=== PATIENT | male | born 1950 | race Caucasian/White ===

== ENCOUNTER → 2017-04-12 13:23 | Outpatient (CLI) | payer OTHER, SELFPAY ==
--- NOTE | 2017-04-12 13:34 | US_ITS ---
STUDY: RENAL ULTRASOUND - COMPLETE REASON FOR EXAM: Male, 66 years old. Stage III chronic renal disease. TECHNIQUE: Ultrasound evaluation of the kidneys was performed with real-time and static kelsey-scale imaging. COMPARISON: None. FINDINGS: RIGHT KIDNEY: Normal location of the right kidney, which is normal in size. The right kidney measures 9.8 cm x 4.6 cm x 4.9 cm. There is a normal cortex of the right kidney. The renal cortex measures 1.4 cm. There is a 0.7 cm x 0.8 cm x 0.6 cm cyst. There are no right renal calculi. There is no right hydronephrosis. DISTAL RIGHT URETER: There is non-visualization of the distal right ureter. There is no demonstrated right ureterovesical junction calculus. There is no demonstrated right ureteral jet. LEFT KIDNEY: Normal location of the left kidney, which is normal in size. The left kidney measures 9.0 cm x 3.3 cm x 4.2 cm. There is a normal cortex of the left kidney. The renal cortex measures 1.0 cm. There is a 0.9 cm x 1.1 cm x 0.8 cm cyst. There are no left renal calculi. There is no left hydronephrosis. DISTAL LEFT URETER: There is non-visualization of the distal left ureter. There is no demonstrated left ureterovesical junction calculus. There is no demonstrated left ureteral jet. BLADDER: The bladder is empty at the time of the examination. US/Kidney and Bladder IMPRESSION: Small bilateral renal cysts. Electronically Signed: Ant Lopez MD at 15:56 EST Tel [phone], Service support ,
== END ==
PROVIDERS: Family Provider Family Medicine; PCP Family Medicine
DX: N18.3 Chronic kidney disease, stage 3 (moderate) (principal)
CPT/HCPCS: 76770

== ENCOUNTER → 2017-05-27 10:21 | Outpatient (CLI) | payer OTHER, SELFPAY ==
[2017-05-27 11:13] LABS: Absolute Lymphocyte Count 1.68 X10^3/ul (0.83-4.51); Absolute Neutrophil Count 2.9 X10^3/uL (2.0-7.7); Basophil# 0.01 X10^3/uL; Basophil% 0.2 % (0-1); Eosinophil# 0.06 X10^3/uL; Eosinophils% 1.1 % (0-5); Hematocrit 43.8 % (40-54); Hemoglobin 14.7 g/dl (13.0-16.5); Lymphocyte # 1.68 X10^3/ul (4.0); Lymphocyte % 31.8 % (19-41); Mean Corp Hgb Conc 33.6 g/gl (32-36); Mean Corpuscular Hgb 30.9 pg (27.0-32.0); Mean Platelet Vol. 10.7 fl (6.2-12.0); Monocyte# 0.62 X10^3/uL; Monocyte% 11.7 % (0-10); Neutrophil # 2.89 X10^3/uL (2.7-7.7); Neutrophil % 54.6 % (47-70); Platelet Count 166 K/mm3 (150-450); RBC Distribution Width CV 13.9 % (11.6-14.6); RBC Distribution Width SD 45.6 fl (35.1-43.9); Red Blood Count 4.76 M/mm3 (4.6-6.2); White Blood Count 5.3 K/mm3 (4.4-11.0)
[2017-05-27 11:36] LABS: Albumin, Serum 3.7 g/dL (3.2-5.0); BUN 29 mg/dL (7-18); BUN/Creat Ratio 11.8 RATIO (10-20); Calcium,Total 8.4 mg/dL (8.5-10.1); Chloride 102 mmol/L (98-107); Creatinine, Serum 2.45 mg/dL (0.70-1.30); EST Glomerular Filtration Rate 28 mL/min (>60); Est Glom Filt Rate - Afr Amer 34 mL/min (>60); Glucose 295 mg/dL (74-106); POSITIVE COUNT NO; POSITIVE DIFFERENTIAL NO; POSITIVE MORPHOLOGY NO; Phosphorus 4.1 mg/dL (2.5-4.9); Potassium 3.8 mmol/L (3.5-5.1); Sodium Level 137 mmol/L (136-145)
[2017-05-27 11:43] LABS: Hemoglobin A1c 9.7 % (4.2-6.3); PTHIN 59.9 pg/mL (18.4-80.1); Vitamin D,25 Hydroxy 12.7 ng/mL (29.95-100.01)
[2017-05-27 13:19] LABS: Protein, Urine (Random) 40.9 mg/dL (<11.9); Protein:Creat Ratio 179 mg/g CRE (0-200)
== END ==
PROVIDERS: Family Provider Family Medicine; PCP Family Medicine
DX: E11.22 Type 2 diabetes mellitus with diabetic chronic kidney disease (principal); N18.3 Chronic kidney disease, stage 3 (moderate); E55.9 Vitamin D deficiency, unspecified
CPT/HCPCS: 36415; 80069; 82306; 82570; 83036; 83970; 84156; 85025

== ENCOUNTER → 2017-07-11 13:24 | Outpatient (CLI) | payer OTHER, SELFPAY ==
[2017-07-11 15:32] LABS: Absolute Lymphocyte Count 1.63 X10^3/ul (0.83-4.51); Absolute Neutrophil Count 4.9 X10^3/uL (2.0-7.7); Basophil# 0.03 X10^3/uL; Basophil% 0.4 % (0-1); Eosinophil# 0.05 X10^3/uL; Eosinophils% 0.7 % (0-5); Hemoglobin 14.6 g/dl (13.0-16.5); Lymphocyte # 1.63 X10^3/ul (4.0); Lymphocyte % 23.1 % (19-41); Mean Corp Hgb Conc 34.8 g/gl (32-36); Mean Corpuscular Hgb 31.5 pg (27.0-32.0); Mean Corpuscular Volume 90.5 fL (80-94); Mean Platelet Vol. 10.9 fl (6.2-12.0); Monocyte# 0.43 X10^3/uL; Monocyte% 6.1 % (0-10); Neutrophil # 4.91 X10^3/uL (2.7-7.7); Neutrophil % 69.6 % (47-70); Platelet Count 157 K/mm3 (150-450); RBC Distribution Width CV 13.6 % (11.6-14.6); RBC Distribution Width SD 44.9 fl (35.1-43.9); Red Blood Count 4.64 M/mm3 (4.6-6.2); White Blood Count 7.1 K/mm3 (4.4-11.0)
[2017-07-11 15:34] LABS: POSITIVE COUNT NO; POSITIVE DIFFERENTIAL NO; POSITIVE MORPHOLOGY NO
[2017-07-11 15:51] LABS: Albumin, Serum 3.8 g/dL (3.2-5.0); BUN 16 mg/dL (7-18); BUN/Creat Ratio 14.3 RATIO (10-20); Calcium,Total 8.9 mg/dL (8.5-10.1); Chloride 105 mmol/L (98-107); Creatinine, Serum 1.12 mg/dL (0.70-1.30); EST Glomerular Filtration Rate 70 mL/min (>60); Est Glom Filt Rate - Afr Amer 85 mL/min (>60); Glucose 173 mg/dL (74-106); Phosphorus 2.5 mg/dL (2.5-4.9); Potassium 3.4 mmol/L (3.5-5.1); Sodium Level 140 mmol/L (136-145)
== END ==
PROVIDERS: Family Provider Family Medicine; PCP Family Medicine
DX: N18.4 Chronic kidney disease, stage 4 (severe) (principal)
CPT/HCPCS: 36415; 80069; 85025

== ENCOUNTER → 2017-12-04 14:11 | Outpatient (CLI) | payer MEDICARE, OTHER, SELFPAY ==
[2017-12-04 15:57] LABS: Absolute Lymphocyte Count 1.56 X10^3/ul (0.83-4.51); Absolute Neutrophil Count 3.7 X10^3/uL (2.0-7.7); Basophil# 0.02 X10^3/uL; Basophil% 0.3 % (0-1); Eosinophil# 0.11 X10^3/uL; Eosinophils% 1.9 % (0-5); Hematocrit 46.4 % (40-54); Hemoglobin 15.3 g/dl (13.0-16.5); Lymphocyte # 1.56 X10^3/ul (4.0); Lymphocyte % 26.7 % (19-41); Mean Corpuscular Hgb 29.9 pg (27.0-32.0); Mean Corpuscular Volume 90.8 fL (80-94); Mean Platelet Vol. 11.3 fl (6.2-12.0); Monocyte# 0.42 X10^3/uL; Monocyte% 7.2 % (0-10); Neutrophil # 3.72 X10^3/uL (2.7-7.7); Neutrophil % 63.7 % (47-70); Platelet Count 151 K/mm3 (150-450); RBC Distribution Width CV 13.6 % (11.6-14.6); RBC Distribution Width SD 45.2 fl (35.1-43.9); Red Blood Count 5.11 M/mm3 (4.6-6.2); White Blood Count 5.8 K/mm3 (4.4-11.0)
[2017-12-04 16:01] LABS: POSITIVE COUNT NO; POSITIVE DIFFERENTIAL NO; POSITIVE MORPHOLOGY NO
[2017-12-04 16:46] LABS: Hemoglobin A1c 6.4 % (4.2-6.3)
[2017-12-04 16:54] LABS: Vitamin D,25 Hydroxy 41.3 ng/mL (29.95-100.01)
[2017-12-04 16:55] LABS: PTHIN 38.6 pg/mL (18.4-80.1)
[2017-12-04 16:56] LABS: ALB/GLOB Ratio 1.1 RATIO (0.9-2.4); AST(SGOT) 22 U/L (15-37); Alanine Aminotransfer ALT/SGPT 19 U/L (16-61); Albumin, Serum 3.5 g/dL (3.2-5.0); Alkaline Phosphatase 96 U/L (45-117); Anion Gap 4 (5-15); BUN 12 mg/dL (7-18); BUN/Creat Ratio 10.7 RATIO (10-20); Calcium,Total 8.6 mg/dL (8.5-10.1); Chloride 104 mmol/L (98-107); Cholesterol 142 mg/dL (200); Creatinine, Serum 1.12 mg/dL (0.70-1.30); EST Glomerular Filtration Rate 70 mL/min (>60); Est Glom Filt Rate - Afr Amer 85 mL/min (>60); Globulin 3.3 g/dL (2.2-4.2); Glucose 64 mg/dL (74-106); High Density Lipoprotein 36 mg/dL; Phosphorus 3.3 mg/dL (2.5-4.9); Potassium 3.5 mmol/L (3.5-5.1); Protein, Total 6.8 g/dL (6.4-8.2); Sodium Level 137 mmol/L (136-145); Thyroid Stim Hormone (TSH) 1.46 uIU/mL (0.358-3.74); Triglycerides 193 mg/dL; Very Low Density Lipoprotein 39 mg/dL (5-40)
== END ==
PROVIDERS: Family Provider Family Medicine; PCP Family Medicine; Referring Provider Family Medicine; Visit Provider Family Medicine
DX: I12.9 Hypertensive chronic kidney disease with stage 1 through stage 4 chronic kidney disease, or unspecified chronic kidney disease (principal); E11.22 Type 2 diabetes mellitus with diabetic chronic kidney disease; N18.4 Chronic kidney disease, stage 4 (severe); E78.5 Hyperlipidemia, unspecified; E55.9 Vitamin D deficiency, unspecified
CPT/HCPCS: 36415; 80053; 80061; 82306; 83036; 83970; 84100; 84443; 85025

== ENCOUNTER → 2017-12-05 10:54 | Outpatient (CLI) | payer MEDICARE, OTHER, SELFPAY ==
[2017-12-05 12:24] LABS: Cholesterol 136 mg/dL (200); High Density Lipoprotein 32 mg/dL; Triglycerides 260 mg/dL; Very Low Density Lipoprotein 52 mg/dL (5-40)
== END ==
PROVIDERS: Family Provider Family Medicine; PCP Family Medicine; Referring Provider Family Medicine; Visit Provider Family Medicine
DX: E78.5 Hyperlipidemia, unspecified (principal); I12.9 Hypertensive chronic kidney disease with stage 1 through stage 4 chronic kidney disease, or unspecified chronic kidney disease; E11.22 Type 2 diabetes mellitus with diabetic chronic kidney disease; N18.3 Chronic kidney disease, stage 3 (moderate)
CPT/HCPCS: 36415; 80061

== ENCOUNTER 2017-12-19 08:48 | Outpatient (RCR) | payer MEDICARE, OTHER, SELFPAY | END 2017-12-25 23:59 | LOC: DC 08:48 | PROVIDERS: Family Provider Family Medicine; PCP Family Medicine | DX: E11.65 Type 2 diabetes mellitus with hyperglycemia (principal); Z68.27 Body mass index [BMI] 27.0-27.9, adult; Z71.3 Dietary counseling and surveillance | CPT/HCPCS: G0108 ==

== ENCOUNTER 2017-12-23 05:37 | Inpatient (IN) | payer MEDICARE, OTHER, SELFPAY ==
[2017-12-23] VITALS (41 sets, daily range): BP systolic 81–130; BP diastolic 43–118; PULSE 45–82; RESP 11–21; TEMP 36.8; O2SAT 92–100; BMI 28.3; BMI 28.2
--- NOTE | 2017-12-23 05:38 | EKG12_ITS ---
Test Reason : CP Blood Pressure : / mmHG Vent. Rate : 047 BPM Atrial Rate : 047 BPM P-R Int : 196 ms QRS Dur : 084 ms QT Int : 482 ms P-R-T Axes : 050 032 108 degrees QTc Int : 426 ms Sinus bradycardia Low voltage QRS ST elevation consider inferior injury or acute infarct ACUTE MT / STEMI Consider right ventricular involvement in acute inferior infarct Abnormal ECG Confirmed by FILEMON BOLIVAR, MERVAT ([id number]), newspaper photo editor DUTCH JOHNSON ([id number]) on 12/24/2017 10:30:58 AM Referred By: Tyler Sena Confirmed By:MERVAT COLBERT MD
--- NOTE | 2017-12-23 05:40 | ED.RN ---
NO OLD EKGS IN MUSE.
[2017-12-23] MEDS: 0.9% Normal Saline 1,000 ML 999 ML IV (05:50)
--- NOTE | 2017-12-23 05:50 | RAD_ITS ---
STUDY: X-RAY CHEST REASON FOR EXAM: Male, 67 years old. STEMI alert, chest pain TECHNIQUE: Single AP portable view of the chest. COMPARISON: None. FINDINGS: The lungs are clear and expanded. There is no demonstrated pleural abnormality. Normal size heart. Normal mediastinum and malcolm. Normal visualized pulmonary arteries. Normal visualized aortic arch and descending thoracic aorta. Normal visualized thoracic spine. Normal visualized ribs, clavicles, and shoulders. There is no demonstrated abnormality of the visualized soft tissue structures of the upper abdomen. RAD/Chest 1 View (Portable) IMPRESSION: Normal x-ray examination of the chest. Electronically Signed: Ramandeep Saunders MD at 6:10 EDT , Service support ,
[2017-12-23] MEDS: Aspirin 81 MG TAB.CHEW 324 MG PO (05:53)
[2017-12-23] MEDS: Heparin Injection (Vial) 5,000 UNIT/ML VIAL 6000 UNIT IV (06:03)
--- NOTE | 2017-12-23 06:06 | ED.VISSUMM ---
- ER Visit Summary Date of Service: 12/23/17 Chief Complaint: Acute chest pain History of Present Illness: The patient is a 67 M history of coronary disease with 6 prior cardiac stents. The most recent placed in 2014. Patient also has a history of high blood pressure, high cholesterol, reflux and insulin-dependent diabetes. Patient states that around 2:30 this morning he awoke with chest pressure in the midsternal region. With pain radiating to his left arm. States this has been constant. The nitroglycerin he had at home the prescription is old so he did not take any. He did take his normal Plavix on Saturday. And he takes daily baby aspirin. He denies shortness of breath. He denies vomiting or diarrhea. No melena. No prior DVT or PE. No recent travel, surgery or hospitalization. Physical Examination: Initial blood pressure 130/118. Heart rates 45. Pulse ox 98% on room air no hypoxia. H EENT exam unremarkable. Neck nontender. Lungs clear to auscultation bilaterally. Heart bradycardic rate about 50 no murmur. Chest wall nontender. But he is diaphoretic. Abdomen soft and nontender. Normal bowel sounds. No peritoneal signs. Patient is moving all 4 extremities. They are neurovascularly intact. 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 Normal dorsi and plantar flexion. Equal and symmetrical radial pulses. Neurologically he is awake and alert with no focal motor deficits. Test Results: Patient's initial EKG shows an acute inferior OR with ST elevation in leads 2, 3 and aVF. He has bradycardic with a rate of 49. He has ST depression in leads V1 through V6 and also 1 and aVL. CBC shows a white count of 13.7. Hemoglobin of 14. Electrolytes show potassium of 3.0. Creatinine of 1.2. Normal gap. PT and PTT are all normal. Troponin is normal less than 0.015. Chest x-ray shows a normal cardiac silhouette mediastinum. No acute abnormality. Read by the radiologist and myself. Emergency Department Course and Treatment: A STEMI team was called shortly after the patient's arrival and immediately after his EKG was done. I have already spoken to Dr. Odell Sena the supervisor erection shop who is on his way in as is the cardiac catheterization team. Patient will be given 324 of aspirin. Started on a heparin bolus and drip. He is currently receiving a liter of normal saline. A second IV has been placed. Patient is already consented for the cardiac catheterization and intervention as needed. Patient did become hypotensive and was started on a liter of normal saline. His heart rate is improving and is currently 65. Treatment Plan: Once the cardiac catheterization team and supervisor erection shop arrive the patient will be taken immediately to the Program Management Specialist. Disposition: admit Impression: Acute inferior OR Acute bradycardia and hypotension History of prior CAD with 6 cardiac stents. History of insulin-dependent diabetes, hypertension and high cholesterol. This note was generated with [employer] dictation software. It may contain incorrect words, spelling, and punctuation that were not noted in review of the chart prior to signing ED Disposition - Plan for ED Patient: Chief Complaint: Chest Pain
--- NOTE | 2017-12-23 06:07 | PCM.HP.STD ---
Problem List (1) STEMI (ST elevation myocardial infarction) Status: Acute Qualifiers: Involved coronary artery: unspecified coronary artery Qualified Code(s): I21.3 - ST elevation (STEMI) myocardial infarction of unspecified site (2) HTN (hypertension) Status: Chronic Qualifiers: Hypertension type: essential hypertension Qualified Code(s): I10 - Essential (primary) hypertension (3) HLD (hyperlipidemia) Status: Chronic Qualifiers: Hyperlipidemia type: pure hypercholesterolemia Qualified Code(s): E78.00 - Pure hypercholesterolemia, unspecified; E78.0 - Pure hypercholesterolemia (4) CAD (coronary artery disease) Status: Chronic Qualifiers: Coronary Disease-Associated Artery/Lesion type: unspecified vessel or lesion type [place] vs. transplanted heart: unspecified whether [place] or transplanted heart Associated angina: angina presence unspecified Qualified Code(s): I25.10 - Atherosclerotic heart disease of [place] coronary artery without angina pectoris (5) Diabetes mellitus, type II Status: Chronic Qualifiers: Diabetes mellitus skilled nursing insulin use: without skilled nursing use Diabetes mellitus complication status: with unspecified complications Qualified Code(s): E11.8 - Type 2 diabetes mellitus with unspecified complications (6) GERD (gastroesophageal reflux disease) Status: Chronic Qualifiers: Esophagitis presence: esophagitis presence not specified Qualified Code(s): K21.9 - Gastro-esophageal reflux disease without esophagitis History of Present Illness Date of Admission: 12/23/17 Chief Complaint: Chest pain The patient is a 67 y/o M w/ PMHx: CAD s/p PCI x 6, HTN, HLD, GERD, Diabetes mellitus type II who presents to the [facility] ED on 12/23/17 with history of onset midsternal chest pressure, described as tightness with radiation to his BL UE with no associated dyspnea, nausea, emesis or diaphoresis while laying in bed, rated initially 10/10 and improving while in the ED to 8/10; however, continued discomfort to his BL UE, noting initially more uncomfortable in his LUE and then transitioning to his RUE. In the ED STEMI called upon EKG being obtained w/ noted ST elevations II, III and aVF. Cardiology consulted per ED and patient administered 81 mg po x 4 with noted compliance with his plavix regimen therefore heparin bolus and additional antiplt load deferred per Cardiology. Additional work-up in the ED included T 98.3, HR 45-->60, BP 130/118-->93/64, RR 17, 98% on RA, CBC w/ WBC 13.7, Hgb 14.5, Plts 220 with L shift, pending coags, pending BMP, pending trop upon evaluation, CXR without acute findings. Past Medical History Past Medical History (Chronic Problems): Chronic Problems HTN (hypertension) (Chronic) HLD (hyperlipidemia) (Chronic) CAD (coronary artery disease) (Chronic) Diabetes mellitus, type II (Chronic) GERD (gastroesophageal reflux disease) (Chronic) Allergies lisinopril Allergy (Verified 12/23/17 05:41) COUGH Home Medications: Ambulatory Orders Medication Instructions Recorded Aspirin E.C. [Ecotrin] 81 mg PO DAILY@0800 12/23/17 Atorvastatin Calcium [Lipitor] 80 mg PO QHS 12/23/17 Carvedilol [Coreg] 12.5 mg PO BID 12/23/17 Chlorthalidone 25 mg PO DAILY 12/23/17 Clopidogrel Bisulfate [Plavix] 75 mg PO DAILY 12/23/17 Lactobacillus Acidophilus 1 capsule PO DAILY 12/23/17 [Acidophilus] Lansoprazole 15 mg PO DAILY 12/23/17 Psyllium [Metamucil] 1 packet PO DAILY 12/23/17 Surgical History: - - PCI x 6, appendectomy, eye surgery in youth. Psychiatric History: Depression Lives: Alone Smoking Status: Never smoker Tobacco Use: Non-smoker Alcohol: None Drugs: None - *Family History Maternal History Items: - - Patient denies any marked maternal or paternal family history of heart disease, diabetes, cancer. Paternal History Items: - - Patient denies any marked maternal or paternal family history of heart disease, diabetes, cancer. Review of Systems Constitutional: Denies: Chills, Fever, Weight Change HEENT: Denies: Head Aches, Sinus Congestion, Sinus Drainage Cardiovascular: Reports: Chest Pain, Chest Pressure, Chest Tightness. Denies: Light Headedness, Orthopnea, Palpitations Respiratory: Denies: Cough, Shortness of breath at rest, Sputum production Gastrointestinal: Denies: Abdominal Pain, Nausea, Vomiting Genitourinary: Denies: Dysuria Musculoskeletal: Reports: Arm Pain. Denies: Joint Pain, Joint Tenderness Skin: Denies: Rash, Wounds Neurological: Denies: Numbness, Tingling, Focal weakness Psychiatric: Reports: Depression. Denies: Anxiety, Homicidal Ideations, Suicidal Ideations Hematologic/ Lymphatic: Reports: Easy Bruising, Easy Bleeding VTE Information - Inpt Only VTE Present on Admission: No VTE Mechan Device Prophylaxis: SCD's VTE Pharm Prophylaxis ordered?: Yes Patient Problems: Active and Suspected Problems STEMI (ST elevation myocardial infarction) (Acute) Subjective: Seated upright in the ED bed, fatigued appearance, uncomfortable appearing, notes ongoing pain to the BL UE currently, chest midsternal pressure lessening. Objective: Physical Examination: General: awake, alert, oriented x 3 and cooperative, seated upright in the ED bed, notes uncomfortable. Skin: normal color, turgor, no icterus, cyanosis. HEENT: AT/NC, EOMI, PERRLA, MMM, no carotid bruits or JVD noted. Lungs: CTA bilaterally, moderate effort, mild decrease BL bases, no rales, ronchi or wheezing. Heart: Regular rate and rhythm; no gallop, rub audible. Abdomen: soft, overweight, TTP, ND, normal BS, no HSM. Extremities: no cyanosis, clubbing, or edema. Neurological: patient awake, alert, oriented x 3; cognitive function intact; pupils equally reactive to light and accomodation; cranial nerves II-XII grossly normal, moving all 4 extremities, no focal deficits, strength moderately globally decreased secondary to acute presentation. Psychiatric: affect appears anxious, no acute evidence of depressive feelings. - Physical Exam Vital Signs Temp Pulse Resp BP Pulse Ox 98.3 F 45 L 17 130/118 H 98 12/23/17 05:38 12/23/17 05:38 12/23/17 05:38 12/23/17 05:38 12/23/17 05:38 Oxygen Delivery Method Room Air Weight: 186 lb 4.65 oz Body Mass Index (BMI) 28.3 Laboratory Tests Past 24 Hrs 12/23/17 12/23/17 12/23/17 05:58 05:58 05:58 WBC Pending RBC Pending Hgb Pending Hct Pending MCV Pending MCH Pending MCHC Pending RDW Pending RDW Differential Pending Plt Count Pending Neut % (Auto) Pending Absolute Neuts (auto) Pending Total Counted Pending PT Pending INR Pending APTT Pending Sodium Pending Potassium Pending Chloride Pending Carbon Dioxide Pending Anion Gap Pending BUN Pending Creatinine Pending Est GFR (MDRD) Af Amer Pending Est GFR (MDRD) Non-Af Pending BUN/Creatinine Ratio Pending Glucose Pending Calcium Pending Troponin I Pending Assessment/Plan All Active Problems STEMI (ST elevation myocardial infarction) (Acute) The patient is a 67 y/o M w/ PMHx: CAD s/p PCI x 6, HTN, HLD, GERD, Diabetes mellitus type II who presents to the [facility] ED on 12/23/17 with history of onset midsternal chest pressure, described as tightness with radiation to his BL UE with no associated dyspnea, nausea, emesis or diaphoresis while laying in bed, rated initially 10/10 and improving while in the ED to 8/10; however, continued discomfort to his BL UE, noting initially more uncomfortable in his LUE and then transitioning to his RUE. (1) Chest Pain w/ Acute STEMI: EKG in ED w/ Inferior STEMI w/ ST elevation II, III, aVF, CXR w/ no acute process. Trop pending upon evaluation. Transitioning now to the cardiac catheterization lab per Cardiology direction. Following intervention, if appropriate, will transition to the ICU, maintain on a monitored bed, continue serial cardiac enzymes and EKGs. Obtain magnesium level upon admission. Continue medical management w/ asa, plavix unless transitioned to Brillinta per Cardiology discretion, BB, statin w/ AM FLP. ECHO ordered. ASA, NG, morphine. (2) CAD: s/p NH w/ PCI x 6, continue home regimen asa, plavix unless transitioned to Brillinta per Cardiology, statin, BB. (3) Diabetes mellitus type II: Not on regimen, obtain HgBA1c, nutrition consultation for education and teaching, once off cardiac catheterization bedrest initiate ADA diet, accu checks w/ ISS. (4) Hypertension: Continue home regimen including Coreg, chlorthalidone although will defer to cardiology for regimen alterations, PRN hydralazine. (5) Hyperlipidemia: Continue home statin regimen. AM FLP. (6) GERD: PPI. (7) DVT Prophylaxis: SCDs, start lovenox 12/24/17. Code Visit Inpatient E&M: 12739 Init Hosp L3
[2017-12-23] MEDS: HEPARIN/D5w 25,000 UNITS 25,000 UNITS/250 ML IV.SOLN. 12 UNITS IV (06:08)
[2017-12-23 06:09] LABS: Absolute Lymphocyte Count 2.46 X10^3/ul (0.83-4.51); Absolute Neutrophil Count 10.1 X10^3/uL (2.0-7.7); Basophil# 0.03 X10^3/uL; Basophil% 0.2 % (0-1); Eosinophil# 0.17 X10^3/uL; Eosinophils% 1.2 % (0-5); Hematocrit 42.6 % (40-54); Hemoglobin 14.5 g/dl (13.0-16.5); Lymphocyte # 2.46 X10^3/ul (4.0); Mean Corpuscular Hgb 30.4 pg (27.0-32.0); Mean Corpuscular Volume 89.3 fL (80-94); Mean Platelet Vol. 10.5 fl (6.2-12.0); Monocyte# 0.91 X10^3/uL; Monocyte% 6.7 % (0-10); Neutrophil # 10.05 X10^3/uL (2.7-7.7); Neutrophil % 73.6 % (47-70); Platelet Count 220 K/mm3 (150-450); RBC Distribution Width CV 13.5 % (11.6-14.6); RBC Distribution Width SD 44.2 fl (35.1-43.9); Red Blood Count 4.77 M/mm3 (4.6-6.2); White Blood Count 13.7 K/mm3 (4.4-11.0)
[2017-12-23 06:10] LABS: POSITIVE COUNT NO; POSITIVE DIFFERENTIAL NO; POSITIVE MORPHOLOGY NO
--- NOTE | 2017-12-23 06:11 | ED.RN ---
PER PT REQUEST, DAUGHTER CONTACTED
[2017-12-23 06:12] LABS: Partial Thromboplast Time 31.9 Seconds (24.1-36.2)
--- NOTE | 2017-12-23 06:12 | ED.DCSUM_ITS ---
- ER Visit Summary Date of Service: 12/23/17 Chief Complaint: Acute chest pain History of Present Illness: The patient is a 67 M history of coronary disease with 6 prior cardiac stents. The most recent placed in 2014. Patient also has a history of high blood pressure, high cholesterol, reflux and insulin-dependent diabetes. Patient states that around 2:30 this morning he awoke with chest pressure in the midsternal region. With pain radiating to his left arm. States this has been constant. The nitroglycerin he had at home the prescription is old so he did not take any. He did take his normal Plavix on Saturday. And he takes daily baby aspirin. He denies shortness of breath. He denies vomiting or diarrhea. No melena. No prior DVT or PE. No recent travel, surgery or hospitalization. Physical Examination: Initial blood pressure 130/118. Heart rates 45. Pulse ox 98% on room air no hypoxia. H EENT exam unremarkable. Neck nontender. Lungs clear to auscultation bilaterally. Heart bradycardic rate about 50 no murmur. Chest wall nontender. But he is diaphoretic. Abdomen soft and nontender. Normal bowel sounds. No peritoneal signs. Patient is moving all 4 extremities. They are neurovascularly intact. 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 Normal dorsi and plantar flexion. Equal and symmetrical radial pulses. Neurologically he is awake and alert with no focal motor deficits. Test Results: Patient's initial EKG shows an acute inferior MT with ST elevation in leads 2, 3 and aVF. He has bradycardic with a rate of 49. He has ST depression in leads V1 through V6 and also 1 and aVL. CBC shows a white count of 13.7. Hemoglobin of 14. Electrolytes show potassium of 3.0. Creatinine of 1.2. Normal gap. PT and PTT are all normal. Troponin is normal less than 0.015. Chest x-ray shows a normal cardiac silhouette mediastinum. No acute abnormality. Read by the radiologist and myself. Emergency Department Course and Treatment: A STEMI team was called shortly after the patient's arrival and immediately after his EKG was done. I have already spoken to Dr. Odell Sena the net development manager who is on his way in as is the cardiac catheterization team. Patient will be given 324 of aspirin. Started on a heparin bolus and drip. He is currently receiving a liter of normal saline. A second IV has been placed. Patient is already consented for the cardiac catheterization and intervention as needed. Patient did become hypotensive and was started on a liter of normal saline. His heart rate is improving and is currently 65. Treatment Plan: Once the cardiac catheterization team and net development manager arrive the patient will be taken immediately to the Plug Sorter. Disposition: admit Impression: Acute inferior MT Acute bradycardia and hypotension History of prior CAD with 6 cardiac stents. History of insulin-dependent diabetes, hypertension and high cholesterol. This note was generated with [employer] dictation software. It may contain incorrect words, spelling, and punctuation that were not noted in review of the chart prior to signing ED Disposition - Plan for ED Patient: Chief Complaint: Chest Pain
--- NOTE | 2017-12-23 06:14 | HP.PCM_ITS ---
Problem List (1) STEMI (ST elevation myocardial infarction) Status: Acute Qualifiers: Involved coronary artery: unspecified coronary artery Qualified Code(s): I21.3 - ST elevation (STEMI) myocardial infarction of unspecified site (2) HTN (hypertension) Status: Chronic Qualifiers: Hypertension type: essential hypertension Qualified Code(s): I10 - Essential (primary) hypertension (3) HLD (hyperlipidemia) Status: Chronic Qualifiers: Hyperlipidemia type: pure hypercholesterolemia Qualified Code(s): E78.00 - Pure hypercholesterolemia, unspecified; E78.0 - Pure hypercholesterolemia (4) CAD (coronary artery disease) Status: Chronic Qualifiers: Coronary Disease-Associated Artery/Lesion type: unspecified vessel or lesion type [place] vs. transplanted heart: unspecified whether [place] or transplanted heart Associated angina: angina presence unspecified Qualified Code(s): I25.10 - Atherosclerotic heart disease of [place] coronary artery without angina pectoris (5) Diabetes mellitus, type II Status: Chronic Qualifiers: Diabetes mellitus fci insulin use: without fci use Diabetes mellitus complication status: with unspecified complications Qualified Code(s): E11.8 - Type 2 diabetes mellitus with unspecified complications (6) GERD (gastroesophageal reflux disease) Status: Chronic Qualifiers: Esophagitis presence: esophagitis presence not specified Qualified Code(s): K21.9 - Gastro-esophageal reflux disease without esophagitis History of Present Illness Date of Admission: 12/23/17 Chief Complaint: Chest pain The patient is a 67 y/o M w/ PMHx: CAD s/p PCI x 6, HTN, HLD, GERD, Diabetes mellitus type II who presents to the [facility] ED on 12/23/17 with history of onset midsternal chest pressure, described as tightness with radiation to his BL UE with no associated dyspnea, nausea, emesis or diaphoresis while laying in bed, rated initially 10/10 and improving while in the ED to 8/10; however, continued discomfort to his BL UE, noting initially more uncomfortable in his LUE and then transitioning to his RUE. In the ED STEMI called upon EKG being obtained w/ noted ST elevations II, III and aVF. Cardiology consulted per ED and patient administered 81 mg po x 4 with noted compliance with his plavix regimen therefore heparin bolus and additional antiplt load deferred per Cardiology. Additional work-up in the ED included T 98.3, HR 45-->60, BP 130/118-->93/64, RR 17, 98% on RA, CBC w/ WBC 13.7, Hgb 14.5, Plts 220 with L shift, pending coags, pending BMP, pending trop upon evaluation, CXR without acute findings. Past Medical History Past Medical History (Chronic Problems): Chronic Problems HTN (hypertension) (Chronic) HLD (hyperlipidemia) (Chronic) CAD (coronary artery disease) (Chronic) Diabetes mellitus, type II (Chronic) GERD (gastroesophageal reflux disease) (Chronic) Allergies lisinopril Allergy (Verified 12/23/17 05:41) COUGH Home Medications: Ambulatory Orders Medication Instructions Recorded Aspirin E.C. [Ecotrin] 81 mg PO DAILY@0800 12/23/17 Atorvastatin Calcium [Lipitor] 80 mg PO QHS 12/23/17 Carvedilol [Coreg] 12.5 mg PO BID 12/23/17 Chlorthalidone 25 mg PO DAILY 12/23/17 Clopidogrel Bisulfate [Plavix] 75 mg PO DAILY 12/23/17 Lactobacillus Acidophilus 1 capsule PO DAILY 12/23/17 [Acidophilus] Lansoprazole 15 mg PO DAILY 12/23/17 Psyllium [Metamucil] 1 packet PO DAILY 12/23/17 Surgical History: - - PCI x 6, appendectomy, eye surgery in youth. Psychiatric History: Depression Lives: Alone Smoking Status: Never smoker Tobacco Use: Non-smoker Alcohol: None Drugs: None - *Family History Maternal History Items: - - Patient denies any marked maternal or paternal family history of heart disease, diabetes, cancer. Paternal History Items: - - Patient denies any marked maternal or paternal family history of heart disease, diabetes, cancer. Review of Systems Constitutional: Denies: Chills, Fever, Weight Change HEENT: Denies: Head Aches, Sinus Congestion, Sinus Drainage Cardiovascular: Reports: Chest Pain, Chest Pressure, Chest Tightness. Denies: Light Headedness, Orthopnea, Palpitations Respiratory: Denies: Cough, Shortness of breath at rest, Sputum production Gastrointestinal: Denies: Abdominal Pain, Nausea, Vomiting Genitourinary: Denies: Dysuria Musculoskeletal: Reports: Arm Pain. Denies: Joint Pain, Joint Tenderness Skin: Denies: Rash, Wounds Neurological: Denies: Numbness, Tingling, Focal weakness Psychiatric: Reports: Depression. Denies: Anxiety, Homicidal Ideations, Suicidal Ideations Hematologic/ Lymphatic: Reports: Easy Bruising, Easy Bleeding VTE Information - Inpt Only VTE Present on Admission: No VTE Mechan Device Prophylaxis: SCD's VTE Pharm Prophylaxis ordered?: Yes Patient Problems: Active and Suspected Problems STEMI (ST elevation myocardial infarction) (Acute) Subjective: Seated upright in the ED bed, fatigued appearance, uncomfortable appearing, notes ongoing pain to the BL UE currently, chest midsternal pressure lessening. Objective: Physical Examination: General: awake, alert, oriented x 3 and cooperative, seated upright in the ED bed, notes uncomfortable. Skin: normal color, turgor, no icterus, cyanosis. HEENT: AT/NC, EOMI, PERRLA, MMM, no carotid bruits or JVD noted. Lungs: CTA bilaterally, moderate effort, mild decrease BL bases, no rales, ronchi or wheezing. Heart: Regular rate and rhythm; no gallop, rub audible. Abdomen: soft, overweight, TTP, ND, normal BS, no HSM. Extremities: no cyanosis, clubbing, or edema. Neurological: patient awake, alert, oriented x 3; cognitive function intact; pupils equally reactive to light and accomodation; cranial nerves II-XII grossly normal, moving all 4 extremities, no focal deficits, strength moderately globally decreased secondary to acute presentation. Psychiatric: affect appears anxious, no acute evidence of depressive feelings. - Physical Exam Vital Signs Temp Pulse Resp BP Pulse Ox 98.3 F 45 L 17 130/118 H 98 12/23/17 05:38 12/23/17 05:38 12/23/17 05:38 12/23/17 05:38 12/23/17 05:38 Oxygen Delivery Method Room Air Weight: 186 lb 4.65 oz Body Mass Index (BMI) 28.3 Laboratory Tests Past 24 Hrs 12/23/17 12/23/17 12/23/17 05:58 05:58 05:58 WBC Pending RBC Pending Hgb Pending Hct Pending MCV Pending MCH Pending MCHC Pending RDW Pending RDW Differential Pending Plt Count Pending Neut % (Auto) Pending Absolute Neuts (auto) Pending Total Counted Pending PT Pending INR Pending APTT Pending Sodium Pending Potassium Pending Chloride Pending Carbon Dioxide Pending Anion Gap Pending BUN Pending Creatinine Pending Est GFR (MDRD) Af Amer Pending Est GFR (MDRD) Non-Af Pending BUN/Creatinine Ratio Pending Glucose Pending Calcium Pending Troponin I Pending Assessment/Plan All Active Problems STEMI (ST elevation myocardial infarction) (Acute) The patient is a 67 y/o M w/ PMHx: CAD s/p PCI x 6, HTN, HLD, GERD, Diabetes mellitus type II who presents to the [facility] ED on 12/23/17 with history of onset midsternal chest pressure, described as tightness with radiation to his BL UE with no associated dyspnea, nausea, emesis or diaphoresis while laying in bed, rated initially 10/10 and improving while in the ED to 8/10; however, continued discomfort to his BL UE, noting initially more uncomfortable in his LUE and then transitioning to his RUE. (1) Chest Pain w/ Acute STEMI: EKG in ED w/ Inferior STEMI w/ ST elevation II, III, aVF, CXR w/ no acute process. Trop pending upon evaluation. Transitioning now to the cardiac catheterization lab per Cardiology direction. Following intervention, if appropriate, will transition to the ICU, maintain on a monitored bed, continue serial cardiac enzymes and EKGs. Obtain magnesium level upon admission. Continue medical management w/ asa, plavix unless transitioned to Brillinta per Cardiology discretion, BB, statin w/ AM FLP. ECHO ordered. ASA, NG, morphine. (2) CAD: s/p VT w/ PCI x 6, continue home regimen asa, plavix unless transitioned to Brillinta per Cardiology, statin, BB. (3) Diabetes mellitus type II: Not on regimen, obtain HgBA1c, nutrition consultation for education and teaching, once off cardiac catheterization bedrest initiate ADA diet, accu checks w/ ISS. (4) Hypertension: Continue home regimen including Coreg, chlorthalidone although will defer to cardiology for regimen alterations, PRN hydralazine. (5) Hyperlipidemia: Continue home statin regimen. AM FLP. (6) GERD: PPI. (7) DVT Prophylaxis: SCDs, start lovenox 12/24/17. Code Visit Inpatient E&M: 16042 Init Hosp L3
[2017-12-23 06:21] LABS: Anion Gap 9 (5-15); BUN 13 mg/dL (7-18); BUN/Creat Ratio 10.8 RATIO (10-20); Calcium,Total 8.9 mg/dL (8.5-10.1); Chloride 104 mmol/L (98-107); EST Glomerular Filtration Rate 65 mL/min (>60); Est Glom Filt Rate - Afr Amer 78 mL/min (>60); Estimated Creatinine Clearance 59.38 ml/min; Glucose 95 mg/dL (74-106); Sodium Level 142 mmol/L (136-145)
--- NOTE | 2017-12-23 06:22 | EKG12_ITS ---
Test Reason : CP Blood Pressure : / mmHG Vent. Rate : 049 BPM Atrial Rate : 049 BPM P-R Int : 204 ms QRS Dur : 086 ms QT Int : 442 ms P-R-T Axes : 083 030 110 degrees QTc Int : [address] elevation consider inferior injury or acute infarct ACUTE MO / STEMI Consider right ventricular involvement in acute inferior infarct Abnormal ECG Confirmed by FILEMON BOLIVAR, MERVAT ([id number]), senior technical editor DUTCH JOHNSON ([id number]) on 12/24/2017 10:31:21 AM Referred By: Tyler Sena Confirmed By:MERVAT COLBERT MD
[2017-12-23] MEDS: 0.9% Normal Saline 1,000 ML 150 ML IV (07:00)
--- NOTE | 2017-12-23 07:42 | ECHOD_ITS ---
Reason For Study: CHEST PAIN Procedure This was a 2D Doppler, Color Flow transthoracic echocardiogram. Exam performed portable in patient room. Left Ventricle Normal size and thickness. The estimated ejection fraction is 65 %. Normal diastology for age. No regional wall motion abnormalities noted. Right Ventricle Normal size and thickness. Normal systolic function. Atria Normal left atrium. Normal right atrium. Normal atrial septum. Mitral Valve The mitral valve is structurally normal. No prolapse or stenosis seen. Tricuspid Valve Normal tricuspid valve. Trivial tricuspid valve insufficiency. Right ventricular systolic pressure estimated to be 31 mmHg. Aortic Valve Trisinus/trileaflet aortic valve. Mild focal aortic valve thickening. Pulmonic Valve Normal pulmonic valve. Great Vessels Normal aortic root. Normal arch. Normal inferior vena cava. Inferior vena cava collapse with respiration. Pericardium/Pleural No pericardial effusion. MMode/2D Measurements & Calculations LVIDd: 5.0 cm IVSd: 1.1 cm Ao root diam: 3.3 cm LVIDs: 3.6 cm LVPWd: 1.0 cm RVDd: 3.8 cm FS: 29.3 % LAV(MOD-bp): 56.9 ml EDV(MOD-sp4): 118.3 ml EDV(MOD-sp2): 150.9 ml LAV(MOD-bp) Indexed: 28.7 ml/m2 ESV(MOD-sp4): 56.8 ml EF(MOD-sp2): 53.8 % LAV(MOD-sp2): 62.2 ml EF(MOD-sp4): 52.0 % LAV(MOD-sp4): 51.0 ml SV(MOD-sp4): 61.5 ml SV(MOD-sp2): 81.2 ml LA A4 area: 18.0 cm2 LA dimension(2D): 4.0 cm RA A4 area: 15.1 cm2 Time Measurements MV dec time: 0.21 sec Doppler Measurements & Calculations MV E max cornelio: 69.9 cm/sec Lat Peak E' Cornelio: 14.3 cm/sec Med Peak E' Cornelio: 6.8 cm/sec MV A max cornelio: 58.6 cm/sec E/E' lat: 4.9 E/E' med: 10.3 MV E/A: 1.2 Ao V2 max: 110.1 cm/sec LV V1 max: 86.6 cm/sec PA V2 max: 81.8 cm/sec Ao max P.8 mmHg LV V1 max P.0 mmHg TR max cornelio: 255.3 cm/sec TR max P.1 mmHg Interpretation Summary The estimated ejection fraction is 65 %. Normal diastology for age. Trivial tricuspid valve insufficiency. Right ventricular systolic pressure estimated to be 31 mmHg. There is no comparison study available. Ordering Physician: Jazmyn Velez Referring Physician: DOUG GALVAN Performed By: Jessica Flores, JULITA, RVT
--- NOTE | 2017-12-23 07:45 | EKG12_ITS ---
Test Reason : S/P PCI
--- NOTE | 2017-12-23 07:55 | CL.D_ITS ---
Patient Name: DOMINGA TREJO Study Date: 12/23/2017 Performing: Tyler Sena MD Ht: 68 inches 172.72 cm : 1950 Wt: 188.2 lbs 85.27 kg Age: 67 Gender: male BSA: 1.99 PROCEDURE(S) PERFORMED [id number]/COR/LV [id number], LAURA AND/OR PTCA, ARTERY OR GRAFT, SINGLE VESSEL CLINICAL PROFILE AND INDICATIONS Patient presents with STEMI for emergent cardiac cath. Indications: ACS <= 24 hrs, New Onset Angina <= 2 months, Stable Known CAD, Cardiac Arrythmia Heart Failure: None Stress/Imaging Stress/Image Study Performed: No Angina Classification Anginal Classification w/in 2 Weeks: No symptoms CAD Presentations: STEMI. Symptom onset Date/Time: 12/23/2017 at 0030 Comorbidities/Risk Factors: Hypertension Dyslipidemia Prior PCI CONCLUSIONS Single vessel CAD of the mid RCA ISR AND OSTIAL PDA RECOMMENDATIONS Referred for immediate PCI Intervention Conclusions: Attempted with several wire to cross 85% ostial PDA without success. Proce dure aborted due to pts back pain. Pt was CP free and ST segments had resolved. Will return in 4 we eks for elective PCI of ostial PDA with long 55 cm sheath. DESCRIPTION OF PROCEDURE The patient arrived to the procedure lab. The risks and benefits of the procedure as well as a full d escription of our services here and current unavailability of surgical backup were fully explained to the patient and/or their significant other prior to the catheterization. The Timeout was completed, verifying the correct patient and procedure. The patient's procedural site was prepped and draped in the usual fashion. Local anesthetic was given subcutaneously to right groin region with Lidocaine 2%. Using a modified [place] technique, arterial access was obtained via the right femoral artery, a 6 Fr sheath was inserted. Left Coronary Artery selective angiography was performed in multiple views u sing a 4 Fr. JL5 catheter. Left Ventriculography was performed in HUERTA projection using a 4 Fr. Pigtai l catheter.The arterial sheath was sutured in place and capped CORONARY ANGIOGRAPHY DOMINANCE: Co- Dominant LEFT HEART ASSESSMENT Left Ventricular Ejection Fraction: by LV Gram 50 % Inferior Basal Hypokinesis - Mild Depressed Left Ventricular systolic function LEFT MAIN: No significant disease noted LEFT ANTERIOR DECENDING ARTERY: PROX LAD: Previously placed stent has an instent 10 % restenosis DIAGONAL 1: Proximal - Mild luminal irregularities less than 30% CIRCUMFLEX ARTERY: DISTAL CIRC: is occluded OM 1: Proximal - Previously placed stent has an instent 30 % restenosis RIGHT CORONARY ARTERY: MID RCA: Previously placed stent has an instent 90 % restenosis RT PDA: Ostial - 85 % Stenosis COMPLICATIONS No Complications PROCEDURE MEDICATIONS Oxygen: 2 L/min via nasal cannula Atropine 1mg/10ml 0.5 amp @ 12/23/2017 06:50:00 Heparin 25,000u / 250ml D5W @ 1200 units on arrival 12/23/2017 06:30:35 Heparin 25,000u / 250ml D5W @ 1200 u/hr discontinued 12/23/2017 07:31:18 IV Bolus: .9 NaCl 1500 ml total 12/23/2017 07:27:24 SUMMARY OF HEMODYNAMIC DATA Time AIR REST ECG 06:25:43 ECG 06:33:14 ECG 06:33:32 LV 101/-6, 22 07:21:45 LV 103/-4, 26 07:21:52 LVp 104/-5, 20 07:21:57 AOp 106/54 (76) 07:22:02 Signed By Tyler Sena MD On 12/23/2017 07:54:07 Tyler Sena MD
[2017-12-23 08:21] LABS: Magnesium 2.1 mg/dL (1.6-2.6)
[2017-12-23 08:50] LABS: Hemoglobin A1c 6.1 % (4.2-6.3)
--- NOTE | 2017-12-23 09:11 | PCM.PN.BLA ---
Progress Note 67-year-old male with past medical history of CAD status post 6 stents, hypertension, hyperlipidemia, not following with a signaler for the past 2 years who comes in with complaints of chest pain. Patient had a STEMI in the ED, transferred to the [facility]. He is status post cardiac cath, he had a stent placed in his mid RCA.He is being managed post-cath in the ICU, denies any more chest pain or dizziness. He had an episode of hypotension in the [facility] and was started on low-dose levophed. Continue to follow up on management post cath. Follow-up on cardiology recommendations per ICU protocol.
[2017-12-23] MEDS: Aspirin E.C. 81 MG Tablet PO (09:48)
[2017-12-23] MEDS: Pantoprazole Sodium 20 MG Tablet PO (09:49)
[2017-12-23] MEDS: Chlorthalidone 50 MG Tablet 25 MG PO (09:49)
[2017-12-23] MEDS: Clopidogrel Bisulfate 75 MG Tablet PO ×2 (09:49→22:01)
--- NOTE | 2017-12-23 10:11 | CASEMGMT ---
RN EMPERATRIZ Assesmmnaldo Pt presented to ER with STEMI. On Plavix. PCP: Dr. Love Insurance:[facility] Prescription Benefit:? yes LNOK: Daughter Living Arrangements: mobile home, ramp to front of home, steps into back. Furnace is not working. Pt states he has not had anyone come to fix furnace due to anticipated costs. Using two space heaters- pt states I know how to use them safely. Transportation: Drives DME/HHC: No DME use per pt. Social Work Referral. DANNY [place] updated. ? Plan: DC PLAN home on discharge.
--- NOTE | 2017-12-23 10:58 | CRPHASE1 ---
Patient Data/Charges Phase II Referral:: [facility] Start Phase II:: FOLLOWING OFFICE VISIT WITH [facility]OURNEY[facility]TERN[facility]ER Risk Factors/Lifestyle Smoking Status: Never smoker Hx Hypertension: Yes Hx Diabetes Mellitus Type 2: Yes Hx Metabolic Disorders: Yes Hx Dyslipidemia: Yes Hx Obesity: No - BMI 28.2 Height: 5 ft 8 in Stress: Home/Family Risk Factor for Sedentary Lifestyle: Moderate Risk Past Cardiac Illness: Coronary Artery Disease, Previous PCI w/Stent Laboratory Values: Cardiac Rehab Phase I Labs Hemoglobin A1c 6.1 % (4.2-6.3) 12/23/17 05:58 Phase I Education Given On:: [place], Nutrition, Antiplatelet medication, Diabetes - Type II Issues Affecting Care:: None Knowledge of Condition:: Yes Learning Preferences: Verbal, Written Hospital Course Presenting Symptoms:: STEMI Medical/Surgical History MT:: Yes - STEMI CAD:: Yes COPD:: No Diabetes:: Yes Diabetes Type II:: Yes Hypertension:: Yes Dyslipidemia:: Yes GERD:: Yes PTCA:: Yes - X6 Discharge/Home/Social Eval Discharge Disposition: Home
[2017-12-23 11:00] LABS: ACT Activated Clotting Time 208 sec (74-137)
[2017-12-23 11:00] LABS: ACT Activated Clotting Time 224 sec (74-137)
--- NOTE | 2017-12-23 11:00 | CRPH1.INSTRU ---
General Education CAD and cardiac anatomy and function:: Patient communicates acknowledgment Explanation of diagnoses and procedures:: Patient communicates acknowledgment Sign/Symptoms of NE:: Patient communicates acknowledgment Antiplatelet therapy: Patient communicates acknowledgment Proper use of NTG-SL: Not instructed Emergency procedures and activation of EMS: Patient communicates acknowledgment Compliance of all prescribed medications: Patient communicates acknowledgment Smoking Patient Nicotine/Smoking Risk Factors Are:: Never smoked Dyslipidemia Patient Dyslipidemia Risk Factors Are:: Total Cholesterol, Triglycerides, HDL, LDL Recommendations Include:: Lipid profile provided, Reviewed NCEP/ATP guidelines, Therapeutic Lifestyle Change dietary guidelines Dyslipidemia Response Code:: Patient communicates acknowledgment Overweight/Obesity Patient Overweight/Obesity Risk Factors Are:: BMI Normal [24-29 & > 65 years old] Recommendations Include:: Weight loss of 5-10%, Reduced calorie diet, Exercise 5-7 times/week Overweight/Obesity:: Patient communicates acknowledgment Hypertension Recommendations Include:: BP <130/80 if diabetic, DASH dietary guidelines, Decrease/maintain normal body weight, Moderation of ETOH Hypertension:: Patient communicates acknowledgment Heart Disease Patient Heart Disease Risk Factors Are:: Previous cardiac event Heart Disease Response Code:: Patient communicates acknowledgment Diabetes Patient Diabetes Risk Factors Are:: Elevated blood sugars Recommendations Include:: Maintain fasting blood sugars 70-110 md/dL, Maintain HgbA1c of 6% or less, Monitor blood sugar as prescribed, Diabetic dietary guidelines, Decrease/maintain body weight Diabetes:: Patient communicates acknowledgment Metabolic Syndrome Patient Metabolic Syndrome Risk Factors Are [3 of 5]:: Waist circumference > 35 [female] or 40 [male], High triglyceride >150, Hypertension, Low HDL <40 [male] or < 50 [female] Recommendations Include:: Reinforce compliance to risk factor modifications, Patient is diabetic, Encouraged follow-up with Primary Care Physician Metabolic Syndrome Response Code:: Patient communicates acknowledgment Sedentary Patient Sedentary Risk Factors Are:: Lack of regular exercise Recommendations Include:: Aerobic exercise 5-7 times/week for 20-30 minutes continuously, Benefits of regular exercise, Discussed home walking program, Monitored Outpatient Cardiac Rehab Sedentary Response Code:: Patient communicates acknowledgment Stress Recommendations Include:: Identification of stressors, and assessment of coping skills, Stress management techniques Stress Response Code:: Patient communicates acknowledgment
[2017-12-23 11:05] LABS: ACT Activated Clotting Time 147 sec (74-137)
[2017-12-23 11:25] LABS: Bedside Glucose 117 mg/dL (70-110)
--- NOTE | 2017-12-23 11:26 | CASEMGMT ---
RN and CM told SW that patient's furnace is broken. SW spoke with [employer] and they do not assist with furnace repairs. SW called [employer] and the have 2 grants where they can possibly assist with fixing furnaces. SW gave patient a [employer] brochure and circled the number he needs to call to see if he may be eligible for help. He said he could stay at his daughter's home, but really does not want to. 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
[2017-12-23 17:10] LABS: Bedside Glucose 120 mg/dL (70-110)
[2017-12-23] MEDS: Carvedilol 3.125 MG TABLET PO (22:01)
[2017-12-23] MEDS: Atorvastatin Calcium 80 MG Tablet PO (22:01)
[2017-12-23] MEDS: Insulin Lispro 100 UNIT/ML INSULN.PEN SC (22:06)
[2017-12-23 22:20] LABS: Bedside Glucose 164 mg/dL (70-110)
[2017-12-24] VITALS (25 sets, daily range): BP systolic 98–132; BP diastolic 54–86; PULSE 48–94; RESP 14–19; TEMP 36.6–37.3; O2SAT 92–97
[2017-12-24] MEDS: Enoxaparin 40 MG/0.4 ML Syringe SC (05:34)
[2017-12-24 05:57] LABS: Hemoglobin 12.7 g/dl (13.0-16.5); Mean Corp Hgb Conc 33.4 g/gl (32-36); Mean Corpuscular Hgb 30.5 pg (27.0-32.0); Mean Corpuscular Volume 91.1 fL (80-94); Mean Platelet Vol. 10.6 fl (6.2-12.0); Platelet Count 141 K/mm3 (150-450); RBC Distribution Width CV 13.8 % (11.6-14.6); RBC Distribution Width SD 45.4 fl (35.1-43.9); Red Blood Count 4.17 M/mm3 (4.6-6.2); White Blood Count 7.2 K/mm3 (4.4-11.0)
[2017-12-24 05:58] LABS: Scan Indicated on CBC? Y/N NO
[2017-12-24 06:12] LABS: Anion Gap 10 (5-15); BUN 13 mg/dL (7-18); BUN/Creat Ratio 12.7 RATIO (10-20); Calcium,Total 8.2 mg/dL (8.5-10.1); Chloride 107 mmol/L (98-107); Cholesterol 99 mg/dL (200); Creatinine, Serum 1.02 mg/dL (0.70-1.30); EST Glomerular Filtration Rate 78 mL/min (>60); Est Glom Filt Rate - Afr Amer 94 mL/min (>60); Estimated Creatinine Clearance 69.85 ml/min; Glucose 108 mg/dL (74-106); High Density Lipoprotein 24 mg/dL; Potassium 3.3 mmol/L (3.5-5.1); Sodium Level 143 mmol/L (136-145); Triglycerides 125 mg/dL; Very Low Density Lipoprotein 25 mg/dL (5-40)
--- NOTE | 2017-12-24 07:45 | EKG12_ITS ---
Test Reason : S/P PCI Blood Pressure : / mmHG Vent. Rate : 056 BPM Atrial Rate : 056 BPM P-R Int : 162 ms QRS Dur : 086 ms QT Int : 484 ms P-R-T Axes : 041 005 -16 degrees QTc Int : 467 ms Sinus bradycardia with occasional Premature ventricular complexes Low voltage QRS Borderline ECG No previous ECGs available Confirmed by MORE BOLIVAR, CHARLIE ([id number]), editorial project manager DUTCH JOHNSON ([id number]) on 01/03/2018 8:35:24 AM Referred By: Tyler Sena Confirmed By:CHARLIE AGUERO MD
[2017-12-24] MEDS: Aspirin E.C. 81 MG Tablet PO (08:33)
[2017-12-24 08:45] LABS: Bedside Glucose 98 mg/dL (70-110)
--- NOTE | 2017-12-24 10:05 | PCM.PN.CARD ---
Subjectve: Patient doing very well this morning. Telemetry negative. Echocardiogram pending. No further chest pain. Right groin is clean/dry/intact, without evidence of thrills or bruits. Peak troponin thus far is 4.7. Hemoglobin and creatinine within nominal limits. Objective: Vital Signs Temp Pulse Resp BP Pulse Ox 98.4 F 65 18 120/75 95 12/24/17 02:00 12/24/17 08:00 12/24/17 08:00 12/24/17 08:00 12/24/17 08:00 Oxygen Flow Rate (L/min) 2 Oxygen Delivery Method Room Air Weight: 186 lb 11.704 oz Body Mass Index (BMI) 28.2 Intake and Output for Last 24 Hours 12/22/17 12/23/17 12/24/17 23:59 23:59 23:59 Intake Total 1423 / 1423 Output Total 1150 / 1150 500 / 500 Balance 273 / 273 -500 / -500 General: Awake, Alert, Oriented x 3 HEENT: PERRL, EOMI, Sclera Non Icteric Neck: Supple, Good ROM, No Lymph Node Enlargement Lungs: Clear to auscultation Cardiovascular: Regular Rhythm, Normal S1, Normal S2, No Murmurs, No Rubs, No Gallops Vascular: No Carotid Bruits, Normal Femoral Pulses, Normal Radial Pulses, Normal Dorsalis Pedal Pulse, Normal Posterior Tibial Pulses Abdomen: Bowel Sounds Present, Soft, Non Tender, No HSM, No Organomegaly Extremities: No Cyanosis, No Clubbing, No edema Neurological: No Focal Motor or Sensory Deficit 12/23/17 09:47: Troponin I 1.060 H* 12/23/17 12:50: Troponin I 2.950 H* 12/23/17 15:45: Troponin I 4.760 H* 12/24/17 05:35: WBC 7.2, RBC 4.17 L, Hgb 12.7 L, Hct 38.0 L, MCV 91.1, MCH 30.5, MCHC 33.4, RDW 13.8, RDW Differential 45.4 H, Plt Count 141 L, MPV 10.6 12/24/17 05:35: Sodium 143, Potassium 3.3 L, Chloride 107, Carbon Dioxide 26.0, Anion Gap 10, BUN 13, Creatinine 1.02, Est GFR (MDRD) Af Amer 94, Est GFR (MDRD) Non-Af 78, BUN/Creatinine Ratio 12.7, Glucose 108 H, Calcium 8.2 L, Triglycerides 125, Cholesterol 99, LDL Cholesterol 50, VLDL Cholesterol 25, HDL Cholesterol 24 L Rhythm: EKG: Normal sinus rhythm with resolving inferior ST segment changes. ECHO: Pending Stress Test: Cardiac Cath: PCI: CT Surgery: Holter monitor: EPS: PPM: CXR: Chest CT Scan: Medical Necessity - Tobacco Use Smoking Status: Never smoker Tobacco Use: Non-smoker Assessment/Plan 1. Coronary artery disease: The patient presented with acute inferior wall myocardial infarction for significant in-stent restenosis/thrombosis of his mid RCA. Patient underwent successful angioplasty and drug-eluting stenting to the mid RCA with an excellent result. We attempted to gain access to the ostial portion of the PDA but were unable to pass a wire due to the angle and tortuosity of the RCA. As the patient's symptoms had resolved as well as his ST segment changes, we elected to leave this for a later day electively in about 4 weeks time. In the meantime the patient will continue baby aspirin, Plavix, beta-blockers, and losartan. He will return in 4 weeks time for elective PCI of the PDA. His left circumflex and LAD stents had minimal nonobstructive disease and did not require any further intervention. Echo edwinamontez Kumar is pending today however his LV function at the end of the procedure was relatively intact. His peak troponin thus far is 4.7. 2. Hyperlipidemia: Continue aggressive LDL reduction. Continue Lipitor therapy. 3. Patient will continue in ICU and may proceed to stepdown if indicated or necessary, and may be discharged home tomorrow 12/25/17. Code Visit Inpatient E&M: 42017 Subs Hosp L2
[2017-12-24] MEDS: Carvedilol 3.125 MG TABLET PO ×2 (10:06→22:33)
[2017-12-24] MEDS: Psyllium 1 PACKET PO (10:07)
[2017-12-24] MEDS: Losartan Potassium 25 MG Tablet PO (10:07)
[2017-12-24] MEDS: Clopidogrel Bisulfate 75 MG Tablet PO ×2 (10:07→22:33)
[2017-12-24] MEDS: Chlorthalidone 50 MG Tablet 25 MG PO (10:07)
[2017-12-24] MEDS: Pantoprazole Sodium 20 MG Tablet PO (10:07)
[2017-12-24] MEDS: 0.9% NaCl Peripheral Flush Adult/Peds IV (10:13)
[2017-12-24] MEDS: Insulin Lispro 100 UNIT/ML INSULN.PEN SC (11:08)
[2017-12-24 11:21] LABS: Bedside Glucose 151 mg/dL (70-110)
--- NOTE | 2017-12-24 11:31 | PN_ITS ---
Patient Problems: Active and Suspected Problems STEMI (ST elevation myocardial infarction) (Acute) Subjective: Patient was seen and examined. Denies any more chest pain. No acute events on telemetry. Vitals/I&O's: Vital Signs Temp Pulse Resp BP Pulse Ox 98.4 F 64 16 122/74 H 97 12/24/17 02:00 12/24/17 11:00 12/24/17 11:00 12/24/17 11:00 12/24/17 11:00 Oxygen Flow Rate (L/min) 2 Oxygen Delivery Method Room Air Weight: 84.7 kg Body Mass Index (BMI) 28.2 Intake and Output for Last 24 Hours 12/22/17 12/23/17 12/24/17 23:59 23:59 23:59 Intake Total 1423 / 1423 Output Total 1150 / 1150 500 / 500 Balance 273 / 273 -500 / -500 General: Alert, Oriented x3, Cooperative, No apparent distress HEENT: Atraumatic, PERRLA, EOMI, Normocephalic Oral: Moist Mucosa Neck: Supple, No JVD, Negative Carotid Bruits Lungs: Clear to auscultation, Normal air movement Cardiovascular: Regular rate, Regular Rhythm, Normal S1, Normal S2, No murmurs Abdomen: Bowel Sounds Present, Soft, Non Tender, Non-Distended, No Hepato- splenomegaly Extremities: No edema Skin: No rashes, No breakdown Musculoskeletal: No Tenderness to Palpation of Joints or Extremities Lymphatic: No Cervical, Supraclavicular, or Inguinal Adenopathy Neurological: Cranial nerves II-XII grossly intact, Neuro grossly intact Psych/Mental Status: Normal Affect, Appropriate Laboratory Results 12/23/17 12:50: Troponin I 2.950 H* 12/23/17 15:45: Troponin I 4.760 H* 12/23/17 17:02: POC Glucose 120 H 12/23/17 22:00: POC Glucose 164 H 12/24/17 05:35: WBC 7.2, RBC 4.17 L, Hgb 12.7 L, Hct 38.0 L, MCV 91.1, MCH 30.5, MCHC 33.4, RDW 13.8, RDW Differential 45.4 H, Plt Count 141 L, MPV 10.6 12/24/17 05:35: Sodium 143, Potassium 3.3 L, Chloride 107, Carbon Dioxide 26.0, Anion Gap 10, BUN 13, Creatinine 1.02, Estim Creat Clear Calc 69.85, Est GFR (MDRD) Af Amer 94, Est GFR (MDRD) Non-Af 78, BUN/Creatinine Ratio 12.7, Glucose 108 H, Calcium 8.2 L, Triglycerides 125, Cholesterol 99, LDL Cholesterol 50, VLDL Cholesterol 25, HDL Cholesterol 24 L 12/24/17 08:31: POC Glucose 98 12/24/17 11:07: POC Glucose 151 H Current Medications Acetaminophen (Tylenol) 650 mg PO Q6H PRN PRN PRN Reason: Mild Pain (0-2/10) Hydrocodone Bitart/Acetaminophen ([place] 5mg-325mg) 1 - 2 tablet PO Q6H PRN PRN PRN Reason: Moderate-severe pain Al Hydroxide/Mg Hydroxide (Mylanta Ii) 30 ml PO Q6H PRN PRN PRN Reason: Gastric burning Aspirin (Ecotrin) 81 mg PO DAILY@0800 [facility] Last Admin: 12/24/17 08:33 Dose: 81 mg Atorvastatin Calcium (Lipitor) 80 mg PO QHS [facility] Last Admin: 12/23/17 22:01 Dose: 80 mg Atropine Sulfate () 0.5 mg IV UD PRN PRN Reason: HR <50 bpm Carvedilol (Coreg) 3.125 mg PO BID [facility] Last Admin: 12/24/17 10:06 Dose: 3.125 mg Chlorthalidone (Hygroton) 25 mg PO DAILY [facility] Last Admin: 12/24/17 10:07 Dose: 25 mg Clopidogrel Bisulfate (Plavix) 75 mg PO BID [facility] Last Admin: 12/24/17 10:07 Dose: 75 mg Diazepam (Valium) 5 mg PO Q6H PRN PRN PRN Reason: BACK SPASMS/ANXIETY Enoxaparin Sodium (Lovenox) 40 mg SC DAILY@0600 [facility] Last Admin: 12/24/17 05:34 Dose: 40 mg Heparin Sodium (Beef Lung) (Heparin 500 Unit/5 Ml (100/Ml)) 500 unit IV UD PRN PRN Reason: HEPARIN FLUSH Hydralazine HCl (Apresoline Iv) 10 mg IV Q4H PRN PRN PRN Reason: SBP > 160 Norepinephrine Bitartrate 8 mg (/ Dextrose) 258 mls @ 4.84 mls/hr IV .[id number] [facility] Last Admin: 12/23/17 10:27 Dose: Not Given Insulin Human Lispro (Humalog Kwikpen (Bkc)) 0 unit SC ACHS [facility]; Protocol Last Admin: 12/24/17 11:08 Dose: 1 units Labetalol HCl (Trandate) 5 mg IV X1 PRN PRN Reason: SBP >160 WHEN PULLING SHEATH Lactobacillus Acidophilus (Acidophilus) 1 tablet PO DAILY [facility] Last Admin: 12/24/17 10:07 Dose: 1 tablet Losartan Potassium (Cozaar) 25 mg PO DAILY [facility] Last Admin: 12/24/17 10:07 Dose: 25 mg Magnesium Hydroxide (Milk Of Magnesia) 30 ml PO DAILY PRN PRN PRN Reason: Constipation Metoclopramide HCl (Reglan) 5 mg IV Q6 PRN PRN Reason: NAUSEA/VOMITING Morphine Sulfate () 1 - 2 mg IV Q4H PRN PRN PRN Reason: PAIN Morphine Sulfate () 2 mg IV Q4H PRN PRN PRN Reason: Mild back pain (0-2/10) Nitroglycerin (Nitrostat) 0.4 mg SUBLINGUAL Q5M PRN PRN Reason: Angina pain Ondansetron HCl (Zofran) 4 mg IV Q8H PRN PRN PRN Reason: NAUSEA Pantoprazole Sodium (Protonix) 20 mg PO DAILY [facility] Last Admin: 12/24/17 10:07 Dose: 20 mg Promethazine HCl (Phenergan) 12.5 mg IV Q6H PRN PRN PRN Reason: NAUSEA/VOMITING Psyllium Hydrophilic Mucilloid (Metamucil) 1 packet PO DAILY [facility] Last Admin: 12/24/17 10:07 Dose: 1 packet Sodium Chloride () 500 ml IV BOLUS PRN PRN Reason: VASO-VAGAL PROTOCOL Sodium Chloride () 5 - 30 ml IV UD PRN PRN Reason: SALINE FLUSH Last Admin: 12/24/17 10:13 Dose: 20 ml Medical Necessity - Tobacco Use Smoking Status: Never smoker Tobacco Use: Non-smoker Assessment/Plan All Active Problems STEMI (ST elevation myocardial infarction) (Acute) 67-year-old male with past medical history of CAD status post 6 stents, hypertension, type II DM, GERD, 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 Unstable angina/acute inferior wall HI, ENA score, status post cardiac cath, 2 stents to RCA Cardiac cath findings showed significant in-stent restenosis or thrombosis to his mid RCA, status post stents, unable to cannulate to the PDA on aspirin, Plavix, beta-daniela, losartan, cardiology on board, follow-up with recommendation, Per cardiology note, requires PCI of the PAD in 4 weeks 2. Hypertension, controlled, now relative hypotension, on Coreg, chlorthalidone, losartan, will continue to monitor, may decrease chlorthalidone dose to 12.5 mg p.o. daily if blood pressure continues to be low 3. Hyperlipidemia, on atorvastatin 80mg daily 4. Hypokalemia, replaced, BMP in a.m. 5. GERD, on PPI 6. DVT prophylaxis with Lovenox subcu Code Visit Inpatient E&M: 98484 Subs Hosp L2
[2017-12-24 16:46] LABS: Bedside Glucose 129 mg/dL (70-110)
[2017-12-24] MEDS: Insulin Human 75/25 Kwickpen 15 UNIT SC (22:09)
[2017-12-24 22:11] LABS: Bedside Glucose 156 mg/dL (70-110)
[2017-12-24] MEDS: Atorvastatin Calcium 80 MG Tablet PO (22:33)
[2017-12-25 03:22] VITALS: PULSE 58
[2017-12-25 03:47] VITALS: BP 108/60; PULSE 62; RESP 18; TEMP 36.7; O2SAT 95
[2017-12-25] MEDS: Enoxaparin 40 MG/0.4 ML Syringe SC (05:20)
[2017-12-25 06:55] LABS: Bedside Glucose 113 mg/dL (70-110)
[2017-12-25 07:02] LABS: Anion Gap 8 (5-15); BUN 12 mg/dL (7-18); BUN/Creat Ratio 12.2 RATIO (10-20); Calcium,Total 8.6 mg/dL (8.5-10.1); Chloride 108 mmol/L (98-107); Creatinine, Serum 0.99 mg/dL (0.70-1.30); EST Glomerular Filtration Rate 81 mL/min (>60); Est Glom Filt Rate - Afr Amer 98 mL/min (>60); Estimated Creatinine Clearance 71.97 ml/min; Glucose 101 mg/dL (74-106); Potassium 3.6 mmol/L (3.5-5.1); Sodium Level 142 mmol/L (136-145)
[2017-12-25 07:30] VITALS: PULSE 57
[2017-12-25] MEDS: Aspirin E.C. 81 MG Tablet PO (09:19)
[2017-12-25] MEDS: Carvedilol 3.125 MG TABLET PO (09:20)
[2017-12-25] MEDS: Losartan Potassium 25 MG Tablet PO (09:20)
[2017-12-25] MEDS: Pantoprazole Sodium 20 MG Tablet PO (09:21)
[2017-12-25] MEDS: Clopidogrel Bisulfate 75 MG Tablet PO (09:21)
[2017-12-25] MEDS: Chlorthalidone 50 MG Tablet 12.5 MG PO (09:21)
[2017-12-25 09:45] VITALS: BP 127/68; PULSE 72; RESP 16; TEMP 36.6; O2SAT 97
--- NOTE | 2017-12-25 10:00 | EKG12_ITS ---
Test Reason : AM Blood Pressure : / mmHG Vent. Rate : 066 BPM Atrial Rate : 066 BPM P-R Int : 162 ms QRS Dur : 080 ms QT Int : 468 ms P-R-T Axes : 056 012 -50 degrees QTc Int : 490 ms Sinus rhythm with frequent Premature ventricular complexes Low voltage QRS T wave abnormality, consider inferior ischemia Abnormal ECG When compared with ECG of 23-DEC-2017 05:51, Significant changes have occurred Confirmed by MORE BOLIVAR, CHARLIE ([id number]), associate entertainment editor DUTCH JOHNSON ([id number]) on 01/01/2018 2:35:14 PM Referred By: Tyler Sena Confirmed By:CHARLIE AGUERO MD
[2017-12-25 10:59] VITALS: PULSE 78
[2017-12-25] MEDS: Insulin Human 75/25 Kwickpen 15 UNIT SC (11:25)
--- NOTE | 2017-12-25 11:29 | DCINST_ITS ---
- Discharge Diagnoses Current Active Problems: Current Active and Chronic Problems STEMI (ST elevation myocardial infarction) (Acute) HTN (hypertension) (Chronic) HLD (hyperlipidemia) (Chronic) CAD (coronary artery disease) (Chronic) Diabetes mellitus, type II (Chronic) GERD (gastroesophageal reflux disease) (Chronic) Reason(s) for Visit for Discharge Instructions: Chest pain You will use the following diet at home:: Cardiac Your food should be the consistency of: Regular Your liquids should be the consistency of: Regular/Thin Discharge Activity: Return to Normal Activity Additional Instructions: Continue on all your medications. Follow-up closely with cardiology and cardiac rehab. Allergies/Adverse Reactions: Allergies lisinopril Allergy (Verified 12/23/17 05:41) COUGH Medications to take at Discharge Aspirin E.C. [Ecotrin] 81 mg PO DAILY@0800 12/23/17 Atorvastatin Calcium [Lipitor] 80 mg PO QHS 12/23/17 Clopidogrel Bisulfate [Plavix] 75 mg PO DAILY 12/23/17 Lactobacillus Acidophilus [Acidophilus] 1 capsule PO DAILY 12/23/17 Lansoprazole 15 mg PO DAILY 12/23/17 Psyllium [Metamucil] 1 packet PO DAILY 12/23/17 Insulin NPH Hum/Reg Insulin Hm [Novolin 70-30 100 Unit/ml Vial] 15 unit SQ ACHS 12/24/17 Acetaminophen [Tylenol Tablet] 650 mg PO Q6H PRN PRN tablet 12/25/17 Carvedilol [Coreg (Beta Kaz)] 3.125 mg PO BID #60 tablet 12/25/17 Chlorthalidone [Hygroton] 12.5 mg PO DAILY #30 tablet 12/25/17 Clopidogrel Bisulfate [Plavix] 75 mg PO BID #30 tablet 12/25/17 Nitroglycerin [Nitrostat] 0.4 mg SUBLINGUAL Q5M PRN #10 tablet 12/25/17 The following prescriptions were given: Chlorthalidone [Hygroton] 12.5 mg PO DAILY #30 tablet Nitroglycerin [Nitrostat] 0.4 mg SUBLINGUAL Q5M PRN #10 tablet PRN Reason: Angina pain Carvedilol [Coreg (Beta Kaz)] 3.125 mg PO BID #60 tablet Clopidogrel Bisulfate [Plavix] 75 mg PO BID #30 tablet Primary Care Physician: Miguel Love MD [Primary Care Provider] - Please follow up with your Primary Care Physician in: within 2 weeks Test Results: Test results from this visit will be discussed in further detail at your follow- up appointment, if applicable. Please Follow Up With: Tyler Sena MD When: in 2 weeks Proposed Discharge Date: 12/25/17
[2017-12-25 11:36] LABS: Bedside Glucose 218 mg/dL (70-110)
--- NOTE | 2017-12-25 11:36 | PCM.DC.SUM ---
Discharge Date and Diagnosis - Problem List Patient Problems: Active and Suspected Problems STEMI (ST elevation myocardial infarction) (Acute) Date of Admission: 12/23/17 Date of Discharge: 12/25/17 - Primary Discharge Diagnosis Active and Suspected Problems Unstable angina Acute inferior wall ND - Secondary Discharge Diagnosis Chronic Problems HTN (hypertension) (Chronic) HLD (hyperlipidemia) (Chronic) CAD (coronary artery disease) (Chronic) Diabetes mellitus, type II (Chronic) GERD (gastroesophageal reflux disease) (Chronic) Hospital Course and Treatment Imaging Results: Clinical Impression(s) from Imaging Studies Chest X-Ray 12/23/17 05:50 IMPRESSION: Normal x-ray examination of the chest. 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 Patient was sent to cardiac cath from the ED. Cath findings showed significant in-stent restenosis or thrombosis to his mid RCA, status post stents, unable to cannulate to the PDA. There is a plan to do PCI of the PDA in 4 weeks. He was managed on aspirin, Plavix, beta-kaz, losartan. His BP was relatively low, his chlorthalidone dose was decreased to 12.5 mg p.o. daily. He had hypokalemia, which was replaced. Patient Problems: Active and Suspected Problems STEMI (ST elevation myocardial infarction) (Acute) Subjective: On the day of discharge, patient was seen walking around the nurses unit. He was asymptomatic. Denies chest pain no dizziness or palpitation. Objective: Physical exam: General: Alert, Oriented x3, Cooperative, No apparent distress HEENT: Atraumatic, PERRLA, EOMI, Normocephalic Oral: Moist Mucosa Neck: Supple, No JVD, Negative Carotid Bruits Lungs: Clear to auscultation, Normal air movement Cardiovascular: Regular rate, Regular Rhythm, Normal S1, Normal S2, No murmurs Abdomen: Bowel Sounds Present, Soft, Non Tender, Non-Distended, No Hepato-splenomegaly Extremities: No edema Skin: No rashes, No breakdown Musculoskeletal: No Tenderness to Palpation of Joints or Extremities Lymphatic: No Cervical, Supraclavicular, or Inguinal Adenopathy Neurological: Cranial nerves II-XII grossly intact, Neuro grossly intact Psych/Mental Status: Normal Affect, Appropriate - Physical Exam Vital Signs Temp Pulse Resp BP Pulse Ox 97.9 F 72 16 127/68 H 97 12/25/17 09:45 12/25/17 09:45 12/25/17 09:45 12/25/17 09:45 12/25/17 09:45 Oxygen Flow Rate (L/min) 2 Oxygen Delivery Method Room Air Weight: 80.9 kg Body Mass Index (BMI) 28.2 Intake and Output for Last 24 Hours 12/23/17 12/24/17 12/25/17 23:59 23:59 23:59 Intake Total 1423 / 1423 900 / 900 720 / 720 Output Total 1150 / 1150 900 / 900 Balance 273 / 273 0 / 0 720 / 720 Laboratory Tests Past 24 Hrs 12/25/17 06:10 Sodium 142 Potassium 3.6 Chloride 108 H Carbon Dioxide 26.0 Anion Gap 8 BUN 12 Creatinine 0.99 Estim Creat Clear Calc 71.97 Est GFR (MDRD) Af Amer 98 Est GFR (MDRD) Non-Af 81 BUN/Creatinine Ratio 12.2 Glucose 101 Calcium 8.6 POC Glucose 12/25/17 12/25/17 12/24/17 11:22 06:52 20:39 POC Glucose 218 H 113 H 156 H 12/24/17 16:24 POC Glucose 129 H Discharge Diet: Low fat/ Low Cholesterol, 2000 mg Sodium Diet Discharge Activity: Return to Normal Activity Home Medications: Medications to take at Discharge Aspirin E.C. [Ecotrin] 81 mg PO DAILY@0800 12/23/17 Atorvastatin Calcium [Lipitor] 80 mg PO QHS 12/23/17 Clopidogrel Bisulfate [Plavix] 75 mg PO DAILY 12/23/17 Lactobacillus Acidophilus [Acidophilus] 1 capsule PO DAILY 12/23/17 Lansoprazole 15 mg PO DAILY 12/23/17 Psyllium [Metamucil] 1 packet PO DAILY 12/23/17 Insulin NPH Hum/Reg Insulin Hm [Novolin 70-30 100 Unit/ml Vial] 15 unit SQ ACHS 12/24/17 Acetaminophen [Tylenol Tablet] 650 mg PO Q6H PRN PRN tablet 12/25/17 Carvedilol [Coreg (Beta Kaz)] 3.125 mg PO BID #60 tablet 12/25/17 Chlorthalidone [Hygroton] 12.5 mg PO DAILY #30 tablet 12/25/17 Clopidogrel Bisulfate [Plavix] 75 mg PO BID #30 tablet 12/25/17 Nitroglycerin [Nitrostat] 0.4 mg SUBLINGUAL Q5M PRN #10 tablet 12/25/17 Following Prescrptions Were Given to Patient: Chlorthalidone [Hygroton] 12.5 mg PO DAILY #30 tablet Nitroglycerin [Nitrostat] 0.4 mg SUBLINGUAL Q5M PRN #10 tablet PRN Reason: Angina pain Carvedilol [Coreg (Beta Kaz)] 3.125 mg PO BID #60 tablet Clopidogrel Bisulfate [Plavix] 75 mg PO BID #30 tablet Primary Care Physician: Miguel Love MD [Primary Care Provider] - Please follow up with your Primary Care Physician in: within 2 weeks Please Follow Up With: Tyler Sena MD When: in 2 weeks Disposition: Home Minutes spent on discharge:: 40 Patient Condition:: Stable Medical Necessity - Tobacco Use Smoking Status: Never smoker Tobacco Use: Non-smoker Meaningful Use Info Meaningful Use Diagnoses (Choose all that apply): AMI - AMI Aspirin given w/in 24hrs of arrival?: Yes ASA at discharge?: Yes Statins at discharge?: Yes Luan/ARB at discharge?: Yes Beta Kaz at discharge?: Yes Done w/ Acute ND measure.: Yes
--- NOTE | 2017-12-25 13:35 | PCM.PN.CARD ---
Subjectve: Patient doing very well this morning, no 24-hour events. Telemetry negative. Right groin is clean/dry/intact. Hemoglobin and creatinine within normal limits. Objective: Vital Signs Temp Pulse Resp BP Pulse Ox 97.9 F 78 16 127/68 H 97 12/25/17 09:45 12/25/17 10:59 12/25/17 09:45 12/25/17 09:45 12/25/17 09:45 Oxygen Flow Rate (L/min) 2 Oxygen Delivery Method Room Air Weight: 178 lb 5.663 oz Body Mass Index (BMI) 28.2 Intake and Output for Last 24 Hours 12/23/17 12/24/17 12/25/17 23:59 23:59 23:59 Intake Total 1423 / 1423 900 / 900 720 / 720 Output Total 1150 / 1150 900 / 900 Balance 273 / 273 0 / 0 720 / 720 General: Awake, Alert, Oriented x 3 HEENT: PERRL, EOMI, Sclera Non Icteric Neck: Supple, Good ROM, No Lymph Node Enlargement Lungs: Clear to auscultation Cardiovascular: Regular Rhythm, Normal S1, Normal S2, No Murmurs, No Rubs, No Gallops Vascular: No Carotid Bruits, Normal Femoral Pulses, Normal Radial Pulses, Normal Dorsalis Pedal Pulse, Normal Posterior Tibial Pulses Abdomen: Bowel Sounds Present, Soft, Non Tender, No HSM, No Organomegaly Extremities: No Cyanosis, No Clubbing, No edema Neurological: No Focal Motor or Sensory Deficit 12/25/17 06:10: Sodium 142, Potassium 3.6, Chloride 108 H, Carbon Dioxide 26.0, Anion Gap 8, BUN 12, Creatinine 0.99, Est GFR (MDRD) Af Amer 98, Est GFR (MDRD) Non-Af 81, BUN/Creatinine Ratio 12.2, Glucose 101, Calcium 8.6 Rhythm: EKG: ECHO: Stress Test: Cardiac Cath: PCI: CT Surgery: Holter monitor: EPS: PPM: CXR: Chest CT Scan: Medical Necessity - Tobacco Use Smoking Status: Never smoker Tobacco Use: Non-smoker Assessment/Plan 1. Coronary artery disease: The patient presented with acute inferior wall myocardial infarction for significant in-stent restenosis/thrombosis of his mid RCA. Patient underwent successful angioplasty and drug-eluting stenting to the mid RCA with an excellent result. We attempted to gain access to the ostial portion of the PDA but were unable to pass a wire due to the angle and tortuosity of the RCA. As the patient's symptoms had resolved as well as his ST segment changes, we elected to leave this for a later day electively in about 4 weeks time. In the meantime the patient will continue baby aspirin, Plavix, beta-blockers, and losartan. He will return in 4 weeks time for elective PCI of the PDA. His left circumflex and LAD stents had minimal nonobstructive disease and did not require any further intervention. Echo showed intact LV function, no pericardial effusion.. His peak troponin thus far is 4.7. 2. Hyperlipidemia: Continue aggressive LDL reduction. Continue Lipitor therapy. 3. Patient will continue in ICU and may proceed to stepdown if indicated or necessary, and may be discharged home today. Code Visit Inpatient E&M: 76254 Subs Hosp L2
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
== END 2017-12-25 14:40 | disposition home or self-care (01) | DRG 247 ==
LOC: ED 05:56 → ICU 06:15 → PCU 12-24 14:18
PROVIDERS: Admitting Provider Family Medicine; Emergency Provider Emergency Medicine; Family Provider Family Medicine; PCP Family Medicine; Referring Provider Internal Medicine Cardiovascular Disease; Visit Provider Internal Medicine
DX: I21.19 ST elevation (STEMI) myocardial infarction involving other coronary artery of inferior wall (principal); T82.855A Stenosis of coronary artery stent, initial encounter; I25.110 Atherosclerotic heart disease of native coronary artery with unstable angina pectoris; E78.5 Hyperlipidemia, unspecified; K21.9 Gastro-esophageal reflux disease without esophagitis; I10 Essential (primary) hypertension; E11.9 Type 2 diabetes mellitus without complications; Z79.4 Long term (current) use of insulin; Z95.5 Presence of coronary angioplasty implant and graft; E87.6 Hypokalemia; I25.2 Old myocardial infarction
CPT/HCPCS: 36415; 71045; 80048; 80061; 82962; 83036; 83735; 84484; 85025; 85027; 85347; 85610; 85730; 92941; 93005; 93306; 93458; 97802; 99285; J7030; J7040; J7050; A4216; C1725; C1769; C1874; C1887; C1894; C9606; Q9967

== ENCOUNTER 2018-01-06 09:59 | Outpatient (RCR) | payer MEDICARE, OTHER, SELFPAY | END 2018-01-24 23:59 | LOC: DC 09:59 | PROVIDERS: Family Provider Family Medicine; PCP Family Medicine | DX: E11.65 Type 2 diabetes mellitus with hyperglycemia (principal); Z71.3 Dietary counseling and surveillance | CPT/HCPCS: 97802 ==

== ENCOUNTER → 2018-01-09 10:25 | Outpatient (CLI) | payer MEDICARE, OTHER, SELFPAY ==
--- NOTE | 2018-01-09 11:47 | PCM.CR.ITP ---
General Information - General Information Admitting Diagnosis: STEMI w/ coronary artery stent placement - Education/Goals Barriers to Learning: Vision Impairment Individual Counseling: Initial Assessment: Abnormal Cholesterol Levels, Overweight/Obesity, Hypertension Cardiac Rehabilitation Goals: 1. Maintain the individual as the primary focus of care. 2. To improve the patient's quality of life. 3. Identification of cardiac risk factors and provide cardiac risk factor management. 4. Enhance the psychosocial status of the patient. 5. Reconditioning enough to allow the patient to resume customary activities. 6. Control symptoms of cardiac disease Scale for measuring improvement of personal goals: Enter appropriate number in Comments. 2 = Unchanged. 3 = Slightly Better. 4 = Moderate Improvement. 5 = Met my Goal Personal Goals: Initial Assessment: Improve energy level, Improve knowledge of cardiac disease, Improve muscle strength and endurance, Improve diet and eating habits (eat healthier), Control risk factors (learn risk factor modification) Exercise - Initial Assessment - Visit Date of Eval: 01/09/18 - Starting CR on Feb 10, 2018 due to additional stent scheduled on 01/22/18 Session #:: 0 - Stages of Change Stages of Change:: Action - Exercise Prescription Mode:: Treadmill, Rower, Airdyne, NuStep Angina with exercise?: No - Hypertension Do any of the following apply?: Yes - Intervention Home Exercise/Activity Goal:: Sitting Time <3 hrs/day - Education Goals:: Warm-up, RPE YOLETTE Scale, S/S, Safe Exercise, Self-Monitoring - Exercise Program Goals Exercise Program Goals: Aerobic Activity >30 min Nutrition - Initial Assessment - Program Goals Nutrition Program Goals: LDL <70. Total Cholesterol <200. HDL >45. Triglycerides <150. HgbA1C <7%. BMI <25 - Visit Date of Assessment:: 01/09/18 - Stages of Change Stages of Change:: Action - Diabetes Diabetes:: Yes Insulin: Yes Do you monitor your blood sugar at home?: Yes - Weight Management Height: 5 ft 8 in Weight:: 178 lb 12.8 oz Body Fat %:: 28.2 - Intervention Referral to dietitian:: Yes - [place] could benefit from Diabetic Education & Training Referral to Diabetic Clinic:: Yes Will attend diet classes:: Yes - Education Gave educational materials for:: Signs & symptoms of hypoglycemia, Signs & symptoms of hyperglycemia, Relate diabetes to coronary artery disease, Healthy eating Tobacco - Initial Assessment - Program Goals Tobacco Program Goals: Complete smoking cessation. Attend education classes. Improve Knowledge Test score - Stage of Change Stages of Change:: Action - Learning Barriers Learning Barriers: Vision, Ready to Learn - Family Support Do you have family support?: Yes - Tobacco Use Tobacco Use: Non-smoker - Intervention Smoking Cessation Referral:: No Education Schedule Given:: Yes - Education Gave educational material for:: Coronary artery disease, Risk factors, Sexuality, Medical compliance, Cardiac A&P, Angina signs & symptoms Psychosocial - Initial Assess - Target Goals Target Goals: Assess presence or absence of depression. Using a valid screening tool, maximizes coping skills. Positive support system - Stages of Change Stages of Change:: Action - Psychosocial Test Tool Used:: HANDS Depression Questionnaire - Intervention PS - Interventions: Yes Attend Stress Management Classes, No Referral to Mental Health, No Referral to [facility] Case Management, No Referral to Physician, No Uses Stress Management Skills - Education Gave educational materials for:: Coping techniques, Signs & symptoms of depression, Stress management, Relaxation techniques - Patient/Program Goal Preventative Medication(s):: Aspirin, Clopidogrel, Beta daniela, Statin/lipid - Assistive Devices Assistive Devices:: None Fall Risk Assessed:: Yes Patient Health Questionnaire Initial Assessment 1. Little interest or pleasure in doing things: Not at all 2. Feeling down, depressed, or hopeless: Not at all 3. Trouble falling or staying asleep, or sleeping too much: Nearly every day 4. Feeling tired or having little energy: Nearly every day 5. Poor appetite or overeating: Not at all 6. Feeling bad about yourself -- or that you are a failure or have let yourself or your family down: Not at all 7. Trouble concentrating on things, such as reading the newspaper or watching television: Not at all 8. Moving or speaking so slowly that other people could have noticed. Or the opposite - being so fidgety or restless that you have been moving around a lot more than usual: Not at all 9. Thoughts that you would be better off , or of hurting yourself in some way: Not at all How difficult have these problems made it for you to do your work, take care of things at home, or get along with other people?: Not difficult at all Total Score: 6 JEANETTE-Q SV Test - Statements CAD is a disease of the arteries in the heart: False Examples of risk factors for heart disease: True Angina is chest pain or discomfort: I Don't Know The benefits of resistance training include: True Eating more meat and dairy products: False Anti-platelet medications such as aspirin are important: True The only effective way to manage stress: False An exercise warm-up slowly increases heart rate: True Prepared, processed foods usually have high sodium: True Depression is common after a heart attack: I Don't Know The statin medications lower cholesterol: True To control blood pressure, lower the amount of sodium: True If someone gets chest discomfort during walking: False Transfats are partially hydrogenated vegetable oils: I Don't Know Sleep apnea that is not treated increases the risk: False To control cholesterol, one should become a vegetarian: False Someone knows if he/she is exercising at the right level: I Don't Know Diabetes cannot be prevented with exercise & health eating: False Stress is a large risk for heart attack: True A diet that can help lower blood pressure is rich in: True - Total Score Total Correct Responses: 16 Self-Efficacy Initial Assessment We would like to know how confident you are in doing certain activities. Please select your confidence level for:: Select your confidence level for the following using the scale 1-10 where 1 is not at all confident and 10 is totally confident. Your score is the average of all 6 responses. Fatigue: How confident are you that you can keep the fatigue caused by your disease from interfering with the things you want to do? Select Number: 8 Physical Discomfort or Pain: How confident are you that you can keep the physical discomfort or pain of your disease from interfering with the things you want to do? Select Number: 8 Emotional Distress: How confident are you that you can keep the emotional distress caused by your disease from interfering with the things you want to do? Select Number: 8 Other Symptoms or Health Problems: How confident are you that you can keep other symptoms or health problems from interfering with the things you want to do? Select Number: 5 Different Tasks and Activities: How confident are you that you can do the different tasks and activities needed to manage your health condition so as to reduce your need to see a doctor? Select Number: 8 Medication: How confident are you that you can do things other than just taking medication to reduce how much your illness affects your everyday life? Select Number: 10 Total Score:: 7 Nutrition Survey - Nutrition Survey Instructions Scoring Instructions: Scoring is as follows: Yes = 1 points. No = 0 point. Patient score that is >/=12 is considered to be at potential nutritional risk and could benefit from a referral to a registered dietitian. - Nutrition Survey Initial Have you lost >10 lbs over the past 2 months without trying?: No Are you following a special diet at home for diabetes, low fat, or low salt?: Yes Are you interested in meeting with a dietitian for help understanding your diet?: Yes Do you eat less than 3 meals a day?: No Do you eat fatty meats (garzon, sausage, ribs, etc), fried foods, desserts, large amounts of salad dressings, margarine, butter, or cheese most days?: Yes Do you have food allergies? [Enter types in comment field]: No Do you eat in restaurants more than 3 times a week?: No Do you season food with salt, seasoning salt, or garlic salt?: Yes Do you used canned, boxed, frozen meals, or soups, seasoning packets?: Yes Total Score:: 5
--- NOTE | 2018-01-09 11:57 | PCM.CR.HP2 ---
CR - History & Physical - General Arrival date:: 01/09/18 Arrival time:: 11:57 Date of Referral:: 01/09/18 Date of CR Evaluation:: 01/09/18 Referring Physician: Dr. Forest Sena Primary Diagnosis: STEMI with stent - History of Present Cardiac Event Onset Date: Enter Onset Date of cardiac illnesses in Comment field below Current stable Angina Pectoris:: No Acute Myocardial Infarction within 12 months:: Yes Coronary Artery Bypass Graft:: No Heart valve replacement or repair:: No PTCA or coronary stenting:: Yes Heart or Heart-Lung Transplant:: No Heart Failure EF <35%:: No Type of Symptoms:: chest pressure, bilateral arm pain/aching. Interventions with present event:: needs a stent on 01/22, had 2 stents with this event. Were there any complications?: no - Medications Home Medications: Ambulatory Orders Medication Instructions Recorded Aspirin E.C. [Ecotrin] 81 mg PO DAILY@0800 12/23/17 Atorvastatin Calcium [Lipitor] 80 mg PO QHS 12/23/17 Lactobacillus Acidophilus 1 cap PO DAILY 12/23/17 [Acidophilus] Lansoprazole 15 mg PO DAILY 12/23/17 Psyllium [Metamucil] 1 packet PO DAILY 12/23/17 Insulin NPH Hum/Reg Insulin Hm 15 unit SQ ACHS 12/24/17 [Novolin 70-30 100 Unit/ml Vial] Acetaminophen [Tylenol Tablet] 650 mg PO Q6H PRN PRN tab 12/25/17 Carvedilol [Coreg (Beta Kaz)] 3.125 mg PO BID #60 tab 12/25/17 Chlorthalidone [Hygroton] 12.5 mg PO DAILY #30 tab 12/25/17 Clopidogrel Bisulfate [Plavix] 75 mg PO BID #30 tab 12/25/17 Nitroglycerin [Nitrostat] 0.4 mg SUBLINGUAL Q5M PRN #10 tab 12/25/17 clopidogrel 75 mg tablet 75 mg PO DAILY 01/08/18 - Allergies Allergies/Adverse Reactions: Allergies lisinopril Adverse Reaction (Intermediate, Verified 01/08/18 14:53) COUGH - Sleep Disorder Evaluation Hx of Sleep Apnea: No Do you snore loudly (louder than talking or can be heard through closed doors)?: Yes Do you often feel tired/ fatigued/ sleepy during daytime?: Yes Has anyone observed you stop breathing during sleep?: No History of Hypertension (for STOP score): Yes STOP Results: Positive Advanced Directives - Advanced Directives Power of Underwater Welder: No Living Will: No Advance Directives Information Provided: Yes Advance Directives on File: No DNR Order?:: No Past Medical History - Past Medical Illness Medical History: Past Medical History (Last Reviewed 01/08/18 @ 15:04 by Felipa Tee) Atherosclerotic heart disease of [place] coronary artery without angina pectoris (Chronic) Onset Date: 12/23/17 I25.10 LAURA (2.5X20 Promus Synergy) to RCA; pt to have staged procedure for PCI of ostial PDA 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 Social History - Smoking History Smoking Status: Former smoker Hx Smoking Cessation Date: quit 20 years ago - Alcohol Use Alcohol Usage: No - Substance Abuse Hx Substance Use: No - Occupation Occupation (List type of work in comments):: Retired - Hobbies, Recreation, Social Activities Hobbies: Other - bowling Recreational Activities: I am able to engage in all my recreational activities Social Environment - Status Marital Status: - Current Living Arrangements Living Environment:: Alone - Children How many children do you have?: 2 Do any of your children live nearby?: No - Safety Do you feel safe in your surroundings?: Yes - Assistance Do you need any assistance at home?: no Review of Systems - Review of Systems Hints: Right click = Denies (Slash). Left click = Reports ([place]) Review of Present Symptoms: Reports: Shortness of Breath with Exertion, Dizziness/Lightheadedness - due to blood sugars, Fatigue, Appetite - Normal, Appetite - Special Diet - cardiac diabetic, Sleep - Normal - sleeps poorly, no heat, pinched nerve. Denies: Shortness of Breath at Rest, PVD, Operative Discomfort, Angina, Wound Healing, Heart Arrhythmia/Irregularities, Sexual Changes - Pain Is Patient Pain Free?: No Pain Location: back - pinched nerve in back Pain Level: 10 Previous experience dealing with pain?: Tylenol Risk Factor Assessment - Pulse Pulse Rate: 62 Pulse Rhythm: Regular - Hypertension Blood Pressure Sitting - Right Arm: 130/80 Blood Pressure Sitting - Left Arm: 130/80 - Diabetes Diabetic History: Type II Nutrition Referral for Diabetes: Yes - Obesity Height: 5 ft 8 in Weight:: 178 lb 12.8 oz Weight in Pounds: 178.8 lbs Body Mass Index (BMI): 27.1 Desired Body Weight: 158 Realistic Weight Goal (Loss of 1-2 lbs/week): 168 Nutritional Referral for Obesity: Yes - Is is dietary counselling with Evon at [facility] - Physical Inactivity Physical Inactivity: None - Risk Stratification Risk Guidelines: Lowest Risk: Risk Factor for Smoking, Risk Factor for Hypertension, Risk Factor for Depression, Moderate Risk: Risk Factor for Dyslipidemia, Risk Factor for Diabetes, Risk Factor for Obesity, Risk Factor for Sedentary Lifestyle - For Smoking Smoking Risk Guidelines: Smoking Low Risk: None or quit greater than 6 months ago. Smoking Moderate Risk: Smoker or quit 6 months or less ago. Smoking High Risk: Smoker - For Dyslipidemia Dyslipidemia Risk Guidelines: Low Risk: Moderate Risk: High Risk: 15-25% fat 25.1-29% fat >/= 30% fat. <7% sat fat 7-9% sat fat >9% sat fat. <150 mg chol 150-299 mg chol >/= 300 mg chol. LDL <100 LDL 100-129 LDL >/= 130. Chol/HDL ratio <5.0 Chol/HDL ratio 5.0-6.0 Chol/HDL ratio >6.0. Triglycerides <100 Triglycerides 100-149 Triglycerides >/= 150 - For Diabetes Mellitus Diabetes Risk Guidelines: Diabetes Low Risk: HgA1c <6.5% and/or FBG <120. Diabetes Moderate Risk: HgA1c 6.6-7.9% and/or FBG 120-180. Diabetes High Risk: HgA1c >/= 8% and/or FBG >180 - For Obesity/Overweight Obesity/Overweight Risk Guidelines: Obesity Low Risk: BMI <25.0. Obesity Moderate Risk: BMI 25-29.9. Obesity High Risk: BMI >/= 30.0 - For Hypertension Hypertension Risk Guidelines: Hypertension Low Risk: Systolic <120 and Diastolic <80. Hypertension Moderate Risk: Systolic 120-139 and Diastolic 80-89. Hypertension High Risk: Systolic >/= 140 and Diastolic >/= 90 - For Sedentary Lifestyle Sedentary Lifestyle Risk Guidelines: Sedentary Lifestyle Low Risk: >/= 1,500 kcal/week. Sedentary Lifestyle Moderate Risk: 700-1,499 kcal/week. Sedentary Lifestyle High Risk: < 700 kcal/week - For Depression Depression Risk Guidelines: Depression Low Risk: Not clinically depressed. Depression Moderate Risk: Mildly depressed. Depression High Risk: Clinically depressed Motivation - Motivation to Participate On a scale of 1 to 10, how prepared are you to commit to attending program?: 10
--- NOTE | 2018-01-09 12:02 | CR.HP_ITS ---
CR - History & Physical - General Arrival date:: 01/09/18 Arrival time:: 11:57 Date of Referral:: 01/09/18 Date of CR Evaluation:: 01/09/18 Referring Physician: Dr. Forest Sena Primary Diagnosis: STEMI with stent - History of Present Cardiac Event Onset Date: Enter Onset Date of cardiac illnesses in Comment field below Current stable Angina Pectoris:: No Acute Myocardial Infarction within 12 months:: Yes Coronary Artery Bypass Graft:: No Heart valve replacement or repair:: No PTCA or coronary stenting:: Yes Heart or Heart-Lung Transplant:: No Heart Failure EF <35%:: No Type of Symptoms:: chest pressure, bilateral arm pain/aching. Interventions with present event:: needs a stent on 01/22, had 2 stents with this event. Were there any complications?: no - Medications Home Medications: Ambulatory Orders Medication Instructions Recorded Aspirin E.C. [Ecotrin] 81 mg PO DAILY@0800 12/23/17 Atorvastatin Calcium [Lipitor] 80 mg PO QHS 12/23/17 Lactobacillus Acidophilus 1 cap PO DAILY 12/23/17 [Acidophilus] Lansoprazole 15 mg PO DAILY 12/23/17 Psyllium [Metamucil] 1 packet PO DAILY 12/23/17 Insulin NPH Hum/Reg Insulin Hm 15 unit SQ ACHS 12/24/17 [Novolin 70-30 100 Unit/ml Vial] Acetaminophen [Tylenol Tablet] 650 mg PO Q6H PRN PRN tab 12/25/17 Carvedilol [Coreg (Beta Kaz)] 3.125 mg PO BID #60 tab 12/25/17 Chlorthalidone [Hygroton] 12.5 mg PO DAILY #30 tab 12/25/17 Clopidogrel Bisulfate [Plavix] 75 mg PO BID #30 tab 12/25/17 Nitroglycerin [Nitrostat] 0.4 mg SUBLINGUAL Q5M PRN #10 tab 12/25/17 clopidogrel 75 mg tablet 75 mg PO DAILY 01/08/18 - Allergies Allergies/Adverse Reactions: Allergies lisinopril Adverse Reaction (Intermediate, Verified 01/08/18 14:53) COUGH - Sleep Disorder Evaluation Hx of Sleep Apnea: No Do you snore loudly (louder than talking or can be heard through closed doors)?: Yes Do you often feel tired/ fatigued/ sleepy during daytime?: Yes Has anyone observed you stop breathing during sleep?: No History of Hypertension (for STOP score): Yes STOP Results: Positive Advanced Directives - Advanced Directives Power of Customs Entry Writer: No Living Will: No Advance Directives Information Provided: Yes Advance Directives on File: No DNR Order?:: No Past Medical History - Past Medical Illness Medical History: Past Medical History (Last Reviewed 01/08/18 @ 15:04 by Felipa Tee) Atherosclerotic heart disease of [place] coronary artery without angina pectoris (Chronic) Onset Date: 12/23/17 I25.10 LAURA (2.5X20 Promus Synergy) to RCA; pt to have staged procedure for PCI of ostial PDA History of acute inferior wall MO (Chronic) Onset Date: 12/23/17 I25.2 HTN (hypertension) (Chronic) I10 HLD (hyperlipidemia) (Chronic) E78.5 Diabetes mellitus, type II (Chronic) E11.9 GERD (gastroesophageal reflux disease) (Chronic) K21.9 - Past Surgical History Surgical History: Past Surgical History (Last Reviewed 01/08/18 @ 15:04 by Felipa Tee) Stented coronary artery (Chronic) Z95.5 LAURA (2.5X20 Promus Synergy) to RCA; pt to have staged procedure for PCI of ostial PDA Surgical History: - - PCI x 6, appendectomy, eye surgery in youth. Social History - Smoking History Smoking Status: Former smoker Hx Smoking Cessation Date: quit 20 years ago - Alcohol Use Alcohol Usage: No - Substance Abuse Hx Substance Use: No - Occupation Occupation (List type of work in comments):: Retired - Hobbies, Recreation, Social Activities Hobbies: Other - bowling Recreational Activities: I am able to engage in all my recreational activities Social Environment - Status Marital Status: - Current Living Arrangements Living Environment:: Alone - Children How many children do you have?: 2 Do any of your children live nearby?: No - Safety Do you feel safe in your surroundings?: Yes - Assistance Do you need any assistance at home?: no Review of Systems - Review of Systems Hints: Right click = Denies (Slash). Left click = Reports ([place]) Review of Present Symptoms: Reports: Shortness of Breath with Exertion, Dizziness/Lightheadedness - due to blood sugars, Fatigue, Appetite - Normal, Appetite - Special Diet - cardiac diabetic, Sleep - Normal - sleeps poorly, no heat, pinched nerve. Denies: Shortness of Breath at Rest, PVD, Operative Discomfort, Angina, Wound Healing, Heart Arrhythmia/Irregularities, Sexual Changes - Pain Is Patient Pain Free?: No Pain Location: back - pinched nerve in back Pain Level: 10 Previous experience dealing with pain?: Tylenol Risk Factor Assessment - Pulse Pulse Rate: 62 Pulse Rhythm: Regular - Hypertension Blood Pressure Sitting - Right Arm: 130/80 Blood Pressure Sitting - Left Arm: 130/80 - Diabetes Diabetic History: Type II Nutrition Referral for Diabetes: Yes - Obesity Height: 5 ft 8 in Weight:: 178 lb 12.8 oz Weight in Pounds: 178.8 lbs Body Mass Index (BMI): 27.1 Desired Body Weight: 158 Realistic Weight Goal (Loss of 1-2 lbs/week): 168 Nutritional Referral for Obesity: Yes - Is is dietary counselling with Evon at [facility] - Physical Inactivity Physical Inactivity: None - Risk Stratification Risk Guidelines: Lowest Risk: Risk Factor for Smoking, Risk Factor for Hypertension, Risk Factor for Depression, Moderate Risk: Risk Factor for Dyslipidemia, Risk Factor for Diabetes, Risk Factor for Obesity, Risk Factor for Sedentary Lifestyle - For Smoking Smoking Risk Guidelines: Smoking Low Risk: None or quit greater than 6 months ago. Smoking Moderate Risk: Smoker or quit 6 months or less ago. Smoking High Risk: Smoker - For Dyslipidemia Dyslipidemia Risk Guidelines: Low Risk: Moderate Risk: High Risk: 15-25% fat 25.1-29% fat >/= 30% fat. <7% sat fat 7-9% sat fat >9% sat fat. <150 mg chol 150-299 mg chol >/= 300 mg chol. LDL <100 LDL 100-129 LDL >/= 130. Chol/HDL ratio <5.0 Chol/HDL ratio 5.0-6.0 Chol/HDL ratio >6.0. Triglycerides <100 Triglycerides 100- 149 Triglycerides >/= 150 - For Diabetes Mellitus Diabetes Risk Guidelines: Diabetes Low Risk: HgA1c <6.5% and/or FBG <120. Diabetes Moderate Risk: HgA1c 6.6-7.9% and/or FBG 120-180. Diabetes High Risk: HgA1c >/= 8% and/or FBG >180 - For Obesity/Overweight Obesity/Overweight Risk Guidelines: Obesity Low Risk: BMI <25.0. Obesity Moderate Risk: BMI 25-29.9. Obesity High Risk: BMI >/= 30.0 - For Hypertension Hypertension Risk Guidelines: Hypertension Low Risk: Systolic <120 and Diastolic <80. Hypertension Moderate Risk: Systolic 120-139 and Diastolic 80-89. Hypertension High Risk: Systolic >/= 140 and Diastolic >/= 90 - For Sedentary Lifestyle Sedentary Lifestyle Risk Guidelines: Sedentary Lifestyle Low Risk: >/= 1,500 kcal/week. Sedentary Lifestyle Moderate Risk: 700-1,499 kcal/week. Sedentary Lifestyle High Risk: < 700 kcal/week - For Depression Depression Risk Guidelines: Depression Low Risk: Not clinically depressed. Depression Moderate Risk: Mildly depressed. Depression High Risk: Clinically depressed Motivation - Motivation to Participate On a scale of 1 to 10, how prepared are you to commit to attending program?: 10
[2018-01-09 12:47] VITALS: BP 130/80; PULSE 62; BMI 27.1
== END ==
PROVIDERS: Family Provider Family Medicine; PCP Family Medicine; Referring Provider Internal Medicine Cardiovascular Disease; Visit Provider Internal Medicine Cardiovascular Disease
DX: I25.10 Atherosclerotic heart disease of native coronary artery without angina pectoris (principal); E11.9 Type 2 diabetes mellitus without complications; I10 Essential (primary) hypertension; E78.5 Hyperlipidemia, unspecified; K21.9 Gastro-esophageal reflux disease without esophagitis; I25.2 Old myocardial infarction; Z95.5 Presence of coronary angioplasty implant and graft

== ENCOUNTER 2018-01-22 10:06 | Observation (INO) | payer MEDICARE, OTHER, SELFPAY ==
[2018-01-09 15:01] VITALS: BMI 27.6
[2018-01-21 08:18] VITALS: BMI 27.6
[2018-01-22] VITALS (25 sets, daily range): BP systolic 101–124; BP diastolic 59–89; PULSE 51–96; RESP 15–18; TEMP 36.4–37.1; O2SAT 95–100; BMI 26.4
--- NOTE | 2018-01-22 10:25 | CL.I_ITS ---
Patient Name: DOMINGA TREJO Study Date: 01/22/2018 Performing: Tyler Sena MD Ht: 68 inches 173 cm : 1950 Wt: 183.2 lbs 83 kg Age: 67 Gender: male BSA: 1.97 PROCEDURE(S) PERFORMED [id number] W OR WO PTCA, SINGLE CORONARY ARTERY [id number], EACH ADD'L CORONARY ART, SAME MAJOR CLINICAL PROFILE AND CO-MORBIDITIES Indications: New Onset Angina <= 2 months Heart Failure: None Stress/Imaging Stress/Image Study Performed: No Angina Classification Anginal Classification w/in 2 Weeks: CCS III CAD Presentations: Unstable angina. Comorbidities/Risk Factors: Hypertension Dyslipidemia Prior PCI Diabetes Mellitus: Diabetes Therapy: Insulin CONCLUSIONS Successful PTCA/LAURA of distal RCA/proximal PDA with a 2.25 x 12 Promus Synergy at 14 bakari; 85%-->0%, n o dissection. Successful PCI with PTCA to the ostial PL Branch with a 2.0 x 12 Balloon; 75%-->20%, no dissection. Very difficult intervention requiring long 45 cm sheath, double wire technique, multiple balloons and various stents to negotiate previous mid RCA stents and tortuosity. RECOMMENDATIONS Highly recommend quitting all tobacco products Follow up with primary technology sales representative Risk factor modification ASA Indefinitley Plavix for at least 12 months Routine post interventional care Refer for Outpatient Cardiac Rehab Manual sheath removal per protocol Follow up with Dr. Sena DESCRIPTION OF PROCEDURE The patient arrived to the procedure lab. The risks and benefits of the procedure as well as a full d escription of our services here and current unavailability of surgical backup were fully explained to the patient and/or their significant other prior to the catheterization. The Timeout was completed, verifying the correct patient and procedure. The patient's procedural site was prepped and draped in the usual fashion. Local anesthetic was given subcutaneously to right groin region with Lidocaine 2%. Using a modified Seldinger technique, arterial access was obtained via the right femoral artery, a 6 Fr sheath was inserted.. HS2 Guide catheter was inserted and engaged into the RCA. Runthrough Guide wire was advanced to t he Right PDA. Runthrough (2) Guide wire was inserted as a mary wire in the PL branch Emerge 2.0 x 12 Balloon catheter was inserted. Balloon catheter was advanced across lesion in the posterior descendi ng, ostial. Angiogram performed pre balloon dilatation. PTCA balloon inflated at 8 atms for 15 secs. Angiogram performed post balloon dilatation. PTCA balloon inflated at 10 atms for 12 secs. Balloon ca theter was reinserted on mary wire in PL Branch PTCA balloon inflated at 6 atms for 12 secs. Angiogr am performed post balloon dilatation. Synergy 2.5 x 12 Drug Eluting stent was inserted. Drug Eluting stent was advanced across the lesion in the posterior descending, ostial. Drug Eluting stent was roxana veronica intact, failed to cross lesion Elunir 2.5 x 12 Drug Eluting stent was inserted. Drug Eluting sten t was advanced across the lesion in the posterior descending, ostial. Drug Eluting stent was removed intact, failed to cross lesion Runthrough (2) Guide wire was reinserted as a mary wire i n the PL Runthrough (2) Guide wire was repositioned to the Right PDA Synergy 2.25 x 12 Drug Eluting s tent was inserted. Drug Eluting stent was advanced across the lesion in the posterior descending, ost ial. Angiogram performed pre stent deployment. Angiogram performed post stent deployment. The arteri al sheath was sutured in place and capped INTERVENTION INFORMATION LESION SITE: RT PDA (Ostial) Lesion Complexity: High/C, lesion at bifurcation: Yes, thrombus present: No, lesion length: 12 mm, cu lprit lesion: Yes Pre Stenosis: 85 % Pre intervention ENA flow: 3 PROCEDURE: Drug Eluting Stent with pre dilatation. Post Stenosis: 0 % Post intervention ENA flow: 3 Lesion Devices: MyWerxtronic 6 Fr HSII 100cm Guide Catheter Terumo .014 Runthrough Extra Floppy 180cm straight Terumo .014 Runthrough Extra Floppy 180cm straight Pierce Sci EMERGE MR 2.00x12 BALLOON Pierce Sci Synergy MR LAURA 2.50x12 Cardinal Elunir LAURA RX 2.5x12 Pierce Sci Synergy MR LAURA 2.25x12 LESION SITE: RPL (1st) Lesion Complexity: Non-High/Non-C, lesion at bifurcation: Yes, thrombus present: No, lesion length: 8 mm, culprit lesion: No Pre Stenosis: 75 % Pre intervention ENA flow: 3 PROCEDURE: Balloon Angioplasty Balloon Angioplasty Post Stenosis: 20 % Post intervention ENA flow: 3 Lesion Devices: Medtronic 6 Fr HSII 100cm Guide Catheter Terumo .014 Runthrough Extra Floppy 180cm straight Pierce Sci EMERGE MR 2.00x12 BALLOON COMPLICATIONS No Complications PROCEDURE MEDICATIONS Oxygen: 2 L/min via nasal cannula Heparin 6000 unit(s) IV 01/22/2018 09:13:01 Nitro 200 mcg IC 01/22/2018 09:54:02 IV Bolus: .9 NaCl ml total 01/22/2018 09:14:00 SUMMARY OF HEMODYNAMIC DATA Time AIR REST ECG 08:05:18 AO 101/43 (64) SA 09:11:56 Signed By Tyler Sena MD On 01/22/2018 10:24:10 Tyler Sena MD
--- NOTE | 2018-01-22 10:26 | EKG12_ITS ---
Test Reason : POST PCI Blood Pressure : / mmHG Vent. Rate : 049 BPM Atrial Rate : 049 BPM P-R Int : 172 ms QRS Dur : 080 ms QT Int : 466 ms P-R-T Axes : 065 042 -17 degrees QTc Int : 420 ms Sinus bradycardia Low voltage QRS Borderline ECG Confirmed by FILEMON BOLIVAR, MERVAT ([id number]), material expeditor DUTCH JOHNSON ([id number] on 01/28/2018 3:52:26 PM Referred By: Tyler Sena Confirmed By:MERVAT COLBERT MD
--- NOTE | 2018-01-22 10:39 | CRPH1.INSTRU ---
General Education CAD and cardiac anatomy and function:: Patient communicates acknowledgment - pt seen previously. starts rehab 02/10/18.
--- NOTE | 2018-01-22 10:42 | CRPHASE1_ITS ---
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 Starts rehab 02/10/2018
[2018-01-22] MEDS: 0.9% Normal Saline 1,000 ML 150 ML IV (10:55)
[2018-01-22 11:40] LABS: ACT Activated Clotting Time 202 sec (74-137)
[2018-01-22 12:45] LABS: ACT Activated Clotting Time 136 sec (74-137)
[2018-01-22 15:05] LABS: Bedside Glucose 83 mg/dL (70-110)
--- NOTE | 2018-01-22 15:56 | PCM.DC.CCA ---
Discharge Diet: Low fat/ Low Cholesterol Discharge Activity: Return to Normal Activity May shower in (days): 1 May resume sexual activity in: 1-2 weeks Lifting Restrictions: Do not lift anything greater than 10 pounds for 3 days Call your doctor if your incision/area has: Continuous Slow Oozing, Sudden Increased Bleeding, Increased Pain/ Swelling, Increased Redness, Foul Smelling Discharge, Swelling at the incision site Call your doctor if you observe: Fever of 101 or Higher, Shortness of breath, Chest pain Change Dressing in (Days):: 1 Cleanse incision/area with: Soap & Water Additional Instructions: You are scheduled for an office appointment with Dr. Sena on 02/06/2018 at 2 PM. At this time, we will assess her overall progress and evaluate readiness for cardiac rehab. Cardiac rehab may contact you prior to this office appointment. You will continue with aspirin and Plavix therapy. You will remain on your Plavix for a minimum of 1 year. If anyone asks you to stop this medication or discontinue it, please contact the [facility] office first at [phone]. Allergies/Adverse Reactions: Allergies lisinopril Adverse Reaction (Intermediate, Verified 01/09/18 15:03) COUGH Medications to take at Discharge Aspirin E.C. [Ecotrin] 81 mg PO DAILY@0800 12/23/17 Atorvastatin Calcium [Lipitor] 80 mg PO QHS 12/23/17 Lactobacillus Acidophilus [Acidophilus] 1 cap PO DAILY 12/23/17 Lansoprazole 15 mg PO DAILY 12/23/17 Psyllium [Metamucil] 1 packet PO DAILY 12/23/17 Insulin NPH Hum/Reg Insulin Hm [Novolin 70-30 100 Unit/ml Vial] 20 unit SQ BIDCM 12/24/17 Acetaminophen [Tylenol Tablet] 650 mg PO Q6H PRN PRN tab 12/25/17 Carvedilol [Coreg (Beta Kaz)] 3.125 mg PO BID #60 tab 12/25/17 Chlorthalidone [Hygroton] 12.5 mg PO DAILY #30 tab 12/25/17 Nitroglycerin [Nitrostat] 0.4 mg SUBLINGUAL Q5M PRN #10 tab 12/25/17 clopidogrel 75 mg tablet 75 mg PO DAILY 01/08/18 Primary Care Physician: Miguel Love MD [Primary Care Provider] - Test Results: Test results from this visit will be discussed in further detail at your follow-up appointment, if applicable. Please Follow Up With: Dr. Sena When: 02/06/2018 @ 2:00 PM Proposed Discharge Date: 01/23/18 Cardiac Rehabilitation Info Cardiac Rehabilitation Program Information: Cardiac Rehabilitation is important for patients like you who are recovering from a heart problem. Cardiac rehabilitation programs are recognized as integral to the continued care of the patient with coronary heart disease. The cardiac rehabilitation program is designed to optimize a patient's physical, psychological, and social functioning. Health home health care social worker work in cardiac rehabilitation programs and assist you with getting the treatments you need to get stronger and healthier - like exercise, healthy eating habits, and medications. Cardiac rehabilitation has been show to help people with heart problems live longer and have better life enjoyment than people who do not go to cardiac rehabilitation. Please contact the Cardiac Rehabilitation Program at [facility] at in two weeks if you have not heard from them.
--- NOTE | 2018-01-22 16:01 | DCINST_ITS ---
Discharge Diet: Low fat/ Low Cholesterol Discharge Activity: Return to Normal Activity May shower in (days): 1 May resume sexual activity in: 1-2 weeks Lifting Restrictions: Do not lift anything greater than 10 pounds for 3 days Call your doctor if your incision/area has: Continuous Slow Oozing, Sudden Increased Bleeding, Increased Pain/ Swelling, Increased Redness, Foul Smelling Discharge, Swelling at the incision site Call your doctor if you observe: Fever of 101 or Higher, Shortness of breath, Chest pain Change Dressing in (Days):: 1 Cleanse incision/area with: Soap & Water Additional Instructions: You are scheduled for an office appointment with Dr. Sena on 02/06/2018 at 2 PM. At this time, we will assess her overall progress and evaluate readiness for cardiac rehab. Cardiac rehab may contact you prior to this office appointment. You will continue with aspirin and Plavix therapy. You will remain on your Plavix for a minimum of 1 year. If anyone asks you to stop this medication or discontinue it, please contact the [facility] office first at [phone]. Allergies/Adverse Reactions: Allergies lisinopril Adverse Reaction (Intermediate, Verified 01/09/18 15:03) COUGH Medications to take at Discharge Aspirin E.C. [Ecotrin] 81 mg PO DAILY@0800 12/23/17 Atorvastatin Calcium [Lipitor] 80 mg PO QHS 12/23/17 Lactobacillus Acidophilus [Acidophilus] 1 cap PO DAILY 12/23/17 Lansoprazole 15 mg PO DAILY 12/23/17 Psyllium [Metamucil] 1 packet PO DAILY 12/23/17 Insulin NPH Hum/Reg Insulin Hm [Novolin 70-30 100 Unit/ml Vial] 20 unit SQ BIDCM 12/24/17 Acetaminophen [Tylenol Tablet] 650 mg PO Q6H PRN PRN tab 12/25/17 Carvedilol [Coreg (Beta Kaz)] 3.125 mg PO BID #60 tab 12/25/17 Chlorthalidone [Hygroton] 12.5 mg PO DAILY #30 tab 12/25/17 Nitroglycerin [Nitrostat] 0.4 mg SUBLINGUAL Q5M PRN #10 tab 12/25/17 clopidogrel 75 mg tablet 75 mg PO DAILY 01/08/18 Primary Care Physician: Miguel Love MD [Primary Care Provider] - Test Results: Test results from this visit will be discussed in further detail at your follow- up appointment, if applicable. Please Follow Up With: Dr. Sena When: 02/06/2018 @ 2:00 PM Proposed Discharge Date: 01/23/18 Cardiac Rehabilitation Info Cardiac Rehabilitation Program Information: Cardiac Rehabilitation is important for patients like you who are recovering from a heart problem. Cardiac rehabilitation programs are recognized as integral to the continued care of the patient with coronary heart disease. The cardiac rehabilitation program is designed to optimize a patient's physical, psychological, and social functioning. Health clinical care leader work in cardiac rehabilitation programs and assist you with getting the treatments you need to get stronger and healthier - like exercise, healthy eating habits, and medications. Cardiac rehabilitation has been show to help people with heart problems live longer and have better life enjoyment than people who do not go to cardiac rehabilitation. Please contact the Cardiac Rehabilitation Program at [facility] at in two weeks if you have not heard from them.
--- NOTE | 2018-01-22 20:15 | NURSING ---
pt walked in hallways with RN and student nurse. tolerated well. talkative, pleasant.
[2018-01-22] MEDS: Atorvastatin Calcium 80 MG Tablet PO (21:31)
[2018-01-22] MEDS: Carvedilol 3.125 MG TABLET PO (21:31)
[2018-01-22 21:41] LABS: Bedside Glucose 139 mg/dL (70-110)
[2018-01-23] VITALS (17 sets, daily range): BP systolic 84–126; BP diastolic 5–80; PULSE 50–74; RESP 12–18; TEMP 36.6–36.8; O2SAT 92–98
[2018-01-23 03:11] LABS: Bedside Glucose 132 mg/dL (70-110)
[2018-01-23 06:03] LABS: Anion Gap 8 (5-15); BUN 14 mg/dL (7-18); BUN/Creat Ratio 14.6 RATIO (10-20); Calcium,Total 8.2 mg/dL (8.5-10.1); Chloride 108 mmol/L (98-107); Cholesterol 122 mg/dL (200); Creatinine, Serum 0.96 mg/dL (0.70-1.30); EST Glomerular Filtration Rate 84 mL/min (>60); Est Glom Filt Rate - Afr Amer 101 mL/min (>60); Estimated Creatinine Clearance 74.22 ml/min; Glucose 132 mg/dL (74-106); High Density Lipoprotein 30 mg/dL; Potassium 3.5 mmol/L (3.5-5.1); Sodium Level 142 mmol/L (136-145); Triglycerides 180 mg/dL; Very Low Density Lipoprotein 36 mg/dL (5-40)
[2018-01-23 06:04] LABS: Hemoglobin 13.4 g/dl (13.0-16.5); Mean Corp Hgb Conc 33.5 g/gl (32-36); Mean Corpuscular Hgb 29.9 pg (27.0-32.0); Mean Corpuscular Volume 89.3 fL (80-94); Mean Platelet Vol. 10.1 fl (6.2-12.0); Platelet Count 103 K/mm3 (150-450); RBC Distribution Width CV 13.7 % (11.6-14.6); RBC Distribution Width SD 44.9 fl (35.1-43.9); Red Blood Count 4.48 M/mm3 (4.6-6.2)
[2018-01-23 06:06] LABS: Scan Indicated on CBC? Y/N NO
[2018-01-23] MEDS: Chlorthalidone 50 MG Tablet 12.5 MG PO (08:32)
[2018-01-23] MEDS: Clopidogrel Bisulfate 75 MG Tablet PO (08:33)
[2018-01-23] MEDS: Carvedilol 3.125 MG TABLET PO (08:33)
[2018-01-23] MEDS: Pantoprazole Sodium 20 MG Tablet PO (08:33)
[2018-01-23] MEDS: Aspirin E.C. 81 MG Tablet PO (08:33)
[2018-01-23] MEDS: Psyllium 1 PACKET PO (08:33)
[2018-01-23] MEDS: Insulin Human 75/25 Kwickpen 20 UNIT SC (08:43)
[2018-01-23 08:50] LABS: Bedside Glucose 117 mg/dL (70-110)
--- NOTE | 2018-01-23 10:00 | EKG12_ITS ---
Test Reason : AM EKG Blood Pressure : / mmHG Vent. Rate : 059 BPM Atrial Rate : 059 BPM P-R Int : 178 ms QRS Dur : 080 ms QT Int : 426 ms P-R-T Axes : 060 022 007 degrees QTc Int : 421 ms Sinus bradycardia Low voltage QRS (limb leads) Nonspecific T wave abnormality Abnormal ECG Confirmed by FILEMON BOLIVAR, MERVAT ([id number]), production editor DUTCH JOHNSON ([id number]) on 01/28/2018 3:50:54 PM Referred By: Tyler Sena Confirmed By:MERVAT COLBERT MD
--- NOTE | 2018-01-23 11:08 | PCM.PN.CARD ---
Subjectve: Patient doing very well, no 24-hour events. Telemetry negative. Right groin is clean/dry/intact, no thrills or bruits noted. EKG shows normal sinus rhythm/sinus bradycardia, no acute changes. Hemoglobin and creatinine are within nominal limits. Objective: Vital Signs Temp Pulse Resp BP Pulse Ox 98.3 F 65 16 112/69 98 01/23/18 02:00 01/23/18 10:00 01/23/18 10:00 01/23/18 10:00 01/23/18 10:00 Oxygen Flow Rate (L/min) 2 Oxygen Delivery Method Room Air Weight: 174 lb 9.698 oz Body Mass Index (BMI) 26.4 Intake and Output for Last 24 Hours 01/21/18 01/22/18 01/23/18 23:59 23:59 23:59 Intake Total 1530 / 1530 1300 / 1300 Output Total 800 / 800 1125 / 1125 Balance 730 / 730 175 / 175 General: Awake, Alert, Oriented x 3 HEENT: PERRL, EOMI, Sclera Non Icteric Neck: Supple, Good ROM, No Lymph Node Enlargement Lungs: Clear to auscultation Cardiovascular: Regular Rhythm, Normal S1, Normal S2, No Murmurs, No Rubs, No Gallops Vascular: No Carotid Bruits, Normal Femoral Pulses, Normal Radial Pulses, Normal Dorsalis Pedal Pulse, Normal Posterior Tibial Pulses Abdomen: Bowel Sounds Present, Soft, Non Tender, No HSM, No Organomegaly Extremities: No Cyanosis, No Clubbing, No edema Neurological: No Focal Motor or Sensory Deficit 01/23/18 05:30: Sodium 142, Potassium 3.5, Chloride 108 H, Carbon Dioxide 26.0, Anion Gap 8, BUN 14, Creatinine 0.96, Est GFR (MDRD) Af Amer 101, Est GFR (MDRD) Non-Af 84, BUN/Creatinine Ratio 14.6, Glucose 132 H, Calcium 8.2 L, Triglycerides 180, Cholesterol 122, LDL Cholesterol 56, VLDL Cholesterol 36, HDL Cholesterol 30 L 01/23/18 05:30: WBC 6.0, RBC 4.48 L, Hgb 13.4, Hct 40.0, MCV 89.3, MCH 29.9, MCHC 33.5, RDW 13.7, RDW Differential 44.9 H, Plt Count 103 L, MPV 10.1 Rhythm: EKG: ECHO: Stress Test: Cardiac Cath: PCI: CT Surgery: Holter monitor: EPS: PPM: CXR: Chest CT Scan: Medical Necessity - Tobacco Use Smoking Status: Former smoker Assessment/Plan 1. Coronary artery disease: Patient underwent successful complex angioplasty and drug-eluting stent to the distal RCA/proximal PDA with an excellent result. No 24-hour events. He is doing very well. No additional intervention required in his LAD or left circumflex. Recommend he proceed with cardiac rehab. He will continue his current medications. If his heart rate becomes too slow we can decrease his beta-daniela. 2. Hyperlipidemia: Continue statin based medication. We will repeat his lipid profile at the conclusion of cardiac rehab. 3. Patient may be discharged home and follow-up with Dr. Sena going forward. Code Visit Inpatient E&M: 35952 Subs Hosp L2
--- OUTSIDE RECORDS SUMMARY | 2018-03-19 11:52 | XMS RPT_ITS ---
:1950 Author Organization OHIP Support Name Relationship Address Phone R Unavailable Unavailable Unavailable ANA TREJOYNE (MOODY) Unavailable Unavailable + [place] [address] R Unavailable Unavailable Unavailable ANA TREJO (MOODY) Unavailable . + [place] [address] R Unavailable Unavailable Unavailable ANA TREJOYNE (MOODY) Unavailable . + [place] [address] R Unavailable Unavailable Unavailable ANA TREJO (MOODY) Unavailable Unavailable + [place] [address] R Unavailable Unavailable Unavailable ANA TREJOYNE () Unavailable Unavailable + [place] [address] R Unavailable Unavailable Unavailable ANA TREJO (MOODY) Unavailable Unavailable + [place] [address] R Unavailable Unavailable Unavailable ANA TREJO (MOODY) Unavailable . + [place] [address] R Unavailable Unavailable Unavailable ANA TREJO Unavailable Unavailable + R Unavailable Unavailable Unavailable ANA TREJOYNE (MOODY) Unavailable . + [place] [address] R Unavailable Unavailable Unavailable ANA TREJO (MOODY) Unavailable . + [place] [address] R Unavailable Unavailable Unavailable ANA TREJO Unavailable Unavailable + R Unavailable Unavailable Unavailable ANA TREJO Unavailable Unavailable + R Unavailable Unavailable Unavailable ANA TREJO Unavailable Unavailable + R Unavailable Unavailable Unavailable ANA TREJO Unavailable Unavailable + R Unavailable Unavailable Unavailable ANA TREJO Unavailable Unavailable + R Unavailable Unavailable Unavailable ANA TREJO Unavailable Unavailable + R Unavailable Unavailable Unavailable ANA TREJO Unavailable Unavailable + R Unavailable Unavailable Unavailable ANA TREJO (MJ) Unavailable . + [place] [address] R Unavailable Unavailable Unavailable ANA TREJO (MJ) Unavailable . + [place] [address] R Unavailable Unavailable Unavailable ANA TREJO Unavailable Unavailable + R Unavailable Unavailable Unavailable ANA TREJO Unavailable Unavailable + R Unavailable Unavailable Unavailable ANA TREJO Unavailable Unavailable + R Unavailable Unavailable Unavailable ANA TREJO Unavailable Unavailable + R Unavailable Unavailable Unavailable ANA TREJO Unavailable Unavailable + Care Team Providers Name Role Phone Tyler Sena Attending Unavailable Gunning, Miguel Referring Unavailable Tyler Sena Attending Unavailable Tyler Sena Referring Unavailable JOSE MARADIAGA Attending Unavailable Gunning, Miguel Primary Care Unavailable Deoras, Jennifer Consulting Unavailable JOSE MARADIAGA Attending Unavailable JOSE MARADIAGA Referring Unavailable Gunning, Miguel Primary Care Unavailable JOSE MARADIAGA Attending Unavailable JOSE MARADIAGA Referring Unavailable Gunning, Miguel Primary Care Unavailable Gunning, Miguel Attending Unavailable Gunning, Miguel Referring Unavailable Gunning, Miguel Primary Care Unavailable JOSE MARADIAGA Consulting Unavailable Gunning, Miguel Attending Unavailable Gunning, Miguel Referring Unavailable Gunning, Miguel Primary Care Unavailable Gunning, Miguel Primary Care Unavailable JOSE MARADIAGA Attending Unavailable JOSE MARADIAGA Referring Unavailable JOSE MARADIAGA Consulting Unavailable Gunning, Miguel Primary Care Unavailable Sena, Tyler Referring Unavailable White, Jazmyn Admitting Unavailable Paintsil, [place] Attending Unavailable Tyler Sena Consulting Unavailable White, Jazmyn Admitting Unavailable White, Jazmyn Attending Unavailable Sena, Tyler Referring Unavailable Gunning, Miguel Primary Care Unavailable White, Jazmyn Consulting Unavailable White, Jazmyn Admitting Unavailable SenaJimmyel Attending Unavailable Sena, Tyler Referring Unavailable Gunning, Miguel Primary Care Unavailable Tyler Sena Consulting Unavailable Paintsil, [place] Consulting Unavailable White, Jazmyn Admitting Unavailable Paintsil, [place] Attending Unavailable Sena, Tyler Referring Unavailable Gunning, Miguel Primary Care Unavailable Sena, Tyler Consulting Unavailable Paintsil, [place] Consulting Unavailable White, Jazmyn Admitting Unavailable Sena, Tyler Attending Unavailable Sena, Tyler Referring Unavailable Gunning, Miguel Primary Care Unavailable Sena, Tyler Consulting Unavailable Paintsil, [place] Consulting Unavailable White, Jazmyn Admitting Unavailable Paintsil, [place] Attending Unavailable Sena, Tyler Referring Unavailable Gunning, Miguel Primary Care Unavailable Sena, Tyler Consulting Unavailable Paintsil, [place] Consulting Unavailable JOSE MARADIAGA Attending Unavailable JOSE MARADIAGA Referring Unavailable Gunning, Miguel Primary Care Unavailable JOSE MARADIAGA Consulting Unavailable Sena, Tyler Attending Unavailable Sena, Tyler Referring Unavailable Gunning, Miguel Primary Care Unavailable Sena, Tyler Admitting Unavailable Sena, Tyler Attending Unavailable Gunning, Miguel Referring Unavailable Sena, Tyler Attending Unavailable Sena, Tyler Referring Unavailable Gunning, Miguel Primary Care Unavailable Sena, Tyler Attending Unavailable Paintsil, [place] Referring Unavailable Sena, Tyler Attending Unavailable Sena, Tyler Referring Unavailable Gunning, Miguel Primary Care Unavailable Hay, [place] Attending Unavailable Sena, Tyler Referring Unavailable Hay, [place] Attending Unavailable Paintsil, [place] Referring Unavailable Sena, Tyler Admitting Unavailable Sena, Tyler Attending Unavailable Sena, Tyler Referring Unavailable Gunning, Miguel Primary Care Unavailable Sena, Tyler Consulting Unavailable JOSE MARADIAGA Attending Unavailable JOSE MARADIAGA Referring Unavailable Gunning, Miguel Primary Care Unavailable PROBLEMS PROBLEMS DATE TYPE CONDITION / CODE ATTENDING STATUS SOURCE 02/06/2018 Unknown E11.65 - Type 2 JOSE MARADIAGA Active [place] diabetes mellitus with Community hyperglycemia / Hospital E11.65(ICD-10) Repository 01/09/2018 Unknown I25.10 - Tyler Sena Active [place] Atherosclerotic heart Community disease [facility] coronary artery Repository without angina pectoris / I25.10(ICD-10) 01/09/2018 Unknown E78.00 - Pure Nathen, Tyler Active [place] hypercholesterolemia, Community unspecified / Hospital E78.00(ICD-10) Repository 01/13/2018 Unknown I10 - Essential Hay, [place] Active [facility] (primary) hypertension Community / I10(ICD-10) Hospital Repository 01/13/2018 Unknown R94.31 - Abnormal Hay, Tree Active [facility] electrocardiogram Community [ECG] [EKG] / Hospital R94.31(ICD-10) Repository 01/13/2018 Unknown I25.110 - Hay, Tree Active [facility] Atherosclerotic heart Community disease [facility] [place] [facility] coronary artery with Repository unstable angina pectoris / I25.110(ICD-10) 01/13/2018 Unknown Z95.5 - Presence of Hay, Tree Active [facility] coronary angioplasty Community implant and graft / Hospital Z95.5(ICD-10) Repository 12/05/2017 Unknown N18.3 - Chronic kidney Gunning, Active [place] disease, stage 3 [facility] (moderate) / Hospital N18.3(ICD-10) Repository 12/05/2017 Unknown E11.9 - Type 2 Gunning, Active [place] diabetes mellitus [facility] without complications Hospital / E11.9(ICD-10) Repository 12/05/2017 Unknown E78.5 - Gunning, Active [facility] Hyperlipidemia, [facility] unspecified / Hospital E78.5(ICD-10) Repository 12/04/2017 Unknown N18.4 - Chronic kidney Gunning, Active [place] disease, stage 4 [facility] (severe) / Hospital N18.4(ICD-10) Repository PROCEDURES PROCEDURES No Procedure Records FoundRESULTS RESULTS CARDIOLOGY VISIT Observed: 02/06/2018 Status: F Source: [place] RE[place] 2:42 PM [facility] REPOSITORY [facility] [address] [place] [address] OFFICE VISIT Date of Service: 02/06/18 MR#: [id number] Acct: [id number] Name: DOMINGA TREJO Rep #: [id number] : 1950 Provider: Tyler Sena MD Age/Sex: 67/M Location[place] [facility] Status: Signed HPI HPI Chief Complaint: routine f/u Details: DOMINGA TREJO, is a 67 M with a history of hypertension, hypercholesterolemia, diabetes, coronary artery disease status post angioplasty and stenting to his RCA in the distant past, who presents to the office today for follow- up for acute inferior wall ST elevation myocardial infarction on 12/23/17. Patient underwent emergent left heart catheterization which found nonobstructive disease of his LAD and left circumflex, a codominant system, and critical in-stent restenosis of his mid right coronary artery receiving a 2.5 x-20 Promus Synergy. In addition he had significant ostial PDA stenosis but we were unable to cannulate his PDA and aborted the procedure due to the patient's severe back pain. Patient then returned on 01/22/18 for elective angioplasty and drug-eluting stenting of the distal RCA segue into the ostial PDA. Patient received a 2.25X 12 Promus Synergy stent with an excellent result. His remaining RCA stent was healing nicely. Echocardiogram dated dated 12/23/17 showed intact LV function with an EF of 65%, and normal RVSP. Patient is now here in follow-up. On further history the patient is a nondiabetic, previous smoker who quit around 20 years ago, after about a 84-auux-nzdo smoking history. Since her last visit, the patient is doing quite well. He is about to start cardiac rehab. He is taking and tolerating his medicines well. He denies any exertion chest pain, angina, shortness of breath or dyspnea on exertion. In our office today's blood pressure is 108/60, and pulse is 56 and regular. His physical exam is as below. His right groin is clean/dry/intact without evidence of thrills, bruits or hematoma. Lipids as of 12/24/17 showed HDL 24 and an LDL of 50. 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 [Ecotrin] 81 mg PO DAILY@0800 12/23/17 [History Confirmed 02/06/18] Atorvastatin Calcium [Lipitor] 80 mg PO QHS 12/23/17 [History Confirmed 02/06/18] Lactobacillus Acidophilus [Acidophilus] 1 cap PO DAILY 12/23/17 [History Confirmed 02/06/18] Lansoprazole 15 mg PO DAILY 12/23/17 [History Confirmed 02/06/18] Psyllium [Metamucil] 1 packet PO DAILY 12/23/17 [History Confirmed 02/06/18] Insulin NPH Hum/Reg Insulin Hm [Novolin 70-30 100 Unit/ml Vial] 20 unit SQ BIDCM 12/24/17 [History Confirmed 02/06/18] Acetaminophen [Tylenol Tablet] 650 mg PO Q6H PRN PRN tab 12/25/17 [Rx Confirmed 02/06/18] Chlorthalidone [Hygroton] 12.5 mg PO DAILY #30 tab 12/25/17 [Rx Confirmed 02/06/18] Nitroglycerin [Nitrostat] 0.4 mg SUBLINGUAL Q5M PRN #10 tab 12/25/17 [Rx Confirmed 02/06/18] clopidogrel 75 mg tablet 75 mg PO DAILY 01/08/18 [History Confirmed 02/06/18] carvedilol 3.125 mg tablet 3.125 mg PO BID #180 tab 02/06/18 [Rx Confirmed 02/06/18] PFSH Medical History Atherosclerotic heart disease of [place] coronary artery without angina pectoris (Chronic 12/23/17) History of acute inferior wall RI (Chronic 12/23/17) HTN (hypertension) (Chronic) HLD (hyperlipidemia) (Chronic) Diabetes mellitus, type II (Chronic) GERD (gastroesophageal reflux disease) (Chronic) Surgical History Stented coronary artery (Chronic 01/22/18) Family History Father Negative for ASCVD Mother Negative for ASCVD Social History Smoking Status: Never smoker ROS Const Const: Positive for other (Had second PCI: feels well, starts Cardiac Rehab Feb 10.); negative for fatigue, weakness, body ache, fever(s), headache(s), chills, frequent falls, night sweats, daytime sleepiness, difficulty sleeping, excessive sweating, weight gain, weight loss, increased appetite, poor appetite or anorexia Eyes Eyes: Negative for blind spots, loss of peripheral vision, transient loss of vision, blurry vision, change in vision, double vision, floaters, tunnel vision or other ENT ENT: Negative for headache(s), dizziness, hearing loss, tinnitus, Nosebleed/epistaxis, balance problems, post nasal drip, lip swelling, tongue swelling, bleeding gums, hoarseness, neck pain, dry mouth or other Cardio Chest Pain: No (Only twinges 2 days after second PCI and none since) Palpitations: No Edema: None Muscle aches with walking: None Resp Respiratory: Negative for SOB with activity, SOB at rest, SOB orthopnea\SOB lying down, Cough, Coughing up blood/hemoptysis, chest congestion, pain on inspiration, snoring, stridor, wheezing, crackles, paroxysmal nocturnal dyspnea or other GI GI: Negative nausea, vomiting, heartburn, constipation, belching, bloating, cramping, vomiting blood/hematemesis, bright, red blood in stools, black,tarry stools, loose stools, Difficulty Swallowing or other : Negative for hematuria, frequent nighttime urination/ nocturia, erectile dysfunction or abnormal vaginal bleeding Musc Musc: Negative for balance problems, muscle aches/ myalgia, muscle weakness or joint pain Skin Skin: Negative redness, non-healing lesions, rash, unusual bruising, skin ulcer, wounds, jaundice or other Neuro Neuro: Negative for weakness, headache(s), frequent falls, blurry vision, double vision, dizziness, lightheadedness, near syncope, syncope, orthostatic symptoms, confusion, memory loss, restless legs, vertigo, seizures, lack of coordination or other [place] Hematologic/Lymphatic: Negative for easy bleeding, easy bruising, enlarged lymph nodes or other Endo Endo: Negative for fatigue, excessive sweating, cold intolerance, heat intolerance, flushing, increased thirst/drinking, increased hunger, hair loss, hair growth or other Psych Psych: Negative for anxiety, depression, thoughts of harming anyone, thoughts of harming yourself, visual hallucinations, panic attacks or audible hallucinations Allergy Allergy/Immunology: Negative for lip swelling, Negative for tongue swelling, Negative for rash, Negative for throat swelling, Negative for hives Cardiology Exam Const Appearance: cooperative, healthy appearing and no acute distress Nutritional Appearance: well nourished Orientation: alert, oriented x3 and oriented to person Head Head: normal to inspection, atraumatic and normocephalic Nose: external nose normal Face and Sinus: face symmetric Mouth: oral mucosae normal Eyes General: appearance normal, both eyes and all related structures Eyelids: eyelids normal Conjunctivae: conjunctivae normal Pupils: PERRL and normal by confrontation EOM: EOM intact bilaterally Neck Neck: normal visual inspection and full ROM Carotids: normal carotid upstroke Chest Chest inspection: normal inspection of the chest Auscultation: Bilateral: Clear to Auscultation Cardio Palpation: normal PMI Rate: regular rate Rhythm: regular rhythm Heart sounds: S1 normal and S2 normal GI GI: normal to inspection, no hepatosplenomegaly and bowel sounds present Neuro General: alert, oriented x3, awake, CN's II-XI intact bilaterally and moves all extremities Skin Skin: no rashes or lesions noted Extremities Pulses: Normal: Right Femoral Pulse, Left Femoral Pulse, Right Dorsalis Pedis Pulse, Left Dorsalis Pedis Pulse, Right Posterior Tibial Pulse, Left Posterior Tibial Pulse, Right Radial Pulse, Left Radial Pulse Lower Extremity Edema: None: Bilateral Psych Psychological: normal affect Assessment AND Plan 1. Atherosclerotic heart disease of [place] coronary artery without angina pectoris I25.10 LAURA (2.5X20 Promus Synergy) to RCA; pt to have staged procedure for PCI of ostial PDA Plan 1. Coronary artery disease: No exertional anginal symptoms at this time. No indication for any additional testing. His blood pressure and heart rate are well controlled. Continue baby aspirin, Coreg, Plavix. He is going to enroll in cardiac rehab in a few days. I encouraged him to do cardiac rehab to its completion. I also encouraged him not to proceed with exercising at his outside facility and to at least 1 month into cardiac rehab and assuming he requires no changes. 2. Pure hypercholesterolemia E78.00 Plan 2. Hyperlipidemia: His LDL and HDL cholesterol should be at goal. His LDL recently in December 2017 was 56. Continue Lipitor. 3. Return office in 6 months This note was generated using a voice recognition system and there may be incorrect words, spelling or punctuation that were not noted when reviewing the office note prior to saving. Plan Detail Other Medications Refilled: Follow Up +6m (Nathen) Coding Level of Care Code Off vis,est,level 3 Diagnoses Atherosclerotic heart disease of [place] coronary artery without angina pectoris I25.10 Pure hypercholesterolemia E78.00 Hyperlipidemia type: pure hypercholesterolemia Coding Level of Care Code Off vis,est,level 3 Diagnoses Atherosclerotic heart disease of [place] coronary artery without angina pectoris I25.10 Pure hypercholesterolemia E78.00 Hyperlipidemia type: pure hypercholesterolemia 02/06/18 1442 <Electronically signed by Tyler Sena MD> Date Tyler Maya Signature: Date (if applicable) CC: Miguel Galvan MD 12 LEAD ELECTROCARDIOGRAM Observed: 01/28/2018 Status: F Source: [place] 3:52 PM [facility] REPOSITORY [facility] Cardiovascular Services [address] [place] [address] 12 Lead EKG 01/22/18 1031 MR#: [id number] Acct: [id number] Name: DOMINGA TREJO Rep #: [id number] : 1950 67 From: Sony Colbert MD Attending Dr: Tyler Sena MD Status: DIS DONNIE Ordering Dr: Tyler Sena MD Date: 01/22/18 Location: ICU Sex: M C Admitted: 01/22/18 Test Reason : POST PCI Blood Pressure : / mmHG Vent. Rate : 049 BPM Atrial Rate : 049 BPM P-R Int : 172 ms QRS Dur : 080 ms QT Int : 466 ms P-R-T Axes : 065 042 -17 degrees QTc Int : 420 ms Sinus bradycardia Low voltage QRS Borderline ECG Confirmed by FILEMON BOLIVAR, SONY ([id number]), telegraph editor DUTCH JOHNSON ([id number]) on 01/28/2018 3:52:26 PM Referred By: Tyler Sena Confirmed By:SONY COLBERT MD 01/28/18 1552 Date Sony Colbert MD CC: Miguel Galvan MD; Tyler Sena MD Signed 12 LEAD ELECTROCARDIOGRAM Observed: 01/28/2018 Status: F Source: [place] 3:51 PM [facility] REPOSITORY [facility] Cardiovascular Services [address] [place] [address] 12 Lead EKG 01/23/18 0452 MR#: [id number] Acct: [id number] Name: DOMINGA TREJO Rep #: [id number] : 1950 67 From: Sony Colbert MD Attending Dr: Tyler Sena MD Status: DIS DONNIE Ordering Dr: Tyler Sena MD Date: 01/23/18 Location: ICU Sex: M C Admitted: 01/22/18 Test Reason : AM EKG Blood Pressure : / mmHG Vent. Rate : 059 BPM Atrial Rate : 059 BPM P-R Int : 178 ms QRS Dur : 080 ms QT Int : 426 ms P-R-T Axes : 060 022 007 degrees QTc Int : 421 ms Sinus bradycardia Low voltage QRS (limb leads) Nonspecific T wave abnormality Abnormal ECG Confirmed by FILEMON BOLIVAR, SONY ([id number]), telegraph editor DUTCH JOHNSON ([id number]) on 01/28/2018 3:50:54 PM Referred By: Tyler Sena Confirmed By:SONY COLBERT MD 01/28/18 8320 Date Sony Colbert MD CC: Miguel Galvan MD; Tyler Sena MD Signed BEDSIDE GLUCOSE Collected: 01/23/2018 Status: F Source: [place] 8:42 AM [facility] REPOSITORY TYPE CODE TESTS RESULT OUT OF REFERENCE UNITS RANGE LAB L501.080 70-110 mg/dL High BEDSIDE GLU 117 Result Comment: MANAGEMENT OF PATIENT CARE PER NURSING PROTOCOL Performed By: #### L501.080 #### [facility] Point of Care [address] [place] [address] DISCHARGE INSTRUCTION Observed: 01/23/2018 Status: F Source: [place] 7:47 AM [facility] REPOSITORY [facility] Medical Records Department [address] [place] [address] Instructions for Home/Discharge Instructions 01/22/18 1556 MR#: [id number] Acct: [id number] Name: DOMINGA TREJO Joshua Rep #: [id number] : 1950 67 From: Wu Calero SURGICAL DRESSING MAKER-C PCP: Miguel Galvan MD Status: REG SDC Discharge Diet: Low fat/ Low Cholesterol Discharge Activity: Return to Normal Activity May shower in (days): 1 May resume sexual activity in: 1-2 weeks Lifting Restrictions: Do not lift anything greater than 10 pounds for 3 days Call your doctor if your incision/area has: Continuous Slow Oozing, Sudden Increased Bleeding, Increased Pain/ Swelling, Increased Redness, Foul Smelling Discharge, Swelling at the incision site Call your doctor if you observe: Fever of 101 or Higher, Shortness of breath, Chest pain Change Dressing in (Days):: 1 Cleanse incision/area with: Soap AND Water Additional Instructions: You are scheduled for an office appointment with Dr. Sena on 02/06/2018 at 2 PM. At this time, we will assess her overall progress and evaluate readiness for cardiac rehab. Cardiac rehab may contact you prior to this office appointment. You will continue with aspirin and Plavix therapy. You will remain on your Plavix for a minimum of 1 year. If anyone asks you to stop this medication or discontinue it, please contact the [facility] office first at [phone]. Allergies/Adverse Reactions: Allergies lisinopril Adverse Reaction (Intermediate, Verified 01/09/18 15:03) COUGH Medications to take at Discharge Aspirin E.C. [Ecotrin] 81 mg PO DAILY@0800 12/23/17 Atorvastatin Calcium [Lipitor] 80 mg PO QHS 12/23/17 Lactobacillus Acidophilus [Acidophilus] 1 cap PO DAILY 12/23/17 Lansoprazole 15 mg PO DAILY 12/23/17 Psyllium [Metamucil] 1 packet PO DAILY 12/23/17 Insulin NPH Hum/Reg Insulin Hm [Novolin 70-30 100 Unit/ml Vial] 20 unit SQ BIDCM 12/24/17 Acetaminophen [Tylenol Tablet] 650 mg PO Q6H PRN PRN tab 12/25/17 Carvedilol [Coreg (Beta Kaz)] 3.125 mg PO BID #60 tab 12/25/17 Chlorthalidone [Hygroton] 12.5 mg PO DAILY #30 tab 12/25/17 Nitroglycerin [Nitrostat] 0.4 mg SUBLINGUAL Q5M PRN #10 tab 12/25/17 clopidogrel 75 mg tablet 75 mg PO DAILY 01/08/18 Primary Care Physician: Miguel Galvan MD [Primary Care Provider] - Test Results: Test results from this visit will be discussed in further detail at your follow-up appointment, if applicable. Please Follow Up With: Dr. Sena When: 02/06/2018 @ 2:00 PM Proposed Discharge Date: 01/23/18 Cardiac Rehabilitation Info Cardiac Rehabilitation Program Information: Cardiac Rehabilitation is important for patients like you who are recovering from a heart problem. Cardiac rehabilitation programs are recognized as integral to the continued care of the patient with coronary heart disease. The cardiac rehabilitation program is designed to optimize a patient's physical, psychological, and social functioning. Health acute care nurse work in cardiac rehabilitation programs and assist you with getting the treatments you need to get stronger and healthier - like exercise, healthy eating habits, and medications. Cardiac rehabilitation has been show to help people with heart problems live longer and have better life enjoyment than people who do not go to cardiac rehabilitation. Please contact the Cardiac Rehabilitation Program at [facility] at in two weeks if you have not heard from them. 01/23/18 0747 <Electronically signed by Wu Calero NP-C> Date Wu ADAMS CC: Miguel Galvan MD BASIC METABOLIC Collected: 01/23/2018 Status: F Source: [place] PROFILE ([facility]) 5:30 AM [facility] REPOSITORY TYPE CODE TESTS RESULT OUT OF RANGE REFERENCE UNITS LAB L501.0100 74-106 mg/dL High GLU 132 Result Comment: Fasting Glucose result greater than or equal to 126 mg/dL suggests DIABETES MELLITUS per A.D.A. criteria. Please note revised GLUCOSE reference range effective 2017. LAB L501.1000 7-18 mg/dL Normal BUN 14 LAB L501.1100 0.70-1.30 mg/dL Normal CREAT,SERUM 0.96 Result Comment: The validity of the calculated GFR AND GFRAA in patients over 70 years has not been determined. Clinical correlation is essential. LAB L501.1110 >60 mL/min Normal EST GFR 84 Result Comment: Non- GFR Calc LAB L501.1115 >60 mL/min Normal EST GFR - AA 101 Result Comment: GFR Calc LAB L501.1255 ml/min Normal Estimated CRCL 74.22 LAB L501.1300 10-20 RATIO Normal BUN/CRE 14.6 LAB L501.2200 8.5-10 mg/dL Low .1 CA 8.2 LAB L501.5300 136-14 mmol/L Normal 5 NA 142 LAB L501.5600 3.5-5. mmol/L Normal 1 K 3.5 LAB L501.5900 98-107 mmol/L High CL 108 LAB L501.6100 21.0-3 mmol/L Normal 2.0 CO2 26.0 LAB L501.6200 5-15 Normal GAP 8 Performed By: #### L500.2500, L500.4100 #### [facility] [address] [place], [place], [id number] LIPID PROFILE Collected: 01/23/2018 Status: F Source: [place] 5:30 AM [facility] REPOSITORY TYPE CODE TESTS RESULT OUT OF RANGE REFERENCE UNITS LAB L501.4900 200 mg/dL Normal CHOL 122 Result Comment: <200 mg/dL Desirable 200-240 mg/dL Borderline >240 mg/dL High Risk LAB L501.5000 mg/dL Normal TRIG 180 Result Comment: The drugs N-Acetylcysteine and Metamizole may falsely depress this assay. Serum Triglycerides Reference Interval Normal <150 mg/dL Borderline high 150 - 199 mg/dL High 200 - 499 mg/dL Very High > or = 500 mg/dL LAB L501.6400 mg/dL Low HDL 30 Result Comment: The drugs N-Acetylcysteine and Metamizole may falsely depress this assay. Reference Range HDL <40 mg/dL Low HDL Cholesterol HDL >or= 60 mg/dL High HDL Cholesterol LAB L501.6500 0-130 mg/dL Normal LDL 56 LAB L501.6600 5-40 mg/dL Normal VLDL 36 Performed By: #### L500.2500, L500.4100 #### [facility] [address], [place], [id number] CBC-COMPLETE BLOOD CNT Collected: 01/23/2018 Status: F Source: [place] NO DIFF 5:30 AM [facility] REPOSITORY TYPE CODE TESTS RESULT OUT OF RANGE REFERENCE UNITS LAB L100.1000 4.4-11.0 K/mm3 Normal WBC 6.0 LAB L100.1200 4.6-6.2 M/mm3 Low RBC 4.48 LAB L100.1300 13.0-16.5 g/dl Normal HGB 13.4 LAB L100.1400 40-54 % Normal HCT 40.0 LAB L100.1500 80-94 fL Normal MCV 89.3 LAB L100.1600 27.0-32.0 pg Normal MCH 29.9 LAB L100.1700 32-36 g/gl Normal MCHC 33.5 LAB L100.1810 11.6-14.6 % Normal RDW CV 13.7 LAB L100.1820 35.1-43.9 fl High RDW SD 44.9 LAB L100.1900 150-450 K/mm3 Low PLT 103 LAB L100.2000 6.2-12.0 fl Normal MPV 10.1 Performed By: #### L100.0500 #### [facility] [address] [facility]. [place], [place], [id number] BEDSIDE GLUCOSE Collected: 01/23/2018 Status: F Source: [place] 3:08 AM [facility] REPOSITORY TYPE CODE TESTS RESULT OUT OF REFERENCE UNITS RANGE LAB L501.080 70-110 mg/dL High BEDSIDE GLU 132 Result Comment: MANAGEMENT OF PATIENT CARE PER NURSING PROTOCOL Performed By: #### L501.080 #### [facility] [address] [facility] [place], [place] [id number] BEDSIDE GLUCOSE Collected: 01/22/2018 Status: F Source: [place] 9:29 PM [facility] REPOSITORY TYPE CODE TESTS RESULT OUT OF REFERENCE UNITS RANGE LAB L501.080 70-110 mg/dL High BEDSIDE GLU 139 Result Comment: MANAGEMENT OF PATIENT CARE PER NURSING PROTOCOL Performed By: #### L501.080 #### [facility] Point of Care [address] [place], [place] [id number] BEDSIDE GLUCOSE Collected: 01/22/2018 Status: F Source: [place] 3:00 PM [facility] REPOSITORY TYPE CODE TESTS RESULT OUT OF RANGE REFERENCE UNITS LAB L501.080 70-110 mg/dL Normal BEDSIDE GLU 83 Result Comment: MANAGEMENT OF PATIENT CARE PER NURSING PROTOCOL Performed By: #### L501.080 #### [facility] Point of Care [address] [place] [address] ACT ACTIVATED CLOTTING Collected: 01/22/2018 Status: F Source: [place] TIME 12:33 PM [facility] REPOSITORY TYPE CODE TESTS RESULT OUT OF RANGE REFERENCE UNITS LAB L9100.0100 74-137 sec Normal ACTk CLOT 136 TIME Performed By: #### L9100.0100 #### [facility] Point of Care [address] [place] [address] ACT ACTIVATED CLOTTING Collected: 01/22/2018 Status: F Source: [place] TIME 9:57 AM [facility] REPOSITORY TYPE CODE TESTS RESULT OUT OF RANGE REFERENCE UNITS LAB L9100.0100 74-137 sec High ACTk CLOT 202 TIME Performed By: #### L9100.0100 #### [facility] Point of Care [address] [place] [address] CR - HISTORY AND Observed: 01/10/2018 Status: F Source: [place] PHYSICAL 9:27 AM [facility] REPOSITORY [facility] [address] [place] [address] CR - History AND Physical MR#: [id number] Acct: [id number] Name: DOMINGA TREJO Rep #: [id number] : 1950 67 From: Mazin Fofana RN PCP: Miguel Galvan MD DOS: 01/09/18 CR - History AND Physical - General Arrival date:: 01/09/18 Arrival time:: 11:57 Date of Referral:: 01/09/18 Date of CR Evaluation:: 01/09/18 Referring Physician: Dr. Forest Sena Primary Diagnosis: STEMI with stent - History of Present Cardiac Event Onset Date: Enter Onset Date of cardiac illnesses in Comment field below Current stable Angina Pectoris:: No Acute Myocardial Infarction within 12 months:: Yes Coronary Artery Bypass Graft:: No Heart valve replacement or repair:: No PTCA or coronary stenting:: Yes Heart or Heart-Lung Transplant:: No Heart Failure EF <35%:: No Type of Symptoms:: chest pressure, bilateral arm pain/aching. Interventions with present event:: needs a stent on 01/22, had 2 stents with this event. Were there any complications?: no - Medications Home Medications: Ambulatory Orders Medication Instructions Recorded Aspirin E.C. [Ecotrin] 81 mg PO DAILY@0800 12/23/17 Atorvastatin Calcium [Lipitor] 80 mg PO QHS 12/23/17 Lactobacillus Acidophilus 1 cap PO DAILY 12/23/17 - Allergies Allergies/Adverse Reactions: Allergies lisinopril Adverse Reaction (Intermediate, Verified 01/08/18 14:53) COUGH - Sleep Disorder Evaluation Hx of Sleep Apnea: No Do you snore loudly (louder than talking or can be heard through closed doors)?: Yes Do you often feel tired/ fatigued/ sleepy during daytime?: Yes Has anyone observed you stop breathing during sleep?: No History of Hypertension (for STOP score): Yes STOP Results: Positive Advanced Directives - Advanced Directives Power of Surveillance Inspector: No Living Will: No Advance Directives Information Provided: Yes Advance Directives on File: No DNR Order?:: No Past Medical History - Past Medical Illness Medical History: Past Medical History (Last Reviewed 01/08/18 @ 15:04 by Felipa Tee) Atherosclerotic heart disease of [place] coronary artery without angina pectoris (Chronic) Onset Date: 12/23/17 I25.10 LAURA (2.5X20 Promus Synergy) to RCA; pt to have staged procedure for PCI of ostial PDA History of acute inferior wall RI (Chronic) Onset Date: 12/23/17 I25.2 HTN (hypertension) (Chronic) I10 HLD (hyperlipidemia) (Chronic) E78.5 Diabetes mellitus, type II (Chronic) E11.9 GERD (gastroesophageal reflux disease) (Chronic) K21.9 - Past Surgical History Surgical History: Past Surgical History (Last Reviewed 01/08/18 @ 15:04 by Felipa Tee) Stented coronary artery (Chronic) Z95.5 LAURA (2.5X20 Promus Synergy) to RCA; pt to have staged procedure for PCI of ostial PDA Surgical History: - - PCI x 6, appendectomy, eye surgery in youth. Social History - Smoking History Smoking Status: Former smoker Hx Smoking Cessation Date: quit 20 years ago - Alcohol Use Alcohol Usage: No - Substance Abuse Hx Substance Use: No - Occupation Occupation (List type of work in comments):: Retired - Hobbies, Recreation, Social Activities Hobbies: Other - bowling Recreational Activities: I am able to engage in all my recreational activities Social Environment - Status Marital Status: - Current Living Arrangements Living Environment:: Alone - Children How many children do you have?: 2 Do any of your children live nearby?: No - Safety Do you feel safe in your surroundings?: Yes - Assistance Do you need any assistance at home?: no Review of Systems - Review of Systems Hints: Right click = Denies (Slash). Left click = Reports ([place]) Review of Present Symptoms: Reports: Shortness of Breath with Exertion, Dizziness/Lightheadedness - due to blood sugars, Fatigue, Appetite - Normal, Appetite - Special Diet - cardiac diabetic, Sleep - Normal - sleeps poorly, no heat, pinched nerve. Denies: Shortness of Breath at Rest, PVD, Operative Discomfort, Angina, Wound Healing, Heart Arrhythmia/Irregularities, Sexual Changes - Pain Is Patient Pain Free?: No Pain Location: back - pinched nerve in back Pain Level: 12/04 Previous experience dealing with pain?: Tylenol Risk Factor Assessment - Pulse Pulse Rate: 62 Pulse Rhythm: Regular - Hypertension Blood Pressure Sitting - Right Arm: 130/80 Blood Pressure Sitting - Left Arm: 130/80 - Diabetes Diabetic History: Type II Nutrition Referral for Diabetes: Yes - Obesity Height: 5 ft 8 in Weight:: 178 lb 12.8 oz Weight in Pounds: 178.8 lbs Body Mass Index (BMI): 27.1 Desired Body Weight: 158 Realistic Weight Goal (Loss of 1-2 lbs/week): 168 Nutritional Referral for Obesity: Yes - Is is dietary counselling with Evon at [facility] - Physical Inactivity Physical Inactivity: None - Risk Stratification Risk Guidelines: Lowest Risk: Risk Factor for Smoking, Risk Factor for Hypertension, Risk Factor for Depression, Moderate Risk: Risk Factor for Dyslipidemia, Risk Factor for Diabetes, Risk Factor for Obesity, Risk Factor for Sedentary Lifestyle - For Smoking Smoking Risk Guidelines: Smoking Low Risk: None or quit greater than 6 months ago. Smoking Moderate Risk: Smoker or quit 6 months or less ago. Smoking High Risk: Smoker - For Dyslipidemia Dyslipidemia Risk Guidelines: Low Risk: Moderate Risk: High Risk: 15-25% fat 25.1-29% fat >/= 30% fat. <7% sat fat 7-9% sat fat >9% sat fat. <150 mg chol 150-299 mg chol >/= 300 mg chol. LDL <100 LDL 100-129 LDL >/= 130. Chol/HDL ratio <5.0 Chol/HDL ratio 5.0-6.0 Chol/HDL ratio >6.0. Triglycerides <100 Triglycerides 100-149 Triglycerides >/= 150 - For Diabetes Mellitus Diabetes Risk Guidelines: Diabetes Low Risk: HgA1c <6.5% and/or FBG <120. Diabetes Moderate Risk: HgA1c 6.6-7.9% and/or FBG 120- 180. Diabetes High Risk: HgA1c >/= 8% and/or FBG >180 - For Obesity/Overweight Obesity/Overweight Risk Guidelines: Obesity Low Risk: BMI <25.0. Obesity Moderate Risk: BMI 25-29.9. Obesity High Risk: BMI >/= 30.0 - For Hypertension Hypertension Risk Guidelines: Hypertension Low Risk: Systolic <120 and Diastolic <80. Hypertension Moderate Risk: Systolic 120-139 and Diastolic 80-89. Hypertension High Risk: Systolic >/= 140 and Diastolic >/= 90 - For Sedentary Lifestyle Sedentary Lifestyle Risk Guidelines: Sedentary Lifestyle Low Risk: >/= 1,500 kcal/week. Sedentary Lifestyle Moderate Risk: 700-1,499 kcal/week. Sedentary Lifestyle High Risk: < 700 kcal/week - For Depression Depression Risk Guidelines: Depression Low Risk: Not clinically depressed. Depression Moderate Risk: Mildly depressed. Depression High Risk: Clinically depressed Motivation - Motivation to Participate On a scale of 1 to 10, how prepared are you to commit to attending program?: 01/09/18 1248 <Electronically signed by Mazin Fofana RN> Date Mazin Fofana RN Outcome assessment reviewed. Exercise plan approved as documented. Treatment plan and goals support patient needs/abilities. Continue with current plan. I certify the patient demonstrates improvement and remains willing and capable of participation. the patient continues to benefit from cardiac rehab services/training. The patient may continue at current intensity, endurance and modality and progress per protocol. 01/10/18 9163 <Electronically signed by Tyler Sena MD> Cosigner Signature: Date Tyler Sena MD CC: Signed CARDIOLOGY VISIT Observed: 01/09/2018 Status: F Source: [place] REPORT 3:13 PM [facility] REPOSITORY [facility] [address] [place] [address] OFFICE VISIT Date of Service: 01/09/18 MR#: [id number] Acct: [id number] Name: DOMINGA TREJO Rep #: [id number] : 1950 Provider: Tyler Sena MD Age/Sex: 67/M Location: [facility] Status: Signed HPI HPI Chief Complaint: s/p STEMI, Details: DOMINGA TREJO, is a 67 M with a history of hypertension, hypercholesterolemia, diabetes, coronary artery disease status post angioplasty and stenting to his RCA in the distant past, who presents to the office today for follow- up for acute inferior wall ST elevation myocardial infarction on 12/23/17. Patient underwent emergent left heart catheterization which found nonobstructive disease of his LAD and left circumflex, a codominant system, and critical in-stent restenosis of his mid right coronary artery receiving a 2.5 x-20 Promus Synergy. In addition he had significant ostial PDA stenosis but we were unable to cannulate his PDA and aborted the procedure due to the patient's severe back pain. Echocardiogram dated dated 12/23/17 showed intact LV function with an EF of 65%, and normal RVSP. Patient is now here in follow-up. On further history the patient is a nondiabetic, previous smoker who quit around 20 years ago, after about a 11-jxdw-neem smoking history. Since her last visit, the patient has been doing fairly well, had some very minimal chest tenderness after his angioplasty but this has resolved. He denies any shortness of breath or dyspnea on exertion. He is taking and tolerating his medicines well. In our office today's blood pressure is 120/70, and pulse is 68 and regular. His physical exam is as below. His right groin is clean/dry/intact without evidence of thrills, bruits or hematoma. Lipids as of 12/24/17 showed HDL 24 and an LDL of 50. Intake Vital Signs01/09/18 Height 5 ft 8 in 01/09/18 Weight: 182 lb 01/09/18 Body Mass Index (BMI) 27.6 01/09/18 Blood Pressure 120/70 01/09/18 Blood Pressure Location Lt brachial Intake Visit Reasons: 2-3 WK S/P [facility] STEMI Lithographic Artist Required: No Is patient in pain?: No Allergies lisinopril Adverse Reaction (Intermediate, Verified 01/09/18 15:03) COUGH Medications Aspirin E.C. [Ecotrin] 81 mg PO DAILY@0800 12/23/17 [History Confirmed 01/09/18] Atorvastatin Calcium [Lipitor] 80 mg PO QHS 12/23/17 [History Confirmed 01/09/18] Lactobacillus Acidophilus [Acidophilus] 1 cap PO DAILY 12/23/17 [History Confirmed 01/09/18] Lansoprazole 15 mg PO DAILY 12/23/17 [History Confirmed 01/09/18] Psyllium [Metamucil] 1 packet PO DAILY 12/23/17 [History Confirmed 01/09/18] Insulin NPH Hum/Reg Insulin Hm [Novolin 70-30 100 Unit/ml Vial] 15 unit SQ ACHS 12/24/17 [History Confirmed 01/09/18] Acetaminophen [Tylenol Tablet] 650 mg PO Q6H PRN PRN tab 12/25/17 [Rx Confirmed 01/09/18] Carvedilol [Coreg (Beta Kaz)] 3.125 mg PO BID #60 tab 12/25/17 [Rx Confirmed 01/09/18] Chlorthalidone [Hygroton] 12.5 mg PO DAILY #30 tab 12/25/17 [Rx Confirmed 01/09/18] Nitroglycerin [Nitrostat] 0.4 mg SUBLINGUAL Q5M PRN #10 tab 12/25/17 [Rx Confirmed 01/09/18] clopidogrel 75 mg tablet 75 mg PO DAILY 01/08/18 [History Confirmed 01/09/18] PFSH Medical History Atherosclerotic heart disease of [place] coronary artery without angina pectoris (Chronic 12/23/17) History of acute inferior wall RI (Chronic 12/23/17) HTN (hypertension) (Chronic) HLD (hyperlipidemia) (Chronic) Diabetes mellitus, type II (Chronic) GERD (gastroesophageal reflux disease) (Chronic) Surgical History Stented coronary artery (Chronic) Family History Father Negative for ASCVD Mother Negative for ASCVD Social History Smoking Status: Former smoker ROS Const Const: Positive for other (Had stent procedure LAURA to RCA on 12/23/17, is to have another 01/22); negative for fatigue, weakness, body ache, fever(s), headache(s), chills, frequent falls, night sweats, daytime sleepiness, difficulty sleeping, excessive sweating, weight gain, weight loss, increased appetite, poor appetite or anorexia Eyes Eyes: Negative for blind spots, loss of peripheral vision, transient loss of vision, blurry vision, change in vision, double vision, floaters, tunnel vision or other ENT ENT: Negative for dizziness, hearing loss, tinnitus, Nosebleed/epistaxis, balance problems, post nasal drip, lip swelling, tongue swelling, bleeding gums, hoarseness, neck pain, dry mouth, other or headache(s) Cardio Chest Pain: No Palpitations: No Edema: None Muscle aches with walking: None Resp Respiratory: Positive for SOB with activity; negative for SOB at rest, SOB orthopnea\SOB lying down, Cough, Coughing up blood/hemoptysis, chest congestion, pain on inspiration, snoring, stridor, wheezing, crackles, paroxysmal nocturnal dyspnea or other GI GI: Negative nausea, vomiting, heartburn, constipation, belching, bloating, cramping, vomiting blood/hematemesis, bright, red blood in stools, black,tarry stools, loose stools, Difficulty Swallowing or other : Negative for hematuria, frequent nighttime urination/ nocturia, erectile dysfunction or abnormal vaginal bleeding Musc Musc: Negative for balance problems, muscle aches/ myalgia, muscle weakness or joint pain Skin Skin: Negative redness, non-healing lesions, rash, unusual bruising, skin ulcer, wounds, jaundice or other Neuro Neuro: Negative for blurry vision, double vision, dizziness, lightheadedness, near syncope, syncope, orthostatic symptoms, confusion, memory loss, restless legs, vertigo, seizures, lack of coordination, other, weakness, headache(s) or frequent falls [place] Hematologic/Lymphatic: Negative for easy bleeding, easy bruising, enlarged lymph nodes or other Endo Endo: Negative for cold intolerance, heat intolerance, flushing, increased thirst/drinking, increased hunger, hair loss, hair growth, other, fatigue or excessive sweating Psych Psych: Negative for anxiety, depression, thoughts of harming anyone, thoughts of harming yourself, visual hallucinations, panic attacks or audible hallucinations Allergy Allergy/Immunology: Negative for lip swelling, Negative for tongue swelling, Negative for rash, Negative for throat swelling, Negative for hives Cardiology Exam Const Appearance: cooperative, healthy appearing and no acute distress Nutritional Appearance: well nourished Orientation: alert, oriented x3 and oriented to person Head Head: normal to inspection, atraumatic and normocephalic Nose: external nose normal Face and Sinus: face symmetric Mouth: oral mucosae normal Eyes General: appearance normal, both eyes and all related structures Eyelids: eyelids normal Conjunctivae: conjunctivae normal Pupils: PERRL and normal by confrontation EOM: EOM intact bilaterally Neck Neck: normal visual inspection and full ROM Carotids: normal carotid upstroke Chest Chest inspection: normal inspection of the chest Auscultation: Bilateral: Clear to Auscultation Cardio Palpation: normal PMI Rate: regular rate Rhythm: regular rhythm Heart sounds: S1 normal and S2 normal GI GI: normal to inspection, no hepatosplenomegaly and bowel sounds present Neuro General: alert, oriented x3, awake, CN's II-XI intact bilaterally and moves all extremities Skin Skin: no rashes or lesions noted Extremities Pulses: Normal: Right Femoral Pulse, Left Femoral Pulse, Right Dorsalis Pedis Pulse, Left Dorsalis Pedis Pulse, Right Posterior Tibial Pulse, Left Posterior Tibial Pulse, Right Radial Pulse, Left Radial Pulse Lower Extremity Edema: None: Bilateral Psych Psychological: normal affect Assessment AND Plan 1. Atherosclerotic heart disease of [place] coronary artery without angina pectoris I25.10 LAURA (2.5X20 [email or web address]) to RCA; pt to have staged procedure for PCI of ostial PDA Plan 1. Coronary artery disease: Patient denies any exertional chest pain symptoms, but did have some chest tenderness for the last couple of weeks after his angioplasty. The patient has a critical lesion in his distal RCA/ostial PDA, and is going to return on 01/22/18 for elective angioplasty and stenting of that segment. He requires no additional angioplasty or stenting of his LAD or left circumflex as of the catheterization in late November 2017. The patient will continue his baby aspirin, Coreg, Plavix. Once his angioplasty of his PDA has been completed he will be scheduled for cardiac rehab in mid January 2018. 2. Pure hypercholesterolemia E78.00 Plan 2. Hyperlipidemia: His LDL and HDL cholesterol are fairly well-controlled. Continue aggressive LDL reduction with high-dose statins. Continue Lipitor. 3. Return office in 6 months. This note was generated using a voice recognition system and there may be incorrect words, spelling or punctuation that were not noted when reviewing the office note prior to saving. Plan Detail Other Medications Discontinued: Follow Up +6M (Nathen) Coding Level of Care Code Off vis,est,level 3 Diagnoses Atherosclerotic heart disease of [place] coronary artery without angina pectoris I25.10 Pure hypercholesterolemia E78.00 Hyperlipidemia type: pure hypercholesterolemia Coding Level of Care Code Off vis,est,level 3 Diagnoses Atherosclerotic heart disease of [place] coronary artery without angina pectoris I25.10 Pure hypercholesterolemia E78.00 Hyperlipidemia type: pure hypercholesterolemia 01/09/18 1513 <Electronically signed by Tyler Sena MD> Date Tyler Sena MD Cosigner Signature: Date (if applicable) CC: Miguel Galvan MD 12 LEAD ELECTROCARDIOGRAM Observed: 01/03/2018 Status: F Source: [place] 8:36 AM [facility] REPOSITORY [facility] [address] [place] [address] 12 Lead EKG 12/23/17 0805 MR#: [id number] Acct: [id number] Name: DOMINGA TREJO Rep #: [id number] : 1950 67 From: Tree Guido MD Attending Dr: Kiki Diallo MD Status: DIS IN Ordering Dr: Tyler Sena MD Date: 12/23/17 Location: [facility] Sex: M C Admitted: 12/23/17 Test Reason : S/P PCI Blood Pressure : / mmHG Vent. Rate : 074 BPM Atrial Rate : 074 BPM P-R Int : 178 ms QRS Dur : 086 ms QT Int : 426 ms P-R-T Axes : 069 044 072 degrees QTc Int : 472 ms Normal sinus rhythm Low voltage QRS Nonspecific ST and T wave abnormality Prolonged QT Abnormal ECG When compared with ECG of 23-DEC-2017 05:51, Significant changes have occurred Confirmed by TREE GUIDO MD ([id number]), telegraph editor DUTCH JOHNSON ([id number]) on 01/03/2018 8:35:37 AM Referred By: Tyler Sena Confirmed By:TREE GUIDO MD 01/03/18 0835 Date Tree Guido MD CC: Miguel Galvan MD; Kiki Diallo MD; Tyler Sena MD Signed 12 LEAD ELECTROCARDIOGRAM Observed: 01/03/2018 Status: F Source: [place] 8:35 AM [facility] REPOSITORY [facility] Cardi[facility] Services [address] [place] [place] [id number] 12 Lead EKG 12/24/17 0532 MR#: [id number] Acct: [id number] Name: DOMINGA TREJO Rep #: [id number] : 1950 67 From: Tree Guido MD Attending Dr: Kiki Diallo MD Status: DIS IN Ordering Dr: Tyler Sena MD Date: 12/24/17 Location: [facility] Sex: M C Admitted: 12/23/17 Test Reason : S/P PCI Blood Pressure : / mmHG Vent. Rate : 056 BPM Atrial Rate : 056 BPM P-R Int : 162 ms QRS Dur : 086 ms QT Int : 484 ms P-R-T Axes : 041 005 -16 degrees QTc Int : 467 ms Sinus bradycardia with occasional Premature ventricular complexes Low voltage QRS Borderline ECG No previous ECGs available Confirmed by TREE GUIDO MD ([id number]), telegraph editor DUTCH JOHNSON ([id number]) on 01/03/2018 8:35:24 AM Referred By: Tyler Sena Confirmed By:TREE GUIDO MD 01/03/18 0835 Date Tree Guido MD CC: Miguel Galvan MD; Kiki Diallo MD; Tyler Sena MD Signed 12 LEAD ELECTROCARDIOGRAM Observed: 01/01/2018 Status: F Source: [place] 2:35 PM [facility] REPOSITORY [facility] [address] [place] [address] 12 Lead EKG 12/25/17 0456 MR#: [id number] Acct: [id number] Name: DOMINGA TREJO Rep #: [id number] : 1950 67 From: Tree Guido MD Attending Dr: Kiki Diallo MD Status: DIS IN Ordering Dr: Tyler Sena MD Date: 12/25/17 Location: [facility] Sex: M C Admitted: 12/23/17 Test Reason : AM Blood Pressure : / mmHG Vent. Rate : 066 BPM Atrial Rate : 066 BPM P-R Int : 162 ms QRS Dur : 080 ms QT Int : 468 ms P-R-T Axes : 056 012 -50 degrees QTc Int : 490 ms Sinus rhythm with frequent Premature ventricular complexes Low voltage QRS T wave abnormality, consider inferior ischemia Abnormal ECG When compared with ECG of 23-DEC-2017 05:51, Significant changes have occurred Confirmed by HAY BOLIVAR, TREE ([id number]), telegraph editor DUTCH JOHNSON ([id number]) on 01/01/2018 2:35:14 PM Referred By: Tyler Sena Confirmed By:TREE GUIDO MD 01/01/18 1435 Date Tree Guido MD CC: Miguel Galvan MD; Kiki Diallo MD; Tyler Sena MD Signed DISCHARGE SUMMARY Observed: 12/25/2017 Status: F Source: [place] 2:13 PM [facility] REPOSITORY [facility] Medical Records Department [address] [place] [address] Discharge Summary 12/25/17 1136 MR#: [id number] Acct: [id number] Name: DOMINGA TREJO Rep #: [id number] : 1950 67 From: Kiki Diallo MD PCP: Miguel Galvan MD Status: ADM IN Y Location: [place] [address] Discharge Date and Diagnosis - Problem List Patient Problems: Active and Suspected Problems STEMI (ST elevation myocardial infarction) (Acute) Date of Admission: 12/23/17 Date of Discharge: 12/25/17 - Primary Discharge Diagnosis Active and Suspected Problems Unstable angina Acute inferior wall RI - Secondary Discharge Diagnosis Chronic Problems HTN (hypertension) (Chronic) HLD (hyperlipidemia) (Chronic) CAD (coronary artery disease) (Chronic) Diabetes mellitus, type II (Chronic) GERD (gastroesophageal reflux disease) (Chronic) Hospital Course and Treatment Imaging Results: Clinical Impression(s) from Imaging Studies Chest X-Ray 12/23/17 05:50 IMPRESSION: Normal x-ray examination of the chest. Electronically Signed: Ramandeep Saunders MD at 6:10 EDT , Service support , Cardiology Operations: None Procedures: 2-D Echocardiogram, Cardiac catheterization Summary of Care Provided: 67-year-old male with past medical history of CAD status post 6 stents, hypertension, type II DM, GERD, who does not follow-up with a hospital nurse, comes in with complaints of chest pain and found to have ST segment changes in the inferolateral hinton. Patient was sent to cardiac cath from the ED. Cath findings showed significant in-stent restenosis or thrombosis to his mid RCA, status post stents, unable to cannulate to the PDA. There is a plan to do PCI of the PDA in 4 weeks. He was managed on aspirin, Plavix, beta-kaz, losartan. His BP was relatively low, his chlorthalidone dose was decreased to 12.5 mg p.o. daily. He had hypokalemia, which was replaced. Patient Problems: Active and Suspected Problems STEMI (ST elevation myocardial infarction) (Acute) Subjective: On the day of discharge, patient was seen walking around the nurses unit. He was asymptomatic. Denies chest pain no dizziness or palpitation. Objective: Physical exam: General: Alert, Oriented x3, Cooperative, No apparent distress HEENT: Atraumatic, PERRLA, EOMI, Normocephalic Oral: Moist Mucosa Neck: Supple, No JVD, Negative Carotid Bruits Lungs: Clear to auscultation, Normal air movement Cardiovascular: Regular rate, Regular Rhythm, Normal S1, Normal S2, No murmurs Abdomen: Bowel Sounds Present, Soft, Non Tender, Non-Distended, No Hepato-splenomegaly Extremities: No edema Skin: No rashes, No breakdown Musculoskeletal: No Tenderness to Palpation of Joints or Extremities Lymphatic: No Cervical, Supraclavicular, or Inguinal Adenopathy Neurological: Cranial nerves II-XII grossly intact, Neuro grossly intact Psych/Mental Status: Normal Affect, Appropriate - Physical Exam Vital Signs Temp Pulse Resp BP Pulse Ox 97.9 F 72 16 127/68 H 97 12/25/17 09:45 12/25/17 09:45 12/25/17 09:45 12/25/17 09:45 12/25/17 09:45 Oxygen Flow Rate (L/min) 2 Oxygen Delivery Method Room Air Weight: 80.9 kg Body Mass Index (BMI) 28.2 Intake and Output for Last 24 Hours Intake Total 1423 / 1423 900 / 900 720 / 720 Output Total 1150 / 1150 900 / 900 Balance 273 / 273 0 / 0 720 / 720 Laboratory Tests Past 24 Hrs Sodium 142 Potassium 3.6 Chloride 108 H Carbon Dioxide 26.0 POC Glucose POC Glucose 218 H 113 H 156 H POC Glucose 129 H Discharge Diet: Low fat/ Low Cholesterol, 2000 mg Sodium Diet Discharge Activity: Return to Normal Activity Home Medications: Medications to take at Discharge Aspirin E.C. [Ecotrin] 81 mg PO DAILY@0800 12/23/17 Atorvastatin Calcium [Lipitor] 80 mg PO QHS 12/23/17 Clopidogrel Bisulfate [Plavix] 75 mg PO DAILY 12/23/17 Lactobacillus Acidophilus [Acidophilus] 1 capsule PO DAILY 12/23/17 Lansoprazole 15 mg PO DAILY 12/23/17 Psyllium [Metamucil] 1 packet PO DAILY 12/23/17 Insulin NPH Hum/Reg Insulin Hm [Novolin 70-30 100 Unit/ml Vial] 15 unit SQ ACHS 12/24/17 Acetaminophen [Tylenol Tablet] 650 mg PO Q6H PRN PRN tablet 12/25/17 Carvedilol [Coreg (Beta Kaz)] 3.125 mg PO BID #60 tablet 12/25/17 Chlorthalidone [Hygroton] 12.5 mg PO DAILY #30 tablet 12/25/17 Clopidogrel Bisulfate [Plavix] 75 mg PO BID #30 tablet 12/25/17 Nitroglycerin [Nitrostat] 0.4 mg SUBLINGUAL Q5M PRN #10 tablet 12/25/17 Following Prescrptions Were Given to Patient: Chlorthalidone [Hygroton] 12.5 mg PO DAILY #30 tablet Nitroglycerin [Nitrostat] 0.4 mg SUBLINGUAL Q5M PRN #10 tablet PRN Reason: Angina pain Carvedilol [Coreg (Beta Kaz)] 3.125 mg PO BID #60 tablet Clopidogrel Bisulfate [Plavix] 75 mg PO BID #30 tablet Primary Care Physician: Miguel Galvan MD [Primary Care Provider] - Please follow up with your Primary Care Physician in: within 2 weeks Please Follow Up With: Tyler Sena MD When: in 2 weeks Disposition: Home Minutes spent on discharge:: 40 Patient Condition:: Stable Medical Necessity - Tobacco Use Smoking Status: Never smoker Tobacco Use: Non-smoker Meaningful Use Info Meaningful Use Diagnoses (Choose all that apply): AMI - AMI Aspirin given w/in 24hrs of arrival?: Yes ASA at discharge?: Yes Statins at discharge?: Yes Luan/ARB at discharge?: Yes Beta Kaz at discharge?: Yes Done w/ Acute RI measure.: Yes 12/25/17 1413 <Electronically signed by Kiki Diallo MD> Date Kiki Diallo MD Cosigner Signature (if applicable): Date CC: Miguel Galvan MD; Kiki Diallo MD Signed DISCHARGE INSTRUCTION Observed: 12/25/2017 Status: F Source: [place] 11:29 [facility] REPOSITORY [facility] Medical Records Department [address] [place] [address] Instructions for Home/Discharge Instructions 12/25/17 1123 MR#: [id number] Acct: [id number] Name: DOMINGA TREJO Rep #: [id number] : 1950 67 From: Kiki Diallo MD PCP: Miguel Galvan MD Status: ADM IN - Discharge Diagnoses Current Active Problems: Current Active and Chronic Problems STEMI (ST elevation myocardial infarction) (Acute) HTN (hypertension) (Chronic) HLD (hyperlipidemia) (Chronic) CAD (coronary artery disease) (Chronic) Diabetes mellitus, type II (Chronic) GERD (gastroesophageal reflux disease) (Chronic) Reason(s) for Visit for Discharge Instructions: Chest pain You will use the following diet at home:: Cardiac Your food should be the consistency of: Regular Your liquids should be the consistency of: Regular/Thin Discharge Activity: Return to Normal Activity Additional Instructions: Continue on all your medications. Follow-up closely with cardiology and cardiac rehab. Allergies/Adverse Reactions: Allergies lisinopril Allergy (Verified 12/23/17 05:41) COUGH Medications to take at Discharge Aspirin E.C. [Ecotrin] 81 mg PO DAILY@0800 12/23/17 Atorvastatin Calcium [Lipitor] 80 mg PO QHS 12/23/17 Clopidogrel Bisulfate [Plavix] 75 mg PO DAILY 12/23/17 Lactobacillus Acidophilus [Acidophilus] 1 capsule PO DAILY 12/23/17 Lansoprazole 15 mg PO DAILY 12/23/17 Psyllium [Metamucil] 1 packet PO DAILY 12/23/17 Insulin NPH Hum/Reg Insulin Hm [Novolin 70-30 100 Unit/ml Vial] 15 unit SQ ACHS 12/24/17 Acetaminophen [Tylenol Tablet] 650 mg PO Q6H PRN PRN tablet 12/25/17 Carvedilol [Coreg (Beta Kaz)] 3.125 mg PO BID #60 tablet 12/25/17 Chlorthalidone [Hygroton] 12.5 mg PO DAILY #30 tablet 12/25/17 Clopidogrel Bisulfate [Plavix] 75 mg PO BID #30 tablet 12/25/17 Nitroglycerin [Nitrostat] 0.4 mg SUBLINGUAL Q5M PRN #10 tablet 12/25/17 The following prescriptions were given: Chlorthalidone [Hygroton] 12.5 mg PO DAILY #30 tablet Nitroglycerin [Nitrostat] 0.4 mg SUBLINGUAL Q5M PRN #10 tablet PRN Reason: Angina pain Carvedilol [Coreg (Beta Kaz)] 3.125 mg PO BID #60 tablet Clopidogrel Bisulfate [Plavix] 75 mg PO BID #30 tablet Primary Care Physician: Miguel Galvan MD [Primary Care Provider] - Please follow up with your Primary Care Physician in: within 2 weeks Test Results: Test results from this visit will be discussed in further detail at your follow-up appointment, if applicable. Please Follow Up With: Tyler Sena MD When: in 2 weeks Proposed Discharge Date: 12/25/17 12/25/17 1129 <Electronically signed by Kiki Diallo MD> Date Kiki Diallo MD CC: Miguel Galvan MD; Tyler Sena MD BEDSIDE GLUCOSE Collected: 12/25/2017 Status: F Source: [place] 11:22 AM [facility] REPOSITORY TYPE CODE TESTS RESULT OUT OF REFERENCE UNITS RANGE LAB L501.080 70-110 mg/dL High BEDSIDE GLU 218 Result Comment: MANAGEMENT OF PATIENT CARE PER NURSING PROTOCOL Performed By: #### L501.080 #### [facility] Point of Care [address] [place], [place] [address] BEDSIDE GLUCOSE Collected: 12/25/2017 Status: F Source: [place] 6:52 AM [facility] REPOSITORY TYPE CODE TESTS RESULT OUT OF REFERENCE UNITS RANGE LAB L501.080 70-110 mg/dL High BEDSIDE GLU 113 Result Comment: MANAGEMENT OF PATIENT CARE PER NURSING PROTOCOL Performed By: #### L501.080 #### [facility] Point [facility] Care [address] [place] [address] BASIC METABOLIC Collected: 12/25/2017 Status: F Source: [place] PROFILE (BMP) 6:10 AM [facility] REPOSITORY TYPE CODE TESTS RESULT OUT OF RANGE REFERENCE UNITS LAB L501.0100 74-106 mg/dL Normal GLU 101 Result Comment: Fasting Glucose result from 100 to 125 mg/dL suggests IMPAIRED HOMEOSTASIS per A.D.A. criteria. Please note revised GLUCOSE reference range effective 2017. LAB L501.1000 7-18 mg/dL Normal BUN 12 LAB L501.1100 0.70-1.30 mg/dL Normal CREAT,SERUM 0.99 Result Comment: The validity of the calculated GFR AND GFRAA in patients over 70 years has not been determined. Clinical correlation is essential. LAB L501.1110 >60 mL/min Normal EST GFR 81 Result Comment: Non- GFR Calc LAB L501.1115 >60 mL/min Normal EST GFR - AA 98 Result Comment: GFR Calc LAB L501.1255 ml/min Normal Estimated CRCL 71.97 LAB L501.1300 10-20 RATIO Normal BUN/CRE 12.2 LAB L501.2200 8.5-10 mg/dL Normal .1 CA 8.6 LAB L501.5300 136-14 mmol/L Normal 5 NA 142 LAB L501.5600 3.5-5. mmol/L Normal 1 K 3.6 LAB L501.5900 98-107 mmol/L High CL 108 LAB L501.6100 21.0-3 mmol/L Normal 2.0 CO2 26.0 LAB L501.6200 5-15 Normal GAP 8 Performed By: #### L500.2500 #### [facility] [address] [place], [address] BEDSIDE GLUCOSE Collected: 12/24/2017 Status: F Source: [place] 8:39 PM [facility] REPOSITORY TYPE CODE TESTS RESULT OUT OF REFERENCE UNITS RANGE LAB L501.080 70-110 mg/dL High BEDSIDE GLU 156 Result Comment: MANAGEMENT OF PATIENT CARE PER NURSING PROTOCOL Performed By: #### L501.080 #### [facility] Point of Care [address] [facility] [place] [address] ECHOCARDIOGRAM COMPLETE Observed: 12/24/2017 Status: F Source: [place] 4:38 PM [facility] REPOSITORY [facility] Cardiovascular Services [address] [place] [address] Echo Complete 12/24/17 0912 MR#: [id number] Acct: [id number] Name: DOMINGA TREJO Rep #: [id number] : 1950 67 From: Tyler Sena MD Attending Dr: Kiki Diallo MD Status: ADM IN Ordering Dr: Jazmyn Velez Date: 12/23/17 Location: [facility] Sex: M C Admitted: 12/23/17 Reason For Study: CHEST PAIN Procedure This was a 2D Doppler, Color Flow transthoracic echocardiogram. Exam performed portable in patient room. Left Ventricle Normal size and thickness. The estimated ejection fraction is 65 %. Normal diastology for age. No regional wall motion abnormalities noted. Right Ventricle Normal size and thickness. Normal systolic function. Atria Normal left atrium. Normal right atrium. Normal atrial septum. Mitral Valve The mitral valve is structurally normal. No prolapse or stenosis seen. Tricuspid Valve Normal tricuspid valve. Trivial tricuspid valve insufficiency. Right ventricular systolic pressure estimated to be 31 mmHg. Aortic Valve Trisinus/trileaflet aortic valve. Mild focal aortic valve thickening. Pulmonic Valve Normal pulmonic valve. Great Vessels Normal aortic root. Normal arch. Normal inferior vena cava. Inferior vena cava collapse with respiration. Pericardium/Pleural No pericardial effusion. MMode/2D Measurements AND Calculations LVIDd: 5.0 cm IVSd: 1.1 cm Ao root diam: 3.3 cm LVIDs: 3.6 cm LVPWd: 1.0 cm RVDd: 3.8 cm FS: 29.3 % LAV(MOD-bp): 56.9 ml EDV(MOD-sp4): 118.3 ml EDV(MOD-sp2): 150.9 ml LAV(MOD-bp) Indexed: 28.7 ml/m2 ESV(MOD-sp4): 56.8 ml EF(MOD-sp2): 53.8 % LAV(MOD-sp2): 62.2 ml EF(MOD-sp4): 52.0 % LAV(MOD-sp4): 51.0 ml SV(MOD-sp4): 61.5 ml SV(MOD-sp2): 81.2 ml LA A4 area: 18.0 cm2 LA dimension(2D): 4.0 cm RA A4 area: 15.1 cm2 Time Measurements MV dec time: 0.21 sec Doppler Measurements AND Calculations MV E max cornelio: 69.9 cm/sec Lat Peak E' Cornelio: 14.3 cm/sec Med Peak E' Cornelio: 6.8 cm/sec MV A max cornelio: 58.6 cm/sec E/E' lat: 4.9 E/E' med: 10.3 MV E/A: 1.2 Ao V2 max: 110.1 cm/sec LV V1 max: 86.6 cm/sec PA V2 max: 81.8 cm/sec Ao max P.8 mmHg LV V1 max P.0 mmHg TR max cornelio: 255.3 cm/sec TR max P.1 mmHg Interpretation Summary The estimated ejection fraction is 65 %. Normal diastology for age. Trivial tricuspid valve insufficiency. Right ventricular systolic pressure estimated to be 31 mmHg. There is no comparison study available. Ordering Physician: Jazmyn Velez Referring Physician: MIGUEL GALVAN Performed By: Jessica Flores, JULITA, RVT 12/24/171637 Date Tyler Sena MD CC: Miguel Galvan MD; Kiki Diallo MD; Jazmyn Velez; Tyler Sena MD Date Dictated: 12/24/17911 Date Transcribed: 12/24/171637 Sample Finisher: Signed BEDSIDE GLUCOSE Collected: 12/24/2017 Status: F Source: [place] 4:24 PM [facility] REPOSITORY TYPE CODE TESTS RESULT OUT OF REFERENCE UNITS RANGE LAB L501.080 70-110 mg/dL High BEDSIDE GLU 129 Result Comment: MANAGEMENT OF PATIENT CARE PER NURSING PROTOCOL Performed By: #### L501.080 #### [facility] Point of Care [address] [place], [place] [id number] BEDSIDE GLUCOSE Collected: 12/24/2017 Status: F Source: [place] 11:07 AM [facility] REPOSITORY TYPE CODE TESTS RESULT OUT OF REFERENCE UNITS RANGE LAB L501.080 70-110 mg/dL High BEDSIDE GLU 151 Result Comment: Insulin Given MANAGEMENT OF PATIENT CARE PER NURSING PROTOCOL Performed By: #### L501.080 #### [facility] Point of Care [address] [place] [address] 12 LEAD ELECTROCARDIOGRAM Observed: 12/24/2017 Status: F Source: [place] 10:31 AM [facility] REPOSITORY [facility] Cardiovascular Services [address] [place] [address] 12 Lead EKG 12/23/17 0548 MR#: [id number] Acct: [id number] Name: KELLISALLYDOMINGA Lewis Rep #: [id number] : 1950 67 From: Sony Colbert MD Attending Dr: Kiki Diallo MD Status: ADM IN Ordering Dr: Oli Gregory MD Date: 12/23/17 Location: ICU Sex: M C Admitted: 12/23/17 Test Reason : CP Blood Pressure : / mmHG Vent. Rate : 047 BPM Atrial Rate : 047 BPM P-R Int : 196 ms QRS Dur : 084 ms QT Int : 482 ms P-R-T Axes : 050 032 108 degrees QTc Int : 426 ms Sinus bradycardia Low voltage QRS ST elevation consider inferior injury or acute infarct ACUTE RI / STEMI Consider right ventricular involvement in acute inferior infarct Abnormal ECG Confirmed by FILEMON BOLIVAR, SONY ([id number]), telegraph editor DUTCH JOHNSON ([id number]) on 12/24/2017 10:30:58 AM Referred By: Tyler Sena Confirmed By:SONY COLBERT MD 12/24/17 1031 Date Sony Colbert MD CC: Miguel Galvan MD; Kiki Diallo MD; Tyler Sena MD; Oli Gregory MD Signed 12 LEAD ELECTROCARDIOGRAM Observed: 12/24/2017 Status: F Source: [place] 10:31 AM [facility] REPOSITORY [facility] Cardiovascular Services [address] [place] [address] 12 Lead EKG 12/23/17 0551 MR#: [id number] Acct: [id number] Name: DOMINGA TREJO Rep #: [id number] : 1950 67 From: Sony Colbert MD Attending Dr: Kiki Diallo MD Status: ADM IN Ordering Dr: Oli Gregory MD Date: 12/23/17 Location: ICU Sex: M C Admitted: 12/23/17 Test Reason : CP Blood Pressure : / mmHG Vent. Rate : 049 BPM Atrial Rate : 049 BPM P-R Int : 204 ms QRS Dur : 086 ms QT Int : 442 ms P-R-T Axes : 083 030 110 degrees QTc Int : [address] elevation consider inferior injury or acute infarct ACUTE RI / STEMI Consider right ventricular involvement in acute inferior infarct Abnormal ECG Confirmed by FILEMON BOILVAR, SONY ([id number]), telegraph editor DUTCH JOHNSON ([id number]) on 12/24/2017 10:31:21 AM Referred By: Tyler Sena Confirmed By:SONY COLBERT MD 12/24/17 1031 Date Sony Colbert MD CC: Miguel Galvan MD; Kiki Diallo MD; Tyler Sena MD; Oli Gregory MD Signed BEDSIDE GLUCOSE Collected: 12/24/2017 Status: F Source: [place] 8:31 AM [facility] REPOSITORY TYPE CODE TESTS RESULT OUT OF RANGE REFERENCE UNITS LAB L501.080 70-110 mg/dL Normal BEDSIDE GLU 98 Result Comment: MANAGEMENT OF PATIENT CARE PER NURSING PROTOCOL Performed By: #### L501.080 #### [facility] Point of Care [address] [place] [address] CBC-COMPLETE BLOOD CNT Collected: 12/24/2017 Status: F Source: [place] NO DIFF 5:35 AM [facility] REPOSITORY TYPE CODE TESTS RESULT OUT OF RANGE REFERENCE UNITS LAB L100.1000 4.4-11.0 K/mm3 Normal WBC 7.2 LAB L100.1200 4.6-6.2 M/mm3 Low RBC 4.17 LAB L100.1300 13.0-16.5 g/dl Low HGB 12.7 LAB L100.1400 40-54 % Low HCT 38.0 LAB L100.1500 80-94 fL Normal MCV 91.1 LAB L100.1600 27.0-32.0 pg Normal MCH 30.5 LAB L100.1700 32-36 g/gl Normal MCHC 33.4 LAB L100.1810 11.6-14.6 % Normal RDW CV 13.8 LAB L100.1820 35.1-43.9 fl High RDW SD 45.4 LAB L100.1900 150-450 K/mm3 Low PLT 141 LAB L100.2000 6.2-12.0 fl Normal MPV 10.6 Performed By: #### L100.0500 #### [facility] [address] [place], [address] BASIC METABOLIC Collected: 12/24/2017 Status: F Source: [place] PROFILE (BMP) 5:35 AM [facility] REPOSITORY TYPE CODE TESTS RESULT OUT OF RANGE REFERENCE UNITS LAB L501.0100 74-106 mg/dL High GLU 108 Result Comment: Fasting Glucose result from 100 to 125 mg/dL suggests IMPAIRED HOMEOSTASIS per A.D.A. criteria. Please note revised GLUCOSE reference range effective 2017. LAB L501.1000 7-18 mg/dL Normal BUN 13 LAB L501.1100 0.70-1.30 mg/dL Normal CREAT,SERUM 1.02 Result Comment: The validity of the calculated GFR AND GFRAA in patients over 70 years has not been determined. Clinical correlation is essential. LAB L501.1110 >60 mL/min Normal EST GFR 78 Result Comment: Non- GFR Calc LAB L501.1115 >60 mL/min Normal EST GFR - AA 94 Result Comment: GFR Calc LAB L501.1255 ml/min Normal Estimated CRCL 69.85 LAB L501.1300 10-20 RATIO Normal BUN/CRE 12.7 LAB L501.2200 8.5-10 mg/dL Low .1 CA 8.2 LAB L501.5300 136-14 mmol/L Normal 5 NA 143 LAB L501.5600 3.5-5. mmol/L Low 1 K 3.3 LAB L501.5900 98-107 mmol/L Normal CL 107 LAB L501.6100 21.0-3 mmol/L Normal 2.0 CO2 26.0 LAB L501.6200 5-15 Normal GAP 10 Performed By: #### L500.2500, L500.4100 #### [facility] [address] [place], [place], [id number] LIPID PROFILE Collected: 12/24/2017 Status: F Source: [place] 5:35 AM [facility] REPOSITORY TYPE CODE TESTS RESULT OUT OF RANGE REFERENCE UNITS LAB L501.4900 200 mg/dL Normal CHOL 99 Result Comment: <200 mg/dL Desirable 200-240 mg/dL Borderline >240 mg/dL High Risk LAB L501.5000 mg/dL Normal TRIG 125 Result Comment: The drugs N-Acetylcysteine and Metamizole may falsely depress this assay. Serum Triglycerides Reference Interval Normal <150 mg/dL Borderline high 150 - 199 mg/dL High 200 - 499 mg/dL Very High > or = 500 mg/dL LAB L501.6400 mg/dL Low HDL 24 Result Comment: The drugs N-Acetylcysteine and Metamizole may falsely depress this assay. Reference Range HDL <40 mg/dL Low HDL Cholesterol HDL >or= 60 mg/dL High HDL Cholesterol LAB L501.6500 0-130 mg/dL Normal LDL 50 LAB L501.6600 5-40 mg/dL Normal VLDL 25 Performed By: #### L500.2500, L500.4100 #### [facility] [address] [place], [place], [id number] BEDSIDE GLUCOSE Collected: 12/23/2017 Status: F Source: [place] 10:00 PM [facility] REPOSITORY TYPE CODE TESTS RESULT OUT OF REFERENCE UNITS RANGE LAB L501.080 70-110 mg/dL High BEDSIDE GLU 164 Result Comment: MANAGEMENT OF PATIENT CARE PER NURSING PROTOCOL Performed By: #### L501.080 #### [facility] Point of Care [address] [facility] [place], [place] [id number] BEDSIDE GLUCOSE Collected: 12/23/2017 Status: F Source: [place] 5:02 PM [facility] REPOSITORY TYPE CODE TESTS RESULT OUT OF REFERENCE UNITS RANGE LAB L501.080 70-110 mg/dL High BEDSIDE GLU 120 Result Comment: MANAGEMENT OF PATIENT CARE PER NURSING PROTOCOL Performed By: #### L501.080 #### [facility] Point of Care [address] [place], [place] [id number] TROPONIN-I Collected: 12/23/2017 Status: F Source: [place] 3:45 PM [facility] REPOSITORY Order Comment: 'TROP' Serial specimen #1, #2 or #3: 3 TYPE CODE TESTS RESULT OUT OF RANGE REFERENCE UNITS LAB L501.4010 <0.045 ng/mL High alert 4.760 TROPONIN-I Result Comment: Critical Result(s) Called at: 16:21:14 12/23/2017 by: MARIAELENA VARMA TROPONIN-I EXPECTED VALUES <0.045 Negative 0.045 - 0.590 Consistent with Cardiac Damage > OR = 0.600 Critical Value Not every elevated troponin is indicative of RI. These values should be used with clinical judgement in examining the patient's clinical picture for diagnosis. To establish a diagnosis of RI versus myocardial injury, there must be a demonstrated rise and/or fall in the troponin values, in addition to ischemic symptoms, EKG changes, new regional wall motion abnormality, and/or angiographical evidence. PLEASE NOTE: REFERENCE RANGES EDITED 17 Performed By: #### L501.4010 #### [facility] [address] [place], [place], [id number] BEDSIDE GLUCOSE Collected: 12/23/2017 Status: F Source: [place] 11:23 AM [facility] REPOSITORY TYPE CODE TESTS RESULT OUT OF REFERENCE UNITS RANGE LAB L501.080 70-110 mg/dL High BEDSIDE GLU 117 Result Comment: MANAGEMENT OF PATIENT CARE PER NURSING PROTOCOL Performed By: #### L501.080 #### [facility] Point of Care [address] [place], [place] [address] TROPONIN-I Collected: 12/23/2017 Status: F Source: [place] 9:47 AM [facility] REPOSITORY Order Comment: 'TROP' Serial specimen #1, #2 or #3: 1 TYPE CODE TESTS RESULT OUT OF RANGE REFERENCE UNITS LAB L501.4010 <0.045 ng/mL High alert 1.060 TROPONIN-I Result Comment: Critical Result(s) Called at: 10:29:06 12/23/2017 by: Patricia Varma TROPONIN-I EXPECTED VALUES <0.045 Negative 0.045 - 0.590 Consistent with Cardiac Damage > OR = 0.600 Critical Value Not every elevated troponin is indicative of RI. These values should be used with clinical judgement in examining the patient's clinical picture for diagnosis. To establish a diagnosis of RI versus myocardial injury, there must be a demonstrated rise and/or fall in the troponin values, in addition to ischemic symptoms, EKG changes, new regional wall motion abnormality, and/or angiographical evidence. PLEASE NOTE: REFERENCE RANGES EDITED 17 Performed By: #### L501.4010 #### [facility] [address] [place], [address] ACT ACTIVATED CLOTTING Collected: 12/23/2017 Status: F Source: [place] TIME 9:29 AM [facility] REPOSITORY TYPE CODE TESTS RESULT OUT OF RANGE REFERENCE UNITS LAB L9100.0100 74-137 sec High ACTk CLOT 147 TIME Performed By: #### L9100.0100 #### [facility] Point of Care [address] [place] [address] ACT ACTIVATED CLOTTING Collected: 12/23/2017 Status: F Source: [place] TIME 7:21 AM [facility] REPOSITORY TYPE CODE TESTS RESULT OUT OF RANGE REFERENCE UNITS LAB L9100.0100 74-137 sec High ACTk CLOT 208 TIME Performed By: #### L9100.0100 #### [facility] Point of Care [address] [place] [address] EMERGENCY DEPARTMENT Observed: 12/23/2017 Status: F Source: [place] SUMMARY 6:40 AM [facility] REPOSITORY [facility] Medical Records Department [address] [place] [address] Emergency Department Summary 12/23/17 0606 MR#: [id number] Acct: [id number] Name: DOMINGA TREJO Rep #: [id number] : 1950 67 From: Oli Gregory MD PCP: Miguel Galvan MD Status: ADM IN - ER Visit Summary Date of Service: 12/23/17 Chief Complaint: Acute chest pain History of Present Illness: The patient is a 67 M history of coronary disease with 6 prior cardiac stents. The most recent placed in 2014. Patient also has a history of high blood pressure, high cholesterol, reflux and insulin-dependent diabetes. Patient states that around 2:30 this morning he awoke with chest pressure in the midsternal region. With pain radiating to his left arm. States this has been constant. The nitroglycerin he had at home the prescription is old so he did not take any. He did take his normal Plavix on Saturday. And he takes daily baby aspirin. He denies shortness of breath. He denies vomiting or diarrhea. No melena. No prior DVT or PE. No recent travel, surgery or hospitalization. Physical Examination: Initial blood pressure 130/118. Heart rates 45. Pulse ox 98% on room air no hypoxia. H EENT exam unremarkable. Neck nontender. Lungs clear to auscultation bilaterally. Heart bradycardic rate about 50 no murmur. Chest wall nontender. But he is diaphoretic. Abdomen soft and nontender. Normal bowel sounds. No peritoneal signs. Patient is moving all 4 extremities. They are neurovascularly intact. 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 Normal dorsi and plantar flexion. Equal and symmetrical radial pulses. Neurologically he is awake and alert with no focal motor deficits. Test Results: Patient's initial EKG shows an acute inferior RI with ST elevation in leads 2, 3 and aVF. He has bradycardic with a rate of 49. He has ST depression in leads V1 through V6 and also 1 and aVL. CBC shows a white count of 13.7. Hemoglobin of 14. Electrolytes show potassium of 3.0. Creatinine of 1.2. Normal gap. PT and PTT are all normal. Troponin is normal less than 0.015. Chest x-ray shows a normal cardiac silhouette mediastinum. No acute abnormality. Read by the radiologist and myself. Emergency Department Course and Treatment: A STEMI team was called shortly after the patient's arrival and immediately after his EKG was done. I have already spoken to Dr. Odell Sena the microarray operations vice president who is on his way in as is the cardiac catheterization team. Patient will be given 324 of aspirin. Started on a heparin bolus and drip. He is currently receiving a liter of normal saline. A second IV has been placed. Patient is already consented for the cardiac catheterization and intervention as needed. Patient did become hypotensive and was started on a liter of normal saline. His heart rate is improving and is currently 65. Treatment Plan: Once the cardiac catheterization team and microarray operations vice president arrive the patient will be taken immediately to the [facility]. Disposition: admit Impression: Acute inferior RI Acute bradycardia and hypotension History of prior CAD with 6 cardiac stents. History of insulin-dependent diabetes, hypertension and high cholesterol. This note was generated with Coloraderdamation software. It may contain incorrect words, spelling, and punctuation that were not noted in review of the chart prior to signing ED Disposition - Plan for ED Patient: Chief Complaint: Chest Pain What to do if you have Problems For any increased pain, shortness of breath, bleeding, nausea or vomiting, chest pain, or any unexpected problems, contact your Primary Care Provider. Call [facility] ([phone]) or report to the closest Emergency Room. Call 911 if necessary. 12/23/17639 <Electronically signed by Oli Gregory MD> Date Oli Gregory MD Cosigner Signature (If Indicated): Date CC: Miguel Galvan MD ACT ACTIVATED CLOTTING Collected: 12/23/2017 Status: F Source: [place] TIME 6:36 AM [facility] REPOSITORY TYPE CODE TESTS RESULT OUT OF RANGE REFERENCE UNITS LAB L9100.0100 74-137 sec High ACTk CLOT 224 TIME Performed By: #### L9100.0100 #### [facility] Point of Care [address] [place] [address] HISTORY AND PHYSICAL Observed: 12/23/2017 Status: F Source: [place] EXAM 6:21 AM [facility] REPOSITORY [facility] Medical Records Department [address] [place] [address] History and Physical 12/23/17 06 MR#: [id number] Acct: [id number] Name: DOMINGA TREJO Rep #: [id number] : 1950 67 From: Jazmyn Velez PCP: Miguel Galvan MD Status: ADM IN Y Location: ICU [place] [address] Problem List (1) STEMI (ST elevation myocardial infarction) Status: Acute Qualifiers: Involved coronary artery: unspecified coronary artery Qualified Code(s): I21.3 - ST elevation (STEMI) myocardial infarction of unspecified site (2) HTN (hypertension) Status: Chronic Qualifiers: Hypertension type: essential hypertension Qualified Code(s): I10 - Essential (primary) hypertension (3) HLD (hyperlipidemia) Status: Chronic Qualifiers: Hyperlipidemia type: pure hypercholesterolemia Qualified Code(s): E78.00 - Pure hypercholesterolemia, unspecified; E78.0 - Pure hypercholesterolemia (4) CAD (coronary artery disease) Status: Chronic Qualifiers: Coronary Disease-Associated Artery/Lesion type: unspecified vessel or lesion type [place] vs. transplanted heart: unspecified whether [place] or transplanted heart Associated angina: angina presence unspecified Qualified Code(s): I25.10 - Atherosclerotic heart disease of [place] coronary artery without angina pectoris (5) Diabetes mellitus, type II Status: Chronic Qualifiers: Diabetes mellitus retirement insulin use: without retirement use Diabetes mellitus complication status: with unspecified complications Qualified Code(s): E11.8 - Type 2 diabetes mellitus with unspecified complications (6) GERD (gastroesophageal reflux disease) Status: Chronic Qualifiers: Esophagitis presence: esophagitis presence not specified Qualified Code(s): K21.9 - Gastro-esophageal reflux disease without esophagitis History of Present Illness Date of Admission: 12/23/17 Chief Complaint: Chest pain The patient is a 67 y/o M w/ PMHx: CAD s/p PCI x 6, HTN, HLD, GERD, Diabetes mellitus type II who presents to the [facility] ED on 12/23/17 with history of onset midsternal chest pressure, described as tightness with radiation to his BL UE with no associated dyspnea, nausea, emesis or diaphoresis while laying in bed, rated initially 10/10 and improving while in the ED to 8/10; however, continued discomfort to his BL UE, noting initially more uncomfortable in his LUE and then transitioning to his RUE. In the ED STEMI called upon EKG being obtained w/ noted ST elevations II, III and aVF. Cardiology consulted per ED and patient administered 81 mg po x 4 with noted compliance with his plavix regimen therefore heparin bolus and additional antiplt load deferred per Cardiology. Additional work-up in the ED included T 98.3, HR 45-->60, BP 130/118-->93/64, RR 17, 98% on RA, CBC w/ WBC 13.7, Hgb 14.5, Plts 220 with L shift, pending coags, pending BMP, pending trop upon evaluation, CXR without acute findings. Past Medical History Past Medical History (Chronic Problems): Chronic Problems HTN (hypertension) (Chronic) HLD (hyperlipidemia) (Chronic) CAD (coronary artery disease) (Chronic) Diabetes mellitus, type II (Chronic) GERD (gastroesophageal reflux disease) (Chronic) Allergies lisinopril Allergy (Verified 12/23/17 05:41) COUGH Home Medications: Ambulatory Orders Medication Instructions Recorded Aspirin E.C. [Ecotrin] 81 mg PO DAILY@0800 12/23/17 Surgical History: - - PCI x 6, appendectomy, eye surgery in youth. Psychiatric History: Depression Lives: Alone Smoking Status: Never smoker Tobacco Use: Non-smoker Alcohol: None Drugs: None - *Family History Maternal History Items: - - Patient denies any marked maternal or paternal family history of heart disease, diabetes, cancer. Paternal History Items: - - Patient denies any marked maternal or paternal family history of heart disease, diabetes, cancer. Review of Systems Constitutional: Denies: Chills, Fever, Weight Change HEENT: Denies: Head Aches, Sinus Congestion, Sinus Drainage Cardiovascular: Reports: Chest Pain, Chest Pressure, Chest Tightness. Denies: Light Headedness, Orthopnea, Palpitations Respiratory: Denies: Cough, Shortness of breath at rest, Sputum production Gastrointestinal: Denies: Abdominal Pain, Nausea, Vomiting Genitourinary: Denies: Dysuria Musculoskeletal: Reports: Arm Pain. Denies: Joint Pain, Joint Tenderness Skin: Denies: Rash, Wounds Neurological: Denies: Numbness, Tingling, Focal weakness Psychiatric: Reports: Depression. Denies: Anxiety, Homicidal Ideations, Suicidal Ideations Hematologic/ Lymphatic: Reports: Easy Bruising, Easy Bleeding VTE Information - Inpt Only VTE Present on Admission: No VTE Mechan Device Prophylaxis: SCD's VTE Pharm Prophylaxis ordered?: Yes Patient Problems: Active and Suspected Problems STEMI (ST elevation myocardial infarction) (Acute) Subjective: Seated upright in the ED bed, fatigued appearance, uncomfortable appearing, notes ongoing pain to the BL UE currently, chest midsternal pressure lessening. Objective: Physical Examination: General: awake, alert, oriented x 3 and cooperative, seated upright in the ED bed, notes uncomfortable. Skin: normal color, turgor, no icterus, cyanosis. HEENT: AT/NC, EOMI, PERRLA, MMM, no carotid bruits or JVD noted. Lungs: CTA bilaterally, moderate effort, mild decrease BL bases, no rales, ronchi or wheezing. Heart: Regular rate and rhythm; no gallop, rub audible. Abdomen: soft, overweight, TTP, ND, normal BS, no HSM. Extremities: no cyanosis, clubbing, or edema. Neurological: patient awake, alert, oriented x 3; cognitive function intact; pupils equally reactive to light and accomodation; cranial nerves II-XII grossly normal, moving all 4 extremities, no focal deficits, strength moderately globally decreased secondary to acute presentation. Psychiatric: affect appears anxious, no acute evidence of depressive feelings. - Physical Exam Vital Signs Temp Pulse Resp BP Pulse Ox 98.3 F 45 L 17 130/118 H 98 12/23/17 05:38 12/23/17 05:38 12/23/17 05:38 12/23/17 05:38 12/23/17 05:38 Oxygen Delivery Method Room Air Weight: 186 lb 4.65 oz Body Mass Index (BMI) 28.3 Laboratory Tests Past 24 Hrs WBC Pending RBC Pending Hgb Pending Hct Pending Assessment/Plan All Active Problems STEMI (ST elevation myocardial infarction) (Acute) The patient is a 67 y/o M w/ PMHx: CAD s/p PCI x 6, HTN, HLD, GERD, Diabetes mellitus type II who presents to the [facility] ED on 12/23/17 with history of onset midsternal chest pressure, described as tightness with radiation to his BL UE with no associated dyspnea, nausea, emesis or diaphoresis while laying in bed, rated initially 10/10 and improving while in the ED to 8/10; however, continued discomfort to his BL UE, noting initially more uncomfortable in his LUE and then transitioning to his RUE. (1) Chest Pain w/ Acute STEMI: EKG in ED w/ Inferior STEMI w/ ST elevation II, III, aVF, CXR w/ no acute process. Trop pending upon evaluation. Transitioning now to the cardiac catheterization lab per Cardiology direction. Following intervention, if appropriate, will transition to the ICU, maintain on a monitored bed, continue serial cardiac enzymes and EKGs. Obtain magnesium level upon admission. Continue medical management w/ asa, plavix unless transitioned to Brillinta per Cardiology discretion, BB, statin w/ AM FLP. ECHO ordered. ASA, NG, morphine. (2) CAD: s/p RI w/ PCI x 6, continue home regimen asa, plavix unless transitioned to Brillinta per Cardiology, statin, BB. (3) Diabetes mellitus type II: Not on regimen, obtain HgBA1c, nutrition consultation for education and teaching, once off cardiac catheterization bedrest initiate ADA diet, accu checks w/ ISS. (4) Hypertension: Continue home regimen including Coreg, chlorthalidone although will defer to cardiology for regimen alterations, PRN hydralazine. (5) Hyperlipidemia: Continue home statin regimen. AM FLP. (6) GERD: PPI. (7) DVT Prophylaxis: SCDs, start lovenox 12/24/17. Code Visit Inpatient E AND M: 21532 Init Hosp L3 12/23/17 0621 <Electronically signed by Jazmyn Velez > Date Jazmyn eVlez Cosigner Signature: Date (if applicable) CC: Miguel Galvan MD; Jazmyn Velez Signed CBC W/DIFF, AUTOMATED Collected: 12/23/2017 Status: F Source: [place] 5:58 AM [facility] REPOSITORY TYPE CODE TESTS RESULT OUT OF RANGE REFERENCE UNITS LAB L100.1000 4.4-11.0 K/mm3 High WBC 13.7 LAB L100.1200 4.6-6.2 M/mm3 Normal RBC 4.77 LAB L100.1300 13.0-16.5 g/dl Normal HGB 14.5 LAB L100.1400 40-54 % Normal HCT 42.6 LAB L100.1500 80-94 fL Normal MCV 89.3 LAB L100.1600 27.0-32.0 pg Normal MCH 30.4 LAB L100.1700 32-36 g/gl Normal MCHC 34.0 LAB L100.1810 11.6-14.6 % Normal RDW CV 13.5 LAB L100.1820 35.1-43.9 fl High RDW SD 44.2 LAB L100.1900 150-450 K/mm3 Normal PLT 220 LAB L100.2000 6.2-12.0 fl Normal MPV 10.5 LAB L100.2100 47-70 % High NEUT% 73.6 LAB L100.2200 19-41 % Low LY% 18.0 LAB L100.2300 0-10 % Normal MONO% 6.7 LAB L100.2400 0-5 % Normal EO% 1.2 LAB L100.2500 0-1 % Normal BASO% 0.2 LAB L100.2550 0.0-0.9 % Normal IM GRAN % 0.300 Result Comment: IG% - Immature Granulocytes (promyelocytes, myelocytes and metamyelocytes) > 1% indicates that a LEFT SHIFT is Present. LAB L100.2620 2.0-7.7 X10 3/uL High Absolute Neut 10.1 LAB L100.2720 0.83-4.51 X10 3/ul Normal Absolute Lymph 2.46 Performed By: #### L100.0100 #### [facility] [address] [place], [place], [address] PROTHROMBIN TIME W/INR Collected: 12/23/2017 Status: F Source: [place] 5:58 AM [facility] REPOSITORY TYPE CODE TESTS RESULT OUT OF RANGE REFERENCE UNITS LAB L300.4150 11.7-14.9 SECONDS Normal PROTIME 13.0 LAB L300.4200 Normal INR 1.0 Performed By: #### L300.3900, L300.4310 #### [facility] [address] [place], [address] PARTIAL THROMBOPLAST Collected: 12/23/2017 Status: F Source: [place] TIME 5:58 AM [facility] REPOSITORY TYPE CODE TESTS RESULT OUT OF RANGE REFERENCE UNITS LAB L300.4310 24.1-36.2 Seconds Normal PTT 31.9 Performed By: #### L300.3900, L300.4310 #### [facility] [address] [place], [address] BASIC METABOLIC Collected: 12/23/2017 Status: F Source: [place] PROFILE (BMP) 5:58 AM [facility] REPOSITORY TYPE CODE TESTS RESULT OUT OF RANGE REFERENCE UNITS LAB L501.0100 74-106 mg/dL Normal GLU 95 Result Comment: Please note revised GLUCOSE reference range effective 2017. LAB L501.1000 7-18 mg/dL Normal BUN 13 LAB L501.1100 0.70-1.30 mg/dL Normal CREAT,SERUM 1.20 Result Comment: The validity of the calculated GFR AND GFRAA in patients over 70 years has not been determined. Clinical correlation is essential. LAB L501.1110 >60 mL/min Normal EST GFR 65 Result Comment: Non- GFR Calc LAB L501.1115 >60 mL/min Normal EST GFR - AA 78 Result Comment: GFR Calc LAB L501.1255 ml/min Normal Estimated CRCL 59.38 LAB L501.1300 10-20 RATIO Normal BUN/CRE 10.8 LAB L501.2200 8.5-10 mg/dL Normal .1 CA 8.9 LAB L501.5300 136-14 mmol/L Normal 5 NA 142 LAB L501.5600 3.5-5. mmol/L Low 1 K 3.0 LAB L501.5900 98-107 mmol/L Normal CL 104 LAB L501.6100 21.0-3 mmol/L Normal 2.0 CO2 29.0 LAB L501.6200 5-15 Normal GAP 9 Performed By: #### L500.2500, L501.4010 #### [facility] [address] [place], [address] TROPONIN-I Collected: 12/23/2017 Status: F Source: [place] 5:58 AM [facility] REPOSITORY TYPE CODE TESTS RESULT OUT OF RANGE REFERENCE UNITS LAB L501.4010 <0.045 ng/mL Normal < 0.015 TROPONIN-I Result Comment: TROPONIN-I EXPECTED VALUES <0.045 Negative 0.045 - 0.590 Consistent with Cardiac Damage > OR = 0.600 Critical Value Not every elevated troponin is indicative of RI. These values should be used with clinical judgement in examining the patient's clinical picture for diagnosis. To establish a diagnosis of RI versus myocardial injury, there must be a demonstrated rise and/or fall in the troponin values, in addition to ischemic symptoms, EKG changes, new regional wall motion abnormality, and/or angiographical evidence. PLEASE NOTE: REFERENCE RANGES EDITED 17 Performed By: #### L500.2500, L501.4010 #### [facility] [address] [place], [address] MAGNESIUM Collected: 12/23/2017 Status: F Source: [place] 5:58 AM [facility] REPOSITORY TYPE CODE TESTS RESULT OUT OF RANGE REFERENCE UNITS LAB L501.5200 1.6-2.6 mg/dL Normal MG 2.1 Performed By: #### L501.5200 #### [facility] [address] [place], [address] HEMOGLOBIN A1C Collected: 12/23/2017 Status: F Source: [place] 5:58 AM [facility] REPOSITORY TYPE CODE TESTS RESULT OUT OF RANGE REFERENCE UNITS LAB L501.9985 4.2-6.3 % Normal HGB A1C 6.1 Performed By: #### L501.9985 #### [facility] [address] [place], [address] CHEST 1 VIEW Observed: 12/23/2017 Status: F Source: [place] (PORTABLE) 5:39 AM [facility] REPOSITORY [facility] Imaging Services [address] [place] [address] Chest 1 View (Portable) MR#: [id number] Acct: [id number] Name: DOMINGA TREJO Rep #: [id number] : 1950 M 67 From: Ramandeep Saunders MD PCP: Miguel Galvan MD Status: REG ER Study: Chest 1 View (Portable) Date of Exam: 12/23/17 Exam# [id number] Ordering Dr: Oli Gregory MD STUDY: X-RAY CHEST REASON FOR EXAM: Male, 67 years old. STEMI alert, chest pain TECHNIQUE: Single AP portable view of the chest. COMPARISON: None. FINDINGS: The lungs are clear and expanded. There is no demonstrated pleural abnormality. Normal size heart. Normal mediastinum and malcolm. Normal visualized pulmonary arteries. Normal visualized aortic arch and descending thoracic aorta. Normal visualized thoracic spine. Normal visualized ribs, clavicles, and shoulders. There is no demonstrated abnormality of the visualized soft tissue structures of the upper abdomen. RAD/Chest 1 View (Portable) IMPRESSION: Normal x-ray examination of the chest. Electronically Signed: Ramandeep Saunders MD at 6:10 EDT , Service support , CC: Miguel Galvan MD; Oli Gregory MD Sample Finisher: Signed LIPID PROFILE Collected: 12/05/2017 Status: F Source: [place] 11:01 AM [facility] REPOSITORY TYPE CODE TESTS RESULT OUT OF RANGE REFERENCE UNITS LAB L501.4900 200 mg/dL Normal CHOL 136 Result Comment: <200 mg/dL Desirable 200-240 mg/dL Borderline >240 mg/dL High Risk LAB L501.5000 mg/dL High TRIG 260 Result Comment: The drugs N-Acetylcysteine and Metamizole may falsely depress this assay. Serum Triglycerides Reference Interval Normal <150 mg/dL Borderline high 150 - 199 mg/dL High 200 - 499 mg/dL Very High > or = 500 mg/dL LAB L501.6400 mg/dL Low HDL 32 Result Comment: The drugs N-Acetylcysteine and Metamizole may falsely depress this assay. Reference Range HDL <40 mg/dL Low HDL Cholesterol HDL >or= 60 mg/dL High HDL Cholesterol LAB L501.6500 0-130 mg/dL Normal LDL 52 LAB L501.6600 5-40 mg/dL High VLDL 52 Performed By: #### L500.4100 #### [facility] [address] [place], [address] CBC W/DIFF, AUTOMATED Collected: 12/04/2017 Status: F Source: [place] 2:16 PM [facility] REPOSITORY Order Comment: DR.DEO CHANCE THE CMP PHOS VITD PTH DR. MANDY CHANCE [facility] CBCD CMP A1C TSH TYPE CODE TESTS RESULT OUT OF RANGE REFERENCE UNITS LAB L100.1000 4.4-11.0 K/mm3 Normal WBC 5.8 LAB L100.1200 4.6-6.2 M/mm3 Normal RBC 5.11 LAB L100.1300 13.0-16.5 g/dl Normal HGB 15.3 LAB L100.1400 40-54 % Normal HCT 46.4 LAB L100.1500 80-94 fL Normal MCV 90.8 LAB L100.1600 27.0-32.0 pg Normal MCH 29.9 LAB L100.1700 32-36 g/gl Normal MCHC 33.0 LAB L100.1810 11.6-14.6 % Normal RDW CV 13.6 LAB L100.1820 35.1-43.9 fl High RDW SD 45.2 LAB L100.1900 150-450 K/mm3 Normal PLT 151 LAB L100.2000 6.2-12.0 fl Normal MPV 11.3 LAB L100.2100 47-70 % Normal NEUT% 63.7 LAB L100.2200 19-41 % Normal LY% 26.7 LAB L100.2300 0-10 % Normal MONO% 7.2 LAB L100.2400 0-5 % Normal EO% 1.9 LAB L100.2500 0-1 % Normal BASO% 0.3 LAB L100.2550 0.0-0.9 % Normal IM GRAN % 0.200 Result Comment: IG% - Immature Granulocytes (promyelocytes, myelocytes and metamyelocytes) > 1% indicates that a LEFT SHIFT is Present. LAB L100.2620 2.0-7.7 X10 3/uL Normal Absolute Neut 3.7 LAB L100.2720 0.83-4.51 X10 3/ul Normal Absolute Lymph 1.56 Performed By: #### L100.0100 #### [facility] [address] [place], [address] HEMOGLOBIN A1C Collected: 12/04/2017 Status: F Source: [place] 2:16 PM [facility] REPOSITORY Order Comment: DR.DEO CHANCE [facility] PHOS VITD PTH DR. MANDY CHANCE [facility] CBCD CMP A1C TSH TYPE CODE TESTS RESULT OUT OF RANGE REFERENCE UNITS LAB L501.9985 4.2-6.3 % High HGB A1C 6.4 Performed By: #### L501.9985 #### [facility] [address] [place], [place], [id number] VITAMIN D,25 HYDROXY Collected: 12/04/2017 Status: F Source: [place] 2:16 PM [facility] REPOSITORY Order Comment: DR.DEO CHANCE [facility] PHOS VITD PTH DR. MANDY CHANCE [facility] CBCD [facility] A1C TSH TYPE CODE TESTS RESULT OUT OF RANGE REFERENCE UNITS LAB L506.1000 29.95-100.01 ng/mL Normal Vitamin D 41.3 25-OH Result Comment: Vitamin D 25(OH) Status Range Deficiency <20 ng/mL (50nmol/L) Insuffciency 20 - 30 ng/mL (50 - 75 nmol/L) Sufficiency 30 - 100 ng/mL (75 - 250 nmol/L) Toxicity >100 ng/mL (>250 nmol/L) Performed By: #### L506.1000 #### [facility] [address] [place], [address] PTHIN Collected: 12/04/2017 Status: F Source: [place] 2:16 PM [facility] REPOSITORY Order Comment: DR.DEO CHANCE [facility] PHOS VITD PTH DR. MANDY CHANCE [facility] CBCD CMP A1C TSH TYPE CODE TESTS RESULT OUT OF RANGE REFERENCE UNITS LAB L509.1000 18.4-80.1 pg/mL Normal PTHIN 38.6 Performed By: #### L509.1000 #### [facility] [address] [place], [address] COMPREHENSIVE METABOLIC Collected: 12/04/2017 Status: F Source: [place] PAEZ 2:16 PM [facility] REPOSITORY Order Comment: DR.DEO CHANCE THE CMP PHOS VITD PTH DR. MANDY CHANCE [facility] CBCD CMP A1C TSH TYPE CODE TESTS RESULT OUT OF RANGE REFERENCE UNITS LAB L501.0100 74-106 mg/dL Low GLU 64 Result Comment: Please note revised GLUCOSE reference range effective 2017. LAB L501.1000 7-18 mg/dL Normal BUN 12 LAB L501.1100 0.70-1.30 mg/dL Normal CREAT,SERUM 1.12 Result Comment: The validity of the calculated GFR AND GFRAA in patients over 70 years has not been determined. Clinical correlation is essential. LAB L501.1110 >60 mL/min Normal EST GFR 70 Result Comment: Non- GFR Calc LAB L501.1115 >60 mL/min Normal EST GFR - AA 85 Result Comment: GFR Calc LAB L501.1300 10-20 RATIO Normal BUN/CRE 10.7 LAB L501.1500 6.4-8.2 g/dL T Normal PROT 6.8 LAB L501.1800 3.2-5.0 g/dL Normal ALB 3.5 LAB L501.1950 2.2-4.2 g/dL Normal GLOB 3.3 LAB L501.2000 0.9-2.4 RATIO Normal A/G 1.1 LAB L501.2200 8.5-10.1 mg/dL CA Normal 8.6 LAB L501.4100 15-37 U/L Normal AST 22 LAB L501.4305 45-117 U/L Normal ALK P 96 LAB L501.4405 16-61 U/L Normal ALT 19 LAB L501.4600 0.20-1.00 mg/dL T Normal BILI 0.70 LAB L501.5300 136-145 mmol/L NA Normal 137 LAB L501.5600 3.5-5.1 mmol/L K Normal 3.5 LAB L501.5900 98-107 mmol/L CL Normal 104 LAB L501.6100 21.0-32.0 mmol/L Normal CO2 29.0 LAB L501.6200 5-15 Low GAP 4 Performed By: #### L500.4050, L500.4100, L501.2300, L501.9520 #### [facility] [address] [place], [address] LIPID PROFILE Collected: 12/04/2017 Status: F Source: [place] 2:16 PM [facility] REPOSITORY Order Comment: DR.DEO CHANCE THE CMP PHOS VITD PTH DR. MANDY CHANCE [facility] CBCD CMP A1C TSH TYPE CODE TESTS RESULT OUT OF RANGE REFERENCE UNITS LAB L501.4900 200 mg/dL Normal CHOL 142 Result Comment: <200 mg/dL Desirable 200-240 mg/dL Borderline >240 mg/dL High Risk LAB L501.5000 mg/dL Normal TRIG 193 Result Comment: The drugs N-Acetylcysteine and Metamizole may falsely depress this assay. Serum Triglycerides Reference Interval Normal <150 mg/dL Borderline high 150 - 199 mg/dL High 200 - 499 mg/dL Very High > or = 500 mg/dL LAB L501.6400 mg/dL Low HDL 36 Result Comment: The drugs N-Acetylcysteine and Metamizole may falsely depress this assay. Reference Range HDL <40 mg/dL Low HDL Cholesterol HDL >or= 60 mg/dL High HDL Cholesterol LAB L501.6500 0-130 mg/dL Normal LDL 67 LAB L501.6600 5-40 mg/dL Normal VLDL 39 Performed By: #### L500.4050, L500.4100, L501.2300, L501.9520 #### [facility] [address] [place], [address] PHOSPHORUS Collected: 12/04/2017 Status: F Source: [place] 2:16 PM [facility] REPOSITORY Order Comment: DR.DEO CHANCE THE CMP PHOS VITD PTH DR. MANDY CHANCE ERICK CBCD CMP A1C TSH TYPE CODE TESTS RESULT OUT OF RANGE REFERENCE UNITS LAB L501.2300 2.5-4.9 mg/dL Normal PHOS 3.3 Performed By: #### L500.4050, L500.4100, L501.2300, L501.9520 #### [facility] [address] [place], [address] THYROID STIM HORMONE Collected: 12/04/2017 Status: F Source: [place] (TSH) 2:16 PM [facility] REPOSITORY Order Comment: DR.DEO CHANCE THE CMP PHOS VITD PTH DR. MANDY CHANCE ERICK CBCD CMP A1C TSH TYPE CODE TESTS RESULT OUT OF RANGE REFERENCE UNITS LAB L501.9520 0.358-3.74 uIU/mL Normal TSH 1.46 Performed By: #### L500.4050, L500.4100, L501.2300, L501.9520 #### [facility] [address] [place], [address] CBC W/DIFF, AUTOMATED Collected: 07/11/2017 Status: F Source: [place] 1:31 PM [facility] REPOSITORY TYPE CODE TESTS RESULT OUT OF RANGE REFERENCE UNITS LAB L100.1000 4.4-11.0 K/mm3 Normal WBC 7.1 LAB L100.1200 4.6-6.2 M/mm3 Normal RBC 4.64 LAB L100.1300 13.0-16.5 g/dl Normal HGB 14.6 LAB L100.1400 40-54 % Normal HCT 42.0 LAB L100.1500 80-94 fL Normal MCV 90.5 LAB L100.1600 27.0-32.0 pg Normal MCH 31.5 LAB L100.1700 32-36 g/gl Normal MCHC 34.8 LAB L100.1810 11.6-14.6 % Normal RDW CV 13.6 LAB L100.1820 35.1-43.9 fl High RDW SD 44.9 LAB L100.1900 150-450 K/mm3 Normal PLT 157 LAB L100.2000 6.2-12.0 fl Normal MPV 10.9 LAB L100.2100 47-70 % Normal NEUT% 69.6 LAB L100.2200 19-41 % Normal LY% 23.1 LAB L100.2300 0-10 % Normal MONO% 6.1 LAB L100.2400 0-5 % Normal EO% 0.7 LAB L100.2500 0-1 % Normal BASO% 0.4 LAB L100.2550 0.0-0.9 % Normal IM GRAN % 0.100 Result Comment: IG% - Immature Granulocytes (promyelocytes, myelocytes and metamyelocytes) > 1% indicates that a LEFT SHIFT is Present. LAB L100.2620 2.0-7.7 X10 3/uL Normal Absolute Neut 4.9 LAB L100.2720 0.83-4.51 X10 3/ul Normal Absolute Lymph 1.63 Performed By: #### L100.0100 #### [facility] [address] [place], [place], [address] RENAL PROFILE Collected: 07/11/2017 Status: F Source: [place] 1:31 PM [facility] REPOSITORY TYPE CODE TESTS RESULT OUT OF RANGE REFERENCE UNITS LAB L501.0100 74-106 mg/dL High GLU 173 Result Comment: Fasting Glucose result greater than or equal to 126 mg/dL suggests DIABETES MELLITUS per A.D.A. criteria. Please note revised GLUCOSE reference range effective 2017. LAB L501.1000 7-18 mg/dL Normal BUN 16 LAB L501.1100 0.70-1.30 mg/dL Normal CREAT,SERUM 1.12 Result Comment: The validity of the calculated GFR AND GFRAA in patients over 70 years has not been determined. Clinical correlation is essential. LAB L501.1110 >60 mL/min Normal EST GFR 70 Result Comment: Non- GFR Calc LAB L501.1115 >60 mL/min Normal EST GFR - AA 85 Result Comment: GFR Calc LAB L501.1300 10-20 RATIO Normal BUN/CRE 14.3 LAB L501.1800 3.2-5.0 g/dL Normal ALB 3.8 LAB L501.2200 8.5-10.1 mg/dL CA Normal 8.9 LAB L501.2300 2.5-4.9 mg/dL Normal PHOS 2.5 LAB L501.5300 136-145 mmol/L NA Normal 140 LAB L501.5600 3.5-5.1 mmol/L Low K 3.4 LAB L501.5900 98-107 mmol/L CL Normal 105 LAB L501.6100 21.0-32.0 mmol/L Normal CO2 25.0 Performed By: #### L500.3600 #### [facility] [address] [place], [address] RENAL PROFILE Collected: 05/27/2017 Status: F Source: [place] 10:29 AM [facility] REPOSITORY TYPE CODE TESTS RESULT OUT OF RANGE REFERENCE UNITS LAB L501.0100 74-106 mg/dL High GLU 295 Result Comment: Glucose result greater than or equal to 200 mg/dL suggests DIABETES MELLITUS per A.D.A. criteria. Please note revised GLUCOSE reference range effective 2017. LAB L501.1000 7-18 mg/dL High BUN 29 LAB L501.1100 0.70-1.30 mg/dL High CREAT,SERUM 2.45 Result Comment: The validity of the calculated GFR AND GFRAA in patients over 70 years has not been determined. Clinical correlation is essential. LAB L501.1110 >60 mL/min Low EST GFR 28 Result Comment: Non- GFR Calc LAB L501.1115 >60 mL/min Low EST GFR - AA 34 Result Comment: GFR Calc LAB L501.1300 10-20 RATIO Normal BUN/CRE 11.8 LAB L501.1800 3.2-5.0 g/dL Normal ALB 3.7 LAB L501.2200 8.5-10.1 mg/dL Low CA 8.4 LAB L501.2300 2.5-4.9 mg/dL Normal PHOS 4.1 LAB L501.5300 136-145 mmol/L NA Normal 137 LAB L501.5600 3.5-5.1 mmol/L K Normal 3.8 LAB L501.5900 98-107 mmol/L CL Normal 102 LAB L501.6100 21.0-32.0 mmol/L Normal CO2 26.0 Performed By: #### L500.3600 #### [facility] [address] [place], [address] CBC W/DIFF, AUTOMATED Collected: 05/27/2017 Status: F Source: [place] 10:29 AM [facility] REPOSITORY TYPE CODE TESTS RESULT OUT OF RANGE REFERENCE UNITS LAB L100.1000 4.4-11.0 K/mm3 Normal WBC 5.3 LAB L100.1200 4.6-6.2 M/mm3 Normal RBC 4.76 LAB L100.1300 13.0-16.5 g/dl Normal HGB 14.7 LAB L100.1400 40-54 % Normal HCT 43.8 LAB L100.1500 80-94 fL Normal MCV 92.0 LAB L100.1600 27.0-32.0 pg Normal MCH 30.9 LAB L100.1700 32-36 g/gl Normal MCHC 33.6 LAB L100.1810 11.6-14.6 % Normal RDW CV 13.9 LAB L100.1820 35.1-43.9 fl High RDW SD 45.6 LAB L100.1900 150-450 K/mm3 Normal PLT 166 LAB L100.2000 6.2-12.0 fl Normal MPV 10.7 LAB L100.2100 47-70 % Normal NEUT% 54.6 LAB L100.2200 19-41 % Normal LY% 31.8 LAB L100.2300 0-10 % High MONO% 11.7 LAB L100.2400 0-5 % Normal EO% 1.1 LAB L100.2500 0-1 % Normal BASO% 0.2 LAB L100.2550 0.0-0.9 % Normal IM GRAN % 0.600 Result Comment: IG% - Immature Granulocytes (promyelocytes, myelocytes and metamyelocytes) > 1% indicates that a LEFT SHIFT is Present. LAB L100.2620 2.0-7.7 X10 3/uL Normal Absolute Neut 2.9 LAB L100.2720 0.83-4.51 X10 3/ul Normal Absolute Lymph 1.68 Performed By: #### L100.0100 #### [facility] [address] [place], [place], [address] PTHIN Collected: 05/27/2017 Status: F Source: [place] 10:29 AM [facility] REPOSITORY TYPE CODE TESTS RESULT OUT OF RANGE REFERENCE UNITS LAB L509.1000 18.4-80.1 pg/mL Normal PTHIN 59.9 Result Comment: Please Note: PTH INTACT METHOD AND REFERENCE RANGE CHANGE Effective 02/13/2017. Performed By: #### L509.1000 #### [facility] [address] [place], [address] VITAMIN D,25 HYDROXY Collected: 05/27/2017 Status: F Source: [place] 10:29 AM [facility] REPOSITORY TYPE CODE TESTS RESULT OUT OF REFERENCE UNITS RANGE LAB L506.1000 29.95-100.01 ng/mL Low Vitamin D 12.7 25-OH Result Comment: Vitamin D 25(OH) Status Range Deficiency <20 ng/mL (50nmol/L) Insuffciency 20 - 30 ng/mL (50 - 75 nmol/L) Sufficiency 30 - 100 ng/mL (75 - 250 nmol/L) Toxicity >100 ng/mL (>250 nmol/L) Performed By: #### L506.1000 #### [facility] [address] [facility] [place], [address] HEMOGLOBIN A1C Collected: 05/27/2017 Status: F Source: [place] 10:29 AM [facility] REPOSITORY TYPE CODE TESTS RESULT OUT OF RANGE REFERENCE UNITS LAB L501.9985 4.2-6.3 % High HGB A1C 9.7 Performed By: #### L501.9985 #### [facility] [address] [place], [address] PROTEIN+CREATININE Collected: Status: F Source: [place] RATIO,URINE 05/27/2017 10:29 AM [facility] REPOSITORY TYPE CODE TESTS RESULT OUT OF RANGE REFERENCE UNITS LAB L501.1200 NO RANGE EST. mg/dL Normal UR CREAT 229.00 LAB L501.1930 <11.9 mg/dL High 40.9 PROTEIN,UR.R AN. LAB L501.1940 0-200 mg/g CRE Normal PROT:CRE 179 RATIO Performed By: #### L501.0900 #### [facility] [address] [place], [address] KIDNEY AND BLADDER Observed: 04/12/2017 Status: F Source: [place] 1:34 PM [facility] REPOSITORY [facility] [address] [place] [address] Kidney and Bladder MR#: [id number] Acct: [id number] Name: DOMINGA TREJO Rep #: [id number] : 1950 M 66 From: Ant Lopez MD PCP: Miguel Galvan MD Status: REG CLI Study: Kidney and Bladder Date of Exam: 04/12/17 Exam# [id number] Ordering Dr: CARLY ALEJO STUDY: RENAL ULTRASOUND - COMPLETE REASON FOR EXAM: Male, 66 years old. Stage III chronic renal disease. TECHNIQUE: Ultrasound evaluation of the kidneys was performed with real-time and static kelsey-scale imaging. COMPARISON: None. FINDINGS: RIGHT KIDNEY: Normal location of the right kidney, which is normal in size. The right kidney measures 9.8 cm x 4.6 cm x 4.9 cm. There is a normal cortex of the right kidney. The renal cortex measures 1.4 cm. There is a 0.7 cm x 0.8 cm x 0.6 cm cyst. There are no right renal calculi. There is no right hydronephrosis. DISTAL RIGHT URETER: There is non-visualization of the distal right ureter. There is no demonstrated right ureterovesical junction calculus. There is no demonstrated right ureteral jet. LEFT KIDNEY: Normal location of the left kidney, which is normal in size. The left kidney measures 9.0 cm x 3.3 cm x 4.2 cm. There is a normal cortex of the left kidney. The renal cortex measures 1.0 cm. There is a 0.9 cm x 1.1 cm x 0.8 cm cyst. There are no left renal calculi. There is no left hydronephrosis. DISTAL LEFT URETER: There is non-visualization of the distal left ureter. There is no demonstrated left ureterovesical junction calculus. There is no demonstrated left ureteral jet. BLADDER: The bladder is empty at the time of the examination. US/Kidney and Bladder IMPRESSION: Small bilateral renal cysts. Electronically Signed: Ant Lopez MD at 15:56 EST Tel [phone], Service support , CC: Miguel Galvan MD; CARLY ALEJO Sample Finisher: Signed ALLERGIES ALLERGIES DATE TYPE / CODE NAME / CODE REACTION SEVERITY SOURCE 02/06/2018 Drug lisinopril/F cough [facility] Allergy/4160 [id number]( Hospital [address]00(SNOMED NORM) Repository CT) ENCOUNTERS ENCOUNTERS ADMIT/DISCHARGE ACCOUNT ADMITTING ENCOUNTER LOCATION SOURCE NUMBER CLASS 02/10/2018 [id number] Ambulatory [place] 8 [facility] ing:CR Repository 02/06/2018/ [id number] Ambulatory BMSBuilding:B [place] 8 9 [facility] Repository 02/06/2018 [id number] Ambulatory [place] 7 [facility] ing:DC Repository 01/22/2018 [id number] Ambulatory BMSBuilding:W [place] 1 [facility] Repository 01/22/2018/ [id number] [place], [place] [facility] [place]:IC[place]: Repository [id number]: 1 01/22/2018 [id number] [place], Ambulatory BMSBuilding:B [place] 1 [place] MS.[facility] Repository 01/09/2018/ [id number] Ambulatory BMSBuilding:B [place] 8 1 [facility] Repository 01/09/2018 [id number] Ambulatory [place] 9 [facility] ing:CR Repository 01/06/2018/ [id number] Ambulatory [place] 8 8 [facility] ing:DC Repository 12/25/2017 [id number] Ambulatory BMSBuilding:W [place] 2 [facility] Repository 12/23/2017/ [id number] White, Jazmyn Inpatient [place] 8 9 [facility] ing:PCURoom: Repository [id number]: 1 12/23/2017 [id number] White, Jazmyn Ambulatory BMSBuilding:B [place] 3 [facility] Repository 12/23/2017 [id number] White, Jazmyn Ambulatory BMSBuilding:B [place] 8 MS.[facility] Repository 12/23/2017 [id number] White, Jazmyn Ambulatory BMSBuilding:B [place] 6 [facility] Repository 12/23/2017 [id number] White, Jazmyn Ambulatory BMSBuilding:B [place] 9 MS.[facility] Repository 12/23/2017 [id number] White, Jazmyn Ambulatory BMSBuilding:B [place] 9 [place] [place] 12/23/2017/ [id number] Ambulatory BMSBuilding:W [place] 8 7 [facility] Repository 12/23/2017/ [id number] Ambulatory BMSBuilding:W [place] 8 1 [facility] Repository 12/19/2017/ [id number] Ambulatory [place] 8 3 [facility] ing:DC Repository 12/05/2017 [id number] Ambulatory [place] 8 [facility] ing:LAB Repository 12/04/2017 [id number] Ambulatory [place] 1 [facility] ing:LAB Repository 07/11/2017 [id number] Ambulatory [place] 5 [facility] ing:LAB Repository 05/27/2017 [id number] Ambulatory [place] 4 [facility] ing:LAB Repository 04/12/2017 [id number] Ambulatory [place] 7 [facility] ing:[facility] Repository PAYERS PAYERS ENCOUNTER GUARANTOR PAYER SUBSCRIBER SOURCE 02/10/2018 DOMINGA [id number] Insurance:MEDICARE SLATEDOB: Community SUKUMAR PART A [facility] [id number] Number[place] Repository [address]Hoh: [phone] [id number] [phone] () Date:2018-01-09 02/10/2018 Secondary DOMINGA [place] Insurance:MEDICAL SLATEDOB: [facility] [id number] Hospital Number: Repository [id number] Date:3872-29-27HI[address] [address]RX: 02/10/2018 Tertiary SREEDHAR [place] Insurance:SELF PAY [facility] Number: Effective Repository Date:2018-01-09 02/06/2018 DOMINGA Lewis Primary DOMINGA [id number] Insurance:MEDICARE SLATEDOB: Community SUKUMAR PART A [facility] [id number] Number: Repository [address]Kby: 330 [id number] [phone] (HP) Date:2018-01-09 02/06/2018 Secondary DOMINGA R [place] Insurance:MEDICAL SLATEDOB: [facility] 2561-04-95ISS Hospital Number: Repository [id number] Date:2328-61-50IH [address] [address]NE: 02/06/2018 Tertiary NOT GIVENUNK [place] Insurance:SELF PAY [facility] Hospital Number: Effective Repository Date:2018-01-14 02/06/2018 DOMINGA R Primary DOMINGA R [place] [id number] Insurance:MEDICARE SLATEDOB: Community SUKUMAR PART A [place] [id number] Number: Repository [id number]: 330 [id number] [phone] (HP) Date:2017-12-18 02/06/2018 Secondary DOMINGA R [place] Insurance:MEDICAL SLATEDOB: [facility] [id number] Hospital Number: Repository [id number] Date:1861-75-27WM [address] [address]OF: 02/06/2018 Tertiary NOT GIVENUNK [place] Insurance:SELF PAY [facility] Number: Effective Repository Date:2018-01-25 01/22/2018 DOMINGA R Primary DOMINGA R [place] [id number] Insurance:MEDICARE SLATEDOB: Community SUKUMAR PART A [facility] [id number] Number: Repository [address]Xca: 330 [id number] [phone] (HP) Date:2017-12-25 01/22/2018 Secondary DOMINGA R [place] Insurance:MEDICAL SLATEDOB: [facility] [id number] Hospital Number: Repository [id number] Date:4497-31-39EO [address] [address]LZ: 01/22/2018 Tertiary NOT GIVENUNK [place] Insurance:SELF PAY [facility] Hospital Number: Effective Repository Date:2018-01-22 01/22/2018 DOMINGA R Primary DOMINGA R [place] [id number] Insurance:MEDICARE SLATEDOB: Community SUKUMAR PART A [facility] [id number] Number: Repository [address]Het: 330 [id number] [phone] (HP) Date:2017-12-25 01/22/2018 Secondary DOMINGA R [place] Insurance:MEDICAL SLATEDOB: [facility] [id number] Hospital Number: Repository [id number] Date:0052-44-28RQ[address] [address]EM: 01/22/2018 Tertiary NOT GIVENUNK [place] Insurance:SELF PAY [facility] Hospital Number: Effective Repository Date:2017-12-25 01/22/2018 DOMINGA R Primary DOMINGA R [place] [id number] Insurance:MEDICARE SLATEDOB: Community SUKUMAR PART A [facility] [id number] Number: Repository [address]Uvi: 330 [id number] [phone] (HP) Date:2017-12-25 01/22/2018 Secondary DOMINGA R [place] Insurance:MEDICAL SLATEDOB: [facility] [id number] Hospital Number: Repository [id number] Date:9398-83-95SR [address] [address]TP: 01/22/2018 Tertiary NOT GIVENUNK [place] Insurance:SELF PAY [facility] Hospital Number: Effective Repository Date:2018-01-22 01/09/2018 DMOINGA R Primary DOMINGA R [place] [id number] Insurance:MEDICARE SLATEDOB: Community SUKUMAR PART A [facility] [id number], [place] Number: Repository [address]Xhf: 330 [id number] [phone] (HP) Date:2017-12-24 01/09/2018 Secondary DOMINGA R [place] Insurance:MEDICAL SLATEDOB: [facility] 1084-78-18HGU Hospital Number: Repository [id number] Date:9858-52-70ZU [address] [place] [address]MA: 01/09/2018 Tertiary NOT GIVENUNK [place] Insurance:SELF PAY [facility] Number: Effective Repository Date:2018-01-09 01/09/2018 DOMINGA R Primary DOMINGA [place] [id number] Insurance:MEDICARE SLATEDOB: Community SUKUMAR PART A [facility] [id number] Number: Repository [address]Xmf: 330 [id number] [phone] (HP) Date:2018-01-06 01/09/2018 Secondary DOMINGA R [place] Insurance:MEDICAL SLATEDOB: [facility] [id number] Hospital Number: Repository [id number] Date:4088-82-71CX [address] [address]YG: 01/09/2018 Tertiary NOT GIVENUNK [place] Insurance:SELF PAY [facility] Hospital Number: Effective Repository Date:2018-01-06 01/06/2018 DOMINGA R Primary DOMINGA [place] [id number] Insurance:MEDICARE SLATEDOB: Community SUKUMAR PART A [facility] [id number], [place] Number: Repository [address]Sth: 330 [id number] [phone] (HP) Date:2017-12-18 01/06/2018 Secondary DOMINGA R [place] Insurance:MEDICAL SLATEDOB: [facility] [id number] Hospital Number: Repository [id number] Date:3462-94-06TL [address] [place] [address]ZP: 01/06/2018 Tertiary NOT GIVENUNK [place] Insurance:SELF PAY [facility] Hospital Number: Effective Repository Date:2017-12-26 12/25/2017 DOMINGA R Primary DOMINGA R [place] [id number] Insurance:MEDICARE SLATEDOB: Community SUKUMAR PART A [facility] [id number], [place] Number: Repository [id number]: 330 [id number] [phone] (HP) Date:2017-12-23 12/25/2017 Secondary DOMINGA R [place] Insurance:MEDICAL SLATEDOB: [facility] 1112-47-82VKR Hospital Number: Repository [id number] Date:9275-78-74DP [address] [address]TK: 12/25/2017 Tertiary NOT GIVENUNK [place] Insurance:SELF PAY [facility] Hospital Number: Effective Repository Date:2017-12-25 12/23/2017 DOMINGA R Primary DOMINGA R [place] [id number] Insurance:MEDICARE SLATEDOB: Community SUKUMAR PART A [facility] [id number] Number: Repository [address]Sul: 330 [id number] [phone] () Date:2017-12-23 12/23/2017 Secondary DOMINGA R [place] Insurance:MEDICAL SLATEDOB: [facility] [id number] Hospital Number: Repository [id number] Date:4921-35-31TK [address] [address]IV: 12/23/2017 Tertiary NOT GIVENUNK [place] Insurance:SELF PAY [facility] Hospital Number: Effective Repository Date:2017-12-23 12/23/2017 DOMINGA R Primary DOMINGA Joshua [place] [id number] Insurance:MEDICARE SLATEDOB: Community SUKUMAR PART A [facility] [id number] Number: Repository [address]Vuk: 330 [id number] [phone] () Date:2017-12-23 12/23/2017 Secondary DOMINGA R [place] Insurance:MEDICAL SLATEDOB: [facility] [id number] Hospital Number: Repository [id number] Date:2909-80-70AX [address] [address]SG: 12/23/2017 Tertiary NOT GIVENUNK [place] Insurance:SELF PAY [facility] Hospital Number: Effective Repository Date:2017-12-23 12/23/2017 DOMINGA R Primary DOMINGA R [place] [id number] Insurance:MEDICARE SLATEDOB: Community SUKUMAR PART A [facility] [id number], [place] Number: Repository [id number]: 330 [id number] [phone] (HP) Date:2017-12-23 12/23/2017 Secondary DOMINGA R [place] Insurance:MEDICAL SLATEDOB: [facility] [id number] Hospital Number: Repository [id number] Date:9636-57-43BI [address] [place] [address]NU: 12/23/2017 Tertiary NOT GIVENUNK [place] Insurance:SELF PAY [facility] Hospital Number: Effective Repository Date:2017-12-23 12/23/2017 DOMINGA R Primary DOMINGA R [place] [id number] Insurance:MEDICARE SLATEDOB: Community SUKUMAR PART A [facility] [id number] Number: Repository [address]Uzp: 330 [id number] [phone] (HP) Date:2017-12-23 12/23/2017 Secondary DOMINGA R [place] Insurance:MEDICAL SLATEDOB: [facility] [id number] Hospital Number: Repository [id number] Date:3608-84-61SW [address] [address]SJ: 12/23/2017 Tertiary NOT GIVENUNK [place] Insurance:SELF PAY [facility] Hospital Number: Effective Repository Date:2017-12-23 12/23/2017 DOMINGA R Primary DOMINGA R [place] [id number] Insurance:MEDICARE SLATEDOB: Community SUKUMAR PART A [facility] [id number] Number: Repository [id number]: 330 [id number] [phone] (HP) Date:2017-12-23 12/23/2017 Secondary DOMINGA R [place] Insurance:MEDICAL SLATEDOB: [facility] 1768-98-27VLT Hospital Number: Repository [id number] Date:0211-80-61WX [address] [address]ZY: 12/23/2017 Tertiary NOT GIVENUNK [place] Insurance:SELF PAY [facility] Hospital Number: Effective Repository Date:2017-12-23 12/23/2017 DOMINGA R Primary DOMINGA [place] [id number] Insurance:MEDICARE SLATEDOB: Community SUKUMAR PART A [facility] [id number] Number: Repository [address]Ifp: 330 [id number] [phone] (HP) Date:2017-12-23 12/23/2017 Secondary DOMINGA R [place] Insurance:MEDICAL SLATEDOB: [facility] [id number] Hospital Number: Repository [id number] Date:2891-55-71UV [address] [place] [address]ML: 12/23/2017 Tertiary NOT GIVENUNK [place] Insurance:SELF PAY [facility] Hospital Number: Effective Repository Date:2017-12-23 12/23/2017 DOMINGA R Primary DOMINGA R [place] [id number] Insurance:MEDICARE SLATEDOB: Community SUKUMAR PART A [facility] [id number], [place] Number: Repository [id number]: 330 [id number] [phone] (HP) Date:2017-12-23 12/23/2017 Secondary DOMINGA R [place] Insurance:MEDICAL SLATEDOB: [facility] [id number] Hospital Number: Repository [id number] Date:4924-98-23HW [address] [place] [address]RI: 12/23/2017 Tertiary NOT GIVENUNK [place] Insurance:SELF PAY [facility] Hospital Number: Effective Repository Date:2017-12-23 12/23/2017 DOMINGA R Primary DOMINGA R [place] [id number] Insurance:MEDICARE SLATEDOB: Community SUKUMAR PART A [facility] [id number] Number: Repository [id number]: 330 [id number] [phone] (HP) Date:2017-12-23 12/23/2017 Secondary DOMINGA R [place] Insurance:MEDICAL SLATEDOB: [facility] [id number] Number: Repository [id number] Date:3358-07-90HN [address] [place] [address]YX: 12/23/2017 Tertiary NOT GIVENUNK Fernando Insurance:SELF PAY [facility] Number: Effective Repository Date:2017-12-23 12/19/2017 DOMINGA R Primary DOMINGA R [place] [id number] Insurance:MEDICARE SLATEDOB: Community SUKUMAR PART A [facility] [id number] Number: Repository [id number]: 330 [id number] [phone] (HP) Date:2017-12-18 12/19/2017 Secondary DOMINGA R [place] Insurance:MEDICAL SLATEDOB: [facility] [id number] Number: Repository [id number] Date:[id number] [address]IX: 12/19/2017 Tertiary NOT GIVENUNK [place] Insurance:SELF PAY [facility] Number: Effective Repository Date:2017-12-18 12/05/2017 DOMINGA R Primary DOMINGA R [place] [id number] Insurance:MEDICARE SLATEDOB: Community SUKUMAR PART A [facility] [id number] Number: Repository [id number]: 330 [id number] [phone] (HP) Date:2017-12-05 12/05/2017 Secondary DOMINGA R [place] Insurance:MEDICAL SLATEDOB: [facility] [id number] Number: Repository [id number] Date:3728-75-79WA [address] [address]YM: 12/05/2017 Tertiary NOT GIVENUNK [place] Insurance:SELF PAY [facility] Number: Effective Repository Date:2017-12-05 12/04/2017 DOMINGA R Primary DOMINGA R [place] [id number] Insurance:MEDICARE SLATEDOB: Community SUKUMAR PART A [facility] [id number] Number[place] Repository [id number]: 330 [id number] [phone] (HP) Date:2017-12-04 12/04/2017 Secondary DOMINGA R [place] Insurance:MEDICAL SLATEDOB: Community [place] [id number] Number: Repository [id number] Date:[id number] [address] [place] [address]AA: 12/04/2017 Tertiary NOT GIVENUNK [place] Insurance:SELF PAY [facility] Number: Effective Repository Date:2017-12-04 07/11/2017 DOMINGA R Primary DOMINGA [place] [id number] Insurance:CARESOURCE SLATEDOB: Community SUKUMAR JUST FOR [place] [id number] Number: Repository [id number]: 330 [id number] [phone] (HP) Date:8009-28-79NZ [address] [address]RM: 07/11/2017 Secondary NOT GIVENUNK Fernando Insurance:SELF PAY [facility] Number: Effective Repository Date:2017-07-11 05/27/2017 DOMINGA R Primary DOMINGA [place] [id number] Insurance:CARESOURCE SLATEDOB: Community SUKMUAR JUST [address]10-26[place], [place] Number: Repository [id number]: 330 [id number] [phone] (HP) Date:3543-23-92XB [address] [place] [address]DQ: 05/27/2017 Secondary NOT GIVENUNK [place] Insurance:SELF PAY [facility] Number: Effective Repository Date:2017-05-27 04/12/2017 DOMINGA R Primary DOMINGA [place] [id number] Insurance:CARESOURCE SLATEDOB: Community SUKUMAR JUST FOR [address]10-26[place], [place] Number: Repository [id number]: 330 [id number] [phone] (HP) Date:6915-50-82BH [address] [address]OF: 04/12/2017 Secondary NOT GIVENUNK [place] [facility]LF [facility] Effective Repository Date:2017-04-09
== END 2018-01-23 11:10 | disposition home or self-care (01) ==
LOC: ICU 01-23 08:17
PROVIDERS: Admitting Provider Internal Medicine Cardiovascular Disease; Family Provider Family Medicine; PCP Family Medicine; Referring Provider Internal Medicine Cardiovascular Disease; Visit Provider Internal Medicine Cardiovascular Disease
DX: I25.10 Atherosclerotic heart disease of native coronary artery without angina pectoris (principal); I10 Essential (primary) hypertension; E11.9 Type 2 diabetes mellitus without complications; I25.2 Old myocardial infarction; Z87.891 Personal history of nicotine dependence; E78.5 Hyperlipidemia, unspecified; Z79.899 Other long term (current) drug therapy; Z79.82 Long term (current) use of aspirin; Z79.4 Long term (current) use of insulin; K21.9 Gastro-esophageal reflux disease without esophagitis; Z95.5 Presence of coronary angioplasty implant and graft
CPT/HCPCS: 80048; 80061; 82962; 85027; 85347; 92921; 92928; 93005; 96360; 96361; 99218; J7030; J7040; C1725; C1769; C1874; C1887; C1894; C9600; G0378; G0379; Q9967

== ENCOUNTER 2018-02-06 12:00 | Outpatient (RCR) | payer MEDICARE, OTHER, SELFPAY ==
[2018-01-22 10:38] VITALS: BMI 26.4
== END 2018-02-24 23:59 ==
LOC: DC 12:00
PROVIDERS: Family Provider Family Medicine; PCP Family Medicine
DX: E11.65 Type 2 diabetes mellitus with hyperglycemia (principal); Z71.3 Dietary counseling and surveillance
CPT/HCPCS: 97803; G0108

== ENCOUNTER 2018-02-24 08:00 | Outpatient (RCR) | payer MEDICARE, OTHER, SELFPAY ==
[2018-01-09 12:47] VITALS: BMI 27.1
[2018-02-06 14:04] VITALS: BMI 27.0
== END 2018-02-24 23:59 ==
LOC: CR 08:00
PROVIDERS: Family Provider Family Medicine; PCP Family Medicine; Referring Provider Internal Medicine Cardiovascular Disease; Visit Provider Internal Medicine Cardiovascular Disease
DX: I25.2 Old myocardial infarction (principal); I25.10 Atherosclerotic heart disease of native coronary artery without angina pectoris; Z95.5 Presence of coronary angioplasty implant and graft
CPT/HCPCS: 93798

== ENCOUNTER 2018-03-20 10:49 | Outpatient (RCR) | payer MEDICARE, OTHER, SELFPAY ==
[2018-02-06 14:04] VITALS: BMI 27.0
== END 2018-03-20 23:59 ==
LOC: DC 10:49
PROVIDERS: Family Provider Family Medicine; PCP Family Medicine
DX: E11.65 Type 2 diabetes mellitus with hyperglycemia (principal); Z71.3 Dietary counseling and surveillance
CPT/HCPCS: G0108

== ENCOUNTER 2018-03-24 08:00 | Outpatient (RCR) | payer MEDICARE, OTHER, SELFPAY ==
[2018-02-06 14:04] VITALS: BMI 27.0
--- NOTE | 2018-03-12 08:01 | PCM.CR.ITP ---
General Information - General Information Admitting Diagnosis: STEMI w/coronary artery stent placement - Education/Goals Cardiac Rehabilitation Goals: 1. Maintain the individual as the primary focus of care. 2. To improve the patient's quality of life. 3. Identification of cardiac risk factors and provide cardiac risk factor management. 4. Enhance the psychosocial status of the patient. 5. Reconditioning enough to allow the patient to resume customary activities. 6. Control symptoms of cardiac disease Scale for measuring improvement of personal goals: Enter appropriate number in Comments. 2 = Unchanged. 3 = Slightly Better. 4 = Moderate Improvement. 5 = Met my Goal Exercise - 30-day Assessment - Visit Date of Eval: 03/12/18 Session #:: 15 - Stages of Change Stages of Change:: Action - Exercise Prescription Mode:: Treadmill, Airdyne, NuStep Frequency (x/week): 3 Duration:: 30-45 METs - Progression: 0.5-1 MET as tolerated: 4 Target Heart Rate:: 116-124 Max HR 99 - Hypertension Resting Blood Pressure:: 116/68 Peak Exercise Blood Pressure:: 170/82 - Intervention Home Exercise/Activity Goal:: Sitting Time <3 hrs/day - Education Goals:: Warm-up, RPE YOLETTE Scale, S/S, Safe Exercise, Self-Monitoring - Exercise Program Goals Exercise Program Goals: Aerobic Activity >30 min, B/P <130/80 Nutrition - Initial Assessment - Program Goals Nutrition Program Goals: LDL <70. Total Cholesterol <200. HDL >45. Triglycerides <150. HgbA1C <7%. BMI <25 - Diabetes Do you monitor your blood sugar at home?: Yes Nutrition - 30-Day Assessment - Program Goals Nutrition Program Goals: LDL <70. Total Cholesterol <200. HDL >45. Triglycerides <150. HgbA1C <7%. BMI <25 - Visit Date of Eval: 03/12/18 - Stages of Change Stages of Change:: Action - Diabetes Diabetes:: Yes Insulin: Yes - Weight Management Weight:: 81.42 kg - Intervention Referral to dietitian:: Yes Referral to Diabetic Clinic:: Yes Will attend diet classes:: Yes - Education Attended class for:: Signs & symptoms of hypoglycemia, Signs & symptoms of hyperglycemia, Relate diabetes to coronary artery disease, Healthy eating Tobacco - Initial Assessment - Program Goals Tobacco Program Goals: Complete smoking cessation. Attend education classes. Improve Knowledge Test score - Learning Barriers Learning Barriers: Vision, Ready to Learn Tobacco - 30-Day Assessment - Program Goals Tobacco Program Goals: Complete smoking cessation. Attend education classes. Improve Knowledge Test score - Stage of Change Stages of Change:: Action - Learning Barriers Learning Barriers: Participates in education - Family Support Do you have family support?: Yes - Tobacco Use Tobacco Use: Non-smoker Do you use smokeless tobacco?: No - Intervention Smoking Cessation Referral:: No Individual Education/Counseling:: No Education Schedule Given:: Yes - Education Attended class for:: Tobacco triggers, Coronary artery disease, Risk factors, Sexuality, Medical compliance, Cardiac A&P, Angina signs & symptoms Psychosocial - Initial Assess - Target Goals Target Goals: Assess presence or absence of depression. Using a valid screening tool, maximizes coping skills. Positive support system - Psychosocial Test Tool Used:: HANDS Depression Questionnaire - Assistive Devices Fall Risk Assessed:: Yes Psychosocial - 30-Day Assess - Target Goals Target Goals: Assess presence or absence of depression. Using a valid screening tool, maximizes coping skills. Positive support system - Stages of Change Stages of Change:: Action - Psychosocial Test Tool Used:: HANDS Depression Questionnaire - Intervention PS - Interventions: Yes Attend Stress Management Classes, Yes Uses Stress Management Skills, No Referral to Mental Health, No Referral to [facility] Case Management, No Referral to Physician - Education Attended classes for:: Coping techniques, Signs & symptoms of depression, Stress management, Relaxation techniques - Assistive Devices Assistive Devices:: None Fall Risk Assessed:: Yes Patient Health Questionnaire 30-Day Re-eval Assessment 1. Little interest or pleasure in doing things: Not at all 2. Feeling down, depressed, or hopeless: Not at all 3. Trouble falling or staying asleep, or sleeping too much: Nearly every day 4. Feeling tired or having little energy: Nearly every day 5. Poor appetite or overeating: Not at all 6. Feeling bad about yourself -- or that you are a failure or have let yourself or your family down: Not at all 7. Trouble concentrating on things, such as reading the newspaper or watching television: Not at all 8. Moving or speaking so slowly that other people could have noticed. Or the opposite - being so fidgety or restless that you have been moving around a lot more than usual: Not at all 9. Thoughts that you would be better off , or of hurting yourself in some way: Not at all How difficult have these problems made it for you to do your work, take care of things at home, or get along with other people?: Not difficult at all Total Score: 6 Self-Efficacy 30-Day Re-eval Assessment We would like to know how confident you are in doing certain activities. Please select your confidence level for:: Select your confidence level for the following using the scale 1-10 where 1 is not at all confident and 10 is totally confident. Your score is the average of all 6 responses. Fatigue: How confident are you that you can keep the fatigue caused by your disease from interfering with the things you want to do? Select Number: 8 Physical Discomfort or Pain: How confident are you that you can keep the physical discomfort or pain of your disease from interfering with the things you want to do? Select Number: 8 Emotional Distress: How confident are you that you can keep the emotional distress caused by your disease from interfering with the things you want to do? Select Number: 8 Other Symptoms or Health Problems: How confident are you that you can keep other symptoms or health problems from interfering with the things you want to do? Select Number: 8 Different Tasks and Activities: How confident are you that you can do the different tasks and activities needed to manage your health condition so as to reduce your need to see a doctor? Select Number: 8 Medication: How confident are you that you can do things other than just taking medication to reduce how much your illness affects your everyday life? Select Number: 10 Total Score:: 8
[2018-03-12 08:07] VITALS: BP 116/68; BP 170/82
== END 2018-03-27 23:59 ==
LOC: CR 08:00
PROVIDERS: Family Provider Family Medicine; PCP Family Medicine; Referring Provider Internal Medicine Cardiovascular Disease; Visit Provider Internal Medicine Cardiovascular Disease
DX: I25.2 Old myocardial infarction (principal); I25.10 Atherosclerotic heart disease of native coronary artery without angina pectoris; Z95.5 Presence of coronary angioplasty implant and graft
CPT/HCPCS: 93798

== ENCOUNTER 2018-04-23 08:00 | Outpatient (RCR) | payer MEDICARE, OTHER, SELFPAY ==
[2018-02-06 14:04] VITALS: BMI 27.0
[2018-03-28 00:51] VITALS: BP 116/68; BP 170/82
--- NOTE | 2018-04-09 09:18 | PCM.CR.ITP ---
General Information - General Information Admitting Diagnosis: STEMI, PCI W/ Coronary stenting - Education/Goals Cardiac Rehabilitation Goals: 1. Maintain the individual as the primary focus of care. 2. To improve the patient's quality of life. 3. Identification of cardiac risk factors and provide cardiac risk factor management. 4. Enhance the psychosocial status of the patient. 5. Reconditioning enough to allow the patient to resume customary activities. 6. Control symptoms of cardiac disease Scale for measuring improvement of personal goals: Enter appropriate number in Comments. 2 = Unchanged. 3 = Slightly Better. 4 = Moderate Improvement. 5 = Met my Goal Exercise - 60-Day Assessment - Visit Date of Eval: 04/09/18 Session #:: 26 - Stages of Change Stages of Change:: Action - Exercise Prescription Mode:: Treadmill, Airdyne, NuStep Frequency (x/week): 3 Duration:: 30-45 METs: 5 Target Heart Rate:: 116-124 Max HR 100 - Hypertension Resting Blood Pressure:: 102/68 Peak Exercise Blood Pressure:: 148/86 - Intervention Home Exercise/Activity Goal:: Sitting Time <3 hrs/day - Education Goals:: Warm-up, RPE YOLETTE Scale, S/S, Safe Exercise, Self-Monitoring - Exercise Program Goals Exercise Program Goals: Aerobic Activity >30 min, B/P <130/80 Nutrition - Initial Assessment - Program Goals Nutrition Program Goals: LDL <70. Total Cholesterol <200. HDL >45. Triglycerides <150. HgbA1C <7%. BMI <25 - Diabetes Do you monitor your blood sugar at home?: Yes Nutrition - 60-Day Assessment - Program Goals Nutrition Program Goals: LDL <70. Total Cholesterol <200. HDL >45. Triglycerides <150. HgbA1C <7%. BMI <25 - Visit Date of Eval: 04/09/18 - Stages of Change Stages of Change:: Action - Diabetes Diabetes:: Yes - Weight Management Weight:: 83.688 kg - Intervention Referral to dietitian:: No Referral to Diabetic Clinic:: No Will attend diet classes:: Yes - Education Attended class for:: Signs & symptoms of hypoglycemia, Signs & symptoms of hyperglycemia, Relate diabetes to coronary artery disease, Healthy eating Tobacco - Initial Assessment - Program Goals Tobacco Program Goals: Complete smoking cessation. Attend education classes. Improve Knowledge Test score - Learning Barriers Learning Barriers: Vision, Ready to Learn Tobacco - 60-Day Assessment - Program Goals Tobacco Program Goals: Complete smoking cessation. Attend education classes. Improve Knowledge Test score - Stage of Change Stages of Change:: Action - Learning Barriers Learning Barriers: Participates in education - Family Support Do you have family support?: Yes - Tobacco Use Tobacco Use: Non-smoker Do you use smokeless tobacco?: No - Intervention Smoking Cessation Referral:: No Individual Education/Counseling:: No Education Schedule Given:: Yes - Education Attended class for:: Tobacco triggers, Coronary artery disease, Risk factors, Sexuality, Medical compliance, Cardiac A&P, Angina signs & symptoms Psychosocial - Initial Assess - Target Goals Target Goals: Assess presence or absence of depression. Using a valid screening tool, maximizes coping skills. Positive support system - Psychosocial Test Tool Used:: HANDS Depression Questionnaire - Assistive Devices Fall Risk Assessed:: Yes Psychosocial - 60-Day Assess - Target Goals Target Goals: Assess presence or absence of depression. Using a valid screening tool, maximizes coping skills. Positive support system - Stages of Change Stages of Change:: Action - Psychosocial Test Tool Used:: HANDS Depression Questionnaire - Intervention PS - Interventions: Yes Attend Stress Management Classes, Yes Uses Stress Management Skills, No Referral to Mental Health, No Referral to [facility] Case Management, No Referral to Physician - Education Attended classes for:: Coping techniques, Signs & symptoms of depression, Stress management, Relaxation techniques - Assistive Devices Assistive Devices:: None Fall Risk Assessed:: Yes Patient Health Questionnaire 90-Day Re-eval Assessment 1. Little interest or pleasure in doing things: Not at all 2. Feeling down, depressed, or hopeless: Not at all 3. Trouble falling or staying asleep, or sleeping too much: Nearly every day 4. Feeling tired or having little energy: Nearly every day 5. Poor appetite or overeating: Not at all 6. Feeling bad about yourself -- or that you are a failure or have let yourself or your family down: Not at all 7. Trouble concentrating on things, such as reading the newspaper or watching television: Not at all 8. Moving or speaking so slowly that other people could have noticed. Or the opposite - being so fidgety or restless that you have been moving around a lot more than usual: Not at all 9. Thoughts that you would be better off , or of hurting yourself in some way: Not at all How difficult have these problems made it for you to do your work, take care of things at home, or get along with other people?: Not difficult at all Total Score: 6 Self-Efficacy 90-Day Re-eval Assessment We would like to know how confident you are in doing certain activities. Please select your confidence level for:: Select your confidence level for the following using the scale 1-10 where 1 is not at all confident and 10 is totally confident. Your score is the average of all 6 responses. Fatigue: How confident are you that you can keep the fatigue caused by your disease from interfering with the things you want to do? Select Number: 8 Physical Discomfort or Pain: How confident are you that you can keep the physical discomfort or pain of your disease from interfering with the things you want to do? Select Number: 8 Emotional Distress: How confident are you that you can keep the emotional distress caused by your disease from interfering with the things you want to do? Select Number: 8 Other Symptoms or Health Problems: How confident are you that you can keep other symptoms or health problems from interfering with the things you want to do? Select Number: 8 Different Tasks and Activities: How confident are you that you can do the different tasks and activities needed to manage your health condition so as to reduce your need to see a doctor? Select Number: 8 Medication: How confident are you that you can do things other than just taking medication to reduce how much your illness affects your everyday life? Select Number: 10 Total Score:: 8
[2018-04-09 09:25] VITALS: BP 102/68; BP 148/86
== END 2018-04-24 23:59 ==
LOC: CR 08:00
PROVIDERS: Family Provider Family Medicine; PCP Family Medicine; Referring Provider Internal Medicine Cardiovascular Disease; Visit Provider Internal Medicine Cardiovascular Disease
DX: I25.2 Old myocardial infarction (principal); I25.10 Atherosclerotic heart disease of native coronary artery without angina pectoris; Z95.5 Presence of coronary angioplasty implant and graft
CPT/HCPCS: 93798

== ENCOUNTER 2018-05-05 08:00 | Outpatient (RCR) | payer MEDICARE, OTHER, SELFPAY ==
[2018-02-06 14:04] VITALS: BMI 27.0
[2018-04-25 00:44] VITALS: BP 102/68; BP 148/86
--- NOTE | 2018-05-07 10:41 | CR.ITP_ITS ---
General Information - General Information Admitting Diagnosis: STEMI S/P PCI with stent - Education/Goals Barriers to Learning: None Cardiac Rehabilitation Goals: 1. Maintain the individual as the primary focus of care. 2. To improve the patient's quality of life. 3. Identification of cardiac risk factors and provide cardiac risk factor management. 4. Enhance the psychosocial status of the patient. 5. Reconditioning enough to allow the patient to resume customary activities. 6. Control symptoms of cardiac disease Scale for measuring improvement of personal goals: Enter appropriate number in Comments. 2 = Unchanged. 3 = Slightly Better. 4 = Moderate Improvement. 5 = Met my Goal Exercise - 90-Day Assessment - Visit Date of Eval: 05/07/18 Session #:: 35 - Stages of Change Stages of Change:: Action - Physician Prescribed Exercise Modalities: Treadmill, Rower, Airdyne, NuStep Frequency (days/week): 3 Duration (Minutes):: 30-45 Intensity: 60-80% age predicted maximum heart rate reserve METs - Progression: 0.5-1.0 MET, RPE 11-14 WEEK: 6 Target Heart Rate:: 116-124 Max HR 104 - Hypertension Resting Blood Pressure:: 138/80 Peak Exercise Blood Pressure:: 160/90 - Intervention Home Exercise/Activity Goal:: Sitting Time <3 hrs/day - Education Goals:: Warm-up, RPE YOLETTE Scale, S/S, Safe Exercise, Self-Monitoring - Exercise Program Goals Exercise Program Goals: Aerobic Activity >30 min, B/P <130/80 Nutrition - Initial Assessment - Program Goals Nutrition Program Goals: LDL <70. Total Cholesterol <200. HDL >45. Triglycerides <150. HgbA1C <7%. BMI <25 - Diabetes Do you monitor your blood sugar at home?: Yes Nutrition - 90-Day Assessment - Program Goals Nutrition Program Goals: LDL <70. Total Cholesterol <200. HDL >45. Triglycerides <150. HgbA1C <7%. BMI <25 - Visit Date of Eval: 05/07/18 - Stages of Change Stages of Change:: Action - Lipids Has the patient seen the dietitian?: No - Weight Management Weight:: 87.997 kg - Intervention Referral to dietitian:: No Referral to Diabetic Clinic:: No Will attend diet classes:: Yes - Education Attended class for:: Signs & symptoms of hypoglycemia, Signs & symptoms of hyperglycemia, Relate diabetes to coronary artery disease, Healthy eating Tobacco - Initial Assessment - Program Goals Tobacco Program Goals: Complete smoking cessation. Attend education classes. Improve Knowledge Test score - Learning Barriers Learning Barriers: Vision, Ready to Learn Tobacco - 90-Day Assessment - Program Goals Tobacco Program Goals: Complete smoking cessation. Attend education classes. Improve Knowledge Test score - Stage of Change Stages of Change:: Action - Learning Barriers Learning Barriers: Participates in education - Family Support Do you have family support?: Yes - Tobacco Use Tobacco Use: Non-smoker Do you use smokeless tobacco?: No - Intervention Smoking Cessation Referral:: No Individual Education/Counseling:: No Education Schedule Given:: Yes - Education Attended class for:: Tobacco triggers, Coronary artery disease, Risk factors, Sexuality, Medical compliance, Cardiac A&P, Angina signs & symptoms Psychosocial - Initial Assess - Target Goals Target Goals: Assess presence or absence of depression. Using a valid screening tool, maximizes coping skills. Positive support system - Psychosocial Test Tool Used:: HANDS Depression Questionnaire - Assistive Devices Fall Risk Assessed:: Yes Psychosocial - 90-Day Assess - Target Goals Target Goals: Assess presence or absence of depression. Using a valid screening tool, maximizes coping skills. Positive support system - Stages of Change Stages of Change:: Action - Psychosocial Test Tool Used:: HANDS Depression Questionnaire - Intervention PS - Interventions: Yes Attend Stress Management Classes, Yes Uses Stress Management Skills, No Referral to Mental Health, No Referral to [facility] Case Management, No Referral to Physician - Education Attended classes for:: Coping techniques, Signs & symptoms of depression, Stress management, Relaxation techniques - Assistive Devices Assistive Devices:: None Fall Risk Assessed:: Yes Patient Health Questionnaire 90-Day Re-eval Assessment 1. Little interest or pleasure in doing things: Not at all 2. Feeling down, depressed, or hopeless: Not at all 3. Trouble falling or staying asleep, or sleeping too much: Nearly every day 4. Feeling tired or having little energy: Nearly every day 5. Poor appetite or overeating: Not at all 6. Feeling bad about yourself -- or that you are a failure or have let yourself or your family down: Not at all 7. Trouble concentrating on things, such as reading the newspaper or watching television: Not at all 8. Moving or speaking so slowly that other people could have noticed. Or the opposite - being so fidgety or restless that you have been moving around a lot more than usual: Not at all 9. Thoughts that you would be better off , or of hurting yourself in some way: Not at all How difficult have these problems made it for you to do your work, take care of things at home, or get along with other people?: Not difficult at all Total Score: 6 Self-Efficacy 90-Day Re-eval Assessment We would like to know how confident you are in doing certain activities. Please select your confidence level for:: Select your confidence level for the following using the scale 1-10 where 1 is not at all confident and 10 is totally confident. Your score is the average of all 6 responses. Fatigue: How confident are you that you can keep the fatigue caused by your disease from interfering with the things you want to do? Select Number: 8 Physical Discomfort or Pain: How confident are you that you can keep the physical discomfort or pain of your disease from interfering with the things you want to do? Select Number: 8 Emotional Distress: How confident are you that you can keep the emotional distress caused by your disease from interfering with the things you want to do? Select Number: 8 Other Symptoms or Health Problems: How confident are you that you can keep other symptoms or health problems from interfering with the things you want to do? Select Number: 8 Different Tasks and Activities: How confident are you that you can do the different tasks and activities needed to manage your health condition so as to reduce your need to see a doctor? Select Number: 8 Medication: How confident are you that you can do things other than just taking medication to reduce how much your illness affects your everyday life? Select Number: 10 Total Score:: 8
[2018-05-07 10:42] VITALS: BP 138/80; BP 160/90
== END 2018-05-25 23:59 ==
LOC: CR 08:00
PROVIDERS: Family Provider Family Medicine; PCP Family Medicine; Referring Provider Internal Medicine Cardiovascular Disease; Visit Provider Internal Medicine Cardiovascular Disease
DX: I25.2 Old myocardial infarction (principal); I25.10 Atherosclerotic heart disease of native coronary artery without angina pectoris; Z95.5 Presence of coronary angioplasty implant and graft
CPT/HCPCS: 93798

== ENCOUNTER 2018-05-05 11:23 | Emergency (ER) | payer MEDICARE, OTHER, SELFPAY ==
[2018-02-06 14:04] VITALS: BMI 27.0
[2018-05-05 11:24] VITALS: BP 158/85; PULSE 71; RESP 16; TEMP 36.8; O2SAT 97; BMI 28.7
--- NOTE | 2018-05-05 11:48 | CT_ITS ---
STUDY: CTA OF THE BRAIN REASON FOR EXAM: Male, 67 years old. Frontal and temporal pressure. RADIATION DOSAGE (If Supplied By Facility): CTDIvol = ( 56.78 ) mGy, DLP = ( 2212.34 ) mGycm TECHNIQUE: CT angiography was performed with a multi-detector CT scanner. Data acquisition was obtained from the skull base through the vertex following intravenous administration of Isovue 370 100CC IV. MIP images were reconstructed from the axial data set. Post-processing of the angiographic images was performed, with multiplanar reformation and 3D reconstruction. Individualized dose optimization techniques were used for this CT. COMPARISON: None. FINDINGS: Normal bilateral petrous carotid arteries. There is calcified plaque formation of the right cavernous carotid artery, without a cross-sectional luminal stenosis. There is calcified plaque formation of the left cavernous carotid artery, without a cross-sectional luminal stenosis. Normal right A1 segments of the anterior cerebral artery. Normal left A1 segments of the anterior cerebral artery. Normal intact anterior communicating artery (ACOM). Normal bilateral A2 segments of the anterior cerebral arteries. Normal right M1 and M2 segments of the middle cerebral arteries, with a normal M1 bifurcation. Normal left M1 and M2 segments of the middle cerebral arteries, with a normal M1 bifurcation. Normal right posterior communicating artery (PCOM). Normal left posterior communicating artery (PCOM). Normal bilateral vertebral arteries. Normal basilar artery with a normal basilar bifurcation. The visualized bilateral superior cerebellar (SCA) arteries are normal. Normal bilateral P1, P2 and visualized P3 segments of the posterior cerebral arteries. There is no demonstrated aneurysm of the apache of [place]. There is a moderate-sized acute right subdural hematoma overlying the right frontal parietal occipital lobes. There is evidence of mass effect with shift of the midline from right to left measuring 3.6 mm. Partial opacification of the left maxillary sinus and nodular mucosal thickening of the right maxillary sinus. Opacification of the right sphenoid sinus. CT/CTA Head W/WO Contrast IMPRESSION: Moderate size right acute subdural hematoma overlying the right frontal, parietal and occipital lobes with shift of the midline from right to left of 3.6 mm. Sinusitis. Electronically Signed: Ant Lopez, at 14:27 EDT , Service support ,
[2018-05-05] MEDS: 0.9% Normal Saline 1,000 ML 1000 ML IV (11:52)
[2018-05-05] MEDS: Metoclopramide 10 MG/2 ML Vial IV (12:02)
[2018-05-05] MEDS: DiphenhydrAMINE 50 MG/ML Syringe 25 MG IV (12:02)
[2018-05-05 12:07] LABS: Absolute Lymphocyte Count 1.22 X10^3/ul (0.83-4.51); Absolute Neutrophil Count 4.4 X10^3/uL (2.0-7.7); Basophil# 0.04 X10^3/uL; Basophil% 0.6 % (0-1); Eosinophil# 0.21 X10^3/uL; Eosinophils% 3.3 % (0-5); Hematocrit 43.5 % (40-54); Hemoglobin 14.3 g/dl (13.0-16.5); Lymphocyte # 1.22 X10^3/ul (4.0); Lymphocyte % 19.1 % (19-41); Mean Corp Hgb Conc 32.9 g/gl (32-36); Mean Corpuscular Hgb 29.5 pg (27.0-32.0); Mean Corpuscular Volume 89.9 fL (80-94); Mean Platelet Vol. 9.8 fl (6.2-12.0); Monocyte# 0.57 X10^3/uL; Monocyte% 8.9 % (0-10); Neutrophil # 4.35 X10^3/uL (2.7-7.7); Neutrophil % 67.9 % (47-70); Platelet Count 148 K/mm3 (150-450); RBC Distribution Width CV 13.8 % (11.6-14.6); RBC Distribution Width SD 45.3 fl (35.1-43.9); Red Blood Count 4.84 M/mm3 (4.6-6.2); White Blood Count 6.4 K/mm3 (4.4-11.0)
[2018-05-05 12:10] LABS: POSITIVE COUNT NO; POSITIVE DIFFERENTIAL NO; POSITIVE MORPHOLOGY NO
[2018-05-05 12:15] LABS: Anion Gap 11 (5-15); BUN 14 mg/dL (7-18); BUN/Creat Ratio 10.9 RATIO (10-20); Calcium,Total 8.4 mg/dL (8.5-10.1); Chloride 105 mmol/L (98-107); Creatinine, Serum 1.28 mg/dL (0.70-1.30); EST Glomerular Filtration Rate 60 mL/min (>60); Est Glom Filt Rate - Afr Amer 73 mL/min (>60); Estimated Creatinine Clearance 55.66 ml/min; Glucose 178 mg/dL (74-106); Potassium 3.7 mmol/L (3.5-5.1); Sodium Level 140 mmol/L (136-145)
[2018-05-05 12:17] LABS: Erythrocyte Sedimentation Rate 7 mm/hr (0-20)
--- NOTE | 2018-05-05 13:51 | ED.VISSUMM ---
- ER Visit Summary Date of Service: 05/05/18 Chief Complaint: [Headache] History of Present Illness: The patient is a 67 M [presents the emergency department complaint of a headache that started 5 days ago. Patient states the headaches been intermittently lasting hours at a time. Patient had similar headaches in the past but never one that lasted this long. Patient currently rates his headache as a 9 out of 10. Vision states that at times he feels like he is off balance. He denies any trauma to his head. He denies any falls. He denies nausea vomiting or photophobia. He denies any significant recent illness. Patient does have a history of diabetes, hypertension, high cholesterol, and coronary artery disease.] Physical Examination: [HEENT-PERRLA, EOMI. Cranial nerves II through XII grossly intact. TMs clear. Mucous membranes moist. No adenopathy. Cardiovascular-regular rate and rhythm without murmur or ectopy Lungs-clear to auscultation, chest wall stable without crepitus or subcu emphysema Abdomen-normoactive bowel sounds, soft, nontender, no rebound or rigidity, no peritoneal signs. Neuro jffg-stchrt-cjgh and heel hoff testing within normal limits, negative Romberg, negative pronator drift, fundi benign Extremities-intact ?4, normal range of motion, normal pulses, atraumatic] Test Results: [CBC with differential intentional weight of 6.4, hemoglobin 14, hematocrit 43.5. Chemistries unremarkable. Glucose is 178. CTA of the brain obtained showed a moderately large subdural hematoma on the right side with mild midline shift. Official CT results pending however I was called regarding the subdural by the radiologist.] Emergency Department Course and Treatment: [Case was discussed with patient. Initially I did medicate the patient with Reglan, normal saline, and Benadryl and he had some good pain relief with that. Was called by radiology to tell me that patient has a subdural hematoma. Being that we do not have neurosurgery available at [place] patient is requesting to go to [facility].] Treatment Plan: [Transfer] Disposition: [Transfer] Impression: [Subdural hematoma Cephalgia] This note was generated with SOL ELIXIRSation software. It may contain incorrect words, spelling, and punctuation that were not noted in review of the chart prior to signing ED Disposition - Plan for ED Patient: Referrals: Miguel Love MD [Primary Care Provider] -
--- NOTE | 2018-05-05 13:58 | ED.DCSUM_ITS ---
- ER Visit Summary Date of Service: 05/05/18 Chief Complaint: [Headache] History of Present Illness: The patient is a 67 M [presents the emergency department complaint of a headache that started 5 days ago. Patient states the headaches been intermittently lasting hours at a time. Patient had similar headaches in the past but never one that lasted this long. Patient currently rates his headache as a 9 out of 10. Vision states that at times he feels like he is off balance. He denies any trauma to his head. He denies any falls. He denies nausea vomiting or photophobia. He denies any significant recent illness. Patient does have a history of diabetes, hypertension, high cholesterol, and coronary artery disease.] Physical Examination: [HEENT-PERRLA, EOMI. Cranial nerves II through XII grossly intact. TMs clear. Mucous membranes moist. No adenopathy. Cardiovascular-regular rate and rhythm without murmur or ectopy Lungs-clear to auscultation, chest wall stable without crepitus or subcu emphysema Abdomen-normoactive bowel sounds, soft, nontender, no rebound or rigidity, no peritoneal signs. Neuro brgp-liymxx-cadd and heel hoff testing within normal limits, negative Romberg, negative pronator drift, fundi benign Extremities-intact ?4, normal range of motion, normal pulses, atraumatic] Test Results: [CBC with differential intentional weight of 6.4, hemoglobin 14, hematocrit 43.5. Chemistries unremarkable. Glucose is 178. CTA of the brain obtained showed a moderately large subdural hematoma on the right side with mild midline shift. Official CT results pending however I was called regarding the subdural by the radiologist.] Emergency Department Course and Treatment: [Case was discussed with patient. Initially I did medicate the patient with Reglan, normal saline, and Benadryl an d he had some good pain relief with that. Was called by radiology to tell me that patient has a subdural hematoma. Being that we do not have neurosurgery available at [place] patient is requesting to go to [facility].] Treatment Plan: [Transfer] Disposition: [Transfer] Impression: [Subdural hematoma Cephalgia] This note was generated with Pyroliaation software. It may contain incorrect words, spelling, and punctuation that were not noted in review of the chart prior to signing ED Disposition - Plan for ED Patient: Referrals: Miguel Love MD [Primary Care Provider] -
[2018-05-05 14:32] VITALS: BP 140/91; PULSE 65; RESP 16; O2SAT 96
--- NOTE | 2018-05-05 15:24 | ED.RN ---
CALLED FOR TRANSPORT AND NO ONE IS ABLE TO COME FOR 3 HOURS. LOGAN MARTIN IS TRYING TO GET AHOLD OF SOMEONE TO TAKE HIM.
[2018-05-05 15:30] VITALS: BP 133/88; PULSE 60; RESP 16; O2SAT 96
--- NOTE | 2018-05-05 15:31 | ED.RN ---
JOSHUA SANCHEZ GETTING VS ON PATIENT DISCUSSING TRANSFER TO PT. JOSHUA SANCHEZ STATES SO HAVE YOU HAD OTHER WORK AT [facility] DONE BEFORE? PT STATES PEOPLE KEEP SAYING [facility] AND I WILL NOT GO THERE, THEY'RE A PART OF [facility] AND I WON'T GO THERE. I'LL ONLY GO TO [facility]. JOSHUA SANCHEZ STATES OH I THINK THERE'S BEEN A MISUNDERSTANDING BECAUSE WE CONTACTED [facility], YOU DON'T WANT TO GO THERE, YOU WANT TO GO TO [facility]? PT STATES YES I WOULD REFUSE TO GO TO [facility], THEY'RE A PART OF THE [facility] JOSHUA SANCHEZ STATES LET ME GO TALK WITH THE DOCTOR JOSHUA SANCHEZ MAKES DR FENTON AWARE, DR FENTON SPEAKS WITH PATIENT AND IS WORKING ON MAKING ARRANGEMENTS WITH [facility].
[2018-05-05 16:34] VITALS: BP 144/95; PULSE 64; RESP 16; O2SAT 96
== END 2018-05-05 16:45 | disposition short-term general hospital (02) ==
LOC: ED 12:08
PROVIDERS: Emergency Provider Emergency Medicine; Family Provider Family Medicine; PCP Family Medicine
DX: I62.00 Nontraumatic subdural hemorrhage, unspecified (principal); I25.10 Atherosclerotic heart disease of native coronary artery without angina pectoris; E11.9 Type 2 diabetes mellitus without complications; I10 Essential (primary) hypertension; E78.00 Pure hypercholesterolemia, unspecified; K21.9 Gastro-esophageal reflux disease without esophagitis; Z79.82 Long term (current) use of aspirin; Z79.4 Long term (current) use of insulin; Z79.899 Other long term (current) drug therapy; Z87.891 Personal history of nicotine dependence; Z95.5 Presence of coronary angioplasty implant and graft
CPT/HCPCS: 70496; 80048; 85025; 85652; 96361; 96374; 96375; 99284; Q9967

== ENCOUNTER 2018-05-15 18:33 | Inpatient (IN) | payer MEDICARE, OTHER, SELFPAY ==
[2018-05-15 18:52] VITALS: BP 130/75; PULSE 63; RESP 18; TEMP 36.6; O2SAT 98; BMI 29.5; BMI 29.6
[2018-05-15 22:00] VITALS: BP 98/58; PULSE 66; RESP 16; TEMP 37.3; O2SAT 99
[2018-05-15] MEDS: Insulin Lispro 100 UNIT/ML INSULN.PEN SC (23:08)
[2018-05-15 23:15] LABS: Bedside Glucose 207 mg/dL (70-110)
[2018-05-16 06:05] LABS: Hematocrit 37.4 % (40-54); Hemoglobin 12.6 g/dl (13.0-16.5); Mean Corp Hgb Conc 33.7 g/gl (32-36); Mean Corpuscular Hgb 29.7 pg (27.0-32.0); Mean Corpuscular Volume 88.2 fL (80-94); Mean Platelet Vol. 10.9 fl (6.2-12.0); Platelet Count 159 K/mm3 (150-450); RBC Distribution Width CV 13.6 % (11.6-14.6); RBC Distribution Width SD 43.7 fl (35.1-43.9); Red Blood Count 4.24 M/mm3 (4.6-6.2)
[2018-05-16 06:07] VITALS: BMI 29.5
[2018-05-16 06:11] LABS: Scan Indicated on CBC? Y/N NO
[2018-05-16 06:19] LABS: Anion Gap 8 (5-15); BUN 18 mg/dL (7-18); BUN/Creat Ratio 17.6 RATIO (10-20); Calcium,Total 8.6 mg/dL (8.5-10.1); Chloride 104 mmol/L (98-107); Creatinine, Serum 1.02 mg/dL (0.70-1.30); EST Glomerular Filtration Rate 78 mL/min (>60); Est Glom Filt Rate - Afr Amer 94 mL/min (>60); Estimated Creatinine Clearance 69.85 ml/min; Glucose 175 mg/dL (74-106); Potassium 3.3 mmol/L (3.5-5.1); Sodium Level 138 mmol/L (136-145)
[2018-05-16] MEDS: Magnesium Hydroxide 30 ML UDC PO (06:19)
[2018-05-16 06:55] LABS: Bedside Glucose 135 mg/dL (70-110)
[2018-05-16 07:00] VITALS: PULSE 56; RESP 20; TEMP 37.1; O2SAT 94
[2018-05-16] MEDS: Carvedilol 3.125 MG TABLET PO ×2 (09:05→17:11)
[2018-05-16] MEDS: Aspirin E.C. 81 MG Tablet PO (09:06)
[2018-05-16] MEDS: Docusate Sodium 100 MG Capsule PO (09:06)
[2018-05-16] MEDS: Chlorthalidone 50 MG Tablet 25 MG PO (09:06)
[2018-05-16] MEDS: Pantoprazole Sodium 20 MG Tablet PO (09:06)
[2018-05-16 09:30] VITALS: BP 110/66; PULSE 66
--- NOTE | 2018-05-16 11:56 | PCM.HP.STD ---
History of Present Illness Date of Admission: 05/15/18 Chief Complaint: Debility status post subdural hematoma craniotomy The patient is a 67 year old male who is status post hospitalization at [facility] where he was sent from [place] emergency department because of a subdural hematoma on his right. Craniotomy was performed 05/11/18. He is previously living at home independently, goal of rehab is orthodox of prior level of functional independence. Appears that his neurosurgeon was Dr. Segura. He has a history of diabetes, and coronary artery disease as well as coronary artery stents. On aspirin and Plavix his coronary stents. He plans to go home living alone. He lives in a trailer which is one-story, he does have a few steps to negotiate but he also has a ramp. 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) LAURA (2.5X20 Promus Synergy) to RCA; pt to have staged procedure for PCI of ostial PDA History of acute inferior wall [place] (Chronic 12/23/17) HTN (hypertension) (Chronic) HLD (hyperlipidemia) (Chronic) Diabetes mellitus, type II (Chronic) GERD (gastroesophageal reflux disease) (Chronic) Medical History: Medical History (Last Reviewed 05/16/18 @ 12:01 by Drake Man MD) Atherosclerotic heart disease of [place] coronary artery without angina pectoris (Chronic) Onset Date: 12/23/17 I25.10 LAURA (2.5X20 Promus Synergy) to RCA; pt to have staged procedure for PCI of ostial PDA History of acute inferior wall [place] (Chronic) Onset Date: 12/23/17 I25.2 HTN (hypertension) (Chronic) I10 HLD (hyperlipidemia) (Chronic) E78.5 Diabetes mellitus, type II (Chronic) E11.9 GERD (gastroesophageal reflux disease) (Chronic) K21.9 Allergies lisinopril Adverse Reaction (Intermediate, Verified 05/05/18 11:41) COUGH Home Medications: Ambulatory Orders Medication Instructions Recorded Aspirin E.C. [Ecotrin] 81 mg PO DAILY 12/23/17 Atorvastatin Calcium [Lipitor] 80 mg PO QHS 12/23/17 Lactobacillus Acidophilus 1 cap PO DAILY 12/23/17 [Acidophilus] Lansoprazole 15 mg PO DAILY 12/23/17 Psyllium [Metamucil] 1 packet PO DAILY 12/23/17 Nitroglycerin [Nitrostat] 0.4 mg SUBLINGUAL Q5M PRN #10 tab 12/25/17 Carvedilol [Coreg (Beta Kaz)] 3.125 mg PO BID 05/15/18 Chlorthalidone [Hygroton] 25 mg PO DAILY 05/15/18 Docusate Sodium [Colace] 100 mg PO DAILY 05/15/18 Melatonin 3 mg Tablet 3 mg PRN 05/15/18 Polyethylene Glycol 3350 [Glycolax] 17 gm 05/15/18 Surgical History: Surgical History (Last Reviewed 05/16/18 @ 12:01 by Drake Man MD) Stented coronary artery (Chronic) Onset Date: 01/22/18 Z95.5 LAURA (2.5X20 Promus Synergy) to mid RCA 12/23/17; LAURA (2.25 X 12 Promus Synergy) to distal RCA/proximal PDA, as well as POBA to ostial PL Branch with 2.0 X12 balloon 01/22/18 Surgical History: - - PCI x 6, appendectomy, eye surgery in youth. Smoking Status: Former smoker Tobacco Use: Non-smoker - *Family History Maternal Family History: Family History (Last Reviewed 05/16/18 @ 12:02 by Drake Man MD) Father Negative for ASCVD Mother Negative for ASCVD History Items: - - Patient denies any marked maternal or paternal family history of heart disease, diabetes, cancer. Paternal Family History: Family History (Last Reviewed 05/16/18 @ 12:02 by Drake Man MD) Father Negative for ASCVD Mother Negative for ASCVD History Items: - - Patient denies any marked maternal or paternal family history of heart disease, diabetes, cancer. Review of Systems Constitutional: Denies: Chills, Fever, Weight Change HEENT: Denies: Head Aches, Sinus Congestion, Sinus Drainage Cardiovascular: Denies: Chest Pain, Palpitations Respiratory: Denies: Cough, Shortness of breath at rest, Sputum production Gastrointestinal: Denies: Abdominal Pain, Nausea, Vomiting Genitourinary: Denies: Dysuria Musculoskeletal: Denies: Joint Pain, Joint Tenderness Skin: Denies: Rash, Wounds Neurological: Reports: Balance problems, Incoordination. Denies: Focal weakness, Numbness, Tingling Psychiatric: Denies: Anxiety, Depression, Homicidal Ideations, Suicidal Ideations Hematologic/ Lymphatic: Denies: Easy Bruising, Easy Bleeding VTE Information - Inpt Only VTE Present on Admission: Yes VTE Pharm Prophylaxis ordered?: Yes - Physical Exam General: Alert, Oriented x3, Cooperative, No apparent distress HEENT: Atraumatic, PERRLA, EOMI Lungs: Clear to auscultation Cardiovascular: Regular rate Abdomen: Bowel Sounds Present Extremities: No Calf Tenderness Musculoskeletal: No Tenderness to Palpation of Joints or Extremities Neurological: Cranial nerves II-XII grossly intact, Deep Tendon Reflexes 2+/4 and Symmetrical, Neuro grossly intact, Motor Exam 5/5 strength throughout Psych/Mental Status: Normal Affect, Alert and oriented to time, place, person, mood and affect Vital Signs Temp Pulse Resp BP Pulse Ox 37.1 C 56 L 20 H 98/58 L 94 05/16/18 07:00 05/16/18 07:00 05/16/18 07:00 05/15/18 22:00 05/16/18 07:00 Oxygen Delivery Method Room Air Weight: 88.2 kg Body Mass Index (BMI) 29.5 Intake and Output for Last 24 Hours 05/14/18 05/15/18 05/16/18 23:59 23:59 23:59 Intake Total 360 / 360 Output Total 250 / 250 Balance 110 / 110 Laboratory Tests Past 24 Hrs 05/16/18 05/16/18 05:02 05:02 WBC 7.0 RBC 4.24 L Hgb 12.6 L Hct 37.4 L MCV 88.2 MCH 29.7 MCHC 33.7 RDW 13.6 RDW Differential 43.7 Plt Count 159 MPV 10.9 Sodium 138 Potassium 3.3 L Chloride 104 Carbon Dioxide 26.0 Anion Gap 8 BUN 18 Creatinine 1.02 Estim Creat Clear Calc 69.85 Est GFR (MDRD) Af Amer 94 Est GFR (MDRD) Non-Af 78 BUN/Creatinine Ratio 17.6 Glucose 175 H Calcium 8.6 POC Glucose 05/16/18 05/15/18 06:45 22:53 POC Glucose 135 H 207 H Current Medications Generic Name Dose Route Start Last Admin Trade Name Freq PRN Reason Stop Dose Admin Aspirin 81 mg 05/16/18 08:00 05/16/18 09:06 Ecotrin PO 81 mg DAILYCM [facility] Administration Atorvastatin Calcium 80 mg 05/16/18 22:00 Lipitor PO QHS [facility] Bisacodyl 10 mg 05/15/18 22:39 Dulcolax RECTAL .PRN X 1 PRN Constipation Carvedilol 3.125 mg 05/16/18 08:00 05/16/18 09:05 Coreg PO 3.125 mg BIDCM [facility] Administration Chlorthalidone 25 mg 05/16/18 10:00 05/16/18 09:06 Hygroton PO 25 mg DAILY [facility] Administration Enoxaparin Sodium 40 mg 05/17/18 06:00 Lovenox SC DAILY@0600 [facility] Enoxaparin Sodium 40 mg 05/16/18 11:47 Lovenox SC 05/16/18 11:48 X1 ONE Insulin Human Lispro 0 unit 05/15/18 22:45 05/16/18 06:45 Humalog Kwikpen (Bkc) SC Not Given ACHS [facility] Protocol Lactobacillus Acidophilus 1 tablet 05/16/18 10:00 05/16/18 09:05 Acidophilus PO 1 tablet DAILY [facility] Administration Magnesium Hydroxide 30 ml 05/15/18 22:39 05/16/18 06:19 Milk Of Magnesia PO 30 ml .PRN X 1 PRN Administration Constipation Melatonin 3 mg 05/16/18 22:00 Melatonin PO QHS [facility] Nitroglycerin 0.4 mg 05/15/18 22:24 Nitrostat SUBLINGUAL Q5M PRN Angina pain Pantoprazole Sodium 20 mg 05/16/18 10:00 05/16/18 09:06 Protonix PO 20 mg DAILY [facility] Administration Polyethylene Glycol 17 gm 05/16/18 10:00 Miralax PO DAILY PRN PRN CONSTIPATION Psyllium Hydrophilic Mucilloid 1 packet 05/16/18 10:00 05/16/18 09:14 Metamucil PO Not Given DAILY [facility] Senna/Docusate Sodium 2 tablet 05/16/18 10:00 Senokot-S, Elizabeth-Colace PO BID [facility] Assessment/Plan All Active Problems (Last Reviewed 05/16/18 @ 12:01 by Drake Man MD) STEMI (ST elevation myocardial infarction) (Resolved) Ability status post craniotomy for subdural hematoma in this previously functionally independent male complicated by coronary artery disease diabetes and hypertension. Goal of rehab is orthodox of prior level of functional independence. Plan: Physical therapy for gait and balance Occupational Therapy for ADLs Speech therapy for speech, swallowing and cognition. Protocol PRN analgesics Continue antihypertensives and follow Continue anti-glycemic agents and follow Proton pump inhibitor Aspirin and Plavix for now
--- NOTE | 2018-05-16 12:01 | HP.PCM_ITS ---
History of Present Illness Date of Admission: 05/15/18 Chief Complaint: Debility status post subdural hematoma craniotomy The patient is a 67 year old male who is status post hospitalization at [facility] where he was sent from [place] emergency department because of a subdural hematoma on his right. Craniotomy was performed 05/11/18. He is previously living at home independently, goal of rehab is zoroastrianism of prior level of functional independence. Appears that his neurosurgeon was Dr. Segura. He has a history of diabetes, and coronary artery disease as well as coronary artery stents. On aspirin and Plavix his coronary stents. He plans to go home living alone. He lives in a trailer which is one-story, he does have a few steps to negotiate but he also has a ramp. 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) LAURA (2.5X20 Promus Synergy) to RCA; pt to have staged procedure for PCI of ostial PDA History of acute inferior wall [place] (Chronic 12/23/17) HTN (hypertension) (Chronic) HLD (hyperlipidemia) (Chronic) Diabetes mellitus, type II (Chronic) GERD (gastroesophageal reflux disease) (Chronic) Medical History: Medical History (Last Reviewed 05/16/18 @ 12:01 by Drake Man MD) Atherosclerotic heart disease of [place] coronary artery without angina pectoris (Chronic) Onset Date: 12/23/17 I25.10 LAURA (2.5X20 Promus Synergy) to RCA; pt to have staged procedure for PCI of ostial PDA History of acute inferior wall [place] (Chronic) Onset Date: 12/23/17 I25.2 HTN (hypertension) (Chronic) I10 HLD (hyperlipidemia) (Chronic) E78.5 Diabetes mellitus, type II (Chronic) E11.9 GERD (gastroesophageal reflux disease) (Chronic) K21.9 Allergies lisinopril Adverse Reaction (Intermediate, Verified 05/05/18 11:41) COUGH Home Medications: Ambulatory Orders Medication Instructions Recorded Aspirin E.C. [Ecotrin] 81 mg PO DAILY 12/23/17 Atorvastatin Calcium [Lipitor] 80 mg PO QHS 12/23/17 Lactobacillus Acidophilus 1 cap PO DAILY 12/23/17 [Acidophilus] Lansoprazole 15 mg PO DAILY 12/23/17 Psyllium [Metamucil] 1 packet PO DAILY 12/23/17 Nitroglycerin [Nitrostat] 0.4 mg SUBLINGUAL Q5M PRN #10 tab 12/25/17 Carvedilol [Coreg (Beta Kaz)] 3.125 mg PO BID 05/15/18 Chlorthalidone [Hygroton] 25 mg PO DAILY 05/15/18 Docusate Sodium [Colace] 100 mg PO DAILY 05/15/18 Melatonin 3 mg Tablet 3 mg PRN 05/15/18 Polyethylene Glycol 3350 [Glycolax] 17 gm 05/15/18 Surgical History: Surgical History (Last Reviewed 05/16/18 @ 12:01 by Drake Man MD) Stented coronary artery (Chronic) Onset Date: 01/22/18 Z95.5 LAURA (2.5X20 Promus Synergy) to mid RCA 12/23/17; LAURA (2.25 X 12 Promus Synergy) to distal RCA/proximal PDA, as well as POBA to ostial PL Branch with 2.0 X12 balloon 01/22/18 Surgical History: - - PCI x 6, appendectomy, eye surgery in youth. Smoking Status: Former smoker Tobacco Use: Non-smoker - *Family History Maternal Family History: Family History (Last Reviewed 05/16/18 @ 12:02 by Drake Man MD) Father Negative for ASCVD Mother Negative for ASCVD History Items: - - Patient denies any marked maternal or paternal family history of heart disease, diabetes, cancer. Paternal Family History: Family History (Last Reviewed 05/16/18 @ 12:02 by Drake Man MD) Father Negative for ASCVD Mother Negative for ASCVD History Items: - - Patient denies any marked maternal or paternal family history of heart disease, diabetes, cancer. Review of Systems Constitutional: Denies: Chills, Fever, Weight Change HEENT: Denies: Head Aches, Sinus Congestion, Sinus Drainage Cardiovascular: Denies: Chest Pain, Palpitations Respiratory: Denies: Cough, Shortness of breath at rest, Sputum production Gastrointestinal: Denies: Abdominal Pain, Nausea, Vomiting Genitourinary: Denies: Dysuria Musculoskeletal: Denies: Joint Pain, Joint Tenderness Skin: Denies: Rash, Wounds Neurological: Reports: Balance problems, Incoordination. Denies: Focal weakness, Numbness, Tingling Psychiatric: Denies: Anxiety, Depression, Homicidal Ideations, Suicidal Ideations Hematologic/ Lymphatic: Denies: Easy Bruising, Easy Bleeding VTE Information - Inpt Only VTE Present on Admission: Yes VTE Pharm Prophylaxis ordered?: Yes - Physical Exam General: Alert, Oriented x3, Cooperative, No apparent distress HEENT: Atraumatic, PERRLA, EOMI Lungs: Clear to auscultation Cardiovascular: Regular rate Abdomen: Bowel Sounds Present Extremities: No Calf Tenderness Musculoskeletal: No Tenderness to Palpation of Joints or Extremities Neurological: Cranial nerves II-XII grossly intact, Deep Tendon Reflexes 2+/4 and Symmetrical, Neuro grossly intact, Motor Exam 5/5 strength throughout Psych/Mental Status: Normal Affect, Alert and oriented to time, place, person, mood and affect Vital Signs Temp Pulse Resp BP Pulse Ox 37.1 C 56 L 20 H 98/58 L 94 05/16/18 07:00 05/16/18 07:00 05/16/18 07:00 05/15/18 22:00 05/16/18 07:00 Oxygen Delivery Method Room Air Weight: 88.2 kg Body Mass Index (BMI) 29.5 Intake and Output for Last 24 Hours 05/14/18 05/15/18 05/16/18 23:59 23:59 23:59 Intake Total 360 / 360 Output Total 250 / 250 Balance 110 / 110 Laboratory Tests Past 24 Hrs 05/16/18 05/16/18 05:02 05:02 WBC 7.0 RBC 4.24 L Hgb 12.6 L Hct 37.4 L MCV 88.2 MCH 29.7 MCHC 33.7 RDW 13.6 RDW Differential 43.7 Plt Count 159 MPV 10.9 Sodium 138 Potassium 3.3 L Chloride 104 Carbon Dioxide 26.0 Anion Gap 8 BUN 18 Creatinine 1.02 Estim Creat Clear Calc 69.85 Est GFR (MDRD) Af Amer 94 Est GFR (MDRD) Non-Af 78 BUN/Creatinine Ratio 17.6 Glucose 175 H Calcium 8.6 POC Glucose 05/16/18 05/15/18 06:45 22:53 POC Glucose 135 H 207 H Current Medications Generic Name Dose Route Start Last Admin Trade Name Freq PRN Reason Stop Dose Admin Aspirin 81 mg 05/16/18 08:00 05/16/18 09:06 Ecotrin PO 81 mg DAILYCM [facility] Administration Atorvastatin Calcium 80 mg 05/16/18 22:00 Lipitor PO QHS [facility] Bisacodyl 10 mg 05/15/18 22:39 Dulcolax RECTAL .PRN X 1 PRN Constipation Carvedilol 3.125 mg 05/16/18 08:00 05/16/18 09:05 Coreg PO 3.125 mg BIDCM [facility] Administration Chlorthalidone 25 mg 05/16/18 10:00 05/16/18 09:06 Hygroton PO 25 mg DAILY [facility] Administration Enoxaparin Sodium 40 mg 05/17/18 06:00 Lovenox SC DAILY@0600 [facility] Enoxaparin Sodium 40 mg 05/16/18 11:47 Lovenox SC 05/16/18 11:48 X1 ONE Insulin Human Lispro 0 unit 05/15/18 22:45 05/16/18 06:45 Humalog Kwikpen (Bkc) SC Not Given ACHS [facility] Protocol Lactobacillus Acidophilus 1 tablet 05/16/18 10:00 05/16/18 09:05 Acidophilus PO 1 tablet DAILY [facility] Administration Magnesium Hydroxide 30 ml 05/15/18 22:39 05/16/18 06:19 Milk Of Magnesia PO 30 ml .PRN X 1 PRN Administration Constipation Melatonin 3 mg 05/16/18 22:00 Melatonin PO QHS [facility] Nitroglycerin 0.4 mg 05/15/18 22:24 Nitrostat SUBLINGUAL Q5M PRN Angina pain Pantoprazole Sodium 20 mg 05/16/18 10:00 05/16/18 09:06 Protonix PO 20 mg DAILY [facility] Administration Polyethylene Glycol 17 gm 05/16/18 10:00 Miralax PO DAILY PRN PRN CONSTIPATION Psyllium Hydrophilic Mucilloid 1 packet 05/16/18 10:00 05/16/18 09:14 Metamucil PO Not Given DAILY [facility] Senna/Docusate Sodium 2 tablet 05/16/18 10:00 Senokot-S, Elizabeth-Colace PO BID [facility] Assessment/Plan All Active Problems (Last Reviewed 05/16/18 @ 12:01 by Drake Man MD) STEMI (ST elevation myocardial infarction) (Resolved) Ability status post craniotomy for subdural hematoma in this previously functionally independent male complicated by coronary artery disease diabetes and hypertension. Goal of rehab is zoroastrianism of prior level of functional independence. Plan: Physical therapy for gait and balance Occupational Therapy for ADLs Speech therapy for speech, swallowing and cognition. Protocol PRN analgesics Continue antihypertensives and follow Continue anti-glycemic agents and follow Proton pump inhibitor Aspirin and Plavix for now
--- NOTE | 2018-05-16 12:04 | REHABEVAL_ITS ---
Admission Information Status Changes from Prescreening?: No changes Identified Actual Problem List:: Bleeding, Falls, Pain, ALteration in Cmfrt, Cognitve Impr/Memory Loss, Mobility Impaired, Self Care Deficit, Diabetes, Hyperglycemia, BP, Hypertension, Ineffect.D/C Plan r/t Psy Potential Problem List:: DVT, Bleeding, Infection, UTI, Aspiration, Falls, Skin Integrity, Depression Risk of Complications DVT: LMWH, CORINNE Hose, Sequential Compression Device Bleeding: Monitor Lab Values, Nursing to Teach Precautions for anti-coagulation therapy., Wound, if applicable, to be assessed every shift., Stroke patients assessed for lethargy or change in status. Infection: Clinical Staff to Monitor for S/S of infection:, S/S of infection include fever, redness, warmth, etc. Urinary Tract Infection: Monitor for frequency, burning, discomfort, or incontinence., Nursing will obtain urine sample for urinalysis and C&S when ordered. Aspiration: Clinical staff will monitor for coughing, drooling, congestion., Speech will evaluate swallowing and dsyphasia., Nursing will monitor patient swallowing during meals. Falls: Patient will be evaluated for Fall Precautions, Patient will be placed on Fall Precautions as indicated per protocol. Skin Breakdown: Nursing will assess skin daily using assessment tool., Nursing will place on Skin Breakdown Precautions as indicated. Pain: Clinical staff will assess patient's pain level per protocol., Medications will be given, if needed, and the pain level reassessed., Other methods: Massage, distraction, decrease stimulus, etc. used PRN. Plan of Care Patient requires physician specializing in physical medicine and rehab oversight to provide close medical supervision of rehab issues including: Pain Management, Sleep Problems, Bowel and Bladder, Medical and co-morbidity Management, DVT prophylaxis, Rehabilitation Leadership, Coordination of treatment team Patient needs Physical Therapy: For a minimum of 1 hour, At least 5 out of 7 days Patient needs Physical Therapy to improve:: Mobility, Mobility, Mobility, Strengthening, Transfers, Stretching, ROM, Endurance, Stairs, Gait, Balance Patient needs Occupational Therapy: For a minimum of 1 hour, At least 5 out of 7 days Patient needs Occupational Therapy to improve ADL's incl.: Eating, Grooming, Bathing, Dressing, Toileting, Toilet transfers, Community Reintegration, Higher functioning activities, Household tasks, Adaptive Equipment, Splinting, Other activities as determined Patient requires speech therapy: For a minimum of 1 hour, At least 5 out of 7 days Patient requires speech therapy for: Swallowing, Cognition, Language Skills, Compensatory Strategies Patient requires 24/ Rehabilitation Nursing for: Pain Issues, Identifying and preventing risk factors, Monitoring and reporting current medical conditions, Assisting with ambulation, transfer, and all ADL's, Teaching patients about disease process and medications, Family teaching, Providing safe environment, Bowel and Bladder Issues, Skin integrity, Medication Management Patient needs Human Resources Specialist/ Case Management for: Discharge Planning, Arranging Home Equipment or Services, Family Interventions Patient needs Dietary and Nutrition Services for: Adequate Nutrition, Nutritional Supplements, Nutritional Education Goals Patient will remain: free from falls, or injury at time of discharge. Patient will perform bed mobility at: MOD I level of assist. Patient will complete transfers from bed to chair at: MOD I level of assist. Patient will ambulate: 100 feet, with MOD I assist, with LRD Patient will complete upper body dressing at: MOD I level of assist. Patient will complete lower body dressing at: MOD I level of assist. Patient will complete toileting at: MOD I level of assist. Patient will perform bathing at: MOD I level of assist. Patient will complete grooming at: MOD I level of assist. Patient will complete home management skills at: MOD I level of assist. Patient will achieve: 12 stairs, at MOD I assist Patient will have pain level of: of 3 or less Patient's skin will: remain intact, free from infection. Patient will receive: adequate nutrition. Discharge Planning Pt Prognosis for Sig. Practical Improv. w/in Reasonable Time: Good Anticipated D/C Destination: Home with Outpt Therapy Was Preadmission Assessment Accurate?: Yes
[2018-05-16] MEDS: Insulin Lispro 100 UNIT/ML INSULN.PEN SC ×2 (13:03→21:06)
[2018-05-16] MEDS: Senna/Docusate Sodium 1 Tablet 2 TABLET PO ×2 (13:03→21:12)
[2018-05-16] MEDS: Enoxaparin 40 MG/0.4 ML Syringe SC (13:03)
[2018-05-16 13:16] LABS: Bedside Glucose 221 mg/dL (70-110)
--- NOTE | 2018-05-16 13:30 | PCM.PN.HOSP ---
Subjective: 67-year-old male who was recently admitted at [facility] for a subdural hematoma on the right. He was on aspirin and Plavix, but he does not remember a traumatic episode. He had undergo a craniotomy on 05/11/2018, and was now transferred to rehab with a goal of going back home where he lives alone. Per cardiology it is okay for him to continue only on aspirin at this point given his subdural hematoma. Currently he feels okay though he says his biggest issue is feeling dizzy when he bends over. He is on Coreg 3.125 and in his previous medical record has been noted to be bradycardic at times. Vitals/I&O's: Vital Signs Temp Pulse Resp BP Pulse Ox 98.7 F 66 20 H 110/66 94 05/16/18 07:00 05/16/18 09:30 05/16/18 07:00 05/16/18 09:30 05/16/18 07:00 Oxygen Delivery Method Room Air Weight: 194 lb 7.163 oz Body Mass Index (BMI) 29.5 Intake and Output for Last 24 Hours 05/14/18 05/15/18 05/16/18 23:59 23:59 23:59 Intake Total 360 / 360 Output Total 250 / 250 Balance 110 / 110 General: Alert, Oriented x3, Cooperative, No apparent distress HEENT: Atraumatic, PERRLA, EOMI, Normocephalic, - - Right side of his head is shaved Oral: Moist Mucosa Neck: Supple, No JVD, Trachea Midline Lungs: Clear to auscultation, Normal air movement, No rhonchi, No wheeze, No rales Cardiovascular: Regular rate, Regular Rhythm, Normal S1, Normal S2, No murmurs Abdomen: Soft, Non Tender, Non-Distended, No Hepato-splenomegaly Extremities: No edema, Capillary Refill Less than 3 Seconds Skin: No rashes, No breakdown Neurological: Neuro grossly intact, Sensory exam intact to light touch and pain Psych/Mental Status: Normal Affect, Appropriate Laboratory Results 05/15/18 22:53: POC Glucose 207 H 05/16/18 05:02: WBC 7.0, RBC 4.24 L, Hgb 12.6 L, Hct 37.4 L, MCV 88.2, MCH 29.7, MCHC 33.7, RDW 13.6, RDW Differential 43.7, Plt Count 159, MPV 10.9 05/16/18 05:02: Sodium 138, Potassium 3.3 L, Chloride 104, Carbon Dioxide 26.0, Anion Gap 8, BUN 18, Creatinine 1.02, Estim Creat Clear Calc 69.85, Est GFR (MDRD) Af Amer 94, Est GFR (MDRD) Non-Af 78, BUN/Creatinine Ratio 17.6, Glucose 175 H, Calcium 8.6 05/16/18 06:45: POC Glucose 135 H 05/16/18 13:02: POC Glucose 221 H Current [facility]ations [facility] Last Admin: 05/16/18 09:06 Dose: 81 mg Atorvastatin Calcium (Lipitor) 80 mg PO QHS [facility] Bisacodyl (Dulcolax) 10 mg RECTAL .PRN X 1 PRN PRN Reason: Constipation Carvedilol (Coreg) [facility] Last Admin: 05/16/18 09:05 Dose: 3.125 mg Chlorthalidone (Hygroton) 25 mg PO DAILY [facility] Last Admin: 05/16/18 09:06 Dose: 25 mg Enoxaparin Sodium (Lovenox) 40 mg SC DAILY@0600 [facility] Insulin Human Lispro (Humalog Kwikpen (Bkc)) 0 unit SC [facility]; Protocol Last Admin: 05/16/18 13:03 Dose: 2 units Lactobacillus Acidophilus (Acidophilus) 1 tablet PO DAILY [facility] Last Admin: 05/16/18 09:05 Dose: 1 tablet Magnesium Hydroxide (Milk Of Magnesia) 30 ml PO .PRN X 1 PRN PRN Reason: Constipation Last Admin: 05/16/18 06:19 Dose: 30 ml Melatonin (Melatonin) 3 mg PO QHS [facility] Nitroglycerin (Nitrostat) 0.4 mg SUBLINGUAL Q5M PRN PRN Reason: Angina pain Pantoprazole Sodium (Protonix) 20 mg PO DAILY [facility] Last Admin: 05/16/18 09:06 Dose: 20 mg Polyethylene Glycol (Miralax) 17 gm PO DAILY PRN PRN PRN Reason: CONSTIPATION Psyllium Hydrophilic Mucilloid (Metamucil) 1 packet PO DAILY [facility] Last Admin: 05/16/18 09:14 Dose: Not Given Senna/Docusate Sodium (Senokot-S, Elizabeth-Colace) 2 tablet PO BID [facility] Last Admin: 05/16/18 13:03 Dose: 2 tablet Medical Necessity - Tobacco Use Smoking Status: Former smoker Tobacco Use: Non-smoker Assessment/Plan All Active Problems (Last Reviewed 05/16/18 @ 12:01 by Drake Man MD) STEMI (ST elevation myocardial infarction) (Resolved) 1. Subdural hematoma -Status post craniotomy, can continue with aspirin -Continue with rehab 2. CAD status post stent/HTN/HLD -Previously was on aspirin and Plavix, however given his subdural hematoma we will continue with just aspirin -Continue with Coreg, chlorthalidone, and Lipitor -His history of bradycardia times to having had to be given atropine, will monitor his heart rate and blood pressure closely may need to discontinue the Coreg and switch to a pure beta-daniela. 3. DM 2 -Previous A1c in November was 6.1 -He states that he was on 24 units of 70/30 twice daily, however he has lost a significant amount of weight and I do not see this medication on his home medication list. -We will continue with his sliding scale insulin to make adjustments as needed 4. GERD -Stable -continue with Protonix DVT: Lovenox Code Visit Inpatient E&M: 65941 Subs Hosp L3
--- NOTE | 2018-05-16 13:35 | PN_ITS ---
Subjective: 67-year-old male who was recently admitted at [facility] for a subdural hematoma on the right. He was on aspirin and Plavix, but he does not remember a traumatic episode. He had undergo a craniotomy on 05/11/2018, and was now transferred to rehab with a goal of going back home where he lives alone. Per cardiology it is okay for him to continue only on aspirin at this point given his subdural hematoma. Currently he feels okay though he says his biggest issue is feeling dizzy when he bends over. He is on Coreg 3.125 and in his previous medical record has been noted to be bradycardic at times. Vitals/I&O's: Vital Signs Temp Pulse Resp BP Pulse Ox 98.7 F 66 20 H 110/66 94 05/16/18 07:00 05/16/18 09:30 05/16/18 07:00 05/16/18 09:30 05/16/18 07:00 Oxygen Delivery Method Room Air Weight: 194 lb 7.163 oz Body Mass Index (BMI) 29.5 Intake and Output for Last 24 Hours 05/14/18 05/15/18 05/16/18 23:59 23:59 23:59 Intake Total 360 / 360 Output Total 250 / 250 Balance 110 / 110 General: Alert, Oriented x3, Cooperative, No apparent distress HEENT: Atraumatic, PERRLA, EOMI, Normocephalic, - - Right side of his head is shaved Oral: Moist Mucosa Neck: Supple, No JVD, Trachea Midline Lungs: Clear to auscultation, Normal air movement, No rhonchi, No wheeze, No rales Cardiovascular: Regular rate, Regular Rhythm, Normal S1, Normal S2, No murmurs Abdomen: Soft, Non Tender, Non-Distended, No Hepato-splenomegaly Extremities: No edema, Capillary Refill Less than 3 Seconds Skin: No rashes, No breakdown Neurological: Neuro grossly intact, Sensory exam intact to light touch and pain Psych/Mental Status: Normal Affect, Appropriate Laboratory Results 05/15/18 22:53: POC Glucose 207 H 05/16/18 05:02: WBC 7.0, RBC 4.24 L, Hgb 12.6 L, Hct 37.4 L, MCV 88.2, MCH 29.7, MCHC 33.7, RDW 13.6, RDW Differential 43.7, Plt Count 159, MPV 10.9 05/16/18 05:02: Sodium 138, Potassium 3.3 L, Chloride 104, Carbon Dioxide 26.0, Anion Gap 8, BUN 18, Creatinine 1.02, Estim Creat Clear Calc 69.85, Est GFR (MDRD) Af Amer 94, Est GFR (MDRD) Non-Af 78, BUN/Creatinine Ratio 17.6, Glucose 175 H, Calcium 8.6 05/16/18 06:45: POC Glucose 135 H 05/16/18 13:02: POC Glucose 221 H Current [facility] Admin: 05/16/18 09:06 Dose: 81 mg Atorvastatin Calcium (Lipitor) 80 mg PO QHS [facility] Bisacodyl (Dulcolax) 10 mg RECTAL .PRN X 1 PRN PRN Reason: Constipation [facility] ([facility]g) [facility] Last Admin: 05/16/18 09:05 Dose: 3.125 mg Chlorthalidone (Hygroton) 25 mg PO DAILY [facility] Last Admin: 05/16/18 09:06 Dose: 25 mg Enoxaparin Sodium (Lovenox) 40 mg SC DAILY@0600 [facility]S [facility] 234 [facility]EDS AT [facility] Insulin Human Lispro (Humalog Kwikpen (Bkc)) 0 unit SC [facility]; Protocol Last Admin: 05/16/18 13:03 Dose: 2 units Lactobacillus Acidophilus (Acidophilus) 1 tablet PO DAILY [facility]S [facility] 234 BEDS AT [facility] Last Admin: 05/16/18 09:05 Dose: 1 tablet Magnesium Hydroxide (Milk Of Magnesia) 30 ml PO .PRN X 1 PRN PRN Reason: Constipation Last Admin: 05/16/18 06:19 Dose: 30 ml Melatonin (Melatonin) 3 mg PO QHS [facility]S [facility] 234 [facility]S AT [facility] Nitroglycerin (Nitrostat) 0.4 mg SUBLINGUAL Q5M PRN PRN Reason: Angina pain Pantoprazole Sodium (Protonix) 20 mg PO DAILY [facility]S [facility] 234 BEDS AT [facility] Last Admin: 05/16/18 09:06 Dose: 20 mg Polyethylene Glycol (Miralax) 17 gm PO DAILY PRN PRN PRN Reason: CONSTIPATION Psyllium Hydrophilic Mucilloid (Metamucil) 1 packet PO DAILY [facility]S [facility] 234 BEDS AT [facility] Last Admin: 05/16/18 09:14 Dose: Not Given Senna/Docusate Sodium (Senokot-S, Elizabeth-Colace) 2 tablet PO BID [facility] Last Admin: 05/16/18 13:03 Dose: 2 tablet Medical Necessity - Tobacco Use Smoking Status: Former smoker Tobacco Use: Non-smoker Assessment/Plan All Active Problems (Last Reviewed 05/16/18 @ 12:01 by Drake Man MD) STEMI (ST elevation myocardial infarction) (Resolved) 1. Subdural hematoma -Status post craniotomy, can continue with aspirin -Continue with rehab 2. CAD status post stent/HTN/HLD -Previously was on aspirin and Plavix, however given his subdural hematoma we will continue with just aspirin -Continue with Coreg, chlorthalidone, and Lipitor -His history of bradycardia times to having had to be given atropine, will monitor his heart rate and blood pressure closely may need to discontinue the Coreg and switch to a pure beta-daniela. 3. DM 2 -Previous A1c in November was 6.1 -He states that he was on 24 units of 70/30 twice daily, however he has lost a significant amount of weight and I do not see this medication on his home medication list. -We will continue with his sliding scale insulin to make adjustments as needed 4. GERD -Stable -continue with Protonix DVT: Lovenox Code Visit Inpatient E&M: 94085 Subs Hosp L3
[2018-05-16 14:01] VITALS: BMI 29.5
[2018-05-16 14:10] VITALS: O2SAT 94
--- NOTE | 2018-05-16 16:07 | CASEMGMT ---
Reviewed and agree with SW student documentation this day. THEO Dye
--- NOTE | 2018-05-16 16:26 | CHAPLAIN ---
Type of Pastoral Visit _x__ Initial Visit ___ Follow-up Visit ___ On-call Visit ___ General Patient Visit ___ Spiritual Assessment ___ Family Conference ___ Bereavement ___ Rapid Response ___ Code Blue ___ Other (describe below) Pastoral Care Referral From _x__ Patient ___ Family ___ Nurse ___ Physician ___ Cigarette Machine Operator ___ Veterans Rehabilitation Counselor ___ Other (describe below) Sacrament/Intervention _x__ Active listening ___ Anointing ___ Christian ___ Bereavement ___ Communion _x__ Kriss exploration ___ _x__ Life review _x__ Prayer ___ Reconciliation ___ Sacrament of Sick _x__ Supportive presence ___ Wedding ___ Other (describe below) Pastoral Comments patient is very talkative and gives many details about life, health, relationships, and kriss; pt says he is growing in his willingness to find spirituality and God in his life;
[2018-05-16 16:56] LABS: Bedside Glucose 147 mg/dL (70-110)
[2018-05-16] MEDS: Atorvastatin Calcium 80 MG Tablet PO (21:06)
[2018-05-16] MEDS: MELATONIN 3 MG TABLET PO (21:07)
[2018-05-16 21:09] VITALS: BP 98/65; PULSE 59; RESP 18; TEMP 37.4
[2018-05-16 21:11] LABS: Bedside Glucose 159 mg/dL (70-110)
[2018-05-16 21:50] VITALS: BMI 29.5
--- NOTE | 2018-05-17 06:35 | NURSING ---
Pocket knife found in room; Pt states it's to open mail. Informed pt knife will be locked up in med room.
[2018-05-17 06:36] LABS: Bedside Glucose 139 mg/dL (70-110)
[2018-05-17 06:58] VITALS: O2SAT 92
[2018-05-17] MEDS: Enoxaparin 40 MG/0.4 ML Syringe SC (07:10)
--- NOTE | 2018-05-17 07:12 | NURSING ---
No BM x5days. Refuses suppository. Requesting apple juice. Apple juice given at hs per request. States duran also makes me go so if the apple juice does not work he'll go on to duran
[2018-05-17] MEDS: Aspirin E.C. 81 MG Tablet PO (07:49)
[2018-05-17] MEDS: Pantoprazole Sodium 20 MG Tablet PO (07:49)
[2018-05-17] MEDS: Chlorthalidone 50 MG Tablet 25 MG PO (07:49)
[2018-05-17] MEDS: Carvedilol 3.125 MG TABLET PO ×2 (07:49→17:39)
[2018-05-17 07:50] VITALS: BP 98/60; PULSE 60; RESP 18; TEMP 36.7; O2SAT 95
[2018-05-17] MEDS: Senna/Docusate Sodium 1 Tablet 2 TABLET PO ×2 (07:50→21:53)
[2018-05-17 11:28] VITALS: BMI 29.5
[2018-05-17 12:11] LABS: Bedside Glucose 201 mg/dL (70-110)
[2018-05-17] MEDS: Insulin Lispro 100 UNIT/ML INSULN.PEN SC ×3 (12:41→21:53)
[2018-05-17 17:15] LABS: Bedside Glucose 184 mg/dL (70-110)
[2018-05-17 20:18] VITALS: BP 107/69; PULSE 70; RESP 18; TEMP 36.9; O2SAT 92
[2018-05-17 21:05] LABS: Bedside Glucose 207 mg/dL (70-110)
[2018-05-17] MEDS: MELATONIN 3 MG TABLET PO (21:53)
[2018-05-17] MEDS: Atorvastatin Calcium 80 MG Tablet PO (21:53)
[2018-05-17 23:33] VITALS: BP 105/52; PULSE 63
--- NOTE | 2018-05-17 23:35 | NURSING ---
PT WAKES FROM SLEEP WITH L SIDED NOSEBLEED WHICH STOPS SPONTANEOUSLY UPON AWAKING. APPROX 10 ML OF BLOOD NOTED ON BEDSHEETS. NO ACTIVE BLEEDING NOTED AND PT STATES HE IS NOT SWALLOWING ANY BLOOD. PT STATES HE DEVELOPED A MILD FRONTAL FULTON RATED #3-4 AFTER THE NOSEBLEED AND THAT FULTON IS ALREADY SUBSIDING. PT STATES HE GETS NOSEBLEEDS AT HOME WHICH VARY FROM A FEW TIMES A WEEK TO ONE TIME A MONTH WHICH ARE ASSOCIATED WITH SIMILAR TYPE FULTON. SPEECH IS CLEAR AND APPROPRIATE AND PT DENIES ANY OTHER NEW SYMPTOMS.
--- NOTE | 2018-05-17 23:50 | NURSING ---
DR SALDANA PHONES INTO UNIT. INFORMED OF PT'S NOSEBLEED, MILD FULTON WHICH IS IMPROVING, LOVENOX ON APR AND HX OF NOSEBLEEDS AT HOME. NO ORDERS GIVEN. PT HAS BEEN ADVISED TO NOTIFY STAFF OF ANOTHER NOSEBLEED OR CHANGE IN FULTON PAIN ETC.
--- NOTE | 2018-05-18 00:05 | NURSING ---
PT STATES FULTON IS ALMOST COMPLETELY RESOLVED. TEXTING ON PHONE.
[2018-05-18 06:35] LABS: Bedside Glucose 186 mg/dL (70-110)
[2018-05-18] MEDS: Enoxaparin 40 MG/0.4 ML Syringe SC (07:05)
[2018-05-18 07:46] VITALS: BP 100/73; PULSE 62; RESP 18; TEMP 37.1; O2SAT 95
[2018-05-18] MEDS: Pantoprazole Sodium 20 MG Tablet PO (07:49)
[2018-05-18] MEDS: Senna/Docusate Sodium 1 Tablet 2 TABLET PO ×2 (07:49→20:56)
[2018-05-18] MEDS: Carvedilol 3.125 MG TABLET PO ×2 (07:49→17:42)
[2018-05-18] MEDS: Aspirin E.C. 81 MG Tablet PO (07:49)
[2018-05-18] MEDS: Chlorthalidone 50 MG Tablet 25 MG PO (07:49)
[2018-05-18] MEDS: Insulin Lispro 100 UNIT/ML INSULN.PEN SC ×4 (07:49→20:56)
--- NOTE | 2018-05-18 10:30 | NURSING ---
OFFERED TO AMBULTAE IN HALLS, PT REFUSED AT THIS TIME, STATES I WANT TO LAY DOWN BEFORE MY GIRLFRIEND COMES TO VISIT.
[2018-05-18 11:55] LABS: Bedside Glucose 194 mg/dL (70-110)
[2018-05-18 16:16] VITALS: BMI 29.5
[2018-05-18 16:41] LABS: Bedside Glucose 212 mg/dL (70-110)
[2018-05-18 20:30] VITALS: BP 103/65; PULSE 70; RESP 18; TEMP 37.1; O2SAT 97; BMI 29.5
[2018-05-18] MEDS: MELATONIN 3 MG TABLET PO (20:56)
[2018-05-18] MEDS: Atorvastatin Calcium 80 MG Tablet PO (20:56)
[2018-05-18 21:56] LABS: Bedside Glucose 199 mg/dL (70-110)
[2018-05-19] MEDS: Enoxaparin 40 MG/0.4 ML Syringe SC (06:24)
[2018-05-19 07:30] LABS: Bedside Glucose 180 mg/dL (70-110)
[2018-05-19] MEDS: Insulin Lispro 100 UNIT/ML INSULN.PEN SC ×4 (07:41→21:14)
[2018-05-19] MEDS: Pantoprazole Sodium 20 MG Tablet PO (07:42)
[2018-05-19] MEDS: Aspirin E.C. 81 MG Tablet PO (07:42)
[2018-05-19] MEDS: Carvedilol 3.125 MG TABLET PO ×2 (07:43→17:03)
[2018-05-19] MEDS: Senna/Docusate Sodium 1 Tablet 2 TABLET PO (07:43)
[2018-05-19] MEDS: Chlorthalidone 50 MG Tablet 25 MG PO (07:43)
--- NOTE | 2018-05-19 08:15 | PCM.PN.HOSP ---
Subjective: Patient with no acute events per self and per nursing report. Up and working with therapies. Very easily distracted and stops therapies intermittently. Unable to follow some commands. Discussed current status with patient and he again denies any prior trauma history but had been prior on aspirin and Plavix, status post craniotomy. He states that he had not been receiving therapies at outside facility prior to transition to acute rehab for ongoing therapies currently. No current complaint of dizziness or lightheadedness as there is been concern for bradycardia with Coreg. Patient denies fevers, chills, nausea, emesis, abdominal pain, chest pain or dyspnea. Objective: Physical Examination: General: awake, alert, oriented to self, place, recent events however some answers seem inappropriate, remains cooperative, seated upright on a rehab bed area forming therapies. Skin: normal color, turgor, no icterus, cyanosis except noted shaved right head with incisions intact, no bleeding. HEENT: AT/NC, EOMI, PERRLA, MMM. Lungs: CTA bilaterally, moderate effort, mild decrease BL bases, no rales, ronchi or wheezing. Heart: Bradycardic with regular rhythm; no gallop, rub audible. Abdomen: soft, overweight, NTTP, ND, normal BS. Extremities: no cyanosis, clubbing, or edema. Neurological: patient awake, alert, oriented noted; cognitive function intact; pupils equally reactive to light and accomodation; cranial nerves II-XII grossly normal, moving all 4 extremities, no focal deficits, strength mildly to moderately globally decreased, status post craniotomy, incisions well appearing right cranium. Psychiatric: affect appears excitable, very talkative, some comments mildly abnormal, no acute evidence of depressive or anxiety feelings. Vitals/I&O's: Vital Signs Temp Pulse Resp BP Pulse Ox 98.7 F 70 18 103/65 97 05/18/18 20:30 05/18/18 20:30 05/18/18 20:30 05/18/18 20:30 05/18/18 20:30 Oxygen Delivery Method Room Air Weight: 194 lb 7.163 oz Body Mass Index (BMI) 29.5 Intake and Output for Last 24 Hours 05/17/18 05/18/18 05/19/18 23:59 23:59 23:59 Intake Total 840 / 840 480 / 480 Output Total 200 / 200 Balance 840 / 840 480 / 480 -200 / -200 Laboratory Results 05/18/18 11:42: POC Glucose 194 H 05/18/18 16:30: POC Glucose 212 H 05/18/18 20:55: POC Glucose 199 H 05/19/18 06:28: POC Glucose 180 H Current Medications [facility] Last Admin: 05/19/18 07:42 Dose: 81 mg Atorvastatin Calcium (Lipitor) 80 mg PO QHS [facility] Last Admin: 05/18/18 20:56 Dose: 80 mg Bisacodyl (Dulcolax) 10 mg RECTAL .PRN X 1 PRN PRN Reason: Constipation Carvedilol ([facility]g) [facility] Last Admin: 05/19/18 07:43 Dose: 3.125 mg Chlorthalidone (Hygroton) 25 mg PO DAILY [facility] Last Admin: 05/19/18 07:43 Dose: 25 mg Enoxaparin Sodium (Lovenox) 40 mg SC DAILY@0600 [facility] Last Admin: 05/19/18 06:24 Dose: 40 mg Insulin Human Lispro (Humalog Kwikpen (Bkc)) 0 unit SC [facility]; Protocol Last Admin: 05/19/18 07:41 Dose: 1 units Lactobacillus Acidophilus (Acidophilus) 1 tablet PO DAILY [facility] Last Admin: 05/19/18 07:42 Dose: 1 tablet Magnesium Hydroxide (Milk Of Magnesia) 30 ml PO .PRN X 1 PRN PRN Reason: Constipation Last Admin: 05/16/18 06:19 Dose: 30 ml Melatonin (Melatonin) 3 mg PO QHS [facility] Last Admin: 05/18/18 20:56 Dose: 3 mg Nitroglycerin (Nitrostat) 0.4 mg SUBLINGUAL Q5M PRN PRN Reason: Angina pain Pantoprazole Sodium (Protonix) 20 mg PO DAILY [facility] Last Admin: 05/19/18 07:42 Dose: 20 mg Polyethylene Glycol (Miralax) 17 gm PO DAILY PRN PRN PRN Reason: CONSTIPATION Psyllium Hydrophilic Mucilloid (Metamucil) 1 packet PO DAILY [facility] Last Admin: 05/19/18 07:43 Dose: Not Given Senna/Docusate Sodium (Senokot-S, Elizabeth-Colace) 2 tablet PO BID [facility] Last Admin: 05/19/18 07:43 Dose: 2 tablet Medical Necessity - Tobacco Use Smoking Status: Former smoker Tobacco Use: Non-smoker Assessment/Plan All Active Problems (Last Reviewed 05/16/18 @ 12:01 by Drake Man MD) STEMI (ST elevation myocardial infarction) (Resolved) The patient is a 67 y/o M w/ PMHx: HTN, HLD, CAD s/p PCI, Diabetes mellitus type II, GERD who presents to the [facility] on 05/16/18 for ongoing therapy s/p spontaneous right-sided subdural hematoma with no trauma history status post craniotomy. (1) Spontaneous R Sided SDH: Status post hospitalization in [facility] following noted subdural right-sided hematoma, no history of trauma, had been on aspirin and Plavix concurrently for prior history of coronary disease status post PCI, 05/11/18 amniotomy performed, allowed to transition to baby aspirin as well as chemoprophylaxis per neurosurgery, continue PT, OT, Speech following, noted chemoprophylaxis allowed as noted per neurosurgery and had been on heparin at OSH, plan transition to home once appropriate. Repeat CT head planned 05/22/18. (2) CAD, Hx NE: s/p NE inferior wall, PCI LAURA (2.5X20 Prom[employer] Synergy) to mid RCA 12/23/17; LAURA (2.25 X 12 Promus Synergy) to distal RCA/proximal PDA, as well as POBA to ostial PL Branch with 2.0 X12 balloon 01/22/18, allowed to continue on baby aspirin only, plavix discontinued with recent SDH, statin, Coreg regimen. From OSH notes Cardiology had been amenable to transition to ASA. (3) Diabetes mellitus type II: Not on regimen, recommend upon discharge initiation metformin, hemoglobin A1c requested, ADA diet, accu checks w/ ISS. (4) Hypertension: Continue home regimen including Coreg, chlorthalidone, PRN hydralazine. (5) Hyperlipidemia: Continue home statin regimen. (6) GERD: PPI. (7) DVT prophylaxis: SCD, Lovenox cleared per neurosurgery. Code Visit Inpatient E&M: 36095 Subs Hosp L2
[2018-05-19 08:33] VITALS: O2SAT 97
[2018-05-19 08:39] VITALS: BP 110/68; PULSE 60; RESP 18; TEMP 36.6; O2SAT 97
--- NOTE | 2018-05-19 10:27 | PN.NEURO_ITS ---
Subjective: No issues overnight. Care discussed with the nursing staff. 67-year-old male with PMH HTN, HLD, DM, CAD status post stent (12/23/2017), found to have right SDH status post craniotomy 05/11/2018 at [facility], admitted to [facility] inpatient rehab unit on 05/15/2018 with debility status post SDH and craniotomy, with a goal of returning home at or near his prior level of functional independence. At present patient denies any headache, focal motor weakness, sensory loss, dizziness. Patient was on aspirin and Plavix for his coronary stents prior to the SDH. Per documentation following the SDH patient has been restarted on aspirin and DVT prophylaxis. Per documentation cardiology is okay with continuing only aspirin at this point given SDH. - Physical Exam General: Alert HEENT: Normocephalic Neck: Supple Lungs: Normal air movement Cardiovascular: Normal S1, Normal S2 Abdomen: Bowel Sounds Present Extremities: No cyanosis Neurological: Cranial nerves II-XII grossly intact, Deep Tendon Reflexes 2+/4 and Symmetrical, Neuro grossly intact, Motor Exam 5/5 strength throughout, Muscle tone normal, Sensory exam intact to light touch and pain, Coordination normal Psych/Mental Status: Normal Affect Vital Signs Temp Pulse Resp BP Pulse Ox 98 F 60 18 110/68 97 05/19/18 08:39 05/19/18 08:39 05/19/18 08:39 05/19/18 08:39 05/19/18 08:39 Oxygen Delivery Method Room Air Weight: 88.2 kg Body Mass Index (BMI) 29.5 Intake and Output for Last 24 Hours 05/17/18 05/18/18 05/19/18 23:59 23:59 23:59 Intake Total 840 / 840 480 / 480 260 / 260 Output Total 200 / 200 Balance 840 / 840 480 / 480 60 / 60 POC Glucose 05/19/18 05/18/18 05/18/18 06:28 20:55 16:30 POC Glucose 180 H 199 H 212 H 05/18/18 11:42 POC Glucose 194 H Medical Necessity - Tobacco Use Smoking Status: Former smoker Tobacco Use: Non-smoker Assessment/Plan All Active Problems (Last Reviewed 05/16/18 @ 12:01 by Drake Man MD) STEMI (ST elevation myocardial infarction) (Resolved) 67-year-old male with PMH HTN, HLD, DM, CAD status post stent (12/23/2017), found to have right SDH status post craniotomy 05/11/2018 at [facility], admitted to [facility] inpatient rehab unit on 05/15/2018 with debility status post SDH and craniotomy, with a goal of returning home at or near his prior level of functional independence. At present patient denies any headache, focal motor weakness, sensory loss, dizziness. Patient was on aspirin and Plavix for his coronary stents prior to the SDH. Per documentation following the SDH patient has been restarted on aspirin and DVT prophylaxis. Per documentation cardiology is okay with continuing only aspirin at this point given SDH. Plan ?PT for gait stability ?OT for ADLs ?Speech therapy ?Analgesics as needed ?Bowel protocol ?SDH?status post craniotomy on the right side. Denies any new neurological symptoms at present. ?HTN?on Coreg and chlorthalidone ?HLD?on Lipitor ?DM?on insulin ?CAD?on aspirin and Lipitor. ?GI/DVT prophylaxis?on pantoprazole/Lovenox, SCDs ?Further medical management per hospitalist recommendation. ?Follow-up with PCP and neurosurgery post discharge.
[2018-05-19 10:48] VITALS: BMI 29.5
[2018-05-19 11:15] LABS: Potassium 4.1 mmol/L (3.5-5.1)
[2018-05-19 11:31] LABS: Bedside Glucose 196 mg/dL (70-110)
[2018-05-19 16:55] LABS: Bedside Glucose 199 mg/dL (70-110)
[2018-05-19 20:30] VITALS: BP 113/71; PULSE 60; RESP 16; TEMP 37.1; O2SAT 97; BMI 29.5
[2018-05-19 20:55] LABS: Bedside Glucose 188 mg/dL (70-110)
[2018-05-19] MEDS: Atorvastatin Calcium 80 MG Tablet PO (21:15)
[2018-05-19] MEDS: MELATONIN 3 MG TABLET PO (21:15)
--- NOTE | 2018-05-20 03:19 | NURSING ---
Reviewed and agree with COMM[employer]ICATION[employer] documentation and FIMs charting
[2018-05-20] MEDS: Enoxaparin 40 MG/0.4 ML Syringe SC (05:37)
[2018-05-20 07:00] VITALS: BP 110/72; PULSE 56; RESP 16; TEMP 36.8; O2SAT 95
[2018-05-20 07:01] LABS: Bedside Glucose 153 mg/dL (70-110)
[2018-05-20] MEDS: Pantoprazole Sodium 20 MG Tablet PO (08:07)
[2018-05-20] MEDS: Carvedilol 3.125 MG TABLET PO ×2 (08:07→17:31)
[2018-05-20] MEDS: Chlorthalidone 50 MG Tablet 25 MG PO (08:07)
[2018-05-20] MEDS: Aspirin E.C. 81 MG Tablet PO (08:07)
[2018-05-20] MEDS: Insulin Lispro 100 UNIT/ML INSULN.PEN SC ×4 (08:07→21:54)
[2018-05-20 08:10] VITALS: BP 110/76; PULSE 70; RESP 18; O2SAT 99
[2018-05-20] MEDS: Psyllium 1 PACKET PO (10:07)
--- NOTE | 2018-05-20 10:45 | PN.NEURO_ITS ---
Subjective: No issues overnight. Care discussed with nursing staff. - Physical Exam General: Alert HEENT: Normocephalic Neck: Supple Lungs: Normal air movement Cardiovascular: Normal S1, Normal S2 Abdomen: Bowel Sounds Present Extremities: No cyanosis Neurological: Cranial nerves II-XII grossly intact, Deep Tendon Reflexes 2+/4 and Symmetrical, Neuro grossly intact, Motor Exam 5/5 strength throughout, Muscle tone normal, Sensory exam intact to light touch and pain, Coordination normal Psych/Mental Status: Normal Affect Vital Signs Temp Pulse Resp BP Pulse Ox 98.2 F 70 18 110/76 99 05/20/18 07:00 05/20/18 08:10 05/20/18 08:10 05/20/18 08:10 05/20/18 08:10 Oxygen Delivery Method Room Air Weight: 88.2 kg Body Mass Index (BMI) 29.5 Intake and Output for Last 24 Hours 05/18/18 05/19/18 05/20/18 23:59 23:59 23:59 Intake Total 480 / 480 260 / 260 240 / 240 Output Total 200 / 200 Balance 480 / 480 60 / 60 240 / 240 Laboratory Tests Past 24 Hrs 05/19/18 05/20/18 10:45 05:20 Potassium 4.1 Hemoglobin A1c 7.0 H POC Glucose 05/20/18 05/19/18 05/19/18 06:52 20:49 16:37 POC Glucose 153 H 188 H 199 H 05/19/18 11:20 POC Glucose 196 H Medical Necessity - Tobacco Use Smoking Status: Former smoker Tobacco Use: Non-smoker Assessment/Plan All Active Problems (Last Reviewed 05/16/18 @ 12:01 by Drake Man MD) STEMI (ST elevation myocardial infarction) (Resolved) 67-year-old male with PMH HTN, HLD, DM, CAD status post stent (12/23/2017), found to have right SDH status post craniotomy 05/11/[address] [facility], admitted to [facility] inpatient rehab unit on 05/15/2018 with debility status post SDH and craniotomy, with a goal of returning home at or near his prior level of functional independence. At present patient denies any headache, focal motor weakness, sensory loss, dizziness. Patient was on aspirin and Plavix for his coronary stents prior to the SDH. Per documentation following the SDH patient has been restarted on aspirin and DVT prophylaxis. Per documentation cardiology is okay with continuing only aspirin at this point given SDH. Plan ?PT for gait stability ?OT for ADLs ?Speech therapy ?Analgesics as needed ?Bowel protocol ?SDH?status post craniotomy on the right side. Denies any new neurological symptoms at present. ?HTN?on Coreg and chlorthalidone ?HLD?on Lipitor ?DM?on insulin ?CAD?on aspirin and Lipitor. ?GI/DVT prophylaxis?on pantoprazole/Lovenox, SCDs ?Further medical management per hospitalist recommendation. ?Follow-up with PCP and neurosurgery post discharge.
[2018-05-20 11:05] LABS: Bedside Glucose 157 mg/dL (70-110)
[2018-05-20 14:10] VITALS: BMI 29.5
[2018-05-20 17:45] LABS: Bedside Glucose 165 mg/dL (70-110)
[2018-05-20 21:23] VITALS: BP 104/69; PULSE 75; RESP 16; TEMP 37; O2SAT 98
[2018-05-20] MEDS: MELATONIN 3 MG TABLET PO (21:44)
[2018-05-20] MEDS: Atorvastatin Calcium 80 MG Tablet PO (21:44)
[2018-05-20 22:06] LABS: Bedside Glucose 186 mg/dL (70-110)
[2018-05-21 01:25] VITALS: BMI 29.5
--- NOTE | 2018-05-21 06:16 | NURSING ---
Pt found up in room walking around. Pt reminded of safety concerns of removing PA on own. Pt reoriented to call light and repositioned in bed.
[2018-05-21] MEDS: Enoxaparin 40 MG/0.4 ML Syringe SC (06:22)
[2018-05-21] MEDS: Insulin Lispro 100 UNIT/ML INSULN.PEN SC ×4 (06:25→21:33)
[2018-05-21 07:00] LABS: Bedside Glucose 177 mg/dL (70-110)
[2018-05-21 08:27] VITALS: BP 96/61; PULSE 60; RESP 16; TEMP 36.8; O2SAT 96
[2018-05-21] MEDS: Chlorthalidone 50 MG Tablet 25 MG PO (08:29)
[2018-05-21] MEDS: Carvedilol 3.125 MG TABLET PO ×2 (08:29→17:11)
[2018-05-21] MEDS: Aspirin E.C. 81 MG Tablet PO (08:29)
[2018-05-21] MEDS: Pantoprazole Sodium 20 MG Tablet PO (08:30)
[2018-05-21] MEDS: Psyllium 1 PACKET PO (08:30)
[2018-05-21 11:31] LABS: Bedside Glucose 195 mg/dL (70-110)
[2018-05-21 15:32] VITALS: BMI 29.5
[2018-05-21 16:51] LABS: Bedside Glucose 221 mg/dL (70-110)
[2018-05-21 21:10] LABS: Bedside Glucose 196 mg/dL (70-110)
[2018-05-21] MEDS: MELATONIN 3 MG TABLET PO (21:31)
[2018-05-21] MEDS: Atorvastatin Calcium 80 MG Tablet PO (21:31)
[2018-05-21] MEDS: Senna/Docusate Sodium 1 Tablet 2 TABLET PO (21:32)
[2018-05-21 22:00] VITALS: BP 127/78; PULSE 76; RESP 16; TEMP 36.7; O2SAT 94
[2018-05-22 05:00] VITALS: BMI 29.5
--- NOTE | 2018-05-22 05:16 | NURSING ---
BRADYCARDIA PER MONITOR. BRACHIAL PULSE MATCHES MONITOR. PT REPORTS TO FEEL FINE. SKIN IS WARM AND DRY.
[2018-05-22] MEDS: Enoxaparin 40 MG/0.4 ML Syringe SC (05:19)
[2018-05-22 05:26] VITALS: BP 111/44; PULSE 38
--- NOTE | 2018-05-22 05:32 | EKG12_ITS ---
Test Reason : BRADYCARDIA Blood Pressure : / mmHG Vent. Rate : 062 BPM Atrial Rate : 041 BPM P-R Int : 170 ms QRS Dur : 096 ms QT Int : 440 ms P-R-T Axes : 060 -19 -40 degrees QTc Int : 446 ms Marked sinus bradycardia with frequent Premature ventricular complexes Inferior infarct , age undetermined Abnormal ECG Confirmed by MORE BOLIVAR, CHARLIE ([id number]), order editor LEXI RAMIREZ ([id number]) on 05/23/2018 1:59:22 PM Referred By: Drake Man Confirmed By:CHARLIE AGUERO MD
--- NOTE | 2018-05-22 05:33 | NURSING ---
TIMOTEO HERNANDEZ NOTIFIED OF PT'S HEART RATE. EKG ORDERED.
[2018-05-22 06:28] VITALS: BP 129/67; PULSE 43
[2018-05-22 06:55] LABS: Bedside Glucose 159 mg/dL (70-110)
[2018-05-22] MEDS: Insulin Lispro 100 UNIT/ML INSULN.PEN SC ×4 (08:47→21:24)
[2018-05-22] MEDS: Carvedilol 3.125 MG TABLET PO ×2 (09:02→16:44)
[2018-05-22] MEDS: Chlorthalidone 50 MG Tablet 25 MG PO (09:02)
[2018-05-22] MEDS: Pantoprazole Sodium 20 MG Tablet PO (09:02)
[2018-05-22] MEDS: Aspirin E.C. 81 MG Tablet PO (09:02)
[2018-05-22] MEDS: Psyllium 1 PACKET PO (09:03)
[2018-05-22 09:06] VITALS: BP 133/75; PULSE 74; RESP 16; TEMP 36.8; O2SAT 95
--- NOTE | 2018-05-22 11:00 | CT_ITS ---
STUDY: CT BRAIN WITHOUT CONTRAST REASON FOR EXAM: Male, 67 years old. CVA, CRANIOTOMY 05/11/18, recent subdural hematoma. CURRENTLY ON ASPIRIN RADIATION DOSAGE (If Supplied By Facility): CTDIvol = ( 44.99 ) mGy, DLP = ( 796.11 ) mGycm TECHNIQUE: Transaxial CT imaging of the brain was performed without administration of intravenous contrast material. Individualized dose optimization techniques were used for this CT. COMPARISON: 05/05/2018 FINDINGS: Since prior exam, patient has had 2 separate right-sided louann holes, and there has been essentially complete evacuation of previous subdural hematoma. Only trace blood remains, especially seen in the right anterior cranial fossa, axial images 13-16. There is no longer any evidence for mass effect or midline shift. No other acute abnormalities. Normal size ventricles and extra-axial spaces for the patient's age. Normal white matter tracts of the cerebral hemispheres. Normal basal ganglia and thalami. Normal brainstem. Normal cerebellum. There are no findings of an acute ischemic infarction. Normal visualized paranasal sinuses. CT/Brain/Head without Contrast IMPRESSION: Previous exam, nearly complete evacuation of previous right-sided subdural hemorrhage. No residual mass effect or acute abnormality. Electronically Signed: Alfredo Ham MD at 22:05 EDT , Service support ,
[2018-05-22 12:11] LABS: Bedside Glucose 153 mg/dL (70-110)
--- NOTE | 2018-05-22 12:17 | CASEMGMT ---
Team meeting held today with pt present. PT is receiving PT/OT/ST and progressing well. Pt requesting to return home at this time and d/c date set for 05/23/18. Pt will be going to his friends apartment. Pt states his friend is aware that he is coming to her house and she will be in later today and he will confirm this with her. Pt states friends phone is not working so SW cannot call her but friend will be agreeable and does not work and will be able to assist pt as needed. All needed DME in the home. Therapy is recommending outpt ST. SW spoke with pt about this and he is agreeable and would like to use [facility] and states friend can provide transportation. Referral made to Lexie at [employer] and order faxed. Plan: Home with friend on 05/23/18. Outpt Speech Therapy at [facility]. VANNESSA Holland
--- NOTE | 2018-05-22 16:05 | PN.NEURO_ITS ---
Subjective: No issues overnight. Care discussed with the nursing staff. Staffed in the team meeting today. All questions were answered. Further therapy details per PT/OT/ST note documentation. likely discharge tomorrow 05/23/2018. - Physical Exam General: Alert HEENT: Normocephalic Neck: Supple Lungs: Normal air movement Cardiovascular: Normal S1, Normal S2 Abdomen: Bowel Sounds Present Extremities: No cyanosis Neurological: Cranial nerves II-XII grossly intact, Deep Tendon Reflexes 2+/4 and Symmetrical, Neuro grossly intact, Motor Exam 5/5 strength throughout, Muscle tone normal, Sensory exam intact to light touch and pain, Coordination normal Psych/Mental Status: Normal Affect Vital Signs Temp Pulse Resp BP Pulse Ox 98.2 F 74 16 133/75 H 95 05/22/18 09:06 05/22/18 09:06 05/22/18 09:06 05/22/18 09:06 05/22/18 09:06 Oxygen Delivery Method Room Air Weight: 79.8 kg Body Mass Index (BMI) 29.5 Intake and Output for Last 24 Hours 05/20/18 05/21/18 05/22/18 23:59 23:59 23:59 Intake Total 840 / 840 780 / 780 240 / 240 Balance 840 / 840 780 / 780 240 / 240 POC Glucose 05/22/18 05/22/18 05/21/18 12:07 06:49 21:06 POC Glucose 153 H 159 H 196 H 05/21/18 16:47 POC Glucose 221 H Medical Necessity - Tobacco Use Smoking Status: Former smoker Tobacco Use: Non-smoker Assessment/Plan All Active Problems (Last Reviewed 05/16/18 @ 12:01 by Drake Man MD) STEMI (ST elevation myocardial infarction) (Resolved) 67-year-old male with PMH HTN, HLD, DM, CAD status post stent (12/23/2017), found to have right SDH status post craniotomy 05/11/2018 at [facility], admitted to [facility] inpatient rehab unit on 05/15/2018 with debility status post SDH and craniotomy, with a goal of returning home at or near his prior level of functional independence. At present patient denies any headache, focal motor weakness, sensory loss, dizziness. Patient was on aspirin and Plavix for his coronary stents prior to the SDH. Per documentation following the SDH patient has been restarted on aspirin and DVT prophylaxis. Per documentation cardiology is okay with continuing only aspirin at this point given SDH. Plan ?PT for gait stability ?OT for ADLs ?Speech therapy ?Analgesics as needed ?Bowel protocol ?SDH?status post craniotomy on the right side. Denies any new neurological symptoms at present. Plavix on hold following SDH. Cardiology okay with the same ?HTN?on Coreg and chlorthalidone ?HLD?on Lipitor ?DM?on insulin ?CAD?on aspirin and Lipitor. ?GI/DVT prophylaxis?on pantoprazole/Lovenox, SCDs ?Further medical management per hospitalist recommendation. ?Follow-up with PCP, cardiology and neurosurgery post discharge.
[2018-05-22 16:56] LABS: Bedside Glucose 195 mg/dL (70-110)
[2018-05-22 17:00] VITALS: BMI 29.5
[2018-05-22 20:30] VITALS: BP 111/85; PULSE 69; RESP 18; TEMP 36.8; O2SAT 97
[2018-05-22] MEDS: MELATONIN 3 MG TABLET PO (21:30)
[2018-05-22] MEDS: Senna/Docusate Sodium 1 Tablet 2 TABLET PO (21:30)
[2018-05-22] MEDS: Atorvastatin Calcium 80 MG Tablet PO (21:31)
[2018-05-22 21:41] LABS: Bedside Glucose 229 mg/dL (70-110)
[2018-05-22 23:22] VITALS: BMI 29.5
[2018-05-23] MEDS: Enoxaparin 40 MG/0.4 ML Syringe SC (05:58)
[2018-05-23 06:40] LABS: Bedside Glucose 205 mg/dL (70-110)
[2018-05-23 07:00] VITALS: BP 112/53; PULSE 60; RESP 16; TEMP 36.6; O2SAT 94
--- NOTE | 2018-05-23 08:16 | PCM.DC ---
- Discharge Diagnoses Current Active Problems: Debility post SDH s/p craniotomy Reason(s) for Visit for Discharge Instructions: Debility post SDH s/p craniotomy You will use the following diet at home:: Cardiac, Other - Low cholesterol Your food should be the consistency of: Regular Discharge Activity: May Not Drive Call your doctor if your incision/area has: Continuous Slow Oozing, Sudden Increased Bleeding, Increased Pain/ Swelling, Increased Redness, Foul Smelling Discharge, Swelling at the incision site Call your doctor if you observe: Fever of 101 or Higher, Coldness, Increased Pain, Numbness or Tingling, Change in Color, Inability to urinate, Inability to have a bowel movement, Using more than one pad per hour, Shortness of breath, Dizziness, Fainting spells, Swelling in the ankles, Chest pain, Prolonged hiccoughing, Increased palpitations (irregular heartbeat), Calf discomfort, Uncontrolled pain Allergies/Adverse Reactions: Allergies lisinopril Adverse Reaction (Intermediate, Verified 05/05/18 11:41) COUGH Medications to take at Discharge Aspirin E.C. [Ecotrin] 81 mg PO DAILY 12/23/17 Atorvastatin Calcium [Lipitor] 80 mg PO QHS 12/23/17 Lansoprazole 15 mg PO DAILY 12/23/17 Nitroglycerin [Nitrostat] 0.4 mg SUBLINGUAL Q5M PRN #10 tab 12/25/17 Carvedilol [Coreg (Beta Kaz)] 3.125 mg PO BID 05/15/18 Chlorthalidone [Hygroton] 25 mg PO DAILY 05/15/18 Docusate Sodium [Colace] 100 mg PO DAILY 05/15/18 Insulin Lispro [Humalog KwikPen] See Protocol SC ACHS insuln.pen 05/23/18 Metformin HCl 500 mg PO BID #60 tablet 05/23/18 The following prescriptions were given: Metformin HCl 500 mg PO BID #60 tablet Primary Care Physician: Miguel Love MD [Primary Care Provider] - Test Results: Test results from this visit will be discussed in further detail at your follow-up appointment, if applicable. Please Follow Up With: [facility] Therapy When: They will call you to schedule an appointment Please Follow Up With: [facility] ([facility]) When: Pt. needs to set up appt. When: F/U with Neurosurgery in 1-2 weeks When: F/U Cardiology in 1-2 weeks
--- NOTE | 2018-05-23 08:21 | DCINST_ITS ---
- Discharge Diagnoses Current Active Problems: Debility post SDH s/p craniotomy Reason(s) for Visit for Discharge Instructions: Debility post SDH s/p craniotomy You will use the following diet at home:: Cardiac, Other - Low cholesterol Your food should be the consistency of: Regular Discharge Activity: May Not Drive Call your doctor if your incision/area has: Continuous Slow Oozing, Sudden Increased Bleeding, Increased Pain/ Swelling, Increased Redness, Foul Smelling Discharge, Swelling at the incision site Call your doctor if you observe: Fever of 101 or Higher, Coldness, Increased Pain, Numbness or Tingling, Change in Color, Inability to urinate, Inability to have a bowel movement, Using more than one pad per hour, Shortness of breath, Dizziness, Fainting spells, Swelling in the ankles, Chest pain, Prolonged hiccoughing, Increased palpitations (irregular heartbeat), Calf discomfort, Uncontrolled pain Allergies/Adverse Reactions: Allergies lisinopril Adverse Reaction (Intermediate, Verified 05/05/18 11:41) COUGH Medications to take at Discharge Aspirin E.C. [Ecotrin] 81 mg PO DAILY 12/23/17 Atorvastatin Calcium [Lipitor] 80 mg PO QHS 12/23/17 Lansoprazole 15 mg PO DAILY 12/23/17 Nitroglycerin [Nitrostat] 0.4 mg SUBLINGUAL Q5M PRN #10 tab 12/25/17 Carvedilol [Coreg (Beta Kaz)] 3.125 mg PO BID 05/15/18 Chlorthalidone [Hygroton] 25 mg PO DAILY 05/15/18 Docusate Sodium [Colace] 100 mg PO DAILY 05/15/18 Insulin Lispro [Humalog KwikPen] See Protocol SC ACHS insuln.pen 05/23/18 Metformin HCl 500 mg PO BID #60 tablet 05/23/18 The following prescriptions were given: Metformin HCl 500 mg PO BID #60 tablet Primary Care Physician: Miguel Love MD [Primary Care Provider] - Test Results: Test results from this visit will be discussed in further detail at your follow- up appointment, if applicable. Please Follow Up With: [facility] Therapy When: They will call you to schedule an appointment Please Follow Up With: [facility] ([facility]) When: Pt. needs to set up appt. When: F/U with Neurosurgery in 1-2 weeks When: F/U Cardiology in 1-2 weeks
--- NOTE | 2018-05-23 08:24 | PCM.RU.DC ---
Rehab Discharge Summary DATE OF ADMISSION: 05/15/18 DATE OF DISCHARGE: 05/23/2018 - Rehab Diagnosis Debility s/p SDH and craniotomy Subjective: No issues overnight. Care discussed with nursing staff. - Physical Exam General: Alert HEENT: Normocephalic Neck: Supple Lungs: Normal air movement Cardiovascular: Normal S1, Normal S2 Abdomen: Bowel Sounds Present Extremities: No cyanosis Neurological: Cranial nerves II-XII grossly intact, Deep Tendon Reflexes 2+/4 and Symmetrical, Neuro grossly intact, Motor Exam 5/5 strength throughout, Muscle tone normal, Sensory exam intact to light touch and pain, Coordination normal Psych/Mental Status: Normal Affect Vital Signs Temp Pulse Resp BP Pulse Ox 97.9 F 60 16 112/53 L 94 05/23/18 07:00 05/23/18 07:00 05/23/18 07:00 05/23/18 07:00 05/23/18 07:00 Oxygen Delivery Method Room Air Weight: 79.8 kg Body Mass Index (BMI) 29.5 Intake and Output for Last 24 Hours 05/21/18 05/22/18 05/23/18 23:59 23:59 23:59 Intake Total 780 / 780 240 / 240 Balance 780 / 780 240 / 240 POC Glucose 05/23/18 05/22/18 05/22/18 06:37 21:29 16:43 POC Glucose 205 H 229 H 195 H 05/22/18 12:07 POC Glucose 153 H Discharge Diet: Low fat/ Low Cholesterol, - - Cardiac diet Discharge Activity: May Not Drive Call your doctor if your incision/area has: Continuous Slow Oozing, Sudden Increased Bleeding, Increased Pain/ Swelling, Increased Redness, Foul Smelling Discharge, Swelling at the incision site Call your doctor if you observe: Fever of 101 or Higher, Coldness, Increased Pain, Numbness or Tingling, Change in Color, Inability to urinate, Inability to have a bowel movement, Using more than one pad per hour, Shortness of breath, Dizziness, Fainting spells, Swelling in the ankles, Chest pain, Prolonged hiccoughing, Increased palpitations (irregular heartbeat), Calf discomfort, Uncontrolled pain Home Medications: Medications to take at Discharge Aspirin E.C. [Ecotrin] 81 mg PO DAILY 12/23/17 Atorvastatin Calcium [Lipitor] 80 mg PO QHS 12/23/17 Lansoprazole 15 mg PO DAILY 12/23/17 Nitroglycerin [Nitrostat] 0.4 mg SUBLINGUAL Q5M PRN #10 tab 12/25/17 Carvedilol [Coreg (Beta Kaz)] 3.125 mg PO BID 05/15/18 Chlorthalidone [Hygroton] 25 mg PO DAILY 05/15/18 Docusate Sodium [Colace] 100 mg PO DAILY 05/15/18 Insulin Lispro [Humalog KwikPen] See Protocol LA ACHS insuln.pen 05/23/18 Metformin HCl 500 mg PO BID #60 tablet 05/23/18 Following Prescrptions Were Given to Patient: Metformin HCl 500 mg PO BID #60 tablet Primary Care Physician: Miguel Love MD [Primary Care Provider] - Please Follow Up With: [facility] When: They will call you to schedule an appointment Please Follow Up With: [facility] ([facility]) When: Pt. needs to set up appt. When: F/U with Neurosurgery in 1-2 weeks When: F/U Cardiology in 1-2 weeks Disposition: Home Patient Condition:: Stable Rehab Course 67-year-old male with PMH HTN, HLD, DM, CAD status post stent (12/23/2017), found to have right SDH status post craniotomy 05/11/2018 at [facility], admitted to [facility] inpatient rehab unit on 05/15/2018 with debility status post SDH and craniotomy, with a goal of returning home at or near his prior level of functional independence. At present patient denies any headache, focal motor weakness, sensory loss, dizziness. Patient was on aspirin and Plavix for his coronary stents prior to the SDH. Per documentation following the SDH patient has been restarted on aspirin and DVT prophylaxis. Per documentation cardiology is okay with continuing only aspirin at this point given SDH. Patient tolerated therapies well. He had further uncomplicated hospital course. Follow up with PCP, Neurosurgery and Cardiology 1-2 weeks as outpatient. Patient to follow up with Dr. [facility] for decision about when to restart Plavix as well as he needs to follow up with neurosurgery for the same. Patient advised not to drive, needs clearance from Neurosurgery for driving and recommend OT simulation test for driving clearance. Meaningful Use Info Meaningful Use Diagnoses (Choose all that apply): None applicable
--- NOTE | 2018-05-23 08:29 | DS.PCM_ITS ---
Rehab Discharge Summary DATE OF ADMISSION: 05/15/18 DATE OF DISCHARGE: 05/23/2018 - Rehab Diagnosis Debility s/p SDH and craniotomy Subjective: No issues overnight. Care discussed with nursing staff. - Physical Exam General: Alert HEENT: Normocephalic Neck: Supple Lungs: Normal air movement Cardiovascular: Normal S1, Normal S2 Abdomen: Bowel Sounds Present Extremities: No cyanosis Neurological: Cranial nerves II-XII grossly intact, Deep Tendon Reflexes 2+/4 and Symmetrical, Neuro grossly intact, Motor Exam 5/5 strength throughout, Muscle tone normal, Sensory exam intact to light touch and pain, Coordination normal Psych/Mental Status: Normal Affect Vital Signs Temp Pulse Resp BP Pulse Ox 97.9 F 60 16 112/53 L 94 05/23/18 07:00 05/23/18 07:00 05/23/18 07:00 05/23/18 07:00 05/23/18 07:00 Oxygen Delivery Method Room Air Weight: 79.8 kg Body Mass Index (BMI) 29.5 Intake and Output for Last 24 Hours 05/21/18 05/22/18 05/23/18 23:59 23:59 23:59 Intake Total 780 / 780 240 / 240 Balance 780 / 780 240 / 240 POC Glucose 05/23/18 05/22/18 05/22/18 06:37 21:29 16:43 POC Glucose 205 H 229 H 195 H 05/22/18 12:07 POC Glucose 153 H Discharge Diet: Low fat/ Low Cholesterol, - - Cardiac diet Discharge Activity: May Not Drive Call your doctor if your incision/area has: Continuous Slow Oozing, Sudden Increased Bleeding, Increased Pain/ Swelling, Increased Redness, Foul Smelling Discharge, Swelling at the incision site Call your doctor if you observe: Fever of 101 or Higher, Coldness, Increased Pain, Numbness or Tingling, Change in Color, Inability to urinate, Inability to have a bowel movement, Using more than one pad per hour, Shortness of breath, Dizziness, Fainting spells, Swelling in the ankles, Chest pain, Prolonged hiccoughing, Increased palpitations (irregular heartbeat), Calf discomfort, Uncontrolled pain Home Medications: Medications to take at Discharge Aspirin E.C. [Ecotrin] 81 mg PO DAILY 12/23/17 Atorvastatin Calcium [Lipitor] 80 mg PO QHS 12/23/17 Lansoprazole 15 mg PO DAILY 12/23/17 Nitroglycerin [Nitrostat] 0.4 mg SUBLINGUAL Q5M PRN #10 tab 12/25/17 Carvedilol [Coreg (Beta Kaz)] 3.125 mg PO BID 05/15/18 Chlorthalidone [Hygroton] 25 mg PO DAILY 05/15/18 Docusate Sodium [Colace] 100 mg PO DAILY 05/15/18 Insulin Lispro [Humalog KwikPen] See Protocol [place] ACHS insuln.pen 05/23/18 Metformin HCl 500 mg PO BID #60 tablet 05/23/18 Following Prescrptions Were Given to Patient: Metformin HCl 500 mg PO BID #60 tablet Primary Care Physician: Miguel Love MD [Primary Care Provider] - Please Follow Up With: [employer] - Speech Therapy When: They will call you to schedule an appointment Please Follow Up With: [facility] ([facility]) When: Pt. needs to set up appt. When: F/U with Neurosurgery in 1-2 weeks When: F/U Cardiology in 1-2 weeks Disposition: Home Patient Condition:: Stable Rehab Course 67-year-old male with PMH HTN, HLD, DM, CAD status post stent (12/23/2017), found to have right SDH status post craniotomy 05/11/2018 at [facility], admitted to [facility] inpatient rehab unit on 05/15/2018 with debility status post SDH and craniotomy, with a goal of returning home at or near his prior level of functional independence. At present patient denies any headache, focal motor weakness, sensory loss, dizziness. Patient was on aspirin and Plavix for his coronary stents prior to the SDH. Per documentation following the SDH patient has been restarted on aspirin and DVT prophylaxis. Per documentation cardiology is okay with continuing only aspirin at this point given SDH. Patient tolerated therapies well. He had further uncomplicated hospital course. Follow up with PCP, Neurosurgery and Cardiology 1-2 weeks as outpatient. Patient to follow up with Dr. Sena Cardiology for decision about when to restart Plavix as well as he needs to follow up with neurosurgery for the same. Patient advised not to drive, needs clearance from Neurosurgery for driving and recommend OT simulation test for driving clearance. Meaningful Use Info Meaningful Use Diagnoses (Choose all that apply): None applicable
[2018-05-23] MEDS: Insulin Lispro 100 UNIT/ML INSULN.PEN SC (08:36)
[2018-05-23] MEDS: Carvedilol 3.125 MG TABLET PO (08:37)
[2018-05-23] MEDS: Chlorthalidone 50 MG Tablet 25 MG PO (08:37)
[2018-05-23] MEDS: Pantoprazole Sodium 20 MG Tablet PO (08:37)
[2018-05-23] MEDS: Aspirin E.C. 81 MG Tablet PO (08:37)
--- NOTE | 2018-05-23 09:11 | CASEMGMT ---
Social Work SW met with pt and pt girlfriend Deanne in pt room. Discussed completing advance directives with him. Deanne provided SW with copy of pt completed HCPOA. Pt indicating that he would like to complete living will as well. Living will reviewed with pt and completed. Copy of both HCPOA and LW placed on pt chart. Pt admitted with diagnosis of SDH. SW completed PHQ9 depression screen with pt. Pt scored /. No indications of depression at this time and pt denies any feelings of depression. VANNESSA Holland
--- NOTE | 2018-05-23 10:54 | PN_ITS ---
Subjective: Discussed discharge planning with patients with hemoglobin A1c reviewed, 7% and noted that at this point patient would probably benefit from transition off of prior insulin regimen which was just recently confirmed from [facility] to oral antihypoglycemic regimen. Patient was extremely adamant against usage of any metformin but willing to utilize glipizide. Glipizide was called into receive his preference. Patient eager for discharge to home and continue therapies on an outpatient basis. He will be staying with his girlfriend who was present at discharge. Patient denies fevers, chills, nausea, emesis, abdominal pain, chest pain or dyspnea. Objective: Physical Examination: General: awake, alert, oriented to self, place, oriented x 3, talkative, NAD. Skin: normal color, turgor, no icterus, cyanosis except noted shaved right head with incisions intact. HEENT: AT/NC, EOMI, PERRLA, MMM. Lungs: CTA bilaterally, moderate effort, mild decrease BL bases, no rales, ronchi or wheezing. Heart: Bradycardic with regular rhythm; no gallop, rub audible. Abdomen: soft, overweight, NTTP, ND, normal BS. Extremities: no cyanosis, clubbing, or edema. Neurological: patient awake, alert, oriented noted; cognitive function intact; pupils equally reactive to light and accomodation; cranial nerves II-XII grossly normal, moving all 4 extremities, no focal deficits, strength improved, mildly to moderately globally decreased, status post craniotomy, incisions well appearing right cranium. Psychiatric: affect appears normal, remains talkative, mild agitation when discussed possible use metformin, calmed during discussions, no acute evidence of depressive or anxiety feelings. Vitals/I&O's: Vital Signs Temp Pulse Resp BP Pulse Ox 97.9 F 60 16 112/53 L 94 05/23/18 07:00 05/23/18 07:00 05/23/18 07:00 05/23/18 07:00 05/23/18 07:00 Oxygen Delivery Method Room Air Weight: 175 lb 14.862 oz Body Mass Index (BMI) 29.5 Intake and Output for Last 24 Hours 05/21/18 05/22/18 05/23/18 23:59 23:59 23:59 Intake Total 780 / 780 240 / 240 360 / 360 Balance 780 / 780 240 / 240 360 / 360 Laboratory Results 05/22/18 12:07: POC Glucose 153 H 05/22/18 16:43: POC Glucose 195 H 05/22/18 21:29: POC Glucose 229 H 05/23/18 06:37: POC Glucose 205 H [facility] Admin: 05/23/18 08:37 Dose: 81 mg Atorvastatin Calcium (Lipitor) 80 mg PO QHS [facility] Last Admin: 05/22/18 21:31 Dose: 80 mg Bisacodyl (Dulcolax) 10 mg RECTAL .PRN X 1 PRN PRN Reason: Constipation Carvedilol ([facility]g) [facility] Last Admin: 05/23/18 08:37 Dose: 3.125 mg Chlorthalidone (Hygroton) 25 mg PO DAILY [facility] Last Admin: 05/23/18 08:37 Dose: 25 mg Enoxaparin Sodium (Lovenox) 40 mg SC DAILY@0600 [facility] Last Admin: 05/23/18 05:58 Dose: 40 mg Insulin Human Lispro (Humalog Kwikpen (Bkc)) 0 unit SC [facility]; Protocol Last Admin: 05/23/18 08:36 Dose: 2 units Lactobacillus Acidophilus (Acidophilus) 1 tablet PO DAILY [facility] Last Admin: 05/23/18 08:37 Dose: 1 tablet Magnesium Hydroxide (Milk Of Magnesia) 30 ml PO .PRN X 1 PRN PRN Reason: Constipation Last Admin: 05/16/18 06:19 Dose: 30 ml Melatonin (Melatonin) 3 mg PO QHS [facility] Last Admin: 05/22/18 21:30 Dose: 3 mg Nitroglycerin (Nitrostat) 0.4 mg SUBLINGUAL Q5M PRN PRN Reason: Angina pain Pantoprazole Sodium (Protonix) 20 mg PO DAILY [facility] Last Admin: 05/23/18 08:37 Dose: 20 mg Polyethylene Glycol (Miralax) 17 gm PO DAILY PRN PRN PRN Reason: CONSTIPATION Psyllium Hydrophilic Mucilloid (Metamucil) 1 packet PO DAILY [facility] Last Admin: 05/23/18 08:41 Dose: Not Given Senna/Docusate Sodium (Senokot-S, Elizabeth-Colace) 2 tablet PO BID [facility] Last Admin: 05/23/18 08:41 Dose: Not Given Medical Necessity - Tobacco Use Smoking Status: Former smoker Tobacco Use: Non-smoker Assessment/Plan All Active Problems (Last Reviewed 05/16/18 @ 12:01 by Drake Man MD) STEMI (ST elevation myocardial infarction) (Resolved) The patient is a 67 y/o M w/ PMHx: HTN, HLD, CAD s/p PCI, Diabetes mellitus type II, GERD who presents to the [facility] on 05/16/18 for ongoing therapy s/p spontaneous right-sided subdural hematoma with no trauma history status post craniotomy. (1) Spontaneous R Sided SDH: Status post hospitalization in [facility] following noted subdural right-sided hematoma, no history of trauma, had been on aspirin and Plavix concurrently for prior history of coronary disease status post PCI, 05/11/18 amniotomy performed, allowed to transition to baby aspirin as well as chemoprophylaxis per neurosurgery. Repeat CT head 05/22/18 with nearly complete evacuation of previous right-sided subdural hemorrhage with no residual mass- effect or acute abnormality. PT, OT, Speech evaluations performed with plan discharge to outpatient therapies on 05/23/18. (2) CAD, Hx MS: s/p MS inferior wall, PCI LAURA (2.5X20 Promus Synergy) to mid RCA 12/23/17; LAURA (2.25 X 12 Promus Synergy) to distal RCA/proximal PDA, as well as POBA to ostial PL Branch with 2.0 X12 balloon 01/22/18, allowed to continue on baby aspirin only, plavix discontinued with recent SDH, statin, Coreg re gimen. From OSH notes Cardiology had been amenable to transition to ASA. (3) Diabetes mellitus type II: Confirmed that patient had been on insulin 70/30 regimen BID, 20-22 units, given HgbA1c 7% discussed discontinuation of this regmen and transition to oral regimen. Patient extremely adamant against usage of metformin but willing to utilize glipizide. Glipizide was called into his pharmacy. Nutrition education reviewed for appropriate blood sugar control. Encourage patient to follow-up with his primary care physician and have repeat hemoglobin A1c checked on a new regimen. (4) Hypertension: Continue home regimen including Coreg, chlorthalidone, PRN hydralazine. (5) Hyperlipidemia: Continue home statin regimen. (6) GERD: PPI. (7) DVT prophylaxis: SCD, Lovenox cleared per neurosurgery. Code Visit Inpatient E&M: 02256 Subs Hosp L2
[2018-05-23 11:15] VITALS: BP 112/53; PULSE 60; RESP 16; TEMP 36.6; O2SAT 94; BMI 29.5
--- NOTE | 2018-05-23 11:15 | NURSING ---
Patient verbalized understanding to discharge instructions given.
== END 2018-05-23 11:15 | disposition home or self-care (01) | DRG 948 ==
PROVIDERS: Internal Medicine; Psychiatry & Neurology Neurology; Admitting Provider Psychiatry & Neurology Neurology; Family Provider Family Medicine; PCP Family Medicine; Referring Provider Psychiatry & Neurology Neurology; Visit Provider Family Medicine
DX: R53.81 Other malaise (principal); E78.5 Hyperlipidemia, unspecified; I25.10 Atherosclerotic heart disease of native coronary artery without angina pectoris; I10 Essential (primary) hypertension; E11.9 Type 2 diabetes mellitus without complications; K21.9 Gastro-esophageal reflux disease without esophagitis; I25.2 Old myocardial infarction; Z86.73 Personal history of transient ischemic attack (TIA), and cerebral infarction without residual deficits; Z95.5 Presence of coronary angioplasty implant and graft; Z87.891 Personal history of nicotine dependence
CPT/HCPCS: 36415; 70450; 80048; 82962; 83036; 84132; 85027; 92507; 92523; 92610; 93005; 97110; 97116; 97162; 97166; 97530; 97535; 97802

== ENCOUNTER 2018-07-10 13:30 | Outpatient (RCR) | payer MEDICARE, OTHER, SELFPAY ==
[2018-05-26 09:03] VITALS: BMI 29.5
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
--- NOTE | 2018-07-10 17:56 | HP.SP.DC_ITS ---
ST Discharge Summary - Discharged: Discharge: The Patient is an 67 year old male who attended 6 skilled speech- language intervention sessions spanning from 06/05/2018 to 07/10/2018 targeting cognitive communication abilities secondary to mild to moderate cognitive communication deficits secondary to an acute right subdural hematoma involving the right frontal parietal occipital lobes with mass effect. The Patient participated in intervention sessions consisting of training and implementation of external cognitive processing strategies, emotional regulation training, and communication strategy training. The Patient has expressed desire to discharge from the caseload at this time, as the Patient and Patients significant other report all personal goals have been achieved, and no impact on daily functioning appreciated, with this clinician in agreement. Reviewed strategies and improvements gleaned throughout the intervention cycle, with the Patient highly encouraged to contact his primary care physician and if desired this clinician if any changes occur or desire to re-initiate intervention are appreciated. Will discharge from the skilled speech-language pathology caseload at this time per Patent and family request, though would gladly re-initiate intervention as needed moving forward.
== END 2018-07-10 19:00 | disposition home or self-care (01) ==
LOC: SP 13:30
PROVIDERS: Family Provider Family Medicine; PCP Family Medicine; Referring Provider Psychiatry & Neurology Neurology; Visit Provider Psychiatry & Neurology Neurology
DX: I69.228 Other speech and language deficits following other nontraumatic intracranial hemorrhage (principal)
CPT/HCPCS: 92507; 92523

== ENCOUNTER 2018-10-22 18:39 | Inpatient (IN) | payer MEDICARE, OTHER, SELFPAY ==
[2018-06-05 14:41] VITALS: BMI 27.9
[2018-10-22] VITALS (9 sets, daily range): BP systolic 118–143; BP diastolic 81–94; PULSE 55–96; RESP 15–22; TEMP 36.5–36.7; O2SAT 95–99; BMI 31.4; BMI 30.3
--- NOTE | 2018-10-22 18:43 | ED.RN ---
CALLED FOR EKG PER RN REQUEST, PULLED OLD EKGS FOR
--- NOTE | 2018-10-22 18:53 | EKG12_ITS ---
Test Reason : CP Blood Pressure : / mmHG Vent. Rate : 125 BPM Atrial Rate : 077 BPM P-R Int : 150 ms QRS Dur : 092 ms QT Int : 360 ms P-R-T Axes : 054 004 -09 degrees QTc Int : 519 ms Atrial flutter with aberrancy vs. ventricular tachycardia, alternating with normal sinus rhythm Nonspecific ST and T wave abnormality Abnormal ECG Confirmed by GINGER ROTHMAN ([id number]), production editor DUTCH JOHNSON ([id number]) on 10/29/2018 8:03:53 AM Referred By: Jazmyn Velez Confirmed By:GINGER ROTHMAN
--- NOTE | 2018-10-22 18:55 | RAD_ITS ---
STUDY: X-RAY CHEST REASON FOR EXAM: Male, 67 years old. Palpitations TECHNIQUE: Single AP portable view of the chest. COMPARISON: 12/23/2017. FINDINGS: The lungs are clear and expanded. Elevation of the right hemidiaphragm. There is no demonstrated pleural abnormality. Normal size heart. Normal mediastinum and malcolm. Normal visualized pulmonary arteries. Normal visualized aortic arch and descending thoracic aorta. Normal visualized thoracic spine. Normal visualized ribs, clavicles, and shoulders. There is no demonstrated abnormality of the visualized soft tissue structures of the upper abdomen. RAD/Chest 1 View (Portable) IMPRESSION: Normal x-ray examination of the chest. Electronically Signed: Alfredo Ham MD at 19:18 EDT , Service support ,
[2018-10-22 19:06] LABS: Absolute Lymphocyte Count 1.66 X10^3/uL (0.83-4.51); Basophil# 0.06 X10^3/uL; Basophil% 0.8 % (0-1); Eosinophils% 1.3 % (0-5); Hematocrit 47.6 % (40-54); Hemoglobin 16.2 g/dL (13.0-16.5); Lymphocyte # 1.66 X10^3/ul (4.0); Lymphocyte % 22.3 % (19-41); Mean Corpuscular Hgb 30.3 pg (27.0-32.0); Mean Platelet Vol. 10.5 fl (6.2-12.0); Monocyte# 0.53 X10^3/uL; Monocyte% 7.1 % (0-10); NRBC Flagged by Analyzer 0 % (0-5); Neutrophil # 5.03 X10^3/uL (2.7-7.7); Neutrophil % 67.7 % (47-70); Platelet Count 172 K/mm3 (150-450); RBC Distribution Width SD 42.1 fl (35.1-43.9); Red Blood Count 5.35 M/mm3 (4.6-6.2); White Blood Count 7.4 K/mm3 (4.4-11.0)
[2018-10-22] MEDS: Metoprolol Tartrate 5 MG/5 ML Vial IV ×2 (19:08→19:15)
[2018-10-22] MEDS: Aspirin 81 MG TAB.CHEW 324 MG PO (19:26)
[2018-10-22 19:35] LABS: Anion Gap 5 (5-15); BUN 20 mg/dL (7-18); Chloride 103 mmol/L (98-107); Creatinine, Serum 1.25 mg/dL (0.70-1.30); EST Glomerular Filtration Rate 62 mL/min (>60); Est Glom Filt Rate - Afr Amer 74 mL/min (>60); Glucose 243 mg/dL (74-106); Potassium 3.6 mmol/L (3.5-5.1); Sodium Level 135 mmol/L (136-145)
--- NOTE | 2018-10-22 20:34 | ED.VIS.CHEST ---
History of Present Illness Chief Complaint: Palpitations Informant: EMS Narrative: Patient presenting secondary to palpitations. Patient has an underlying history of coronary artery disease. He reports that since yesterday he has been dealing with intermittent issues with palpitations and shortness of breath. He reports that throughout the course of the day today they became more persistent and were associated with some chest pain so he came to the emergency department for further evaluation. Patient denies recent infection or illness. Patient denies any history of cardiac arrhythmia in the past. No exacerbating relieving factors. Review of systems otherwise negative. Past Medical History - Allergies and Home Meds Allergies/Adverse Reactions: Allergies lisinopril Adverse Reaction (Intermediate, Verified 10/22/18 18:39) COUGH Primary Care Physician: Miguel Love MD [Primary Care Provider] - Past Medical History: - - Coronary artery disease Surgical History: - - PCI x 6, appendectomy, eye surgery in youth. Smoking Status: Former smoker - Family History Maternal Family History: Family History (Last Reviewed 06/05/18 @ 14:44 by Felipa Tee) Father Negative for ASCVD Mother Negative for ASCVD Family History: Reports: - - Patient denies any marked maternal or paternal family history of heart disease, diabetes, cancer. Paternal Family History: Family History (Last Reviewed 06/05/18 @ 14:44 by Felipa Tee) Father Negative for ASCVD Mother Negative for ASCVD Family History: Reports: - - Patient denies any marked maternal or paternal family history of heart disease, diabetes, cancer. Review of Systems All systems negative except as indicated General: Denies: Fever Cardiovascular: Reports: Chest pain, Palpitations Respiratory: Reports: Dyspnea Physical Exam Vital Signs/Narrative: Vital Signs Temp Pulse Resp BP Pulse Ox 10/22/18 19:55 70 16 143/92 H 98 10/22/18 18:40 98.0 F 88 20 H 134/94 H 98 General: Well nourished, Well developed, No Acute Distress Head: Normocephalic, Atraumatic Eyes: Perrl, EOMI ENT: Moist mucous membranes, No rhinorrhea Neck: Supple, Nontender, No JVD Cardiovascular: Irregular, Tachycardia, - - 1+ radial pulses bilaterally symmetric Respiratory: No distress, CTA bilaterally, Chest nontender Abdomen: Soft, Nontender, Nondistended, Normal bowel sounds Back: Nontender, Normal Inspection Extremities: Nontender, No edema Skin: Normal color, No rash Neurological: Alert, Oriented x3, Cranial nerves II-XII grossly intact, Normal Strength, Normal Sensation Psychological: Normal affect, Normal Mood Diagnostic/Tx/Re-eval Chest X-Ray - ED: - - Single view chest x-ray by my personal interpretation as well as radiology is negative for acute process - Rhythm Strip Rhythm Strip: Narrow complex tachycardic irregular rhythm with PVCs and occasional conversion back to sinus Rate: 165 Ectopy: PVC(s) - EKG Initial EKG Interpretation: - - Wide-complex rhythm for the first two thirds of the twelve-lead EKG with a rate in the 120s then conversion to a narrow complex sinus rhythm with no evidence of ST elevation or T wave changes - Medical Decision Making Patient presented secondary to palpitations. Patient's rhythm on telemetry monitoring and EKG was extremely abnormal but as far as I can interpret this seems to be either atrial fibrillation or atrial flutter with aberrancy and then spontaneous conversion back into a sinus rhythm. Really does not seem like a presentation of ventricular tachycardia. Patient did get improvement with 3 doses of 5 mg of Lopressor. Ultimately the patient's CBC chemistry and troponin were negative. I consulted with cardiology who recommended placing the patient on amiodarone drip. Patient will be admitted for further work-up to the PCU. Critical care time (excluding procedures): Performing Direct Patient Care at Bedside ED Disposition - Plan for ED Patient: Disposition: Acute Care [facility] Diagnosis: Atrial flutter
--- NOTE | 2018-10-22 20:36 | HP.PCM_ITS ---
Problem List (1) Atrial flutter Status: Acute Qualifiers: Atrial flutter type: atypical Qualified Code(s): I48.4 - Atypical atrial flutter (2) Bradycardia Status: Chronic (3) History of louann hole surgery Status: Chronic Comment: Right louann hole drainage of subdural hematoma, with placement of subdural gravity drain per Dr. Poli Segura @ [facility] (4) Subdural hematoma Status: Chronic (5) Atherosclerotic heart disease of [place] coronary artery without angina pectoris Status: Chronic Qualifiers: [place] vs. transplanted heart: unspecified whether [place] or transplanted heart Qualified Code(s): I25.10 - Atherosclerotic heart disease of [place] coronary artery without angina pectoris Comment: LAURA (2.5X20 Promus Synergy) to RCA; pt to have staged procedure for PCI of ostial PDA (6) History of acute inferior wall CT Status: Chronic (7) HTN (hypertension) Status: Chronic Qualifiers: Hypertension type: essential hypertension Qualified Code(s): I10 - Essential (primary) hypertension (8) HLD (hyperlipidemia) Status: Chronic Qualifiers: Hyperlipidemia type: pure hypercholesterolemia Qualified Code(s): E78.00 - Pure hypercholesterolemia, unspecified; E78.0 - Pure hypercholesterolemia (9) Diabetes mellitus, type II Status: Chronic Qualifiers: Diabetes mellitus emt intermediate insulin use: without emt intermediate use Diabetes mellitus complication status: with other specified complication Qualified Code(s): E11.69 - Type 2 diabetes mellitus with other specified complication (10) GERD (gastroesophageal reflux disease) Status: Chronic Qualifiers: Esophagitis presence: esophagitis presence not specified Qualified Code(s): K21.9 - Gastro-esophageal reflux disease without esophagitis History of Present Illness Date of Admission: 10/22/18 Chief Complaint: Palpitations, racing. The patient is a 67 y/o M w/ PMHx: CAD s/p PCI > 6, HTN, HLD, GERD, Diabetes mellitus type II, Hx spontaneous SDH s/p right louann hole drainage/craniotomy, Hx bradycardia who presents to the [facility] ED on 10/22/18 with history of 3 to 4-week history of ongoing prolonged periods of racing heart with associated dyspnea which he notes would intermittently resolve however on evening prior to ED presentation he did note onset of right shoulder discomfort up into his left neck but this seemed to improve some with application of BenGay however he had recurrent palpitations and racing heart on day of ED presentation with onset of midsternal chest discomfort described as an aching but at its worst rated at 10 out of 10 with associated notable dyspnea with no diaphoresis, nausea or emesis associated prompting eventual EMS call with very notable urging for him to present to the hospital for evaluation. From discussion with ED and review of EMS strips the patient had notable arrhythmia, prehospital appearance of VT however on telemetry he was noted to also be sinus with narrow complex and then would transition up to a rate of 160s with an intermittent PVC and then a return to sinus rhythm which was also reviewed per cardiology and possibly suspected to have atrial flutter with an underlying aberrancy. Work-up in the ED included T 98, heart rate 70 to 90s, BP 134/94, respiratory rate 16, 98% on 2 L nasal cannula, CBC unremarkable, BMP with sodium 135, BUN 20, creatinine 1.25, glucose 243, troponin 0.017, chest x-ray with no acute cardiopulmonary findings. In the ED patient administered IV Lopressor x 5, aspirin, amiodarone. Cardiology consulted, agreed with atypical appearance, possible atrial flutter with aberrancy. Past Medical History Past Medical History (Chronic Problems): Chronic Problems (Last Reviewed 06/05/18 @ 14:44 by Feilpa Tee) Old myocardial infarction (Chronic) Besides the inferior CT 12/23/17, patient apparently had CT's and stents in 2012 and in 2014 Bradycardia (Chronic) History of louann hole surgery (Chronic 05/05/18) Right louann hole drainage of subdural hematoma, with placement of subdural gravity drain per Dr. Poli Segura @ [facility] Subdural hematoma (Chronic 05/05/18) Stented coronary artery (Chronic 01/22/18) Patient has had multiple stents in 2012 and 2014 but we do not have those records. LAURA (2.5X20 Promus Synergy) to mid RCA 12/23/17; LAURA (2.25 X 12 Promus Synergy) to distal RCA/proximal PDA, as well as POBA to ostial PL Branch with 2.0 X12 balloon 01/22/18 Atherosclerotic heart disease of [place] coronary artery without angina pectoris (Chronic 12/23/17) LAURA (2.5X20 Promus Synergy) to RCA; pt to have staged procedure for PCI of ostial PDA History of acute inferior wall CT (Chronic 12/23/17) HTN (hypertension) (Chronic) HLD (hyperlipidemia) (Chronic) Diabetes mellitus, type II (Chronic) GERD (gastroesophageal reflux disease) (Chronic) Medical History: Medical History (Last Reviewed 06/05/18 @ 14:44 by Felipa Tee) Old myocardial infarction (Chronic) I25.[address] 12/23/17, patient apparently had CT's and stents in 2012 and in 2014 Bradycardia (Acute) R00.1 Subdural hematoma (Acute) Onset Date: 05/05/18 S06.5X9A Atherosclerotic heart disease of [place] coronary artery without angina pectoris (Chronic) Onset Date: 12/23/17 I25.10 LAURA (2.5X20 Promus Synergy) to RCA; pt to have staged procedure for PCI of os tial PDA History of acute inferior wall CT (Chronic) Onset Date: 12/23/17 I25.2 HTN (hypertension) (Chronic) I10 HLD (hyperlipidemia) (Chronic) E78.5 Diabetes mellitus, type II (Chronic) E11.9 GERD (gastroesophageal reflux disease) (Chronic) K21.9 Allergies lisinopril Adverse Reaction (Intermediate, Verified 10/22/18 18:39) COUGH Home Medications: Ambulatory Orders Medication Instructions Recorded Aspirin E.C. [Ecotrin] 81 mg PO DAILY 12/23/17 Atorvastatin Calcium [Lipitor] 80 mg PO DAILY 12/23/17 Lansoprazole 15 mg PO DAILY 12/23/17 Nitroglycerin (INPATIENT USE) 0.4 mg SUBLINGUAL Q5M PRN #10 tab 12/25/17 [Nitrostat] Docusate Sodium [Colace] 100 mg PO DAILY 05/15/18 Lactobacillus acidophilus capsule 1 cap PO DAILY 06/03/18 chlorthalidone 25 mg tablet 25 mg PO DAILY 06/03/18 Amlodipine Besylate 5 mg PO DAILY 10/22/18 Glipizide 10 mg PO BID 10/22/18 Insulin Aspart [Novolog Flexpen] 0 units SQ BIDCM 10/22/18 Psyllium Husk [Metamucil] 0.52 gm PO DAILY 10/22/18 Surgical History: Surgical History (Last Reviewed 06/05/18 @ 14:44 by Felipa Tee) History of louann hole surgery (Acute) Onset Date: 05/05/18 Z98.890 Right louann hole drainage of subdural hematoma, with placement of subdural gravity drain per Dr. Poli Segura @ [facility] Stented coronary artery (Chronic) Onset Date: 01/22/18 Z95.5 Patient has had multiple stents in 2012 and 2014 but we do not have those records. LAURA (2.5X20 Promus Synergy) to mid RCA 12/23/17; LAURA (2.25 X 12 Promus Sy nergy) to distal RCA/proximal PDA, as well as POBA to ostial PL Branch with 2.0 X12 balloon 01/22/18 History of appendectomy Z90.49 History of eye surgery Z98.890 Surgical History: - - PCI x 6, appendectomy, eye surgery in youth, louann hole/craniotomy status post spontaneous SDH. Psychiatric History: Depression Lives: Spouse/ Significant Other Smoking Status: Former smoker Tobacco Use: Non-smoker Alcohol: None Drugs: None - *Family History Maternal Family History: Family History (Last Reviewed 06/05/18 @ 14:44 by Felipa Tee) Father Negative for ASCVD Mother Negative for ASCVD History Items: - - Patient denies any marked maternal or paternal family history of heart disease, diabetes, cancer. Paternal Family History: Family History (Last Reviewed 06/05/18 @ 14:44 by Felipa Tee) Father Negative for ASCVD Mother Negative for ASCVD History Items: - - Patient denies any marked maternal or paternal family history of heart disease, diabetes, cancer. Review of Systems Constitutional: Reports: Anorexia, Malaise, Weakness, Fatigue. Denies: Chills, Fever, Weight Change HEENT: Denies: Head Aches, Sinus Congestion, Sinus Drainage Cardiovascular: Reports: Chest Pain, Palpitations. Denies: Chest Pressure, Chest Tightness, Heaviness, Light Headedness, Orthopnea, Paroxysmal Noc. Dyspnea, Syncope Respiratory: Reports: Shortness of Breath, Shortness of breath at rest, Shortness of breath upon exertion. Denies: Cough, Sputum production, Wheezing Gastrointestinal: Denies: Abdominal Pain, Nausea, Vomiting Genitourinary: Denies: Dysuria Musculoskeletal: Denies: Joint Pain, Joint Tenderness Skin: Denies: Rash, Wounds Neurological: Denies: Numbness, Tingling, Focal weakness Psychiatric: Denies: Anxiety, Depression, Homicidal Ideations, Suicidal Ideations Hematologic/ Lymphatic: Denies: Easy Bruising, Easy Bleeding VTE Information - Inpt Only VTE Present on Admission: No VTE Mechan Device Prophylaxis: SCD's VTE Pharm Prophylaxis ordered?: Yes Patient Problems: Active and Suspected Problems (Last Reviewed 06/05/18 @ 14:44 by Felipa Tee) Atrial flutter (Acute) Subjective: Seated upright in the ED bed, fatigued appearance, notes chest ache has improved. Objective: Physical Examination: General: awake, alert, oriented x 3 and cooperative, seated upright in the ED bed, notes improved since initial presentation. Skin: normal color, turgor, no icterus, cyanosis. HEENT: AT/NC, EOMI, PERRLA, dry MM, no carotid bruits or JVD noted. Lungs: CTA bilaterally, moderate effort, mild decrease BL bases, no rales, ronchi or wheezing. Heart: Improved, currently mildly bradycardic with regular rhythm; no gallop, rub audible. Abdomen: soft, obese, NTTP, ND, normal BS, no HSM. Extremities: no cyanosis, clubbing, or edema. Neurological: patient awake, alert, oriented x 3; cognitive function intact; pupils equally reactive to light and accomodation; cranial nerves II-XII grossly normal, moving all 4 extremities, no focal deficits, strength moderately to severely global decrease secondary to acute presentation. Psychiatric: affect appears normal, talkative, no acute evidence of depressive or anxiety feelings. - Physical Exam Vital Signs Temp Pulse Resp BP Pulse Ox 98.0 F 70 16 143/92 H 98 10/22/18 18:40 10/22/18 19:55 10/22/18 19:55 10/22/18 19:55 10/22/18 19:55 Oxygen Flow Rate (L/min) 2 Oxygen Delivery Method Nasal Cannula Weight: 206 lb 9.17 oz Body Mass Index (BMI) 31.4 Laboratory Tests Past 24 Hrs 10/22/18 10/22/18 18:45 18:45 WBC 7.4 RBC 5.35 Hgb 16.2 Hct 47.6 MCV 89.0 MCH 30.3 MCHC 34.0 RDW Std Deviation 42.1 RDW Coeff of Kera 13.0 Plt Count 172 MPV 10.5 Immature Gran % (Auto) 0.800 Neut % (Auto) 67.7 Lymph % (Auto) 22.3 [place] % (Auto) 7.1 Eos % (Auto) 1.3 Baso % (Auto) 0.8 Absolute Neuts (auto) 5.0 Absolute Lymphs (auto) 1.66 Nucleated RBC % 0 Sodium 135 L Potassium 3.6 Chloride 103 Carbon Dioxide 27.0 Anion Gap 5 BUN 20 H Creatinine 1.25 Estim Creat Clear Calc 57.00 Est GFR (MDRD) Af Amer 74 Est GFR (MDRD) Non-Af 62 BUN/Creatinine Ratio 16.0 Glucose 243 H Calcium 9.0 Troponin I 0.017 Assessment/Plan All Active Problems (Last Reviewed 06/05/18 @ 14:44 by Felipa Tee) Atrial flutter (Acute) STEMI (ST elevation myocardial infarction) (Resolved) The patient is a 67 y/o M w/ PMHx: CAD s/p PCI > 6, HTN, HLD, GERD, Diabetes mellitus type II, Hx spontaneous SDH s/p right louann hole drainage/craniotomy, Hx bradycardia who presents to the [facility] ED on 10/22/18 with history of 3 to 4-week history of ongoing prolonged periods of racing heart with associated dyspnea which he notes would intermittently resolve however on day of presentation he had recurrent palpitations and racing heart with onset of midsternal chest discomfort described as an aching. 1. New onset atypical cardiac arrhythmia, suspected atrial flutter with aberrancy with RVR with notable palpitations, chest discomfort: Will admit to PCU, maintain on telemetry, maintain on amiodarone drip per cardiology request, obtain cardiac enzyme serial set, obtain magnesium level, obtain ECHO, obtain TS H level. Given history of spontaneous right-sided subdural hemorrhage in April of current year will defer any anticoagulation. Cardiology consulted. 2. Hx Spontaneous R Sided SDH: Status post hospitalization in [facility] following noted subdural right-sided hematoma, no history of trauma, had been on aspirin and Plavix concurrently for prior history of coronary disease status post PCI, 05/11/18 amniotomy performed, allowed to transition to baby aspirin as well as chemoprophylaxis per neurosurgery. Repeat CT head 05/22/18 with nearly complete evacuation of previous right-sided subdural hemorrhage with no residual mass-effect or acute abnormality. PT, OT, Speech evaluations performed with plan discharge to outpatient therapies on 05/23/18. 3. CAD, Hx CT: s/p CT inferior wall, PCI LAURA (2.5 x 20 Promus Synergy) to mid RCA 12/23/17; LAURA (2.25 X 12 Promus Synergy) to distal RCA/proximal PDA, as well as POBA to ostial PL Branch with 2.0 X12 balloon 01/22/18, plus several PCI interventions per report prior but unclear placement and amount, allowed to continue on baby aspirin only, statin regimen. Patient had previously been on Coreg however he does have bradycardia, likely the etiology of its discontinuation. 4. Diabetes mellitus type II: Recent Acute Rehabilitation stay with noted HgbA1c 7%, will hold home oral regimen, maintain on Accu-Cheks with insulin sliding scale. 5. Hypertension: Continue home regimen including chlorthalidone, Norvasc, PRN hydralazine. 6. Hyperlipidemia: Continue home statin regimen. 7. GERD: PPI. 8. DVT prophylaxis: SCD, Lovenox. 9. CODE status: Significant other present, healthcare power of tax associate attorney. Discussed CODE status at length including difference between FULL code, DNR-CCA and DNR-CC status. Following discussions about the differences in these status, requested continuation full CODE STATUS. Advanced Care Planning Face to Face Time: 16 minutes. Code Visit Inpatient E&M: 18930 Init Hosp L3 Procedures: 76795 Advncd Care Plan 30 Min
--- NOTE | 2018-10-22 22:25 | ECHOCS_ITS ---
Reason For Study: AFIB/FLUTTER Procedure This was a 2D Doppler, Color Flow transthoracic echocardiogram. The study was technically difficult. Due to body habitus. Contrast injection was performed. Left Ventricle Normal LV size. The estimated ejection fraction is 50 %. Mild segmental systolic dysfunction (see wall motion). Stage 1 diastolic dysfunction. Infero-Basal: Mildly hypokinetic. Basal inferoseptal: Mildly hypokinetic. Right Ventricle Normal RV size. Normal systolic function. Atria Normal left atrium. Normal right atrium. Mitral Valve Normal mitral valve. Tricuspid Valve Normal tricuspid valve. Aortic Valve Normal aortic valve. Pulmonic Valve Normal pulmonic valve. Great Vessels Normal aortic root. The pulmonary artery is normal size. Pericardium/Pleural No pericardial effusion. Medication Diluted definity 3.0ml given slow IV push to enhance endocardial definition. MMode/2D Measurements & Calculations LVIDd: 5.2 cm IVSd: 1.1 cm Ao root diam: 3.5 cm LVIDs: 4.1 cm LVPWd: 1.00 cm RVDd: 3.1 cm FS: 21.1 % LAV(MOD-bp): 48.7 ml LA A4 area: 15.5 cm2 LA dimension(2D): 4.5 cm LAV(MOD-bp) Indexed: 23.9 ml/m2 LAV(MOD-sp2): 51.5 ml LAV(MOD-sp4): 43.5 ml RA A4 area: 12.9 cm2 Time Measurements MV dec time: 0.15 sec Doppler Measurements & Calculations MV E max cornelio: 60.5 cm/sec Lat Peak E' Cornelio: 7.3 cm/sec Med Peak E' Cornelio: 4.7 cm/sec MV A max cornelio: 73.1 cm/sec E/E' lat: 8.3 E/E' med: 12.8 MV E/A: 0.83 Ao V2 max: 109.0 cm/sec LV V1 max: 68.8 cm/sec PA V2 max: 55.1 cm/sec Ao max P.8 mmHg LV V1 max P.9 mmHg Interpretation Summary Normal LV size. The estimated ejection fraction is 50 %. Mild segmental systolic dysfunction (see wall motion). Stage 1 diastolic dysfunction. Contrast injection was performed. Ordering Physician: Jazmyn Velez Referring Physician: Miguel Love Performed By: Kristina Rose, JULITA, RVT
--- NOTE | 2018-10-22 22:31 | EKG12_ITS ---
Test Reason : RHYTHM CHANGE Blood Pressure : / mmHG Vent. Rate : 057 BPM Atrial Rate : 057 BPM P-R Int : 186 ms QRS Dur : 094 ms QT Int : 456 ms P-R-T Axes : 065 -02 -59 degrees QTc Int : 443 ms Sinus bradycardia Low voltage QRS T wave abnormality, consider inferior ischemia Abnormal ECG Confirmed by FILEMON BOLIVAR, MERVAT ([id number]), make up editor JAMES LEAL ([id number]) on 10/28/2018 11:53:42 AM Referred By: Jazmyn Velez Confirmed By:MERVAT COLBERT MD
[2018-10-22] MEDS: 0.9% Normal Saline 1,000 ML 100 ML IV (22:37)
[2018-10-22] MEDS: Insulin Lispro 100 UNIT/ML INSULN.PEN SC (22:42)
[2018-10-22 22:46] LABS: Bedside Glucose 232 mg/dL (70-110)
[2018-10-22] MEDS: 0.9% NaCl Peripheral Flush Adult/Peds IV (23:26)
[2018-10-22 23:27] LABS: Magnesium 1.7 mg/dL (1.6-2.6); Thyroid Stim Hormone (TSH) 1.56 uIU/mL (0.358-3.74)
[2018-10-23] VITALS (31 sets, daily range): BP systolic 95–153; BP diastolic 52–101; PULSE 54–122; RESP 14–24; TEMP 36.7–37.1; O2SAT 93–98
[2018-10-23 05:43] LABS: Absolute Lymphocyte Count 1.65 X10^3/uL (0.83-4.51); Absolute Neutrophil Count 3.6 X10^3/uL (2.0-7.7); Basophil# 0.05 X10^3/uL; Basophil% 0.8 % (0-1); Eosinophil# 0.14 X10^3/uL; Eosinophils% 2.3 % (0-5); Hemoglobin 14.7 g/dL (13.0-16.5); Lymphocyte # 1.65 X10^3/ul (4.0); Lymphocyte % 27.1 % (19-41); Mean Corp Hgb Conc 33.4 g/dL (32-36); Mean Corpuscular Hgb 29.8 pg (27.0-32.0); Mean Corpuscular Volume 89.1 fL (80-94); Mean Platelet Vol. 10.7 fl (6.2-12.0); Monocyte# 0.54 X10^3/uL; Monocyte% 8.9 % (0-10); NRBC Flagged by Analyzer 0 % (0-5); Neutrophil # 3.61 X10^3/uL (2.7-7.7); Neutrophil % 59.3 % (47-70); Platelet Count 133 K/mm3 (150-450); RBC Distribution Width CV 13.2 % (11.6-14.6); RBC Distribution Width SD 43.3 fl (35.1-43.9); Red Blood Count 4.94 M/mm3 (4.6-6.2); White Blood Count 6.1 K/mm3 (4.4-11.0)
[2018-10-23 05:48] LABS: Anion Gap 8 (5-15); BUN 21 mg/dL (7-18); BUN/Creat Ratio 17.9 RATIO (10-20); Calcium,Total 8.4 mg/dL (8.5-10.1); Chloride 105 mmol/L (98-107); Cholesterol 163 mg/dL (200); Creatinine, Serum 1.17 mg/dL (0.70-1.30); EST Glomerular Filtration Rate 66 mL/min (>60); Est Glom Filt Rate - Afr Amer 80 mL/min (>60); Glucose 282 mg/dL (74-106); High Density Lipoprotein 41 mg/dL; Potassium 3.5 mmol/L (3.5-5.1); Sodium Level 140 mmol/L (136-145); Triglycerides 264 mg/dL; Very Low Density Lipoprotein 53 mg/dL (5-40)
[2018-10-23] MEDS: Insulin Lispro 100 UNIT/ML INSULN.PEN SC ×4 (06:41→21:33)
[2018-10-23 06:55] LABS: Bedside Glucose 256 mg/dL (70-110)
[2018-10-23] MEDS: Docusate Sodium 100 MG Capsule PO (09:31)
[2018-10-23] MEDS: Chlorthalidone 50 MG Tablet 25 MG PO (09:31)
[2018-10-23] MEDS: Pantoprazole Sodium 20 MG Tablet PO (09:32)
[2018-10-23] MEDS: amLODIPine 5 MG Tablet PO (09:32)
[2018-10-23] MEDS: Psyllium 1 PACKET PO (09:32)
[2018-10-23] MEDS: Enoxaparin 40 MG/0.4 ML Syringe SC (09:32)
[2018-10-23] MEDS: Aspirin E.C. 81 MG Tablet PO (09:34)
[2018-10-23] MEDS: 0.9% Normal Saline 1,000 ML 100 ML IV ×2 (09:35→19:12)
--- NOTE | 2018-10-23 09:43 | PCM.CONS.C ---
Reason for Consult Date of Consultation: 10/23/18 Reason for Consultation: Palpitations History of Present Illness: The patient is a 67 year old M with a history of coronary artery disease status post angioplasty and stenting, hypertension, hyperlipidemia HTN, HLD, GERD, Diabetes mellitus type II, hx spontaneous SDH s/p right louann hole drainage/craniotomy, Hx bradycardia who presents to the [facility] ED on 10/22/18 with history of 3 to 4-week history of ongoing prolonged periods of racing heart with associated dyspnea which he notes would intermittently resolve however on evening prior to ED presentation he did note onset of right shoulder discomfort up into his left neck but this seemed to improve some with application of BenGay however he had recurrent palpitations and racing heart on day of ED presentation with onset of midsternal chest discomfort described as an aching with associated notable dyspnea with no diaphoresis, nausea or emesis associated prompting eventual EMS call with very notable urging for him to present to the hospital for evaluation. From discussion with ED and review of EMS strips the patient had notable arrhythmia, prehospital appearance of VT however on telemetry he was noted to also be sinus with narrow complex and then would transition up to a rate of 160s with an intermittent PVC.. Some of the EKGs demonstrated a wide-complex tachycardia suggestive of atrial flutter with aberrancy though ventricular tachyarrhythmia cannot be completely excluded. He was treated with intravenous metoprolol with settling of the above and after discussion with me intravenous amiodarone was started which she appears to have tolerated well. He has had no dizziness or diaphoresis no near syncope or syncope. Past Medical History Allergies/Adverse Reactions: Allergies lisinopril Adverse Reaction (Intermediate, Verified 10/22/18 18:39) COUGH Home Medications: Ambulatory Orders Medication Instructions Recorded Aspirin E.C. [Ecotrin] 81 mg PO DAILY 12/23/17 Atorvastatin Calcium [Lipitor] 80 mg PO DAILY 12/23/17 Lansoprazole 15 mg PO DAILY 12/23/17 Nitroglycerin (INPATIENT USE) 0.4 mg SUBLINGUAL Q5M PRN #10 tab 12/25/17 [Nitrostat] Docusate Sodium [Colace] 100 mg PO DAILY PRN 05/15/18 Lactobacillus acidophilus capsule 1 cap PO DAILY 06/03/18 chlorthalidone 25 mg tablet 25 mg PO DAILY 06/03/18 Amlodipine Besylate 5 mg PO DAILY 10/22/18 Glipizide 10 mg PO BID 10/22/18 Insulin Aspart [Novolog Flexpen] 0 units SQ BIDCM 10/22/18 Psyllium Husk [Metamucil] 0.52 gm PO DAILY 10/22/18 Past Medical History (Chronic Problems): Chronic Problems (Last Reviewed 06/05/18 @ 14:44 by Felipa Tee) Old myocardial infarction (Chronic) Besides the inferior VA 12/23/17, patient apparently had VA's and stents in 2012 and in 2014 Bradycardia (Chronic) History of louann hole surgery (Chronic 05/05/18) Right louann hole drainage of subdural hematoma, with placement of subdural gravity drain per Dr. Poli Segura @ [facility] Subdural hematoma (Chronic 05/05/18) Stented coronary artery (Chronic 01/22/18) Patient has had multiple stents in 2012 and 2014 but we do not have those records. LAURA (2.5X20 Promus Synergy) to mid RCA 12/23/17; LAURA (2.25 X 12 Promus Synergy) to distal RCA/proximal PDA, as well as POBA to ostial PL Branch with 2.0 X12 balloon 01/22/18 Atherosclerotic heart disease of [place] coronary artery without angina pectoris (Chronic 12/23/17) LAURA (2.5X20 Promus Synergy) to RCA; pt to have staged procedure for PCI of ostial PDA History of acute inferior wall VA (Chronic 12/23/17) HTN (hypertension) (Chronic) HLD (hyperlipidemia) (Chronic) Diabetes mellitus, type II (Chronic) GERD (gastroesophageal reflux disease) (Chronic) Surgical History: - - PCI x 6, appendectomy, eye surgery in youth, louann hole/craniotomy status post spontaneous SDH. Psychiatric History: Depression - *Family History Maternal Family History: Family History (Last Reviewed 06/05/18 @ 14:44 by Felipa Tee) Father Negative for ASCVD Mother Negative for ASCVD History Items: - - Patient denies any marked maternal or paternal family history of heart disease, diabetes, cancer. Paternal Family History: Family History (Last Reviewed 06/05/18 @ 14:44 by Felipa Tee) Father Negative for ASCVD Mother Negative for ASCVD History Items: - - Patient denies any marked maternal or paternal family history of heart disease, diabetes, cancer. Lives: Spouse/ Significant Other Smoking Status: Former smoker Tobacco Use: Non-smoker Alcohol: None Drugs: None Review of Systems - Review of Systems General: Denies: Fever, Night Sweats, Fatigue HEENT: Denies: Vision Change Cardiovascular: Reports: Chest Discomfort, Palpitations. Denies: Shortness of Breath, Orthopnea, PND, Peripheral Edema, Lightheadedness, Dizziness, Near Syncope, Syncope Respiratory: Denies: Cough, Sputum Production, Hemoptysis Gastrointestinal: Denies: Hematemesis, Hematochezia, Melena Genitourinary: Denies: Dysuria, Hematuria Muscoloskeletal: Denies: Myalgias Skin: Denies: Rash Neurological: Denies: Dizziness Psychiatric: Denies: Anxiety Endocrine: Denies: Unexplained Weight Loss Hematologic/ Lymphatic: Denies: Anemia Subjectve: Patient seen and evaluated. Appears to be stable. Objective: Vital Signs Temp Pulse Resp BP Pulse Ox 98.0 F 57 L 21 H 129/75 H 97 10/23/18 09:00 10/23/18 09:00 10/23/18 09:00 10/23/18 09:00 10/23/18 09:00 Oxygen Flow Rate (L/min) 2 Oxygen Delivery Method Room Air Weight: 199 lb 4.766 oz Body Mass Index (BMI) 30.3 Intake and Output for Last 24 Hours 10/21/18 10/22/18 10/23/18 23:59 23:59 23:59 Intake Total 723.79 / 723.79 1196.21 / 1196.21 Output Total 875 / 875 Balance 723.79 / 723.79 321.21 / 321.21 General: Awake, Alert, Oriented x 3 HEENT: PERRL, EOMI, Sclera Non Icteric Neck: Supple, Good ROM, No Lymph Node Enlargement Lungs: Clear to auscultation Cardiovascular: Regular Rhythm, Normal S1, Normal S2, No Murmurs, No Rubs, No Gallops Vascular: No Carotid Bruits, Normal Femoral Pulses, Normal Radial Pulses, Normal Dorsalis Pedal Pulse, Normal Posterior Tibial Pulses Abdomen: Bowel Sounds Present, Soft, Non Tender, No HSM, No Organomegaly Extremities: No Cyanosis, No Clubbing, No edema Musculoskeletal: No Erythema Skin: No Rashes Lymphatic: No Lymph Node Enlargement Neurological: No Focal Motor or Sensory Deficit Psych/Mental Status: Appropriate 10/22/18 18:45: WBC 7.4, RBC 5.35, Hgb 16.2, Hct 47.6, MCV 89.0, MCH 30.3, MCHC 34.0, Plt Count 172, MPV 10.5, Immature Gran % (Auto) 0.800, Neut % (Auto) 67.7, Lymph % (Auto) 22.3, [place] % (Auto) 7.1, Eos % (Auto) 1.3, Baso % (Auto) 0.8, Absolute Neuts (auto) 5.0, Nucleated RBC % 0 10/22/18 18:45: Sodium 135 L, Potassium 3.6, Chloride 103, Carbon Dioxide 27.0, Anion Gap 5, BUN 20 H, Creatinine 1.25, Est GFR (MDRD) Af Amer 74, Est GFR (MDRD) Non-Af 62, BUN/Creatinine Ratio 16.0, Glucose 243 H, Calcium 9.0, Troponin I 0.017 10/22/18 22:50: Magnesium 1.7, Troponin I 0.043 10/23/18 01:35: Troponin I 0.049 H 10/23/18 04:48: WBC 6.1, RBC 4.94, Hgb 14.7, Hct 44.0, MCV 89.1, MCH 29.8, MCHC 33.4, Plt Count 133 L, MPV 10.7, Immature Gran % (Auto) 1.600 H, Neut % (Auto) 59.3, Lymph % (Auto) 27.1, [place] % (Auto) 8.9, Eos % (Auto) 2.3, Baso % (Auto) 0.8, Absolute Neuts (auto) 3.6, Nucleated RBC % 0 10/23/18 04:48: Sodium 140, Potassium 3.5, Chloride 105, Carbon Dioxide 27.0, Anion Gap 8, BUN 21 H, Creatinine 1.17, Est GFR (MDRD) Af Amer 80, Est GFR (MDRD) Non-Af 66, BUN/Creatinine Ratio 17.9, Glucose 282 H, Calcium 8.4 L, Troponin I 0.053 H, Triglycerides 264 H, Cholesterol 163, LDL Cholesterol 69, VLDL Cholesterol 53 H, HDL Cholesterol 41 Rhythm: EKG: ECHO: Stress Test: Cardiac Cath: PCI: CT Surgery: Holter monitor: EPS: PPM: CXR: Chest CT Scan: Assessment/Plan 1. Wide-complex tachycardia Patient presents with symptomatic wide-complex tachycardia with spontaneous cessation. The above appears to be rather suggestive of of an atrial flutter with aberrancy. However VT cannot be completely excluded. An echocardiogram should be performed to assess his left ventricular function. He will remain on the amiodarone for now and I would like to obtain an electrophysiology inputs to the above. 2. CAD, Hx VA: s/p VA inferior wall, PCI LAURA (2.5 x 20 Promus Synergy) to mid RCA 12/23/17; LAURA (2.25 X 12 Promus Synergy) to distal RCA/proximal PDA, as well as POBA to ostial PL Branch with 2.0 X12 balloon 01/22/18. At this time it does not appear that this is an ischemic event. We will continue to aggressively manage his coronary artery disease. He has had multiple coronary artery procedures and his catheterization films were reviewed. He does have mildly elevated troponin which could be secondary to demand ischemia. However restenosis may need to be excluded. It may not be an appropriate to reevaluate his coronary anatomy before any EP studies are undertaken. 3. Hypertension: Continue home regimen including chlorthalidone, Norvasc, PRN hydralazine. 4. Hyperlipidemia: Continue home statin regimen. Thank you for allowing me to participate in the care of your patient. Please don't hesitate to call if any issues arise
[2018-10-23 11:16] LABS: Bedside Glucose 359 mg/dL (70-110)
--- NOTE | 2018-10-23 11:30 | CASEMGMT ---
JOSHUA AWAN assessment: Face to Face with patient for initial transition planning/care coordination assessment. JOSHUA AWAN introduced self and role at [facility], pt voices understanding and consents to assessment at this time. Pt is siting up in bed in no distress at this time. Pt is A/Ox4 at this time and answers all questions appropriately at this time. Care providers, pharmacy, and demographics verified/updated at this time. Pt brought in via EMS for palpitations and HR ranging 80-200's with a wide complex tachycardia, most likely atrial flutter per Dr. Guido. Pt is now in sinus rhythm at this time. Pt scheduled to have heart cath 10/24. PCP: Ivan Specialists: perez Ortiz Pharmacy: [facility] Insurance: [facility] A/B, [facility] [place] Prescription Benefit: [employer] Living Will/HPOA: Pt states has LW/HPOA and they are on file at [facility] at this time. Pt's sig other, Deanne Barger, is HPOA. LNOK: Deanne Barger, sig other Living Arrangements: Pt states lives alone currently but his sig other is moving in during the month of october. Pt lives in mobile home with a ramp in and states no concerns at home at this time. Pt is independent with ADL's. Transportation: Pt states drives self and states no transportation concerns at this time. DME/HHC: Pt states has a shower chair and states no need for any further DME at this time. Pt states no hx of HHC or SNF in the past. Pt states no concerns with going home at time of discharge. Pt states is retired. Pt states does not smoke or drink ETOH. Pt states no further concerns/needs at this time. CM to follow for any further discharge planning/needs. Advised pt to ask for CM if any further questions/concerns/needs arise, voices understanding. Pt Goal: Home Plan: [place] JOSHUA AWAN
--- NOTE | 2018-10-23 14:30 | PCM.PROGNOTE ---
<Radha Garcia - Last Filed: 10/23/18 14:37> Patient Problems: Active and Suspected Problems (Last Reviewed 06/05/18 @ 14:44 by Felipa Tee) Atrial flutter (Acute) Subjective: Patient seen and examined. Denies further palpitations. Denies chest pain, shortness of breath. Telemetry showing sinus rhythm. - Physical Exam General: Alert, Oriented x3, Cooperative HEENT: Atraumatic, PERRLA, EOMI, Normocephalic Neck: Supple, No JVD, Negative Carotid Bruits Lungs: Clear to auscultation, Normal air movement Cardiovascular: Regular rate, Regular Rhythm, Normal S1, Normal S2, No murmurs Abdomen: Bowel Sounds Present, Soft, Non Tender, Non-Distended Extremities: No clubbing, No cyanosis, No edema, Capillary Refill Less than 3 Seconds Skin: No rashes, No breakdown Musculoskeletal: No Tenderness to Palpation of Joints or Extremities Neurological: Cranial nerves II-XII grossly intact, Neuro grossly intact Psych/Mental Status: Normal Affect, Appropriate Vital Signs Temp Pulse Resp BP Pulse Ox 98.0 F 67 17 121/79 H 95 10/23/18 09:00 10/23/18 14:00 10/23/18 14:00 10/23/18 14:00 10/23/18 14:00 Oxygen Flow Rate (L/min) 2 Oxygen Delivery Method Room Air Weight: 199 lb 4.766 oz Body Mass Index (BMI) 30.3 Intake and Output for Last 24 Hours 10/21/18 10/22/18 10/23/18 23:59 23:59 23:59 Intake Total 723.79 / 723.79 1796.21 / 1796.21 Output Total 1550 / 1550 Balance 723.79 / 723.79 246.21 / 246.21 Laboratory Tests Past 24 Hrs 10/22/18 10/22/18 10/22/18 18:45 18:45 22:50 WBC 7.4 RBC 5.35 Hgb 16.2 Hct 47.6 MCV 89.0 MCH 30.3 MCHC 34.0 RDW Std Deviation 42.1 RDW Coeff of Kera 13.0 Plt Count 172 MPV 10.5 Immature Gran % (Auto) 0.800 Neut % (Auto) 67.7 Lymph % (Auto) 22.3 [place] % (Auto) 7.1 Eos % (Auto) 1.3 Baso % (Auto) 0.8 Absolute Neuts (auto) 5.0 Absolute Lymphs (auto) 1.66 Nucleated RBC % 0 Sodium 135 L Potassium 3.6 Chloride 103 Carbon Dioxide 27.0 Anion Gap 5 BUN 20 H Creatinine 1.25 Estim Creat Clear Calc 57.00 Est GFR (MDRD) Af Amer 74 Est GFR (MDRD) Non-Af 62 BUN/Creatinine Ratio 16.0 Glucose 243 H Calcium 9.0 Magnesium 1.7 Troponin I 0.017 0.043 Triglycerides Cholesterol LDL Cholesterol VLDL Cholesterol HDL Cholesterol TSH 1.56 10/23/18 10/23/18 10/23/18 01:35 04:48 04:48 WBC 6.1 RBC 4.94 Hgb 14.7 Hct 44.0 MCV 89.1 MCH 29.8 MCHC 33.4 RDW Std Deviation 43.3 RDW Coeff of Kera 13.2 Plt Count 133 L MPV 10.7 Immature Gran % (Auto) 1.600 H Neut % (Auto) 59.3 Lymph % (Auto) 27.1 [place] % (Auto) 8.9 Eos % (Auto) 2.3 Baso % (Auto) 0.8 Absolute Neuts (auto) 3.6 Absolute Lymphs (auto) 1.65 Nucleated RBC % 0 Sodium 140 Potassium 3.5 Chloride 105 Carbon Dioxide 27.0 Anion Gap 8 BUN 21 H Creatinine 1.17 Estim Creat Clear Calc 60.90 Est GFR (MDRD) Af Amer 80 Est GFR (MDRD) Non-Af 66 BUN/Creatinine Ratio 17.9 Glucose 282 H Calcium 8.4 L Magnesium Troponin I 0.049 H 0.053 H Triglycerides 264 H Cholesterol 163 LDL Cholesterol 69 VLDL Cholesterol 53 H HDL Cholesterol 41 TSH POC Glucose 10/23/18 10/23/18 10/22/18 11:04 06:39 22:41 POC Glucose 359 H 256 H 232 H Medical Necessity - Tobacco Use Smoking Status: Former smoker Tobacco Use: Non-smoker Assessment/Plan All Active Problems (Last Reviewed 06/05/18 @ 14:44 by Felipa Tee) Atrial flutter (Acute) STEMI (ST elevation myocardial infarction) (Resolved) 1. New onset atrial flutter, wide-complex tachycardia-cardiology following. Patient placed on IV amiodarone drip and is now appears to be in normal sinus rhythm. Echocardiogram demonstrates an EF of 50%, mild segmental systolic dysfunction, stage I diastolic dysfunction. Cardiology recommending EP consult. Monitor telemetry. 2. History of recent spontaneous right-sided SDH-treated at [facility]. Had been on aspirin and Plavix following PCI, now on aspirin only. 3. CAD with history of PCI-continue aspirin, statin. Follows with Dr. Sena. 4. Type 2 diabetes mellitus-home oral regimen on hold. Continue Accu-Cheks with sliding scale insulin. 5. Hypertension-continue home chlorthalidone, Norvasc regimen. 6. Hyperlipidemia-continue statin regimen. 7. GERD-continue PPI. DVT prophylaxis-Lovenox, SCDs This patient was seen by BRYAN White under the supervision of Dr. Kraft. <Torey Kraft - Last Filed: 10/23/18 15:05> Subjective: Seen and examined. Patient palpitation has resolved. Patient had palpitation which started about 1 PM yesterday afternoon and resolved after he was admitted on PCU. patient has been having palpitation associated with mild shortness of breath for about 3 to 4 weeks but yesterday one was the worst and gave rise to mild chest pain. In ED, was found to have wide-complex tachycardia and started on amiodarone drip. EMS strips shows wide-complex tachycardia, most probably atrial flutter with aberrancy. Software Support Specialist is consulted. Patient had multiple cath and PCI with stents. The patient on amiodarone drip. - Physical Exam General: Alert, Oriented x3, Cooperative HEENT: Atraumatic, PERRLA, EOMI, Normocephalic, - - Scar of borehole/craniectomy surgery for subdural hematoma Neck: Supple, No JVD, Negative Carotid Bruits Lungs: Clear to auscultation, Normal air movement, No rhonchi, No wheeze, No rales Cardiovascular: Regular rate, Regular Rhythm, Normal S1, Normal S2, No murmurs, - - Telemetry shows sinus rhythm at 62 bpm with PVCs. Abdomen: Bowel Sounds Present, Soft, Non Tender Extremities: No edema, Capillary Refill Less than 3 Seconds Skin: No rashes, No breakdown Musculoskeletal: No Tenderness to Palpation of Joints or Extremities, Arthritic Changes Neurological: Cranial nerves II-XII grossly intact, Deep Tendon Reflexes 2+/4 and Symmetrical, Neuro grossly intact, Motor Exam 5/5 strength throughout Psych/Mental Status: Normal Affect, Appropriate Vital Signs Temp Pulse Resp BP Pulse Ox 98.0 F 67 17 121/79 H 95 10/23/18 09:00 10/23/18 14:00 10/23/18 14:00 10/23/18 14:00 10/23/18 14:00 Oxygen Flow Rate (L/min) 2 Oxygen Delivery Method Room Air Weight: 199 lb 4.766 oz Body Mass Index (BMI) 30.3 Intake and Output for Last 24 Hours 10/21/18 10/22/18 10/23/18 23:59 23:59 23:59 Intake Total 723.79 / 723.79 1796.21 / 1796.21 Output Total 1550 / 1550 Balance 723.79 / 723.79 246.21 / 246.21 Laboratory Tests Past 24 Hrs 10/22/18 10/22/18 10/22/18 18:45 18:45 22:50 WBC 7.4 RBC 5.35 Hgb 16.2 Hct 47.6 MCV 89.0 MCH 30.3 MCHC 34.0 RDW Std Deviation 42.1 RDW Coeff of Kera 13.0 Plt Count 172 MPV 10.5 Immature Gran % (Auto) 0.800 Neut % (Auto) 67.7 Lymph % (Auto) 22.3 [place] % (Auto) 7.1 Eos % (Auto) 1.3 Baso % (Auto) 0.8 Absolute Neuts (auto) 5.0 Absolute Lymphs (auto) 1.66 Nucleated RBC % 0 Sodium 135 L Potassium 3.6 Chloride 103 Carbon Dioxide 27.0 Anion Gap 5 BUN 20 H Creatinine 1.25 Estim Creat Clear Calc 57.00 Est GFR (MDRD) Af Amer 74 Est GFR (MDRD) Non-Af 62 BUN/Creatinine Ratio 16.0 Glucose 243 H Calcium 9.0 Magnesium 1.7 Troponin I 0.017 0.043 Triglycerides Cholesterol LDL Cholesterol VLDL Cholesterol HDL Cholesterol TSH 1.56 10/23/18 10/23/18 10/23/18 01:35 04:48 04:48 WBC 6.1 RBC 4.94 Hgb 14.7 Hct 44.0 MCV 89.1 MCH 29.8 MCHC 33.4 RDW Std Deviation 43.3 RDW Coeff of Kera 13.2 Plt Count 133 L MPV 10.7 Immature Gran % (Auto) 1.600 H Neut % (Auto) 59.3 Lymph % (Auto) 27.1 [place] % (Auto) 8.9 Eos % (Auto) 2.3 Baso % (Auto) 0.8 Absolute Neuts (auto) 3.6 Absolute Lymphs (auto) 1.65 Nucleated RBC % 0 Sodium 140 Potassium 3.5 Chloride 105 Carbon Dioxide 27.0 Anion Gap 8 BUN 21 H Creatinine 1.17 Estim Creat Clear Calc 60.90 Est GFR (MDRD) Af Amer 80 Est GFR (MDRD) Non-Af 66 BUN/Creatinine Ratio 17.9 Glucose 282 H Calcium 8.4 L Magnesium Troponin I 0.049 H 0.053 H Triglycerides 264 H Cholesterol 163 LDL Cholesterol 69 VLDL Cholesterol 53 H HDL Cholesterol 41 TSH POC Glucose 10/23/18 10/23/18 10/22/18 11:04 06:39 22:41 POC Glucose 359 H 256 H 232 H Assessment/Plan This patient was seen in conjunction with Radha GILMORE. I have independently interviewed and examined the patient and reviewed pertinent history, examination findings, laboratory and plan of management. I have reviewed the note and agree with the documented findings with the few additional points. In brief, patient is admitted for palpitation with associated shortness of breath and midsternal chest discomfort/pain was found to be wide-complex tachycardia. It seems patient had new onset atrial flutter with aberrancy although VT cannot be ruled out. Software Support Specialist has been consulted. Software Support Specialist recommended further EP consult. On amiodarone drip. Echo of 10/23/2017 reported as EF 50% with mild segmental systolic dysfunction and stage I diastolic dysfunction. No significant valvular abnormality. Normal left and right atria. Patient had multiple PCI, states about 7 stents. Patient had last cath in December 2017 for which balloon angioplasty of ostial posterolateral branch 85% stenosis. Mid RCA in-stent 90% restenosis. Mildly elevated troponins probably secondary to demand ischemia. Patient had subdural hematoma in April 2017 in [facility] on DAPT, aspirin and Plavix. Since then he is only on aspirin. Home medications reconciliation done. I have discussed my assessment with Radha GILMORE and orders have been reviewed. Code Visit Inpatient E&M: 32945 Subs Hosp L3
[2018-10-23 16:36] LABS: Bedside Glucose 287 mg/dL (70-110)
[2018-10-23] MEDS: HYDROcodone Bitartrate/Apap 5/325 Tablet PO (18:05)
[2018-10-23] MEDS: Atorvastatin Calcium 80 MG Tablet PO (21:28)
[2018-10-23 22:35] LABS: Bedside Glucose 395 mg/dL (70-110)
[2018-10-24] VITALS (24 sets, daily range): BP systolic 106–141; BP diastolic 63–95; PULSE 59–103; RESP 12–23; TEMP 36.6–37.7; O2SAT 93–100
[2018-10-24] MEDS: 0.9% Normal Saline 1,000 ML 100 ML IV (04:19)
[2018-10-24] MEDS: amLODIPine 5 MG Tablet PO (05:50)
[2018-10-24] MEDS: Aspirin E.C. 81 MG Tablet PO (05:50)
[2018-10-24] MEDS: 0.9% NaCl Peripheral Flush Adult/Peds IV (06:03)
[2018-10-24 06:04] LABS: Prothrombin Time (Protime)PT. 12.5 SECONDS (11.7-14.9)
[2018-10-24 06:05] LABS: Partial Thromboplast Time 29.1 Seconds (24.1-36.2)
[2018-10-24 06:10] LABS: Absolute Lymphocyte Count 0.93 X10^3/uL (0.83-4.51); Absolute Neutrophil Count 6.7 X10^3/uL (2.0-7.7); Basophil# 0.05 X10^3/uL; Basophil% 0.6 % (0-1); Eosinophil# 0.08 X10^3/uL; Eosinophils% 0.9 % (0-5); Hematocrit 46.2 % (40-54); Hemoglobin 15.7 g/dL (13.0-16.5); Lymphocyte # 0.93 X10^3/ul (4.0); Lymphocyte % 10.9 % (19-41); Mean Corpuscular Hgb 30.3 pg (27.0-32.0); Mean Platelet Vol. 10.8 fl (6.2-12.0); Monocyte# 0.68 X10^3/uL; Monocyte% 7.9 % (0-10); NRBC Flagged by Analyzer 0 % (0-5); Neutrophil # 6.74 X10^3/uL (2.7-7.7); Neutrophil % 78.6 % (47-70); Platelet Count 125 K/mm3 (150-450); RBC Distribution Width CV 13.1 % (11.6-14.6); Red Blood Count 5.19 M/mm3 (4.6-6.2); White Blood Count 8.6 K/mm3 (4.4-11.0)
[2018-10-24 06:33] LABS: Anion Gap 7 (5-15); BUN 19 mg/dL (7-18); BUN/Creat Ratio 15.8 RATIO (10-20); Calcium,Total 8.6 mg/dL (8.5-10.1); Chloride 105 mmol/L (98-107); EST Glomerular Filtration Rate 64 mL/min (>60); Est Glom Filt Rate - Afr Amer 78 mL/min (>60); Estimated Creatinine Clearance 59.38 ml/min; Glucose 241 mg/dL (74-106); Potassium 3.8 mmol/L (3.5-5.1); Sodium Level 137 mmol/L (136-145)
[2018-10-24 06:40] LABS: Bedside Glucose 245 mg/dL (70-110)
[2018-10-24] MEDS: DiphenhydrAMINE 25 MG Capsule 50 MG PO (07:03)
--- NOTE | 2018-10-24 07:08 | NURSING ---
Report called to Saad LEWIS in label printing machinist. Instructed to bring pt. in 5 minutes.
--- NOTE | 2018-10-24 08:41 | CDU_ITS ---
Reason For Study: PRE OP EXAM Rt. Velocities/BP Lt. Velocities/BP Prox CCA 77.7/9.9 cm/sec. Prox CCA 89.2/13.0 cm/sec. Mid CCA 59.4/11.2 cm/sec. Mid CCA 85.5/16.7 cm/sec. Dist CCA 58.1/11.2 cm/sec. Dist CCA 68.3/17.9 cm/sec. Prox ICA 54.6/15.5 cm/sec. Prox ICA 71.1/17.1 cm/sec. Mid ICA 84.6/22.0 cm/sec. Mid ICA 72.3/20.8 cm/sec. Dist ICA 70.3/24.6 cm/sec. Dist ICA 78.5/22.0 cm/sec. Rt. ICA/CCA = 84.6/77.7=1.1. Lt. ICA/CCA = 78.5/85.5=0.9. Prox ECA 92.0/6.0 cm/sec. Prox ECA 131.4/15.1 cm/sec. Rt. Vert. 61.4/13.1 cm/sec. Lt. Vert. 68.6/18.3 cm/sec. Right Extracranial There is intimal thickening but no significant atherosclerotic plaque noted in the right common carotid artery. Structure noted in the mid CCA area measuring 1.8cm 2.11cm. There is intimal thickening but no significant atherosclerotic plaque noted in the right internal carotid artery. There is no significant atherosclerotic plaque noted in the right external carotid artery. Antegrade flow is noted in the right vertebral artery. Left Extracranial There is homogeneous, smooth atherosclerotic plaque noted in the left common carotid artery. Structure noted in mid CCA area measuring 1.89 x 1.96 cm. There is heterogeneous, irregular atherosclerotic plaque noted in the left internal carotid artery. There is no significant atherosclerotic plaque noted in the left external carotid artery. Antegrade flow is noted in the left vertebral artery. There is heterogeneous, irregular atherosclerotic plaque noted in the left bulb. Procedure Carotid Duplex [id number]. The exam was diagnostic. Exam performed portable in patient room. Interpretation Summary No significant atherosclerotic plaque or stenosis noted in the right internal carotid artery. Mild (<50%) stenosis left extracranial internal carotid. Flow within the vertebral arteries is antegrade bilaterally. Heterogeneous, irregular, atherosclerotic plaque is noted in the left carotid bulb, which does not appear to be hemodynamically significant. A solid structure is noted in the right and left thyroid lobe, with dimensions as documented above. Clinical correlation is advised. Ordering Physician: Tyler Sena Referring Physician: Miguel Love Performed By: Kristina Rose RDCS, RVT
--- NOTE | 2018-10-24 08:52 | CL.D_ITS ---
Patient Name: DOMINGA TREJO Study Date: 10/24/2018 Performing: Tyler Sena MD Ht: 68.11 inches 173 cm : 1950 Wt: 198.42 lbs 90 kg Age: 67 Gender: male BSA: 2.04 PROCEDURE(S) PERFORMED PC79-NLE/COR/LV CLINICAL PROFILE AND INDICATIONS Patient presents with NSTEMI for urgent cardiac cath Indications: New Onset Angina <= 2 months, Stable Known CAD, Cardiac Arrythmia, LV Dysfunction Heart Failure: NYHA Class: 2, Newly Diagnosed: No, Heart Failure Type: Systolic Stress/Imaging Stress/Image Study Performed: No Angina Classification Anginal Classification w/in 2 Weeks: CCS II CAD Presentations: Unstable angina. Non-STEMI. 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 I would recommend CABG to DIAG, LAD, and PDA +/- bypass to OM#1. Pt wishes to go to [facility] where he had his sub dural hematoma drained in 04/2017. Will make arrangements to be seen as outpatient with Dr Mann or Dr Cardozo. Start coreg, losartan and switch to po amiodarone for aflutter with aberrancy. DESCRIPTION OF PROCEDURE The patient arrived to the procedure lab. The risks and benefits of the procedure as well as a full d escription of our services here and current unavailability of surgical backup were fully explained to the patient and/or their significant other prior to the catheterization. The Timeout was completed, verifying the correct patient and procedure. The patient's procedural site was prepped and draped in the usual fashion. Local anesthetic was given subcutaneously to right groin region with Lidocaine 2%. Using a modified Seldinger technique, arterial access was obtained via the right femoral artery, a 4 Fr sheath was inserted Left Coronary Artery selective angiography was performed in multiple views us ing a 4 Fr. JL5 catheter. Right Coronary Artery selective angiography was then performed in multiple views using a 4 Fr. 3DRC catheter. Left Ventriculography was performed in HUERTA projection using a 4 Fr . Pigtail catheter. LV to AO pullback pressures were then recorded.The arterial sheath was pulled and manual compression applied until hemostasis is achieved. CORONARY ANGIOGRAPHY DOMINANCE: Right Dominant LEFT HEART ASSESSMENT Left Ventricular Ejection Fraction: by LV Gram 40 % Inferior Basal Hypokinesis - Severe Depressed Left Ventricular systolic function LVEDP: 17 mmHg LEFT MAIN: Angiographically normal LEFT ANTERIOR DESCENDING ARTERY: PROX LAD: Previously placed stent has an instent 20 % restenosis MID LAD: 75 % Stenosis DIAGONAL 1: Ostial - 85 % Stenosis CIRCUMFLEX ARTERY: OSTIAL CIRC: Moderate luminal irregularities up to 50% MID CIRC: Mild luminal irregularities less than 30% DISTAL CIRC: is occluded OM 1: Proximal - Previously placed stent has an instent 50 % restenosis RIGHT CORONARY ARTERY: MID RCA: is occluded COLLATERAL FLOW: Collateral flow from Left to Right COMPLICATIONS No Complications PROCEDURE MEDICATIONS Versed 1 mg IV Oxygen: 2 L/min via nasal cannula SUMMARY OF HEMODYNAMIC DATA Time AIR REST ECG 07:49:52 AO 140/75 (98) SA 08:18:21 LV 123/-12, 15 08:24:48 LV 127/-12, 17 08:24:54 LVp 133/67, 71 08:25:17 AOp 134/68 (93) 08:25:22 Signed By Tyler Sena MD On 10/24/2018 08:52:06 Tyler Sena MD
[2018-10-24] MEDS: Chlorthalidone 50 MG Tablet 25 MG PO (10:24)
[2018-10-24] MEDS: Pantoprazole Sodium 20 MG Tablet PO (10:24)
[2018-10-24] MEDS: Docusate Sodium 100 MG Capsule PO (10:24)
[2018-10-24] MEDS: Carvedilol 3.125 MG TABLET PO ×2 (10:25→21:29)
[2018-10-24] MEDS: Amiodarone 200 MG Tablet 400 MG PO ×2 (10:25→21:29)
[2018-10-24] MEDS: Losartan Potassium 25 MG Tablet PO (10:25)
[2018-10-24 11:56] LABS: Bedside Glucose 220 mg/dL (70-110)
[2018-10-24] MEDS: Insulin Lispro 100 UNIT/ML INSULN.PEN SC ×3 (12:05→21:29)
--- NOTE | 2018-10-24 13:53 | PN_ITS ---
<Radha Garcia - Last Filed: 10/24/18 13:59> Patient Problems: Active and Suspected Problems (Last Reviewed 06/05/18 @ 14:44 by Felipa Tee) Atrial flutter (Acute) Subjective: Patient seen and examined. Underwent cardiac catheterization this a.m. and recommended referral for CABG by cardiology. Plan is to continue medical management and outpatient follow-up with cardiothoracic surgery. Patient denies chest pain, shortness of breath or palpitations. - Physical Exam General: Alert, Oriented x3, Cooperative HEENT: Atraumatic, PERRLA, EOMI, Normocephalic Neck: Supple, No JVD, Negative Carotid Bruits Lungs: Clear to auscultation, Normal air movement Cardiovascular: - - Atrial fibrillation, rate controlled. Intermittent wide- complex tachycardia. Abdomen: Bowel Sounds Present, Soft, Non Tender, Non-Distended Extremities: No clubbing, No cyanosis, No edema, Capillary Refill Less than 3 Seconds Skin: No rashes, No breakdown Musculoskeletal: No Tenderness to Palpation of Joints or Extremities Neurological: Cranial nerves II-XII grossly intact, Neuro grossly intact Psych/Mental Status: Normal Affect, Appropriate Vital Signs Temp Pulse Resp BP Pulse Ox 98.1 F 103 H 16 128/89 H 94 10/24/18 10:00 10/24/18 12:12 10/24/18 12:12 10/24/18 12:12 10/24/18 12:12 Oxygen Flow Rate (L/min) 2 Oxygen Delivery Method Room Air Weight: 199 lb 4.766 oz Body Mass Index (BMI) 30.3 Intake and Output for Last 24 Hours 10/22/18 10/23/18 10/24/18 23:59 23:59 23:59 Intake Total 723.79 / 723.79 4259.23 / 4275.93 1983.92 / 1982.92 Output Total 3410 / 3410 2100 / 2100 Balance 723.79 / 723.79 849.23 / 865.93 -116.08 / -116.08 Laboratory Tests Past 24 Hrs 10/24/18 10/24/18 10/24/18 05:25 05:25 05:25 WBC 8.6 RBC 5.19 Hgb 15.7 Hct 46.2 MCV 89.0 MCH 30.3 MCHC 34.0 RDW Std Deviation 43.0 RDW Coeff of Kera 13.1 Plt Count 125 L MPV 10.8 Immature Gran % (Auto) 1.100 H Neut % (Auto) 78.6 H Lymph % (Auto) 10.9 L [place] % (Auto) 7.9 Eos % (Auto) 0.9 Baso % (Auto) 0.6 Absolute Neuts (auto) 6.7 Absolute Lymphs (auto) 0.93 Nucleated RBC % 0 PT 12.5 INR 1.0 APTT 29.1 Sodium 137 Potassium 3.8 Chloride 105 Carbon Dioxide 25.0 Anion Gap 7 BUN 19 H Creatinine 1.20 Estim Creat Clear Calc 59.38 Est GFR (MDRD) Af Amer 78 Est GFR (MDRD) Non-Af 64 BUN/Creatinine Ratio 15.8 Glucose 241 H Calcium 8.6 POC Glucose 10/24/18 10/24/18 10/23/18 11:52 06:31 21:31 POC Glucose 220 H 245 H 395 H 10/23/18 16:30 POC Glucose 287 H Medical Necessity - Tobacco Use Smoking Status: Former smoker Tobacco Use: Non-smoker Assessment/Plan All Active Problems (Last Reviewed 06/05/18 @ 14:44 by Felipa Tee) Atrial flutter (Acute) STEMI (ST elevation myocardial infarction) (Resolved) 1. New onset atrial flutter, wide-complex tachycardia-cardiology following. Echocardiogram demonstrates an EF of 50%, mild segmental systolic dysfunction, stage I diastolic dysfunction. Transition from IV amiodarone to oral today. Rate controlled, currently atrial fibrillation with intermittent wide-complex tachycardia. Patient underwent cardiac catheterization this morning and was recommended to undergo coronary bypass. We will continue to treat medically with plans for outpatient arrangements with cardiothoracic surgery. Continue carvedilol, losartan and amiodarone. 2. History of recent spontaneous right-sided SDH-treated at [facility]. Had been on aspirin and Plavix following PCI, now on aspirin only. 3. CAD with history of PCI-continue aspirin, statin. Follows with Dr. Sena. Cardiac catheterization as noted above. 4. Type 2 diabetes mellitus-home oral regimen on hold. Continue Accu-Cheks with sliding scale insulin. 5. Hypertension-continue home chlorthalidone, Norvasc regimen. Additionally started on carvedilol and losartan per cardiology. 6. Hyperlipidemia-continue statin regimen. 7. GERD-continue PPI. DVT prophylaxis-Lovenox, SCDs This patient was seen by BRYAN White under the supervision of Dr. Kraft. <Torey Kraft - Last Filed: 10/24/18 14:06> Subjective: Seen and examined. Patient had cardiac cath this morning. Dr. Sena called me to inform cath findings. Patient does not have chest pain, shortness of breath or palpitation. Heart rate is controlled, sinus rhythm on amiodarone. Objective: General: Alert, Oriented x3, Cooperative HEENT: Atraumatic, PERRLA, EOMI, Normocephalic, Scar of burrhole/craniotomy surgery for subdural hematoma Neck: Supple, No JVD, Negative Carotid Bruits Lungs: Clear to auscultation, Normal air movement, No rhonchi, No wheeze, No rales Cardiovascular: Regular rate, Regular Rhythm, Normal S1, Normal S2, No murmurs, Telemetry shows sinus rhythm with PVCs. Abdomen: Bowel Sounds Present, Soft, Non Tender Extremities: No edema, Capillary Refill Less than 3 Seconds Skin: No rashes, No breakdown Musculoskeletal: No Tenderness to Palpation of Joints or Extremities, Arthritic Changes Neurological: Cranial nerves II-XII grossly intact, Deep Tendon Reflexes 2+/4 and Symmetrical, Neuro grossly intact, Motor Exam 5/5 strength throughout Psych/Mental Status: Normal Affect, Appropriate - Physical Exam Vital Signs Temp Pulse Resp BP Pulse Ox 98.1 F 103 H 16 128/89 H 94 10/24/18 10:00 10/24/18 12:12 10/24/18 12:12 10/24/18 12:12 10/24/18 12:12 Oxygen Flow Rate (L/min) 2 Oxygen Delivery Method Room Air Weight: 199 lb 4.766 oz Body Mass Index (BMI) 30.3 Intake and Output for Last 24 Hours 10/22/18 10/23/18 10/24/18 23:59 23:59 23:59 Intake Total 723.79 / 723.79 4259.23 / 4275.93 1982.92 / 1982. Output Total 3410 / 3410 2100 / 2100 Balance 723.79 / 723.79 849.23 / 865.93 -116.08 / -116.08 Laboratory Tests Past 24 Hrs 10/24/18 10/24/18 10/24/18 05:25 05:25 05:25 WBC 8.6 RBC 5.19 Hgb 15.7 Hct 46.2 MCV 89.0 MCH 30.3 MCHC 34.0 RDW Std Deviation 43.0 RDW Coeff of Kera 13.1 Plt Count 125 L MPV 10.8 Immature Gran % (Auto) 1.100 H Neut % (Auto) 78.6 H Lymph % (Auto) 10.9 L [place] % (Auto) 7.9 Eos % (Auto) 0.9 Baso % (Auto) 0.6 Absolute Neuts (auto) 6.7 Absolute Lymphs (auto) 0.93 Nucleated RBC % 0 PT 12.5 INR 1.0 APTT 29.1 Sodium 137 Potassium 3.8 Chloride 105 Carbon Dioxide 25.0 Anion Gap 7 BUN 19 H Creatinine 1.20 Estim Creat Clear Calc 59.38 Est GFR (MDRD) Af Amer 78 Est GFR (MDRD) Non-Af 64 BUN/Creatinine Ratio 15.8 Glucose 241 H Calcium 8.6 POC Glucose 10/24/18 10/24/18 10/23/18 11:52 06:31 21:31 POC Glucose 220 H 245 H 395 H 10/23/18 16:30 POC Glucose 287 H Assessment/Plan This patient was seen in conjunction with ASTRONAUTICAL ENGINEER, Radha. I have independently interviewed and examined the patient and reviewed pertinent history, examination findings, laboratory and plan of management. I have reviewed the note and agree with the documented findings with the few additional points. In brief, patient is admitted for palpitation with associated shortness of breath and midsternal chest discomfort/pain was found to be wide-complex tachycardia. It seems patient had new onset atrial flutter with aberrancy although VT cannot be ruled out. Fur Blender has been consulted. Fur Blender recommended further EP consult. On amiodarone drip which is going to be switched to amiodarone 400 mg twice daily for 5 days and then 200 mg daily. Echo of 10/23/2017 reported as EF 50% with mild segmental systolic dysfunction and stage I diastolic dysfunction. No significant valvular abnormality. Normal left and right atria. Patient had multiple PCI, states about 7 stents. Patient had last cath in December 2017 for which balloon angioplasty of ostial posterolateral branch 85% stenosis. Mid RCA in-stent 90% restenosis. Mildly elevated troponins probably secondary to demand ischemia. Patient had cardiac cath on 10/24/2018. Reported as EF 40%. Severe inferior basal hypokinesis, depressed LV systolic function. Mid LAD 75% stenosis. Ostial diagonal 1 85% stenosis. Mid RCA is occluded. Collateral flow from left to right. In fact patient is surviving on left side of circulation, LAD with collateral flow to right side of the heart with RCA occluded. CABG is recommended. Fur Blender is going [facility] This was communicated to the patient and his near the bedside. 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 Patient had subdural hematoma in April 2017 in [facility] on DAPT, aspirin and Plavix. Since then he is only on aspirin. Home medications reconciliation done. I have discussed my assessment with Radha GILMORE and orders have been reviewed. Code Visit Inpatient E&M: [id number] [facility] L3
[2018-10-24 16:45] LABS: Bedside Glucose 301 mg/dL (70-110)
[2018-10-24] MEDS: Atorvastatin Calcium 80 MG Tablet PO (21:29)
[2018-10-24 22:51] LABS: Bedside Glucose 251 mg/dL (70-110)
[2018-10-25 02:59] VITALS: PULSE 69
[2018-10-25 03:00] VITALS: BP 108/72; PULSE 75; RESP 16; TEMP 37.1; O2SAT 96
[2018-10-25] MEDS: Insulin Lispro 100 UNIT/ML INSULN.PEN SC ×2 (06:40→11:30)
[2018-10-25 06:50] LABS: Bedside Glucose 198 mg/dL (70-110)
[2018-10-25 07:00] VITALS: PULSE 108
[2018-10-25 09:00] VITALS: BP 133/73; PULSE 75; RESP 16; TEMP 37; O2SAT 98
[2018-10-25] MEDS: Amiodarone 200 MG Tablet 400 MG PO (09:46)
[2018-10-25] MEDS: Carvedilol 3.125 MG TABLET PO (09:46)
[2018-10-25] MEDS: Aspirin E.C. 81 MG Tablet PO (09:47)
[2018-10-25] MEDS: Docusate Sodium 100 MG Capsule PO (09:47)
[2018-10-25] MEDS: Losartan Potassium 25 MG Tablet PO (09:47)
[2018-10-25] MEDS: Chlorthalidone 50 MG Tablet 25 MG PO (09:48)
[2018-10-25] MEDS: Psyllium 1 PACKET PO (09:49)
[2018-10-25] MEDS: Pantoprazole Sodium 20 MG Tablet PO (09:49)
[2018-10-25] MEDS: amLODIPine 5 MG Tablet PO (09:49)
--- NOTE | 2018-10-25 10:49 | PCM.DC ---
- Discharge Diagnoses Current Active Problems: Current Active and Chronic Problems (Last Reviewed 06/05/18 @ 14:44 by Felipa Tee) History of left heart catheterization (Chronic 10/24/18) Surgery consult for coronary revascularization Pt is poor candidate for PCI to LAD or DIRECTOR OF CATH LAB to RCA given recent sub dural hematoma with contra-indications to DAPT, as well as it would be a very difficult DIRECTOR OF CATH LAB PCI given difficulty with previous PCI to RCA in 12/2017. I would recommend CABG to DIAG, LAD, and PDA +/- bypass to OM#1. Pt wishes to go to [facility] where he had his sub dural hematoma drained in 04/2017. Will make arrangements to be seen as outpatient with Dr Mann or Dr Cardozo. Per [facility] @ [facility] 10/24/18 Atrial flutter (Acute) You will use the following diet at home:: Cardiac Discharge Activity: Return to Normal Activity Call your doctor if you observe: Shortness of breath, Dizziness, Chest pain, Increased palpitations (irregular heartbeat) Additional Instructions: Dr. Sena is making arrangements at [facility] with Dr. Mann or Dr. Cardozo for CABG. Call Dr. Sena office Saturday to follow up with this. You carotid ultrasound results are pending at discharge. You can also ask Dr. Sena's office for these results when you call on Saturday. You will take amiodarone 400 mg twice daily through 10/28/2018. Then take amiodarone 200 mg daily. Allergies/Adverse Reactions: Allergies lisinopril Adverse Reaction (Intermediate, Verified 10/22/18 18:39) COUGH Medications to take at Discharge Aspirin E.C. [Ecotrin] 81 mg PO DAILY 12/23/17 Atorvastatin Calcium [Lipitor] 80 mg PO DAILY 12/23/17 Lansoprazole 15 mg PO DAILY 12/23/17 Nitroglycerin (INPATIENT USE) [Nitrostat] 0.4 mg SUBLINGUAL Q5M PRN #10 tab 12/25/17 Docusate Sodium [Colace] 100 mg PO DAILY PRN 05/15/18 Lactobacillus acidophilus capsule 1 cap PO DAILY 06/03/18 chlorthalidone 25 mg tablet 25 mg PO DAILY 06/03/18 Amlodipine Besylate 5 mg PO DAILY 10/22/18 Glipizide 10 mg PO BID 10/22/18 Insulin Aspart [Novolog Flexpen] 0 units SQ BIDCM 10/22/18 Psyllium Husk [Metamucil] 0.52 gm PO DAILY 10/22/18 Amiodarone HCl [Cordarone] 200 mg PO DAILY #60 tab 10/25/18 Carvedilol [Coreg (Beta Kaz)] 3.125 mg PO BID #120 tab 10/25/18 Losartan Potassium [Cozaar] 25 mg PO DAILY #60 tab 10/25/18 The following prescriptions were given: Amiodarone HCl [Cordarone] 200 mg PO DAILY #60 tab Transmission Status: Pending to [facility], Carvedilol [Coreg (Beta Kaz)] 3.125 mg PO BID #120 tab Transmission Status: Pending to [facility], Losartan Potassium [Cozaar] 25 mg PO DAILY #60 tab Transmission Status: Pending to [facility], Primary Care Physician: Miguel Love MD [Primary Care Provider] - Please follow up with your Primary Care Physician in: 1 Week Test Results: Test results from this visit will be discussed in further detail at your follow-up appointment, if applicable. Please Follow Up With: Tyler Sena MD When: Call Saturday to follow up on [facility] outpatient arrangements Proposed Discharge Date: 10/25/18
--- NOTE | 2018-10-25 10:54 | PCM.DC.SUM ---
<Radha Garcia - Last Filed: 10/25/18 11:03> Discharge Date and Diagnosis Date of Admission: 10/22/18 Date of Discharge: 10/25/18 - Primary Discharge Diagnosis Active and Suspected Problems (Last Reviewed 06/05/18 @ 14:44 by Felipa Tee) 1. New onset atrial flutter with aberrancy, wide-complex tachycardia 2. History of recent spontaneous right-sided SDH 3. CAD with history of PCI, multivessel CAD-outpatient follow up for CABG 4. Type 2 diabetes mellitus 5. Hypertension 6. Hyperlipidemia 7. GERD - Secondary Discharge Diagnosis Chronic Problems (Last Reviewed 06/05/18 @ 14:44 by Felipa Tee) History of left heart catheterization (Chronic 10/24/18) Surgery consult for coronary revascularization Pt is poor candidate for PCI to LAD or TRAVEL RN OR to RCA given recent sub dural hematoma with contra-indications to DAPT, as well as it would be a very difficult TRAVEL RN OR PCI given difficulty with previous PCI to RCA in 12/2017. I would recommend CABG to DIAG, LAD, and PDA +/- bypass to OM#1. Pt wishes to go to [facility] where he had his sub dural hematoma drained in 04/2017. Will make arrangements to be seen as outpatient with Dr Mann or Dr Cardozo. Per [facility] @ [facility] 10/24/18 Old myocardial infarction (Chronic) Besides the inferior IL 12/23/17, patient apparently had IL's and stents in 2012 and in 2014 Bradycardia (Chronic) History of louann hole surgery (Chronic 05/05/18) Right louann hole drainage of subdural hematoma, with placement of subdural gravity drain per Dr. Poli Segura @ [facility] Subdural hematoma (Chronic 05/05/18) Stented coronary artery (Chronic 01/22/18) Patient has had multiple stents in 2012 and 2014 but we do not have those records. LAURA (2.5X20 Promus Synergy) to mid RCA 12/23/17; LAURA (2.25 X 12 Promus [employer]nergy) to distal RCA/proximal PDA, as well as POBA to ostial PL Branch with 2.0 X12 balloon 01/22/18 Atherosclerotic heart disease of [place] coronary artery without angina pectoris (Chronic 12/23/17) LAURA (2.5X20 Promus Synergy) to RCA; pt to have staged procedure for PCI of ostial PDA History of acute inferior wall IL (Chronic 12/23/17) HTN (hypertension) (Chronic) HLD (hyperlipidemia) (Chronic) Diabetes mellitus, type II (Chronic) GERD (gastroesophageal reflux disease) (Chronic) Hospital Course and Treatment Imaging Results: Diagnostic Data Chest X-Ray 10/22/18 18:55 IMPRESSION: Normal x-ray examination of the chest. Electronically Signed: Alfredo Ham MD at 19:18 EDT , Service support , Dr. Sena- Cardiology Operations: None Procedures: 2-D Echocardiogram, Cardiac catheterization Summary of Care Provided: The patient is a 67 year old M admitted 10/22/2017 due to palpitations and heart racing. 1. New onset atrial flutter with aberrancy, wide-complex tachycardia-cardiology consulted during admission. Echocardiogram demonstrates an EF of 50%, mild segmental systolic dysfunction, stage I diastolic dysfunction. Continue oral amiodarone 400 mg twice daily through 10/28/2018, then transition to amiodarone 200 mg daily. Patient underwent cardiac catheterization which demonstrated triple-vessel CAD of the LAD, diagonal and RCA. Dr. Sena to make arrangements at [facility] with Dr. Mann or Dr. Cardozo for coronary revascularization. Patient to call office on Saturday to follow-up on this arrangement. Carotid ultrasound results pending at discharge, patient informed he can call Dr. Sena's office for these results as well. Continue aspirin, statin, Coreg, losartan. 2. History of recent spontaneous right-sided SDH-treated at [facility]. Had been on aspirin and Plavix following PCI, now on aspirin only. 3. CAD with history of PCI-continue aspirin, statin. Follows with Dr. Sena. Cardiac catheterization as noted above. Plans for outpatient follow-up for CABG. 4. Type 2 diabetes mellitus-continue home oral regimen. 5. Hypertension-continue home chlorthalidone, Norvasc regimen. Additionally started on carvedilol and losartan per cardiology. 6. Hyperlipidemia-continue statin regimen. 7. GERD-continue PPI. General: Alert, Oriented x3, Cooperative HEENT: Atraumatic, PERRLA, EOMI, Normocephalic Neck: Supple, No JVD, Negative Carotid Bruits Lungs: Clear to auscultation, Normal air movement Cardiovascular: Sinus rhythm, intermittent wide-complex tachycardia Abdomen: Bowel Sounds Present, Soft, Non Tender, Non-Distended Extremities: No clubbing, No cyanosis, No edema, Capillary Refill Less than 3 Seconds Skin: No rashes, No breakdown Musculoskeletal: No Tenderness to Palpation of Joints or Extremities Neurological: Cranial nerves II-XII grossly intact, Neuro grossly intact Psych/Mental Status: Normal Affect, Appropriate Patient seen and examined prior to discharge. Physical assessment as noted above. Patient is stable for discharge with follow up recommendations as noted above. This patient was seen by BRYAN White under the supervision of Dr. Kraft. - Physical Exam Vital Signs Temp Pulse Resp BP Pulse Ox 98.6 F 75 16 133/73 H 98 10/25/18 09:00 10/25/18 09:00 10/25/18 09:00 10/25/18 09:00 10/25/18 09:00 Oxygen Flow Rate (L/min) 2 Oxygen Delivery Method Room Air Weight: 199 lb 4.766 oz Body Mass Index (BMI) 30.3 Intake and Output for Last 24 Hours 10/23/18 10/24/18 10/25/18 23:59 23:59 23:59 Intake Total 4259.23 / 4275.93 3428.98 / 3428.98 Output Total 3410 / 3410 4200 / 4200 Balance 849.23 / 865.93 -771.02 / -771.02 POC Glucose 10/25/18 10/24/18 10/24/18 06:36 21:27 16:37 POC Glucose 198 H 251 H 301 H 10/24/18 11:52 POC Glucose 220 H Discharge Diet: Low fat/ Low Cholesterol Discharge Activity: Return to Normal Activity Call your doctor if you observe: Shortness of breath, Dizziness, Chest pain, Increased palpitations (irregular heartbeat) Home Medications: Medications to take at Discharge Aspirin E.C. [Ecotrin] 81 mg PO DAILY 12/23/17 Atorvastatin Calcium [Lipitor] 80 mg PO DAILY 12/23/17 Lansoprazole 15 mg PO DAILY 12/23/17 Nitroglycerin (INPATIENT USE) [Nitrostat] 0.4 mg SUBLINGUAL Q5M PRN #10 tab 10/31/18 Docusate Sodium [Colace] 100 mg PO DAILY PRN 05/15/18 Lactobacillus acidophilus capsule 1 cap PO DAILY 06/03/18 chlorthalidone 25 mg tablet 25 mg PO DAILY 06/03/18 Amlodipine Besylate 5 mg PO DAILY 10/22/18 Glipizide 10 mg PO BID 10/22/18 Insulin Aspart [Novolog Flexpen] 0 units SQ BIDCM 10/22/18 Psyllium Husk [Metamucil] 0.52 gm PO DAILY 10/22/18 Amiodarone HCl [Cordarone] 200 mg PO DAILY #60 tab 10/25/18 Carvedilol [Coreg (Beta Kaz)] 3.125 mg PO BID #120 tab 10/25/18 Losartan Potassium [Cozaar] 25 mg PO DAILY #60 tab 10/25/18 Following Prescrptions Were Given to Patient: Amiodarone HCl [Cordarone] 200 mg PO DAILY #60 tab Transmission Status: Received by [facility] [facility], Carvedilol [Coreg (Beta Kaz)] 3.125 mg PO BID #120 tab Transmission Status: Received by [facility] [facility] [facility], Losartan Potassium [Cozaar] 25 mg PO DAILY #60 tab Transmission Status: Received by [facility] [facility], Primary Care Physician: Miguel Love MD [Primary Care Provider] - Please follow up with your Primary Care Physician in: 1 Week Please Follow Up With: Tyler Sena MD When: Call Saturday to follow up on [facility] outpatient arrangements Disposition: Home Minutes spent on discharge:: 35 Patient Condition:: Stable Medical Necessity - Tobacco Use Smoking Status: Former smoker Tobacco Use: Non-smoker Meaningful Use Info Meaningful Use Diagnoses (Choose all that apply): None applicable <Torey Kraft - Last Filed: 10/26/18 11:44> Discharge Date and Diagnosis - Secondary Discharge Diagnosis Chronic Problems (Last Reviewed 06/05/18 @ 14:44 by Felipa Tee) History of left heart catheterization (Chronic 10/24/18) Surgery consult for coronary revascularization Pt is poor candidate for PCI to LAD or TRAVEL RN OR to RCA given recent sub dural hematoma with contra-indications to DAPT, as well as it would be a very difficult TRAVEL RN OR PCI given difficulty with previous PCI to RCA in 12/2017. I would recommend CABG to DIAG, LAD, and PDA +/- bypass to OM#1. Pt wishes to go to [facility] where he had his sub dural hematoma drained in 04/2017. Will make arrangements to be seen as outpatient with Dr Mann or Dr Cardozo. Per [facility] @ [facility] 10/24/18 Old myocardial infarction (Chronic) Besides the inferior IL 12/23/17, patient apparently had IL's and stents in 2012 and in 2014 Bradycardia (Chronic) History of louann hole surgery (Chronic 05/05/18) Right louann hole drainage of subdural hematoma, with placement of subdural gravity drain per Dr. Poli Segura @ [facility] Subdural hematoma (Chronic 05/05/18) Stented coronary artery (Chronic 01/22/18) Patient has had multiple stents in 2012 and 2014 but we do not have those records. LAURA (2.5X20 Promus [employer]nergy) to mid RCA 12/23/17; LAURA (2.25 X 12 Promus Synergy) to distal RCA/proximal PDA, as well as POBA to ostial PL Branch with 2.0 X12 balloon 01/22/18 Atherosclerotic heart disease of [place] coronary artery without angina pectoris (Chronic 12/23/17) LAURA (2.5X20 Promus Synergy) to RCA; pt to have staged procedure for PCI of ostial PDA History of acute inferior wall IL (Chronic 12/23/17) HTN (hypertension) (Chronic) HLD (hyperlipidemia) (Chronic) Diabetes mellitus, type II (Chronic) GERD (gastroesophageal reflux disease) (Chronic) Hospital Course and Treatment Summary of Care Provided: [] This patient was seen in conjunction with BILLING AND INSURANCE COORDINATORRadha. I have independently interviewed and examined the patient and reviewed pertinent history, examination findings, laboratory and plan of management. I have reviewed the note and agree with the documented findings with the few additional points. In brief, patient is admitted for palpitation with associated shortness of breath and midsternal chest discomfort/pain was found to be wide-complex tachycardia. It seems patient had new onset atrial flutter with aberrancy although VT cannot be ruled out. [facility] has been consulted. [facility] recommended further EP consult. Was treated with amiodarone drip which transition to oral. Echo of 10/23/2017 reported as EF 50% with mild segmental systolic dysfunction and stage I diastolic dysfunction. No significant valvular abnormality. Normal left and right atria. Patient had multiple PCI, states about 7 stents. Patient had last cath in December 2017 for which balloon angioplasty of ostial posterolateral branch 85% stenosis. Mid RCA in-stent 90% restenosis. Mildly elevated troponins probably secondary to demand ischemia. Patient had cardiac cath on 10/24/2018. Reported as EF 40%. Severe inferior basal hypokinesis, depressed LV systolic function. Mid LAD 75% stenosis. Ostial diagonal 1 85% stenosis. Mid RCA is occluded. Collateral flow from left to right. In fact patient is surviving on left side of circulation, LAD with collateral flow to right side of the heart with RCA occluded. Ostial circumflex 50%, mid circumflex 30%. Distal circumflex occluded. OM1 in-stent 50% stenosis. Patient had severe triple-vessel coronary artery disease and CABG is recommended. [facility] Carter is going to arrange outpatient follow-up with cardiothoracic surgery. The patient is discharged home in amiodarone 400 mg twice daily until 10/28/2018 and then 200 mg daily. Patient had subdural hematoma in April 2017 in [facility] on DAPT, aspirin and Plavix. Since then he is only on aspirin. Discharge medication reconciliation done. Discharge follow-up instructions completed. Discharge process discussed with the patient and all questions were answered to patient's satisfaction. Total time spent, exact 35 minutes on discharge meds reconciliation, examination, review of imaging and blood test and discussion with the patient on follow-up instructions. I have discussed my assessment with BILLING AND INSURANCE COORDINATORRadha and orders have been reviewed. Subjective: Seen and examined. Patient heart rate is controlled at 60 to 75 bpm, regular with some PVCs. On oral amiodarone. Patient ready for discharge. Objective: General: Alert, Oriented x3, Cooperative HEENT: Atraumatic, PERRLA, EOMI, Normocephalic, Scar of burrhole/craniotomy surgery for subdural hematoma Neck: Supple, No JVD, Negative Carotid Bruits Lungs: Clear to auscultation, Normal air movement, No rhonchi, No wheeze, No rales Cardiovascular: Regular rate, Regular Rhythm, Normal S1, Normal S2, No murmurs, Telemetry shows sinus rhythm with PVCs. Abdomen: Bowel Sounds Present, Soft, Non Tender Extremities: No edema, Capillary Refill Less than 3 Seconds Skin: No rashes, No breakdown Musculoskeletal: No Tenderness to Palpation of Joints or Extremities, Arthritic Changes Neurological: Cranial nerves II-XII grossly intact, Deep Tendon Reflexes 2+/4 and Symmetrical, Neuro grossly intact, Motor Exam 5/5 strength throughout Psych/Mental Status: Normal Affect, Appropriate - Physical Exam Vital Signs Temp Pulse Resp BP Pulse Ox 98.6 F 75 16 133/73 H 98 10/25/18 11:42 10/25/18 11:42 10/25/18 11:42 10/25/18 11:42 10/25/18 11:42 Oxygen Flow Rate (L/min) 2 Oxygen Delivery Method Room Air Weight: 199 lb 4.766 oz Body Mass Index (BMI) 30.3 Intake and Output for Last 24 Hours 10/24/18 10/25/18 10/26/18 23:59 23:59 23:59 Intake Total 3428.98 / 3428.98 Output Total 4200 / 4200 Balance -771.02 / -771.02 POC Glucose 10/25/18 11:29 POC Glucose 305 H Code Visit Inpatient E&M: 70199 Disch Hosp
[2018-10-25 11:41] LABS: Bedside Glucose 305 mg/dL (70-110)
[2018-10-25 11:42] VITALS: BP 133/73; PULSE 75; RESP 16; TEMP 37; O2SAT 98
--- NOTE | 2018-10-28 11:34 | CASEMGMT ---
JOSHUA CM Discharge Follow-up Phone Call: MARGUERITE: Shanae Strata: 4 Call Date: 10/28/18 Discharge Date: 10/25/18 Time of Call: 1133 Duration: 0 ? Admitting Diagnosis: Atrial flutter, CAD Discharge follow-up call made. Voicemail received and message left requesting a return call. Willian Bauer RN
--- NOTE | 2018-10-28 12:17 | CASEMGMT ---
Discharge follow-up call: Pt returned call. States he is holding his own. Pt denies any palpitations but states he is breathless especially when he walks from one room to the next. Pt states he does have intermittent chest pain at rest and with ambulation. Pt states he has attempted to call Dr. Sena's office this morning as instructed and has left a voicemail message requesting a return call but he has not received a call back as of this time. Pt states he is leaving to drive his girlfriend to her doctor's appointment in [place]. Pt states his girlfriend is able to drive if he is unable to. Pt states he did obtain his new prescribed medications and states he has been taking them as directed. This RN CM attempted to contact Dr. Sena's office but the staff is currently at lunch. Will call back when they reopen to follow-up on plan for referral to [place] cardiothoracic surgeon. Willian Bauer RN
--- NOTE | 2018-10-28 15:38 | CASEMGMT ---
Phone call to Dr. Sena's office completed at 1307 and was explained that a referral was submitted to Dr. Cardozo in [place]. Dr. Cardozo's office is to follow-up with patient for further evaluation. Attempted to call pt at 1530 to update on the status of his further evaluation but voicemail was received. Message left notifying pt of referral and expected call from Dr. Cardozo's office. Dr. Cardozo's office number and this RN CM's phone number were also provided in the instance he does not receive a call from them. Also instructed him to call Dr. Sena's office if needed for further referral information. Willian Bauer RN
== END 2018-10-25 12:19 | disposition home or self-care (01) | DRG 287 ==
LOC: ED 20:40 → PCU 20:58
PROVIDERS: Admitting Provider Family Medicine; Emergency Provider Emergency Medicine; Family Provider Family Medicine; PCP Family Medicine; Referring Provider Family Medicine; Visit Provider Internal Medicine
DX: I48.92 Unspecified atrial flutter (principal); I50.22 Chronic systolic (congestive) heart failure; E78.5 Hyperlipidemia, unspecified; E11.9 Type 2 diabetes mellitus without complications; I25.10 Atherosclerotic heart disease of native coronary artery without angina pectoris; K21.9 Gastro-esophageal reflux disease without esophagitis; I11.0 Hypertensive heart disease with heart failure; Z79.82 Long term (current) use of aspirin; I25.2 Old myocardial infarction; Z79.84 Long term (current) use of oral hypoglycemic drugs; Z95.5 Presence of coronary angioplasty implant and graft; Z87.891 Personal history of nicotine dependence
CPT/HCPCS: 36415; 71045; 80048; 80061; 82962; 83735; 84443; 84484; 85025; 85610; 85730; 93005; 93306; 93458; 93880; 97802; 99152; 99285; J7030; Q9957; Q9967; A4216; C1769; C1894; C8929

== ENCOUNTER → 2019-01-01 08:45 | Outpatient (CLI) | payer MEDICARE, OTHER, SELFPAY ==
[2018-12-11 09:51] VITALS: BMI 31.0
--- NOTE | 2019-01-01 08:53 | CR.HP_ITS ---
CR - History & Physical - General Arrival date:: 01/01/19 Arrival time:: 08:45 Date of Referral:: 11/06/18 Date of CR Evaluation:: 01/01/19 Referring Physician: DR ROTHMAN Primary Diagnosis: CABG X3 - History of Present Cardiac Event Onset Date: Enter Onset Date of cardiac illnesses in Comment field below Current stable Angina Pectoris:: No Acute Myocardial Infarction within 12 months:: No Coronary Artery Bypass Graft:: Yes - X3 Heart valve replacement or repair:: No PTCA or coronary stenting:: Yes - I SHOULD HAVE 9 STENTS FROM THE PAST Heart or Heart-Lung Transplant:: No Heart Failure EF <35%:: No Type of Symptoms:: RAPID HEART RATE, LABORED BREATHING Interventions with present event:: CABG X3 Were there any complications?: NONE - Medications Home Medications: Ambulatory Orders Medication Instructions Recorded Aspirin E.C. [Ecotrin] 81 mg PO DAILY 12/23/17 Atorvastatin Calcium [Lipitor] 80 mg PO DAILY 12/23/17 Lansoprazole 15 mg PO DAILY 12/23/17 Docusate Sodium [Colace] 100 mg PO DAILY PRN 05/15/18 Lactobacillus acidophilus capsule 1 cap PO DAILY 06/03/18 Psyllium Husk [Metamucil] 0.52 gm PO DAILY 10/22/18 Carvedilol [Coreg (Beta Kaz)] 3.125 mg PO BID #120 tab 10/25/18 amiodarone 200 mg tablet 200 mg PO DAILY #30 tab 12/11/18 cholecalciferol (vitamin D3) 2,000 2,000 unit PO DAILY 12/11/18 unit capsule insulin aspart (U-100) 100 unit/mL 9 unit SC TID ml 12/11/18 (3 mL) subcutaneous pen insulin glargine (U-100) 100 20 unit SC DAILY 12/11/18 unit/mL (3 mL) subcutaneous pen - Allergies Allergies/Adverse Reactions: Allergies lisinopril Adverse Reaction (Intermediate, Verified 12/11/18 09:54) COUGH - Sleep Disorder Evaluation Hx of Sleep Apnea: No Do you snore loudly (louder than talking or can be heard through closed doors)?: No Do you often feel tired/ fatigued/ sleepy during daytime?: No Has anyone observed you stop breathing during sleep?: No History of Hypertension (for STOP score): Yes STOP Results: Negative Advanced Directives - Advanced Directives Power of Medical Device Sales Representative: Yes Living Will: Yes Advance Directives Information Provided: Yes - PT/ STATES THAT THEY SHOULD BE ON FILE HERE Advance Directives on File: Yes DNR Order?:: No Past Medical History - Past Medical Illness Medical History: Past Medical History (Last Updated 12/16/18 @ 09:03 by Alice Mckinney) Essential hypertension (Chronic) I10 Atrial flutter (Chronic) I48.92 Bradycardia (Chronic) R00.1 Atherosclerotic heart disease of [place] coronary artery without angina pectoris (Chronic) Onset Date: 12/23/17 I25.10 LAURA (2.5X20 Promus Synergy) to RCA; pt to have staged procedure for PCI of ostial PDA;CABG X 3 Formerly [facility] 11/06/18 Dr. Mayor JUÁREZ to mid LAD, SVG to OM1, SVG to right PDA History of acute inferior wall MD (Chronic) Onset Date: 12/23/17 I25.2 Besides the inferior MD 12/23/17, patient apparently had MD's and stents in 2012 and in 2014 HLD (hyperlipidemia) (Chronic) E78.5 Diabetes mellitus, type II E11.9 GERD (gastroesophageal reflux disease) K21.9 Subdural hematoma Onset Date: 05/05/18 S06.5X9A - Past Surgical History Surgical History: Past Surgical History (Last Updated 12/16/18 @ 09:03 by Alice Mckinney) History of coronary artery bypass graft (Acute) Z95.1 CABG X 3 Formerly [facility] 11/06/18 Dr. 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 I would recommend CABG to DIAG, LAD, and PDA +/- bypass to OM#1. Pt wishes to go to [facility] where he had his sub dural hematoma drained in 04/2017. Will make arrangements to be seen as outpatient with Dr Mann or Dr Cardozo. Per [facility] @ [facility] 10/24/18 Stented coronary artery (Chronic) Onset Date: 01/22/18 Z95.5 Patient has had multiple stents in 2012 and 2014 but we do not have those records. LAURA (2.5X20 Promus Synergy) to mid RCA 12/23/17; LAURA (2.25 X 12 Promus Synergy) to distal RCA/proximal PDA, as well as POBA to ostial PL Branch with 2.0 X12 balloon 01/22/18 History of appendectomy Z90.49 History of louann hole surgery Onset Date: 05/05/18 Z98.890 Right louann hole drainage of subdural hematoma, with placement of subdural gravity drain per Dr. Poli Segura @ [facility] History of eye surgery Z98.890 Surgical History: - - PCI x 6, appendectomy, eye surgery in youth, louann hole/craniotomy status post spontaneous SDH. - Family History Summary Family History: Family History (Last Reviewed 06/05/18 @ 14:44 by Felipa Tee) Father Negative for ASCVD Mother Negative for ASCVD Social History - Smoking History Smoking Status: Former smoker Years Smokin - PT STATES HE QUIT APPROX 20 YRS AGO Packs Smoked per Day: 2 - Alcohol Use Alcohol Usage: No - Substance Abuse Hx Substance Use: No - Occupation Occupation (List type of work in comments):: Retired - Hobbies, Recreation, Social Activities Hobbies: Watch TV, Walking, Other - PUZZLES AND WORD SEARCH PUZZLES Recreational Activities: I am able to engage in most, but not all activities Social Environment - Status Marital Status: - Current Living Arrangements Living Environment:: Spouse - Children How many children do you have?: 2 Do any of your children live nearby?: Yes - Safety Do you feel safe in your surroundings?: Yes - Assistance Do you need any assistance at home?: NONE Review of Systems - Review of Systems Hints: Right click = Denies (Slash). Left click = Reports ([place]) Review of Present Symptoms: Reports: Wound Healing - INCISION EDGES WELL APPROXIMATED WITHOUT REDNESS OR EDEMA, Dizziness/Lightheadedness - I HAVE DIZZI NESS WHEN I CLOSE MY EYES IN SHOWER AND TILT HEAD BACK, Appetite - Normal, Sleep - Normal. Denies: Shortness of Breath at Rest, Shortness of Breath with Exertion, PVD, Operative Discomfort, Angina, Fatigue, Heart Arrhythmia/Irregularities - Pain Is Patient Pain Free?: Yes Risk Factor Assessment - Chief Complaint Chief Complaint: CURRENT CABG X3 PT WHO PRESENTS TODAY FOR CR INITIAL EVALUATION. HE IS A PREVIOUS CR PT. - Vital Signs Temperature: 98.6 F Respiratory Rate: 16 Pulse Ox: 98 Blood Pressure: 138/88 Nailbeds:: PINK - Pulse Pulse Rate: 60 Pulse Rhythm: Regular - Hypertension How long have you been treated?: CLOSE TO 20 YRS On medication(s)?: YES Blood Pressure Sitting - Left Arm: 138/88 - Stress Stress: Recent, Long-standing - I STILL HAVE THE [place] SITUATION, STRESS OF HOUSE, Home/Family - Blood Cholesterol/Lipids Total Cholesterol (mg/dL) Goal = less than 200 mg/dL: 150 HDL Cholesterol (mg/dL) Goal = less than 40 mg/dL: 41 LDL Cholesterol (mg/dL) Goal = less than 70 mg/dL: 69 Triglycerides (mg/dL) Goal = less than 150 mg/dL: 264 - Diabetes Diabetic History: Type II Nutrition Referral for Diabetes: No - Obesity Height: 5 ft 8 in Weight:: 204 lb Weight in Pounds: 204.0 lbs Weight Source: Stated by Patient Body Mass Index (BMI): 31.0 Nutritional Referral for Obesity: No - Physical Inactivity Physical Inactivity: Recreational activity - Risk Stratification Risk Guidelines: Lowest Risk: Risk Factor for Smoking - PT QUIT SMOKING 20 YEARS AGO, Risk Factor for Sedentary Lifestyle, Risk Factor for Depression, Moderate Risk: Risk Factor for Hypertension - 138/88, Highest Risk: Risk Factor for Dyslipidemia - TRIG 264, Risk Factor for Diabetes - AIC 7, Risk Factor for Obesity - For Smoking Smoking Risk Guidelines: Smoking Low Risk: None or quit greater than 6 months ago. Smoking Moderate Risk: Smoker or quit 6 months or less ago. Smoking High Risk: Smoker - For Dyslipidemia Dyslipidemia Risk Guidelines: Low Risk: Moderate Risk: High Risk: 15-25% fat 25.1-29% fat >/= 30% fat. <7% sat fat 7-9% sat fat >9% sat fat. <150 mg chol 150-299 mg chol >/= 300 mg chol. LDL <100 LDL 100-129 LDL >/= 130. Chol/HDL ratio <5.0 Chol/HDL ratio 5.0-6.0 Chol/HDL ratio >6.0. Triglycerides <100 Triglycerides 100-149 Triglycerides >/= 150 - For Diabetes Mellitus Diabetes Risk Guidelines: Diabetes Low Risk: HgA1c <6.5% and/or FBG <120. Diabetes Moderate Risk: HgA1c 6.6-7.9% and/or FBG 120-180. Diabetes High Risk: HgA1c >/= 8% and/or FBG >180 - For Obesity/Overweight Obesity/Overweight Risk Guidelines: Obesity Low Risk: BMI <25.0. Obesity Moderate Risk: BMI 25-29.9. Obesity High Risk: BMI >/= 30.0 - For Hypertension Hypertension Risk Guidelines: Hypertension Low Risk: Systolic <120 and Diastolic <80. Hypertension Moderate Risk: Systolic 120-139 and Diastolic 80-89. Hypertension High Risk: Systolic >/= 140 and Diastolic >/= 90 - For Sedentary Lifestyle Sedentary Lifestyle Risk Guidelines: Sedentary Lifestyle Low Risk: >/= 1,500 kcal/week. Sedentary Lifestyle Moderate Risk: 700-1,499 kcal/week. Sedentary Lifestyle High Risk: < 700 kcal/week - For Depression Depression Risk Guidelines: Depression Low Risk: Not clinically depressed. Depression Moderate Risk: Mildly depressed. Depression High Risk: Clinically depressed - Family History Family History: Family History (Last Reviewed 06/05/18 @ 14:44 by Felipa Tee) Father Negative for ASCVD Mother Negative for ASCVD Motivation - Motivation to Participate On a scale of 1 to 10, how prepared are you to commit to attending program?: 10 What do you see as barriers to successfully being able to complete the program?: NONE What do you see as the benefits of succesfully completing the program? In other words, what do you hope to get out of participating in the program?: GETTING IN BETTER CONDITION Are there issues you are dealing with that will interfere with completing the program?: NONE Do you have a spouse or signficant other, family or friends who will help support you to complete the program?: GIRLFRIEND
--- NOTE | 2019-01-01 08:53 | CR.ITP_ITS ---
General Information - General Information Admitting Diagnosis: CABG X3 - Education/Goals Barriers to Learning: None Individual Counseling: Initial Assessment: Abnormal Cholesterol Levels - TRIG 264, High Blood Pressure - 138/88, Overweight/Obesity, Diabetes - AIC 7, Metabolic Syndrome (as evidenced by 3 of 5 A-E below), C. High Triglycerides >150 - 264, Hypertension - 138/88, Stress Cardiac Rehabilitation Goals: 1. Maintain the individual as the primary focus of care. 2. To improve the patient's quality of life. 3. Identification of cardiac risk factors and provide cardiac risk factor management. 4. Enhance the psychosocial status of the patient. 5. Reconditioning enough to allow the patient to resume customary activities. 6. Control symptoms of cardiac disease Scale for measuring improvement of personal goals: Enter appropriate number in Comments. 2 = Unchanged. 3 = Slightly Better. 4 = Moderate Improvement. 5 = Met my Goal Personal Goals: Initial Assessment: Improve energy level, Improve knowledge of cardiac disease, Improve muscle strength and endurance, Control risk factors (learn risk factor modification) Exercise - Initial Assessment - Visit Date of Eval: 01/01/19 - Stages of Change Stages of Change:: Action - Physician Prescribed Exercise Modalities: Treadmill, Biodyne, Airdyne, NuStep, SciFit Frequency (days/week): 3x/week for 12 weeks [36 sessions] Intensity: 60-80% age predicted maximum heart rate reserve Target Heart Rate:: 100-132 - Hypertension Do any of the following apply?: Yes, Medication Resting Blood Pressure:: 138/88 - Intervention Home Exercise/Activity Goal:: Sitting Time <3 hrs/day - Education Goals:: Warm-up, RPE YOLETTE Scale, S/S, Safe Exercise, Self-Monitoring - Exercise Program Goals Exercise Program Goals: Aerobic Activity >30 min Nutrition - Initial Assessment - Program Goals Nutrition Program Goals: LDL <70. Total Cholesterol <200. HDL >45. Trig lycerides <150. HgbA1C <7%. BMI <25 - Visit Date of Assessment:: 01/01/19 - Stages of Change Stages of Change:: Action - Lipids Total Cholesterol (mg/dL) Goal = less than 200 mg/dL: 150 HDL Cholesterol (mg/dL) Goal = less than 45 mg/dL: 41 LDL Cholesterol (mg/dL) Goal = less than 70 mg/dL: 69 Triglycerides (mg/dL) Goal = less than 150 mg/dL: 264 Lipid Medication: ATORVASTATIN - Diabetes Diabetes:: Yes Hgb A1C: 7 Insulin: Yes Do you monitor your blood sugar at home?: Yes - Weight Management Height: 5 ft 8 in Weight:: 204 lb - Intervention Referral to dietitian:: No Referral to Diabetic Clinic:: No Will attend diet classes:: Yes - CR CLASSES Tobacco - Initial Assessment - Program Goals Tobacco Program Goals: Complete smoking cessation. Attend education classes. Improve Knowledge Test score - Stage of Change Stages of Change:: Action - Learning Barriers Learning Barriers: Vision, Ready to Learn - Family Support Do you have family support?: Yes - 'GIRLFRIEND' - Tobacco Use Tobacco Use: Non-smoker How long ago did you quit using tobacco products?: Greater than or equal to 6 months ago Years Smokin - Intervention Smoking Cessation Referral:: No Individual Education/Counseling:: No Education Schedule Given:: Yes - Education Attended class for:: Treating Heart Disease, How The Heart Works, What it means to have Heart Disease, How Coronary Artery Disease is Diagnosed, Heart Procedures, What Heart Medications Do, Risk Factors & Modifications, Living an Active Life, Nutrition, Emotions & Heart Disease, Stress Management & Relaxation, Sleep Disorders & Heart Disease - HE IS A PREVIOUS CR PATIENT, PLANS ON ATTENDING THE CLASSES AGAIN WELL Psychosocial - Initial Assess - Target Goals Target Goals: Assess presence or absence of depression. Using a valid screening tool, maximizes coping skills. Positive support system - Stages of Change Stages of Change:: Action - Psychosocial Test Tool Used:: HANDS Depression Questionnaire - Intervention PS - Interventions: Yes Attend Stress Management Classes - CR CLASSES, Yes Uses Stress Management Skills - CR CLASSES, No Referral to Mental Health, No Referral to [facility] Case Management, No Referral to Physician - Education Gave educational materials for:: Coping techniques, Signs & symptoms of depression, Stress management, Relaxation techniques - Patient/Program Goal Preventative Medication(s):: Aspirin, Beta daniela, Statin/lipid - Assistive Devices Assistive Devices:: None Fall Risk Assessed:: Yes - PT STATES ONLY GETS DIZZY IN SHOWER WHEN CLOSES EYES AND TILT HEAD BACK Patient Health Questionnaire Initial Assessment 1. Little interest or pleasure in doing things: Not at all 2. Feeling down, depressed, or hopeless: Not at all 3. Trouble falling or staying asleep, or sleeping too much: Not at all 4. Feeling tired or having little energy: Not at all 5. Poor appetite or overeating: Not at all 6. Feeling bad about yourself -- or that you are a failure or have let yourself or your family down: Not at all 7. Trouble concentrating on things, such as reading the newspaper or watching television: Not at all 8. Moving or speaking so slowly that other people could have noticed. Or the op posite - being so fidgety or restless that you have been moving around a lot more than usual: Not at all 9. Thoughts that you would be better off , or of hurting yourself in some way: Not at all Total Score: 0 JEANETTE-Q SV Test - Statements CAD is a disease of the arteries in the heart: False Examples of risk factors for heart disease: False Angina is chest pain or discomfort: False The benefits of resistance training include: False Eating more meat and dairy products: True Anti-platelet medications such as aspirin are important: False The only effective way to manage stress: True An exercise warm-up slowly increases heart rate: True Prepared, processed foods usually have high sodium: True Depression is common after a heart attack: True The statin medications lower cholesterol: True To control blood pressure, lower the amount of sodium: True If someone gets chest discomfort during walking: False Transfats are partially hydrogenated vegetable oils: True Sleep apnea that is not treated increases the risk: False To control cholesterol, one should become a vegetarian: False Someone knows if he/she is exercising at the right level: True Diabetes cannot be prevented with exercise & health eating: False Stress is a large risk for heart attack: True A diet that can help lower blood pressure is rich in: True - Total Score Total Correct Responses: 14 Self-Efficacy Initial Assessment We would like to know how confident you are in doing certain activities. Please select your confidence level for:: Select your confidence level for the following using the scale 1-10 where 1 is not at all confident and 10 is totally confident. Your score is the average of all 6 responses. Fatigue: How confident are you that you can keep the fatigue caused by your disease from interfering with the things you want to do? Select Number: 9 Physical Discomfort or Pain: How confident are you that you can keep the physical discomfort or pain of your disease from interfering with the things you want to do? Select Number: 10 Emotional Distress: How confident are you that you can keep the emotional distress caused by your disease from interfering with the things you want to do? Select Number: 10 Other Symptoms or Health Problems: How confident are you that you can keep other symptoms or health problems from interfering with the things you want to do? Select Number: 8 Different Tasks and Activities: How confident are you that you can do the different tasks and activities needed to manage your health condition so as to reduce your need to see a doctor? Select Number: 10 Medication: How confident are you that you can do things other than just taking medication to reduce how much your illness affects your everyday life? Select Number: 10 Total Score:: 9 Nutrition Survey - Nutrition Survey Instructions Scoring Instructions: Scoring is as follows: Yes = 1 points. No = 0 point. Patient score that is >/=12 is considered to be at potential nutritional risk and could benefit from a referral to a registered dietitian. - Nutrition Survey Initial Have you lost >10 lbs over the past 2 months without trying?: No Are you following a special diet at home for diabetes, low fat, or low salt?: Yes Are you interested in meeting with a dietitian for help understanding your diet?: No Do you eat less than 3 meals a day?: No Do you eat fatty meats (garzon, sausage, ribs, etc), fried foods, desserts, large amounts of salad dressings, margarine, butter, or cheese most days?: No Do you have food allergies? [Enter types in comment field]: No Do you eat in restaurants more than 3 times a week?: No Do you season food with salt, seasoning salt, or garlic salt?: Yes Do you used canned, boxed, frozen meals, or soups, seasoning packets?: No Total Score:: 2
[2019-01-01 09:19] VITALS: BP 138/88; PULSE 60; RESP 16; TEMP 37; O2SAT 98; BMI 31.0
[2019-01-01 09:43] VITALS: BP 138/88
== END ==
PROVIDERS: Family Provider Family Medicine; PCP Family Medicine; Referring Provider Internal Medicine Cardiovascular Disease; Visit Provider Internal Medicine Cardiovascular Disease
DX: I25.10 Atherosclerotic heart disease of native coronary artery without angina pectoris (principal); I25.2 Old myocardial infarction; Z95.1 Presence of aortocoronary bypass graft; Z95.5 Presence of coronary angioplasty implant and graft

== ENCOUNTER 2019-01-21 13:00 | Outpatient (RCR) | payer MEDICARE, OTHER, SELFPAY ==
[2019-01-01 09:19] VITALS: BMI 31.0
== END 2019-01-24 23:59 ==
LOC: CR 13:00
PROVIDERS: Family Provider Family Medicine; PCP Family Medicine; Referring Provider Internal Medicine Cardiovascular Disease; Visit Provider Internal Medicine Cardiovascular Disease
DX: Z95.1 Presence of aortocoronary bypass graft (principal); I25.10 Atherosclerotic heart disease of native coronary artery without angina pectoris
CPT/HCPCS: 93798

== ENCOUNTER → 2019-02-10 13:57 | Outpatient (CLI) | payer MEDICARE, OTHER, SELFPAY ==
[2019-02-09 15:27] VITALS: BMI 31.0
== END ==
PROVIDERS: Family Provider Family Medicine; PCP Family Medicine; Referring Provider Physician Assistant; Visit Provider Physician Assistant
DX: J02.9 Acute pharyngitis, unspecified (principal)
CPT/HCPCS: 87070

== ENCOUNTER 2019-02-23 13:00 | Outpatient (RCR) | payer MEDICARE, OTHER, SELFPAY ==
[2019-01-01 09:19] VITALS: BMI 31.0
--- NOTE | 2019-01-30 12:59 | PCM.CR.ITP ---
Exercise - 30-day Assessment - Visit Date of Eval: 01/30/19 Session #:: 9 - STARTED CR ON 01/05/2019 - Physician Prescribed Exercise Modalities: Treadmill, Airdyne, NuStep Frequency (days/week): 3 Duration (Minutes):: 30-45 Intensity: 60-80% age predicted maximum heart rate reserve METs - Progression: 0.5-1.0 MET, RPE 11-14 WEEK: 4.5 INCREASED FROM 3.5 Target Heart Rate:: 100-132 - Hypertension Resting Blood Pressure:: 134/74 Peak Exercise Blood Pressure:: 162/94 Medication Changes:: No - Intervention Home Exercise/Activity Goal:: Sitting Time <3 hrs/day - Education Goals:: Warm-up, RPE YOLETTE Scale, S/S, Safe Exercise, Self-Monitoring - Exercise Program Goals Exercise Program Goals: Aerobic Activity >30 min Nutrition - Initial Assessment - Program Goals Nutrition Program Goals: LDL <70. Total Cholesterol <200. HDL >45. Triglycerides <150. HgbA1C <7%. BMI <25 - Diabetes Do you monitor your blood sugar at home?: Yes Nutrition - 30-Day Assessment - Program Goals Nutrition Program Goals: LDL <70. Total Cholesterol <200. HDL >45. Triglycerides <150. HgbA1C <7%. BMI <25 - Visit Date of Eval: 01/30/19 - Stages of Change Stages of Change:: Action - Lipids Has the patient seen the dietitian?: No - Diabetes Diabetes:: No - Weight Management Weight:: 207 lb 8 oz - UNCHANGED - Intervention Referral to dietitian:: No Referral to Diabetic Clinic:: No Will attend diet classes:: Yes - Education Attended class for:: Healthy eating Tobacco - Initial Assessment - Program Goals Tobacco Program Goals: Complete smoking cessation. Attend education classes. Improve Knowledge Test score - Learning Barriers Learning Barriers: Vision, Ready to Learn Tobacco - 30-Day Assessment - Program Goals Tobacco Program Goals: Complete smoking cessation. Attend education classes. Improve Knowledge Test score - Stage of Change Stages of Change:: Action - Learning Barriers Learning Barriers: Participates in education - Family Support Do you have family support?: Yes - Tobacco Use Tobacco Use: Non-smoker Do you use smokeless tobacco?: No - Intervention Smoking Cessation Referral:: No Education Schedule Given:: Yes - Education Attended class for:: Treating Heart Disease, How The Heart Works, What it means to have Heart Disease, How Coronary Artery Disease is Diagnosed Psychosocial - Initial Assess - Target Goals Target Goals: Assess presence or absence of depression. Using a valid screening tool, maximizes coping skills. Positive support system - Psychosocial Test Tool Used:: HANDS Depression Questionnaire - Assistive Devices Fall Risk Assessed:: Yes - PT STATES ONLY GETS DIZZY IN SHOWER WHEN CLOSES EYES AND TILT HEAD BACK Psychosocial - 30-Day Assess - Target Goals Target Goals: Assess presence or absence of depression. Using a valid screening tool, maximizes coping skills. Positive support system - Stages of Change Stages of Change:: Action - Psychosocial Test Tool Used:: HANDS Depression Questionnaire Tests Completed: SF - 36 survey completed, Mood Scale Test - Intervention PS - Interventions: Yes Attend Stress Management Classes, Yes Uses Stress Management Skills, No Referral to Mental Health, No Referral to [facility] Case Management, No Referral to Physician - Education Attended classes for:: Coping techniques, Signs & symptoms of depression, Stress management, Relaxation techniques - Patient/Program Goal Preventative Medication(s):: Aspirin, MANOLO inhibitor - PATIENT REPORTS COMPLIANCE WITH PRESCRIBED MEDICATIONS., Clopidogrel, Beta daniela, Statin/lipid - Assistive Devices Assistive Devices:: None Fall Risk Assessed:: Yes Patient Health Questionnaire 30-Day Re-eval Assessment 1. Little interest or pleasure in doing things: Not at all 2. Feeling down, depressed, or hopeless: Not at all 3. Trouble falling or staying asleep, or sleeping too much: Not at all 4. Feeling tired or having little energy: Not at all 5. Poor appetite or overeating: Not at all 6. Feeling bad about yourself -- or that you are a failure or have let yourself or your family down: Not at all 7. Trouble concentrating on things, such as reading the newspaper or watching television: Not at all 8. Moving or speaking so slowly that other people could have noticed. Or the opposite - being so fidgety or restless that you have been moving around a lot more than usual: Not at all 9. Thoughts that you would be better off , or of hurting yourself in some way: Not at all Total Score: 0 Self-Efficacy 30-Day Re-eval Assessment We would like to know how confident you are in doing certain activities. Please select your confidence level for:: Select your confidence level for the following using the scale 1-10 where 1 is not at all confident and 10 is totally confident. Your score is the average of all 6 responses. Fatigue: How confident are you that you can keep the fatigue caused by your disease from interfering with the things you want to do? Select Number: 10 Physical Discomfort or Pain: How confident are you that you can keep the physical discomfort or pain of your disease from interfering with the things you want to do? Select Number: 10 Emotional Distress: How confident are you that you can keep the emotional distress caused by your disease from interfering with the things you want to do? Select Number: 10 Other Symptoms or Health Problems: How confident are you that you can keep other symptoms or health problems from interfering with the things you want to do? Select Number: 8 Different Tasks and Activities: How confident are you that you can do the different tasks and activities needed to manage your health condition so as to reduce your need to see a doctor? Select Number: 10 Medication: How confident are you that you can do things other than just taking medication to reduce how much your illness affects your everyday life? Select Number: 10 Total Score:: 9
[2019-01-30 13:03] VITALS: BP 134/74; BP 162/94
== END 2019-02-24 23:59 ==
LOC: CR 13:00
PROVIDERS: Family Provider Family Medicine; PCP Family Medicine; Referring Provider Internal Medicine Cardiovascular Disease; Visit Provider Internal Medicine Cardiovascular Disease
DX: I25.10 Atherosclerotic heart disease of native coronary artery without angina pectoris (principal); Z95.1 Presence of aortocoronary bypass graft
CPT/HCPCS: 93798

== ENCOUNTER → 2019-03-13 07:43 | Outpatient (CLI) | payer MEDICARE, OTHER, SELFPAY ==
[2019-02-09 15:27] VITALS: BMI 31.0
--- NOTE | 2019-03-13 07:45 | CT_ITS ---
STUDY: CT BRAIN WITHOUT CONTRAST REASON FOR EXAM: Male, 68 years old. PT STATED HEADACHE, HX OF SUBDURAL HEMATOMA, HX OF CRANIOTOMY 05/11/18 RADIATION DOSAGE (If Supplied By Facility): CTDIvol = ( 44.99 ) mGy, DLP = ( 812.98 ) mGycm TECHNIQUE: Transaxial CT imaging of the brain was performed without administration of intravenous contrast material. Coronal and sagittal reconstructions were performed. Individualized dose optimization techniques were used for this CT. COMPARISON: 05/22/2018. FINDINGS: Normal soft tissue structures. Bur holes in the right hemicalvarium are unchanged. Normal size ventricles and extra-axial spaces for the patient''s age. Normal white matter tracts of the cerebral hemispheres. Normal basal ganglia and thalami. Normal brainstem. Normal cerebellum. There is no intracranial hemorrhage. There are no findings of an acute ischemic infarction. Normal visualized paranasal sinuses. CT/Brain/Head without Contrast IMPRESSION: Normal noncontrast CT head scan at this time with clearing of the mixed isodense and hypodense right subdural fluid overlying the right cerebral hemisphere when compared to 05/14/2018. Electronically Signed: Stanford Hassan MD at 8:16 EST , Service support ,
== END ==
PROVIDERS: Family Provider Family Medicine; PCP Family Medicine; Referring Provider Family Medicine; Visit Provider Family Medicine
DX: R51 Headache (principal); Z86.79 Personal history of other diseases of the circulatory system
CPT/HCPCS: 70450

== ENCOUNTER 2019-03-27 13:00 | Outpatient (RCR) | payer MEDICARE, OTHER, SELFPAY ==
[2019-02-09 15:27] VITALS: BMI 31.0
[2019-02-25 00:52] VITALS: BP 134/74; BP 162/94
--- NOTE | 2019-03-02 06:34 | PCM.CR.ITP ---
Exercise - 60-Day Assessment - Visit Date of Eval: 03/02/19 Session #:: 18 - STARTED CR ON 01/05/2019 MISSED 2 SESSION DUE TO ILLNESS. - Stages of Change Stages of Change:: Action - Physician Prescribed Exercise Modalities: Treadmill, Airdyne, NuStep Frequency (days/week): 3 Duration (Minutes):: 30-45 Intensity: 60-80% age predicted maximum heart rate reserve METs - Progression: 0.5-1.0 MET, RPE 11-14 WEEK: 5 INCREASE FROM 3.5 RPE 13 Target Heart Rate:: 100-132 MAX HR 103 - Hypertension Resting Blood Pressure:: 122/68 Peak Exercise Blood Pressure:: 162/92 Medication Changes:: No - Intervention Home Exercise/Activity Goal:: Moderate Exercise 30 min/day x 5 days/wk - Education Goals:: Warm-up, RPE YOLETTE Scale, S/S, Safe Exercise, Self-Monitoring - Exercise Program Goals Exercise Program Goals: Aerobic Activity >30 min Nutrition - Initial Assessment - Program Goals Nutrition Program Goals: LDL <70. Total Cholesterol <200. HDL >45. Triglycerides <150. HgbA1C <7%. BMI <25 - Diabetes Do you monitor your blood sugar at home?: Yes Nutrition - 60-Day Assessment - Program Goals Nutrition Program Goals: LDL <70. Total Cholesterol <200. HDL >45. Triglycerides <150. HgbA1C <7%. BMI <25 - Visit Date of Eval: 03/02/19 - Stages of Change Stages of Change:: Action - Lipids Has the patient seen the dietitian?: No - Diabetes Diabetes:: Yes Insulin: Yes Non-Insulin Dependent?: Yes - Weight Management Weight:: 209 lb - UP FROM 206.5 - Intervention Referral to dietitian:: Yes - Why Weight Management Referral to Diabetic Clinic:: Yes - [facility] MNT Will attend diet classes:: Yes - Education Attended class for:: Signs & symptoms of hypoglycemia, Signs & symptoms of hyperglycemia, Relate diabetes to coronary artery disease, Healthy eating Tobacco - Initial Assessment - Program Goals Tobacco Program Goals: Complete smoking cessation. Attend education classes. Improve Knowledge Test score - Learning Barriers Learning Barriers: Vision, Ready to Learn Tobacco - 30-Day Assessment - Program Goals Tobacco Program Goals: Complete smoking cessation. Attend education classes. Improve Knowledge Test score - Stage of Change Stages of Change:: Action Tobacco - 60-Day Assessment - Program Goals Tobacco Program Goals: Complete smoking cessation. Attend education classes. Improve Knowledge Test score - Stage of Change Stages of Change:: Action - Learning Barriers Learning Barriers: Participates in education - Family Support Do you have family support?: Yes - Tobacco Use Tobacco Use: Non-smoker Do you use smokeless tobacco?: No - Intervention Smoking Cessation Referral:: No Individual Education/Counseling:: No Education Schedule Given:: Yes - Education Attended class for:: Treating Heart Disease, How The Heart Works, What it means to have Heart Disease, How Coronary Artery Disease is Diagnosed, Heart Procedures, What Heart Medications Do, Risk Factors & Modifications, Living an Active Life, Nutrition Psychosocial - Initial Assess - Target Goals Target Goals: Assess presence or absence of depression. Using a valid screening tool, maximizes coping skills. Positive support system - Psychosocial Test Tool Used:: HANDS Depression Questionnaire - Assistive Devices Fall Risk Assessed:: Yes - PT STATES ONLY GETS DIZZY IN SHOWER WHEN CLOSES EYES AND TILT HEAD BACK Psychosocial - 60-Day Assess - Target Goals Target Goals: Assess presence or absence of depression. Using a valid screening tool, maximizes coping skills. Positive support system - Stages of Change Stages of Change:: Action - Psychosocial Test Tool Used:: HANDS Depression Questionnaire - Intervention PS - Interventions: Yes Attend Stress Management Classes, Yes Uses Stress Management Skills, No Referral to Mental Health, No Referral to [facility] Case Management, No Referral to Physician - Education Attended classes for:: Coping techniques, Signs & symptoms of depression, Stress management, Relaxation techniques - Patient/Program Goal Preventative Medication(s):: Aspirin, MANOLO inhibitor, Clopidogrel, Beta daniela, Statin/lipid - Patient reports taking medications as prescribed - Assistive Devices Assistive Devices:: None Fall Risk Assessed:: Yes Patient Health Questionnaire 60-Day Re-eval Assessment 1. Little interest or pleasure in doing things: Not at all 2. Feeling down, depressed, or hopeless: Not at all 3. Trouble falling or staying asleep, or sleeping too much: Not at all 4. Feeling tired or having little energy: Not at all 5. Poor appetite or overeating: Not at all 6. Feeling bad about yourself -- or that you are a failure or have let yourself or your family down: Not at all 7. Trouble concentrating on things, such as reading the newspaper or watching television: Not at all 8. Moving or speaking so slowly that other people could have noticed. Or the opposite - being so fidgety or restless that you have been moving around a lot more than usual: Not at all 9. Thoughts that you would be better off , or of hurting yourself in some way: Not at all How difficult have these problems made it for you to do your work, take care of things at home, or get along with other people?: Not difficult at all Total Score: 0 Self-Efficacy 60-Day Re-eval Assessment We would like to know how confident you are in doing certain activities. Please select your confidence level for:: Select your confidence level for the following using the scale 1-10 where 1 is not at all confident and 10 is totally confident. Your score is the average of all 6 responses. Fatigue: How confident are you that you can keep the fatigue caused by your disease from interfering with the things you want to do? Select Number: 9 Physical Discomfort or Pain: How confident are you that you can keep the physical discomfort or pain of your disease from interfering with the things you want to do? Select Number: 10 Emotional Distress: How confident are you that you can keep the emotional distress caused by your disease from interfering with the things you want to do? Select Number: 10 Other Symptoms or Health Problems: How confident are you that you can keep other symptoms or health problems from interfering with the things you want to do? Select Number: 9 Different Tasks and Activities: How confident are you that you can do the different tasks and activities needed to manage your health condition so as to reduce your need to see a doctor? Select Number: 10 Medication: How confident are you that you can do things other than just taking medication to reduce how much your illness affects your everyday life? Select Number: 10 Total Score:: 9
[2019-03-02 06:40] VITALS: BP 122/68; BP 162/92
== END 2019-03-27 23:59 ==
LOC: CR 13:00
PROVIDERS: Family Provider Family Medicine; PCP Family Medicine; Referring Provider Internal Medicine Cardiovascular Disease; Visit Provider Internal Medicine Cardiovascular Disease
DX: I25.10 Atherosclerotic heart disease of native coronary artery without angina pectoris (principal); Z95.1 Presence of aortocoronary bypass graft
CPT/HCPCS: 93798

== ENCOUNTER 2019-04-10 13:00 | Outpatient (RCR) | payer MEDICARE, OTHER, SELFPAY ==
[2019-02-09 15:27] VITALS: BMI 31.0
[2019-03-28 00:47] VITALS: BP 122/68; BP 162/92
--- NOTE | 2019-04-03 08:34 | PCM.CR.ITP ---
Diagnosis - General Information Admitting Diagnosis: S/P CABG Personal Learning Style:: Audio/Visual, Written Barriers to Learning: Hearing Impairment, Low Literacy, Vision Impairment Stage of change r/t lifestyle modifications:: Action Gave educational material for:: Treating Heart Disease, Emotions & Heart Disease, Stress Management & Relaxation, Sleep Disorders & Heart Disease, How The Heart Works, What it means to have Heart Disease, How Coronary Artery Disease is Diagnosed, Heart Procedures, What Heart Medications Do, Risk Factors & Modifications, Living an Active Life, Nutrition - Education/Goals Individual Counseling: Initial Assessment: Abnormal Cholesterol Levels, High Blood Pressure, Overweight/Obesity Cardiac Rehabilitation Goals: 1. Maintain the individual as the primary focus of care. 2. To improve the patient's quality of life. 3. Identification of cardiac risk factors and provide cardiac risk factor management. 4. Enhance the psychosocial status of the patient. 5. Reconditioning enough to allow the patient to resume customary activities. 6. Control symptoms of cardiac disease Personal Goals: Initial Assessment: Improve management of stress and emotions - 4, Improve knowledge of cardiac disease - 4, Improve muscle strength and endurance - 3, Improve diet and eating habits (eat healthier) - 3, Control risk factors (learn risk factor modification) - 3 Scale for measuring improvement of personal goals: Enter appropriate number in Comments. 2 = Unchanged. 3 = Slightly Better. 4 = Moderate Improvement. 5 = Met my Goal - Diagnosis & Disease Process Outcomes/Goals: Pt IDs own risk factors & lifestyle modifications by Session 10, Verbalizes symptoms of angina & response by session 3. Plan/Interventions: Assist Pt to ID & engage in lifestyle modification to reduce CVD risk, Instruct on individual risk factors, Review symptoms of angina & emergency actions, Review secondary diagnosis & identify educational needs. 30 day Reassessments:: Progressing 30 day Reassessments:: Progressing 30 day Reassessments:: Progressing - Safety Referral to Physical Therapy: No Referral to [facility] Case Management: No Fall Risk Assessed:: Yes Assistive Devices:: None Exercise - 90-day Assessment - Visit Date of Eval: 04/03/19 Session #:: 32 - STARTED 01/05/2019 HAS MISSED ONLY 2 SESSIONS - Physician Prescribed Exercise Modalities: Treadmill, Airdyne, NuStep Frequency: 3x/week for 12 weeks [36 sessions] Intensity: 60-80% of age predicted maximum heart rate reserve Current METSs:: 5 MAX'd Target Heart Rate:: 100-132 Current RPE:: 13-14 Maximum Excercise HR:: 88 Resting Blood Pressure: 118/70 Maximum Exercise Blood Pressure: 130/74 EKG Type: NSR W/RARE PACs ADN PVCs. - Outcomes & Goals Goals:: Verbalizes understanding of THR, RPE & goal METS by session 6, Documents in home exercise log/reports 30 min aerobic 5 day/wk by DC, Demonstrates accurate pulse taking by DC - Intervention & Plan Exercise Program Goals: Instruct on personal THR & RPE, Instruct on MET level & personal MET goal, Show patient to take own pulse /validate performance until accurate, Instruct on home exercise - 30-day Reassessments 30 day Reassessments:: Not Met - PATIENT IS MAX'd AT CURRENT LEVEL OF 5 METs DUE TO FATIGUE ADN SHORTNESS OF BREATH AT HIGHER LEVELS. - Physical Activity Home Exercise Physical Activity - Home Exercise: Safe Exercise, Warm-up, Self-monitoring, Cool-Down, Home Exercise > 30 min Daily, Sitting Time <3 hours/daily - Outcomes & Goals Outcomes/Goals: Demonstrates correct Warm-up/exercise Cool-Down (S3) if = 2.5 METs, Verbalizes symptoms of exercise intolerance by Session 3 (S3), Demonstrate safe equipment use (S3) & follows exercise prescrition (6) - Intervention & Plan Plan/Intervention: Instruct warm-up & cool-down if exercising at > 2 METs, Instruct on symptoms of exercise intolerance & actions to take, Instruct & monitor on saf, Assess intial functional capacity & safety risk - 30-day Reassessments 30 day Reassessments:: Not Met Nutrition - 90-Day Assessment - Program Goals Nutrition Program Goals: LDL <100 optimal. 100 - 129 Near optimal. 130 - 159 Borderline High. 160 - 189 High. Total Cholesterol <200 desirable. 200 - 239 Borderline High. >/= 240 High. HDL < 40 Low >/=60 High. Triglycerides <150 desirable. <199 optimal. VlDL 5 - 40. HgbA1C <7%. BMI <25 Patient has diagnosis of Hyperlipidemia (ICD E78)?: Yes - Visit Date of Assessment:: 04/03/19 Session #:: 32 - Cholesterol/Lipids Triglycerides (mg/dL): 264 LDL Cholesterol (mg/dL): 69 HDL Cholesterol (mg/dL): 41 Lipid Medication: LIPITOR Determine presence & major risk factors that modify LDL goal: Hypertension or hypertensive medication, Age men > 45 years; women >/= 55 years Outcomes/Goals: Pt IDs own risk factors & lifestyle modifications by Session 10, Verbalizes symptoms of angina & response by session 3., Pt independently manages Intervention/Plan: Instruct on personal lipid levels & lipid goals/NCEP guidelines, Instruct on cholesterol Referral to dietitian:: Yes - MEDICAL NUTRITION THERAPY 30-day Reassessments:: Met - CHOLESTEROL UNDER EXCELLENT CONTROL CONTINUE LIPITOR PER DR. ROTHMAN - Diabetes (Other Core Measures) Diabetes Type: Diagnosis Type II ICD-10 E11 Insulin dependent injection/pump?: Yes - ASPART/GLARGINE Non-Insulin Dependent?: Yes Do you monitor your blood sugar at home?: Yes Referral to Diabetic Clinic:: Yes - INITIAL MSNT & MNT Outcomes/Goals:: Able to state symptoms of, Able to state, Able to state Intervention/Plan:: Instruct on, Refer to, Instruct on 30-day Reassessments:: Progressing - Weight Mgt (Other Care) Not Applicable: No Height: 5 ft 6 in Weight:: 212 lb 8 oz BMI: 34.2 Diagnosis Overweight/Obesity BMI> 30% ICD-10 E66: Yes Diagnosis High BMI/Morbid Obesity BMI> 35% ICD-10 Z68: No Outcomes/Goals: Pt sets, maintains & shows weight loss goal & trend during rehab Intervention/Plan: Instruct on ideal BMI & set weight loss goal w/patient, Assist pt to ID & incorporate diet changes for weight loss by S9, Refer to Structured Weight Loss program as appropriate, Encourage goal of using 250-300dcal per session for weight loss 30 day Reassessments:: Not Met - Healthy Eating Habits Will attend diet classes:: Yes Outcomes/Goals:: Consume diet rich in vegs,fruits,whole grain/high fiber,fish,lean meat, Limit sat/trans fats,cholesterol & added salts & sugars Intervention/Plan:: Assess current eating habits 30-day Reassessments:: Not Met - Education Gave educational materials for:: Signs & symptoms of hypoglycemia, Signs & symptoms of hyperglycemia, Relate diabetes to coronary artery disease, Healthy eating Medical- 90-Day Assessment - Visit Date of Eval: 04/03/19 - Medication Compliance Preventative Medication(s):: Aspirin, Statin/lipid, Beta daniela H/O mental health issues: depression, anxiety, or addiction?: No Doesn?t believe in the benefits of treatment?: No Believes medications are unnecessary or harmful?: No Has a concern about medication side effects?: No Expresses concern over the cost of medications?: No Outcomes/Goals: Verbalizes medications,desired effect & common side effects @ DC, Pt self-reports following medication regimen, Keeps card in wallet w/medications listed by DC Interventions/plans: Instruct on medication effects & side effects, Review medication list w/patient every two weeks, Instruct importance of taking meds as ordered & assist problem solving 30-day Reassessments:: Progressing - Tobacco Use Tobacco Use: Non-smoker - Hypertension Resting Blood Pressure:: 118/70 [place] [employer] Hypertension Guidelines: [place] [employer] Hypertension Guidelines. Normal BP Less than 120/80. Elevated BP 120/80. Hypertension Stage 1: BP 130-139/80-89. Hypertesnion Stage 2: BP 140 or higher/90 or higher. Hypertension Crisis: BP higher than 180/120 Peak Exercise Blood Pressure:: 130/74 Outcomes/Goals: Able to verbalize/achieve optimal blood pressure <130/80, Incorporates diet changes & exercise for blood pressure control by DC Interventions/plan: Instruct on optimal blood pressure, hypertension & medications, Instruct on effects of sodium, alcohol, stress, exercise &hypertension 30 day Reassessments:: Met - Tobacco Cessation Referral Smoking Cessation Referral:: No Individual Education/Counseling:: No Education Schedule Given:: Yes Psychosocial - 90-Day Assess - VIsit Date of Eval: 04/03/19 Session #:: 32 Not Applicable: No History of previous Mental disease:: No - Target Goals Target Goals: Assess presence or absence of depression. Using a valid screening tool, maximizes coping skills. Positive support system - Psychosocial Test Tool Used:: [place] Uriarte QOL Cardiac, PHQ-9 Questionnaire phq-9 Severity: Severity. 1-4 Minimal Depression. 5-9 Mild Depression. 10-14 Moderate Depression. 15-19 Moderately Sever Depression. 20-27 Severe Depression. Rule: - Referral to Behavioral Health PS - Interventions: Yes Attend Stress Management Classes, No Referral to Behavioral Health if PHQ-9 score >9:, No Referral to [facility], No Referral to Physician if PHQ-9 if score is 5-9: - Outcomes/Goals: See list Psychosocial Outcomes/Goals:: ID's personal stressors & 2 strategies to manage stress by discharge - Intervention/Plan: See List Interventions/Plan:: Assess stressors,coping strategies & signs of derpression on admission, Instruct/assist pt to develop coping & personal stress Mgt strategies, Instruct patient to recognize signs & symptoms of depression, Instruct patient to recog - 30-day Reassessments: 30 day Reassessments:: Met Patient Health Questionnaire 90-Day Re-eval Assessment 1. Little interest or pleasure in doing things: Not at all 2. Feeling down, depressed, or hopeless: Not at all 3. Trouble falling or staying asleep, or sleeping too much: Not at all 4. Feeling tired or having little energy: Not at all 5. Poor appetite or overeating: Not at all 6. Feeling bad about yourself -- or that you are a failure or have let yourself or your family down: Not at all 7. Trouble concentrating on things, such as reading the newspaper or watching television: Not at all 8. Moving or speaking so slowly that other people could have noticed. Or the opposite - being so fidgety or restless that you have been moving around a lot more than usual: Not at all 9. Thoughts that you would be better off , or of hurting yourself in some way: Not at all Total Score: 0 Self-Efficacy 90-Day Re-eval Assessment We would like to know how confident you are in doing certain activities. Please select your confidence level for:: Select your confidence level for the following using the scale 1-10 where 1 is not at all confident and 10 is totally confident. Your score is the average of all 6 responses. Fatigue: How confident are you that you can keep the fatigue caused by your disease from interfering with the things you want to do? Select Number: 10 Physical Discomfort or Pain: How confident are you that you can keep the physical discomfort or pain of your disease from interfering with the things you want to do? Select Number: 10 Emotional Distress: How confident are you that you can keep the emotional distress caused by your disease from interfering with the things you want to do? Select Number: 10 Other Symptoms or Health Problems: How confident are you that you can keep other symptoms or health problems from interfering with the things you want to do? Select Number: 10 Different Tasks and Activities: How confident are you that you can do the different tasks and activities needed to manage your health condition so as to reduce your need to see a doctor? Select Number: 10 Medication: How confident are you that you can do things other than just taking medication to reduce how much your illness affects your everyday life? Select Number: 10 Total Score:: 10
[2019-04-03 09:09] VITALS: BP 118/70; BP 130/74; BMI 34.2
== END 2019-04-25 23:59 ==
LOC: CR 13:00
PROVIDERS: Family Provider Family Medicine; PCP Family Medicine; Referring Provider Internal Medicine Cardiovascular Disease; Visit Provider Internal Medicine Cardiovascular Disease
DX: I25.10 Atherosclerotic heart disease of native coronary artery without angina pectoris (principal); Z95.1 Presence of aortocoronary bypass graft
CPT/HCPCS: 93798

== ENCOUNTER → 2019-04-15 09:31 | Outpatient (CLI) | payer MEDICARE, OTHER, SELFPAY ==
[2019-02-09 15:27] VITALS: BMI 31.0
[2019-04-03 09:09] VITALS: BMI 34.2
--- NOTE | 2019-04-15 09:33 | ECHOD_ITS ---
Reason For Study: s/p CABG Procedure This was a 2D Doppler, Color Flow transthoracic echocardiogram. Exam performed in department. Left Ventricle Moderately dilated left ventricle. Apical false tendon noted. The estimated ejection fraction is 50 %. Stage 1 diastolic dysfunction. Posterior-Basal: Mildly hypokinetic. Infero-Basal: Mildly hypokinetic. Right Ventricle Normal size and thickness. Normal systolic function. Atria Normal left atrium. Normal right atrium. Normal atrial septum. Mitral Valve The mitral valve is structurally normal. No prolapse or stenosis seen. Trivial mitral valve insufficiency. Tricuspid Valve Normal tricuspid valve. Trivial tricuspid valve insufficiency. Right ventricular systolic pressure estimated to be 18 mmHg. Aortic Valve Trisinus/trileaflet aortic valve. Mild diffuse aortic valve thickening. Pulmonic Valve Normal pulmonic valve. Great Vessels Normal aortic root. Normal arch. Normal inferior vena cava. Inferior vena cava collapse with sniff. Pericardium/Pleural No pericardial effusion. MMode/2D Measurements & Calculations LVIDd: 5.5 cm IVSd: 1.1 cm Ao root diam: 2.6 cm LVIDs: 4.6 cm LVPWd: 0.95 cm RVDd: 4.0 cm FS: 15.7 % LAV(MOD-bp): 49.5 ml LA A4 area: 15.2 cm2 LA dimension(2D): 5.0 cm LAV(MOD-bp) Indexed: 23.7 ml/m2 LAV(MOD-sp2): 60.8 ml LAV(MOD-sp4): 39.7 ml RA A4 area: 8.1 cm2 Doppler Measurements & Calculations MV E max cornelio: 53.2 cm/sec Lat Peak E' Cornelio: 10.3 cm/sec Med Peak E' Cornelio: 4.1 cm/sec MV A max cornelio: 61.5 cm/sec E/E' lat: 5.2 E/E' med: 12.9 MV E/A: 0.87 Ao V2 max: 105.7 cm/sec LV V1 max: 76.6 cm/sec PA V2 max: 78.1 cm/sec Ao max P.5 mmHg LV V1 max P.3 mmHg Ao V2 mean: 79.7 cm/sec Ao mean P.7 mmHg Ao V2 VTI: 24.1 cm TR max cornelio: 192.0 cm/sec TR max P.7 mmHg Interpretation Summary Moderately dilated left ventricle. The estimated ejection fraction is 50 %. Stage 1 diastolic dysfunction. Trivial mitral valve insufficiency. Trivial tricuspid valve insufficiency. Right ventricular systolic pressure estimated to be 18 mmHg. Compared to echo report dated 10/23/2018, no appreciable changes noted. Ordering Physician: Tyler Sena Referring Physician: Miguel Love Performed By: Mayra Calero RDCS, RVT
== END ==
PROVIDERS: PCP Family Medicine; Referring Provider Internal Medicine Cardiovascular Disease; Visit Provider Internal Medicine Cardiovascular Disease
DX: I25.10 Atherosclerotic heart disease of native coronary artery without angina pectoris (principal); E78.00 Pure hypercholesterolemia, unspecified; I48.4 Atypical atrial flutter
CPT/HCPCS: 93306

== ENCOUNTER → 2019-04-17 16:26 | Outpatient (CLI) | payer MEDICARE, OTHER, SELFPAY ==
[2019-02-09 15:27] VITALS: BMI 31.0
[2019-04-03 09:09] VITALS: BMI 34.2
--- NOTE | 2019-04-17 16:34 | MRI_ITS ---
STUDY: MRI BRAIN WITH AND WITHOUT CONTRAST REASON FOR EXAM: Male, 68 years old. H/A, prior intracranial hematoma APRIL 2018 TECHNIQUE: Standardized multiplanar fat and water weighted pulse sequences were obtained. 19ML Dotarem via IV was administered for the contrast portion of the examination. COMPARISON: CT of the head dated March 13, 2019 and May 22, 2018 FINDINGS: Normal size of the ventricles and extra-axial spaces for the patient''s age. Normal white matter tracts of the supratentorial brain. There are bilateral extra-axial collection along the occipital convexities (FLAIR image #16 series 7) with enhancement of the overlying dura, consistent with minimal (2 mm thick on the right and 3 mm thick on the left) chronic subdural hematoma. Normal bilateral basal ganglia. Normal thalami. There is no extra-axial fluid accumulation. Normal flow voids within the major intracranial circulation suggesting patency by spin echo criteria. Normal venous enhancement. There is no enhancing intra-axial or extra-axial abnormality. Normal sella turcica, pituitary gland, infundibular stalk, optic chiasm and hypothalamus. Normal tectal plate and pineal gland. Normal midbrain, kranthi and medulla. Normal cerebellum. Normal basal cisterns. Normal bilateral temporal bones. MRI/Brain W/WO Contrast IMPRESSION: Minimal chronic occipital subdural hematomas Electronically Signed: Zeny Neves MD at 15:56 EST Tel , Service support ,
[2019-04-17 17:00] LABS: CREATININE FINGERSTICK 1.4 mg/dL (0.70-1.30)
== END ==
PROVIDERS: PCP Family Medicine; Referring Provider Psychiatry & Neurology Neurology; Visit Provider Psychiatry & Neurology Neurology
DX: S06.890D Other specified intracranial injury without loss of consciousness, subsequent encounter (principal); X58.XXXA Exposure to other specified factors, initial encounter; Y93.9 Activity, unspecified; Y92.9 Unspecified place or not applicable; Y99.9 Unspecified external cause status
CPT/HCPCS: 70553; A9575

== ENCOUNTER → 2019-10-06 14:21 | Outpatient (CLI) | payer MEDICARE, OTHER, SELFPAY ==
[2019-04-03 09:09] VITALS: BMI 34.2
[2019-05-28 09:26] VITALS: BMI 34.8
--- NOTE | 2019-10-06 14:23 | CT_ITS ---
STUDY: CTA OF THE BRAIN REASON FOR EXAM: Male, 68 years old. HX OF SUBDURAL HEMATOMA WITH PRIOR SURGERY. Abnormal MR. Pt having balance issues. Hx of HTN and diabetes-both rx controlled. RADIATION DOSAGE (If Supplied By Facility): CTDIvol = ( 62.18 ) mGy, DLP = ( 2437.37 ) mGycm TECHNIQUE: CT angiography was performed with a multi-detector CT scanner. Data acquisition was obtained from the skull base through the vertex following intravenous administration of IV 100ML ISOVUE 370. MIP images were reconstructed from the axial data set. Post-processing of the angiographic images was performed, with multiplanar reformation and 3D reconstruction. Individualized dose optimization techniques were used for this CT. COMPARISON: Comparison is made with prior study of 05/05/2018. FINDINGS: There is evidence of acute subdural hematoma overlying the superior aspect of the right frontal parietal occipital lobe. There is also evidence of a [id number] sized left subacute and acute subdural hematoma overlying the left frontal parietal and occipital lobes. Mucosal thickening of the posterior aspect of the right ethmoid sinus. Prior louann holes overlying the right frontal bone. Normal bilateral petrous carotid arteries. There is calcified plaque formation of the right cavernous carotid artery, without a cross-sectional luminal stenosis. There is calcified plaque formation of the left cavernous carotid artery, without a cross-sectional luminal stenosis. Normal right A1 segments of the anterior cerebral artery. Normal left A1 segments of the anterior cerebral artery. Normal intact anterior communicating artery (ACOM). Normal bilateral A2 segments of the anterior cerebral arteries. Normal right M1 and M2 segments of the middle cerebral arteries, with a normal M1 bifurcation. Normal left M1 and M2 segments of the middle cerebral arteries, with a normal M1 bifurcation. Normal right posterior communicating artery (PCOM). Normal left posterior communicating artery (PCOM). Normal bilateral vertebral arteries. Normal basilar artery with a normal basilar bifurcation. The visualized bilateral superior cerebellar (SCA) arteries are normal. Normal bilateral P1, P2 and visualized P3 segments of the posterior cerebral arteries. There is no demonstrated aneurysm of the kashia of [place]. CT/CTA Head W/WO Contrast IMPRESSION: Bilateral acute on subacute subdural hematomas as described. Electronically Signed: Ant Lopez, at 15:14 EDT , Service support ,
[2019-10-06 15:13] LABS: CREATININE FINGERSTICK 1.05 mg/dL (0.70-1.30); EGFR FINGERSTICK > 60 mL/min (>60)
== END ==
PROVIDERS: PCP Family Medicine
DX: S06.5X1A Traumatic subdural hemorrhage with loss of consciousness of 30 minutes or less, initial encounter (principal)
CPT/HCPCS: 70496; Q9967

== ENCOUNTER → 2019-10-28 13:50 | Outpatient (CLI) | payer MEDICARE, OTHER, SELFPAY ==
[2019-04-03 09:09] VITALS: BMI 34.2
[2019-05-28 09:26] VITALS: BMI 34.8
--- NOTE | 2019-10-28 13:52 | CT_ITS ---
STUDY: CT BRAIN WITHOUT CONTRAST REASON FOR EXAM: Male, 68 years old. PT STATED F/U TO SUBDURAL HEMORRHAGE RADIATION DOSAGE (If Supplied By Facility): CTDIvol = ( 44.99 ) mGy, DLP = ( 863.60 ) mGycm TECHNIQUE: Transaxial CT imaging of the brain was performed without administration of intravenous contrast material. Individualized dose optimization techniques were used for this CT. COMPARISON: Comparison is made with prior examination is generally 2019. FINDINGS: Normal soft tissue structures. And is of prior right-sided louann holes. There is evidence of a small acute subdural hematoma overlying the right frontal parietal lobes. There is also evidence of a complex acute on subacute left subdural hematoma overlying the left frontal parieto-occipital lobes. The widest measurement of the left subdural collection measures 2.3 cm. The largest dimension of the right acute subdural hematoma measures 1.5 cm. There is a midline shift from left to right of 8.2 mm. Normal size ventricles and extra-axial spaces for the patient''s age. Normal white matter tracts of the cerebral hemispheres. Normal basal ganglia and thalami. Normal brainstem. Normal cerebellum. There are no findings of an acute ischemic infarction. Atherosclerotic plaque formation of the vertebral arteries and cavernous portions of the internal carotid arteries bilaterally. Normal visualized paranasal sinuses. CT/Brain/Head without Contrast IMPRESSION: Right sided acute subdural hematoma as well as an acute on subacute left-sided subdural hematoma as described. There is a midline shift from left to right measuring 8.2 mm. Electronically Signed: Ant Lopez, at 14:48 EDT , Service support ,
== END ==
PROVIDERS: PCP Family Medicine
DX: S06.5X9A Traumatic subdural hemorrhage with loss of consciousness of unspecified duration, initial encounter (principal)
CPT/HCPCS: 70450

== ENCOUNTER → 2020-05-25 15:23 | Outpatient (CLI) | payer MEDICARE, OTHER, SELFPAY ==
[2019-04-03 09:09] VITALS: BMI 34.2
[2020-05-25 14:28] VITALS: BMI 36.0
--- NOTE | 2020-05-25 15:32 | RAD_ITS ---
STUDY: X-RAY CHEST REASON FOR EXAM: Male, 69 years old. Dyspnea on exertion . Short of breath. TECHNIQUE: PA and lateral views of the chest. COMPARISON: Comparison is made with prior study dated 10/22/2018. FINDINGS: The lungs are clear and expanded. There is no demonstrated pleural abnormality. Sternal cerclage wires and vascular clips are present from a prior sternotomy and coronary artery bypass graft procedure (CABG). Normal mediastinum and malcolm. Normal visualized pulmonary arteries. Normal visualized aortic arch and descending thoracic aorta. Normal visualized thoracic spine. Normal visualized ribs, clavicles, and shoulders. There is no demonstrated abnormality of the visualized soft tissue structures of the upper abdomen. RAD/Chest PA and Lateral IMPRESSION: Stable examination. No acute abnormality is seen. Electronically Signed: Ant Lopez MD at 9:50 EDT , Service support ,
== END ==
PROVIDERS: PCP Family Medicine; Referring Provider Internal Medicine Cardiovascular Disease; Visit Provider Internal Medicine Cardiovascular Disease
DX: I25.10 Atherosclerotic heart disease of native coronary artery without angina pectoris (principal); E78.00 Pure hypercholesterolemia, unspecified; I10 Essential (primary) hypertension; I97.89 Other postprocedural complications and disorders of the circulatory system, not elsewhere classified; I48.91 Unspecified atrial fibrillation; R06.00 Dyspnea, unspecified; Z95.5 Presence of coronary angioplasty implant and graft; Z95.1 Presence of aortocoronary bypass graft
CPT/HCPCS: 71046

== ENCOUNTER → 2020-06-07 06:26 | Outpatient (CLI) | payer MEDICARE, OTHER, SELFPAY ==
[2019-04-03 09:09] VITALS: BMI 34.2
[2020-05-25 14:28] VITALS: BMI 36.0
--- NOTE | 2020-06-07 06:31 | ECHOCS_ITS ---
Reason For Study: Dyspnea/SOB Procedure This was a 2D Doppler, Color Flow transthoracic echocardiogram. The study was technically difficult. Contrast injection was performed. Bubble Study performed. Exam performed in department. Left Ventricle Normal LV size. Moderate concentric left ventricular hypertrophy. Mild to moderate segmental systolic dysfunction (see wall motion). The estimated ejection fraction is 40 %. Diastolic function is indeterminate. Posterior-Basal: Hypokinetic. Infero-Basal: Hypokinetic. Basal inferoseptal: Hypokinetic. Mid-Anterior : Hypokinetic. Mid-Lateral : Hypokinetic. Mid-Posterior: Hypokinetic. Mid- Inferior: Hypokinetic. Mid-inferoseptal : Hypokinetic. [place] : Hypokinetic. Right Ventricle Normal RV size. Normal systolic function. Atria The left atrium is mildly enlarged. Normal right atrium. Hypermobile atrial septum. No doppler evidence for ASD. Bubble contrast study negative for right to left interatrial shunt. Mitral Valve There is no mitral annular calcification. Normal mitral valve. Trivial mitral valve insufficiency. Tricuspid Valve Normal tricuspid valve. Trivial tricuspid valve insufficiency. Unable to estimate RV systolic pressure/pulmonary artery pressure due to technically difficult study. Aortic Valve Trisinus/trileaflet aortic valve. Mild focal aortic valve calcification. Pulmonic Valve The pulmonic valve is not well visualized. Great Vessels The aortic valve is not well visualized. Pericardium/Pleural No pericardial effusion. Medication 22 gauge I.V. with prn adaptor inserted into right arm. Diluted definity 3ml given slow IV push to enhance endocardial definition. Performed a rapid injection of agitated mix of 9 cc saline and 1cc air to assess for atrial septal defect. MMode/2D Measurements & Calculations LVIDd: 4.7 cm IVSd: 1.4 cm LA dimension: 4.3 cm LVIDs: 4.1 cm LVPWd: 1.6 cm FS: 13.7 % LAV(MOD-bp): 52.6 ml LA A4 area: 16.5 cm2 RA A4 area: 14.7 cm2 LAV(MOD-bp) Indexed: 25.1 ml/m2 LAV(MOD-sp2): 61.1 ml LAV(MOD-sp4): 47.5 ml Time Measurements MV dec time: 0.28 sec Doppler Measurements & Calculations MV E max cornelio: 64.3 cm/sec Lat Peak E' Cornelio: 12.6 cm/sec Med Peak E' Cornelio: 3.5 cm/sec MV A max cornelio: 56.1 cm/sec E/E' lat: 5.1 E/E' med: 18.5 MV E/A: 1.1 MV V2 max: 70.5 cm/sec MV P1/2t max cornelio: 68.7 cm/sec Ao V2 max: 102.5 cm/sec MV max P.0 mmHg MV P1/2t: 111.6 msec Ao max P.2 mmHg MV V2 mean: 42.2 cm/sec MV dec slope: 180.4 cm/sec2 MV mean P.83 mmHg MV V2 VTI: 22.9 cm MVA(P1/2t): 2.0 cm2 LV V1 max: 83.8 cm/sec PA V2 max: 97.3 cm/sec LV V1 max P.8 mmHg ECHO/Echo Complete W/ Contrast Interpretation Summary The study was technically difficult. Contrast injection was performed. Mild to moderate segmental systolic dysfunction (see wall motion). The estimated ejection fraction is 40 %. Moderate concentric left ventricular hypertrophy. The left atrium is mildly enlarged. Hypermobile atrial septum. Trivial mitral valve insufficiency. Trivial tricuspid valve insufficiency. Mild focal aortic valve calcification. Unable to estimate RV systolic pressure/pulmonary artery pressure due to techni joan difficult study. Diastolic function is indeterminate. Bubble contrast study negative for right to left interatrial shunt. Ordering Physician: Sony Escalera Referring Physician: Miguel Love Performed By: Sahil Fong RCS
--- NOTE | 2020-06-07 09:09 | US_ITS ---
STUDY: THYROID ULTRASOUND REASON FOR EXAM: Male, 69 years old. HYPERTHYROIDISM TECHNIQUE: Ultrasound evaluation of the thyroid was performed with real-time and static garcia-scale imaging. COMPARISON: None. FINDINGS: RIGHT LOBE: The right lobe of the thyroid gland measures 4.8 cm x 2.3 cm x 1.6 cm. There is a heterogeneous echotexture. There is a 2.7 cm x 1.9 cm x 1.6 cm solid nodule in the midpole. Increased intra-abdominal nodular vascularity. Biopsy recommended. LEFT LOBE: The left lobe of the thyroid gland measures 4.9 cm x 1.9 cm x 2.1 cm. There is a heterogeneous echotexture. There is a 3 cm x 1.6 cm x 1.8 cm solid nodule in the midpole of the left lobe. There is evidence of increased nodular vascularity. Biopsy is recommended. ISTHMUS: The isthmus measures 2 mm. The regional lymph nodes are normal. US/Thyroid IMPRESSION: Bilateral solid thyroid nodules as described. Biopsy recommended. Electronically Signed: Ant Lopez MD at 12:36 EDT , Service support ,
--- NOTE | 2020-06-07 09:49 | STRESSREP_ITS ---
Stress Test Report Date: 06-07-2020 Procedure: Pharmacologic stress nuclear imaging study Indications: This of breath/dyspnea on exertion; CAD; PCI; CABG; postoperative atrial fibrillation/flutter Consent: Per the patient Procedure: The patient underwent pharmacologic (Regadenoson 0.4mg ) evaluation with a peak heart rate of 100 beats per minute (65%predicted maximal heart rate) and a peak blood pressure of 132/78 mmHg. The baseline ECG demonstrated sinus rhythm; poor R wave progression; nonspecific ST/T wave abnormality. The peak pharmacologic ECG demonstrated no obvious ECG changes. There were premature or aberrantly conducted complexes and PVCs and a ventricular triplet pretest and occasional premature or aberrantly conducted complexes and PVCs and a ventricular triplet/quadruplet in recovery and an episode of aberrant conduction versus an idioventricular rhythm during recovery with spontaneous resolution to baseline. There was no complaint of chest discomfort during pharmacologic infusion or recovery. The examination was discontinued secondary to completion of protocol. Impression: 1. Pharmacologic (Regadenoson) evaluation 2. Peak pharmacologic ECG with no obvious ECG changes. 3. There were premature or aberrantly conducted complexes and PVCs and a ventricular triplet pretest and occasional premature or aberrantly conducted complexes and PVCs and a ventricular triplet/quadruplet in recovery and an episode of aberrant conduction versus an idioventricular rhythm during recovery with spontaneous resolution to baseline.. 4. Nuclear images pending Myocardial perfusion imaging study: Technique: The patient was injected with 14.3 millicuries of technetium 99m Cardiolite and subsequently rest SPECT Cardiolite nuclear imaging was obtained in the horizontal long, vertical long, and short axis views. The patient underwent pharmacologic (Regadenoson) evaluation with a peak heart rate of 100 beats per minute (65% percent predicted maximal heart rate) and a peak blood pressure of 132/78 mmHg. The patient was injected with 44.7 millicuries of technetium 99m Cardiolite and subsequently stress SPECT Cardiolite nuclear imaging was obtained in the horizontal long, vertical long, and short axis views. A gated Cardiolite study at peak stress was obtained. Interpretation: Rest and stress SPECT Cardiolite nuclear imaging status post realignment, normalization, and attenuation correction demonstrate the appearance of diminished absence of myocardial perfusion/tracer uptake in portions of the basal inferoseptal/basal inferior segments extending to the mid inferoseptal/mid inferior segments which status post stress appear to be somewhat more prominent in the mid inferior segments. There is diminished end systolic thickening and brightening in the aforementioned areas. The gated Cardiolite study demonstrates diminished myocardial thickening and inward wall motion in the aforementioned areas. The reported LVEF is 47%. Impression: 1. Rest and stress SPECT Cardiolite nuclear imaging demonstrate myocardial perfusion changes appearing compatible with an area of previous myocardial injury/infarction with post stress myocardial perfusion changes appearing compatible with an area of luz-infarct related myocardial ischemia (mid inferior segments). 2. The gated Cardiolite study reports an LVEF of 47%. This note was generated with [employer] software. It may contain incorrect words, spelling, and punctuation that were not noted in checking the note before signing.
== END ==
PROVIDERS: PCP Family Medicine; Visit Provider Internal Medicine Cardiovascular Disease
DX: E05.90 Thyrotoxicosis, unspecified without thyrotoxic crisis or storm (principal); I25.10 Atherosclerotic heart disease of native coronary artery without angina pectoris; I10 Essential (primary) hypertension; E78.00 Pure hypercholesterolemia, unspecified; I97.89 Other postprocedural complications and disorders of the circulatory system, not elsewhere classified; I48.91 Unspecified atrial fibrillation; R06.00 Dyspnea, unspecified; Z95.1 Presence of aortocoronary bypass graft; Z95.5 Presence of coronary angioplasty implant and graft
CPT/HCPCS: 76536; 78452; 93017; 93306; A9500; Q9957; A4216; C8929; J2785

== ENCOUNTER 2020-06-13 18:44 | Inpatient (IN) | payer MEDICARE, OTHER, SELFPAY ==
[2020-06-09 15:37] VITALS: BMI 34.2; BMI 36.0
[2020-06-13 18:45] VITALS: BP 154/87; PULSE 71; RESP 16; TEMP 36.4; O2SAT 97
--- NOTE | 2020-06-13 19:06 | EKG12_ITS ---
Test Reason : CP Blood Pressure : / mmHG Vent. Rate : 074 BPM Atrial Rate : 074 BPM P-R Int : 160 ms QRS Dur : 098 ms QT Int : 422 ms P-R-T Axes : 075 -10 -37 degrees QTc Int : 468 ms Sinus rhythm with frequent and consecutive Premature ventricular complexes Inferior infarct , age undetermined Abnormal ECG Confirmed by FILEMON BOLIVAR, MERVAT ([id number]), telegraph editor JAMES LEAL ([id number]) on 06/15/2020 1:03:55 PM Referred By: TAYLOR Confirmed By:MERVAT COLBERT MD
--- NOTE | 2020-06-13 19:07 | ED.VIS.GEN ---
History of Present Illness Chief Complaint: Chest Pain Informant: Patient Narrative: 69-year-old male presenting with chest pain. He states is left-sided and nonradiating. It feels like pressure. Its been intermittent since 1630 today. Patient has a history of cardiac disease, cardiac stents, CABG. Patient states he quit smoking a number of years ago. Patient states that he used to be a patient of Dr. Sena but now is a patient of Dr. Escalera. He states that he had an abnormal stress test and is currently awaiting instructions from Dr. Escalera. - Past Medical History (1) Subdural hematoma, acute Status: Chronic (2) Atherosclerotic heart disease of [place] coronary artery without angina pectoris Status: Chronic Comment: LAURA (2.5X20 [employer]) to RCA; pt to have staged procedure for PCI of ostial PDA;CABG X 3 [facility] 11/06/18 Dr. Mayor JUÁREZ to mid LAD, SVG to OM1, SVG to right PDA (3) Atrial flutter Status: Chronic (4) Essential hypertension Status: Chronic (5) History of acute inferior wall MT Status: Chronic Comment: Besides the inferior MT 12/23/17, patient apparently had MT's and stents in 2012 and in 2014 (6) History of coronary artery bypass graft Status: Chronic Comment: CABG X [address] [facility] [address] Mayor JUÁREZ to mid LAD, SVG to OM1, SVG to right PDA Past Medical History - Allergies and Home Meds Allergies/Adverse Reactions: Allergies lisinopril Adverse Reaction (Intermediate, Verified 06/13/20 18:47) COUGH Prior records reviewed: Yes Past Medical History: - - Reviewed in problem list Surgical History: - Lives: Spouse/ Significant Other Smoking Status: Former smoker Alcohol: None Drugs: None - Family History Maternal Family History: Family History (Last Reviewed 05/25/20 @ 14:31 by Sachi Horner) Father Negative for ASCVD Mother Negative for ASCVD Family History: Reports: - - Patient denies any marked maternal or paternal family history of heart disease, diabetes, cancer. Paternal Family History: Family History (Last Reviewed 05/25/20 @ 14:31 by Sachi Horner) Father Negative for ASCVD Mother Negative for ASCVD Family History: Reports: - - Patient denies any marked maternal or paternal family history of heart disease, diabetes, cancer. Review of Systems General: Denies: Chills, Fever, Sweats Eyes: Denies: Visual changes - bilaterally, Diplopia ENT: Denies: Rhinorrhea, Sore throat Cardiovascular: Reports: Chest pain. Denies: Palpitations, Heart racing Respiratory: Denies: Dyspnea, Cough Gastrointestinal: Denies: Abdominal pain, Nausea, Vomiting, Diarrhea, Melena, Hematochezia Genitourinary: Denies: Dysuria, Hematuria, Frequency Musculoskeletal: Denies: Back pain, Extremity Pain Skin: Denies: Rash, Wounds Neurological: Denies: Headache, Weakness, Numbness Psych: Denies: Depression, Anxiety, Suicidal thoughts, Suicidal ideations, -, - Physical Exam Vital Signs/Narrative: Vital Signs Temp Pulse Resp BP Pulse Ox 06/13/20 18:45 97.5 F L 71 16 154/87 H 97 Inital Vital Signs reviewed: Yes General: Obese, No Acute Distress Head: Normocephalic, Atraumatic Eyes: Perrl, EOMI ENT: Moist mucous membranes, No rhinorrhea Cardiovascular: Regular rate, Regular rhythm Respiratory: No distress, CTA bilaterally Abdomen: Soft, Nontender, Nondistended Extremities: Nontender, No edema Skin: Normal color, No rash. Negative for: Cyanosis, Diaphoresis, Jaundice Neurological: Alert, Oriented x3, Cranial nerves II-XII grossly intact Psychological: Normal affect, Normal Mood Diagnostic/Tx/Re-eval Clinical Impression(s) from Imaging Studies Chest X-Ray 06/13/20 19:23 IMPRESSION: No definite acute or significant abnormality seen. Electronically Signed: Alfredo Ham MD at 20:06 EDT , Service support , Laboratory Data 06/13/20 06/13/20 06/13/20 18:55 18:55 18:55 WBC 7.0 RBC 5.48 Hgb 15.4 Hct 48.5 MCV 88.5 MCH 28.1 MCHC 31.8 L RDW Std Deviation 45.7 H RDW Coeff of Kera 14.3 Plt Count 188 MPV 10.6 Immature Gran % (Auto) 0.600 Neut % (Auto) 66.8 Lymph % (Auto) 21.6 [place] % (Auto) 8.8 Eos % (Auto) 1.6 Baso % (Auto) 0.6 Absolute Neuts (auto) 4.7 Absolute Lymphs (auto) 1.52 Nucleated RBC % 0 D-Dimer Quant (PE/DVT) 0.37 Sodium 138 Potassium 4.1 Chloride 106 Carbon Dioxide 26.0 Anion Gap 6 BUN 11 Creatinine 1.31 H Estim Creat Clear Calc 80.41 Est GFR (MDRD) Af Amer 70 Est GFR (MDRD) Non-Af 58 L BUN/Creatinine Ratio 8.4 L Glucose 156 H Calcium 9.0 Troponin I < 0.015 - Medical Decision Making 69-year-old male presenting with chest pain. He states it started about 1630. Patient has significant medical history of atrial flutter, hypertension, CAD with stents, MT, diabetes type 2. Heart score is 5. Patient's EKG performed on arrival shows a sinus rhythm at 74 bpm without signs of ischemic changes. There is a PVC. This is interpreted by myself. Chest x-ray is interpreted by myself shows no acute cardiopulmonary process. H&H are stable. Electrolytes are normal. Renal function is near baseline. Patient's troponin is negative. D-dimer is negative. I did review the medical record and did find that he has an abnormal stress test from the . 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 It is clear that he does not want to have aspirin or anticoagulation due to history of subdural. For this reason aspirin was refused by the patient. Patient was discussed with Dr. Cardona and Dr. Davidson. He will be admitted for chest pain and possibly cardiac catheterization. Patient stable on admission. Impression: 1. Chest pain ED Disposition - Plan for ED Patient:
[2020-06-13 19:15] VITALS: O2SAT 97
--- NOTE | 2020-06-13 19:23 | RAD_ITS ---
STUDY: X-RAY CHEST REASON FOR EXAM: Male, 69 years old. chest pain TECHNIQUE: Single AP portable view of the chest. COMPARISON: 05/25/2020 FINDINGS: The lungs are clear and expanded. There is no demonstrated pleural abnormality. Normal size heart. Previous CABG. Normal mediastinum and malcolm. Normal visualized pulmonary arteries. Normal visualized aortic arch and descending thoracic aorta. Normal visualized thoracic spine. Normal visualized ribs, clavicles, and shoulders. There is no demonstrated abnormality of the visualized soft tissue structures of the upper abdomen. RAD/Chest 1 View (Portable) IMPRESSION: No definite acute or significant abnormality seen. Electronically Signed: Alfredo Ham MD at 20:06 EDT , Service support ,
[2020-06-13 19:31] LABS: Absolute Lymphocyte Count 1.52 X10^3/uL (0.83-4.51); Absolute Neutrophil Count 4.7 X10^3/uL (2.0-7.7); Basophil# 0.04 X10^3/uL; Basophil% 0.6 % (0-1); Eosinophil# 0.11 X10^3/uL; Eosinophils% 1.6 % (0-5); Hematocrit 48.5 % (40-54); Hemoglobin 15.4 g/dL (13.0-16.5); Lymphocyte # 1.52 X10^3/ul (0.83-4.51); Lymphocyte % 21.6 % (19-41); Mean Corp Hgb Conc 31.8 g/dL (32-36); Mean Corpuscular Hgb 28.1 pg (27.0-32.0); Mean Corpuscular Volume 88.5 fL (80-94); Mean Platelet Vol. 10.6 fl (6.2-12.0); Monocyte# 0.62 X10^3/uL; Monocyte% 8.8 % (0-10); NRBC Flagged by Analyzer 0 % (0-5); Neutrophil # 4.71 X10^3/uL (2.7-7.7); Neutrophil % 66.8 % (47-70); Platelet Count 188 K/mm3 (150-450); RBC Distribution Width CV 14.3 % (11.6-14.6); RBC Distribution Width SD 45.7 fl (35.1-43.9); Red Blood Count 5.48 M/mm3 (4.6-6.2)
[2020-06-13 19:38] LABS: D-Dimer Quantitative (DVT/PE) 0.37 FEU/ug/m (0.27-0.49)
[2020-06-13 19:44] LABS: Anion Gap 6 (5-15); BUN 11 mg/dL (7-18); BUN/Creat Ratio 8.4 RATIO (10-20); Chloride 106 mmol/L (98-107); Creatinine, Serum 1.31 mg/dL (0.70-1.30); EST Glomerular Filtration Rate 58 mL/min (>60); Est Glom Filt Rate - Afr Amer 70 mL/min (>60); Estimated Creatinine Clearance 80.41 ml/min; Glucose 156 mg/dL (74-106); Potassium 4.1 mmol/L (3.5-5.1); Sodium Level 138 mmol/L (136-145)
[2020-06-13 20:14] VITALS: BP 126/77; PULSE 61; RESP 18; O2SAT 96
--- NOTE | 2020-06-13 22:53 | PCM.HP.STD ---
Problem List (1) Chest pain Status: Acute (2) Pure hypercholesterolemia Status: Chronic (3) Type 2 diabetes mellitus Status: Chronic (4) History of coronary artery bypass graft Status: Chronic Comment: CABG X [address] [facility] [address] Mayor JUÁREZ to mid LAD, SVG to OM1, SVG to right PDA (5) Essential hypertension Status: Chronic (6) Atrial flutter Status: Chronic Qualifiers: Atrial flutter type: atypical Qualified Code(s): I48.4 - Atypical atrial flutter (7) Stented coronary artery Status: Chronic Comment: Patient has had multiple stents in 2012 and 2014 but we do not have those records. 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 Mayor JUÁREZ to mid LAD, SVG to OM1, SVG to right PDA (9) History of acute inferior wall WY Status: Chronic Comment: Besides the inferior WY 12/23/17, patient apparently had WY's and stents in 2012 and in 2014 History of Present Illness Date of Admission: 06/13/20 Chief Complaint: chest pain The patient is a 69 year old patient with a significant past medical history of coronary artery disease status post CABG, stenting who presents to the emergency room with chest pain. On June 07 he had an abnormal stress test and was reportedly scheduled to see Dr. Escalera to discuss the next step. He also has a history of 2 subdural hematomas and has been told not to take aspirin for this reason. He is scheduled to see a neurologist in July to determine if it is safe to restart antiplatelet therapy. His chest pain began at 430 this afternoon as he was going to go to dinner and it was a sharp pain on the left side which took his breath away and subsequently resolved. The pain is recurred several times since then and relented. Due to chest pain and recent abnormal stress test patient will be admitted and enzymes cycled. The patient will be made n.p.o. and cardiac consult for the morning to determine when cardiac catheterization is appropriate. Past Medical History Past Medical History (Chronic Problems): Chronic Problems (Last Reviewed 05/25/20 @ 14:31 by Sachi Horner) Pure hypercholesterolemia (Chronic) Subdural hematoma, acute (Chronic) Type 2 diabetes mellitus (Chronic) History of coronary artery bypass graft (Chronic ~11/23/18) CABG X [address] [facility] [address] Mayor JUÁREZ to mid LAD, SVG to OM1, SVG to right PDA Essential hypertension (Chronic) Atrial flutter (Chronic) Bradycardia (Chronic) Stented coronary artery (Chronic 01/22/18) Patient has had multiple stents in 2012 and 2014 but we do not have those records. 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 Mayor JUÁREZ to mid LAD, SVG to OM1, SVG to right PDA History of acute inferior wall WY (Chronic) Onset Date: 12/23/17 I25.2 Besides the inferior WY 12/23/17, patient apparently had WY's and stents in 2012 and in 2014 Balance problem R26.89 Chest pain R07.9 Diarrhea R19.7 Fatigue R53.83 Heart disease I51.9 History of hypertension Z86.79 SOB (shortness of breath) R06.02 Stroke I63.9 headaches Diabetes mellitus, type II E11.9 GERD (gastroesophageal reflux disease) K21.9 Subdural hematoma Onset Date: 05/05/18 S06.5X9A Acute sinusitis, unspecified J01.90 Bronchitis J40 Allergies lisinopril Adverse Reaction (Intermediate, Verified 06/13/20 18:47) COUGH Home Medications: Ambulatory Orders Medication Instructions Recorded Atorvastatin Calcium [Lipitor] 80 mg PO DAILY 12/23/17 Lansoprazole 15 mg PO DAILY 12/23/17 cholecalciferol (vitamin D3) 50 2,000 unit PO DAILY 12/11/18 mcg (2,000 unit) capsule empagliflozin 10 mg tablet 10 mg PO DAILY 05/28/19 amlodipine 5 mg tablet 5 mg PO DAILY 12/07/19 carvedilol 6.25 mg tablet 3.125 mg PO BID 05/25/20 insulin aspart U-100 100 unit/mL 10 unit SC TID ml 05/25/20 (3 mL) subcutaneous pen insulin glargine 100 unit/mL (3 25 unit SC DAILY ml 05/25/20 mL) subcutaneous pen lactobacillus combination no.9 4 4,000 mmu cells PO DAILY 05/25/20 billion cell capsule Methimazole [Tapazole] 5 mg PO BID 06/13/20 Surgical History: Surgical History (Last Reviewed 05/25/20 @ 14:31 by Sachi Horner) History of coronary artery bypass graft (Chronic) Onset Date: ~11/23/18 Z95.1 CABG X [address] [facility] [address] Mayor JUÁREZ to mid LAD, SVG to OM1, SVG to right PDA Stented coronary artery (Chronic) Onset Date: 01/22/18 Z95.5 Patient has had multiple stents in 2012 and 2014 but we do not have those records. LAURA (2.5X20 [employer]) to mid RCA 12/23/17; LAURA (2.25 X 12 [employer]) to distal RCA/proximal PDA, as well as POBA to ostial PL Branch with 2.0 X12 balloon 01/22/18 History of appendectomy Z90.49 History of louann hole surgery Onset Date: 05/05/18 Z98.890 Right louann hole drainage of subdural hematoma, with placement of subdural gravity drain per Dr. 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 I would recommend CABG to DIAG, LAD, and PDA +/- bypass to OM#1. Pt wishes to go to [facility] where he had his sub dural hematoma drained in 04/2017. Will make arrangements to be seen as outpatient with Dr Mann or Dr Cardozo. Per [facility] 10/24/18 Surgical History: - Psychiatric History: Depression Lives: Spouse/ Significant Other Smoking Status: Former smoker Alcohol: None Drugs: None - *Family History Maternal Family History: Family History (Last Reviewed 05/25/20 @ 14:31 by Sachi Horner) Father Negative for ASCVD Mother Negative for ASCVD History Items: - - Patient denies any marked maternal or paternal family history of heart disease, diabetes, cancer. Paternal Family History: Family History (Last Reviewed 05/25/20 @ 14:31 by Sachi Horner) Father Negative for ASCVD Mother Negative for ASCVD History Items: - - Patient denies any marked maternal or paternal family history of heart disease, diabetes, cancer. Review of Systems Constitutional: Denies: Chills, Fever, Weight Change HEENT: Denies: Head Aches, Sinus Congestion, Sinus Drainage Cardiovascular: Reports: Chest Pain. Denies: Palpitations Respiratory: Denies: Cough, Shortness of breath at rest, Sputum production Gastrointestinal: Denies: Abdominal Pain, Nausea, Vomiting Genitourinary: Denies: Dysuria Musculoskeletal: Denies: Joint Pain, Joint Tenderness Skin: Denies: Rash, Wounds Neurological: Denies: Numbness, Tingling, Focal weakness Psychiatric: Denies: Anxiety, Depression, Homicidal Ideations, Suicidal Ideations Hematologic/ Lymphatic: Denies: Easy Bruising, Easy Bleeding VTE Information - Inpt Only VTE Present on Admission: No VTE Mechan Device Prophylaxis: None VTE Pharm Prophylaxis ordered?: No - Physical Exam Vitals/I&O's: Vital Signs Temp Pulse Resp BP Pulse Ox 97.5 F L 61 18 126/77 H 96 06/13/20 18:45 06/13/20 20:14 06/13/20 20:14 06/13/20 20:14 06/13/20 20:14 Oxygen Delivery Method Room Air Weight: 229 lb 0.964 oz Body Mass Index (BMI) 0.1 General: Alert, Oriented x3, Cooperative HEENT: Atraumatic, Normocephalic Neck: Supple Lungs: Clear to auscultation, Normal air movement Cardiovascular: Regular rate, Normal S1, Normal S2, No murmurs Abdomen: Bowel Sounds Present, Soft Extremities: No edema Skin: No rashes Musculoskeletal: No Tenderness to Palpation of Joints or Extremities Neurological: Neuro grossly intact Psych/Mental Status: Normal Affect, Appropriate Laboratory Results 06/13/20 18:55: WBC 7.0, RBC 5.48, Hgb 15.4, Hct 48.5, MCV 88.5, MCH 28.1, MCHC 31.8 L, RDW Std Deviation 45.7 H, RDW Coeff of Kera 14.3, Plt Count 188, MPV 10.6, Immature Gran % (Auto) 0.600, Neut % (Auto) 66.8, Lymph % (Auto) 21.6, Adams % (Auto) 8.8, Eos % (Auto) 1.6, Baso % (Auto) 0.6, Absolute Neuts (auto) 4.7, Absolute Lymphs (auto) 1.52, Nucleated RBC % 0 06/13/20 18:55: Sodium 138, Potassium 4.1, Chloride 106, Carbon Dioxide 26.0, Anion Gap 6, BUN 11, Creatinine 1.31 H, Estim Creat Clear Calc 80.41, Est GFR (MDRD) Af Amer 70, Est GFR (MDRD) Non-Af 58 L, BUN/Creatinine Ratio 8.4 L, Glucose 156 H, Calcium 9.0, Troponin I < 0.015 06/13/20 18:55: D-Dimer Quant (PE/DVT) 0.37 Assessment/Plan All Active Problems (Last Reviewed 05/25/20 @ 14:31 by Sachi Horner) Chest pain (Acute) Postoperative atrial fibrillation (Acute) STEMI (ST elevation myocardial infarction) (Resolved) Chronic Problems (Last Reviewed 05/25/20 @ 14:31 by Sachi Horner) Pure hypercholesterolemia (Chronic) Subdural hematoma, acute (Chronic) Type 2 diabetes mellitus (Chronic) History of coronary artery bypass graft (Chronic ~11/23/18) CABG X [address] [facility] [address] Mayor JUÁREZ to mid LAD, SVG to OM1, SVG to right PDA Essential hypertension (Chronic) Atrial flutter (Chronic) Bradycardia (Chronic) Stented coronary artery (Chronic 01/22/18) Patient has had multiple stents in 2012 and 2014 but we do not have those records. 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 Mayor JUÁREZ to mid LAD, SVG to OM1, SVG to right PDA History of acute inferior wall WY (Chronic 12/23/17) Besides the inferior WY 12/23/17, patient apparently had WY's and stents in 2012 and in 2014 Plan 1. Chest pain rule out WY?admit patient to progressive care unit, consult Dr. Escalera, make n.p.o. at midnight, cycle cardiac enzymes, morphine oxygen and nitroglycerin per routine we will hold aspirin at this time due to history of intracranial bleeding. 2. Hypertension we will monitor for now while n.p.o. restart oral medications in the morning 3. Diabetes?add siding scale insulin to cover while n.p.o. 4. DVT prophylaxis?[facility] E&M: [id number] Initial observation care L2
[2020-06-13 22:59] VITALS: BP 135/83; PULSE 64; RESP 18; TEMP 36.4; O2SAT 98
[2020-06-13 23:14] VITALS: BP 152/92; PULSE 74; RESP 16; TEMP 36.5; O2SAT 98; BMI 33.9
[2020-06-13 23:24] VITALS: PULSE 64
--- NOTE | 2020-06-13 23:24 | EKG12_ITS ---
Test Reason : ADM EKG Blood Pressure : / mmHG Vent. Rate : 063 BPM Atrial Rate : 063 BPM P-R Int : 190 ms QRS Dur : 100 ms QT Int : 422 ms P-R-T Axes : 066 -04 -14 degrees QTc Int : 431 ms Sinus rhythm with marked sinus arrhythmia with occasional Premature ventricular complexes Inferior infarct , age undetermined Abnormal ECG Confirmed by FILEMON BOLIVAR, MERVAT ([id number]), avid editor DUTCH JOHNSON ([id number]) on 06/16/2020 2:07:14 PM Referred By: LISA Confirmed By:MERVAT COLBERT MD
[2020-06-14] VITALS (10 sets, daily range): BP systolic 115–147; BP diastolic 72–95; PULSE 64–81; RESP 18; TEMP 36.4–36.7; O2SAT 95–98
[2020-06-14] MEDS: 0.9% Saline Lock 10 ML Syringe IV (00:01)
[2020-06-14 07:01] LABS: Hematocrit 46.2 % (40-54); Hemoglobin 14.3 g/dL (13.0-16.5); Mean Corpuscular Hgb 27.6 pg (27.0-32.0); Mean Platelet Vol. 10.7 fl (6.2-12.0); Platelet Count 145 K/mm3 (150-450); RBC Distribution Width CV 14.3 % (11.6-14.6); RBC Distribution Width SD 45.6 fl (35.1-43.9); Red Blood Count 5.19 M/mm3 (4.6-6.2); White Blood Count 5.7 K/mm3 (4.4-11.0)
[2020-06-14 07:08] LABS: Prothrombin Time (Protime)PT. 12.9 SECONDS (11.7-14.9)
[2020-06-14 07:45] LABS: AST(SGOT) 25 U/L (15-37); Alanine Aminotransfer ALT/SGPT 22 U/L (16-61); Albumin, Serum 2.9 g/dL (3.2-5.0); Alkaline Phosphatase 107 U/L (45-117); Anion Gap 5 (5-15); BUN 11 mg/dL (7-18); BUN/Creat Ratio 10.4 RATIO (10-20); Calcium,Total 8.4 mg/dL (8.5-10.1); Chloride 108 mmol/L (98-107); Cholesterol 145 mg/dL (200); Creatinine, Serum 1.06 mg/dL (0.70-1.30); EST Glomerular Filtration Rate 74 mL/min (>60); Est Glom Filt Rate - Afr Amer 90 mL/min (>60); Estimated Creatinine Clearance 65.42 ml/min; Glucose 134 mg/dL (74-106); High Density Lipoprotein 42 mg/dL; Potassium 4.3 mmol/L (3.5-5.1); Protein, Total 5.9 g/dL (6.4-8.2); Sodium Level 138 mmol/L (136-145); Triglycerides 145 mg/dL; Very Low Density Lipoprotein 29 mg/dL (5-40)
[2020-06-14] MEDS: Carvedilol 3.125 MG TABLET PO ×2 (08:56→17:37)
[2020-06-14] MEDS: amLODIPine 5 MG Tablet PO (09:05)
[2020-06-14] MEDS: Pantoprazole Sodium 20 MG Tablet PO (09:05)
[2020-06-14] MEDS: Methimazole 5 MG Tablet PO ×2 (09:06→23:07)
[2020-06-14] MEDS: Cholecalciferol (VIT D3) 25 MCG TABLET (1,000 UNITS) 50 MCG PO (09:06)
[2020-06-14] MEDS: Empagliflozin 10 MG Tablet PO (09:06)
[2020-06-14] MEDS: 0.9% Normal Saline 1,000 ML 100 ML IV ×2 (09:07)
--- NOTE | 2020-06-14 10:40 | CT_ITS ---
STUDY: CT BRAIN WITHOUT CONTRAST REASON FOR EXAM: Male, 69 years old. HEADACHE RADIATION DOSAGE (If Supplied By Facility): CTDIvol = ( 44.99 ) mGy, DLP = ( 846.73 ) mGycm TECHNIQUE: Transaxial CT imaging of the brain was performed without administration of intravenous contrast material. Individualized dose optimization techniques were used for this CT. COMPARISON: 10/28/2019 FINDINGS: Normal soft tissue structures. Postoperative changes consistent with left frontal parietal craniotomy site. Within the left extracerebral space is chronic-appearing hyperdense region likely sequela of previously known subdural hematoma with no evidence of active bleeding elements. There are areas of decreased attenuation within the white matter tracts of the supratentorial brain, consistent with microvascular disease changes. Normal basal ganglia and thalami. Normal brainstem. Normal cerebellum. There is no intracranial hemorrhage. There are no findings of an acute ischemic infarction. Normal visualized paranasal sinuses. CT/Brain/Head without Contrast IMPRESSION: Chronic appearing scarring versus residual effects from previous subdural hematoma within the left frontal parietal extracerebral space with no evidence of focal hyperdense regions to suggest underlying active bleeding with noted adjacent postoperative changes. Otherwise no evidence of acute ischemia. Electronically Signed: Zain Rojas DO at 11:19 EDT , Service support ,
--- NOTE | 2020-06-14 12:23 | PN_ITS ---
Patient Problems: Active and Suspected Problems (Last Reviewed 05/25/20 @ 14:31 by Sachi Horner) Chest pain (Acute) Reason for Visit: Unstable angina Subjective: Patient is a 69-year-old gentleman with past medical history significant for coronary artery disease status post PCI with a recent positive stress test as outpatient who presented with worsening symptoms. Admitted to a monitored bed as a case of unstable angina with consultation placed to cardiology Objective: GENERAL: cooperative HEENT: Atraumatic; EYES; Anicteric, Normal Conjunctiva NECK; supple, normal thyroid, RESPIRATORY: Diminished to auscultation CARDIOVASCULAR: Regular S1 S2, GI: soft, normoactive bowel sounds, : No Renal angle tenderness; EXTREMITIES: No edema, no clubbing, MUSCULOSKELETAL: no muscle waisting NEURO: Awake; no lateralizing signs. SKIN: No Rash PSYCH; Flat affect Vitals/I&O's: Vital Signs Temp Pulse Resp BP Pulse Ox 97.6 F L 78 18 139/95 H 98 06/14/20 11:09 06/14/20 11:09 06/14/20 11:09 06/14/20 11:09 06/14/20 11:09 Oxygen Delivery Method Room Air Weight: 101.151 kg Body Mass Index (BMI) 33.9 Intake and Output for Last 24 Hours 06/12/20 06/13/20 06/14/20 23:59 23:59 23:59 Intake Total 911.67 / 911.67 Output Total 300 / 300 Balance -300 / -300 911.67 / 911.67 Laboratory Results 06/13/20 18:55: WBC 7.0, RBC 5.48, Hgb 15.4, Hct 48.5, MCV 88.5, MCH 28.1, MCHC 31.8 L, RDW Std Deviation 45.7 H, RDW Coeff of Kera 14.3, Plt Count 188, MPV 10.6, Immature Gran % (Auto) 0.600, Neut % (Auto) 66.8, Lymph % (Auto) 21.6, [place] % (Auto) 8.8, Eos % (Auto) 1.6, Baso % (Auto) 0.6, Absolute Neuts (auto) 4.7, Absolute Lymphs (auto) 1.52, Nucleated RBC % 0 06/13/20 18:55: Sodium 138, Potassium 4.1, Chloride 106, Carbon Dioxide 26.0, Anion Gap 6, BUN 11, Creatinine 1.31 H, Estim Creat Clear Calc 80.41, Est GFR (MDRD) Af Amer 70, Est GFR (MDRD) Non-Af 58 L, BUN/Creatinine Ratio 8.4 L, Glucose 156 H, Calcium 9.0, Troponin I < 0.015 06/13/20 18:55: D-Dimer Quant (PE/DVT) 0.37 06/14/20 00:05: Troponin I < 0.015 06/14/20 03:12: Troponin I < 0.015 06/14/20 06:25: Sodium 138, Potassium 4.3, Chloride 108 H, Carbon Dioxide 25.0, Anion Gap 5, BUN 11, Creatinine 1.06, Estim Creat Clear Calc 65.42, Est GFR (MDRD) Af Amer 90, Est GFR (MDRD) Non-Af 74, BUN/Creatinine Ratio 10.4, Glucose 134 H, Calcium 8.4 L, Total Bilirubin 0.60, AST 25, ALT 22, Alkaline Phosphatase 107, Troponin I < 0.015, Total Protein 5.9 L, Albumin 2.9 L, Globulin 3.0, Albumin/Globulin Ratio 1.0, Triglycerides 145, Cholesterol 145, LDL Cholesterol 74, VLDL Cholesterol 29, HDL Cholesterol 42 06/14/20 06:25: WBC 5.7, RBC 5.19, Hgb 14.3, Hct 46.2, MCV 89.0, MCH 27.6, MCHC 31.0 L, RDW Std Deviation 45.6 H, RDW Coeff of Kera 14.3, Plt Count 145 L, MPV 10.7 06/14/20 06:25: PT 12.9, INR 1.0 Current Medications Amlodipine Besylate (Amlodipine 5 Mg Tablet) 5 mg PO DAILY [facility] Last Admin: 06/14/20 09:05 Dose: 5 mg Documented by: Atorvastatin Calcium (Atorvastatin Calcium 80 Mg Tablet) 80 mg PO DAILY@2200 [facility] Carvedilol ([facility] 3.125 Mg Tablet) [facility] Last Admin: 06/14/20 08:56 Dose: 3.125 mg Documented by: Cholecalciferol (Cholecalciferol (Vit D3) 25 Mcg Tablet (1,000 Units)) 50 mcg PO DAILY [facility] Last Admin: 06/14/20 09:06 Dose: 50 mcg Documented by: Empagliflozin (Empagliflozin 10 Mg Tablet) 10 mg PO DAILY [facility] Last Admin: 06/14/20 09:06 Dose: 10 mg Documented by: Sodium Chloride () 1,000 mls @ 100 mls/hr IV .Q10H [facility] Last Admin: 06/14/20 09:07 Dose: 100 mls/hr Documented by: Insulin Glargine (Insulin Glargine 100 Units/Ml Pen) 25 units SC DAILY [facility] Insulin Human Lispro (Insulin Lispro 100 Unit/Ml Insuln.Pen) 10 unit SC TIDCM [facility] Last Admin: 06/14/20 08:27 Dose: Not Given Documented by: Lactobacillus Acidophilus (Lact[facility] Acidophilus) [facility] Last Admin: 06/14/20 08:56 Dose: 1 tablet Documented by: Methimazole (Methimazole 5 Mg Tablet) 5 mg PO BID [facility] Last Admin: 06/14/20 09:06 Dose: 5 mg Documented by: Morphine Sulfate (Morphine 2 Mg/Ml Syringe) 2 mg IV Q3H PRN PRN PRN Reason: Pain Score 6-10 Nitroglycerin (Nitroglycerin (Inpatient Use) 0.4 Mg Tab.Subl) 0.4 mg SL Q5M PRN PRN Reason: CHEST PAIN Pantoprazole Sodium (Pantoprazole Sodium 20 Mg Tablet) 20 mg PO DAILY [facility] Last Admin: 06/14/20 09:05 Dose: 20 mg Documented by: Sodium Chloride (0.9% Saline Lock 10 Ml Syringe) 10 - 40 ml IV UD PRN PRN Reason: SALINE FLUSH Last Admin: 06/14/20 00:01 Dose: 10 ml Documented by: STROKE Vital Signs/Narrative: Vital Signs Temp Pulse Resp BP Pulse Ox 06/14/20 11:09 97.6 F L 78 18 139/95 H 98 06/14/20 09:55 96 Medical Necessity - Tobacco Use Smoking Status: Former smoker Tobacco Use: Cigarettes Assessment/Plan All Active Problems (Last Reviewed 05/25/20 @ 14:31 by Sachi Horner) Chest pain (Acute) Postoperative atrial fibrillation (Acute) STEMI (ST elevation myocardial infarction) (Resolved) Patient is a 69-year-old gentleman with past medical history significant for coronary artery disease status post PCI with a recent positive stress test as outpatient who presented with worsening symptoms. Admitted to a monitored bed as a case of unstable angina with consultation placed to cardiology 1. Unstable angina ?Patient is nuclear stress test performed on 06/07/2020 demonstrated demonstrated myocardial perfusion changes appearing compatible with an area of previous myocardial injury/infarction with post stress myocardial perfusion changes appearing compatible with an area of luz-infarct related myocardial ischemia (mid inferior segments). The gated Cardiolite study reports an LVEF of 47%. Admitted to a monitored bed. Case was discussed with cardiology Dr. Escalera. Given patient previous history of recurrent subdural hematoma Dr. Escalera recommended obtaining clearance from neurology prior to proceeding with any left heart catheterization and possible intervention warranted dual antiplatelet therapy. Did discuss with patient that he may need to be transferred to a tertiary care center with neurosurgery/neurology availability. Patient did request to be transferred to [facility] call has been placed bed currently not available 2. Coronary artery disease ?With previous CABG and subsequent PCI 3. Hypertension - Blood pressure controlled, home medications continued with dose adjustment as needed 4. Dyslipidemia -Patient is on statin therapy, continued at home dose 5. Hypothyroidism ?Patient is on methimazole discontinued 6. Diabetes mellitus type II -patient's oral hypoglycemics held. Placed on long acting insulin, Accu-Cheks a.c. and at bedtime and covered with sliding scale insulin 7. History of spontaneous subdural hematoma ?Status post bur hole drainage/craniotomy -Head CT without contrast demonstrated Chronic appearing scarring versus residual effects from previous subdural hematoma within the left frontal parietal extracerebral space with no evidence of focal hyperdense regions to suggest underlying active bleeding with noted adjacent postoperative changes. Otherwise no evidence of acute ischemia. 8. DVT prophylaxis ?Bilateral SCDs Advance planning; did discuss with the patient and family (patient's ) regarding advanced directives as well as CODE STATUS. Did explain the various scenarios involved ( FULL CODE, DNR CCA, DNR CCA with no intubation, and DNR CC and what each meant) patient elected to be full code with CPR and intubation if warranted; time spent on discussion 18 minutes. Inpatient E&M: [id number] [facility] L3 Procedures: [id number] Advncd Care Plan 30 Min
[2020-06-14 12:30] LABS: Bedside Glucose 132 mg/dL (70-110)
--- NOTE | 2020-06-14 15:13 | DCINST_ITS ---
- Discharge Diagnoses Current Active Problems: Current Active and Chronic Problems (Last Reviewed 05/25/20 @ 14:31 by Sachi Horner) Chest pain (Acute) Pure hypercholesterolemia (Chronic) Subdural hematoma, acute (Chronic) Type 2 diabetes mellitus (Chronic) History of coronary artery bypass graft (Chronic ~11/23/18) CABG X [address] [facility] [address] Mayor JUÁREZ to mid LAD, SVG to OM1, SVG to right PDA Essential hypertension (Chronic) Atrial flutter (Chronic) Stented coronary artery (Chronic 01/22/18) Patient has had multiple stents in 2012 and 2014 but we do not have those records. LAURA (2.5X20 [employer]) to mid RCA 12/23/17; LAURA (2.25 X 12 [employer]) to distal RCA/proximal PDA, as well as POBA to ostial PL Branch with 2.0 X12 balloon 01/22/18 Atherosclerotic heart disease of craig coronary artery without angina pectoris (Chronic 12/23/17) LAURA (2.5X20 [employer]) to RCA; pt to have staged procedure for PCI of ostial PDA;CABG X 3 [facility] 11/06/18 Dr. Mayor JUÁREZ to mid LAD, SVG to OM1, SVG to right PDA History of acute inferior wall GA (Chronic 12/23/17) Besides the inferior GA 12/23/17, patient apparently had GA's and stents in 2012 and in 2014 You will use the following diet at home:: Cardiac Your food should be the consistency of: Regular Discharge Activity: Return to Normal Activity Allergies/Adverse Reactions: Allergies lisinopril Adverse Reaction (Intermediate, Verified 06/13/20 18:47) COUGH Medications to take at Discharge Atorvastatin Calcium [Lipitor] 80 mg PO DAILY 12/23/17 Lansoprazole 15 mg PO DAILY 12/23/17 cholecalciferol (vitamin D3) 50 mcg (2,000 unit) capsule 2,000 unit PO DAILY 12/11/18 empagliflozin 10 mg tablet 10 mg PO DAILY 05/28/19 amlodipine 5 mg tablet 5 mg PO DAILY 12/07/19 carvedilol 6.25 mg tablet 3.125 mg PO BID 05/25/20 insulin aspart U-100 100 unit/mL (3 mL) subcutaneous pen 10 unit SC TID ml 05/25/20 insulin glargine 100 unit/mL (3 mL) subcutaneous pen 25 unit SC DAILY ml 05/25/20 lactobacillus combination no.9 4 billion cell capsule 4,000 mmu cells PO DAILY 05/25/20 Methimazole [Tapazole] 5 mg PO BID 06/13/20 Primary Care Physician: Miguel Love MD [Primary Care Provider] - Please follow up with your Primary Care Physician in: in 1-2 weeks Test Results: Test results from this visit will be discussed in further detail at your follow- up appointment, if applicable. Please Follow Up With: Sony Escalera MD When: 2-4 weeks Proposed Discharge Date: 06/14/20
--- NOTE | 2020-06-14 16:41 | CON.PCM_ITS ---
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 Discussion: The surgeon/proceduralist and patient have discussed in detail the risk of exposure to and/or potential harm posed by the COVID-19 virus with having a surgery/procedure at this time versus the risk of delaying the surgery/procedure. It is not possible to know either the risk of delaying the surgery or procedure or chance of getting an infection with perfect accuracy, but a joint decision was made between the patient and the surgeon/proceduralist to proceed at this time with the scheduled surgery/procedure as indicated on the consent form.
[2020-06-14 17:35] LABS: Bedside Glucose 133 mg/dL (70-110)
[2020-06-14] MEDS: Insulin Lispro 100 UNIT/ML INSULN.PEN 10 UNIT SC (17:44)
[2020-06-14] MEDS: Atorvastatin Calcium 80 MG Tablet PO (23:07)
[2020-06-14 23:15] LABS: Bedside Glucose 139 mg/dL (70-110)
[2020-06-15] VITALS (7 sets, daily range): BP systolic 99–121; BP diastolic 52–74; PULSE 69–75; RESP 16; TEMP 36.5–36.6; O2SAT 91–96
[2020-06-15 08:20] LABS: Bedside Glucose 149 mg/dL (70-110)
[2020-06-15] MEDS: Carvedilol 3.125 MG TABLET PO (08:25)
[2020-06-15] MEDS: Insulin Lispro 100 UNIT/ML INSULN.PEN 10 UNIT SC ×2 (08:26→12:52)
[2020-06-15] MEDS: Pantoprazole Sodium 20 MG Tablet PO (08:31)
[2020-06-15] MEDS: Empagliflozin 10 MG Tablet PO (08:31)
[2020-06-15] MEDS: amLODIPine 5 MG Tablet PO (08:31)
[2020-06-15] MEDS: Methimazole 5 MG Tablet PO (08:31)
[2020-06-15] MEDS: Cholecalciferol (VIT D3) 25 MCG TABLET (1,000 UNITS) 50 MCG PO (08:31)
--- NOTE | 2020-06-15 11:01 | PN_ITS ---
Patient Problems: Active and Suspected Problems (Last Reviewed 05/25/20 @ 14:31 by Sachi Horner) Chest pain (Acute) CAD (coronary artery disease) (Acute) Postoperative atrial fibrillation (Acute) Reason for Visit: Unstable angina Subjective: Patient is a 69-year-old gentleman with past medical history significant for coronary artery disease status post PCI with a recent positive stress test as outpatient who presented with worsening symptoms. Admitted to a monitored bed as a case of unstable angina with consultation placed to cardiology Objective: GENERAL: cooperative HEENT: Atraumatic; EYES; Anicteric, Normal Conjunctiva NECK; supple, normal thyroid, RESPIRATORY: Diminished to auscultation CARDIOVASCULAR: Regular S1 S2, GI: soft, normoactive bowel sounds, : No Renal angle tenderness; EXTREMITIES: No edema, no clubbing, MUSCULOSKELETAL: no muscle waisting NEURO: Awake; no lateralizing signs. SKIN: No Rash PSYCH; Flat affect Vitals/I&O's: Vital Signs Temp Pulse Resp BP Pulse Ox 97.8 F 69 16 99/52 L 91 06/15/20 04:28 06/15/20 04:28 06/15/20 04:28 06/15/20 04:28 06/15/20 07:43 Oxygen Delivery Method Room Air Weight: 101.151 kg Body Mass Index (BMI) 33.9 Intake and Output for Last 24 Hours 06/13/20 06/14/20 06/15/20 23:59 23:59 23:59 Intake Total 2151.67 / 2151.67 240 / 240 Output Total 300 / 300 Balance -300 / -300 2151.67 / 2151.67 240 / 240 Laboratory Results 06/14/20 12:22: POC Glucose 132 H 06/14/20 17:31: POC Glucose 133 H 06/14/20 23:03: POC Glucose 139 H 06/15/20 08:15: POC Glucose 149 H Current Medications Amlodipine Besylate (Amlodipine 5 Mg Tablet) 5 mg PO DAILY [facility] Last Admin: 06/15/20 08:31 Dose: 5 mg Documented by: Atorvastatin Calcium (Atorvastatin Calcium 80 Mg Tablet) 80 mg PO DAILY@2200 [facility] Last Admin: 06/14/20 23:07 Dose: 80 mg Documented by: Carvedilol (Carvedilol 3.125 Mg Tablet) [facility] Last Admin: 06/15/20 08:25 Dose: 3.125 mg Documented by: Cholecalciferol (Cholecalciferol (Vit D3) 25 Mcg Tablet (1,000 Units)) 50 mcg PO DAILY [facility] Last Admin: 06/15/20 08:31 Dose: 50 mcg Documented by: Empagliflozin (Empagliflozin 10 Mg Tablet) 10 mg PO DAILY [facility] Last Admin: 06/15/20 08:31 Dose: 10 mg Documented by: Insulin Glargine (Insulin Glargine 100 Units/Ml Pen) 25 units SC DAILY [facility] Last Admin: 06/15/20 08:26 Dose: 25 u Documented by: Insulin Human Lispro (Insulin Lispro 100 Unit/Ml Insuln.Pen) 10 unit SC TIDCM [facility] Last Admin: 06/15/20 08:26 Dose: 10 u Documented by: Lactobacillus Acidophilus (Lactobacillus Acidophilus) 1 tablet PO DAILYCM [facility] Last Admin: 06/15/20 08:25 Dose: 1 tablet Documented by: Methimazole (Methimazole 5 Mg Tablet) 5 mg PO BID [facility] Last Admin: 06/15/20 08:31 Dose: 5 mg Documented by: Morphine Sulfate (Morphine 2 Mg/Ml Syringe) 2 mg IV Q3H PRN PRN PRN Reason: Pain Score 6-10 Nitroglycerin (Nitroglycerin (Inpatient Use) 0.4 Mg Tab.Subl) 0.4 mg SL Q5M PRN PRN Reason: CHEST PAIN Pantoprazole Sodium (Pantoprazole Sodium 20 Mg Tablet) 20 mg PO DAILY [facility] Last Admin: 06/15/20 08:31 Dose: 20 mg Documented by: Sodium Chloride (0.9% Saline Lock 10 Ml Syringe) 10 - 40 ml IV UD PRN PRN Reason: SALINE FLUSH Last Admin: 06/14/20 00:01 Dose: 10 ml Documented by: STROKE Vital Signs/Narrative: Vital Signs Pulse Ox 06/15/20 07:43 91 Medical Necessity - Tobacco Use Smoking Status: Former smoker Tobacco Use: Cigarettes Assessment/Plan All Active Problems (Last Reviewed 05/25/20 @ 14:31 by Sachi Horner) Chest pain (Acute) CAD (coronary artery disease) (Acute) Postoperative atrial fibrillation (Acute) STEMI (ST elevation myocardial infarction) (Resolved) Patient is a 69-year-old gentleman with past medical history significant for coronary artery disease status post PCI with a recent positive stress test as outpatient who presented with worsening symptoms. Admitted to a monitored bed as a case of unstable angina with consultation placed to cardiology 1. Unstable angina ?Patient is nuclear stress test performed on 06/07/2020 demonstrated demonstrated myocardial perfusion changes appearing compatible with an area of previous myocardial injury/infarction with post stress myocardial perfusion changes appearing compatible with an area of luz-infarct related myocardial ischemia (mid inferior segments). The gated Cardiolite study reports an LVEF of 47%. Admitted to a monitored bed. Case was discussed with cardiology Dr. Escalera. Given patient previous history of recurrent subdural hematoma Dr. Escalera recommended obtaining clearance from neurology prior to proceeding with any left heart catheterization and possible intervention warranted dual antiplatelet therapy. Did discuss with patient that he may need to be transferred to a tertiary care center with neurosurgery/neurology availability. Patient did request to be [facility] to [facility] call has been placed bed currently not available -06/15/2020; patient seen cardiac enzymes and so far remained negative to date. Bed still not available at this [facility] for possible transfer. Did discuss with patient about being transferred to alternative facility he declined insisting that the only place he would like to be transferred to his [facility]. 2. Coronary artery disease ?With previous CABG and subsequent PCI 3. Hypertension - Blood pressure controlled, home medications continued with dose adjustment as needed 4. Dyslipidemia -Patient is on statin therapy, continued at home dose 5. Hypothyroidism ?Patient is on methimazole discontinued 6. Diabetes mellitus type II -patient's oral hypoglycemics held. Placed on long acting insulin, Accu-Cheks a.c. and at bedtime and covered with sliding scale insulin 7. History of spontaneous subdural hematoma ?Status post bur hole drainage/craniotomy -Head CT without contrast demonstrated Chronic appearing scarring versus residual effects from previous subdural hematoma within the left frontal parietal extracerebral space with no evidence of focal hyperdense regions to suggest underlying active bleeding with noted adjacent postoperative changes. Otherwise no evidence of acute ischemia. 8. DVT prophylaxis ?Bilateral SCDs Inpatient E&M: 84204 Subs Hosp L2
[2020-06-15 13:00] LABS: Bedside Glucose 214 mg/dL (70-110)
--- NOTE | 2020-06-15 14:11 | PCM.DC ---
- Discharge Diagnoses Current Active Problems: Current Active and Chronic Problems (Last Reviewed 05/25/20 @ 14:31 by Sachi Horner) Chest pain (Acute) CAD (coronary artery disease) (Acute) Postoperative atrial fibrillation (Acute) Pure hypercholesterolemia (Chronic) Subdural hematoma, acute (Chronic) Type 2 diabetes mellitus (Chronic) History of coronary artery bypass graft (Chronic ~11/23/18) CABG X [address] [facility] [address] Mayor JUÁREZ to mid LAD, SVG to OM1, SVG to right PDA Essential hypertension (Chronic) Atrial flutter (Chronic) Stented coronary artery (Chronic 01/22/18) Patient has had multiple stents in 2012 and 2014 but we do not have those records. LAURA (2.5X20 [employer]) to mid RCA 12/23/17; LAURA (2.25 X 12 [employer]) to distal RCA/proximal PDA, as well as POBA to ostial PL Branch with 2.0 X12 balloon 01/22/18 Atherosclerotic heart disease of [place] coronary artery without angina pectoris (Chronic 12/23/17) LAURA (2.5X20 [employer]) to RCA; pt to have staged procedure for PCI of ostial PDA;CABG X 3 [facility] 11/06/18 Dr. Mayor JUÁREZ to mid LAD, SVG to OM1, SVG to right PDA History of acute inferior wall [place] (Chronic 12/23/17) Besides the inferior [place] 12/23/17, patient apparently had [place]'s and stents in 2012 and in 2014 You will use the following diet at home:: Cardiac Discharge Activity: Return to Normal Activity Instructions: ED Chest Pain, Noncardiac Allergies/Adverse Reactions: Allergies lisinopril Adverse Reaction (Intermediate, Verified 06/13/20 18:47) COUGH Medications to take at Discharge Atorvastatin Calcium [Lipitor] 80 mg PO DAILY 12/23/17 Lansoprazole 15 mg PO DAILY 12/23/17 cholecalciferol (vitamin D3) 50 mcg (2,000 unit) capsule 2,000 unit PO DAILY 12/11/18 empagliflozin 10 mg tablet 10 mg PO DAILY 05/28/19 amlodipine 5 mg tablet 5 mg PO DAILY 12/07/19 carvedilol 6.25 mg tablet 3.125 mg PO BID 05/25/20 insulin aspart U-100 100 unit/mL (3 mL) subcutaneous pen 10 unit SC TID ml 05/25/20 insulin glargine 100 unit/mL (3 mL) subcutaneous pen 25 unit SC DAILY ml 05/25/20 lactobacillus combination no.9 4 billion cell capsule 4,000 mmu cells PO DAILY 05/25/20 Methimazole [Tapazole] 5 mg PO BID 06/13/20 Primary Care Physician: Miguel Love MD [Primary Care Provider] - Please follow up with your Primary Care Physician in: in 1-2 weeks Test Results: Test results from this visit will be discussed in further detail at your follow-up appointment, if applicable. Please Follow Up With: Sony Escalera MD When: 2-4 weeks Proposed Discharge Date: 06/15/20
--- NOTE | 2020-06-15 14:13 | DS.PCM_ITS ---
Discharge Date and Diagnosis - Problem List Patient Problems: Active and Suspected Problems (Last Reviewed 05/25/20 @ 14:31 by Sachi Horner) Chest pain (Acute) CAD (coronary artery disease) (Acute) Postoperative atrial fibrillation (Acute) Date of Admission: 06/13/20 Date of Discharge: 06/15/20 - Primary Discharge Diagnosis Acute Problems: Active Problems (Last Reviewed 05/25/20 @ 14:31 by Sachi Horner) Chest pain (Acute) CAD (coronary artery disease) (Acute) Postoperative atrial fibrillation (Acute) - Secondary Discharge Diagnosis Chronic Problems: Chronic Problems (Last Reviewed 05/25/20 @ 14:31 by Sachi Horner) Pure hypercholesterolemia (Chronic) Subdural hematoma, acute (Chronic) Type 2 diabetes mellitus (Chronic) History of coronary artery bypass graft (Chronic ~11/23/18) CABG X [address] [facility] [address] Mayor JUÁREZ to mid LAD, SVG to OM1, SVG to right PDA Essential hypertension (Chronic) Atrial flutter (Chronic) Bradycardia (Chronic) Stented coronary artery (Chronic 01/22/18) Patient has had multiple stents in 2012 and 2014 but we do not have those records. LAURA (2.5X20 [employer]) to mid RCA 12/23/17; LAURA (2.25 X 12 [employer]) to distal RCA/proximal PDA, as well as POBA to ostial PL Branch with 2.0 X12 balloon 01/22/18 Atherosclerotic heart disease of [place] coronary artery without angina pectoris (Chronic 12/23/17) LAURA (2.5X20 [employer]) to RCA; pt to have staged procedure for PCI of ostial PDA;CABG X 3 [facility] 11/06/18 Dr. Mayor JUÁREZ to mid LAD, SVG to OM1, SVG to right PDA History of acute inferior wall [place] (Chronic 12/23/17) Besides the inferior [place] 12/23/17, patient apparently had [place]'s and stents in 2012 and in 2014 Hospital Course and Treatment Operations: None Summary of Care Provided: Patient is a 69-year-old gentleman with past medical history significant for coronary artery disease status post PCI with a recent positive stress test as outpatient who presented with worsening symptoms. Admitted to a monitored bed as a case of unstable angina with consultation placed to cardiology 1. Unstable angina ?Patient is nuclear stress test performed on 06/07/2020 demonstrated demonstrated myocardial perfusion changes appearing compatible with an area of previous myocardial injury/infarction with post stress myocardial perfusion changes appearing compatible with an area of luz-infarct related myocardial ischemia (mid inferior segments). The gated Cardiolite study reports an LVEF of 47%. Admitted to a monitored bed. Case was discussed with cardiology Dr. Escalera. Given patient previous history of recurrent subdural hematoma Dr. Escalera recommended obtaining clearance from neurology prior to proceeding with any left heart catheterization and possible intervention warranted dual antiplatelet therapy. Did discuss with patient that he may need to be transferred to a tertiary care center with neurosurgery/neurology availability. Patient did request to be transferred to [facility] call has been placed bed currently not available -06/15/2020; patient seen cardiac enzymes and so far remained negative to date. Bed still not available at this [facility] for possible transfer. Did discuss with patient about being transferred to alternative facility he declined insisting that the only place he would like to be transferred to his [facility]. ?06/15/2020 Case was discussed with Dr. Escalera. Decision was made to discharge patient home since patient did not have a bump in his cardiac enzymes and EKG had remained stable and his symptoms had resolved. Patient has an appointment to follow-up with neurology for clearance prior to any intervention he was instructed to keep the appointment. Patient was however advised to come back to the ED if he developed sudden onset of chest pain as well as shortness of breath at which point patient to be transferred from the ED to [facility]. This was communicated to both the patient and the they both did express understanding of this instruction. 2. Coronary artery disease ?With previous CABG and subsequent PCI 3. Hypertension - Blood pressure controlled, home medications continued with dose adjustment as needed 4. Dyslipidemia -Patient is on statin therapy, continued at home dose 5. Hypothyroidism ?Patient is on methimazole discontinued 6. Diabetes mellitus type II -patient's oral hypoglycemics held. Placed on long acting insulin, Accu-Cheks a.c. and at bedtime and covered with sliding scale insulin 7. History of spontaneous subdural hematoma ?Status post bur hole drainage/craniotomy -Head CT without contrast demonstrated Chronic appearing scarring versus residual effects from previous subdural hematoma within the left frontal parietal extracerebral space with no evidence of focal hyperdense regions to suggest underlying active bleeding with noted adjacent postoperative changes. Otherwise no evidence of acute ischemia. 8. DVT prophylaxis ?Bilateral SCDs Patient Problems: Active and Suspected Problems (Last Reviewed 05/25/20 @ 14:31 by Sachi stewart) Chest pain (Acute) CAD (coronary artery disease) (Acute) Postoperative atrial fibrillation (Acute) Objective: GENERAL: cooperative HEENT: Atraumatic; EYES; Anicteric, Normal Conjunctiva NECK; supple, normal thyroid, RESPIRATORY: Diminished to auscultation CARDIOVASCULAR: Regular S1 S2, GI: soft, normoactive bowel sounds, : No Renal angle tenderness; EXTREMITIES: No edema, no clubbing, MUSCULOSKELETAL: no muscle waisting NEURO: Awake; no lateralizing signs. SKIN: No Rash PSYCH; Flat affect - Physical Exam Vitals/I&O's: Vital Signs Temp Pulse Resp BP Pulse Ox 97.7 F L 71 16 121/74 H 96 06/15/20 10:28 06/15/20 10:28 06/15/20 10:28 06/15/20 10:28 06/15/20 10:28 Oxygen Delivery Method Room Air Weight: 101.151 kg Body Mass Index (BMI) 33.9 Intake and Output for Last 24 Hours 06/13/20 06/14/20 06/15/20 23:59 23:59 23:59 Intake Total 2151.67 / 2151.67 240 / 240 Output Total 300 / 300 Balance -300 / -300 2151.67 / 2151.67 240 / 240 Laboratory Results 06/14/20 17:31: POC Glucose 133 H 06/14/20 23:03: POC Glucose 139 H 06/15/20 08:15: POC Glucose 149 H 06/15/20 12:51: POC Glucose 214 H Current Medications Amlodipine Besylate (Amlodipine 5 Mg Tablet) 5 mg PO DAILY [facility] Last Admin: 06/15/20 08:31 Dose: 5 mg Documented by: Atorvastatin Calcium (Atorvastatin Calcium 80 Mg Tablet) 80 mg PO DAILY@2200 [facility] Last Admin: 06/14/20 23:07 Dose: 80 mg Documented by: Carvedilol ([facility] 3.125 Mg Tablet) [facility] Last Admin: 06/15/20 08:25 Dose: 3.125 mg Documented by: Cholecalciferol (Cholecalciferol (Vit D3) 25 Mcg Tablet (1,000 Units)) 50 mcg PO DAILY [facility] Last Admin: 06/15/20 08:31 Dose: 50 mcg Documented by: Empagliflozin (Empagliflozin 10 Mg Tablet) 10 mg PO DAILY [facility] Last Admin: 06/15/20 08:31 Dose: 10 mg Documented by: Insulin Glargine (Insulin Glargine 100 Units/Ml Pen) 25 units SC DAILY [facility] Last Admin: 06/15/20 08:26 Dose: 25 u Documented by: Insulin Human Lispro (Insulin Lispro 100 Unit/Ml Insuln.Pen) 10 unit SC TIDCM [facility] Last Admin: 06/15/20 12:52 Dose: 10 u Documented by: Lactobacillus Acidophilus (Lactobacillus Acidophilus) 1 tablet PO DAILYCM [facility] Last Admin: 06/15/20 08:25 Dose: 1 tablet Documented by: Methimazole (Methimazole 5 Mg Tablet) 5 mg PO BID [facility] Last Admin: 06/15/20 08:31 Dose: 5 mg Documented by: Morphine Sulfate (Morphine 2 Mg/Ml Syringe) 2 mg IV Q3H PRN PRN PRN Reason: Pain Score 6-10 Nitroglycerin (Nitroglycerin (Inpatient Use) 0.4 Mg Tab.Subl) 0.4 mg SL Q5M PRN PRN Reason: CHEST PAIN Pantoprazole Sodium (Pantoprazole Sodium 20 Mg Tablet) 20 mg PO DAILY [facility] Last Admin: 06/15/20 08:31 Dose: 20 mg Documented by: Sodium Chloride (0.9% Saline Lock 10 Ml Syringe) 10 - 40 ml IV UD PRN PRN Reason: SALINE FLUSH Last Admin: 06/14/20 00:01 Dose: 10 ml Documented by: Discharge Diet: Low fat/ Low Cholesterol Discharge Activity: Return to Normal Activity Home Medications: Medications to take at Discharge Atorvastatin Calcium [Lipitor] 80 mg PO DAILY 12/23/17 Lansoprazole 15 mg PO DAILY 12/23/17 cholecalciferol (vitamin D3) 50 mcg (2,000 unit) capsule 2,000 unit PO DAILY 12/11/18 empagliflozin 10 mg tablet 10 mg PO DAILY 05/28/19 amlodipine 5 mg tablet 5 mg PO DAILY 12/07/19 carvedilol 6.25 mg tablet 3.125 mg PO BID 05/25/20 insulin aspart U-100 100 unit/mL (3 mL) subcutaneous pen 10 unit SC TID ml 05/25/20 insulin glargine 100 unit/mL (3 mL) subcutaneous pen 25 unit SC DAILY ml 05/25/20 lactobacillus combination no.9 4 billion cell capsule 4,000 mmu cells PO DAILY 05/25/20 Methimazole [Tapazole] 5 mg PO BID 06/13/20 Primary Care Physician: Miguel Love MD [Primary Care Provider] - Please follow up with your Primary Care Physician in: in 1-2 weeks Please Follow Up With: Sony Escalera MD When: 2-4 weeks Patient Instructions: ED Chest Pain, Noncardiac Disposition: Home Minutes spent on discharge:: 35 Patient Condition:: Stable Medical Necessity - Tobacco Use Smoking Status: Former smoker Tobacco Use: Cigarettes Meaningful Use Info Meaningful Use Diagnoses (Choose all that apply): None applicable Inpatient E&M: 07227 Disch Hosp
--- NOTE | 2020-06-15 14:16 | PHA.DC.MR ---
Pharmacy Service has performed discharge medication reconciliation for this patient. The patient's discharge medication list was reviewed for discrepancies and discrepancies were resolved. Home Medications Atorvastatin Calcium [Lipitor] 80 mg PO DAILY 12/23/17 Lansoprazole 15 mg PO DAILY 12/23/17 cholecalciferol (vitamin D3) 50 mcg (2,000 unit) capsule 2,000 unit PO DAILY 12/11/18 empagliflozin 10 mg tablet 10 mg PO DAILY 05/28/19 amlodipine 5 mg tablet 5 mg PO DAILY 12/07/19 carvedilol 6.25 mg tablet 3.125 mg PO BID 05/25/20 insulin aspart U-100 100 unit/mL (3 mL) subcutaneous pen 10 unit SC TID ml 05/25/20 insulin glargine 100 unit/mL (3 mL) subcutaneous pen 25 unit SC DAILY ml 05/25/20 lactobacillus combination no.9 4 billion cell capsule 4,000 mmu cells PO DAILY 05/25/20 Methimazole [Tapazole] 5 mg PO BID 06/13/20
== END 2020-06-15 15:11 | disposition home or self-care (01) | DRG 303 ==
LOC: ED 19:42 → PCU 06-14 01:23
PROVIDERS: Admitting Provider Family Medicine; Emergency Provider Student in an Organized Health Care Education/Training Program; PCP Family Medicine; Visit Provider Internal Medicine
DX: I25.110 Atherosclerotic heart disease of native coronary artery with unstable angina pectoris (principal); I48.4 Atypical atrial flutter; I49.3 Ventricular premature depolarization; E78.5 Hyperlipidemia, unspecified; E03.9 Hypothyroidism, unspecified; I48.0 Paroxysmal atrial fibrillation; E11.9 Type 2 diabetes mellitus without complications; I10 Essential (primary) hypertension; E78.00 Pure hypercholesterolemia, unspecified; K21.9 Gastro-esophageal reflux disease without esophagitis; F32.9 Major depressive disorder, single episode, unspecified; E66.9 Obesity, unspecified; Z68.33 Body mass index [BMI] 33.0-33.9, adult; Z79.4 Long term (current) use of insulin; Z79.899 Other long term (current) drug therapy; I25.2 Old myocardial infarction; Z86.73 Personal history of transient ischemic attack (TIA), and cerebral infarction without residual deficits; Z87.891 Personal history of nicotine dependence; Z95.1 Presence of aortocoronary bypass graft; Z95.5 Presence of coronary angioplasty implant and graft
CPT/HCPCS: 36415; 70450; 71045; 80048; 80053; 80061; 82962; 84484; 85025; 85027; 85379; 85610; 93005; 99284; J7030; A4216

== ENCOUNTER → 2020-08-22 12:29 | Outpatient (CLI) | payer MEDICARE, OTHER, SELFPAY ==
[2020-06-09 15:37] VITALS: BMI 34.2
[2020-06-13 23:14] VITALS: BMI 33.9
[2020-08-22 13:33] LABS: Hemoglobin 15.4 g/dL (13.0-16.5); Mean Corp Hgb Conc 32.1 g/dL (32-36); Mean Corpuscular Hgb 27.5 pg (27.0-32.0); Mean Corpuscular Volume 85.9 fL (80-94); Platelet Count 174 K/mm3 (150-450); RBC Distribution Width CV 15.3 % (11.6-14.6); RBC Distribution Width SD 47.9 fl (35.1-43.9); Red Blood Count 5.59 M/mm3 (4.6-6.2); White Blood Count 6.1 K/mm3 (4.4-11.0)
[2020-08-22 13:41] LABS: Prothrombin Time (Protime)PT. 12.1 SECONDS (11.7-14.9)
[2020-08-22 13:42] LABS: Partial Thromboplast Time 29.2 Seconds (24.1-36.2)
== END ==
PROVIDERS: PCP Family Medicine; Referring Provider Psychiatry & Neurology Neurology; Visit Provider Psychiatry & Neurology Neurology
DX: I25.10 Atherosclerotic heart disease of native coronary artery without angina pectoris (principal); R07.9 Chest pain, unspecified; Z86.79 Personal history of other diseases of the circulatory system
CPT/HCPCS: 36415; 85027; 85610; 85730

== ENCOUNTER 2020-09-13 08:39 | Day surgery (SDC) | payer MEDICARE, OTHER, SELFPAY ==
[2020-06-09 15:37] VITALS: BMI 34.2
[2020-09-07 15:16] VITALS: BMI 34.3
[2020-09-08 10:04] LABS: Absolute Lymphocyte Count 1.24 X10^3/uL (0.83-4.51); Basophil# 0.04 X10^3/uL; Basophil% 0.8 % (0-1); Eosinophil# 0.08 X10^3/uL; Eosinophils% 1.6 % (0-5); Hematocrit 48.7 % (40-54); Hemoglobin 15.4 g/dL (13.0-16.5); Lymphocyte # 1.24 X10^3/ul (0.83-4.51); Lymphocyte % 25.2 % (19-41); Mean Corp Hgb Conc 31.6 g/dL (32-36); Mean Corpuscular Hgb 27.6 pg (27.0-32.0); Mean Corpuscular Volume 87.3 fL (80-94); Mean Platelet Vol. 10.8 fl (6.2-12.0); Monocyte# 0.52 X10^3/uL; Monocyte% 10.6 % (0-10); NRBC Flagged by Analyzer 0 % (0-5); Neutrophil # 3.02 X10^3/uL (2.7-7.7); Neutrophil % 61.4 % (47-70); Platelet Count 148 K/mm3 (150-450); RBC Distribution Width CV 15.5 % (11.6-14.6); RBC Distribution Width SD 49.1 fl (35.1-43.9); Red Blood Count 5.58 M/mm3 (4.6-6.2); White Blood Count 4.9 K/mm3 (4.4-11.0)
[2020-09-08 10:11] LABS: Partial Thromboplast Time 30.7 Seconds (24.1-36.2); Prothrombin Time (Protime)PT. 12.8 SECONDS (11.7-14.9)
[2020-09-08 10:49] LABS: Anion Gap 8 (5-15); BUN 12 mg/dL (7-18); Calcium,Total 8.5 mg/dL (8.5-10.1); Chloride 109 mmol/L (98-107); EST Glomerular Filtration Rate 64 mL/min (>60); Est Glom Filt Rate - Afr Amer 78 mL/min (>60); Glucose 152 mg/dL (74-106); Potassium 3.8 mmol/L (3.5-5.1); Sodium Level 139 mmol/L (136-145)
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
[2020-09-12 08:46] VITALS: BMI 34.3
--- NOTE | 2020-09-13 11:34 | CL.D_ITS ---
Patient Name: DOMINGA TREJO Study Date: 09/13/2020 Performing: Sony Escalera MD Ht: 68.11 inches 173 cm : 1950 Wt: 227.08 lbs 103 kg Age: 69 Gender: male BSA: 2.16 PROCEDURE(S) PERFORMED GE83-QFU/COR/LV/CABG DC11-AO ROOT ANGIO WITH HEART CATH CLINICAL PROFILE AND INDICATIONS Indications: Suspected CAD Heart Failure: None Stress/Imaging Date: 06/07/2020tress Test with SPECT MPI: Positive Intermediate Risk Angina Classification Anginal Classification w/in 2 Weeks: Anginal Equivalent Dyspnea CAD Presentations: Other: shortness of breath / dyspnea CONCLUSIONS Normal Left Ventricular End Diastolic Pressure Segmented LV systolic dysfunction- Mild LVEF: by LV gram 40 % [place] Multivessel CAD JUÁREZ to LAD: patent SVG to OM1: occluded SVG to RCA: occluded RECOMMENDATIONS Risk factor modification Medical therapy DESCRIPTION OF PROCEDURE The patient arrived to the procedure lab. The risks and benefits of the procedure as well as a full d escription of our services here and current unavailability of surgical backup were fully explained to the patient and/or their significant other prior to the catheterization. The Timeout was completed, verifying the correct patient and procedure. The patient's procedural site was prepped and draped in the usual fashion. Local anesthetic was given subcutaneously to right groin region with Lidocaine 2%. Using a modified Seldinger technique, arterial access was obtained via the right femoral artery, a 4 Fr sheath was inserted Left Coronary Artery selective angiography was performed in multiple views us ing a 4 Fr. JL5 catheter. Right Coronary Artery selective angiography was then performed in multiple views using a 5 Fr. 3DRC (Kaushal) catheter. Left internal mammary artery graft to the LAD selective angiography was performed in multiple views using a 4 Fr. JR4 catheter. Left Ventriculography was performed in HUERTA projection using a 4 Fr. Pigtail catheter. LV to AO pullback pr essures were then recorded. Ascending (root) aorta selective angiography was then performed in single view. Ascending (root) aorta selective angiography was then performed in single view.The arterial sh eath was pulled and manual compression applied until hemostasis is achieved. CORONARY ANGIOGRAPHY DOMINANCE: Right Dominant LEFT HEART ASSESSMENT Left Ventricular Ejection Fraction: by LV Gram 40 % Inferior Basal Akinesis. Inferior Mid Hypokinesis Elevated Left Ventricular End Diastolic Pressure LVEDP: 18 mmHg LEFT MAIN: Angiographically normal LEFT ANTERIOR DESCENDING ARTERY: PROX LAD: Previously placed stent has an instent 90 % restenosis MID LAD: is occluded, to distal: fills from the JUÁREZ graft with no angiographically significant appea ring disease distal to the graft attachment DIAGONAL 1: Proximal - 85 % Stenosis (small caliber vessel) CIRCUMFLEX ARTERY: OSTIAL CIRC: 25 % Stenosis PROX CIRC: serial: eccentric: 25 % Stenosis DISTAL CIRC: is occluded OM 1: Proximal - Previously placed stent has an instent diffuse: eccentric: 25 % restenosis (small ca liber vessel) RIGHT CORONARY ARTERY: PROX RCA: Mild luminal irregularities MID RCA: Previously placed stent is occluded GRAFTS: JUÁREZ graft to the Mid LAD is patent Saphenous Vein graft to the 1st OM is totally occluded Saphenous Vein graft to the Distal RCA is totally occluded AORTIC ROOT: Angiographically normal COMPLICATIONS No Complications PROCEDURE MEDICATIONS Versed 1 mg IV Oxygen: 2 L/min via nasal cannula SUMMARY OF HEMODYNAMIC DATA Time AIR REST ECG 09:02:05 AO 111/70 (87) SA 10:36:26 LV 117/-3, 20 10:51:29 LV 114/-1, 18 10:51:35 LV 116/-1, 19 10:52:48 LV 116/-5, 17 10:52:54 LVp 120/-2, 21 10:52:58 AOp 113/61 (82) 10:53:04 ECG 11:21:06 Signed By Sony Escalera MD On 09/13/2020 11:33:15 Sony Escalera MD
== END 2020-09-13 15:20 | disposition home or self-care (01) ==
LOC: CLSP 08:40
PROVIDERS: Physician Assistant Medical; PCP Family Medicine; Referring Provider Internal Medicine Cardiovascular Disease; Visit Provider Internal Medicine Cardiovascular Disease
DX: I25.810 Atherosclerosis of coronary artery bypass graft(s) without angina pectoris (principal); I25.10 Atherosclerotic heart disease of native coronary artery without angina pectoris; I11.9 Hypertensive heart disease without heart failure; I48.0 Paroxysmal atrial fibrillation; E11.9 Type 2 diabetes mellitus without complications; E78.5 Hyperlipidemia, unspecified; K21.9 Gastro-esophageal reflux disease without esophagitis; R06.02 Shortness of breath; R93.1 Abnormal findings on diagnostic imaging of heart and coronary circulation; R94.39 Abnormal result of other cardiovascular function study; Z79.4 Long term (current) use of insulin; Z79.899 Other long term (current) drug therapy; Z87.891 Personal history of nicotine dependence; Z95.1 Presence of aortocoronary bypass graft; Z95.5 Presence of coronary angioplasty implant and graft
CPT/HCPCS: 36415; 80048; 85025; 85610; 85730; 93459; 93567; 99152; 99153; J7040; Q9967; C1769; C1894

== ENCOUNTER → 2020-12-02 09:02 | Outpatient (CLI) | payer MEDICARE, OTHER, SELFPAY ==
[2020-06-09 15:37] VITALS: BMI 34.2
--- NOTE | 2020-12-04 07:47 | PFT ---
INTRODUCTION: The patient is a 69-year-old male that presents for pulmonary function studies secondary to a diagnosis of dyspnea. Respiratory therapy reported good patient effort. Bronchodilators were used during testing. INTERPRETATION: Forced expiration spirometry demonstrates no evidence of a large airways obstructive ventilatory defect. There was no significant response to aerosolized bronchodilators. Spirograms are of good quality and plateau normally. Body plethysmography was performed and reveals lung volumes to be within normal limits. Diffusing capacity by single breath CO is also within normal limits. IMPRESSION: Grossly normal pulmonary function studies.
== END ==
PROVIDERS: PCP Family Medicine; Referring Provider Physician Assistant Medical; Visit Provider Physician Assistant Medical
DX: R06.00 Dyspnea, unspecified (principal)
CPT/HCPCS: 94060; 94726; 94729

== ENCOUNTER → 2021-01-24 07:20 | Outpatient (CLI) | payer MEDICARE, OTHER, SELFPAY ==
[2020-06-09 15:37] VITALS: BMI 34.2
--- NOTE | 2021-01-24 07:25 | US_ITS ---
STUDY: THYROID ULTRASOUND REASON FOR EXAM: Male, 70 years old. THYROID MASS TECHNIQUE: Ultrasound evaluation of the thyroid was performed with real-time and static garcia-scale imaging. COMPARISON: 06.07.20 FINDINGS: RIGHT LOBE: The right lobe of the thyroid gland measures 4.5x2.6 cm. There is a homogeneous echotexture. There is a nodule. This is 30 x 20 x 20 mm. The lesion is solid with regular margins and intra-nodular doppler flow. LEFT LOBE: The left lobe of the thyroid gland measures 4.8x2.3 cm. There is a homogeneous echotexture. There is a nodule. This is 31 x 21 x 21 mm.The lesion is solid with regular margins and intra-nodular doppler flow. ISTHMUS: The isthmus measures 2.2 mm. The regional lymph nodes are abnormal in appearance. The lymph nodes have a replaced fatty hilum. US/Thyroid IMPRESSION: There are RIGHT nodules. This nodule is solid or almost completely solid, hyperechoic or isoechoic, [id number], is lobulated or irregular and contains no echogenic foci. TI-RADS points: 5. TI-RADS category: TR4. This nodule is moderately suspicious. Recommend FNA evaluation. There are left nodules. This nodule is solid or almost completely solid, hyperechoic or isoechoic, [id number], is lobulated or irregular and contains no echogenic foci. TI-RADS points: 5. TI-RADS category: TR4. This nodule is moderately suspicious. Recommend FNA evaluation. Since the prior study, both nodules have enlarged. Electronically Signed: Nestor Carias MD at 15:25 EST , Service support ,
== END ==
PROVIDERS: PCP Family Medicine; Referring Provider Otolaryngology; Visit Provider Otolaryngology
DX: D44.0 Neoplasm of uncertain behavior of thyroid gland (principal)
CPT/HCPCS: 76536

== ENCOUNTER 2021-03-01 06:57 | Outpatient (CLI) | payer MEDICARE, OTHER, SELFPAY ==
[2020-06-09 15:37] VITALS: BMI 34.2
--- NOTE | 2021-03-01 | ASPIG_PTH ---
PATIENT: DOMINGA TREJO LOC: [facility]#:[id number] AGE/SX: 70/M ROOM: RE03/01/[address]: Dr. Wilbert Waters DO : 1950 BED: DIS: 03/01/2021 SPEC #: [id number] RECD: 03/01/21 10:00 STATUS: DANIELLE CRISTHIAN #: [id number] JULIA: 03/01/21 00:[address]: Wilbert Waters DEPT: CYTOLOGY RECD BY: Tadeo Sheridan ENTERED: 03/01/21 13:06 SP TYPE: ASP OUT OTHR DR: Dr. Miguel Love MD Tissues: Thyroid gland, NOS Procedures: FNA Specimen Adequacy Special Stain Group II Surgery Specimen Level IV Cytology Other HEADER OPERATION: Left thyroid ultrasound-guided fine needle aspiration PRE-OP DIAGNOSIS: Left thyroid mass TISSUE SUBMITTED: Left thyroid DIAGNOSIS CYTOLOGY Left thyroid mass, ultrasound-guided FNA (smears and cell block): Atypical follicular cells of undetermined significance. Adequate for evaluation. See cytology study and comment. NANDO:jacki 03/02/2021 COMMENT The specimen is evaluated at the time of FNA by Dr. Farooq. Immediate Evaluation = Follicular cells present. Adequate for evaluation. Correlation with clinical, radiologic findings and appropriate follow up are necessary. Case has been reviewed in consultation with Dr. Valles who concurs with the above diagnosis. IDC:AM CYTOLOGY STUDY Slides are reviewed. The smears also show follicular cells with overcrowding and microfollicle formation. CYTOLOGY GROSS Received in three passes is 1 ml of bloody fluid labeled with the patient's name, and designated left thyroid. Nine imprints and eight paps are made from the submitted fluid and the rest is added to CytoLyt for cell block preparation. Submitted for cytology study. / NANDO:jacki 03/01/2021 TC:5 CPT: 28183, 68824, 02068
--- NOTE | 2021-03-01 07:03 | US_ITS ---
PROCEDURE: ULTRASOUND GUIDED LEFT THYROID FNA/BIOPSY. DATE: 03/01/2021. INDICATION: Male, 70 years old. Left thyroid mass. Comparison is made with prior sonogram of the thyroid gland dated 01/24/2021. PHYSICIAN: Ant Lopez M.D. MEDICATIONS: 2% lidocaine administered subcutaneously for local anesthesia. ACCESS SITE: Left - anterior approach. NEEDLE: 25-gauge FNA needle. SPECIMEN: Multiple FNA specimen collected and given to pathology. EBL: None. COMPLICATIONS: None immediate. PROCEDURE: The risks, benefits, and alternatives to the procedure were explained to the patient. The specific risk of hemorrhage requiring further treatment or intervention was detailed and accepted. Written informed consent was obtained. The patient was brought into the ultrasound room and placed in the supine position on the stretcher. An appropriate entry site was identified. The overlying skin was prepped and draped in the usual sterile fashion. 2% lidocaine was administered subcutaneously for local anesthesia. Under ultrasound guidance, a 25-gauge FNA needle was advanced into the lesion. Aspiration was performed and the needle was withdrawn. A total of 4 passes were performed with specimen collected and given to the pathologist who was present during the procedure. Hemostasis was achieved with manual compression. Repeat ultrasound images of the biopsy area was performed which demonstrated no gross bleeding or hematoma. An antibiotic ointment dressing was placed and the patient was given an icepack. The patient tolerated the procedure well without immediate complications. The patient was discharged in stable condition. US/FNA 1st Biopsy w/ US IMPRESSION: Successful ultrasound-guided left thyroid nodule FNA/biopsy, as described above. Electronically Signed: Ant Lopez MD at 9:11 EST , Service support ,
== END 2021-03-01 23:59 | disposition home or self-care (01) ==
PROVIDERS: PCP Family Medicine; Referring Provider Otolaryngology; Visit Provider Otolaryngology
DX: D34 Benign neoplasm of thyroid gland (principal)
CPT/HCPCS: 60100; 10005; 88161; 88172; 88305; 88313

== ENCOUNTER 2021-03-21 12:01 | Outpatient (CLI) | payer MEDICARE, OTHER, SELFPAY ==
[2020-06-09 15:37] VITALS: BMI 34.2
--- NOTE | 2021-03-21 | ASPIG_PTH ---
PATIENT: DOMINGA TREJO LOC: [facility]#:[id number] AGE/SX: 70/M ROOM: RE03/21/[address]: Dr. Wilbert Waters DO : 1950 BED: DIS: 03/21/2021 SPEC #: [id number] RECD: 03/21/21 14:09 STATUS: DANIELLE CRISTHIAN #: [id number] JULIA: 03/21/21 00:[address]: Wilbert Waters DEPT: CYTOLOGY RECD BY: Christine Powell ENTERED: 03/21/21 14:10 SP TYPE: ASP OUT OTHR DR: Dr. Miguel Love MD Tissues: A - Thyroid gland, NOS B - Thyroid gland, NOS Procedures: FNA Specimen Adequacy Special Stain Group II Surgery Specimen Level IV Cytology Other HEADER OPERATION: Ultrasound-guided thyroid biopsy, right and left PRE-OP DIAGNOSIS: Right and left thyroid nodule TISSUE SUBMITTED: A ? FNA left thyroid nodule fluid, B - FNA right thyroid nodule DIAGNOSIS CYTOLOGY A. Left thyroid nodule, ultrasound-guided fine needle aspiration (smears and cell block): Adequate for evaluation. Atypia of undetermined clinical significance. See comment. B. Right thyroid nodule, ultrasound-guided fine needle aspiration (smears and cell block): Adequate for evaluation. Follicular lesion of undetermined clinical significance. See comment. AM:jacki 03/22/2021 COMMENT The specimen is evaluated at the time of FNA by Dr. Valles. Immediate Evaluation: Pass 1 ? Follicular cells present. Pass 2 ? Blood and rare benign follicular cells. Pass 2 ? Follicular cells present. A & B. Per recommendations and a clinician-approved plan, genomic testing (Afirma) has been submitted. Case has been reviewed in consultation with Dr. Farooq who concurs with the above diagnosis. IDC:SJ Reference is made to the patient's previous left thyroid, ultrasound-guided fine needle aspiration ([id number]) in which atypical follicular cells of undetermined significance was identified. CYTOLOGY STUDY Slides are reviewed. CYTOLOGY GROSS A - Received is 30 ml of red cloudy fluid labeled with the patient's name and and designated per the requisition as left thyroid. Submitted for cytology preparation including cell block. B - Received is 30 ml of red cloudy fluid labeled with the patient's name and and designated per the requisition as right thyroid. Submitted for cytology preparation including cell block. / jacki 03/21/2021 TC:? CPT: 15103 x2, 83254 x3, 36333 x2 ADDENDUM ADDENDUM ADDENDUM ADDENDUM ADDENDUM ADDENDUM ADDENDUM ADDENDUM ADDENDUM ADDENDUM ADDENDUM ADDENDUM ADDENDUM ADDENDUM ADDENDUM ADDENDUM 05/15/2021 09:49 ADDENDUM 05/15/2021 09:49 ADDENDUM 05/15/2021 09:49 ADDENDUM 05/15/2021 09:49 ADDENDUM 05/15/2021 09:49 AFIRMA REPORT RESULTS: Block A ? Thyroid, left side, 3.1 cm MTC: Negative Parathyroid: Negative BRAF p. V600E c. 1799T>A: Negative RET/PTC1, RET/PTC3: Not detected Block B ? Thyroid, right side, 3.0 cm MTC: Negative Parathyroid: Negative BRAF p. V600E c. 1799T>A: Negative RET/PTC1, RET/PTC3: Not detected Please see complete report in e-charge or EMR
--- NOTE | 2021-03-21 12:04 | US_ITS ---
PROCEDURE: ULTRASOUND GUIDED RIGHT THYROID FNA/BIOPSY. DATE: 03/21/2021. INDICATION: Male, 70 years old. Suspicious right thyroid nodule. PHYSICIAN: Ant Lopez M.D. MEDICATIONS: 2% lidocaine administered subcutaneously for local anesthesia. ACCESS SITE: Right - anterior approach. NEEDLE: 25-gauge FNA needle. SPECIMEN: Multiple FNA specimen collected and given to pathology. EBL: None. COMPLICATIONS: None immediate. PROCEDURE: The risks, benefits, and alternatives to the procedure were explained to the patient. The specific risk of hemorrhage requiring further treatment or intervention was detailed and accepted. Written informed consent was obtained. The patient was brought into the ultrasound room and placed in the supine position on the stretcher. An appropriate entry site was identified. The overlying skin was prepped and draped in the usual sterile fashion. 2% lidocaine was administered subcutaneously for local anesthesia. Under ultrasound guidance, a 25-gauge FNA needle was advanced into the lesion. Aspiration was performed and the needle was withdrawn. A total of 5 passes were performed with specimen collected and given to the pathologist who was present during the procedure. Hemostasis was achieved with manual compression. Repeat ultrasound images of the biopsy area was performed which demonstrated no gross bleeding or hematoma. An antibiotic ointment dressing was placed and the patient was given an icepack. The patient tolerated the procedure well without immediate complications. The patient was discharged in stable condition. IMPRESSION: Successful ultrasound-guided right thyroid nodule FNA/biopsy, as described above. Electronically Signed: Ant Lopez MD at 14:20 EST , PROCEDURE: ULTRASOUND GUIDED LEFT THYROID FNA/BIOPSY. DATE: 03/21/2021 INDICATION: Male, 70 years old. Suspicious left thyroid nodule. PHYSICIAN: Ant Lopez M.D. MEDICATIONS: 2% lidocaine administered subcutaneously for local anesthesia. ACCESS SITE: Left - anterior approach. NEEDLE: 25-gauge FNA needle. SPECIMEN: Multiple FNA specimen collected and given to pathology. EBL: None. COMPLICATIONS: None immediate. PROCEDURE: The risks, benefits, and alternatives to the procedure were explained to the patient. The specific risk of hemorrhage requiring further treatment or intervention was detailed and accepted. Written informed consent was obtained. The patient was brought into the ultrasound room and placed in the supine position on the stretcher. An appropriate entry site was identified. The overlying skin was prepped and draped in the usual sterile fashion. 2% lidocaine was administered subcutaneously for local anesthesia. Under ultrasound guidance, a 25-gauge FNA needle was advanced into the lesion. Aspiration was performed and the needle was withdrawn. A total of 6 passes were performed with specimen collected and given to the pathologist who was present during the procedure. Hemostasis was achieved with manual compression. Repeat ultrasound images of the biopsy area was performed which demonstrated no gross bleeding or hematoma. An antibiotic ointment dressing was placed and the patient was given an icepack. The patient tolerated the procedure well without immediate complications. The patient was discharged in stable condition. US/FNA 1st Biopsy w/ US IMPRESSION: Successful ultrasound-guided left thyroid nodule FNA/biopsy, as described above. Electronically Signed: Ant Lopez MD at 14:22 [facility] ,
[2021-03-21] MEDS: Lidocaine 2% (20 ml mdv) 20 ML Vial INFILT (13:30)
== END 2021-03-21 23:59 | disposition home or self-care (01) ==
LOC: US 12:02
PROVIDERS: PCP Family Medicine; Referring Provider Otolaryngology; Visit Provider Otolaryngology
DX: E04.1 Nontoxic single thyroid nodule (principal)
CPT/HCPCS: 10005; 10006; 88161; 88172; 88305; 88313

== ENCOUNTER 2021-04-04 15:19 | Outpatient (CLI) | payer MEDICARE, OTHER, SELFPAY ==
[2020-06-09 15:37] VITALS: BMI 34.2
[2021-04-04 17:36] LABS: Hematocrit 46.8 % (40-54); Mean Corp Hgb Conc 32.1 g/dL (32-36); Mean Corpuscular Hgb 28.6 pg (27.0-32.0); Mean Corpuscular Volume 89.3 fL (80-94); Mean Platelet Vol. 11.2 fl (6.2-12.0); Platelet Count 138 K/mm3 (150-450); RBC Distribution Width CV 15.1 % (11.6-14.6); RBC Distribution Width SD 49.1 fl (35.1-43.9); Red Blood Count 5.24 M/mm3 (4.6-6.2); White Blood Count 5.9 K/mm3 (4.4-11.0)
[2021-04-04 17:42] LABS: International Normalized Ratio 0.9; Prothrombin Time (Protime)PT. 11.9 SECONDS (11.7-14.9)
[2021-04-04 17:53] LABS: Anion Gap 5 (5-15); BUN 13 mg/dL (7-18); BUN/Creat Ratio 11.5 RATIO (10-20); Calcium,Total 8.8 mg/dL (8.5-10.1); Chloride 106 mmol/L (98-107); Creatinine, Serum 1.13 mg/dL (0.70-1.30); EST Glomerular Filtration Rate 69 mL/min (>60); Est Glom Filt Rate - Afr Amer 83 mL/min (>60); Glucose 143 mg/dL (74-106); Potassium 4.2 mmol/L (3.5-5.1); Sodium Level 139 mmol/L (136-145)
== END 2021-04-04 23:59 | disposition home or self-care (01) ==
LOC: MTLAB 15:22
PROVIDERS: PCP Family Medicine; Referring Provider Nurse Practitioner Family; Visit Provider Nurse Practitioner Family
DX: R51.9 Headache, unspecified (principal); Z86.79 Personal history of other diseases of the circulatory system
CPT/HCPCS: 36415; 80048; 85027; 85610

== ENCOUNTER 2021-04-14 08:04 | Outpatient (CLI) | payer MEDICARE, OTHER, SELFPAY ==
[2020-06-09 15:37] VITALS: BMI 34.2
--- NOTE | 2021-04-14 08:06 | CT_ITS ---
STUDY: CT BRAIN WITHOUT CONTRAST REASON FOR EXAM: Male, 70 years old. New headaches; hx spontaneous subdural hematoma RADIATION DOSAGE (If Supplied By Facility): CTDIvol = ( 44.99 ) mGy, DLP = ( 812.98 ) mGycm TECHNIQUE: Transaxial CT imaging of the brain was performed without administration of intravenous contrast material. Individualized dose optimization techniques were used for this CT. COMPARISON: Comparison is made with prior study dated 06/14/2020. FINDINGS: Normal soft tissue structures. The patient is status post left frontoparietal craniotomy. Foreign holes are seen in the right frontal bone and right posterior parietal occipital bones. There is mild cerebral atrophy with widening of the extra-axial spaces and ventricular dilatation. There are areas of decreased attenuation within the white matter tracts of the supratentorial brain, consistent with microvascular disease changes. Normal basal ganglia and thalami. Normal brainstem. There is mild cerebellar atrophy. There is no intracranial hemorrhage. There are no findings of an acute ischemic infarction. Atherosclerotic calcification of the vertebral arteries and cavernous portions of the internal carotid arteries bilaterally. Mucosal thickening along the inferior aspects of both maxillary sinuses. CT/Brain/Head without Contrast IMPRESSION: Chronic involutional changes of the brain. Electronically Signed: Ant Lopez MD at 8:30 EST ,
== END 2021-04-14 23:59 | disposition home or self-care (01) ==
LOC: CT 08:05
PROVIDERS: PCP Family Medicine; Referring Provider Nurse Practitioner Family; Visit Provider Nurse Practitioner Family
DX: R51.9 Headache, unspecified (principal); Z86.79 Personal history of other diseases of the circulatory system
CPT/HCPCS: 70450

== ENCOUNTER → 2021-09-26 | Outpatient (CLI) | payer MEDICARE, OTHER, SELFPAY ==
[2020-06-09 15:37] VITALS: BMI 34.2
--- NOTE | 2021-09-26 07:24 | ECHOCS_ITS ---
Reason For Study: CAD Procedure This was a 2D Doppler, Color Flow transthoracic echocardiogram. The study was technically difficult. Contrast injection was performed. Exam performed in department. Left Ventricle Mildly dilated left ventricle. Moderate segmental systolic dysfunction (see wall motion). The estimated ejection fraction is 35 %. Stage 1 diastolic dysfunction. Anterio-Basal: Hypokinetic. Posterior-Basal: Hypokinetic. Infero-Basal: Hypokinetic. Basal inferoseptal: Hypokinetic. Mid- Anterior : Hypokinetic. Mid-Lateral : Hypokinetic. Mid-Posterior: Hypokinetic. Mid-Inferior: Hypokinetic. Mid-inferoseptal : Hypokinetic. [place] : Hypokinetic. Right Ventricle Normal RV size. Normal systolic function. Atria The left atrium is mildly enlarged. Normal right atrium. No doppler evidence for ASD. Mitral Valve There is mild mitral annular calcification. Extension of the mitral annular calcification on the base of the posterior mitral valve leaflet. Trivial mitral valve insufficiency. Tricuspid Valve Normal tricuspid valve. Trivial tricuspid valve insufficiency. Unable to estimate RV systolic pressure/pulmonary artery pressure due to technically difficult study. Aortic Valve Trisinus/trileaflet aortic valve. Mild focal aortic valve calcification. Pulmonic Valve The pulmonic valve is not well visualized. Mild (1+) pulmonic valve insufficiency. Great Vessels Normal sized aortic root. Pericardium/Pleural No pericardial effusion. Medication 22 gauge I.V. with prn adaptor inserted into right arm. Diluted definity 2.5ml given slow IV push to enhance endocardial definition. MMode/2D Measurements & Calculations LVIDd: 5.6 cm IVSd: 0.97 cm Ao root diam: 3.0 cm LVIDs: 4.3 cm LVPWd: 0.87 cm RVDd: 3.7 cm FS: 24.4 % LAV(MOD-bp): 47.2 ml LVAd ap4: 36.6 cm2 LVAd ap2: 34.9 cm2 LAV(MOD-bp) Indexed: 22.6 ml/m2 LVLd ap4: 7.8 cm LVLd ap2: 7.3 cm LAV(MOD-sp2): 46.4 ml EDV(MOD-sp4): 139.4 ml EDV(MOD-sp2): 137.4 ml LAV(MOD-sp4): 44.0 ml EDV(sp4-el): 145.8 ml EDV(sp2-el): 142.3 ml LVAs ap4: 27.9 cm2 LVAs ap2: 29.3 cm2 LVLs ap4: 7.3 cm LVLs ap2: 6.7 cm ESV(MOD-sp4): 89.6 ml ESV(MOD-sp2): 106.0 ml ESV(sp4-el): 90.5 ml ESV(sp2-el): 108.6 ml EF(MOD-sp4): 35.7 % EF(MOD-sp2): 22.9 % EF(sp4-el): 37.9 % SV(MOD-sp4): 49.7 ml SV(MOD-sp2): 31.5 ml SV(sp4-el): 55.3 ml LA A4 area: 17.0 cm2 LA dimension(2D): 4.2 cm RA A4 area: 8.7 cm2 Doppler Measurements & Calculations MV E max cornelio: 45.6 cm/sec Lat Peak E' Cornelio: 7.2 cm/sec Med Peak E' Cornelio: 4.2 cm/sec MV A max cornelio: 62.9 cm/sec E/E' lat: 6.3 E/E' med: 10.8 MV E/A: 0.72 Ao V2 max: 142.5 cm/sec LV V1 max: 107.0 cm/sec PA V2 max: 115.4 cm/sec Ao max P.3 mmHg LV V1 max P.7 mmHg PA V2 mean: 91.2 cm/sec Ao V2 mean: 104.4 cm/sec LV V1 mean P.3 mmHg Ao mean P.9 mmHg LV V1 mean: 69.5 cm/sec Ao V2 VTI: 25.4 cm LV V1 VTI: 17.2 cm ECHO/Echo Complete W/ Contrast Interpretation Summary The study was technically difficult. Contrast injection was performed. Mildly dilated left ventricle. Moderate segmental systolic dysfunction (see wall motion). The estimated ejection fraction is 35 %. The left atrium is mildly enlarged. There is mild mitral annular calcification. Extension of the mitral annular calcification on the base of the posterior mitr al valve leaflet. Trivial mitral valve insufficiency. Trivial tricuspid valve insufficiency. Mild focal aortic valve calcification. Mild (1+) pulmonic valve insufficiency. Unable to estimate RV systolic pressure/pulmonary artery pressure due to techni joan difficult study. Stage 1 diastolic dysfunction. Ordering Physician: Sony Escalera Referring Physician: Miguel Love Performed By: Ivis Salamanca RDCS
--- NOTE | 2021-09-26 07:44 | ART_ITS ---
Reason For Study: claudication Procedure A bilateral lower extremity continuous wave Doppler with analog waveform analysis and ankle brachial indexes. Left Segmental Pressures Left brachial= 132mmHg. Left posterior tibial artery = 132mmHg. Left dorsalis pedis artery = 108mmHg. The left dorsalis pedis waveforms are biphasic. The left posterior tibial artery waveforms are triphasic. Right Segmental Pressures Right brachial= 134mmHg. Right posterior tibial artery = 129mmHg. Right dorsalis pedis artery = 108mmHg. The right dorsalis pedis waveforms are biphasic. The right posterior tibial artery waveforms are triphasic. Indices The right ankle brachial index by the dorsalis pedis is .81. The right ankle brachial index by the posterior tibial artery is .96. The left ankle brachial index by the dorsalis pedis is .81. The left ankle brachial index by the posterior tibial artery is .99. VL/Ankle Brachial Index Interpretation Summary Triphasic and biphasic Doppler waveforms are noted at ankle level bilaterally. Pulse-volume recordings appear satisfactory at ankle level bilaterally. Resting ankle-brachi al indices are normal bilaterally. There is no evidence of significant arterial occlusive disease in the lower ext remities bilaterally. Ordering Physician: DOUG GALVAN Performed By: Lan Monroe RVT
== END | disposition home or self-care (01) ==
LOC: CVS 07:17
PROVIDERS: PCP Family Medicine; Referring Provider Internal Medicine Cardiovascular Disease; Visit Provider Internal Medicine Cardiovascular Disease
DX: I70.213 Atherosclerosis of native arteries of extremities with intermittent claudication, bilateral legs (principal); I25.10 Atherosclerotic heart disease of native coronary artery without angina pectoris
CPT/HCPCS: 93306; 93922; Q9957; A4216; C8929

== ENCOUNTER 2021-09-29 09:30 | Outpatient (RCR) | payer MEDICARE, OTHER, SELFPAY ==
[2020-06-09 15:37] VITALS: BMI 34.2
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
--- NOTE | 2021-08-03 09:30 | HP.PTREVAL ---
YESSI CHAVEZ, It has been my pleasure to treat DOMINGA TREJO over the last 9 visits for SPONDYLOTHESIS ,LUMBAR. Please see the progress note below for an update on the physical therapy plan of care! Subjective: Doing okay ..water ex's are helpinh Objective/Function: POSTURE: mild forward posture. GAIT: reciprocal pattrern. MMT: quads/hams 4/5 ,hip flexion 4-/5 ,ankle. LUMBAR ROM: flexion min loss, extension WFL , side glides min loss. FLEXABLITY: hamstrings min loss. ROMBERG: EC/EO 1MIN. SLS/TANDEM STANCE: MIN ASSIST 30SEC X2 Plan Plan: CONT WITH POC. Aquatic therapy for lumbar stabilization, postural exercise, lower extremity strength and flexibility. Balance/Gait/Functional tests - Balance/Special Test Scores Oswestry Low Back Score: 26 Goals Goal 1:: I with Aquatic therapy Goal Time Frame: 4-6 Weeks Goal Progress: Progressing Goal 2:: Patient to demonstrate 50% improvement with improved function and decrease pain to improve ADLS' Goal Time Frame: 4-6 Weeks Goal Progress: Progressing Goal 3:: Patient to improve lumbar ROM for function of recovery to put on shoes Goal Time Frame: 4-6 Weeks Goal Progress: Progressing Goal 4:: Patient to improve back owestry score by 5 points to improve QOL and function. Goal Time Frame: 4-6 Weeks Goal Progress: Progressing Goal 5:: Patient able to walk/stand > than 10mins to improve function and housework tasks Goal Time Frame: 4-6 Weeks Goal Progress: Progressing Anticipated Interventions Patient/Client Instruction: Educate patient on: Condition For the Purpose of:: To decrease pain, To increase ROM, To increase oxygenation perfusion, To improve ability to perform ADL's, To increase tolerance to activity/condition/position, To improve ability of physical actions for home/community/work/leisure, To improve health of tissue, To decrease soft tissue restriction, To increase flexibility/ROM, To reduce risk of recurrence, To improve health and function Therapeutic Exercise to Include: Strength training, Power training, Body mechanics, Postural training, Flexibilty training, In an aquatic setting, Active ROM, Dynamic Lumbar Stabilization Comment: BLE For the Purpose of:: To decrease pain, To increase ROM, To improve muscle performance and motor function, To improve ability to perform ADL's, To increase tolerance to activity/condition/position, To improve ability of physical actions for home/community/work/leisure, To improve gait and locomotor functions, To improve health of tissue, To decrease soft tissue restriction, To increase flexibility/ROM, To reduce risk of recurrence, To improve tolerance to ADL's Please do not hesitate to contact me at [phone] by phone or if you have questions or concerns regarding this new plan of care! Sincerely, Mike Green, PT, Cert MDT, OCS
--- NOTE | 2021-08-25 09:50 | HP.PTREVAL ---
YESSI CHAVEZ, It has been my pleasure to treat DOMINGA TREJO over the last 16 visits for SPONDYLOTHESIS ,LUMBAR. Please see the progress note below for an update on the physical therapy plan of care! Subjective: Patient has some back pain. Aquatic therapy helps with pain. Pain located left LS. Plan for Sep 26 2021 Objective/Function: POSTURE: WFL. GAIT: reciprocal pattern. MMT: quads/hams 4/5,hip flexion left 4-/5 ,right 4/5,ankle 4/5. LUMBAR ROM: flexion mod loss, extension mod loss Plan Plan: Cont with POC. Aquatic therapy for lumbar stabilization, postural exercise, lower extremity strength and flexibility. Balance/Gait/Functional tests - Balance/Special Test Scores Oswestry Low Back Score: 23 Goals Goal 1:: I with Aquatic therapy Goal Time Frame: 4-6 Weeks Goal Progress: Progressing Goal 2:: Patient to demonstrate 50% improvement with improved function and decrease pain to improve ADLS' Goal Time Frame: 4-6 Weeks Goal Progress: Progressing Goal 3:: Patient to improve lumbar ROM for function of recovery to put on shoes Goal Time Frame: 4-6 Weeks Goal Progress: Progressing Goal 4:: Patient to improve back owestry score by 5 points to improve QOL and function. Goal Time Frame: 4-6 Weeks Goal Progress: Progressing Goal 5:: Patient able to walk/stand > than 10mins to improve function and housework tasks Goal Time Frame: 4-6 Weeks Goal Progress: Progressing Anticipated Interventions Patient/Client Instruction: Educate patient on: Condition For the Purpose of:: To decrease pain, To increase ROM, To increase oxygenation perfusion, To improve ability to perform ADL's, To increase tolerance to activity/condition/position, To improve ability of physical actions for home/community/work/leisure, To improve health of tissue, To decrease soft tissue restriction, To increase flexibility/ROM, To reduce risk of recurrence, To improve health and function Therapeutic Exercise to Include: Strength training, Power training, Body mechanics, Postural training, Flexibilty training, In an aquatic setting, Active ROM, Dynamic Lumbar Stabilization Comment: BLE For the Purpose of:: To decrease pain, To increase ROM, To improve muscle performance and motor function, To improve ability to perform ADL's, To increase tolerance to activity/condition/position, To improve ability of physical actions for home/community/work/leisure, To improve gait and locomotor functions, To improve health of tissue, To decrease soft tissue restriction, To increase flexibility/ROM, To reduce risk of recurrence, To improve tolerance to ADL's Please do not hesitate to contact me at [phone] by phone or if you have questions or concerns regarding this new plan of care! Sincerely, Mike Green, PT, Cert MDT, OCS
--- NOTE | 2021-12-27 10:46 | HP.PT.NRP ---
DOMINGA TREJO was seen in my office for initial evaluation on 07/04/21. The following Plan of Care was established for this patient: Initial Frequency: 2x /Week Initial Duration: 4 Weeks Patient/Client Instruction: Educate patient on: Condition For the Purpose of:: To decrease pain, To increase ROM, To increase oxygenation perfusion, To improve ability to perform ADL's, To increase tolerance to activity/condition/position, To improve ability of physical actions for home/community/work/leisure, To improve health of tissue, To decrease soft tissue restriction, To increase flexibility/ROM, To reduce risk of recurrence, To improve health and function Therapeutic Exercise to Include: Strength training, Power training, Body mechanics, Postural training, Flexibilty training, In an aquatic setting, Active ROM, Dynamic Lumbar Stabilization For the Purpose of:: To decrease pain, To increase ROM, To improve muscle performance and motor function, To improve ability to perform ADL's, To increase tolerance to activity/condition/position, To improve ability of physical actions for home/community/work/leisure, To improve gait and locomotor functions, To improve health of tissue, To decrease soft tissue restriction, To increase flexibility/ROM, To reduce risk of recurrence, To improve tolerance to ADL's This patient was last seen in our office . Pertinent comments regarding their Physical therapy will appear below: Patient was seen for PT in Aquatic therapy for lumbar pain ,patient did well in water ex's thus is d/c. At this point I will be discontinuing this patient from physical therapy. I would be happy to see this patient again in the future if found appropriate by the physician. Thank you! Mike Green, PT, Cert MDT, OCS Balance/Gait/Functional tests - Balance/Special Test Scores Oswestry Low Back Score: 5
== END 2021-09-29 19:00 | disposition home or self-care (01) ==
LOC: PT 09:30
PROVIDERS: PCP Family Medicine
DX: M43.16 Spondylolisthesis, lumbar region (principal)
CPT/HCPCS: 97113; 97162; 97530

== ENCOUNTER → 2021-10-06 | Outpatient (CLI) | payer MEDICARE, OTHER, SELFPAY ==
[2020-06-09 15:37] VITALS: BMI 34.2
[2021-10-06 17:20] LABS: Thyroid Stim Hormone (TSH) 0.51 uIU/mL (0.358-3.74)
== END | disposition home or self-care (01) ==
LOC: LAB 14:59
PROVIDERS: PCP Family Medicine; Visit Provider Otolaryngology
DX: C73 Malignant neoplasm of thyroid gland (principal)
CPT/HCPCS: 36415; 84443

== ENCOUNTER → 2021-10-20 | Outpatient (CLI) | payer MEDICARE, OTHER, SELFPAY ==
[2020-06-09 15:37] VITALS: BMI 34.2
[2021-10-20 16:29] LABS: Absolute Lymphocyte Count 1.63 X10^3/uL (0.83-4.51); Absolute Neutrophil Count 3.1 X10^3/uL (2.0-7.7); Basophil# 0.03 X10^3/uL; Basophil% 0.6 % (0-1); Eosinophils% 1.9 % (0-5); Hematocrit 49.7 % (40-54); Hemoglobin 15.8 g/dL (13.0-16.5); Lymphocyte # 1.63 X10^3/ul (0.83-4.51); Mean Corp Hgb Conc 31.8 g/dL (32-36); Mean Corpuscular Volume 91.2 fL (80-94); Mean Platelet Vol. 10.5 fl (6.2-12.0); Monocyte# 0.43 X10^3/uL; Monocyte% 8.2 % (0-10); NRBC Flagged by Analyzer 0 % (0-5); Neutrophil # 3.05 X10^3/uL (2.7-7.7); Neutrophil % 58.1 % (47-70); Platelet Count 142 K/mm3 (150-450); RBC Distribution Width CV 15.2 % (11.6-14.6); RBC Distribution Width SD 49.9 fl (35.1-43.9); Red Blood Count 5.45 M/mm3 (4.6-6.2); White Blood Count 5.3 K/mm3 (4.4-11.0)
[2021-10-20 16:51] LABS: Hemoglobin A1c 7.9 % (3.8-5.6)
[2021-10-20 16:52] LABS: ALB/GLOB Ratio 0.9 RATIO (0.9-2.4); AST(SGOT) 27 U/L (15-37); Alanine Aminotransfer ALT/SGPT 28 U/L (16-61); Albumin, Serum 3.1 g/dL (3.2-5.0); Alkaline Phosphatase 103 U/L (45-117); Anion Gap 6 (5-15); BUN 12 mg/dL (7-18); BUN/Creat Ratio 10.3 RATIO (10-20); Chloride 106 mmol/L (98-107); Cholesterol 160 mg/dL (200); Creatinine, Serum 1.16 mg/dL (0.70-1.30); EST Glomerular Filtration Rate 66 mL/min (>60); Est Glom Filt Rate - Afr Amer 80 mL/min (>60); Globulin 3.3 g/dL (2.2-4.2); Glucose 101 mg/dL (74-106); High Density Lipoprotein 43 mg/dL; PSA,Total - Annual Screen 3.22 ng/mL (0.00-4.00); Potassium 4.5 mmol/L (3.5-5.1); Protein, Total 6.4 g/dL (6.4-8.2); Sodium Level 140 mmol/L (136-145); Triglycerides 236 mg/dL; Very Low Density Lipoprotein 47 mg/dL (5-40)
== END | disposition home or self-care (01) ==
LOC: BIMLAB 15:03
PROVIDERS: PCP Internal Medicine; Referring Provider Internal Medicine; Visit Provider Internal Medicine
DX: E11.9 Type 2 diabetes mellitus without complications (principal); I10 Essential (primary) hypertension
CPT/HCPCS: 36415; 80053; 80061; 83036; 84153; 85025; G0103

== ENCOUNTER → 2021-11-10 | Outpatient (CLI) | payer MEDICARE, OTHER, SELFPAY ==
[2020-06-09 15:37] VITALS: BMI 34.2
--- NOTE | 2021-11-10 07:11 | ECHOLC_ITS ---
Reason For Study: CAD/ASHD Procedure This was a limited 2D transthoracic echocardiogram. The study was technically difficult. Contrast injection was performed. Exam performed in department. Left Ventricle Normal LV size. Mild segmental systolic dysfunction (see wall motion). The estimated ejection fraction is 45 %. Unable to assess diastolic dysfunction. Infero-Basal: Hypokinetic. Mid-Lateral : Hypokinetic. Mid-Posterior: Hypokinetic. Mid-Inferior: Hypokinetic. Right Ventricle Normal RV size. Normal systolic function. Atria Normal left atrium. Normal right atrium. Mitral Valve There is mild mitral annular calcification. Mitral annular calcification onto the posterior mitral valve leaflet. Tricuspid Valve Normal tricuspid valve. Mild tricuspid valve insufficiency. Unable to estimate RV systolic pressure/pulmonary artery pressure due to technically difficult study. Aortic Valve Trisinus/trileaflet aortic valve. Mild focal aortic valve calcification. Pulmonic Valve The pulmonic valve is not well visualized. Great Vessels The aortic root is not well visualized. Pericardium/Pleural No pericardial effusion. Medication 20 gauge I.V. with prn adaptor inserted into right arm. Diluted definity 1ml given slow IV push to enhance endocardial definition. MMode/2D Measurements & Calculations LVIDd: 5.5 cm IVSd: 1.2 cm LA dimension: 4.4 cm LVIDs: 4.0 cm LVPWd: 1.0 cm FS: 27.0 % LVAd ap4: 33.5 cm2 SV(MOD-sp4): 45.5 ml SV(sp4-el): 47.8 ml LVLd ap4: 7.4 cm EDV(MOD-sp4): 125.0 ml EDV(sp4-el): 128.0 ml LVAs ap4: 24.7 cm2 LVLs ap4: 6.5 cm ESV(MOD-sp4): 79.6 ml ESV(sp4-el): 80.2 ml EF(MOD-sp4): 36.4 % EF(sp4-el): 37.3 % ECHO/Echo Limited w/Contrast Interpretation Summary The study was technically difficult. Contrast injection was performed. Mild segmental systolic dysfunction (see wall motion). The estimated ejection fraction is 45 %. Mild tricuspid valve insufficiency. Mild focal aortic valve calcification. Unable to estimate RV systolic pressure/pulmonary artery pressure due to techni joan difficult study. Unable to assess diastolic dysfunction. Ordering Physician: Sony Escalera Referring Physician: Shan Nazario Performed By: Sahil Fong RCS
== END | disposition home or self-care (01) ==
PROVIDERS: PCP Internal Medicine; Referring Provider Internal Medicine Cardiovascular Disease; Visit Provider Internal Medicine Cardiovascular Disease
DX: I25.10 Atherosclerotic heart disease of native coronary artery without angina pectoris (principal)
CPT/HCPCS: 93308; Q9957; A4216; C8924

== ENCOUNTER 2021-12-15 07:36 | Outpatient (CLI) | payer MEDICARE, OTHER, SELFPAY ==
[2020-06-09 15:37] VITALS: BMI 34.2
[2021-12-15 08:52] LABS: Absolute Lymphocyte Count 1.48 X10^3/uL (0.83-4.51); Absolute Neutrophil Count 3.1 X10^3/uL (2.0-7.7); Basophil# 0.03 X10^3/uL; Basophil% 0.6 % (0-1); Eosinophil# 0.09 X10^3/uL; Eosinophils% 1.7 % (0-5); Hematocrit 49.5 % (40-54); Hemoglobin 16.1 g/dL (13.0-16.5); Lymphocyte # 1.48 X10^3/ul (0.83-4.51); Lymphocyte % 28.5 % (19-41); Mean Corp Hgb Conc 32.5 g/dL (32-36); Mean Corpuscular Hgb 29.7 pg (27.0-32.0); Mean Corpuscular Volume 91.3 fL (80-94); Mean Platelet Vol. 10.8 fl (6.2-12.0); Monocyte# 0.51 X10^3/uL; Monocyte% 9.8 % (0-10); NRBC Flagged by Analyzer 0 % (0-5); Neutrophil # 3.05 X10^3/uL (2.7-7.7); Neutrophil % 58.6 % (47-70); Platelet Count 125 K/mm3 (150-450); RBC Distribution Width CV 14.5 % (11.6-14.6); Red Blood Count 5.42 M/mm3 (4.6-6.2); White Blood Count 5.2 K/mm3 (4.4-11.0)
[2021-12-15 09:02] LABS: Protein, Urine (Random) 9.5 mg/dL (<11.9); Protein:Creat Ratio 146 mg/g CRE (0-200)
[2021-12-15 09:13] LABS: PTHIN 42.8 pg/mL (18.4-80.1)
[2021-12-15 09:17] LABS: Vitamin D,25 Hydroxy 45.6 ng/mL
[2021-12-15 09:28] LABS: Albumin, Serum 3.2 g/dL (3.2-5.0); BUN 16 mg/dL (7-18); BUN/Creat Ratio 14.3 RATIO (10-20); Calcium,Total 8.6 mg/dL (8.5-10.1); Chloride 106 mmol/L (98-107); Creatinine, Serum 1.12 mg/dL (0.70-1.30); EST Glomerular Filtration Rate 69 mL/min (>60); Est Glom Filt Rate - Afr Amer 84 mL/min (>60); Glucose 218 mg/dL (74-106); Potassium 4.2 mmol/L (3.5-5.1); Sodium Level 138 mmol/L (136-145)
== END 2021-12-15 23:59 | disposition home or self-care (01) ==
LOC: LAB 07:38
PROVIDERS: PCP Internal Medicine; Referring Provider Internal Medicine Nephrology; Visit Provider Internal Medicine Nephrology
DX: N18.31 Chronic kidney disease, stage 3a (principal); E55.9 Vitamin D deficiency, unspecified
CPT/HCPCS: 36415; 80069; 82306; 82570; 83970; 84156; 85025

== ENCOUNTER 2022-06-01 14:00 | Outpatient (RCR) | payer MEDICARE, OTHER, SELFPAY ==
[2020-06-09 15:37] VITALS: BMI 34.2
--- NOTE | 2022-03-16 14:50 | HP.PTEVAL_ITS ---
Patient's Visit Information ODMINGA TREJO is a 71 year old M referred to Physical Therapy by CHE SMITH with a diagnosis of SPONDYLOSIS WITHOUT MYELOPATHY OR RADICULAOPTHY ,[place]. Date of Evaluation: 03/16/22 Physical Therapist: Mike Green, PT, Cert MDT, OCS - Visit Plan Frequency: 2x /Week Duration: 4 Weeks Plan: PT INTERVETIONS AQUATIC THERAPY WITH LUMBAR ROM/FLEXABILITY ,BLE STRENGTHENING AND DLS - Subjective This 71 y/o male presents to physical therapy with lumbar radiculopathy. Patient has back pain since 2019 . Patient has has been pain management at [facility] had epidural injection then had aplasia . Patient has been in therapy in past in water . Patient over counter teylonal. Patient has no recent diagnostics. Pain located in symmetrical lumbar hamstrings to calf. Aggravating factors walking 1/4 mile , standing ~ 10mins , bending lifting . Alleviating resting . Coughing/sneezing -,Bowel/bladder -. Denies paresthesia/tingling.- Patient symptoms affects sleeping. Patient condition affects QOL and function. Patient has h/o trauma many years ago. SOCAIL: . VOCATION: retired - Pain Bilateral Back Pain Intensity (Out of 10): 9 Pain Intensity Range: 10 Bilateral Lower Extremity Pain Intensity (Out of 10): 0 Pain Intensity Range: 10 - Objective POSTURE: mild forward posture. SYMMTRIES: align. NEURO: denies paresthesia/tingling ,reflexes L3-4,L4-5,L-5-S1 1/3. PALPATION: tender /SI. GAIT: reciprocal gait. MMT: quads/hams 4/5 ,hip flexion 4-/5 ,ankle 5/5. FLEXABLITY: hamstrings min loss. LUMBAR ROM: flexion min/mod loss ,extension min loss ,side glides min loss - Special Tests L/S Slump test left side: Negative L/S Slump test right side: Negative L/S Left Straight Leg Raise: Negative L/S Right Straight Leg Raise: Negative - Balance/Special Test Scores Oswestry Low Back Score: 28 - Goals Goal 1:: [id number] to be I with Aquatic Therapy program for community based program Goal Time Frame: 4-6 Weeks Goal 2:: Patient improve posture/body mechanics for ADLS' Goal Time Frame: 4-6 Weeks Goal 3:: Patient to improve lumbar ROM for function of recovery for ADLS Goal Time Frame: 4-6 Weeks Goal 4:: Patient to improve lumbar ROM for function of recovery to be able to tie shoes Goal Time Frame: 4-6 Weeks Goal 5:: Patient to improve back oswestry score by 5 points to improve QOL Goal Time Frame: 4-6 Weeks - Rehabilitation Potential Physical Therapy Diagnosis: This patient has lumbar radicular symptoms with pain with position and motion testing affects walking/standing impairs housework tasks and ADLS thus benefit From skilled PT Rehabilitation Potential: Good - Anticipated Interventions Patient/Client Instruction: Educate patient on: Condition, Plan of Care For the Purpose of:: To decrease pain, To increase ROM, To improve muscle performance and motor function, To improve ability to perform ADL's, To increase tolerance to activity/condition/position, To improve performance and independence with ADL's, To improve ability of physical actions for home/community/work/leisure, To improve health of tissue, To decrease soft tissue restriction, To increase flexibility/ROM, To prevent re-injury Therapeutic Exercise to Include: Strength training, Endurance training, Balance training, Body mechanics, Postural training, Flexibilty training, In an aquatic setting, Dynamic Lumbar Stabilization For the Purpose of:: To decrease pain, To increase ROM, To improve muscle performance and motor function, To increase tolerance to activity/condition/position, To improve performance and independence with ADL's, To improve ability of physical actions for home/community/work/leisure, To improve health of tissue, To decrease soft tissue restriction, To increase flexibility/ROM, To improve tolerance to ADL's Thank you for the opportunity to evaluate your patient. For Medicare and Medicare HMO plans, please review the plan of care and approve it. It will need to be FAXED BACK to us at [phone] for Medicare purposes. For Medicare only, by signing this I certify the plan of care. Please let me know if there are questions or concerns regarding this plan of care. Physician Signature: Date:
--- NOTE | 2022-04-18 14:48 | HP.PTREVAL ---
CHE SMITH, It has been my pleasure to treat DOMINGA TREJO over the last 9 visits for SPONDYLOSIS WITHOUT MYELOPATHY OR RADICULAOPTHY ,[place]. Please see the progress note below for an update on the physical therapy plan of care! Subjective: Patient will have a cataracts surgery. So will wait for PT in [place]. Extended 10min walking increase back and standing <10 min Objective/Function: POSTURE: mild forward posture. GAIT: reciprocal pattern mild forward posture. LUMBAR ROM: flexion min loss ,extension min loss .side glides min/mod loss. MMT: quads/hams 4/5 ,hip flexion 4-/5 ,ankle 4/5 Plan Plan: COT WITH POC. PT INTERVETIONS AQUATIC THERAPY WITH LUMBAR ROM/FLEXABILITY ,BLE STRENGTHENING AND DLS Balance/Gait/Functional tests - Balance/Special Test Scores Oswestry Low Back Score: 27 Goals Goal 1:: [id number] to be I with Aquatic Therapy program for community based program Goal Time Frame: 4-6 Weeks Goal Progress: Progressing Goal 2:: Patient improve posture/body mechanics for ADLS' Goal Time Frame: 4-6 Weeks Goal Progress: Progressing Goal 3:: Patient to improve lumbar ROM for function of recovery for ADLS Goal Time Frame: 4-6 Weeks Goal Progress: Progressing Goal 4:: Patient to improve lumbar ROM for function of recovery to be able to tie shoes Goal Time Frame: 4-6 Weeks Goal Progress: Progressing Goal 5:: Patient to improve back oswestry score by 5 points to improve QOL Goal Time Frame: 4-6 Weeks Goal Progress: Progressing Anticipated Interventions Patient/Client Instruction: Educate patient on: Condition, Plan of Care For the Purpose of:: To decrease pain, To increase ROM, To improve muscle performance and motor function, To improve ability to perform ADL's, To increase tolerance to activity/condition/position, To improve performance and independence with ADL's, To improve ability of physical actions for home/community/work/leisure, To improve health of tissue, To decrease soft tissue restriction, To increase flexibility/ROM, To prevent re-injury Therapeutic Exercise to Include: Strength training, Endurance training, Balance training, Body mechanics, Postural training, Flexibilty training, In an aquatic setting, Dynamic Lumbar Stabilization For the Purpose of:: To decrease pain, To increase ROM, To improve muscle performance and motor function, To increase tolerance to activity/condition/position, To improve performance and independence with ADL's, To improve ability of physical actions for home/community/work/leisure, To improve health of tissue, To decrease soft tissue restriction, To increase flexibility/ROM, To improve tolerance to ADL's Please do not hesitate to contact me at [phone] by phone or if you have questions or concerns regarding this new plan of care! Sincerely, Mike Green, PT, Cert MDT, OCS
--- NOTE | 2022-06-01 14:18 | HP.PTDCSUM ---
It has been my pleasure to treat DOMINGA TREJO referred by CHE SMITH, with the diagnosis of SPONDYLOSIS WITHOUT MYELOPATHY OR RADICULAOPTHY ,[place] for a total of 18 visit(s). Discharge Date: Please see the following information for a summary of their discharge status. Subjective: PATIENT SEEMS TO BE BETTER..ABLE TO WALK FURTHER Bilateral Back Pain Intensity (Out of 10): 3 Bilateral Lower Extremity Pain Intensity (Out of 10): 3 % Improvement: 50 Objective/Function: POSTURE: mild forward posture. GAIT: reciprocal pattern mild forward posture. LUMBAR ROM: flexion min loss ,extension min loss .side glides min/mod loss. MMT: quads/hams 4/5 ,hip flexion 4-/5 ,ankle 4/5 Goal 1:: [id number] to be I with Aquatic Therapy program for community based program Goal Progress: Goal Met Goal 2:: Patient improve posture/body mechanics for ADLS' Goal Progress: Goal Met Goal 3:: Patient to improve lumbar ROM for function of recovery for ADLS Goal Progress: Goal Met Goal 4:: Patient to improve lumbar ROM for function of recovery to be able to tie shoes Goal Progress: Goal Met Goal 5:: Patient to improve back oswestry score by 5 points to improve QOL Goal Progress: Goal Met Plan: D/C TO OWN ON AQUATIC THERAPY If there are questions or concerns regarding this patient's physical therapy, please feel free to call me at [phone]. Thank you for the referral of this patient. Sincerely, Mike Green, PT, Cert MDT, OCS Balance/Gait/Functional tests - Balance/Special Test Scores Oswestry Low Back Score: 18
== END 2022-06-01 19:00 | disposition home or self-care (01) ==
LOC: PT 14:00
PROVIDERS: PCP Internal Medicine
DX: M47.816 Spondylosis without myelopathy or radiculopathy, lumbar region (principal); M79.18 Myalgia, other site
CPT/HCPCS: 97113; 97162; 97530

== ENCOUNTER → 2022-06-18 | Outpatient (CLI) | payer MEDICARE, OTHER, SELFPAY ==
[2020-06-09 15:37] VITALS: BMI 34.2
--- NOTE | 2022-06-18 12:04 | US_ITS ---
INDICATION: MALIGNANT NEOPLASM OF THYROID GLAND EXAMINATION: Ultrasound US Thyroid (eg thyroid, parathyroid, parotid) TECHNIQUE: Barragan scale and color doppler imaging was performed of the thyroid gland. COMPARISON: FINDINGS: Interval bilateral thyroidectomy. Within the thyroid bed on the right residual tissue is suggested 2.8 x 1.2 x 0.9 cm homogeneous. No evidence of thyroid nodule. Isthmus 0.43 cm AP. Left lobe surgically absent. US/Thyroid IMPRESSION: Residual thyroid tissue on right measuring 2.8 x 1.2 x 0.9 cm. Other etiology less likely. Lymph node lateral to residual right thyroid tissue measuring 1.8 x 0.8 x 0.6 cm. Lateral to the left thyroid bed lymph node 1.7 x 0.9 x 0.4 cm. Given the borderline size of these lymph nodes further evaluation should be considered. Recommend PET CT if clinically warranted. Electronically Signed: Wilbert Aparicio MD, AXEL at 20:09 EDT ,
== END | disposition home or self-care (01) ==
LOC: US 12:04
PROVIDERS: PCP Internal Medicine
DX: C73 Malignant neoplasm of thyroid gland (principal)
CPT/HCPCS: 76536

== ENCOUNTER → 2022-07-27 | Outpatient (CLI) | payer MEDICARE, OTHER, SELFPAY ==
[2020-06-09 15:37] VITALS: BMI 34.2
[2022-07-27 16:32] LABS: Absolute Lymphocyte Count 1.39 X10^3/uL (0.83-4.51); Basophil# 0.03 X10^3/uL; Basophil% 0.5 % (0-1); Eosinophil# 0.07 X10^3/uL; Eosinophils% 1.2 % (0-5); Hematocrit 49.2 % (40-54); Hemoglobin 16.1 g/dL (13.0-16.5); Lymphocyte # 1.39 X10^3/ul (0.83-4.51); Lymphocyte % 23.8 % (19-41); Mean Corp Hgb Conc 32.7 g/dL (32-36); Mean Corpuscular Hgb 31.6 pg (27.0-32.0); Mean Corpuscular Volume 96.5 fL (80-94); Mean Platelet Vol. 10.7 fl (6.2-12.0); Monocyte# 0.37 X10^3/uL; Monocyte% 6.3 % (0-10); NRBC Flagged by Analyzer 0 % (0-5); Neutrophil # 3.97 X10^3/uL (2.7-7.7); Neutrophil % 67.9 % (47-70); Platelet Count 138 K/mm3 (150-450); RBC Distribution Width CV 13.3 % (11.6-14.6); RBC Distribution Width SD 47.8 fl (35.1-43.9); White Blood Count 5.9 K/mm3 (4.4-11.0)
[2022-07-27 16:50] LABS: Hemoglobin A1c 6.9 % (3.8-5.6)
[2022-07-27 16:54] LABS: ALB/GLOB Ratio 1.4 RATIO (0.9-2.4); AST(SGOT) 28 U/L (15-37); Alanine Aminotransfer ALT/SGPT 27 U/L (16-61); Albumin, Serum 3.6 g/dL (3.2-5.0); Alkaline Phosphatase 78 U/L (45-117); Anion Gap 7 (5-15); BUN 15 mg/dL (7-18); BUN/Creat Ratio 11.6 RATIO (10-20); Calcium,Total 8.5 mg/dL (8.5-10.1); Chloride 108 mmol/L (98-107); Cholesterol 168 mg/dL (200); Creatinine, Serum 1.29 mg/dL (0.70-1.30); EST Glomerular Filtration Rate 59 mL/min (>60); Est Glom Filt Rate - Afr Amer 71 mL/min (>60); Globulin 2.6 g/dL (2.2-4.2); Glucose 172 mg/dL (74-106); High Density Lipoprotein 45 mg/dL; Protein, Total 6.2 g/dL (6.4-8.2); Sodium Level 140 mmol/L (136-145); Thyroid Stim Hormone (TSH) 0.52 uIU/mL (0.358-3.74); Triglycerides 243 mg/dL; Very Low Density Lipoprotein 49 mg/dL (5-40)
[2022-07-27 17:01] LABS: Microalbumin,Random Urine < 5.0 mg/L (NO RANGE EST.)
== END | disposition home or self-care (01) ==
LOC: BIMLAB 15:07
PROVIDERS: PCP Internal Medicine; Visit Provider Internal Medicine
DX: E11.9 Type 2 diabetes mellitus without complications (principal); I10 Essential (primary) hypertension; E03.9 Hypothyroidism, unspecified
CPT/HCPCS: 36415; 80053; 80061; 82043; 82570; 83036; 84443; 85025

== ENCOUNTER → 2022-09-12 | Outpatient (CLI) | payer MEDICARE, OTHER, SELFPAY ==
[2020-06-09 15:37] VITALS: BMI 34.2
--- NOTE | 2022-09-12 08:19 | ART_ITS ---
Reason For Study: Bilateral calf claudication Procedure A bilateral lower extremity continuous wave Doppler with analog waveform analysis and ankle brachial indexes. Left Segmental Pressures Left brachial= 109mmHg. Left posterior tibial artery = 94mmHg. Left dorsalis pedis artery = 83mmHg. Left digit = 55 mmHg. The left dorsalis pedis waveforms are biphasic. The left posterior tibial artery waveforms are biphasic. Right Segmental Pressures Right brachial= 111mmHg. Right posterior tibial artery = 79mmHg. Right dorsalis pedis artery = 73mmHg. Right digit = 49 mmHg. The right dorsalis pedis waveforms are monophasic. The right posterior tibial artery waveforms are monophasic. Indices The right ankle brachial index by the dorsalis pedis is 0.66. The right ankle brachial index by the posterior tibial artery is 0.71. The right digital-brachial index is 0.44. The left ankle brachial index by the dorsalis pedis is 0.75. The left ankle brachial index by the posterior tibial artery is 0.85. The left digital-brachial index is 0.50. VL/Ankle Brachial Index Interpretation Summary Right MIL[place] 0.71, moderate arterial insufficiency. Doppler/PVR waveforms of the r ight ankle moderately diminished at rest. Left [place] 0.85, moderate arterial insufficiency. Doppler/PVR waveforms of the le ft ankle moderately diminished at rest. Ordering Physician: Lg Langford Referring Physician: Shan Nazario Performed By: Larisa Jimenez RVT
== END | disposition home or self-care (01) ==
LOC: CVS 08:18
PROVIDERS: PCP Internal Medicine; Referring Provider Psychiatry & Neurology Neurology; Visit Provider Psychiatry & Neurology Neurology
DX: I73.9 Peripheral vascular disease, unspecified (principal)
CPT/HCPCS: 93922

== ENCOUNTER → 2022-09-13 | Outpatient (CLI) | payer MEDICARE, OTHER, SELFPAY ==
[2020-06-09 15:37] VITALS: BMI 34.2
--- NOTE | 2022-09-13 14:17 | CT_ITS ---
STUDY: CT BRAIN WITHOUT CONTRAST REASON FOR EXAM: Male, 71 years old. Headache after trauma RADIATION DOSAGE (If Supplied By Facility): CTDIvol = ( 47.06 ) mGy, DLP = ( 960.91 ) mGycm TECHNIQUE: Transaxial CT imaging of the brain was performed without administration of intravenous contrast material. Individualized dose optimization techniques were used for this CT. COMPARISON: 04/14/2021 FINDINGS: Normal soft tissue structures. Evidence of previous left craniotomy, and right frontal louann hole Normal size ventricles and extra-axial spaces for the patient''s age. Normal white matter tracts of the cerebral hemispheres. Normal basal ganglia and thalami. Normal brainstem. Normal cerebellum. There is no intracranial hemorrhage. There are no findings of an acute ischemic infarction. Normal visualized paranasal sinuses. CT/Brain/Head without Contrast IMPRESSION: Chronic involutional changes of the brain, no acute hemorrhage. Electronically Signed: Bernard Foss MD at 14:56 EDT ,
== END | disposition home or self-care (01) ==
LOC: CT 14:16
PROVIDERS: PCP Internal Medicine; Referring Provider Physician Assistant Medical; Visit Provider Physician Assistant Medical
DX: S06.5XAA Traumatic subdural hemorrhage with loss of consciousness status unknown, initial encounter (principal); X58.XXXA Exposure to other specified factors, initial encounter
CPT/HCPCS: 70450

== ENCOUNTER → 2022-11-14 | Outpatient (CLI) | payer MEDICARE, OTHER, SELFPAY ==
[2020-06-09 15:37] VITALS: BMI 34.2
--- NOTE | 2022-11-14 15:13 | RAD_ITS ---
STUDY: X-RAY - RIGHT KNEE REASON FOR EXAM: Male, 71 years old. Bilateral knee pain. TECHNIQUE: 3 view(s) of the knee. COMPARISON: None. FINDINGS: Osteopenia. Moderate arthrosis of the medial compartment. Mild arthrosis of the lateral compartment. Mild arthrosis of the patellofemoral compartment. Small suprapatellar joint effusion. Vascular calcification. RAD/Knee 3 Views IMPRESSION: Osteopenia with tricompartmental arthrosis and joint effusion. Electronically Signed: Chente Trammell MD at 15:54 EDT ,
--- NOTE | 2022-11-14 15:16 | RAD_ITS ---
STUDY: X-RAY - LEFT KNEE REASON FOR EXAM: Male, 71 years old. Bilateral knee pain. TECHNIQUE: 3 view(s) of the knee. COMPARISON: None. FINDINGS: Osteopenia. [id number] medial compartmental arthrosis without osteophytes. Mild arthrosis of the lateral femorotibial compartment. Mild arthrosis of the patellofemoral compartment. Small suprapatellar joint effusion. RAD/Knee 3 Views IMPRESSION: Osteopenia, tricompartmental arthrosis as described and small joint effusion. Electronically Signed: Chente Trammell MD at 15:56 EDT ,
[2022-11-14 16:01] LABS: Anion Gap 5 (5-15); BUN 17 mg/dL (7-18); BUN/Creat Ratio 13.9 RATIO (10-20); Chloride 112 mmol/L (98-107); Creatinine, Serum 1.22 mg/dL (0.70-1.30); EST Glomerular Filtration Rate 62 mL/min (>60); Est Glom Filt Rate - Afr Amer 76 mL/min (>60); Glucose 98 mg/dL (74-106); Potassium 4.6 mmol/L (3.5-5.1); Sodium Level 142 mmol/L (136-145)
== END | disposition home or self-care (01) ==
LOC: BIMLAB 14:40 → RAD 15:08
PROVIDERS: PCP Internal Medicine; Referring Provider Internal Medicine; Visit Provider Internal Medicine
DX: E11.9 Type 2 diabetes mellitus without complications (principal); M25.561 Pain in right knee; M25.562 Pain in left knee
CPT/HCPCS: 36415; 73562; 80048

== ENCOUNTER → 2022-11-29 | Outpatient (CLI) | payer MEDICARE, OTHER, SELFPAY ==
[2020-06-09 15:37] VITALS: BMI 34.2
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
== END | disposition home or self-care (01) ==
LOC: MRI 15:17
PROVIDERS: PCP Internal Medicine; Referring Provider Psychiatry & Neurology Neurology; Visit Provider Psychiatry & Neurology Neurology
DX: M54.50 Low back pain, unspecified (principal)
CPT/HCPCS: 72148

== ENCOUNTER 2022-12-13 14:30 | Outpatient (RCR) | payer MEDICARE, OTHER, SELFPAY ==
[2020-06-09 15:37] VITALS: BMI 34.2
--- NOTE | 2022-11-16 09:56 | HP.PTEVAL_ITS ---
Patient's Visit Information Visit Information Visit Information: DOMINGA TREJO is a 71 year old M referred to Physical Therapy by Dr. Shan Nazario MD with a diagnosis of Bilateral Knee Pain. Date of Evaluation: 11/16/22 Physical Therapist: Vicenta Luciano DPT Visit Plan Frequency: 2x /Week Duration: 4 Weeks Plan: Focus on LE and core strength/stabilization and flexibility- functional mobility HEP Given IE: kitchen sink Subjective Subjective: Patient reports that he has had back issues for a long time- his insurance is not covering a procedure for his back so he is taking medication- he is having pain in his knees. He is not as active as the doctors would like him to be. He has had x-rays on both knees- which showed OA. 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 He has pain in the calf and sometimes in the anterior knee and in the crease behind the knee- it travels usp into the thighs- then it can travel up into the spine. Sharp pains in the front of the knee caps. The left is worse than the right. Feels like they knee may give out on him. He does not use a cane or walker- but has been thinking about getting a walking stick. Best: 310 Worst: 10/10. Eases: get off his feet. Sleep: they use to but he saw Dr. Langford gave him muscle relaxers. Fully I with ADL's. PMHx/Meds: no changes see PCP notes Objective Objective: Posture: FH, RS- can correct with verbal cues but does not maintain Gait: slow gait pattern-external rotation at the hips Stairs: asc- recip with no HR- desc non recip poor control with 2 HR HR/TR: able with UE A SLS: weight shift only ROM: WFL in bilateral knees Strength: Core: poor Hip: 4/5 throughout Knee: Extn: Right: 37 Left: 32 Flexion: Right: 26 left: 25 Ankle: 5/5 Balance/Special Test Scores Lower Extremity Functional Score: 12 30 Second Chair Rise Test Seconds: 10 Goals Goal 1:: Patient will be I with HEP and progression Goal Time Frame: 4-6 Weeks Goal 2:: Patient will asc/desc 8 stairs recip with 1 HR with good control Goal Time Frame: 4-6 Weeks Goal 3:: Patient will sit to stand x16 in 30 sec Goal Time Frame: 4-6 Weeks Goal 4:: Patient will SLS for 5 seconds without LOB Goal Time Frame: 4-6 Weeks Goal 5:: Patient will report 80% improvement Goal Time Frame: 4-6 Weeks Rehabilitation Potential Physical Therapy Diagnosis: Patient presents with hypomobility- he has decrease LE and core strength/stabilization, flex and muscular endurance leading to abnormal gait and decreased ability to participate with ADL's. Rehabilitation Potential: Good Anticipated Interventions Patient/Client Instruction: Educate patient on: Benefits of Fitness Program Therapeutic Exercise to Include: Strength training, Endurance training, Balance training, Coordination, Agility training, Body mechanics, Postural training, Flexibilty training, Gait and locomotor training, Neuromotor development, Dynamic Lumbar Stabilization and Scapular Strength/Stabilization Cryotherapy (ice pack, ice massage): Yes Thermo therapy (hot pack): Yes Text: Thank you for the opportunity to evaluate your patient. For Medicare and Medicare HMO plans, please review the plan of care and approve it. It will need to be FAXED BACK to us at [phone] for Medicare purposes. For Medicare only, by signing this I certify the plan of care. Please let me know if there are questions or concerns regarding this plan of care. Physician Signature: Date:
== END 2022-12-13 19:00 | disposition home or self-care (01) ==
LOC: PT 14:30
PROVIDERS: PCP Internal Medicine; Referring Provider Internal Medicine; Visit Provider Internal Medicine
DX: M25.561 Pain in right knee (principal); M25.562 Pain in left knee
CPT/HCPCS: 97110; 97162; 97164

== ENCOUNTER → 2023-02-27 | Outpatient (CLI) | payer MEDICARE, OTHER, SELFPAY ==
[2020-06-09 15:37] VITALS: BMI 34.2
[2023-02-27 17:04] LABS: Anion Gap 7 (5-15); BUN 15 mg/dL (7-18); BUN/Creat Ratio 12.2 RATIO (10-20); Calcium,Total 9.1 mg/dL (8.5-10.1); Chloride 106 mmol/L (98-107); Creatinine, Serum 1.23 mg/dL (0.70-1.30); EST Glomerular Filtration Rate 62 mL/min (>60); Est Glom Filt Rate - Afr Amer 75 mL/min (>60); Glucose 174 mg/dL (74-106); Potassium 4.4 mmol/L (3.5-5.1); Sodium Level 143 mmol/L (136-145)
== END | disposition home or self-care (01) ==
LOC: BIMLAB 15:07
PROVIDERS: PCP Internal Medicine; Referring Provider Internal Medicine; Visit Provider Internal Medicine
DX: E11.9 Type 2 diabetes mellitus without complications (principal)
CPT/HCPCS: 36415; 80048

== ENCOUNTER 2023-03-09 20:43 | Emergency (ER) | payer MEDICARE, OTHER, SELFPAY ==
[2020-06-09 15:37] VITALS: BMI 34.2
[2023-03-09 20:45] VITALS: BP 157/102; PULSE 72; RESP 15; TEMP 36.1; O2SAT 95; BMI 37.4
--- NOTE | 2023-03-09 21:17 | EDS_ITS ---
HPI History of Present Illness Chief Complaint: Chest Pain Informant: patient Onset/Context/Timing Onset: Weeks (1) Timing: Intermittent and Lasts (Few seconds) Quality: Pressure, sharp Location: Anterior chest and bilateral shoulders Worsened by: Standing from seated position Relieved by: Nothing Narrative Narrative: Patient presents with pain in both shoulders and chest that has been intermittent over the last week. Patient describes it as a pressure sensation in his chest with occasional sharp pains. Patient states it is mainly over the left side of his chest. Patient states he has pain in both shoulders that radiates to both elbows. Patient states his pain is worse when he stands from a seated position. Patient states nothing seems to help with it. Patient denies any fevers or chills. Patient admits to a mild cough. Patient denies any shortness of breath. Patient denies any palpitations. Patient denies any lightheadedness or dizziness. [facility] Medical History Abnormal findings on diagnostic imaging of heart and coronary circulation Atherosclerotic heart disease of [place] coronary artery without angina pectoris (12/23/17) Atrial flutter Balance problem Bilateral knee pain BPH (benign prostatic hyperplasia) Bradycardia Bronchitis CAD (coronary artery disease) Cardiomyopathy Chest pain Diabetes mellitus, type II Diarrhea Essential hypertension Fatigue GERD (gastroesophageal reflux disease) Headache headaches Health care maintenance History of acute inferior wall [place] (12/23/17) History of back problems History of cataract History of high cholesterol History of hypertension History of subdural hematoma Hx of chronic arthritis Hx of diabetes mellitus Hx of essential hypertension Hx of hearing loss Hx of irritable bowel syndrome Hx of kidney disease Hx of thyroid disease Hypothyroidism Insulin dependent diabetes mellitus Postoperative atrial fibrillation Pure hypercholesterolemia SOB (shortness of breath) Stroke Subdural hematoma (05/05/18) Thyroid cancer Type 2 diabetes mellitus Wears glasses Home Medications lansoprazole 15 mg delayed release,disintegrating tablet 15 mg PO DAILY reflux 12/23/17 [History Last Taken 09/13/20] cholecalciferol (vitamin D3) 50 mcg (2,000 unit) capsule (Vitamin D3) 2,000 unit PO DAILY vitamin 12/11/18 [History Last Taken 06/13/20 09:00] Lactobacillus acidophilus (Acidophilus capsule) 100 mg PO DAILY 10/20/21 [History Last Taken Unknown] psyllium husk 0.4 gram capsule (Daily Fiber) 0.4 g PO DAILY 10/20/21 [History Last Taken Unknown] blood-glucose meter (OneTouch Ultra2 Meter kit) #1 ea 10/24/21 [Rx Last Taken Unknown] levothyroxine 100 mcg tablet 100 mcg PO DAILY #90 tabs 07/26/22 [Rx Last Taken Unknown] Handicap Placard #1 ea 09/05/22 [Rx Last Taken Unknown] empagliflozin 25 mg tablet 25 mg PO DAILY diabetes 09/13/22 [History Last Taken Unknown] sacubitril 24 mg-valsartan 26 mg tablet (Entresto) 1 tab PO BID #60 tabs 12/17 [Rx Last Taken Unknown] atorvastatin 80 mg tablet See Rx Instructions .Route .COMPLEX #90 tabs 10/23/22 [Rx Last Taken Unknown] tizanidine 4 mg tablet 4 mg .Route .COMPLEX PRN muscle spasticity/cramps #60 tabs 11/07/22 [Rx Last Taken Unknown] lancets 33 gauge #100 ea 12/25/22 [Rx Last Taken Unknown] pen needle, diabetic 32 gauge x 1/4 (Unifine Pentips) #200 ea 12/25/22 [Rx Last Taken Unknown] amlodipine 5 mg tablet 5 mg PO DAILY blood pressure #90 tabs 01/14/23 [Rx Last Taken Unknown] blood sugar diagnostic (OneTouch Ultra Test strips) #100 ea 01/14/23 [Rx Last Taken Unknown] carvedilol 12.5 mg tablet 12.5 mg PO BID #180 tabs 02/11/23 [Rx Last Taken Unknown] insulin aspart U-100 100 unit/mL (3 mL) subcutaneous pen (Novolog FlexPen U-100 Insulin aspart) 10 unit (0.1 mL) subcut TID 3 months #27 mL 02/27/23 [Rx Last Taken Unknown] insulin detemir U-100 100 unit/mL (3 mL) subcutaneous pen (Levemir FlexPen) 40 unit (0.4 mL) subcut QHS 3 months #36 mL 02/27/23 [Rx Last Taken Unknown] Allergy/AdvReac Type Severity Reaction Status Date / Time lisinopril AdvReac Intermediate COUGH Verified 03/09/23 20:50 Family History Father Negative for ASCVD Mother Negative for ASCVD Surgical History History of appendectomy History of louann hole surgery (05/05/18) History of coronary artery bypass graft (~11/23/18) History of eye surgery History of left heart catheterization (09/13/20) History of thyroidectomy Hx of craniotomy Hx of tonsillectomy Stented coronary artery (01/22/18) Social History household members: spouse housing: house current occupational status: retired sexually active: No Smoking Status: Former smoker Tobacco: How many years used: 20 how long ago did patient quit smokin years ago alcohol intake: never substance use type: does not use caffeine: Yes Type: coffee Number of servings: 3 what type of physical activity do you participate in: none pita/tenriism: Worship seatbelt use: sometimes do you feel safe at home: Yes ROS ROS ED Constitutional Constitutional ED: Denies chills or fever(s) Eyes Eyes: Denies blurry vision or change in vision ENT ENT ED: Denies rhinorrhea or sore throat Cardiovascular Cardiovascular: Reports chest pain; Denies palpitations Respiratory/Chest Respiratory/Chest: Reports cough; Denies dyspnea Gastrointestinal Gastrointestinal: Denies nausea or vomiting Genitourinary Genitourinary ED: Denies dysuria or hematuria Musculoskeletal Musculoskeletal: Reports back pain; Denies neck pain Integumentary Denies abscess or rash Neurologic Neurologic: Denies headache(s) or weakness Allergic/Immunologic Allergic/Immunologic ED: Denies mouth swelling or urticaria EXAM Physical Exam Const Vital Signs: 03/09/23 20:45 03/09/23 21:23 Temperature 97.0 F L Temperature Source Temporal Pulse Rate 72 Respiratory Rate 15 Respiratory Effort Normal Non-Labored Blood Pressure 157/102 H Blood Pressure Mean 120 Pulse Ox 95 Oxygen Delivery Method Room Air Positive well nourished, well developed and obese General Appearance ED: well developed and NAD Nutritional Appearance: obese HEENT Reports moist mucous membranes Neck supple and no JVD Resp normal respiratory effort and clear to auscultation bilaterally Cardio regular rate and regular rhythm GI non-tender and non-distended Palpation: soft Extremity normal to inspection General Extremety ED: Negative for edema or tenderness General Extremity: Negative for edema Neuro oriented x3, CN's II-XII intact bilaterally and no sensory deficits noted Sensorium / Orientation: alert Motor Exam: strength 5/5 throughout Psych mental status grossly normal MDM MDM MDM Narrative Medical decision making narrative: Differential diagnosis includes cardiac dysrhythmia, cardiac ischemia, pneumonia, pneumothorax, electrolyte abnormality, and anxiety. Patient has a Wells score of 0. I do not feel this is from a pulmonary embolism. EKG will be obtained to assess for cardiac dysrhythmia and cardiac ischemia. Chest x-ray will be obtained to assess for pneumonia and pneumothorax. CBC will be obtained to assess for leukocytosis and anemia. Basic metabolic profile will be obtained to assess for electrolyte abnormality and renal function. High-sensitivity troponin will be obtained to assess for cardiac ischemia. Lab Data Attestation: I reviewed the patient's lab results. Lab results narrative: CBC was reviewed and was within normal limits. Basic metabolic profile was reviewed and was essentially within normal limits. High-sensitivity troponin was reviewed and was normal at 14. Labs: Laboratory Results - last 24 hr 03/09/23 21:19 WBC 5.4 RBC 5.14 Hgb 16.0 Hct 47.9 MCV 93.2 MCH 31.1 MCHC 33.4 RDW Std Deviation 45.2 H RDW Coeff of Kera 13.2 Plt Count 129 L MPV 10.5 Immature Gran % (Auto) 0.600 Neut % (Auto) 65.6 Lymph % (Auto) 24.9 Scott % (Auto) 7.6 Eos % (Auto) 0.7 Baso % (Auto) 0.6 Absolute Neuts (auto) 3.5 Absolute Lymphs (auto) 1.34 Nucleated RBC % 0 Sodium 140 Potassium 4.5 Chloride 110 H Carbon Dioxide 23.0 Anion Gap 7 BUN 15 Creatinine 1.34 H Estim Creat Clear Calc 62.16 Est GFR (MDRD) Af Amer 68 Est GFR (MDRD) Non-Af 56 L BUN/Creatinine Ratio 11.2 Glucose 168 H Calcium 8.6 Troponin I High Sens 14 Radiography Diagnostic Testing: Clinical Impression(s) from Imaging Studies Chest X-Ray 03/09/23 21:44 IMPRESSION: No active disease. Electronically Signed: Miguel Yusuf MD at 22:14 EST , Portable 1 view chest x-ray was obtained. On my independent interpretation, lung [place] are clear. There is normal cardiac silhouette. Bony thorax is normal. There is no acute process noted. Radiologist also interpreted the x- ray and agrees. EKG Initial EKG: Attestation: I personally reviewed and interpreted this EKG as follows: Interpretation: Sinus Rhythm (72) and Non-Specific ST Changes Comments: EKG was obtained. On my independent interpretation, it shows normal sinus rhythm with occasional PVCs with a rate of 72. TN interval was normal at 190 ms. QRS interval was normal at 100 ms. QTc interval was normal at 422 ms. [place] was normal at 3. There are nonspecific ST-T wave changes noted. Prior EKG tracings: available for review Prior: Unchanged (09/06/2021) Treatment and Re-Evaluation :: Patient is feeling better on reevaluation. Patient was advised of his findings. Patient was instructed to take Tylenol as needed for his pain. Patient was instructed to follow-up with his primary care physician in 5 to 7 days for further evaluation. Patient understood and was agreeable with the plan. All questions were answered. Discharge Plan Triage Chief Complaint: Chest Pain ED Provider: Sergio Hernández Dx/Rx/DC Orders Clinical Impression: Bilateral shoulder pain, Chest pain Instructions: ED Chest Pain, Uncertain Cause Prescriptions: No Action cholecalciferol (vitamin D3) [Vitamin D3] 2,000 unit capsule 2,000 unit PO DAILY psyllium husk [Daily Fiber] 0.4 gram capsule 0.4 g PO DAILY Acidophilus Capsule 100 mg PO DAILY empagliflozin 25 mg tablet 25 mg PO DAILY tizanidine 4 mg tablet 4 mg .ROUTE .COMPLEX PRN (Reason: muscle spasticity/cramps) Qty: 60 5RF Rx Instructions: Take 1 to 2 tablets orally nightly as needed. levothyroxine 100 mcg tablet 100 mcg PO DAILY Qty: 90 1RF Levemir FlexPen 100 unit/mL (3 mL) insulin pen 40 unit subcut QHS 90 Days Qty: 36 1RF insulin aspart U-100 [Novolog FlexPen U-100 Insulin] 100 unit/mL (3 mL) insulin pen 10 unit subcut TID 90 Days Qty: 27 1RF lansoprazole 15 MG tablet,disintegrat, delay rel 15 mg PO DAILY (DME) blood-glucose meter [OneTouch Ultra2 Meter] Kit See Rx Instructions .Route Qty: 1 2RF Rx Instructions: Check 4x daily (DME) Handicap Placard See Rx Instructions .ROUTE .MEDSUPPLY Qty: 1 0RF Rx Instructions: As directed, length of time 3 years Entresto 24-26 mg tablet 1 tab PO BID Qty: 60 11RF atorvastatin 80 mg tablet See Rx Instructions .ROUTE .COMPLEX Qty: 90 2RF Dose Instruction: TAKE 1 TABLET BY MOUTH EVERY DAY Rx Instructions: TAKE 1 TABLET BY MOUTH EVERY DAY (DME) pen needle, diabetic [Unifine Pentips] 32 gauge x 1/4 needle See Rx Instructions .Route Qty: 200 3RF Rx Instructions: use 4x daily to administer insulin as directed (DME) lancets 33 gauge misc See Rx Instructions .Route Qty: 100 3RF Rx Instructions: use twice daily to monitor blood glucose for type 2 DM amlodipine 5 mg tablet 5 mg PO DAILY Qty: 90 3RF (DME) OneTouch Ultra Test Strip See Rx Instructions .Route Qty: 100 4RF Rx Instructions: use 3-4x daily as directed to monitor blood glucose for type 2 DM carvedilol 12.5 mg tablet 12.5 mg PO BID Qty: 180 4RF Rx Instructions: must administer with a meal/food Primary Care Provider: Shan Nazario Referrals: Shan Nazario MD [Primary Care Provider] - 5-7 Days Disposition Disposition: Home, Self Care
--- NOTE | 2023-03-09 21:33 | EKG12_ITS ---
Test Reason : CHST PRESSURE Blood Pressure : / mmHG Vent. Rate : 072 BPM Atrial Rate : 072 BPM P-R Int : 190 ms QRS Dur : 100 ms QT Int : 386 ms P-R-T Axes : 048 003 -48 degrees QTc Int : 422 ms Sinus rhythm with occasional Premature ventricular complexes with ventricular escape complexes Inferior infarct (cited on or before 13-JUN-2020) Abnormal ECG Confirmed by CHARLIE AGUERO MD ([id number]), acquisitions editor NISHANT WOLF ([id number]) on 03/11/2023 6:11:57 AM Referred By: TARA Confirmed By:CHARLIE AGUERO MD
--- NOTE | 2023-03-09 21:44 | RAD_ITS ---
STUDY: X-RAY CHEST REASON FOR EXAM: Male, 72 years old. Chest pain TECHNIQUE: Single AP portable view of the chest. COMPARISON: 06/13/2020 FINDINGS: Status post median sternotomy. The lungs are clear and expanded. Elevated right hemidiaphragm which is unchanged. Normal size heart. Normal mediastinum and malcolm. Normal visualized pulmonary arteries. Normal visualized aortic arch and descending thoracic aorta. Normal visualized thoracic spine. Normal visualized ribs, clavicles, and shoulders. There is no demonstrated abnormality of the visualized soft tissue structures of the upper abdomen. RAD/Chest 1 View (Portable) IMPRESSION: No active disease. Electronically Signed: Miguel Yusuf MD at 22:14 EST ,
[2023-03-09 21:46] LABS: Absolute Lymphocyte Count 1.34 X10^3/uL (0.83-4.51); Absolute Neutrophil Count 3.5 X10^3/uL (2.0-7.7); Basophil# 0.03 X10^3/uL; Basophil% 0.6 % (0-1); Eosinophil# 0.04 X10^3/uL; Eosinophils% 0.7 % (0-5); Hematocrit 47.9 % (40-54); Lymphocyte # 1.34 X10^3/ul (0.83-4.51); Lymphocyte % 24.9 % (19-41); Mean Corp Hgb Conc 33.4 g/dL (32-36); Mean Corpuscular Hgb 31.1 pg (27.0-32.0); Mean Corpuscular Volume 93.2 fL (80-94); Mean Platelet Vol. 10.5 fl (6.2-12.0); Monocyte# 0.41 X10^3/uL; Monocyte% 7.6 % (0-10); NRBC Flagged by Analyzer 0 % (0-5); Neutrophil # 3.53 X10^3/uL (2.7-7.7); Neutrophil % 65.6 % (47-70); Platelet Count 129 K/mm3 (150-450); RBC Distribution Width CV 13.2 % (11.6-14.6); RBC Distribution Width SD 45.2 fl (35.1-43.9); Red Blood Count 5.14 M/mm3 (4.6-6.2); White Blood Count 5.4 K/mm3 (4.4-11.0)
[2023-03-09 22:16] LABS: Anion Gap 7 (5-15); BUN 15 mg/dL (7-18); BUN/Creat Ratio 11.2 RATIO (10-20); Calcium,Total 8.6 mg/dL (8.5-10.1); Chloride 110 mmol/L (98-107); Creatinine, Serum 1.34 mg/dL (0.70-1.30); EST Glomerular Filtration Rate 56 mL/min (>60); Est Glom Filt Rate - Afr Amer 68 mL/min (>60); Estimated Creatinine Clearance 62.16 ml/min; Glucose 168 mg/dL (74-106); Potassium 4.5 mmol/L (3.5-5.1); Sodium Level 140 mmol/L (136-145); Troponin-I HS 14 pg/mL (3.0-78.0)
[2023-03-09 22:51] VITALS: BP 144/88; PULSE 74; RESP 18; O2SAT 96
[2023-03-09 22:52] VITALS: BP 144/88; PULSE 77; O2SAT 96
== END 2023-03-09 22:59 | disposition home or self-care (01) ==
PROVIDERS: Emergency Provider Emergency Medicine; PCP Internal Medicine; Visit Provider Emergency Medicine
DX: M25.511 Pain in right shoulder (principal); Z79.4 Long term (current) use of insulin; E11.9 Type 2 diabetes mellitus without complications; M25.512 Pain in left shoulder; R07.9 Chest pain, unspecified; I25.10 Atherosclerotic heart disease of native coronary artery without angina pectoris; I10 Essential (primary) hypertension; E78.00 Pure hypercholesterolemia, unspecified; N40.0 Benign prostatic hyperplasia without lower urinary tract symptoms; E66.9 Obesity, unspecified; Z79.899 Other long term (current) drug therapy; Z87.891 Personal history of nicotine dependence; Z95.5 Presence of coronary angioplasty implant and graft; Z95.1 Presence of aortocoronary bypass graft
CPT/HCPCS: 71045; 80048; 84484; 85025; 93005; 99284; A4216

== ENCOUNTER → 2023-05-29 | Outpatient (CLI) | payer MEDICARE, OTHER, SELFPAY ==
[2020-06-09 15:37] VITALS: BMI 34.2
[2023-05-29 16:56] LABS: Microalbumin,Random Urine 6.1 mg/L (NO RANGE EST.); Microalbumin:Creatinine Ratio 5.2 mg/g CRE (<30 mg/g CRE)
[2023-05-29 17:08] LABS: Anion Gap 5 (5-15); BUN 18 mg/dL (7-18); BUN/Creat Ratio 14.6 RATIO (10-20); Calcium,Total 8.8 mg/dL (8.5-10.1); Chloride 106 mmol/L (98-107); Creatinine, Serum 1.23 mg/dL (0.70-1.30); EST Glomerular Filtration Rate 62 mL/min (>60); Est Glom Filt Rate - Afr Amer 75 mL/min (>60); Glucose 198 mg/dL (74-106); PSA,Total - Annual Screen 2.46 ng/mL (0.00-4.00); Potassium 4.4 mmol/L (3.5-5.1); Sodium Level 138 mmol/L (136-145); Thyroid Stim Hormone (TSH) 0.66 uIU/mL (0.358-3.74)
== END | disposition home or self-care (01) ==
LOC: BIMLAB 14:52
PROVIDERS: PCP Internal Medicine; Visit Provider Internal Medicine
DX: E11.9 Type 2 diabetes mellitus without complications (principal); E03.9 Hypothyroidism, unspecified; N40.0 Benign prostatic hyperplasia without lower urinary tract symptoms
CPT/HCPCS: 36415; 80048; 82043; 82570; 84153; 84443; G0103

== ENCOUNTER → 2023-08-28 | Outpatient (CLI) | payer MEDICARE, OTHER, SELFPAY ==
[2020-06-09 15:37] VITALS: BMI 34.2
[2023-08-28 15:39] LABS: Absolute Lymphocyte Count 1.33 X10^3/uL (0.83-4.51); Absolute Neutrophil Count 3.7 X10^3/uL (2.0-7.7); Basophil# 0.04 X10^3/uL; Basophil% 0.7 % (0-1); Eosinophils% 1.8 % (0-5); Hematocrit 48.2 % (40-54); Hemoglobin 15.3 g/dL (13.0-16.5); Lymphocyte # 1.33 X10^3/ul (0.83-4.51); Lymphocyte % 23.9 % (19-41); Mean Corp Hgb Conc 31.7 g/dL (32-36); Mean Corpuscular Hgb 30.4 pg (27.0-32.0); Mean Corpuscular Volume 95.6 fL (80-94); Mean Platelet Vol. 10.1 fl (6.2-12.0); Monocyte# 0.39 X10^3/uL; NRBC Flagged by Analyzer 0 % (0-5); Neutrophil # 3.67 X10^3/uL (2.7-7.7); Neutrophil % 66.1 % (47-70); Platelet Count 149 K/mm3 (150-450); RBC Distribution Width CV 13.7 % (11.6-14.6); RBC Distribution Width SD 48.7 fl (35.1-43.9); Red Blood Count 5.04 M/mm3 (4.6-6.2); White Blood Count 5.6 K/mm3 (4.4-11.0)
[2023-08-28 17:10] LABS: ALB/GLOB Ratio 0.9 RATIO (0.9-2.4); AST(SGOT) 16 U/L (15-37); Alanine Aminotransfer ALT/SGPT 23 U/L (16-61); Albumin, Serum 3.4 g/dL (3.2-5.0); Alkaline Phosphatase 85 U/L (45-117); Anion Gap 6 (5-15); BUN 18 mg/dL (7-18); BUN/Creat Ratio 13.8 RATIO (10-20); Calcium,Total 9.3 mg/dL (8.5-10.1); Chloride 104 mmol/L (98-107); EST Glomerular Filtration Rate 58 mL/min (>60); Est Glom Filt Rate - Afr Amer 70 mL/min (>60); Globulin 3.6 g/dL (2.2-4.2); Glucose 221 mg/dL (74-106); Potassium 4.5 mmol/L (3.5-5.1); Sodium Level 137 mmol/L (136-145)
== END | disposition home or self-care (01) ==
LOC: BIMLAB 14:36
PROVIDERS: PCP Internal Medicine; Referring Provider Internal Medicine; Visit Provider Internal Medicine
DX: E11.69 Type 2 diabetes mellitus with other specified complication (principal); Z79.4 Long term (current) use of insulin
CPT/HCPCS: 36415; 80053; 85025

== ENCOUNTER → 2023-11-07 | Outpatient (CLI) | payer MEDICARE, OTHER, SELFPAY ==
[2020-06-09 15:37] VITALS: BMI 34.2
== END | disposition home or self-care (01) ==
LOC: PSN 08:35
PROVIDERS: PCP Internal Medicine; Referring Provider Nurse Practitioner Family; Visit Provider Nurse Practitioner Family
DX: R00.1 Bradycardia, unspecified (principal); I25.10 Atherosclerotic heart disease of native coronary artery without angina pectoris; I25.2 Old myocardial infarction; Z95.5 Presence of coronary angioplasty implant and graft
CPT/HCPCS: 93225; 93226

== ENCOUNTER → 2023-12-04 | Outpatient (CLI) | payer MEDICARE, OTHER, SELFPAY ==
[2020-06-09 15:37] VITALS: BMI 34.2
[2023-12-04 17:14] LABS: Anion Gap 5 (5-15); BUN 13 mg/dL (7-18); BUN/Creat Ratio 11.6 RATIO (10-20); Calcium,Total 9.3 mg/dL (8.5-10.1); Chloride 106 mmol/L (98-107); Creatinine, Serum 1.12 mg/dL (0.70-1.30); EST Glomerular Filtration Rate 69 mL/min (>60); Est Glom Filt Rate - Afr Amer 83 mL/min (>60); Glucose 116 mg/dL (74-106); Potassium 4.3 mmol/L (3.5-5.1); Sodium Level 139 mmol/L (136-145); Thyroid Stim Hormone (TSH) 0.832 uIU/mL (0.358-3.740)
== END | disposition home or self-care (01) ==
LOC: BIMLAB 14:51
PROVIDERS: PCP Internal Medicine; Referring Provider Internal Medicine; Visit Provider Internal Medicine
DX: E03.9 Hypothyroidism, unspecified (principal); I10 Essential (primary) hypertension
CPT/HCPCS: 36415; 80048; 84443

== ENCOUNTER → 2024-06-12 | Outpatient (CLI) | payer MEDICARE, OTHER, SELFPAY ==
[2020-06-09 15:37] VITALS: BMI 34.2
--- NOTE | 2024-06-12 12:14 | ECHOCS_ITS ---
Reason For Study Reason For Study: CAD/ASHD Procedure This was a 2D Doppler, Color Flow transthoracic echocardiogram. The study was technically difficult. Contrast injection was performed. Exam performed in department. Left Ventricle Normal size and thickness. Severe posterior hypokinesis. Inferior hypokinesis. Estimated LVEF 35%. Stage I diastolic dysfunction. Right Ventricle Normal right ventricle. Atria There is mild biatrial dilatation. Mitral Valve Trivial mitral valve insufficiency. Tricuspid Valve Trivial tricuspid valve insufficiency. Aortic Valve Trisinus/trileaflet aortic valve. Pulmonic Valve The pulmonic valve is not well visualized. Great Vessels Mildly dilated aortic root. Pericardium/Pleural No pericardial effusion. Medication 22 gauge I.V. with prn adaptor inserted into right arm. Diluted definity 3ml given slow IV push to enhance endocardial definition. MMode/2D Measurements & Calculations LVIDd: 5.5 cm IVSd: 1.1 cm Ao root diam: 3.9 cm LVIDs: 4.5 cm LVPWd: 1.3 cm RVDd: 4.2 cm FS: 17.2 % LAV(MOD-bp): 35.0 ml LVAd ap4: 34.9 cm2 SV(MOD-sp4): 65.8 ml LAV(MOD-bp) Indexed: 16.2 ml/m2 LVLd ap4: 8.4 cm SI(MOD-sp4): 30.4 ml/m2 LAV(MOD-sp2): 32.2 ml EDV(MOD-sp4): 121.3 ml LAV(MOD-sp4): 36.7 ml EDV(sp4-el): 123.7 ml LVAs ap4: 22.1 cm2 LVLs ap4: 7.3 cm ESV(MOD-sp4): 55.5 ml ESV(sp4-el): 56.8 ml EF(MOD-sp4): 54.2 % EF(sp4-el): 54.1 % SV(sp4-el): 66.9 ml LA A4 area: 14.8 cm2 LA dimension(2D): 4.6 cm RA A4 area: 12.7 cm2 Time Measurements MV dec time: 0.21 sec Doppler Measurements & Calculations MV E max cornelio: 64.4 cm/sec Lat Peak E' Cornelio: 12.2 cm/sec Med Peak E' Cornelio: 6.3 cm/sec MV A max cornelio: 62.9 cm/sec E/E' lat: 5.3 E/E' med: 10.2 MV E/A: 1.0 MV V2 max: 82.5 cm/sec MV P1/2t max cornelio: 68.3 cm/sec Ao V2 max: 109.9 cm/sec MV max P.7 mmHg MV P1/2t: 79.7 msec Ao max P.8 mmHg MV V2 mean: 42.5 cm/sec MV dec slope: 250.9 cm/sec2 MV mean P.85 mmHg MVA(P1/2t): 2.8 cm2 MV V2 VTI: 30.9 cm LV V1 max: 82.4 cm/sec PA V2 max: 109.3 cm/sec TR max cornelio: 223.2 cm/sec LV V1 max P.7 mmHg PA V2 mean: 79.1 cm/sec TR max P.9 mmHg ECHO/Echo Complete W/ Contrast Interpretation Summary Severe posterior hypokinesis. Inferior hypokinesis. Estimated LVEF 35%. Stage I diastolic dysfunction. There is mild biatrial dilatation. Mildly dilated aortic root. The study was technically difficult. Ordering Physician: Esteban Yeboah Referring Physician: Esteban Yeboah Performed By: Sahil Fong [facility]
== END | disposition home or self-care (01) ==
LOC: CVS 12:13
PROVIDERS: PCP Internal Medicine; Referring Provider Internal Medicine Cardiovascular Disease; Visit Provider Internal Medicine Cardiovascular Disease
DX: R06.09 Other forms of dyspnea (principal); I25.10 Atherosclerotic heart disease of native coronary artery without angina pectoris
CPT/HCPCS: 93306; Q9957; A4216; C8929

== ENCOUNTER → 2024-09-11 | Outpatient (CLI) | payer MEDICARE, OTHER, SELFPAY ==
[2020-06-09 15:37] VITALS: BMI 34.2
[2024-09-11 15:39] LABS: Hematocrit 48.1 % (40-54); Hemoglobin 16.1 g/dL (13.0-16.5); Immature Granulocytes Count 0.070 X10^3/uL (0.0-0.0); Mean Corp Hgb Conc 33.5 g/dL (32-36); Mean Corpuscular Volume 93.8 fL (80-94); Mean Platelet Vol. 10.1 fl (6.2-12.0); NRBC Flagged by Analyzer 0 % (0-5); Platelet Count 175 K/mm3 (150-450); RBC Distribution Width CV 13.5 % (11.6-14.6); RBC Distribution Width SD 47.1 fl (35.1-43.9); Red Blood Count 5.13 M/mm3 (4.6-6.2); White Blood Count 6.3 K/mm3 (4.4-11.0)
[2024-09-11 16:04] LABS: Creatinine, Urine (random) 137.00 mg/dL (39.00-259.00); Microalbumin,Random Urine < 12.0 mg/L (<20 mg/L)
[2024-09-11 16:43] LABS: AST(SGOT) 25 U/L (<=37); Alanine Aminotransfer ALT/SGPT 18 U/L (<=46); Albumin, Serum 4.2 g/dL (3.4-4.8); Alkaline Phosphatase 80 U/L (40-129); Anion Gap 12 (5-15); BUN 13 mg/dL (4-19); BUN/Creat Ratio 10.8 RATIO (10-20); Calcium,Total 9.4 mg/dL (7.6-11.0); Carbon Dioxide 23.5 mmol/L (21.0-32.0); Chloride 105 mmol/L (98-108); Cholesterol 183 mg/dL (<=200); Globulin 2.5 g/dL (2.2-4.2); Glucose 121 mg/dL (70-99); Low Density Lipoprotein Calc. 91 mg/dL; PSA,Total - Annual Screen 2.08 ng/mL (0.02-4.00); Potassium 4.4 mmol/L (3.3-5.1); Triglycerides 242 mg/dL; Very Low Density Lipoprotein 48 mg/dL (5-40); cholesterol:hdl ratio screen 4.19
== END | disposition home or self-care (01) ==
LOC: LAB 14:04
PROVIDERS: PCP Internal Medicine; Referring Provider Internal Medicine; Visit Provider Internal Medicine
DX: I10 Essential (primary) hypertension (principal); E11.69 Type 2 diabetes mellitus with other specified complication; Z79.4 Long term (current) use of insulin; N40.0 Benign prostatic hyperplasia without lower urinary tract symptoms; E03.9 Hypothyroidism, unspecified
CPT/HCPCS: 36415; 80053; 80061; 82043; 82570; 84153; 84443; 85025; G0103

== ENCOUNTER → 2024-11-17 | Outpatient (CLI) | payer MEDICARE, OTHER, SELFPAY ==
[2020-06-09 15:37] VITALS: BMI 34.2
[2024-11-17 15:06] LABS: Anion Gap 12 (5-15); BUN 18 mg/dL (4-19); BUN/Creat Ratio 14.0 RATIO (10-20); Calcium,Total 9.3 mg/dL (7.6-11.0); Carbon Dioxide 21.2 mmol/L (21.0-32.0); Chloride 105 mmol/L (98-108); Glucose 169 mg/dL (70-99); Potassium 4.4 mmol/L (3.3-5.1)
== END | disposition home or self-care (01) ==
LOC: LAB 13:31
PROVIDERS: PCP Internal Medicine; Referring Provider Internal Medicine Cardiovascular Disease; Visit Provider Internal Medicine Cardiovascular Disease
DX: I10 Essential (primary) hypertension (principal)
CPT/HCPCS: 36415; 80048

== ENCOUNTER 2025-01-28 10:03 | Observation (INO) | payer MEDICARE, OTHER, SELFPAY ==
[2020-06-09 15:37] VITALS: BMI 34.2
--- NOTE | 2025-01-18 09:55 | RAD_ITS ---
PROCEDURE: CHEST PA AND LATERAL 01/18/2025 REASON FOR EXAM: FOR ICD IMPLANT TECHNIQUE: Procedure Code: RADCXR Modality: DX Procedure: CHEST PA AND LATERAL COMPARISON: 03/09/23 FINDINGS: No focal consolidation. No pleural effusion or pneumothorax. Cardiac silhouette is within normal limits. No acute fractures. Median sternotomy wires. RAD/Chest PA and Lateral IMPRESSION: No focal consolidations. Reading Location: [id number]
[2025-01-18 10:11] LABS: Mucous, Urine 0 SEEN /hpf (<or=2+); Red Blood Cells-Urine 0 SEEN /hpf (0-5); Squamous Epithelial Cells - UA 0 SEEN /hpf (0-5)
[2025-01-18 10:37] LABS: Color, Urine Yellow (Yellow); Glucose, Dipstick 1000 mg/dl (Normal); Hematocrit 47.1 % (40-54); Hemoglobin 15.2 g/dL (13.0-16.5); Ketone-Dipstick Negative (Negative); Leukocyte Esterase-Dipstick Negative /ul (Negative); Mean Corp Hgb Conc 32.3 g/dL (32-36); Mean Corpuscular Volume 95.9 fL (80-94); Mean Platelet Vol. 10.2 fl (6.2-12.0); Nitrite-Dipstick Negative (Negative); Occult Blood-Urine Negative /ul (Negative); Platelet Count 137 K/mm3 (150-450); Protein-Dipstick Negative (Negative); RBC Distribution Width CV 13.6 % (11.6-14.6); RBC Distribution Width SD 48.4 fl (35.1-43.9); Red Blood Count 4.91 M/mm3 (4.6-6.2); Specific Gravity, Urine 1.010 (1.002-1.030); Urine Bilirubin Dipstick Negative (Negative); White Blood Count 4.8 K/mm3 (4.4-11.0)
[2025-01-18 11:35] LABS: Anion Gap 12 (5-15); BUN 15 mg/dL (4-19); BUN/Creat Ratio 10.6 RATIO (10-20); Calcium,Total 8.8 mg/dL (7.6-11.0); Carbon Dioxide 21.4 mmol/L (21.0-32.0); Chloride 103 mmol/L (98-108); Glucose 267 mg/dL (70-99); Potassium 4.4 mmol/L (3.3-5.1)
[2025-01-27 10:23] VITALS: BMI 36.1
[2025-01-28] VITALS (9 sets, daily range): BP systolic 98–151; BP diastolic 66–94; PULSE 53–73; RESP 14–17; TEMP 36.4–36.7; O2SAT 94–99; BMI 36.3
--- OUTSIDE RECORDS SUMMARY | 2025-01-28 07:22 | XMS RPT_ITS | CCD ---
Author Organization [facility] Care Team Providers Care Worship Leader Name Role Phone MESFIN OMRENO Admitting Unavailable MESFIN MORENO Attending Unavailable IMCA Referring Unavailable GunDoug chavarria Primary Care Provider Unavailable Primary Care Provider Unavailanand e GunDoug chavarria Primary Care Provider Unavailable Primary Care Provider Unavailabl e GunDoug chavarria MD Primary Care Provider Dr. Doug Love Primary Care Provider Dr. Doug Love Referring Provider [phone] Dr. Sony Escalera Attending Provider Dr. Shan Nazario Attending Provider [phone] Shan Nazario Primary Care Provider Dr. Lg Langford Attending Provider BRICENO, ALLEN Attending Unavailable GUNNEHEMIAS, DOUG Britton Primary Care Unavailable BRICENO, ALLEN Admitting Unavailable GUNNING, DOUG Britton Primary Care Unavailable BRICENO, ALLEN Admitting Unavailable BRICENO, ALLEN Attending Unavailable BRICENO, ALLEN Admitting Unavailable GUNNING, DOUG Britton Primary Care Unavailable BRICENO, ALLEN Attending Unavailable BRICENO, ALLEN Admitting Unavailable GUNNING, DOUG Britton Primary Care Unavailable BRICENO, ALLEN Attending Unavailable BRICENO, ALLEN Admitting Unavailable GUNNING, DOUG Britton Primary Care Unavailable BRICENO, ALLEN Attending Unavailable Dr. Doug Love Referring Provider DELFINA Murillo Attending Provider Dr. Shan Nazario Primary Care Provider [phone] Dr. Shan Nazario Attending Provider [phone] Dr. Shan Nazario Referring Provider [phone] Doug Love MD Primary Care Provider Mansi, Dr. Torrez Primary Care Provider [phone] Dr. Lg Langford Attending Provider Doug Love MD Primary Care Provider Mansi, Dr. Torrez Primary Care Provider [phone] Mansi, Dr. Torrez Attending Provider [phone] Dr. Shan Nazario Referring Provider [phone] Dr. Fabiana Pérez Attending Provider [phone] Dr. Lg Langford Referring Provider DELFINA Murillo Attending Provider DELFINA Germain Attending Provider [phone] Dr. Lg Langford Attending Provider Dr. Shan Nazario Primary Care Provider [phone] Dr. Shan Nazario Referring Provider [phone] Dr. Lg Langford Attending Provider DELFINA Germain Attending Provider [phone] Dr. Shan Nazario Attending Provider [phone] Dr. Shan Nazario Primary Care Provider [phone] Dr. Shan Nazario Referring Provider [phone] Dr. Shan Nazario Primary Care Provider [phone] Dr. Shan Nazario Attending Provider [phone] Dr. Shan Nazario Referring Provider [phone] Dr. Lg Langford Attending Provider Dr. Channing Nazariobe Primary Care Provider [phone] Dr. Shan Nazario Attending Provider [phone] Dr. Shan Nazario Referring Provider [phone] Dr. Lg Langford Attending Provider Oleuma, Efewongbe B Primary Care Provider Doug Love MD Primary Care Provider CALLI WATERS Attending Unavailable MANSI EFEWONGBE Primary Care Unavailable CALLI WATERS Attending Unavailable CALLI WATERS Referring Unavailable ANG NAZARIOONGISIDORO Primary Care Unavailable Mansi BOLIVAR, Dr. Torrez Primary Care Provider Mansi BOLIVAR, Dr. Torrez Referring Provider [phone] Obinna BOLIVAR, Dr. Orellana Attending Provider [phone] Mansi BOLIVAR, Dr. Torrez Attending Provider [phone] Obinna BOLIVAR, Dr. Orellana Referring Provider [phone] Mansi BOLIVAR, Dr. Torrez Primary Care Provider Mansi BOLIVAR, Dr. Torrez Referring Provider [phone] Dr. Esteban Yeboah MD Attending Provider Mansi BOLIVAR, Dr. Torrez Primary Care Provider Mansi BOLIVAR, Dr. Torrez Attending Provider [phone] Mansi BOLIVAR, Dr. Torrez Referring Provider [phone] Dr. Esteban Yeboah MD Attending Provider Mansi BOLIVAR, Dr. Torrez Primary Care Physician Mansi BOLIVAR, Dr. Torrez Attending Physician [phone] Obinna BOLIVAR, Dr. Orellana Attending Physician [phone] Dr. Esteban Yeboah MD Referring Provider Dr. Lg Langford MD Attending Physician [phone] Oleghe, Efewongbe Referring Unavailable Obinna, Esteban Attending Unavailable Oleghe, Efewongbe Primary Care Unavailable Lg Langford Attending Unavailable Oleghe, Efewongbe Primary Care Unavailable Oleghe, Efewongbe Referring Unavailable Satti, Porter Referring Unavailable Satti, Porter Attending Unavailable Oleghe, Efewongbe Primary Care Unavailable Obinna, Esteban Referring Unavailable Obinna, Esteban Attending Unavailable Oleghe, Efewongbe Primary Care Unavailable Oleghe, Efewongbe Referring Unavailable Oleghe, Efewongbe Attending Unavailable Oleghe, Efewongbe Primary Care Unavailable Oleghe, Efewongbe Primary Care Unavailable Obinna, Seteban Referring Unavailable Obinna, Esteban Attending Unavailable Oleghe, Efewongbe Referring Unavailable Oleghe, Efewongbe Attending Unavailable Oleghe, Efewongbe Primary Care Unavailable Obinna, Esteban Attending Unavailable Oleghe, Efewongbe Primary Care Unavailable Satti, Porter Attending Unavailable Oleghe, Efewongbe Referring Unavailable Oleghe, Efewongbe Primary Care Unavailable Oleghe, Efewongbe Referring Unavailable Oleghe, Efewongbe Attending Unavailable Oleghe, Efewongbe Primary Care Unavailable Oleghe, Efewongbe Referring Unavailable Lg Langford Attending Unavailable Oleghe, Efewongbe Primary Care Unavailable Oleghe, Efewongbe Referring Unavailable Obinna, Esteban Attending Unavailable Oleghe, Efewongbe Primary Care Unavailable Oleghe, Efewongbe Referring Unavailable Oleghe, Efewongbe Attending Unavailable Oleghe, Efewongbe Primary Care Unavailable Oleghe, Efewongbe Referring Unavailable Oleghe, Efewongbe Attending Unavailable Oleghe, Efewongbe Primary Care Unavailable Allergies Allergy Classification Reported Allergen(s) Allergy Type Date of Onset Reaction(s) Facility (20 sources) Lisinopril Drug Allergy 03-08-2016 [place] (1 source) Amino Acids Drug Allergy [facility] Repository (1 source) Lisinopril Drug Allergy 01-01-2025 [facility] Repository Medications Current Medications Medication Drug Class(es) Dates Sig (Normalized) Sig (Original) acetaminophen 325 mg / HYDROcodone bitartrate 5 mg oral tablet (2 sources) Opioid Agonist Start: 06-16-2021 End: 06-23-2021 take 1 tablet by mouth every four hours as needed for pain HYDROcodone-aceta minophen (NORCO) 5-325 MG per tablet 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 20 tablet 0 06/16/2021 06/23/2021 Active Acetaminophen / oxyCODONE (1 source) Opioid Agonist Start: 11-06-2018 oxyCODONE-acetami nophen (PERCOCET) 5-325 MG per tablet 1 tablet albuterol 0.833 mg/ml / ipratropium bromide 0.167 mg/ml inhalant solution (2 sources) Anticholinergic, beta2-Adrenergic Agonist Start: 11-07-2018 ipratropium-albut yakov (DUONEB) nebulizer solution 1 ampule Start: 11-06-2018 End: 11-07-2018 1 ampule, Inhalation, EVERY 4 HOURS WHILE AWAKE, First dose on Sharlene 11/06/18 at 1600 bifidobacterium infantis 4 mg oral capsule (1 source) Start: 06-17-2021 acidophilus probiotic capsule 1 capsule bisacodyl 10 mg rectal suppository (1 source) Stimulant Laxative Start: 11-06-2018 take 10 mg rectal route once daily as needed for constipation 10 mg, Rectal, DAILY PRN, Constipation, Starting Sharlene 11/06/18 at 1240 Second line therapy for constipation, After 24 hours, if no result from first line PRN therapy, give second line therapy in combination with first line therapy. Post-op Blood Pressure Monitor kit (5 sources) Start: 02-03-2024 Blood Pressure Monitor kit Active 0 .Route 1 0 February 03, 2024 1:00am Hypertension Essential (primary) hypertension As directed Blood-Glucose Meter (4 sources) Start: 04-03-2023 Blood-Glucose Meter Active 0 .Route 1 April 03, 2023 3:20pm Use 3-4x daily to monitor blood glucose for DMII Start: 04-03-2023 Blood-Glucose Meter Active 0 .Route 1 April 03, 2023 2:20pm Use 3-4x daily to monitor blood glucose for DMII Start: 04-03-2023 End: 04-03-2023 Blood-Glucose Meter Disconti nued 0 .Route 1 April 03, 2023 1:00am April 03, 2023 3:20pm Use 3-4x daily to monitor blood glucose for DMII Start: 04-03-2023 End: 04-03-2023 Blood-Glucose Meter Disconti nued 0 .Route 1 April 03, 2023 12:00am April 03, 2023 2:20pm Use 3-4x daily to monitor blood glucose for DMII Blood-Glucose Meter misc (10 sources) Start: 04-03-2023 Blood-Glucose Meter misc Active 0 .Route 1 0 April 03, 2023 3:20pm Use 3-4x daily to monitor blood glucose for DMII Start: 04-03-2023 End: 04-03-2023 Blood-Glucose Meter misc Dis continued 0 .Route 1 0 April 03, 2023 1:00am April 03, 2023 3:20pm Use 3-4x daily to monitor blood glucose for DMII Blood-Glucose Sensor (Freest yle Ynes 2 Plus Sensor) device (8 sources) Start: 12-09-2024 Blood-Glucose Sensor (Freestyle Ynes 2 Plus Sensor) device Active 0 .Route 2 December 09, 2024 1:35pm Insulin dependent diabetes mellitus Type 2 diabetes mellitus Type 2 diabetes mellitus with other specified complication MCC (current) use of insulin As directed to check blood glucose 2 times daily for DMII 2 boxes/month INSULIN DEPENDENT ICD: E11.9 Start: 12-09-2024 End: 12-09-2024 Blood-Glucose Sensor (Freest yle Ynes 2 Plus Sensor) device Discontinued 0 .Route 2 December 09, 2024 1:31pm December 09, 2024 1:36pm Insulin dependent diabetes mellitus Type 2 diabetes mellitus Type 2 diabetes mellitus with other specified complication 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 As directed to check blood glucose 2 times daily for DMII 2 boxes/month INSULIN DEPENDENT ICD: E11.9 Start: 12-08-2024 End: 12-09-2024 Blood-Glucose Sensor (Freest yle Ynes 2 Plus Sensor) device Discontinued 0 .Route 2 December 08, 2024 11:48am December 09, 2024 1:32pm Insulin dependent diabetes mellitus Type 2 diabetes mellitus Type 2 diabetes mellitus with other specified complication MCC (current) use of insulin As directed to check blood glucose 3-4 times daily for DMII 2 boxes/month INSULIN DEPENDENT ICD: E11.9 Start: 12-07-2024 End: 12-08-2024 Blood-Glucose Sensor (Freest yle Ynes 2 Plus Sensor) device Discontinued 0 .Route 2 December 07, 2024 3:13pm December 08, 2024 11:49am Insulin dependent diabetes mellitus Type 2 diabetes mellitus Type 2 diabetes mellitus with other specified complication MCC (current) use of insulin As directed to check blood glucose 3-4 times daily for DMII 2 boxes/month INSULIN DEPENDENT ICD: E11.9 Start: 11-04-2024 End: 12-07-2024 Blood-Glucose Sensor (Freest yle Ynes 2 Plus Sensor) device Discontinued 0 .Route 1 November 04, 2024 9:43am December 07, 2024 3:25pm Insulin dependent diabetes mellitus Type 2 diabetes mellitus Type 2 diabetes mellitus with other specified complication 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 As directed to check blood glucose 3-4 times daily for DMII 2 boxes/month Start: 11-04-2024 Blood-Glucose Sensor (Freestyle Ynes 2 Plus Sensor) device Active 0 .Route 1 November 04, 2024 9:43am Insulin dependent diabetes mellitus Type 2 diabetes mellitus Type 2 diabetes mellitus with other specified complication MCC (current) use of insulin As directed to check blood glucose 3-4 times daily for DMII 2 boxes/month Start: 11-04-2024 End: 11-04-2024 Blood-Glucose Sensor (Freest yle Ynes 2 Plus Sensor) device Discontinued 0 .Route 1 November 04, 2024 12:00am November 04, 2024 9:44am Insulin dependent diabetes mellitus Type 2 diabetes mellitus Type 2 diabetes mellitus with other specified complication MCC (current) use of insulin As directed to check blood glucose 3-4 times daily for DMII 2 boxes/month cholecalciferol 0.05 mg oral capsule (20 sources) Vitamin D Start: 12-11-2018 take 1 capsule by mouth once daily Cholecalciferol (Vitamin D3) (Vitamin D3) 2,000 unit capsule Active 2000 U PO DAILY December 11, 2018 12:00am vitamin Complies with drug therapy Cholecalciferol (D3-50 PO) Take by mouth daily 0 Suspended Cholecalciferol (D3-50 PO) Take by mouth daily 0 Active docusate sodium 50 mg / sennosides, [facility] 8.6 mg oral tablet (1 source) Start: 11-06-2018 take 1 tablet by mouth twice daily 1 tablet, Oral, 2 TIMES DAILY, First dose on Sharlene 11/06/18 at 1300, Post-op Flash Glucose Scanning [place] (Freestyle Ynes 2 [place]) misc (20 sources) Start: 09-09-2024 Flash Glucose Scanning [place] (Freestyle Ynes 2 [place]) misc Active 0 .Route 1 September 09, 2024 4:14pm Type 2 diabetes mellitus Type 2 diabetes mellitus with other specified complication MCC (current) use of insulin As directed; 3-4x daily to monitor blood glucose for DMII 2 boxes/month Start: 12-04-2023 End: 09-09-2024 Flash Glucose Scanning Reade r (Freestyle Ynes 2 [place]) misc Discontinued 0 .Route 1 December 04, 2023 2:39pm September 09, 2024 4:15pm Type 2 diabetes mellitus Type 2 diabetes mellitus with other specified complication 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 As directed; 3-4x daily to monitor blood glucose for DMII Start: 12-04-2023 Flash Glucose Scanning [place] (Freestyle Ynes 2 [place]) misc Active 0 .Route 1 December 04, 2023 2:39pm Type 2 diabetes mellitus Type 2 diabetes mellitus with other specified complication 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 As directed; 3-4x daily to monitor blood glucose for DMII Start: 09-24-2023 End: 12-04-2023 Flash Glucose Scanning Reade r (Freestyle Ynes 2 [place]) misc Discontinued 0 .Route 1 September 24, 2023 4:57pm December 04, 2023 2:40pm Type 2 diabetes mellitus Type 2 diabetes mellitus with other specified complication MCC (current) use of insulin As directed; 3-4x daily to monitor blood glucose for DMII Start: 09-02-2023 End: 09-24-2023 Flash Glucose Scanning Reade r (Freestyle Ynes 2 [place]) misc Discontinued 0 .Route 1 4 Azeb 8th, 2024 2:49pm September 24, 2023 4:58pm Type 2 diabetes mellitus Type 2 diabetes mellitus with other specified complication 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 As directed; 3-4x daily to monitor blood glucose for DMII Start: 09-02-2023 End: 09-02-2023 Flash Glucose Scanning Reade r (Freestyle Ynes 2 [place]) misc Discontinued 0 .Route 1 September 02, 2023 1:27pm September 02, 2023 2:49pm Type 2 diabetes mellitus Type 2 diabetes mellitus with other specified complication MCC (current) use of insulin As directed; 3-4x daily to monitor blood glucose for DMII Start: 08-28-2023 End: 09-02-2023 Flash Glucose Scanning Reade r (Freestyle Ynes 2 [place]) misc Discontinued 0 .Route 1 August 28, 2023 12:00am September 02, 2023 1:29pm As directed Flash Glucose Sensor (Freest yle Ynes 2 Sensor) kit (20 sources) Start: 12-07-2024 Flash Glucose Sensor (Freestyle Ynes 2 Sensor) kit Active 0 .Route 1 December 07, 2024 12:00am As directed Start: 09-09-2024 End: 11-04-2024 Flash Glucose Sensor (Freest yle Ynes 2 Sensor) kit Discontinued 0 .Route 1 September 09, 2024 4:15pm November 04, 2024 9:17am Type 2 diabetes mellitus Type 2 diabetes mellitus with other specified complication 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 As directed; 3-4x daily to monitor blood glucose for DMII 2 boxes/month Start: 09-09-2024 Flash Glucose Sensor (Freestyle Ynes 2 Sensor) kit Active 0 .Route 1 September 09, 2024 4:15pm Type 2 diabetes mellitus Type 2 diabetes mellitus with other specified complication 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 As directed; 3-4x daily to monitor blood glucose for DMII 2 boxes/month Start: 06-26-2024 End: 09-09-2024 Flash Glucose Sensor (Freest yle Ynes 2 Sensor) kit Discontinued 0 .Route 1 June 26, 2024 5:47pm September 09, 2024 4:15pm Type 2 diabetes mellitus Type 2 diabetes mellitus with other specified complication 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 As directed; 3-4x daily to monitor blood glucose for DMII Start: 06-26-2024 Flash Glucose Sensor (Freestyle Ynes 2 Sensor) kit Active 0 .Route 1 June 26, 2024 5:47pm Type 2 diabetes mellitus Type 2 diabetes mellitus with other specified complication 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 As directed; 3-4x daily to monitor blood glucose for DMII Start: 02-10-2024 End: 06-26-2024 Flash Glucose Sensor (Freest yle Ynes 2 Sensor) kit Discontinued 0 .Route 1 February 10, 2024 6:14pm June 26, 2024 5:47pm Type 2 diabetes mellitus Type 2 diabetes mellitus with other specified complication MCC (current) use of insulin As directed; 3-4x daily to monitor blood glucose for DMII Start: 12-04-2023 End: 02-10-2024 Flash Glucose Sensor (Freest yle Ynes 2 Sensor) kit Discontinued 0 .Route 1 December 04, 2023 2:40pm February 10, 2024 6:14pm Type 2 diabetes mellitus Type 2 diabetes mellitus with other specified complication 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 As directed; 3-4x daily to monitor blood glucose for DMII Start: 09-02-2023 End: 12-04-2023 Flash Glucose Sensor (Freest yle Ynes 2 Sensor) kit Discontinued 0 .Route 1 September 02, 2023 2:49pm December 04, 2023 2:40pm Type 2 diabetes mellitus Type 2 diabetes mellitus with other specified complication 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 As directed; 3-4x daily to monitor blood glucose for DMII Start: 09-02-2023 End: 09-02-2023 Flash Glucose Sensor (Freest yle Yens 2 Sensor) kit Discontinued 0 .Route 1 September 02, 2023 1:28pm September 02, 2023 2:49pm Type 2 diabetes mellitus Type 2 diabetes mellitus with other specified complication MCC (current) use of insulin As directed; 3-4x daily to monitor blood glucose for DMII Start: 08-28-2023 End: 09-02-2023 Flash Glucose Sensor (Freest yle Ynes 2 Sensor) kit Discontinued 0 .Route 1 August 28, 2023 12:00am September 02, 2023 1:29pm As directed furosemide 20 mg oral tablet (6 sources) Loop Diuretic Start: 10-28-2024 End: 10-30-2024 take 1 tablet by mouth once daily in the morning Furosemide (Lasix) 20 mg tablet Active 20 mg PO EVERY MORNING 24 05October 30, 2024 11:29am Complies with drug therapy Start: 11-07-2018 End: 11-08-2018 furosemide (LASIX) injection 20 mg 150 ml glucose 50 mg/ml injection (9 sources) Start: 06-16-2021 15 g, Oral, CA N, Starting on Sat06/16/21 at 1950, Until Discontinued, Low blood sugar If blood glucose less than 50 mg/dL and patient ALERT and TOLERATING PO, give 2 tubes glucose gel. If blood glucose less than 70 mg/dL and patient ALERT and TOLERATING PO, give 1 tube glucose gel. Repeat blood glucose in 15 minutes. If blood glucose is less than 70 mg/dL, repeat treatment and recheck blood glucose in 15 minutes x2 and notify provider. Start: 06-16-2021 12.5 g, IntraV ENous, PRN, Starting on Sat06/16/21 at 1950, Until Discontinued, Low blood sugar, Blood glucose less than 70 mg/dL and patient NOT ALERT or NPO. If patient does not respond within 5 minutes, repeat dose x1. Start D5W at 100 mL/hour until ordering provider can be reached. Repeat blood glucose in 15 minutes. If blood glucose is less than 70 mg/dL, repeat treatment and recheck blood glucose in 15 minutes x2. If using Glucostabilizer, dose as instructed per system. Start: 06-16-2021 100 mL/hr, Int raVENous, PRN, Low blood sugar, Starting on Sat06/16/21 at 1950 Start infusion following administration of dextrose 50% or glucagon. Start: 08-13-2019 15 g, Oral, CA N, Low blood sugar, Starting [facility] 08/13/19 at 2338 If blood glucose less than 50 mg/dL and patient ALERT and TOLERATING PO, give 2 tubes glucose gel. If blood glucose less than 70 mg/dL and patient ALERT and TOLERATING PO, give 1 tube glucose gel. Repeat blood glucose in 15 minutes. If blood glucose is less than 70 mg/dL, repeat treatment and recheck blood glucose in 15 minutes x2 and notify provider. Start: 08-13-2019 12.5 g, Intrav enous, PRN, Low blood sugar, Blood glucose less than 70 mg/dL and patient NOT ALERT or NPO., Starting Sharlene 08/13/19 at 2338 If patient does not respond within 5 minutes, repeat dose x1. Start D5W at 100 mL/hour until ordering provider can be reached. Repeat blood glucose in 15 minutes. If blood glucose is less than 70 mg/dL, repeat treatment and recheck blood glucose in 15 minutes x2. If using Glucostabilizer, dose as instructed per system. Start: 08-13-2019 100 mL/hr, Int ravenous, at 100 mL/hr, PRN, Low blood sugar, Starting Sharlene 08/13/19 at 2338 Start infusion following administration of dextrose 50% or glucagon. Start: 11-06-2018 15 g, Oral, CA N, Low blood sugar, Starting Sharlene 11/06/18 at 1240 If blood glucose less than 50 mg/dL and patient ALERT and TOLERATING PO, give 2 tubes glucose gel. If blood glucose less than 70 mg/dL and patient ALERT and TOLERATING PO, give 1 tube glucose gel. Repeat blood glucose in 15 minutes. If blood glucose is less than 70 mg/dL, repeat treatment and recheck blood glucose in 15 minutes x2 and notify provider. Post-op Start: 11-06-2018 12.5 g, Intrav enous, PRN, Low blood sugar, Blood glucose less than 70 mg/dL and patient NOT ALERT or NPO., Starting Sharlene 11/06/18 at 1240 If patient does not respond within 5 minutes, repeat dose x1. Start D5W at 100 mL/hour until ordering provider can be reached. Repeat blood glucose in 15 minutes. If blood glucose is less than 70 mg/dL, repeat treatment and recheck blood glucose in 15 minutes x2. If using Glucostabilizer, dose as instructed per system. Post-op Start: 11-06-2018 100 mL/hr, Int ravenous, at 100 mL/hr, PRN, Low blood sugar, Starting Sharlene 11/06/18 at 1240 Start infusion following administration of dextrose 50% or glucagon. Post-op 500 ml glucose 50 mg/ml / potassium chloride 0.02 meq/ml / sodium chloride 4.5 mg/ml injection (1 source) Start: 06-16-2021 IntraVENous, a t 100 mL/hr, CONTINUOUS, Starting on Sat06/16/21 at 2015, Post-op Handicap Placard (10 sources) Start: 09-05-[address] Active 0 .ROUTE .MEDSUPPLY 1 September 05, 2022 12:00am Other reduced mobility As directed, length of time 3 years Start: 09-05-[address] Active 0 .ROUTE .MEDSUPPLY September 04, 2022 11:00pm As directed, length of time 3 years Start: 09-05-[address] Active 0 .ROUTE .MEDSUPPLY September 05, 2022 12:00am As directed, length of time 3 years 1 ml hydrALAZINE hydrochloride 20 mg/ml injection (1 source) Arteriolar Vasodilator Start: 08-13-2019 10 mg, Intravenous, EVERY 4 HOURS PRN, High Blood Pressure, SBP >150, second line, hold HR < 60 and > 110, Starting [facility] 08/13/19 at 2338 Hold for HR <60 3 ml insulin glargine 100 unt/ml pen injector (20 sources) Insulin Analog Start: 06-03-2024 End: 10-22-2024 Insulin Glargine (Lantus Solostar U-100 Insulin) 100 unit/mL (3 mL) insulin pen Active 60 U SC DAILY 54 90 October 22, 2024 2:57pm Take 35 units at night 25 units in the AM Complies with drug therapy Start: 03-05-2024 End: 06-03-2024 Insulin Glargine (Lantus Roxanna ostar U-100 Insulin) 100 unit/mL (3 mL) insulin pen Discontinued 50 U SC DAILY 45 90 March 05, 2024 1:00am June 03, 2024 1:30pm Take 30 units at night 20 units in the AM Start: 11-06-2023 End: 03-05-2024 Insulin Glargine U-300 Conc (Toujeo Max U-300 Solostar) 300 unit/mL (3 mL) insulin pen Discontinued 45 U SC AT BEDTIME November 06, 2023 12:00am March 05, 2024 2:21pm Start: 03-21-2023 End: 11-06-2023 Insulin Glargine U-300 Conc (Toujeo Solostar U-300 Insulin) 300 unit/mL (1.5 mL) insulin pen Discontinued 45 U SC DAILY 13.5 90 October 29, 2023 12:32pm November 06, 2023 11:07am Start: 11-14-2022 End: 02-27-2023 Insulin Glargine (Lantus Roxanna ostar U-100 Insulin) 100 unit/mL (3 mL) insulin pen Discontinued 38 U SC DAILY 34.2 90 November 14, 2022 4:15pm February 27, 2023 3:58pm Insulin dependent diabetes mellitus Start: 04-30-2022 End: 11-14-2022 Insulin Glargine (Lantus Roxanna ostar U-100 Insulin) 100 unit/mL (3 mL) insulin pen Discontinued 34 U SC DAILY 30.6 90 April 30, 2022 9:33am November 14, 2022 4:16pm Insulin dependent diabetes mellitus Start: 04-20-2022 End: 04-30-2022 Insulin Glargine (Lantus Roxanna ostar U-100 Insulin) 100 unit/mL (3 mL) insulin pen Discontinued 30 U SC DAILY 27 90 April 20, 2022 4:13pm April 30, 2022 9:33am Insulin dependent diabetes mellitus Start: 01-22-2022 End: 04-20-2022 Insulin Glargine (Lantus Roxanna ostar U-100 Insulin) 100 unit/mL (3 mL) insulin pen Discontinued 28 U SC DAILY 25.2 90 April 06, 2022 4:21pm April 20, 2022 4:16pm Insulin dependent diabetes mellitus Start: 06-16-2021 inject 20 [IU] by ba bcutaneous injection once daily 20 Units, SubCUTAneous, NIGHTLY, First dose on Sat06/16/21 at 2100, Until Discontinued Start: 05-25-2020 End: 01-22-2022 Insulin Glargine (Basaglar Kwikpen U-100 Insulin) 100 unit/mL (3 mL) insulin pen Discontinued 0 .ROUTE .COMPLEX 3 November 09, 2021 11:25am January 22, 2022 4:47pm Use 25 Units by injection 1 (ONE) time a day in the evening Start: 08-14-2019 insulin glargi ne (LANTUS) injection vial 10 Units Start: 12-11-2018 End: 05-25-2020 Insulin Glargine (Basaglar Kwikpen U-100 Insulin) 100 unit/mL (3 mL) insulin pen Discontinued 20 U SC DAILY December 11, 2018 12:00am May 25, 2020 2:30pm Start: 11-13-2018 insulin glargi ne (LANTUS) 100 UNIT/ML injection pen Inject 20 Units into the skin daily 1 pen 0 11/13/2018 Active Start: 11-13-2018 insulin glargi ne (LANTUS) injection vial 20 Units Start: 11-12-2018 End: 11-12-2018 insulin glargine (LANTUS) injection vial 16 Units Start: 11-11-2018 End: 11-11-2018 insulin glargine (LANTUS) injection vial 12 Units Start: 11-08-2018 End: 11-10-2018 insulin glargine (LANTUS) injection vial 6 Units End: 06-09-2021 insulin glargine (BASAGLAR KWIKPEN) 100 UNIT/ML injection pen Inject 20 Units into the skin nightly 0 06/09/2021 Discontinued (LIST CLEANUP) 3 ml insulin lispro 100 unt/ml pen injector (20 sources) Insulin Analog Start: 03-05-2024 End: 07-30-2024 Insulin Lispro (Humalog Kwikpen Insulin) 100 unit/mL insulin pen Active 13 U SC THREE TIMES A DAY 35.1 90 1 July 30, 2024 9:44am Complies with drug therapy Start: 04-30-2022 End: 02-27-2023 Insulin Lispro (Humalog Kwik pen Insulin) 100 unit/mL insulin pen Discontinued 8 U SC THREE TIMES A DAY 21.6 90 3 September 24, 2022 5:04pm November 14, 2022 4:16pm Start: 04-20-2022 End: 04-30-2022 Insulin Lispro (Humalog Kwik pen Insulin) 100 unit/mL insulin pen Discontinued 7 U SC THREE TIMES A DAY 18.9 90 3 April 20, 2022 4:13pm April 30, 2022 9:33am Start: 04-06-2022 End: 04-20-2022 Insulin Lispro (Humalog Kwik pen Insulin) 100 unit/mL insulin pen Discontinued 1 sliding scale dose SC Use as Directed 15 April 06, 2022 4:27pm April 20, 2022 4:16pm Sliding scale 3 times per day Start: 04-06-2022 End: 04-20-2022 Insulin Lispro (Humalog Kwik pen Insulin) 100 unit/mL insulin pen Discontinued 1 sliding scale dose SC Use as Directed April 06, 2022 4:27pm April 20, 2022 4:16pm Sliding scale 3 times per day Start: 06-17-2021 inject 9 [IU] by sub cutaneous injection three times daily at mealtime 9 Units, SubCUTAneous, 3 TIMES DAILY WITH MEALS, First dose on Sat06/17/21 at 0800, Until Discontinued Substituted for Insulin aspart (NOVOLOG). Start: 08-14-2019 0-6 Units, Sub cutaneous, 3 TIMES DAILY WITH MEALS, First dose on Sat08/14/19 at 0800 Corrective Low Dose Algorithm Glucose: Dose: 70-139 &nbsp ; &nb sp; No Insulin 140-199 1 Unit 200-249 2 Units 250-299 3 Units 300-349 4 Units 350-399 5 Units Over 399 6 Units Start: 08-14-2019 0-3 Units, Sub cutaneous, NIGHTLY, First dose on Sat08/14/19 at 0000 If continuous tube feedings/TPN/NPO, give correction dose based on result, no reduction in dose. If eating or bolus tube feeding: Corrective Bedtime (50%) Low Dose Algorithm Glucose: Dose: 70-139 &nbsp ; &nb sp; No Insulin 140-249 1 Unit 250-349 2 Units Over 350 3 Units Start: 11-13-2018 insulin lispro (HUMALOG KWIKPEN) 100 UNIT/ML pen Inject 9 Units into the skin 3 times daily (before meals) 1 pen 0 11/13/2018 Active Start: 11-13-2018 insulin lispro (HUMALOG) injection vial 9 Units Start: 11-11-2018 End: 11-12-2018 insulin lispro (HUMALOG) inj ection vial 7 Units Start: 11-11-2018 End: 11-11-2018 insulin lispro (HUMALOG) inj ection vial 4 Units Start: 11-09-2018 End: 11-10-2018 insulin lispro (HUMALOG) inj ection vial 2 Units Start: 11-07-2018 End: 11-11-2018 insulin lispro (HUMALOG) inj ection vial 0-12 Units Start: 05-23-2018 End: 06-05-2018 Insulin Lispro 100 UNIT/ML i nsulin pen Discontinued 0 U SC BEFORE MEALS AND AT BEDTIME Protocol: - Use for Total Daily Dose of Insulin 37-55 units- Obsese, infected, or steroid patientsMEDIUM DOSING ALGORITHIM Condition: 150-189 mg/dl = 1 unit Condition: 190-229 mg/dl = 2 units Condition: 230-269 mg/dl = 3 units Condition: 270-309 mg/dl = 4 units Condition: 310-349 mg/dl = 5 units Condition: 350-399 mg/dl = 6 units Condition: 400-449 mg/dl = 7 units Condition: Greater than 449 call physician 0 May 23, 2018 12:00am June 05, 2018 3:04pm Please contact the information source for Protocol details. Start: 05-23-2018 End: 06-05-2018 Insulin Lispro 100 UNIT/ML i nsulin pen Discontinued 0 U SC BEFORE MEALS AND AT BEDTIME 0 May 23, 2018 12:00am June 05, 2018 3:04pm Please contact the information source for Protocol details. Start: 05-23-2018 End: 06-05-2018 Insulin Lispro Discontinued 0 UNIT SC BEFORE MEALS AND AT BEDTIME May 23, 2018 12:00am June 05, 2018 3:04pm 4 ml labetalol hydrochloride 5 mg/ml cartridge (1 source) beta-Adrenergic Daniela Start: 08-13-2019 10 mg, Intravenous, EVERY 6 HOURS PRN, High Blood Pressure, SBP > 150, hold HR < 60, first line, Starting [facility] 08/13/19 at 2338 Lactobacillus (13 sources) Lactobacillus (ACIDOPHILUS PO) Take by mouth 0 Suspended Lactobacillus (A CIDOPHILUS PO) Take by mouth 0 Active lactobacillus acidophilus [id number] unt oral capsule (20 sources) Start: 10-20-2021 take 1 capsule by mouth once daily Lactobacillus Acidophilus (Acidophilus) capsule Active 100 mg PO DAILY October 20, 2021 12:00am Complies with drug therapy Start: 10-20-2021 take 1 capsule by mo ut once daily Lactobacillus Acidophilus (Acidophilus) capsule Active 100 MG PO DAILY October 20, 2021 12:00am Start: 06-03-2018 End: 12-07-2019 take 1 capsule by mouth once daily Lactobacillus Acidophilus capsule Discontinued 1 NMA PO DAILY June 03, 2018 12:00am December 07, 2019 1:32pm probiotic 1 capsule PO DAILY; Start: 06-03-2018 End: 12-07-2019 take 1 capsule by mouth once daily Lactobacillus Acidophilus Discontinued 1 CAP PO DAILY June 02, 2018 11:00pm December 07, 2019 12:32pm 1 capsule PO DAILY; Start: 06-03-2018 End: 12-07-2019 take 1 capsule by mouth once daily Lactobacillus Acidophilus Discontinued 1 CAP PO DAILY June 03, 2018 12:00am December 07, 2019 1:32pm 1 capsule PO DAILY; Start: 12-23-2017 End: 05-23-2018 Lactobacillus Acidophilus 1 EACH capsule Discontinued 1 NMA PO DAILY December 23, 2017 12:00am May 23, 2018 8:18am supplement Start: 12-23-2017 End: 05-23-2018 take 1 capsule by mouth once daily Lactobacillus Acidophilus Discontinued 1 CAP PO DAILY December 22, 2017 11:00pm May 23, 2018 7:18am Start: 12-23-2017 End: 05-23-2018 take 1 capsule by mouth once daily Lactobacillus Acidophilus Discontinued 1 CAP PO DAILY December 23, 2017 12:00am May 23, 2018 8:18am lansoprazole 15 mg disintegrating oral tablet (20 sources) Proton Pump Inhibitor Start: 12-23-2017 take 1 tablet by mouth once daily Lansoprazole 15 MG tablet,disintegrat, delay rel Active 15 mg PO DAILY December 23, 2017 12:00am reflux Complies with drug therapy Start: 05-20-2017 take 1 capsule by mo uth once daily lansoprazole (PREVACID) 15 MG delayed release capsule TAKE 1 CAPSULE BY MOUTH DAILY 30 capsule 0 05/20/2017 Active 50 ml magnesium sulfate 40 mg/ml injection (1 source) Start: 11-06-2018 2 g, Intravenous, at 25 mL/h r, Administer over 2 Hours, PRN, Other, hypomagnesemia, Starting [facility] 11/06/18 at 1240 Via central line - If patient has acute/chronic renal failure do not initiate protocol, call MD for management. Mag level Dose Less than or equal to 1.0 Give 2 grams at 1 gm/hr. Call MD. Monitor BP and EKG. Repeat Magnesium level 60 minutes post infusion. 1.1 - 1.5 &nbsp ; & nbsp;&n bsp; Give 2 grams at 1 gm/hr. Repeat Magnesium level 60 minutes post infusion 1.6 - 1.9 & nbsp; &nb sp;&nbs p; Give 2 grams at 1 gm/hr. Repeat Magnesium level 60 minutes post infusion Greater than 1.9 &nbsp ; No coverage Post-op melatonin 1 mg oral tablet (20 sources) Start: 05-15-2018 t a k e 1 t a b l e t b y m o u t h o n c e d a i l y a s n e e d e d f o r s l e e p melatonin 1 MG tablet Take 1 tablet by m outh nightly as needed for Sleep 30 tablet 0 05/15/2018 Active Start: 05-15-2018 End: 05-23-2018 Melatonin 3 mg Tablet Discon tinued 3 mg as needed for Sleep May 15, 2018 12:00am May 23, 2018 8:19am Start: 05-15-2018 End: 05-23-2018 Melatonin 3 mg Tablet Discon tinued 3 MG May 14, 2018 11:00pm May 23, 2018 7:19am Start: 05-15-2018 End: 05-23-2018 Melatonin 3 mg Tablet Discon tinued 3 MG May 15, 2018 12:00am May 23, 2018 8:19am 1 ml morphine sulfate 4 mg/ml cartridge (1 source) Opioid Agonist Start: 08-13-2019 take 2 mg by mouth every two hours as needed 2 mg, Intravenous, EVERY 2 HOURS PRN, IV Breakthrough, Starting [facility] 08/13/19 at 2338 If oral and IV narcotics ordered, use oral first and only use IV if oral is ineffective or cannot take oral. Do Not give oral and IV within 1 hour of each other unless specifically ordered. 2 ml ondansetron 2 mg/ml injection (2 sources) Serotonin-3 Receptor Antagonist Start: 08-13-2019 4 mg, Intravenous, EVERY 6 HOURS PRN, Nausea, Vomiting, Starting [facility] 08/13/19 at 2338 Start: 11-06-2018 4 mg, Intraven ous, EVERY 8 HOURS PRN, Nausea, Starting Sharlene 11/06/18 at 1240, Post-op oxyCODONE hydrochloride 5 mg oral tablet (2 sources) Opioid Agonist Start: 08-15-2019 End: 08-22-2019 take 1 tablet by mouth every six hours as needed for pain oxyCODONE (ROXICODONE) 5 MG immediate release tablet Indications: Traumatic intracranial hemorrhage with loss of consciousness, initial encounter ([facility]) Take 1 tablet by mouth every 6 hours as needed for Pain for up to 7 days. 28 tablet 0 08/15/2019 08/22/2019 Active Start: 08-13-2019 oxyCODONE (DUARTE ICODONE) immediate release tablet 5 mg pantoprazole (PROTONIX) injection 40 mg (1 source) Start: 08-14-2019 pantoprazole ( PROTONIX) injection 40 mg perflutren lipid microspheres (DEFINITY) injection 1.65 mg (1 source) Start: 08-13-2019 End: 08-16-2019 1.65 mg (1.5 mL), Intravenous, IMG ONCE PRN, Other, Suboptimal Echo Image, Starting [facility] 08/13/19 at 2338, For 72 hours Administer up to 1.65 mg via slow IVP for suboptimal echocardiogram enhancement. May administer as concentrated dose or diluted in 8.5 mL of 0.9% sodium chloride for a total volume of 10 mL. May administer as divided doses to reach optimal image enhancement. plantago seed 500 mg oral capsule (6 sources) Psyllium 500 MG CAPS Take by mouth daily 0 Active polyethylene glycol 3350 99543 mg powder for oral solution (20 sources) Osmotic Laxative Start: 08-14-2019 17 g, Oral, D AILY, First dose on Sat08/14/19 at 0900 Start: 11-06-2018 17 g, Oral, DA BANDAR, First dose on Sharlene 11/06/18 at 1300 First line therapy for constipation Post-op Start: 05-15-2018 End: 05-23-2018 Polyethylene Glycol 3350 (Gl ycolax) 119 GM Powder Discontinued 17 g May 15, 2018 12:00am May 23, 2018 8:20am CONSTIPATION microencapsulated potassium chloride 10 meq extended release oral tablet (7 sources) Start: 10-28-2024 End: 10-30-2024 take 1 tablet by mouth once daily Potassium Chloride 10 mEq tablet,ER particles/crystals Active 10 meq PO daily 24 05October 30, 2024 11:30am Complies with drug therapy Start: 11-06-2018 20 mEq, Oral, PRN, hypokalemia, Starting [facility]arlene 11/06/18 at 1240 If patient is intubated or not tolerating PO use PRN IV replacement protocol Potassium level Dose < 'or' = 3.5-Give 40mEq 3.6 - 4.0-Give 20 mEq Recheck potassium level 1 hour after replacement given, place order for lab under [place] If potassium level <=2 or >=6: Call surgeon. Do not crush or break. Post-op Start: 11-06-2018 20 mEq, Intrav enous, at 50 mL/hr, Administer over 60 Minutes, PRN, Other, hypokalemia, Starting Sharlene 11/06/18 at 1240 Via central line - do not use if urine output below 30 mL/hr or if patient is on peritoneal or hemodialysis. Potassium level Dose Less than or equal to 3.5 &n bsp; & nbsp; &nbsp ; Give 20mEq x 3 doses 3.6 - 4.0 &n bsp; & nbsp; &nbsp ; &nbs p; &nb sp; &n bsp; Give 20 mEq x 2 doses 4.1 - 4.5 &n bsp; & nbsp; &nbsp ; &nbs p; &nb sp; &n bsp; Give 20mEq x 1 dose 4.6 - 5.9 &n bsp; & nbsp; &nbsp ; &nbs p; &nb sp; &n bsp; No coverage Less than or equal to 2 or Greater than or equal to 6 Call surgeon. Repeat potassium level 1 hour post-infusion and follow protocol as indicated. Post-op psyllium 400 mg oral capsule (20 sources) Start: 10-20-2021 Psyllium Husk (Daily Fiber) 0.4 gram capsule Active 0.4 g PO DAILY October 20, 2021 12:00am Complies with drug therapy Start: 10-22-2018 End: 12-07-2019 Psyllium Husk 0.52 GM capsul e Discontinued 0.52 g PO DAILY October 22, 2018 12:00am December 07, 2019 1:32pm ibs Start: 12-23-2017 End: 05-23-2018 take 1 dose by mouth once daily Psyllium Husk 1 PACKET packet Discontinued 1 NMA PO DAILY December 23, 2017 12:00am May 23, 2018 8:20am constipation Start: 12-23-2017 End: 05-23-2018 Psyllium Husk (Aspartame) Discontinued 1 PACKET PO DAILY December 23, 2017 12:00am May 23, 2018 8:20am End: 06-16-2021 Psyllium 500 MG CAPS Take by mouth daily 0 06/16/2021 Discontinued (LIST CLEANUP) Psyllium 500 MG CAPS Take by mouth daily 0 Active sacubitril 97 mg / valsartan 103 mg oral tablet (20 sources) Angiotensin 2 Receptor Daniela Start: 10-28-2024 End: 10-30-2024 Sacubitril-Valsartan 97-103 mg tablet Active 1 {tbl} PO TWICE A DAY 180 3 October 30, 2024 11:29am Complies with drug therapy Start: 10-28-2024 Sacubitril-Mildred sartan 97-103 mg tablet Active 1 {tbl} PO TWICE A DAY October 28, 2024 12:00am Start: 05-13-2024 End: 10-28-2024 Sacubitril-Valsartan (Entres to) 49-51 mg tablet Discontinued 1 {tbl} PO TWICE A DAY 180 May 13, 2024 12:00am October 28, 2024 2:57pm Start: 05-13-2024 Sacubitril-Mildred sartan (Entresto) 49-51 mg tablet Active 1 {tbl} PO TWICE A DAY 180 May 13, 2024 12:00am Start: 09-27-2021 End: 05-13-2024 Sacubitril-Valsartan (Entres to) 24-26 mg tablet Discontinued 1 {tbl} PO TWICE A DAY 60 October 14, 2023 9:28am May 13, 2024 3:59pm sennosides, penitentiary 8.6 mg oral tablet (1 source) Start: 08-13-2019 take 1 tablet by mouth once daily as needed for constipation 8.6 mg (1 tablet), Oral, DAILY PRN, Constipation, Starting [facility] 08/13/19 at 2338 Second line therapy for constipation, After 24 hours, if no result from first line PRN therapy, give second line therapy in combination with first line therapy. tiZANidine 4 mg oral tablet (20 sources) Central alpha-2 Adrenergic Agonist Start: 04-02-2024 End: 12-03-2024 take 3 tablets by mouth at bedtime Tizanidine 4 mg tablet Active 12 mg PO AT BEDTIME 90 December 03, 2024 2:32pm muscle spasticity/cramps Complies with drug therapy Start: 11-07-2022 End: 04-02-2024 take 1-3 tablets by mouth once daily as needed Tizanidine 4 mg tablet Discontinued 4 mg .ROUTE .COMPLEX as needed for muscle spasticity/cramps 90 September 29, 2023 3:31pm April 02, 2024 2:48pm Take 1 to 3 tablets orally nightly as needed. Completed/Discontinued Medications Medication Drug Class(es) Dates Sig (Normalized) Sig (Original) acetaminophen 500 mg oral tablet (3 sources) Start: 06-16-2021 End: 06-16-2021 acetaminophen (TYLENOL) tablet 1,000 mg Start: 08-13-2019 take 650 mg by mouth every four hours as needed for pain, then take 4000 mg by mouth every twenty-four hours as needed for pain 650 mg, Oral, EVERY 4 HOURS PRN, Pain Mild (1-3), Fever, Fever >100.5 (38 C), Starting [facility] 08/13/19 at 2338 Maximum dose of acetaminophen is 4000 mg from all sources in 24 hours. Start: 11-06-2018 take 500 mg by mouth every four hours as needed for pain, then take 4000 mg by mouth every twenty-four hours as needed for pain 500 mg, Oral, EVERY 4 HOURS PRN, Pain Mild (1-3), Fever, Fever >100.5 F (38 C), Starting [facility]arlene 11/06/18 at 1240 Maximum dose of acetaminophen is 4000 mg from all sources in 24 hours. Post-op 20 ml albumin human, pen[facility]entiary 250 mg/ml injection (1 source) Human Serum Albumin Start: 11-06-2018 End: 11-06-2018 25 g, Intravenous, PRN, Othe r, first fluid bolus challenge PRN: PAD below goal (18) and Low CI (less than 2.0) and/or Low BP (less than 90 SBP and/or less than 60 MAP) and/or Low urine output (less than 30ml/hr) per hemodynamic goals, Starting Sharlene 11/06/18 at 1240, For 1 dose Use if hgb greater than 7.5 and PAD below goal (18) and Low CI (less than 2.0) and/or Low BP (less than 90 SBP and/or less than 60 MAP) and/or Low urine output (less than 30ml/hr) per hemodynamic goals If hemodynamic goals unattained, proceed to second fluid bolus challenge. If hgb less than 7.5 notify surgeon for orders. Post-op amiodarone hydrochloride 200 mg oral tablet (20 sources) Antiarrhythmic Start: 05-18-2019 End: 05-28-2019 take 1 tablet by mouth once daily Amiodarone 200 mg tablet Discontinued 200 mg PO DAILY 7 0 May 18, 2019 1:29pm May 28, 2019 10:27am Start: 11-13-2018 End: 06-16-2021 amiodarone (CORDARONE) 200 M G tablet Take 1 tab by mouth two times a days with meals (breakfast/dinner) for 14 days ending: Nov 27 2018. On Nov 28 2018 take one tab by mouth daily 30 tablet 3 11/13/2018 06/16/2021 Discontinued (LIST CLEANUP) Start: 11-13-2018 amiodarone (CO RDARONE) tablet 400 mg Start: 10-25-2018 End: 05-18-2019 take 2 tablets by mouth twice daily in the evening, then take 1 tablet by mouth once daily Amiodarone 200 mg tablet Discontinued 200 mg PO DAILY 30 December 11, 2018 12:28pm May 18, 2019 1:29pm Take amiodarone 400 mg twice daily through 10/28/18 p.m. dose. Then take 200mg daily. Start: 10-25-2018 End: 05-18-2019 take 400 mg by mouth twice daily in the evening, then take 200 mg by mouth once daily Amiodarone Discontinued 200 MG PO DAILY December 11, 2018 12:28pm May 18, 2019 1:29pm Take amiodarone 400 mg twice daily through 10/28/18 p.m. dose. Then take 200mg daily. End: 11-13-2018 take 1 tablet by mouth once daily amiodarone (CORDARONE) 200 MG tablet Take 200 mg by mouth daily 0 11/13/2018 Discontinued (DOSE ADJUSTMENT) amLODIPine 5 mg oral tablet (20 sources) Dihydropyridine Calcium Channel Daniela Start: 12-07-2019 End: 01-13-2024 take 1 tablet by mouth once daily Amlodipine 5 mg tablet Discontinued 5 mg PO DAILY 90 3 January 14, 2023 4:16pm January 13, 2024 5:55pm blood pressure Start: 10-22-2018 End: 12-11-2018 take 1 tablet by mouth once daily Amlodipine 5 MG tablet Discontinued 5 mg PO DAILY October 22, 2018 12:00am December 11, 2018 9:59am BP amoxicillin 875 mg / clavulanate 125 mg oral tablet (18 sources) Penicillin-class Antibacterial Start: 02-09-2019 End: 05-28-2019 Amoxicillin-Pot Clavulanate 875-125 mg tablet Discontinued 1 {tbl} PO TWICE A DAY 20 0 February 09, 2019 1:00am May 28, 2019 10:20am Start: 02-09-2019 End: 05-28-2019 take 1 tablet by mouth twice daily Amoxicillin-Pot Clavulanate Discontinued 1 TABLET PO TWICE A DAY February 09, 2019 1:00am May 28, 2019 10:20am aspirin 81 mg delayed release oral tablet (20 sources) Platelet Aggregation Inhibitor, Nonsteroidal Anti-inflammatory Drug Start: 09-12-2020 End: 09-14-2020 take 1 tablet by mouth once daily Aspirin (Adult Aspirin Regimen) 81 mg tablet,delayed release (DR/EC) Discontinued 81 mg PO DAILY September 12, 2020 12:00am September 14, 2020 10:01am Start: 11-07-2018 aspirin EC tab let 325 mg Start: 12-23-2017 End: 11-30-2019 take 1 tablet by mouth once daily Aspirin 81 MG tablet Discontinued 81 mg PO DAILY December 23, 2017 12:00am November 30, 2019 2:54pm heart health End: 06-09-2021 take 1 tablet by mouth once daily aspirin 81 MG tablet Take 81 mg by mouth daily 0 06/09/2021 Discontinued (LIST CLEANUP) atorvastatin 80 mg oral tablet (20 sources) HMG-CoA Reductase Inhibitor Start: 10-23-2022 End: 05-29-2023 take 1 tablet by mouth once daily Atorvastatin Discontinued 0 .ROUTE .COMPLEX 90 October 23, 2022 1:14pm May 29, 2023 2:32pm TAKE 1 TABLET BY MOUTH EVERY DAY Start: 10-23-2022 take 1 tablet by antonietta th once daily Atorvastatin Active 0 .ROUTE .COMPLEX 90 October 23, 2022 12:14pm TAKE 1 TABLET BY MOUTH EVERY DAY Start: 10-23-2022 take 1 tablet by antonietta th once daily Atorvastatin Active 0 .ROUTE .COMPLEX 90 October 23, 2022 1:14pm TAKE 1 TABLET BY MOUTH EVERY DAY Start: 09-06-2021 End: 10-13-2024 take 1 tablet by mouth once daily Atorvastatin 80 mg tablet Discontinued 0 .ROUTE .COMPLEX 90 March 24, 2024 1:44pm October 13, 2024 4:20pm TAKE 1 TABLET BY MOUTH EVERY DAY Start: 09-30-2020 End: 09-06-2021 Atorvastatin 80 mg tablet Discontinued 40 mg PO DAILY September 30, 2020 1:33pm September 06, 2021 10:34am cholesterol Start: 09-30-2020 End: 09-06-2021 take 40 mg by mouth once daily Atorvastatin Discontinu ed 40 MG PO DAILY September 30, 2020 1:33pm September 06, 2021 10:34am Start: 12-23-2017 End: 09-30-2020 take 1 tablet by mouth once daily Atorvastatin 80 MG tablet Discontinued 80 mg PO DAILY December 23, 2017 12:00am September 30, 2020 1:33pm cholesterol Blood-Glucose Meter (Onetouc h Ultra2 Meter) kit (17 sources) Start: 10-24-2021 End: 04-03-2023 Blood-Glucose Meter (Onetouc h Ultra2 Meter) kit Discontinued 0 .Route 1 2 October 24, 2021 12:00am April 03, 2023 2:35pm Insulin dependent diabetes mellitus Check 4x daily Start: 10-24-2021 End: 04-03-2023 Blood-Glucose Meter (Onetouc h Ultra2 Meter) kit Discontinued 0 .Route 1 October 24, 2021 12:00am April 03, 2023 2:35pm Check 4x daily Start: 10-24-2021 End: 04-03-2023 Blood-Glucose Meter (Onetouc h Ultra2 Meter) kit Discontinued 0 .Route 1 October 23, 2021 11:00pm April 03, 2023 1:35pm Check 4x daily Start: 10-24-2021 Blood-Glucose Meter (Onetouch Ultra2 Meter) kit Active 0 .Route 1 October 23, 2021 11:00pm Check 4x daily Start: 10-24-2021 Blood-Glucose Meter (Onetouch Ultra2 Meter) kit Active 0 .Route 1 October 24, 2021 12:00am Check 4x daily calcium gluconate 2 g in sodium chloride 0.9 % 100 mL IVPB (1 source) Start: 11-06-2018 2 g, Intraveno us, PRN, Starting Sharlene 11/06/18 at 1240, Until Discontinued Via central line. Repeat serum ionized calcium 2 hours after infusion completed. Post-op carvedilol 12.5 mg oral tablet (20 sources) alpha-Adrenergi c Daniela, beta-Adrenergic Daniela Start: 11-10-2021 End: 02-17-2024 take 1 tablet by mouth twice daily at mealtime Carvedilol 12.5 mg tablet Discontinued 12.5 mg PO TWICE A DAY 180 February 11, 2023 2:12pm February 17, 2024 11:07am must administer with a meal/food Start: 11-23-2020 End: 11-10-2021 take 1 tablet by mouth twice daily at mealtime Carvedilol 6.25 mg tablet Discontinued 6.25 mg PO TWICE A DAY November 23, 2020 8:28am November 10, 2021 3:30pm blood pressure must administer with a meal/food Start: 05-25-2020 End: 11-23-2020 take 3.125 mg by mouth twice daily at mealtime Carvedilol 6.25 mg tablet Discontinued 3.125 mg PO TWICE A DAY May 25, 2020 12:00am November 23, 2020 8:28am blood pressure must administer with a meal/food Start: 05-25-2020 End: 11-23-2020 take 3.125 mg by mouth twice daily at mealtime Carvedilol Discontinued 3.125 MG PO TWICE A DAY May 25, 2020 12:00am November 23, 2020 8:28am must administer with a meal/food Start: 12-07-2019 End: 05-25-2020 take 6.25 mg by mouth twice daily Carvedilol Discontinued 6.25 MG PO TWICE A DAY December 07, 2019 1:31pm May 25, 2020 2:29pm Start: 11-13-2018 End: 05-25-2020 take 2 tablets by mouth twice daily Carvedilol 3.125 mg tablet Discontinued 6.25 mg PO TWICE A DAY December 07, 2019 1:31pm May 25, 2020 2:29pm Start: 11-10-2018 carvedilol (CO REG) tablet 6.25 mg Start: 10-25-2018 End: 12-07-2019 take 1 tablet by mouth twice daily Carvedilol 3.125 mg tablet Discontinued 3.125 mg PO TWICE A DAY 180 February 09, 2019 3:30pm December 07, 2019 1:33pm Start: 12-25-2017 End: 05-15-2018 take 1 tablet by mouth twice daily Carvedilol 3.125 mg tablet Discontinued 3.125 mg PO TWICE A DAY 180 3 February 06, 2018 3:09pm May 15, 2018 10:08pm Start: 12-23-2017 End: 12-25-2017 take 1 tablet by mouth twice daily Carvedilol 12.5 MG tablet Discontinued 12.5 mg PO TWICE A DAY December 23, 2017 12:00am December 25, 2017 11:03am ceFAZolin 2000 mg injection (1 source) Cephalosporin Antibacterial Start: 11-06-2018 End: 11-07-2018 2 g, Intravenous, EVERY 8 HOURS, 5 doses, First dose on Sat11/06/18 at 1300, Last dose on Sat11/07/18 at 2100, Post-op celecoxib 400 mg oral capsule (1 source) Nonsteroidal Anti-inflammatory Drug Start: 06-16-2021 End: 06-16-2021 celecoxib (CELEBREX) capsule 400 mg chlorhexidine gluconate 1.2 mg/ml mouthwash (6 sources) Start: 11-06-2018 End: 11-08-2018 take 15 mL by mouth twice daily 15 mL, Mouth/Throat, 2 TIMES DAILY, First dose on Sat11/06/18 at 1300, For 7 days Rinse and spit. Do not swallow. Post-op Start: 11-06-2018 End: 11-06-2018 chlorhexidine (PERIDEX) 0.12 % solution 15 mL Start: 11-06-2018 End: 11-06-2018 chlorhexidine (HIBICLENS) 4 % liquid Start: 11-02-2018 End: 11-13-2018 chlorhexidine (PERIDEX) 0.12 % solution Swish and spit 15mL the night prior to surgery 118 mL 0 11/02/2018 11/13/2018 Discontinued (Stop Taking at Discharge) chlorthalidone 50 mg oral tablet (20 sources) Thiazide-like Diuretic Start: 05-15-2018 End: 06-03-2018 Chlorthalidone 50 MG tablet Discontinued 25 mg PO DAILY May 15, 2018 10:08pm June 03, 2018 10:50am UNSURE Start: 05-15-2018 End: 06-03-2018 take 25 mg by mouth once daily Chlorthalidone Disconti nued 25 MG PO DAILY May 15, 2018 10:08pm June 03, 2018 10:50am Start: 12-25-2017 End: 05-15-2018 Chlorthalidone 50 MG tablet Discontinued 12.5 mg PO DAILY December 25, 2017 12:00am May 15, 2018 10:08pm Start: 12-25-2017 End: 05-15-2018 take 12.5 mg by mouth once daily Chlorthalidone Discontinued 12.5 MG PO DAILY December 25, 2017 12:00am May 15, 2018 10:08pm Start: 12-18-2017 End: 12-11-2018 take 1 tablet by mouth once daily Chlorthalidone 25 MG tablet Discontinued 25 mg PO DAILY December 23, 2017 12:00am December 25, 2017 11:02am clopidogrel 75 mg oral tablet (20 sources) P2Y12 Platelet Inhibitor Start: 12-25-2017 End: 01-09-2018 take 1 tablet by mouth twice daily Clopidogrel 75 MG tablet Discontinued 75 mg PO TWICE A DAY December 25, 2017 12:00am January 09, 2018 3:57pm Start: 12-23-2017 End: 01-08-2018 take 1 tablet by mouth once daily Clopidogrel 75 MG tablet Discontinued 75 mg PO DAILY December 23, 2017 12:00am January 08, 2018 3:55pm anti platelet desmopressin (DDAVP) 41 mcg in sodium chloride 0.9 % 50 mL IVPB (1 source) Start: 08-13-2019 End: 08-13-2019 desmopressin (DDAVP) 41 mcg in sodium chloride 0.9 % 50 mL IVPB docusate sodium 100 mg oral capsule (20 sources) Start: 05-15-2018 End: 06-16-2021 take 1 capsule by mouth once daily as needed for constipation Docusate Sodium 100 MG capsule Discontinued 100 mg PO DAILY as needed for Constipation May 15, 2018 12:00am May 25, 2020 2:30pm empagliflozin 25 mg oral tablet (20 sources) Sodium-Glucose Cotransporter 2 Inhibitor Start: 01-22-2022 End: 10-01-2024 take 1 tablet by mouth once daily Empagliflozin 25 mg tablet Discontinued 25 mg PO DAILY January 13, 2024 5:54pm March 05, 2024 2:28pm diabetes Start: 05-28-2019 End: 01-22-2022 take 1 tablet by mouth once daily Empagliflozin (Jardiance) 10 mg tablet Discontinued 10 mg PO DAILY December 11, 2021 12:25pm January 22, 2022 4:46pm diabetes EPINEPHrine (EPINEPHrine HCL) 5 mg in dextrose 5 % 250 mL infusion (1 source) Start: 11-06-2018 End: 11-07-2018 0.01 mcg/kg/min 92.5 kg (2.7 75 mL/hr, rounded to 2.8 mL/hr), Intravenous, at 2.8 mL/hr, CONTINUOUS, Starting [facility] 11/06/18 at 1300 May titrate up to 0.2 mcg/kg/min to maintain MAP greater than 65 and less than 75 Titrate by 0.02 mcg/kg/min no faster than every 15 minutes to goal May titrate outside of defined titration parameters (increments and frequency) under the direction of the provider If MAP greater than 75 wean drip, titrate by 0.02 mcg/kg/min no faster than every 15 minutes to goal MAP greater than 65 Post-op famotidine 20 mg oral tablet (2 sources) Histamine-2 Receptor Antagonist Start: 06-16-2021 End: 06-16-2021 famotidine (PEPCID) tablet 2 0 mg Start: 08-14-2019 End: 08-14-2019 20 mg, Intravenous, 2 TIMES DAILY, First dose on Sat08/14/19 at 0000 Dilute with 5-10 mL 0.9% sodium chloride. Administer over 2 minutes. Flash Glucose Scanning Reade r (Freestyle Ynes 14 Day [place]) misc (17 sources) Start: 10-20-2021 End: 10-24-2021 Flash Glucose Scanning Reade r (Freestyle Ynes 14 Day [place]) misc Discontinued 0 .Route 1 October 20, 2021 12:00am October 24, 2021 4:44pm Insulin dependent diabetes mellitus As directed Start: 10-20-2021 End: 10-24-2021 Flash Glucose Scanning Reade r (Freestyle Ynes 14 Day [place]) misc Discontinued 0 .Route 1 October 19, 2021 11:00pm October 24, 2021 3:44pm As directed Start: 10-20-2021 End: 10-24-2021 Flash Glucose Scanning Reade r (Freestyle Ynes 14 Day [place]) misc Discontinued 0 .Route 1 October 20, 2021 12:00am October 24, 2021 4:44pm As directed Flash Glucose Sensor (Freest yle Ynes 3 Sensor) kit (17 sources) Start: 10-20-2021 End: 10-24-2021 Flash Glucose Sensor (Freest yle Ynes 3 Sensor) kit Discontinued 0 .Route 1 3 October 20, 2021 12:00am October 24, 2021 4:44pm Insulin dependent diabetes mellitus As directed Start: 10-20-2021 End: 10-24-2021 Flash Glucose Sensor (Freest yle Ynes 3 Sensor) kit Discontinued 0 .Route 1 October 19, 2021 11:00pm October 24, 2021 3:44pm As directed Start: 10-20-2021 End: 10-24-2021 Flash Glucose Sensor (Freest yle Ynes 3 Sensor) kit Discontinued 0 .Route 1 October 20, 2021 12:00am October 24, 2021 4:44pm As directed gabapentin 100 mg oral capsule (1 source) Anti-epileptic Agent Start: 06-16-2021 End: 06-16-2021 gabapentin (NEURONTIN) capsule 100 mg glipiZIDE 10 mg oral tablet (20 sources) Sulfonylurea Start: 10-22-2018 End: 12-11-2018 take 1 tablet by mouth twice daily Glipizide 10 MG tablet Discontinued 10 mg PO TWICE A DAY October 22, 2018 12:00am December 11, 2018 10:00am diabetic Start: 05-23-2018 End: 11-13-2018 take 1 tablet by mouth once daily glipiZIDE (GLUCOTROL) 5 MG tablet Take 5 mg by mouth daily 0 05/23/2018 11/13/2018 Discontinued (Stop Taking at Discharge) Start: 05-23-2018 glipiZIDE (GLU COTROL) 5 MG tablet TAKE 1/2 TABLET ONCE DAILY 0 05/23/2018 Active Start: 05-23-2018 End: 10-22-2018 take 1 tablet by mouth once daily Glipizide 2.5 MG tablet extended release 24hr Discontinued 2.5 mg PO DAILY 30 0 May 23, 2018 12:00am October 22, 2018 6:53pm glucagon (rdna) 1 mg injection (3 sources) Antihypoglycemic Agent Start: 06-16-2021 take 1 mL intravenously every hour 1 mg, IntraMUSCular, PRN, Starting on Sat06/16/21 at 1950, Until Discontinued, Low blood sugar, Blood glucose less than 70 mg/dL and patient NOT ALERT or NPO and does not have IV access. After administration, attempt intravenous access and start D5W at 100 mL/hr. Repeat blood glucose in 15 minutes x2 and notify provider. Start: 08-13-2019 take 1 mL intravenou s route every hour 1 mg, Intramuscular, PRN, Low blood sugar, Blood glucose less than 70 mg/dL and patient NOT ALERT or NPO and does not have IV access., Starting Sharlene 08/13/19 at 2338 After administration, attempt intravenous access and start D5W at 100 mL/hr. Repeat blood glucose in 15 minutes x2 and notify provider. Start: 11-06-2018 take 1 mL intravenou s route every hour 1 mg, Intramuscular, PRN, Low blood sugar, Blood glucose less than 70 mg/dL and patient NOT ALERT or NPO and does not have IV access., Starting [facility] 11/06/18 at 1240 After administration, attempt intravenous access and start D5W at 100 mL/hr. Repeat blood glucose in 15 minutes x2 and notify provider. 3 ml insulin detemir 100 unt/ml pen injector (4 sources) Insulin Analog Start: 03-20-2023 End: 03-21-2023 Insulin Detemir U-100 (Levemir Flexpen) 100 unit/mL (3 mL) insulin pen Discontinued 45 U SC AT BEDTIME 40.5 90 March 20, 2023 2:58pm March 21, 2023 1:20pm Start: 02-27-2023 End: 03-20-2023 Insulin Detemir U-100 (Levem ir Flexpen) 100 unit/mL (3 mL) insulin pen Discontinued 40 U SC AT BEDTIME 36 90 February 27, 2023 1:00am March 20, 2023 2:59pm Insulin Detemir U-100 (Levem ir Flexpen) 100 unit/mL (3 mL) insulin pen (12 sources) Start: 03-20-2023 End: 03-21-2023 Insulin Detemir U-100 (Levem ir Flexpen) 100 unit/mL (3 mL) insulin pen Discontinued 45 U SC AT BEDTIME 40.5 90 March 20, 2023 2:58pm March 21, 2023 1:20pm Start: 03-20-2023 End: 03-21-2023 Insulin Detemir U-100 (Levem ir Flexpen) 100 unit/mL (3 mL) insulin pen Discontinued 45 UNIT SC AT BEDTIME 40.5 90 March 20, 2023 2:58pm March 21, 2023 1:20pm Start: 03-20-2023 End: 03-21-2023 Insulin Detemir U-100 (Levem ir Flexpen) 100 unit/mL (3 mL) insulin pen Discontinued 45 UNIT SC AT BEDTIME 40.5 90 March 20, 2023 1:58pm March 21, 2023 12:20pm Start: 02-27-2023 End: 03-20-2023 Insulin Detemir U-100 (Levem ir Flexpen) 100 unit/mL (3 mL) insulin pen Discontinued 40 U SC AT BEDTIME 36 90 February 27, 2023 1:00am March 20, 2023 2:59pm Start: 02-27-2023 End: 03-20-2023 Insulin Detemir U-100 (Levem ir Flexpen) 100 unit/mL (3 mL) insulin pen Discontinued 40 UNIT SC AT BEDTIME 36 90 February 27, 2023 1:00am March 20, 2023 2:59pm Start: 02-27-2023 End: 03-20-2023 Insulin Detemir U-100 (Levem ir Flexpen) 100 unit/mL (3 mL) insulin pen Discontinued 40 UNIT SC AT BEDTIME 36 90 February 27, 2023 12:00am March 20, 2023 1:59pm Start: 02-27-2023 Insulin Detemi r U-100 (Levemir Flexpen) 100 unit/mL (3 mL) insulin pen Active 40 UNIT SC AT BEDTIME 36 90 February 27, 2023 12:00am Insulin Glargine U-300 Conc (Toujeo Max U-300 Solostar) 300 unit/mL (3 mL) insulin pen (3 sources) Start: 11-06-2023 End: 03-05-2024 Insulin Glargine U-300 Conc (Toujeo Max U-300 Solostar) 300 unit/mL (3 mL) insulin pen Discontinued 45 U SC AT BEDTIME November 06, 2023 12:00am March 05, 2024 2:21pm Insulin Glargine U-300 Conc (Toujeo Solostar U-300 Insulin) 300 unit/mL (1.5 mL) insulin pen (8 sources) Start: 10-29-2023 End: 11-06-2023 Insulin Glargine U-300 Conc (Toujeo Solostar U-300 Insulin) 300 unit/mL (1.5 mL) insulin pen Discontinued 45 U SC DAILY 13.5 90 October 29, 2023 12:32pm November 06, 2023 11:07am Start: 03-21-2023 End: 10-29-2023 Insulin Glargine U-300 Conc (Toujeo Solostar U-300 Insulin) 300 unit/mL (1.5 mL) insulin pen Discontinued 45 U SC DAILY 13.5 90 March 21, 2023 1:00am October 29, 2023 12:32pm Start: 03-21-2023 Insulin Glargi ne U-300 Conc (Toujeo Solostar U-300 Insulin) 300 unit/mL (1.5 mL) insulin pen Active 45 UNIT SC DAILY 13.5 90 March 21, 2023 1:00am Start: 03-21-2023 Insulin Glargi ne U-300 Conc (Toujeo Solostar U-300 Insulin) 300 unit/mL (1.5 mL) insulin pen Active 45 UNIT SC DAILY 13.5 90 March 21, 2023 12:00am insulin regular (HUMULIN R;NOVOLIN R) 100 Units in sodium chloride 0.9 % 100 mL infusion (1 source) Start: 11-06-2018 End: 11-07-2018 take 1 [IU] intravenous route every hour 1 Units/hr (1 mL/hr), Intravenous, at 1 mL/hr, CONTINUOUS, Starting [facility] 11/06/18 at 1300 Target glucose 90-120mg/dl; if glucose <40 or >500 draw confirmation and send to lab; While on insulin drip follow hypoglycemic orders as outlined below. o Blood Glucose Initial Administration Rate/Additional IV Insulin Bolus protocol " > 90-120mg/dl - 1 unit/hr " 121-150mg/dl - 2 units/hr " 150-180mg/dl - 2.5 units/hr " 181- 240mg/dl - 3.5 units/hr + 4 unit bolus " 241-300mg/dl - 5 units/hr + 6 unit bolus " 301-360mg/dl - 6.5 units/hr + 8 unit bolus " > 360mg/dl - 8 units/hr + 10 unit bolus o Glucose by finger stick 30 minutes after infusion has started, then per Floor Blood Glucose guidelines below o When BGT is between 90-120mg/dl with < 15mg/dl change and insulin rate remains unchanged x 3 hours, then may test every 2 hours. o Adjust insulin infusion rate in response to blood glucose levels as follows: o < 60mg/dl: BGT check in 30 minutes: 1. Stop infusion. 2. Give 25ml dextrose 50% IVP, recheck BG in 30 mins " When BG is > 80 and < 120mg/dl, restart drip at 50% of the previous rate, recheck in 30 minutes. " If BG > 120, restart drip at 75% of the previous rate, recheck in 30 minutes o 60-69mg/dl: BGT check in 30 minutes: 1. Stop infusion. " If previous BG > 100mg/dl give 25ml dextrose 50% IVP, recheck BG in 30 minutes. " When BG > 80 and < 120mg/dl, restart drip at 50% of previous rate, recheck BG in 30 minutes. " If BG > 120mg/dl or more restart drip at 75% of the previous rate, recheck BG in 30 minutes. o 70-89mg/dl: BGT check every 1 hour. " Has BG dropped > 10mg/dl from the last BG? Yes: Decrease rate by 50% " Has BG dropped from the last BG < 10mg/dl or = to 10mg/dl? Yes: decrease the rate by 0.5units/hr. " If BG greater than or equal to the last test, maintain same rate. o 90-120mg/dl: BGT check in 1 hour. TITRATE DRIP RATE TO MAINTAIN THIS RANGE " Has BG increased > 10mg/dl from the last BG? Yes: increase rate by 0.5units/hr. " Has BG dropped from the last BG by more than 10mg/dl? Yes: decrease the rate by 0.5 units/hr: No: Same rate. o 121-150mg/dl: BGT check in 1 hour " Has BG dropped 20-50mg/dl from last BG? Yes: Same rate. " Has BG increased from last BG by > 20mg/dl? Yes: increase rate by 1.5 units/hr. " Has BG dropped by more than 50mg/dl? Yes: decrease rate by 50%. " Is BG within 20mg/dl of the last test? Yes: increase rate by 1 unit/hr. o 151-180mg/dl: BGT check every 1 hour " Has BG dropped > 30mg/dl? Yes: same rate " Has BG dropped from last BG by < 30 mg/dl OR is BG higher than the last test? Yes: increase rate by 1.5 units/hr. o 181-240mg/dl: BGT check in 1 hour " Is BG 50-100mg/dl lower from the last BG? Yes: continue at the same rate. " Is BG lower than the last BG by >100mg/dl? Yes: decrease rate by 25%. " Is BG lower than the last BG by < 50mg/dl OR higher than the last test? Yes: bolus with 4 units insulin IV and increase rate by 2 units/hr. " Note: If BG 181-240mg/dl and has not dropped after 3 consecutive increases in insulin, then bolus with 4 units and double the insulin rate. o > 240mg/dl: BGT check in 30 minutes " Has BG dropped > 100mg/dl from last BG? Yes: same rate " Is BG lower than the last test by < 100mg/dl OR higher than the last test? Yes: IV Bolus with regular insulin as per "IV infusion Bolus" dosage scale and double insulin drip rate. o > 300mg/dl: Continue to follow the appropriate interventions based on BGT and call the [facility]. o Maximum insulin infusion drip rate may not exceed 30 units/hr; Insulin drip may NOT be discontinued unless approved by [facility]. Discontinue all subcutaneous Insulin orders (if patient is on subcutaneous insulin). Post-op insulin, aspart protamine, human 70 unt/ml / insulin, aspart, human 30 unt/ml injectable suspension (4 sources) Insulin Analog Start: 04-11-2018 End: 11-04-2018 NOVOLOG MIX 70/30 (70-30) 100 UNIT/ML injection INJECT 22 UNITS TWICE DAILY (at BREAKFAST and dinner 3 04/11/2018 11/04/2018 Discontinued (Therapy completed) 3 ml insulin aspart, human 100 unt/ml pen injector (20 sources) Insulin Analog Start: 02-27-2023 End: 03-05-2024 Insulin Aspart U-100 (Novolog Flexpen U-100 Insulin) 100 unit/mL (3 mL) insulin pen Discontinued 10 U SC THREE TIMES A DAY 27 90 1 November 01, 2023 4:00pm March 05, 2024 2:27pm Start: 11-16-2021 End: 04-06-2022 Insulin Aspart U-100 100 uni t/mL (3 mL) insulin pen Discontinued 0 SC THREE TIMES A DAY 15 April 06, 2022 4:22pm April 06, 2022 4:26pm diabetes sliding scale subcutaneously three times a day; NOVOLOG Start: 11-16-2021 End: 04-06-2022 Insulin Aspart U-100 Discont inued 0 SC THREE TIMES A DAY April 06, 2022 4:22pm April 06, 2022 4:26pm sliding scale subcutaneously three times a day; NOVOLOG Start: 05-25-2020 End: 11-16-2021 Insulin Aspart U-100 100 uni t/mL (3 mL) insulin pen Discontinued 10 U SC THREE TIMES A DAY May 16, 2021 1:08pm November 16, 2021 1:05pm diabetes NOVOLOG Start: 11-20-2018 End: 06-09-2021 Insulin Aspart U-100 100 uni t/mL (3 mL) insulin pen Discontinued 9 U SC THREE TIMES A DAY December 11, 2018 9:57am May 25, 2020 2:30pm diabetes Start: 10-22-2018 End: 12-11-2018 Insulin Aspart U-100 100 UNI TS/ML insulin pen Discontinued 0 U SQ TWICE DAILY WITH MEALS October 22, 2018 12:00am December 11, 2018 10:01am diabetes End: 11-13-2018 Insulin Aspart (NOVOLOG FLEX PEN SC) Inject into the skin 4 times daily (before meals and nightly) SSI 0 11/13/2018 Discontinued (Stop Taking at Discharge) Insulin Aspart ( NOVOLOG FLEXPEN SC) Inject into the skin 4 times daily (before meals and nightly) SSI 0 Active 24 hr isosorbide mononitrate 30 mg extended release oral tablet (20 sources) Nitrate Vasodilator Start: 06-17-2021 take 60 mg by mouth once daily before breakfast 60 mg, Oral, DAILY BEFORE BREAKFAST, First dose on 06/17/21 at 0700, Until Discontinued Do not crush or chew. Start: 09-14-2020 End: 10-20-2021 take 1 tablet by mouth once daily, then take 1 tablet by mouth every twenty-four hours Isosorbide Mononitrate 30 mg tablet extended release 24 hr Discontinued 30 mg PO DAILY 90 3 August 23, 2021 4:20pm September 06, 2021 11:14am isosorbide monon itrate (IMDUR) 60 MG extended release tablet Take 30 mg by mouth every morning (before breakfast) 0 Active isosorbide monon itrate (IMDUR) 60 MG extended release tablet Take 80 mg by mouth every morning (before breakfast) 0 Active Lactobacillus Combination No.9 (Adult 50 Plus Probiotic) 4 billion cell capsule (18 sources) Start: 05-25-2020 End: 09-06-2021 take 4 capsules by mouth once daily Lactobacillus Combination No.9 (Adult 50 Plus Probiotic) 4 billion cell capsule Discontinued 4000 NMA PO DAILY May 25, 2020 12:00am September 06, 2021 10:32am supplement administer with a meal Start: 05-25-2020 End: 09-06-2021 take 4 capsules by mouth once daily Lactobacillus Combination No.9 (Adult 50 Plus Probiotic) 4 billion cell capsule Discontinued 4000 MMU CELLS PO DAILY May 24, 2020 11:00pm September 06, 2021 9:32am administer with a meal Start: 05-25-2020 End: 09-06-2021 take 4 capsules by mouth once daily Lactobacillus Combination No.9 (Adult 50 Plus Probiotic) 4 billion cell capsule Discontinued 4000 MMU CELLS PO DAILY May 25, 2020 12:00am September 06, 2021 10:32am administer with a meal levETIRAcetam 250 mg oral tablet (18 sources) Start: 12-07-2019 End: 12-07-2019 take 1 tablet by mouth twice daily Levetiracetam (Keppra) 250 mg tablet Discontinued 250 mg PO TWICE A DAY December 07, 2019 12:00am December 07, 2019 1:52pm levothyroxine sodium 0.1 mg oral tablet (20 sources) l-Thyroxi ne Start: 09-06-2021 End: 04-02-2023 take 1 tablet by mouth once daily Levothyroxine 100 mcg tablet Discontinued 100 ug PO DAILY 90 1 July 24, 2022 4:44pm July 26, 2022 5:17pm Start: 06-16-2021 take 1 tablet by antonietta th once daily levothyroxine (SYNTHROID) 112 MCG tablet Take 1 tablet by mouth daily 30 tablet 1 06/16/2021 Active losartan potassium 25 mg oral tablet (20 sources) Angiotensin 2 Receptor Daniela Start: 10-25-2018 End: 12-11-2018 take 1 tablet by mouth once daily Losartan 25 MG tablet Discontinued 25 mg PO DAILY 60 0 October 25, 2018 12:00am December 11, 2018 10:00am End: 06-09-2021 take 1 tablet by mouth once daily losartan (COZAAR) 100 MG tablet Take 100 mg by mouth daily 0 06/09/2021 Discontinued (LIST CLEANUP) Magnesium Glycinate-Mag Oxide (13 sources) Start: 04-04-2021 End: 10-20-2021 take 100 mg by mouth at bedtime Magnesium Glycinate-Mag Oxide Discontinued 100 MG PO AT BEDTIME April 04, 2021 12:00am October 20, 2021 1:19pm Start: 04-04-2021 End: 10-20-2021 take 100 mg by mouth at bedtime Magnesium Glycinate-Ma g Oxide Discontinued 100 MG PO AT BEDTIME April 04, 2021 1:00am October 20, 2021 2:19pm Start: 04-04-2021 take 100 mg by mouth at bedtim e Magnesium Glycinate-Mag Oxide Active 100 MG PO AT BEDTIME April 04, 2021 1:00am Magnesium Glycinate-Mag Oxide 120 mg magnesium capsule (5 sources) Start: 04-04-2021 End: 10-20-2021 Magnesium Glycinate-Mag Oxide 120 mg magnesium capsule Discontinued 100 mg PO AT BEDTIME April 04, 2021 1:00am October 20, 2021 2:19pm magnesium oxide 500 mg oral capsule (17 sources) Start: 10-20-2021 End: 11-07-2022 take 1 capsule by mouth once daily Magnesium Oxide 500 mg capsule Discontinued 500 mg PO DAILY October 20, 2021 12:00am November 07, 2022 1:58pm methIMAzole 5 mg oral tablet (18 sources) Thyroid Hormone Synthesis Inhibitor Start: 06-13-2020 End: 09-06-2021 take 1 tablet by mouth twice daily Methimazole 5 MG tablet Discontinued 5 mg PO TWICE A DAY June 13, 2020 12:00am September 06, 2021 10:33am Graves disease 5 ml metoprolol tartrate 1 mg/ml injection (3 sources) beta-Adrenergic Daniela Start: 11-09-2018 End: 11-09-2018 metoprolol (LOPRESSOR) injection 5 mg Start: 11-08-2018 End: 11-08-2018 metoprolol (LOPRESSOR) 5 MG/ 5ML injection Start: 11-08-2018 End: 11-13-2018 metoprolol (LOPRESSOR) injec tion 5 mg mupirocin 0.02 mg/mg topical ointment (5 sources) RNA Synthetase Inhibitor Antibacterial Start: 11-06-2018 End: 11-09-2018 Nasal, 2 TIMES DAILY, First dose on Sharlene 11/06/18 at 1300, For 4 days, Post-op Start: 11-02-2018 End: 11-13-2018 mupirocin (BACTROBAN) 2 % oi ntment Apply liberal amount of ointment on end of q tip and swab to each nostril the night before surgery 22 g 0 11/02/2018 11/13/2018 Discontinued (Stop Taking at Discharge) nitroglycerin 0.4 mg sublingual tablet (20 sources) Nitrate Vasodilator Start: 03-27-2016 End: 12-11-2018 Nitroglycerin 0.4 MG tablet Discontinued 0.4 mg SL Q5M as needed for Angina pain 10 0 December 25, 2017 12:00am December 11, 2018 10:01am pantoprazole 20 mg delayed release oral tablet (2 sources) Proton Pump Inhibitor Start: 06-16-2021 take 20 mg by mouth once daily before breakfast 20 mg, Oral, DAILY BEFORE BREAKFAST, First dose on Sat06/16/21 at 2015, Until Discontinued Do not crush or break. Substituted for Lansoprazole (PREVACID). Start: 11-08-2018 pantoprazole ( PROTONIX) tablet 40 mg 10 ml sodium bicarbonate 84 mg/ml injection (2 sources) Start: 11-06-2018 End: 11-06-2018 sodium bicarbonate 8.4 % injection 50 mEq Start: 11-06-2018 End: 11-06-2018 sodium bicarbonate 8.4 % inj ection 5 ml sodium chloride 9 mg/ml injection (11 sources) Start: 06-16-2021 take 1 dose intravenously twice daily 5-40 mL, IntraVENous, EVERY 12 HOURS SCHEDULED (2 times per day), First dose on Sat06/16/21 at 2100, Until Discontinued For Line Patency: Peripheral IV = 5 mL; Midline or Central Line = 10 mL/lumen. If following IV push medication, administer flush at same rate as the IV push. Flush volume is determined by type of infusion therapy being given. For non-viscous solutions use: Peripheral IV = 5 mL Midline or Central Line = 10 mL/lumen For viscous solutions (i.e. blood components, parenteral nutrition, contrast media, or after obtaining blood sample) use: Peripheral IV = 10 mL Midline or Central Line = 20 mL/lumen Post-op Start: 06-16-2021 IntraVENous, a t 5-250 mL/hr, PRN, if patient receiving piggyback infusions and maintenance fluids are not ordered OR KVO fluids to protect IV site / prevent frequent line interruptions/ long duration, Starting on Sat06/16/21 at 1950 For piggyback infusion, administer at same rate as piggyback for a total of 25 mL. Enter 25 mL into dose field and piggyback rate into rate field of order. If piggyback is infusing at a rate less than 100 mL/hr, enter 25 mL into dose field and 100 mL/hr into rate field of order. For KVO fluids, enter rate of 20 mL/hr or less into rate field of order. Post-op Start: 06-16-2021 take 5-40 mL intrave nously once as needed 5-40 mL, IntraVENous, PRN, Starting on Sat06/16/21 at 1950, Until Discontinued, Line Care, After every IV line use For Line Patency: Peripheral IV = 5 mL; Midline or Central Line = 10 mL/lumen. If following IV push medication, administer flush at same rate as the IV push. Flush volume is determined by type of infusion therapy being given. For non-viscous solutions use: Peripheral IV = 5 mL Midline or Central Line = 10 mL/lumen For viscous solutions (i.e. blood components, parenteral nutrition, contrast media, or after obtaining blood sample) use: Peripheral IV = 10 mL Midline or Central Line = 20 mL/lumen Post-op Start: 08-14-2019 10 mL, Intrave nous, EVERY 12 HOURS SCHEDULED (2 times per day), First dose on Sat08/14/19 at 0900 Start: 08-14-2019 Intravenous, a t 125 mL/hr, CONTINUOUS, Starting Sat08/14/19 at 0000 Start: 08-13-2019 End: 08-16-2019 take 10 mL intravenous route once as needed 10 mL, Intravenous, PRN, Line Care, After every IV line use, Starting Sharlene 08/13/19 at 2338 Start: 11-06-2018 10 mL, Intrave nous, EVERY 12 HOURS SCHEDULED (2 times per day), First dose on Sat11/06/18 at 2100, Post-op Start: 11-06-2018 take 10 mL intravenous route o nce 10 mL, Intravenous, PRN, Line Care, Starting Sat11/06/18 at 1240 After every IV line use Post-op Start: 11-06-2018 End: 11-08-2018 Intravenous, at 20 mL/hr, CONTINUOUS, Starting Sharlene 11/06/18 at 1300 20 ml/hr to SP(introducer) and WT on [place] Alex Catheter; once [place] discontinued run at 20 ml/hr through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 speech difficulty. A subsequent head CT in May 2020 revealed postsurgical changes; there was no evidence of subdural hematoma recurrence. Presently, he is not on antiplatelet or anticoagulation therapy. He does not have any history of bleeding disorder or easy bruising. He was seen by a shipwright apprentice, who found no clinical or lab evidence to suggest a bleeding diathesis, and no further work-up was felt to be necessary. In February 2021, he reported new onset of headache. These headaches were pressure or throbbing headaches in the bilateral temporal regions. The pain occurs bilaterally at its onset. These headaches, at one point, occurred daily and lasted up to several hours each then began to subside beginning in March 2021. He has not had any headaches since his visit in February 2023. He had denied any notable vision changes, head injuries, gait imbalance or weakness associated with his headaches that occurred since March 2021. His brain CT from 04/14/21 revealed mild cerebral atrophy and microvascular disease changes, with no intracranial hemorrhage or acute ischemic infarction. A CBC and PT/INR revealed low platelets (138 K/mm3). He underwent thyroidectomy in 2021 for treatment of thyroid cancer. He takes levothyroxine. He has bilateral calf cramping and has experienced bilateral calf claudication when he ambulates distances of about 1/4 mile. He has low back pain. Acetaminophen is of benefit for his back pain. He has cramping pains in the calves at night; magnesium oxide 500 mg nightly was not of benefit. Aquatic therapy in 2022 was of some benefit for his low back pain. A lumbar radiofrequency ablation in 2021 was of modest benefit. Tizanidine is of benefit for his calf cramping. Biofreeze was of benefit. He has tolerated tizanidine well. He is seeing a heel painter, Dr. Hernández, regarding his low back pain and has received lumbar injections and these have been of moderate benefit. He also had a lumbar radi ofrequency ablation earlier in 2024 and this was of benefit. Gabapentin 100 mg daily was not of benefit. He is not experiencing radicular pain in the lower extremities. He has moderate bilateral lower extremity peripheral arterial disease. He was seen at a vascular specialist office and due to his inability to take antiplatelet therapy, further intervention and evaluation were not pursued; treatment with cilostazol was not an option. He has performed some walking exercise. Physical Exam: Neuro: The patient is awake and alert and responds appropriately; speech is fluent; gait is slightly slow Neck: No bruits Heart: Regular rate and rhythm Supplemental Info Head CTA 05/05/18 IMPRESSION: Moderate size right acute subdural hematoma overlying the right frontal, parietal and occipital lobes wit (more content not included)... Normal [facility] Anion gap in Serum or Plasma Ordered By: Esteban Yeboah on 11-17-2024 Anion gap [Moles/Vol] 12 mmol/L 07-09 [facility] BUN/creatinine ratioOrdered By: Esteban Yeboah on 11-17-2024 Urea nitrogen/Creatinine [Mass ratio] 14.0 mg/mg 12-14 [facility] Basic Metabolic Profile (BMP )on 11-17-2024 BUN/CRE 14.0 RATIO Normal 12-14 [facility] Comment on above: Performed By: #### L 500.2500 #### [facility] [address] [place], [address] Calcium [Mass/Vol] 9.3 mg/dL Normal 7.6-11.0 [facility] Comment on above: Performed By: #### L 500.2500 #### [facility] [address] [place], [address] Chloride [Moles/Vol] 105 mmol/L Normal 98-108 [facility] Comment on above: Performed By: #### L 500.2500 #### [facility] [address] [place], [address] CO2 [Moles/Vol] 21.2 mmol/L Normal 21.0-32.0 [facility] Comment on above: Performed By: #### L 500.2500 #### [facility] [address] [place], [address] Creatinine [Mass/Vol] 1.25 mg/dL High 0.70-1.20 [facility] Comment on above: Performed By: #### L 500.2500 #### [facility] [address] [place], [address] GAP 12 Normal 07-09 [facility] Comment on above: Performed By: #### L 500.2500 #### [facility] [address] [place], [address] GFR/1.73 sq M.predicted among non-blacks MDRD (S/P/Bld) [Vol rate/Area] 62 mL/min/{1.73_m2} Normal >60 [facility] Comment on above: Result Comment: mL/m in/1.73m2 CKD-EPI Creatinine Equation (2020) Performed By: #### L 500.2500 #### [facility] [address] [place], [address] Glucose [Mass/Vol] 169 mg/dL High 70-99 [facility] Comment on above: Performed By: #### L 500.2500 #### [facility] [address] [place], [address] Potassium [Moles/Vol] 4.4 mmol/L Normal 3.3-5.1 [facility] Comment on above: Result Comment: Hemo lysis present, Results??could be affected. ?? Performed By: #### L 500.2500 #### [facility] [address] [place], [address] Sodium [Moles/Vol] 138 mmol/L Normal 133-145 [facility] Comment on above: Performed By: #### L 500.2500 #### [facility] [address] [place], [address] Urea nitrogen [Mass/Vol] 18 mg/dL Normal 4-19 [facility] Comment on above: Performed By: #### L 500.2500 #### [facility] [address] [place], [address] Carbon dioxide, total [Moles /volume] in Central venous bloodOrdered By: Esteban Yeboah on 11-17-2024 CO2 [Moles/Vol] 21.2 mmol/L 21.0-32.0 [facility] Chloride assayOrdered By: Sang Yeboah on 11-17-2024 Chloride [Moles/Vol] 105 mmol/L 98-108 [facility] Glomerular filtration rate ( GFR) estimation/1.73 sq m using serum, plasma, or whole bOrdered By: Esteban Yeboah on 11-17-2024 GFR/1.73 sq M.predicted among non-blacks MDRD (S/P/Bld) [Vol rate/Area] 62 mL/min/{1.73_m2} >60 [facility] Comment on above: mL/min/1.73m2 CKD-EP I Creatinine Equation (2020) Potassium measurement (mass/ volume)Ordered By: Esteban Yeboah on 11-17-2024 Potassium (Unsp spec) [Mass/Vol] 4.4 mmol/L 3.3-5.1 [facility] Comment on above: Hemolysis present, R esults could be affected. Serum creatinine measurement (mass/volume)Ordered By: Esteban Yeboah on 11-17-2024 Creatinine [Mass/Vol] 1.25 mg/dL High 0.70-1.20 [facility] Serum glucose measurement (m ass/volume)Ordered By: Esteban eYboah on 11-17-2024 Glucose [Mass/Vol] 169 mg/dL High 70-99 [facility] Serum or plasma calcium radha urement (mass/volume)Ordered By: Esteban Yeboah on 11-17-2024 Calcium [Mass/Vol] 9.3 mg/dL 7.6-11.0 [facility] Serum or plasma urea nitroge n measurement (mass/volume)Ordered By: Esteban Yeboah on 11-17-2024 Urea nitrogen [Mass/Vol] 18 mg/dL 4-19 [facility] Sodium levelOrdered By: Gerber Yeboah on 11-17-2024 Sodium [Moles/Vol] 138 mmol/L 133-145 [facility] Cardiology Visit Reporton Cardiology Visit Report [facility] [address] [place] [address]. [address] [place] [address] OFFICE VISIT Date of Service: 10/28/24 MR#: [id number] Acct: [id number] Name: DOMINGA LARKIN Rep #: [id number] : 1950 Provider: Dr. Esteban Yeboah MD Age/Sex: 73/M Location: [facility] [place] Status: Signed HPI HPI History of Present Illness Details: This gentleman with history of coronary artery disease status post CABG, ischemic cardiomyopathy, hypertension, dyslipidemia and diabetes mellitus is here for follow-up visit. Denies any complaints today. No chest pains. No shortness of breath. No orthopnea or PND. Occasional ankle edema. Intake Vital Signs 09/09/24 14:52 10/28/24 14:09 Height 5 ft 8 in 5 ft 8 in Weight: 231 lb 236 lb BMI 35.1 35.9 BP 124/78 H 141/83 H Blood Pressure Location Lt brachial Lt brachial Position Sitting Sitting Respiration 16 20 H Pulse 66 57 L Pulse Source Monitor Monitor Temp 96.7 F L Pulse Oximetry (%) 94 Oxygen Delivery Method room air Intake Visit Reasons: 6 M FU Steam Cleaner Required: No Is patient in pain?: No Allergies lisinopril Adverse Reaction (Intermediate, Verified 10/28/24 14:09) COUGH Medications ???Medication ???Instructions ???Recorded ???Confirmed ???Type lansoprazole 15 mg delayed 15 mg PO DAILY reflux 12/23/17 History release,disintegrating tablet cholecalciferol (vitamin D3) 50 2,000 unit PO DAILY vitamin 10/07/24 History mcg (2,000 unit) capsule (Vitamin D3) Lactobacillus acidophilus 100 mg PO DAILY 10/20/21 10/07/24 History (Acidophilus capsule) psyllium husk 0.4 gram capsule 0.4 g PO DAILY 10/20/21 10/07/24 H istory (Daily Fiber) Handicap Placard #1 ea 09/05/22 10/07/24 Rx levothyroxine 100 mcg tablet 100 mcg PO DAILY #90 tabs 04/02/23 10/07/24 Rx blood-glucose meter #1 ea 04/03/23 10/07/24 Rx lancets 30 gauge (Unilet Lancets) #100 ea 05/29/23 10/07/24 Rx blood sugar diagnostic (True #100 ea 07/17/23 10/07/24 Rx Metrix Glucose Test Strip) pen needle, diabetic 32 gauge x #200 ea 07/17/23 10/07/24 Rx 1/4" (Unifine Pentips) amlodipine 5 mg tablet 5 mg PO DAILY blood pressure #90 1 03/14/23 10/07/24 Rx tabs blood pressure monitor #1 ea 02/03/24 10/07/24 Rx carvedilol 12.5 mg tablet 12.5 mg PO BID #180 tabs 02/17/24 10/07/24 Rx tizanidine 4 mg tablet 12 mg (3 x 4 mg) PO QHS muscle 08/1910/07/24 Rx spasticity/cramps #90 tabs sacubitril 49 mg-valsartan 51 mg 1 tab PO BID #180 tabs 05/13/24 Rx tablet (Entresto) insulin lispro 100 unit/mL 13 unit (0.13 mL) subcut TID 3 07/1910/07/24 Rx subcutaneous pen (Humalog KwikPen months #35.1 mL (U-100) Insulin) flash glucose scanning reader #1 ea 09/09/24 10/07/24 Rx (FreeStyle Ynes 2 [place]) flash glucose sensor (FreeStyle #1 ea 09/09/24 10/07/24 Rx Ynes 2 Sensor kit) Jardiance 25 mg tablet 25 mg PO DAILY diabetes #90 tabs 0 10/01/24 10/07/24 Rx (empagliflozin) atorvastatin 80 mg tablet See Rx Instructions .Route 5 10/28/24 Rx .COMPLEX #90 tabs insulin glargine 100 unit/mL (3 60 unit (0.6 mL) subcut DAILY 3 10/28/24 Rx mL) subcutaneous pen (Lantus months #54 mL Solostar U-100 Insulin) Ejection fraction %: 35 Have you fallen in the past year?: No PFSH Medical History Sweats, sweating, excessive Upper respiratory infection CAD (coronary artery disease) Bilateral knee pain Hypothyroidism Insulin dependent diabetes mellitus Health care maintenance BPH (benign prostatic hyperplasia) Wears glasses Hx of thyroid disease Hx of kidney disease Hx of irritable bowel syndrome History of high cholesterol Hx of essential hypertension Hx of hearing loss Hx of diabetes mellitus History of cataract History of back problems Hx of chronic arthritis Thyroid cancer Headache History of subdural hematoma Cardiomyopathy Abnormal findings on diagnostic imaging of heart and coronary circulation Postoperative atrial fibrillation Pure hypercholesterolemia Bronchitis Type 2 diabetes mellitus Balance problem Stroke Diarrhea Chest pain headaches Fatigue SOB (shortness of breath) History of hypertension Essential hypertension Atrial flutter Bradycardia Subdural hematoma (05/05/18) 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/23/17) History of acute inferior wall [place] (12/23/17) GERD (gastroesophageal reflux disease) Diabetes mellitus, type II Surgical History Hx of tonsillectomy Hx of craniotomy History of thyroidectomy History of coronary artery bypass graft ( 11/23/18) History of left heart ca (more content not included)... Normal [facility] Absolute lymphocyte countOrd ered By: Shan Nazario on 09-11-2024 Lymphocytes Auto (Unsp spec) [#/Vol] 1.31 10*3/uL 0.83-4.51 [facility] Absolute neutrophil countOrd ered By: Shan Nazario on 09-11-2024 Neutrophils (Bld) [#/Vol] 4.3 10*3/uL 2.0-7.7 [facility] Anion gap in Serum or Plasma Ordered By: Angchinoisidoro Nazario on 09-11-2024 Anion gap [Moles/Vol] 12 mmol/L 5-15 [facility] Automated lymphocyte count a s percentage of total leukocytesOrdered By: Shan Nazario on 09-11-2024 Lymphocytes/100 WBC Auto (Unsp spec) 20.9 % 19-41 [facility] BUN/creatinine ratioOrdered By: Shan Nazario on 09-11-2024 Urea nitrogen/Creatinine [Mass ratio] 10.8 mg/mg 10-20 [facility] Basophil percentageOrdered B y: Shan Nazario on 09-11-2024 Basophils/100 WBC (Bld) 0.6 % 0-1 [facility] Bilirubin, totalOrdered By: Shan Nazario on 09-11-2024 Bilirubin [Mass/Vol] 0.69 mg/dL 0.00-1.30 [facility] CBC W/Diff, Automatedon 08-25 Absolute Lymph 1.31 X10 3/uL Normal 0.83-4.51 [facility] Comment on above: Performed By: #### L 500.4100, L500.4050, L501.9520, L502.0250, L100.0100, L501.9910 #### [facility] [address] [place], [address] Absolute Neut 4.3 X10 3/uL Normal 2.0-7.7 [facility] Comment on above: Performed By: #### L 500.4100, L500.4050, L501.9520, L502.0250, L100.0100, L501.9910 #### [facility] [address] [place], [address] Basophils/100 WBC (Bld) 0.6 % Normal 0-1 [facility] Comment on above: Performed By: #### L 500.4100, L500.4050, L501.9520, L502.0250, L100.0100, L501.9910 #### [facility] [address] [place], [address] Eosinophils/100 WBC (Bld) 1.6 % Normal 0-5 [facility] Comment on above: Performed By: #### L 500.4100, L500.4050, L501.9520, L502.0250, L100.0100, L501.9910 #### [facility] [address] [place], [address] Erythrocyte distribution width (RBC) [Ratio] 13.5 % Normal 11.6-14.6 [facility] Comment on above: Performed By: #### L 500.4100, L500.4050, L501.9520, L502.0250, L100.0100, L501.9910 #### [facility] [address] [place], [address] Hematocrit (Bld) [Volume fraction] 48.1 % Normal 40-54 [facility] Comment on above: Performed By: #### L 500.4100, L500.4050, L501.9520, L502.0250, L100.0100, L501.9910 #### [facility] [address] [place], [address] Hemoglobin (Bld) [Mass/Vol] 16.1 g/dL Normal 13.0-16.5 [facility] Comment on above: Performed By: #### L 500.4100, L500.4050, L501.9520, L502.0250, L100.0100, L501.9910 #### [facility] [address] [place], [address] IG% 1.100 High 0.0-0.9 [facility] Comment on above: Result Comment: IG% - Immature Granulocytes (promyelocytes, myelocytes and metamyelocytes) > 1% indicates that a LEFT SHIFT is Present. Performed By: #### L 500.4100, L500.4050, L501.9520, L502.0250, L100.0100, L501.9910 #### [facility] [address] [place], [address] Lymphocytes/100 WBC (Bld) 20.9 % Normal 19-41 [facility] Comment on above: Performed By: #### L 500.4100, L500.4050, L501.9520, L502.0250, L100.0100, L501.9910 #### [facility] [address] [place], [address] MCH (RBC) [Entitic mass] 31.4 pg Normal 27.0-32.0 [facility] Comment on above: Performed By: #### L 500.4100, L500.4050, L501.9520, L502.0250, L100.0100, L501.9910 #### [facility] [address] [place], [address] MCHC (RBC) [Mass/Vol] 33.5 g/dL Normal 32-36 [facility] Comment on above: Performed By: #### L 500.4100, L500.4050, L501.9520, L502.0250, L100.0100, L501.9910 #### [facility] [address] [place], [address] MCV (RBC) [Entitic vol] 93.8 fL Normal 80-94 [facility] Comment on above: Performed By: #### L 500.4100, L500.4050, L501.9520, L502.0250, L100.0100, L501.9910 #### [facility] [address] [place], [address] Monocytes/100 WBC (Bld) 7.3 % Normal 0-10 [facility] Comment on above: Performed By: #### L 500.4100, L500.4050, L501.9520, L502.0250, L100.0100, L501.9910 #### [facility] [address] [place], [address] Neutrophils/100 WBC (Bld) 68.5 % Normal 47-70 [facility] Comment on above: Performed By: #### L 500.4100, L500.4050, L501.9520, L502.0250, L100.0100, L501.9910 #### [facility] [address] [place], [address] Nucleated RBC (Bld) [#/Vol] 0 10*3/uL Normal 0-5 [facility] Comment on above: Performed By: #### L 500.4100, L500.4050, L501.9520, L502.0250, L100.0100, L501.9910 #### [facility] [address] [place], [address] Platelet mean volume (Bld) [Entitic vol] 10.1 fL Normal 6.2-12.0 [facility] Comment on above: Performed By: #### L 500.4100, L500.4050, L501.9520, L502.0250, L100.0100, L501.9910 #### [facility] [address] [place], [address] Platelets (Bld) [#/Vol] 175 10*3/uL Normal 150-450 [facility] Comment on above: Performed By: #### L 500.4100, L500.4050, L501.9520, L502.0250, L100.0100, L501.9910 #### [facility] [address] [place], [address] RBC (Bld) [#/Vol] 5.13 10*6/uL Normal 4.6-6.2 [facility] Comment on above: Performed By: #### L 500.4100, L500.4050, L501.9520, L502.0250, L100.0100, L501.9910 #### [facility] [address] [place], [address] RDW SD 47.1 fl High 35.1-43.9 [facility] Comment on above: Performed By: #### L 500.4100, L500.4050, L501.9520, L502.0250, L100.0100, L501.9910 #### [facility] [address] [place], [address] WBC (Bld) [#/Vol] 6.3 10*3/uL Normal 4.4-11.0 [facility] Comment on above: Performed By: #### L 500.4100, L500.4050, L501.9520, L502.0250, L100.0100, L501.9910 #### [facility] [address] [place], [address] Calculated very low density lipoprotein (VLDL) cholesterol measurementOrdered By: Shan Nazario on 09-11-2024 Calculated very low density lipoprotein (VLDL) cholesterol measurement 48 mg/dL High 5-40 [facility] Carbon dioxide, total [Moles /volume] in Central venous bloodOrdered By: Shan Nazario on 09-11-2024 CO2 [Moles/Vol] 23.5 mmol/L 21.0-32.0 [facility] Chloride assayOrdered By: Luis Angel alfredoisidoro Bateskyrael on 09-11-2024 Chloride [Moles/Vol] 105 mmol/L 98-108 [facility] Comprehensive Metabolic Prof ilon 09-11-2024 Albumin [Mass/Vol] 4.2 g/dL Normal 3.4-4.8 [facility] Comment on above: Performed By: #### L 500.4100, L500.4050, L501.9520, L502.0250, L100.0100, L501.9910 #### [facility] [address] [place], [address] Albumin/Globulin [Mass ratio] 1.7 {ratio} Normal 0.9-2.4 [facility] Comment on above: Performed By: #### L 500.4100, L500.4050, L501.9520, L502.0250, L100.0100, L501.9910 #### [facility] [address] [place], [address] ALK PHOS 80 U/L Normal 40-129 [facility] Comment on above: Performed By: #### L 500.4100, L500.4050, L501.9520, L502.0250, L100.0100, L501.9910 #### [facility] [address] [place], [address] ALT [Catalytic activity/Vol] 18 U/L Normal <=46 [facility] Comment on above: Performed By: #### L 500.4100, L500.4050, L501.9520, L502.0250, L100.0100, L501.9910 #### [facility] [address] [place], [address] AST [Catalytic activity/Vol] 25 U/L Normal <=37 [facility] Comment on above: Performed By: #### L 500.4100, L500.4050, L501.9520, L502.0250, L100.0100, L501.9910 #### [facility] [address] [place], [address] Bilirubin [Mass/Vol] 0.69 mg/dL Normal 0.00-1.30 [facility] Comment on above: Performed By: #### L 500.4100, L500.4050, L501.9520, L502.0250, L100.0100, L501.9910 #### [facility] [address] [place], [address] BUN/CRE 10.8 RATIO Normal 10-20 [facility] Comment on above: Performed By: #### L 500.4100, L500.4050, L501.9520, L502.0250, L100.0100, L501.9910 #### [facility] [address] [place], [address] Calcium [Mass/Vol] 9.4 mg/dL Normal 7.6-11.0 [facility] Comment on above: Performed By: #### L 500.4100, L500.4050, L501.9520, L502.0250, L100.0100, L501.9910 #### [facility] [address] [place], [address] Chloride [Moles/Vol] 105 mmol/L Normal 98-108 [facility] Comment on above: Performed By: #### L 500.4100, L500.4050, L501.9520, L502.0250, L100.0100, L501.9910 #### [facility] [address] [place], [address] CO2 [Moles/Vol] 23.5 mmol/L Normal 21.0-32.0 [facility] Comment on above: Performed By: #### L 500.4100, L500.4050, L501.9520, L502.0250, L100.0100, L501.9910 #### [facility] [address] [place], [address] Creatinine [Mass/Vol] 1.17 mg/dL Normal 0.70-1.20 [facility] Comment on above: Performed By: #### L 500.4100, L500.4050, L501.9520, L502.0250, L100.0100, L501.9910 #### [facility] [address] [place], [address] GAP 12 Normal 5-15 [facility] Comment on above: Performed By: #### L 500.4100, L500.4050, L501.9520, L502.0250, L100.0100, L501.9910 #### [facility] [address] [place], [address] GFR/1.73 sq M.predicted among non-blacks MDRD (S/P/Bld) [Vol rate/Area] 67 mL/min/{1.73_m2} Normal >60 [facility] Comment on above: Result Comment: mL/m in/1.73m2 CKD-EPI Creatinine Equation (2020) Performed By: #### L 500.4100, L500.4050, L501.9520, L502.0250, L100.0100, L501.9910 #### [facility] [address] [place], [address] Globulin (S) [Mass/Vol] 2.5 g/dL Normal 2.2-4.2 [facility] Comment on above: Performed By: #### L 500.4100, L500.4050, L501.9520, L502.0250, L100.0100, L501.9910 #### [facility] [address] [place], [address] Glucose [Mass/Vol] 121 mg/dL High 70-99 [facility] Comment on above: Performed By: #### L 500.4100, L500.4050, L501.9520, L502.0250, L100.0100, L501.9910 #### [facility] [address] [place], [address] Potassium [Moles/Vol] 4.4 mmol/L Normal 3.3-5.1 [facility] Comment on above: Performed By: #### L 500.4100, L500.4050, L501.9520, L502.0250, L100.0100, L501.9910 #### [facility] [address] [place], [address] Sodium [Moles/Vol] 140 mmol/L Normal 133-145 [facility] Comment on above: Performed By: #### L 500.4100, L500.4050, L501.9520, L502.0250, L100.0100, L501.9910 #### [facility] [address] [place], [address] T PROT 6.7 g/dL Normal 5.9-8.4 [facility] Comment on above: Performed By: #### L 500.4100, L500.4050, L501.9520, L502.0250, L100.0100, L501.9910 #### [facility] [address] [place], [address] Urea nitrogen [Mass/Vol] 13 mg/dL Normal 4-19 [facility] Comment on above: Performed By: #### L 500.4100, L500.4050, L501.9520, L502.0250, L100.0100, L501.9910 #### [facility] [address] [place], [address] Eosinophil percentageOrdered By: Shan Nazario on 09-11-2024 Eosinophils/100 WBC (Bld) 1.6 % 0-5 [facility] Erythrocyte distribution wid th ratioOrdered By: Angchinoisidoro Nazario on 09-11-2024 Erythrocyte distribution width (RBC) [Ratio] 13.5 % 11.6-14.6 [facility] Erythrocyte distribution wid th standard deviationOrdered By: Angchinoisidoro Nazario on 09-11-2024 Erythrocyte distribution width (RBC) [Ratio] 47.1 fl High 35.1-43.9 [facility] Glomerular filtration rate ( GFR) estimation/1.73 sq m using serum, plasma, or whole bOrdered By: Shan Nazario on 09-11-2024 GFR/1.73 sq M.predicted among non-blacks MDRD (S/P/Bld) [Vol rate/Area] 67 mL/min/{1.73_m2} >60 [facility] Comment on above: mL/min/1.73m2 CKD-EP I Creatinine Equation (2020) Hematocrit Auto (Bld) [Volum e fraction]Ordered By: Shan Nazario on 09-11-2024 Hematocrit (Bld) [Volume fraction] 48.1 % 40-54 [facility] Hemoglobin measurementOrdere d By: Shan Nazario on 09-11-2024 Hemoglobin (Bld) [Mass/Vol] 16.1 g/dL 13.0-16.5 [facility] Immature granulocytes/100 WB C Auto (Bld)Ordered By: Shan Nazario on 09-11-2024 Immature granulocytes/100 WBC (Bld) 1.100 % High 0.0-0.9 [facility] Comment on above: IG% - Immature Granu locytes (promyelocytes, myelocytes and metamyelocytes) > 1% indicates that a LEFT SHIFT is Present. LDL calc ser/plasOrdered By: Shan Nazario on 09-11-2024 Cholesterol in LDL [Mass/Vol] 91 mg/dL [facility] Comment on above: Vcgslfojye=722-634 m g/dL & Higher Cysu=766 mg/dL or greater Laboratory - Chemistry and C hemistry - challengeOrdered By: Shan Nazario on 09-11-2024 AST [Catalytic activity/Vol] 25 U/L <38 [facility] Lipid Profileon 09-11-2024 CHOL:HDL 4.19 Normal [facility] Comment on above: Performed By: #### L 500.4100, L500.4050, L501.9520, L502.0250, L100.0100, L501.9910 #### [facility] [address] [facility] [place], [address] Cholesterol [Mass/Vol] 183 mg/dL Normal <=200 [facility] Comment on above: Result Comment: Chol esterol level, Desirable <200 mg/dL Borderline high cholesterol 200-239 mg/dL High cholesterol >=240 mg/dL Recommendations of the NCEP Adult Treatment Panel for the following risk-cutoff thresholds for the [place] population. Performed By: #### L 500.4100, L500.4050, L501.9520, L502.0250, L100.0100, L501.9910 #### [facility] [address] [place], [address] Cholesterol in HDL [Mass/Vol] 44 mg/dL Normal [facility] Comment on above: Result Comment: Kelli onal Cholesterol Education Program (NCEP) guidelines: <40 mg/dL: Low HDL-cholesterol (major risk factor for CHD) >= 60 mg/dL: High HDL-cholesterol (negative risk factor for CHD) HDL-cholesterol is affected by a number of factors, e.g. smoking, exercise, hormones, sex and age. Performed By: #### L 500.4100, L500.4050, L501.9520, L502.0250, L100.0100, L501.9910 #### [facility] [address] [place], [address] Cholesterol in LDL [Mass/Vol] 91 mg/dL Normal [facility] Comment on above: Result Comment: Bord jnbftj=322-142 mg/dL Higher Wiqy=514 mg/dL or greater Performed By: #### L 500.4100, L500.4050, L501.9520, L502.0250, L100.0100, L501.9910 #### [facility] [address] [place], [address] Cholesterol in VLDL [Mass/Vol] 48 mg/dL High 5-40 [facility] Comment on above: Performed By: #### L 500.4100, L500.4050, L501.9520, L502.0250, L100.0100, L501.9910 #### [facility] [address] [place], [address] Triglyceride [Mass/Vol] 242 mg/dL High [facility] Comment on above: Result Comment: The drugs N-Acetylcysteine and Metamizole may falsely depress this assay. Normal range: <150 mg/dL Borderline High: 150-199 mg/dL High: 200-499 mg/dL Very High: >500 mg/dL Performed By: #### L 500.4100, L500.4050, L501.9520, L502.0250, L100.0100, L501.9910 #### [facility] [address] [place], [address] MCV (mean corpuscular volume ) determinationOrdered By: Shan Nazario on 09-11-2024 MCV (RBC) [Entitic vol] 93.8 fL 80-94 [facility] Mean corpuscular hemoglobin (MCH) determinationOrdered By: Shan Nazario on 09-11-2024 MCH (RBC) [Entitic mass] 31.4 pg 27.0-32.0 [facility] Mean corpuscular hemoglobin concentration (MCHC) determinationOrdered By: Shan Nazario on 09-11-2024 MCHC (RBC) [Mass/Vol] 33.5 g/dL 32-36 [facility] Mean platelet volume determi nationOrdered By: Shan Nazario on 09-11-2024 Platelet mean volume (Bld) [Entitic vol] 10.1 fL 6.2-12.0 [facility] Microalb:Creat Ratio,Random URon 09-11-2024 Creatinine [Mass/Vol] 137.00 mg/dL Normal 39.00-259.00 [facility] Comment on above: Performed By: #### L 500.4100, L500.4050, L501.9520, L502.0250, L100.0100, L501.9910 #### [facility] [address] [place], [place], [id number] (781) MALB:CREAT UNABLE TO CALCULATE Normal <30 mg/g CRE [facility] Comment on above: Performed By: #### L 500.4100, L500.4050, L501.9520, L502.0250, L100.0100, L501.9910 #### [facility] [address] [place], [place], [id number] MICROALBUMIN,UR < 12.0 Normal <20 mg/L [facility] Comment on above: Performed By: #### L 500.4100, L500.4050, L501.9520, L502.0250, L100.0100, L501.9910 #### [facility] [address] [place], [place], [id number] Microalbumin/creat ratio urO rdered By: Shan Nazario on 09-11-2024 Urine microalbumin/creatinine ratio measurement UNABLE TO CALCULATE mg/g CRE <30 [facility] Monocyte percentageOrdered B y: Shan Nazario on 09-11-2024 Monocytes/100 WBC (Bld) 7.3 % 0-10 [facility] Neutrophil percentageOrdered By: Shan Nazario on 09-11-2024 Neutrophils/100 WBC (Bld) 68.5 % 47-70 [facility] Nucleated red blood cell per centageOrdered By: Shan Nazario on 09-11-2024 Nucleated RBC/100 WBC (Bld) [Ratio] 0 % 0-5 [facility] PSA,Total - Annual Screenon 09-11-2024 PSA,TOT SCREEN 2.08 ng/mL Normal 0.02-4.00 [facility] Comment on above: Result Comment: This test was performed using the [employer] tPSA method. Measured values of a patient??sample can vary depending on the testing procedure used. PSA values determined on patient samples by different testing procedures cannot be used interchangeably. If there is a change in PSA assays while monitoring therapy, sequential testing should be performed to confirm baseline values. Performed By: #### L 500.4100, L500.4050, L501.9520, L502.0250, L100.0100, L501.9910 #### [facility] [address] [place], [address] Platelet countOrdered By: Luis Angel Nazario on 09-11-2024 Platelets (Bld) [#/Vol] 175 10*3/uL 150-450 [facility] Potassium measurement (mass/ volume)Ordered By: Shan Nazario on 09-11-2024 Potassium (Unsp spec) [Mass/Vol] 4.4 mmol/L 3.3-5.1 [facility] RBC Auto (Bld) [#/Vol]Ordere d By: Shan Nazario on 09-11-2024 RBC (Bld) [#/Vol] 5.13 10*6/uL 4.6-6.2 [facility] Random urine creatinine radha urement (mass/volume)Ordered By: Shan Nazario on 09-11-2024 Creatinine Unsp time (U) [Mass/Vol] 137.00 mg/dL 39.00-259.00 [facility] Screening total cholesterol/ high density lipoprotein (HDL) cholesterol ratioOrdered By: Shan Nazario on 09-11-2024 Cholesterol.total/Deepti sterol in HDL [Mass ratio] 4.19 {ratio} [facility] Serum creatinine measurement (mass/volume)Ordered By: Shan Nazario on 09-11-2024 Creatinine [Mass/Vol] 1.17 mg/dL 0.70-1.20 [facility] Serum globulin measurementOr dered By: Shan Nazario on 09-11-2024 Globulin (S) [Mass/Vol] 2.5 g/dL 2.2-4.2 [facility] Serum glucose measurement (m ass/volume)Ordered By: Shan Nazario on 09-11-2024 Glucose [Mass/Vol] 121 mg/dL High 70-99 [facility] Serum or plasma alanine acosta otransferase (ALT) measurementOrdered By: Shan Nazario on 09-11-2024 ALT [Catalytic activity/Vol] 18 U/L <47 [facility] Serum or plasma albumin radha urement (mass/volume)Ordered By: Shan Nazario on 09-11-2024 Albumin [Mass/Vol] 4.2 g/dL 3.4-4.8 [facility] Serum or plasma albumin/glob ulin mass ratioOrdered By: Shan Nazario on 09-11-2024 Albumin/Globulin [Mass ratio] 1.7 {ratio} 0.9-2.4 [facility] Serum or plasma alkaline zayda sphatase measurementOrdered By: Shan Nazario on 09-11-2024 ALP [Catalytic activity/Vol] 80 U/L 40-129 [facility] Serum or plasma calcium radha urement (mass/volume)Ordered By: Shan Nazario on 09-11-2024 Calcium [Mass/Vol] 9.4 mg/dL 7.6-11.0 [facility] Serum or plasma cholesterol in HDL measurement (mass/volume)Ordered By: Shan Nazario on 09-11-2024 Cholesterol in HDL [Mass/Vol] 44 mg/dL >40 [facility] Comment on above: National Cholesterol Education Program (NCEP) guidelines:<40 mg/dL: Low HDL-cholesterol (major risk factor for CHD)>= 60 mg/dL: High HDL-cholesterol (negative risk factor for CHD)HDL-cholesterol is affected by a number of factors, e.g. smoking, exercise, hormones, sex and age. Serum or plasma cholesterol measurement (mass/volume)Ordered By: Shan Nazario on 09-11-2024 Cholesterol [Mass/Vol] 183 mg/dL <201 [facility] Comment on above: Cholesterol level, D esirable <200 mg/dLBorderline high cholesterol 200-239 mg/dLHigh cholesterol >=240 mg/dLRecommendations of the NCEP Adult Treatment Panel for the following risk-cutoff thresholds for the [place] population. Serum or plasma urea nitroge n measurement (mass/volume)Ordered By: Shan Nazario on 09-11-2024 Urea nitrogen [Mass/Vol] 13 mg/dL 4-19 [facility] Sodium levelOrdered By: Ang Nazario on 09-11-2024 Sodium [Moles/Vol] 140 mmol/L 133-145 [facility] TSH DL <= 0.005 mIU/L QnOrde red By: Shan Nazario on 09-11-2024 TSH Qn 0.957 uIU/mL 0.300-4.200 [facility] Thyroid Stim Hormone (TSH)on 09-11-2024 TSH 0.957 uIU/mL Normal 0.300-4.200 [facility] Comment on above: Performed By: #### L 500.4100, L500.4050, L501.9520, L502.0250, L100.0100, L501.9910 #### [facility] [address] [place], [address] Total proteinOrdered By: Cyril Nazario on 09-11-2024 Protein [Mass/Vol] 6.7 g/dL 5.9-8.4 [facility] Triglycerides measurementOrd ered By: hSan Nazario on 09-11-2024 Triglyceride [Mass/Vol] 242 mg/dL High <199 [facility] Comment on above: The drugs N-Acetylcy steine and Metamizole may falsely depress this assay. Normal range: <150 mg/dLBorderline High: 150-199 mg/dLHigh: 200-499 mg/dLVery High: >500 mg/dL Urine albumin measurement [facility] detection limit of 20 mg/L or less (mass/volume)Ordered By: Shan Nazario on 09-11-2024 Albumin DL <= 20 mg/L (U) [Mass/Vol] < 12.0 mg/L <20 mg/L [facility] White blood cell (WBC) count Ordered By: Shan Nazario on 09-11-2024 WBC (Bld) [#/Vol] 6.3 10*3/uL 4.4-11.0 [facility] Internal Medicine Office Vis iton 09-09-2024 Internal Medicine Office Visit [facility] [address] [place] [address] [place] [address] OFFICE VISIT Date of Service: 09/09/24 MR#: [id number] Acct: [id number] Name: DOMINGA LARKIN Rep #: [id number] : 1950 Provider: Dr. Shan lerner MD Age/Sex: 73/M Location: [facility] Status: Signed Intake Vital Signs 06/03/24 13:02 09/09/24 14:52 Height 5 ft 8 in 5 ft 8 in Weight: 231 lb BMI 35.1 BP 124/78 H Blood Pressure Location Lt brachial Position Sitting Respiration 16 Pulse 66 Pulse Source Monitor Temp 96.7 F L Temp Source Temporal Pulse Oximetry (%) 94 Oxygen Delivery Method room air Intake Visit Reasons: 3 M FU Chief Complaint: FU Steam Cleaner Required: No Accompanied by: Self Is patient in pain?: No Allergies lisinopril Adverse Reaction (Intermediate, Verified 09/09/24 14:45) COUGH Medications ???Medication ???Instructions ???Recorded ???Confirmed ???Type lansoprazole 15 mg delayed 15 mg PO DAILY reflux 12/23/17 History release,disintegrating tablet cholecalciferol (vitamin D3) 50 2,000 unit PO DAILY vitamin 09/09/24 History mcg (2,000 unit) capsule (Vitamin D3) Lactobacillus acidophilus 100 mg PO DAILY 10/20/21 09/09/24 History (Acidophilus capsule) psyllium husk 0.4 gram capsule 0.4 g PO DAILY 10/20/21 09/09/24 H istory (Daily Fiber) Handicap Placard #1 ea 09/05/22 09/09/24 Rx levothyroxine 100 mcg tablet 100 mcg PO DAILY #90 tabs 04/02/23 09/09/24 Rx blood-glucose meter #1 ea 04/03/23 09/09/24 Rx lancets 30 gauge (Unilet Lancets) #100 ea 05/29/23 09/09/24 Rx blood sugar diagnostic (True #100 ea 07/17/23 09/09/24 Rx Metrix Glucose Test Strip) pen needle, diabetic 32 gauge x #200 ea 07/17/23 09/09/24 Rx 1/4" (Unifine Pentips) amlodipine 5 mg tablet 5 mg PO DAILY blood pressure #90 1 03/14/23 09/09/24 Rx tabs blood pressure monitor #1 ea 02/03/24 09/09/24 Rx carvedilol 12.5 mg tablet 12.5 mg PO BID #180 tabs 02/17/24 09/09/24 Rx Jardiance 25 mg tablet 25 mg PO DAILY diabetes #90 tabs 0 03/05/24 09/09/24 Rx (empagliflozin) atorvastatin 80 mg tablet See Rx Instructions .Route 5 09/09/24 Rx .COMPLEX #90 tabs tizanidine 4 mg tablet 12 mg (3 x 4 mg) PO QHS muscle 08/1909/09/24 Rx spasticity/cramps #90 tabs sacubitril 49 mg-valsartan 51 mg 1 tab PO BID #180 tabs 05/13/24 Rx tablet (Entresto) insulin glargine 100 unit/mL (3 60 unit (0.6 mL) subcut DAILY 3 09/09/24 Rx mL) subcutaneous pen (Lantus months #54 mL Solostar U-100 Insulin) insulin lispro 100 unit/mL 13 unit (0.13 mL) subcut TID 3 07/1909/09/24 Rx subcutaneous pen (Humalog KwikPen months #35.1 mL (U-100) Insulin) flash glucose scanning reader #1 ea 09/09/24 09/09/24 Rx (FreeStyle Ynes 2 [place]) flash glucose sensor (FreeStyle #1 ea 09/09/24 09/09/24 Rx Ynes 2 Sensor kit) Have you fallen in the past year?: No Nurse's Note: freestyle 2 prescription must read 2 boxes per month for however many months has only been given 1 box per month and pharmacist stated it is how the script is written [facility] Medical History (Updated 09/09/24 @ 16:[address] Shan Nazario MD) Sweats, sweating, excessive Upper respiratory infection CAD (coronary artery disease) Bilateral knee pain Hypothyroidism Insulin dependent diabetes mellitus Health care maintenance BPH (benign prostatic hyperplasia) Wears glasses Hx of thyroid disease Hx of kidney disease Hx of irritable bowel syndrome History of high cholesterol Hx of essential hypertension Hx of hearing loss Hx of diabetes mellitus History of cataract History of back problems Hx of chronic arthritis Thyroid cancer Headache History of subdural hematoma Cardiomyopathy Abnormal findings on diagnostic imaging of heart and coronary circulation Postoperative atrial fibrillation Pure hypercholesterolemia Bronchitis Type 2 diabetes mellitus Balance problem Stroke Diarrhea Chest pain headaches Fatigue SOB (shortness of breath) History of hypertension Essential hypertension Atrial flutter Bradycardia Subdural hematoma (05/05/18) 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/23/17) History of acute inferior wall [place] (12/23/17) GERD (gastroesophageal reflux disease) Diabetes mellitus, type II Surgical History Hx of tonsillectomy Hx of craniotomy History of thyroidectomy History of coronary artery bypass graft ( 11/23/18) History of left heart catheterization (09/13/20) History of eye surgery History of appendectomy History of foreign hole surgery (05/05/18) Stented coronary artery (01/22/18) Family History ... Normal [facility] Laboratory - Hematology and Cell countsOrdered By: Shan Nazario on 09-09-2024 HbA1c (Bld) [Mass fraction] 7.4 % High 4.2-6.3 [facility] THYROID STIMULATING HORMONEo n 08-17-2024 THYROID STIMULATING HORMONE 0.52 uIU/mL Normal 0.35-4.94 [facility] Comment on above: Performed By: #### L [id number] #### Mold Technician: JOSE MORROW ([id number]) [facility] ([facility]) [address] [place] [address] TSHon 08-17-2024 TSH Qn 0.52 m[IU]/L [facility] TSH Qnon 08-17-2024 Interpretation and review of laboratory results Normal [facility] US THYROIDon 08-06-2024 US THYROID Patient Name: DOMINGA LARKIN : 1950 Exam Date/Time: 08/05/2024 13:00 Procedure: US THYROID Ordering Provider: WATERS MARK Reason For Exam: neoplasm uncertain behavior Exam type: Ultrasound thyroid. CLINICAL INDICATION: History of left thyroidectomy and right partial thyroidectomy COMPARISON: Thyroid ultrasound 07/24/2023 TECHNIQUE: Grayscale sonographic images were obtained of the thyroid. Color Doppler was utilized. FINDINGS: Right Lobe: Echotexture: Homogeneous Size: 1.0 x 1.8 x 3.3 cm. Left Lobe: Surgically absent Isthmus: 0.5 centimeters in thickness. No nodules. Cervical Lymph nodes: None IMPRESSION: Impression: Left thyroidectomy with no visualized residual thyroid tissue or masses in the thyroid bed. Right partial thyroidectomy with no new nodules in the residual right thyroid tissue. Please note: There are other existing guidelines to classify thyroid nodules to determine need for FNA. This decision will be deferred to the ordering physician. *TIRADS Risk for malignancy: TI-RADS 1 - 0 points - (benign) <2% risk TI-RADS 2 - 2 points - (not suspicious) <5% TI-RADS 3 - 3 points - (mildly suspicious) <5% - FNA when >/= 2.5cm. Follow when >1.5cm at 1, 3 and 5 years TI-RADS 4 - 4-6 points - (moderately suspicious) 5-20% - FNA when >/= 1.5cm. Follow when >1cm at 1, 2, 3 and 5 years TI-RADS 5 - 7+ points - (highly suspicious) >20% - FNA when >/= 1cm. Follow when >0.5cm every year for up to 5 years TI-RADS (2017) Reference: Chip Pan. ACR Thyroid Imaging, Reporting and Data System (TI-RADS): White Paper of the ACR TI RADS Committee. J Am [employer]. May 2016 Report Dictated on Electronically Signed By: Mike Chavez DR Electronically Signed Date/Time: 08/06/2024 12:36 PM EDT [facility] US Thyroid glandon Impression: Left thyroidectomy with no visualized residual thyroid tissue or masses in the thyroid bed. Right partial thyroidectomy with no new nodules in the residual right thyroid tissue. Please note: There are other existing guidelines to classify thyroid nodules to determine need for FNA. This decision will be deferred to the ordering physician. *TIRADS Risk for malignancy: TI-RADS 1 - 0 points - (benign) <2% risk TI-RADS 2 - 2 points - (not suspicious) <5% TI-RADS 3 - 3 points - (mildly suspicious) <5% - FNA when >/= 2.5cm. Follow when >1.5cm at 1, 3 and 5 years TI-RADS 4 - 4-6 points - (moderately suspicious) 5-20% - FNA when >/= 1.5cm. Follow when >1cm at 1, 2, 3 and 5 years TI-RADS 5 - 7+ points - (highly suspicious) >20% - FNA when >/= 1cm. Follow when >0.5cm every year for up to 5 years TI-RADS (2017) Reference: Chip Pan. ACR Thyroid Imaging, Reporting and Data System (TI-RADS): White Paper of the ACR TI RADS Committee. J [employer]. May 2016 Report Dictated on Electronically Signed By: Mike Chavez DR Electronically Signed Date/Time: 08/06/2024 12:36 PM EDT [facility] Patient Name: DOMINGA LARKIN : 1950 Exam Date/Time: 08/05/2024 13:00 Procedure: US THYROID Ordering Provider: WATERS MARK Reason For Exam: neoplasm uncertain behavior Exam type: Ultrasound thyroid. CLINICAL INDICATION: History of left thyroidectomy and right partial thyroidectomy COMPARISON: Thyroid ultrasound 07/24/2023 TECHNIQUE: Grayscale sonographic images were obtained of the thyroid. Color Doppler was utilized. FINDINGS: Right Lobe: Echotexture: Homogeneous Size: 1.0 x 1.8 x 3.3 cm. Left Lobe: Surgically absent Isthmus: 0.5 centimeters in thickness. No nodules. Cervical Lymph nodes: None [facility] Scott, Mike Velazquez MD - 08/06/2024 [facility] 1950 [id number] Exam Date/Time: 08/05/2024 13:00 Procedure: US THYROID Ordering Provider: WATERS MARK Reason For Exam: neoplasm uncertain behavior Exam type: Ultrasound thyroid. CLINICAL INDICATION: History of left thyroidectomy and right partial thyroidectomy COMPARISON: Thyroid ultrasound 07/24/2023 TECHNIQUE: Grayscale sonographic images were obtained of the thyroid. Color Doppler was utilized. FINDINGS: Right Lobe: Echotexture: Homogeneous Size: 1.0 x 1.8 x 3.3 cm. Left Lobe: Surgically absent Isthmus: 0.5 centimeters in thickness. No nodules. Cervical Lymph nodes: None IMPRESSION: Impression: Left thyroidectomy with no visualized residual thyroid tissue or masses in the thyroid bed. Right partial thyroidectomy with no new nodules in the residual right thyroid tissue. Please note: There are other existing guidelines to classify thyroid nodules to determine need for FNA. This decision will be deferred to the ordering physician. *TIRADS Risk for malignancy: TI-RADS 1 - 0 points - (benign) <2% risk TI-RADS 2 - 2 points - (not suspicious) <5% TI-RADS 3 - 3 points - (mildly suspicious) <5% - FNA when >/= 2.5cm. Follow when >1.5cm at 1, 3 and 5 years TI-RADS 4 - 4-6 points - (moderately suspicious) 5-20% - FNA when >/= 1.5cm. Follow when >1cm at 1, 2, 3 and 5 years TI-RADS 5 - 7+ points - (highly suspicious) >20% - FNA when >/= 1cm. Follow when >0.5cm every year for up to 5 years TI-RADS (2017) Reference: Erna Pan ACR Thyroid Imaging, Reporting and Data System (TI-RADS): White Paper of the ACR TI RADS Committee. J Am Red [facility]iology. May 2016 Report Dictated on Electronically Signed By: Mike Chavez DR Electronically Signed Date/Time: 08/06/2024 12:36 PM EDT [facility] Thyroid glandOrdered By: Mike Chavez on 08-06-2024 [facility] Work Phone: US Thyroid glandon Radiology Study observation (narrative) [facility] Echo Complete W/ Contraston 06-12-2024 Echo Complete W/ Contrast [facility] [address] [place] [address] Echo Complete W/ Contrast 06/12/24 1251 MR#: [id number] Acct: [id number] Name: DOMINGA LARKIN Rep #: [id number] : 1950 73 From: Esteban Yeboah MD Attending Dr: Dr. Esteban Yeboah MD Status: REG CLI Ordering Dr: Esteban Yeboah MD Date: 06/12/24 Location: [facility] Sex: M C Admitted: Reason For Study Reason For Study: CAD/ASHD Procedure This was a 2D Doppler, Color Flow transthoracic echocardiogram. The study was technically difficult. Contrast injection was performed. Exam performed in department. Left Ventricle Normal size and thickness. Severe posterior hypokinesis. Inferior hypokinesis. Estimated LVEF 35%. Stage I diastolic dysfunction. Right Ventricle Normal right ventricle. Atria There is mild biatrial dilatation. Mitral Valve Trivial mitral valve insufficiency. Tricuspid Valve Trivial tricuspid valve insufficiency. Aortic Valve Trisinus/trileaflet aortic valve. Pulmonic Valve The pulmonic valve is not well visualized. Great Vessels Mildly dilated aortic root. Pericardium/Pleural No pericardial effusion. Medication 22 gauge I.V. with prn adaptor inserted into right arm. Diluted definity 3ml given slow IV push to enhance endocardial definition. MMode/2D Measurements Calculations LVIDd: 5.5 cm IVSd: 1.1 cm Ao root diam: 3.9 cm LVIDs: 4.5 cm LVPWd: 1.3 cm RVDd: 4.2 cm FS: 17.2 % LAV(MOD-bp): 35.0 ml LVAd ap4: 34.9 cm2 SV(MOD-sp4): 65.8 ml LAV(MOD-bp) Indexed: 16.2 ml/m2 LVLd ap4: 8.4 cm SI(MOD-sp4): 30.4 ml/m2 LAV(MOD-sp2): 32.2 ml EDV(MOD-sp4): 121.3 ml LAV(MOD-sp4): 36.7 ml EDV(sp4-el): 123.7 ml LVAs ap4: 22.1 cm2 LVLs ap4: 7.3 cm ESV(MOD-sp4): 55.5 ml ESV(sp4-el): 56.8 ml EF(MOD-sp4): 54.2 % EF(sp4-el): 54.1 % SV(sp4-el): 66.9 ml LA A4 area: 14.8 cm2 LA dimension(2D): 4.6 cm RA A4 area: 12.7 cm2 Time Measurements MV dec time: 0.21 sec Doppler Measurements Calculations MV E max mary: 64.4 cm/sec Lat Peak E' Mary: 12.2 cm/sec Med Peak E' Mary: 6.3 cm/sec MV A max mary: 62.9 cm/sec E/E' lat: 5.3 E/E' med: 10.2 MV E/A: 1.0 MV V2 max: 82.5 cm/sec MV P1/2t max mary: 68.3 cm/sec Ao V2 max: 109.9 cm/sec MV max P.7 mmHg MV P1/2t: 79.7 msec Ao max P.8 mmHg MV V2 mean: 42.5 cm/sec MV dec slope: 250.9 cm/sec2 MV mean P.85 mmHg MVA(P1/2t): 2.8 cm2 MV V2 VTI: 30.9 cm LV V1 max: 82.4 cm/sec PA V2 max: 109.3 cm/sec TR max mary: 223.2 cm/sec LV V1 max P.7 mmHg PA V2 mean: 79.1 cm/sec TR max P.9 mmHg ECHO/Echo Complete W/ Contrast Interpretation Summary Severe posterior hypokinesis. Inferior hypokinesis. Estimated LVEF 35%. Stage I diastolic dysfunction. There is mild biatrial dilatation. Mildly dilated aortic root. The study was technically difficult. Ordering Physician: Esteban Yeboah Referring Physician: Esteban Yeboah Performed By: Sahil Fong RCS 06/15/24918 Date Esteban Yeboah MD CC: Dr. Esteban Yeboah MD; Dr. Shan Nazario MD Date Dictated: 06/12/24 1251 Date Transcribed: 06/15/24918 Integration Project Manager: Signed [facility] Internal Medicine Office Vis [facility] 06-03-2024 Internal Medicine Office Visit [facility] [address] [place] [address] [address] [place] [address] OFFICE VISIT Date of Service: 06/03/24 MR#: [id number] Acct: [id number] Name: DOMINGA LARKIN Rep #: [id number] : 1950 Provider: Dr. Shan lerner MD Age/Sex: 73/M Location: [facility] Status: Signed Intake Vital Signs 03/05/24 13:05 05/13/24 08:25 06/03/24 13:02 Height 5 ft 8 in 5 ft 8 in 5 ft 8 in Weight: 228 lb 4 oz BMI 34.7 Intake Visit Reasons: 3 M FU Chief Complaint: Follow-up chronic conditions Steam Cleaner Required: No Accompanied by: Self Is patient in pain?: No Allergies lisinopril Adverse Reaction (Intermediate, Verified 06/03/24 12:59) COUGH Medications ???Medication ???Instructions ???Recorded ???Confirmed ???Type lansoprazole 15 mg delayed 15 mg PO DAILY reflux 12/23/1711/19 History release,disintegrating tablet cholecalciferol (vitamin D3) 50 2,000 unit PO DAILY vitamin 06/03/24 History mcg (2,000 unit) capsule (Vitamin D3) Lactobacillus acidophilus 100 mg PO DAILY 10/20/21 06/03/24 History (Acidophilus capsule) psyllium husk 0.4 gram capsule 0.4 g PO DAILY 10/20/21 06/03/24 H istory (Daily Fiber) Handicap Placard #1 ea 09/05/22 06/03/24 Rx levothyroxine 100 mcg tablet 100 mcg PO DAILY #90 tabs 04/02/23 06/03/24 Rx blood-glucose meter #1 ea 04/03/23 06/03/24 Rx lancets 30 gauge (Unilet Lancets) #100 ea 05/29/23 06/03/24 Rx blood sugar diagnostic (True #100 ea 07/17/23 06/03/24 Rx Metrix Glucose Test Strip) pen needle, diabetic 32 gauge x #200 ea 07/17/23 06/03/24 Rx 1/4" (Perdooe Pentips) flash glucose scanning reader #1 ea 12/04/23 06/03/24 Rx (FreeStyle Ynes 2 Savanna) amlodipine 5 mg tablet 5 mg PO DAILY blood pressure #90 1 03/14/23 06/03/24 Rx tabs blood pressure monitor #1 ea 02/03/24 06/03/24 Rx flash glucose sensor (FreeStyle #1 ea 02/10/24 06/03/24 Rx Ynes 2 Sensor kit) carvedilol 12.5 mg tablet 12.5 mg PO BID #180 tabs 02/17/24 06/03/24 Rx Jardiance 25 mg tablet 25 mg PO DAILY diabetes #90 tabs 0 03/05/24 06/03/24 Rx (empagliflozin) insulin lispro 100 unit/mL 13 unit (0.13 mL) subcut TID 3 11/1906/03/24 Rx subcutaneous pen (Humalog KwikPen months #35.1 mL (U-100) Insulin) atorvastatin 80 mg tablet See Rx Instructions .Route 5 06/03/24 Rx .COMPLEX #90 tabs tizanidine 4 mg tablet 12 mg (3 x 4 mg) PO QHS muscle 08/1906/03/24 Rx spasticity/cramps #90 tabs sacubitril 49 mg-valsartan 51 mg 1 tab PO BID #180 tabs 05/13/24 Rx tablet (Entresto) insulin glargine 100 unit/mL (3 60 unit (0.6 mL) subcut DAILY 3 06/03/24 Rx mL) subcutaneous pen (Lantus months #54 mL Solostar U-100 Insulin) Have you fallen in the past year?: No PFSH Medical History Upper respiratory infection CAD (coronary artery disease) Bilateral knee pain Hypothyroidism Insulin dependent diabetes mellitus Health care maintenance BPH (benign prostatic hyperplasia) Wears glasses Hx of thyroid disease Hx of kidney disease Hx of irritable bowel syndrome History of high cholesterol Hx of essential hypertension Hx of hearing loss Hx of diabetes mellitus History of cataract History of back problems Hx of chronic arthritis Thyroid cancer Headache History of subdural hematoma Cardiomyopathy Abnormal findings on diagnostic imaging of heart and coronary circulation Postoperative atrial fibrillation Pure hypercholesterolemia Bronchitis Type 2 diabetes mellitus Balance problem Stroke Diarrhea Chest pain headaches Fatigue SOB (shortness of breath) History of hypertension Essential hypertension Atrial flutter Bradycardia Subdural hematoma (05/05/18) 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/23/17) History of acute inferior wall NH (12/23/17) GERD (gastroesophageal reflux disease) Diabetes mellitus, type II Surgical History Hx of tonsillectomy Hx of craniotomy History of thyroidectomy History of coronary artery bypass graft ( 11/23/18) History of left heart catheterization (09/13/20) History of eye surgery History of appendectomy History of foreign hole surgery (05/05/18) Stented coronary artery (01/22/18) Family History Father Negative for ASCVD Mother Negative for ASCVD Social History household members: spouse housing: house current occupational status: retired sexually active: No Smoking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 Laboratory - Hematology and Cell countsOrdered By: Fabiana Hernández on 03-09-2023 Erythrocyte distribution width (RBC) [Entitic vol] 45.2 fL 35.1-43.9 [facility] Erythrocyte distribution width (RBC) [Ratio] 13.2 % 11.6-14.6 [facility] Immature granulocytes/100 WBC (Bld) 0.600 % 0.0-0.9 [facility] Comment on above: IG% - Immature Granu locytes (promyelocytes, myelocytes and metamyelocytes) > 1% indicates that a LEFT SHIFT is Present. MCH (RBC) [Entitic mass] 31.1 pg 27.0-32.0 [facility] Nucleated RBC/100 WBC (Bld) [Ratio] 0 % 0-5 [facility] MCHC Auto (RBC) [Mass/Vol]Or dered By: Fabiana Hernández on 03-09-2023 MCHC (RBC) [Mass/Vol] 33.4 g/dL 32-36 [facility] No Panel InformationOrdered By: Fabiana Hernández on 03-09-2023 Estimated Creatinine Clearance Calc 62.16 ml/min [facility] Estimated GFR (MDRD) Amer 68 mL/min >60 [facility] Comment on above: GFR Calc Estimated GFR (MDRD) Non-Af Amer 56 mL/min >60 [facility] Comment on above: Non- GFR Calc Troponin I High Sensitivity 14 pg/mL 3.0-78.0 [facility] Comment on above: Please Note: [place] t Units and Gender Specific Reference Ranges. For more information see Policy Stat Procedure [place] High Sensitivity Troponin (TNIH) and attachments. Platelets bldOrdered By: Airam Hernández on 03-09-2023 Platelets (Bld) [#/Vol] 129 10*3/uL 150-450 [facility] Serum or plasma calcium radha urement (mass/volume)Ordered By: Fabiana Hernández on 03-09-2023 Calcium [Mass/Vol] 8.6 mg/dL 8.5-10.1 [facility] Serum or plasma creatinine m easurement (mass/volume)Ordered By: Fabiana Hernández on 03-09-2023 Creatinine [Mass/Vol] 1.34 mg/dL 0.70-1.30 [facility] Comment on above: The validity of the calculated GFR & GFRAA in patients over 70 years has not been determined. Clinical correlation is essential. Serum or plasma urea nitroge n measurement (mass/volume)Ordered By: Fabiana Hernández on 03-09-2023 Urea nitrogen [Mass/Vol] 15 mg/dL 7-18 [facility] Thin prep Papanicolaou smear with manual screeningOrdered By: Fabiana Hernández on 03-09-2023 Thin prep Papanicolaou smear with manual screening 7 5-15 [facility] Basophil percentageOrdered B y: Shan Nazario on 02-27-2023 Chloride [Moles/Vol] 106 mmol/L 98-107 [facility] Glucose [Mass/Vol] 174 mg/dL 74-106 [facility] Comment on above: Fasting Glucose resu lt greater than or equal to 126 mg/dL suggests DIABETES MELLITUS per A.D.A. criteria. Potassium [Moles/Vol] 4.4 mmol/L 3.5-5.1 [facility] Sodium [Moles/Vol] 143 mmol/L 136-145 [facility] Laboratory - Chemistry and C hemistry - challengeOrdered By: Shan Nazario on 02-27-2023 CO2 [Moles/Vol] 30.0 mmol/L 21.0-32.0 [facility] Urea nitrogen/Creatinine [Mass ratio] 12.2 mg/mg 10-20 [facility] Laboratory - Hematology and Cell countson 02-27-2023 HbA1c (Bld) [Mass fraction] 7.5 % 4.2-6.3 [facility] No Panel InformationOrdered By: Shan Nazario on 02-27-2023 Estimated GFR (MDRD) Amer 75 mL/min >60 [facility] Comment on above: GFR Calc Estimated GFR (MDRD) Non-Af Amer 62 mL/min >60 [facility] Comment on above: Non- GFR Calc Serum or plasma calcium radha urement (mass/volume)Ordered By: Shan Nazario on 02-27-2023 Calcium [Mass/Vol] 9.1 mg/dL 8.5-10.1 [facility] Serum or plasma creatinine m easurement (mass/volume)Ordered By: Shan Nazario on 02-27-2023 Creatinine [Mass/Vol] 1.23 mg/dL 0.70-1.30 [facility] Comment on above: The validity of the calculated GFR & GFRAA in patients over 70 years has not been determined. Clinical correlation is essential. Serum or plasma urea nitroge n measurement (mass/volume)Ordered By: Shan Nazario on 02-27-2023 Urea nitrogen [Mass/Vol] 15 mg/dL 7-18 [facility] Thin prep Papanicolaou smear with manual screeningOrdered By: Shan Nazario on 02-27-2023 Thin prep Papanicolaou smear with manual screening 7 5-15 [facility] Basophil percentageOrdered B y: Shan Nazario on 11-14-2022 Chloride [Moles/Vol] 112 mmol/L 98-107 [facility] Glucose [Mass/Vol] 98 mg/dL 74-106 [facility] Potassium [Moles/Vol] 4.6 mmol/L 3.5-5.1 [facility] Sodium [Moles/Vol] 142 mmol/L 136-145 [facility] Laboratory - Chemistry and C hemistry - challengeOrdered By: Shan Nazario on 11-14-2022 CO2 [Moles/Vol] 25.0 mmol/L 21.0-32.0 [facility] Urea nitrogen/Creatinine [Mass ratio] 13.9 mg/mg 10-20 [facility] Laboratory - Hematology and Cell countson 11-14-2022 HbA1c (Bld) [Mass fraction] 7.1 % 4.2-6.3 [facility] No Panel InformationOrdered By: Shan Nazario on 11-14-2022 Estimated GFR (MDRD) Amer 76 mL/min >60 [facility] Comment on above: GFR Calc Estimated GFR (MDRD) Non-Af Amer 62 mL/min >60 [facility] Comment on above: Non- GFR Calc Serum or plasma calcium radha urement (mass/volume)Ordered By: Shan Nazario on 11-14-2022 Calcium [Mass/Vol] 9.0 mg/dL 8.5-10.1 [facility] Serum or plasma creatinine m easurement (mass/volume)Ordered By: Shan Nazario on 11-14-2022 Creatinine [Mass/Vol] 1.22 mg/dL 0.70-1.30 [facility] Comment on above: The validity of the calculated GFR & GFRAA in patients over 70 years has not been determined. Clinical correlation is essential. Serum or plasma urea nitroge n measurement (mass/volume)Ordered By: Shan Nazario on 11-14-2022 Urea nitrogen [Mass/Vol] 17 mg/dL 7-18 [facility] Thin prep Papanicolaou smear with manual screeningOrdered By: Shan Nazario on 11-14-2022 Thin prep Papanicolaou smear with manual screening 5 5-15 [facility] Absolute lymphocyte countOrd ered By: Dr. Nazario on 07-27-2022 Lymphocytes Auto (Unsp spec) [#/Vol] 1.39 10*3/uL 0.83-4.51 [facility] Basophil percentageOrdered B y: Dr. Nazario on 07-27-2022 Basophils/100 WBC (Bld) 0.5 % 0-1 [facility] Bilirubin [Mass/Vol] 0.70 mg/dL 0.20-1.00 [facility] Comment on above: For patients on eltr ombopag therapy, use of Dimension [place] TBIL is not recommended. Chloride [Moles/Vol] 108 mmol/L 98-107 [facility] Cholesterol [Mass/Vol] 168 mg/dL <200 [facility] Comment on above: <200 mg/dL Desirable 200-240 mg/dL Borderline >240 mg/dL High Risk Eosinophils/100 WBC (Bld) 1.2 % 0-5 [facility] Glucose [Mass/Vol] 172 mg/dL 74-106 [facility] Comment on above: Fasting Glucose resu lt greater than or equal to 126 mg/dL suggests DIABETES MELLITUS per A.D.A. criteria. Neutrophils (Bld) [#/Vol] 4.0 10*3/uL 2.0-7.7 [facility] Neutrophils/100 WBC (Bld) 67.9 % 47-70 [facility] Potassium [Moles/Vol] 5.0 mmol/L 3.5-5.1 [facility] Protein [Mass/Vol] 6.2 g/dL 6.4-8.2 [facility] Sodium [Moles/Vol] 140 mmol/L 136-145 [facility] Triglyceride [Mass/Vol] 243 mg/dL <199 [facility] Comment on above: The drugs N-Acetylcy steine and Metamizole may falsely depress this assay.Serum Triglycerides Reference Interval Normal <150 mg/dL Borderline high 150 - 199 mg/dL High 200 - 499 mg/dL Very High > or = 500 mg/dL WBC (Bld) [#/Vol] 5.9 10*3/uL 4.4-11.0 [facility] Blood erythrocytes count (nu mber/volume)Ordered By: Dr. Nazario on 07-27-2022 RBC (Bld) [#/Vol] 5.10 10*6/uL 4.6-6.2 [facility] Blood hemoglobin measurement (mass/volume)Ordered By: Dr. Nazario on 07-27-2022 Hemoglobin (Bld) [Mass/Vol] 16.1 g/dL 13.0-16.5 [facility] Blood lymphocytes/100 leukoc ytesOrdered By: Dr. Nazario on 07-27-2022 Lymphocytes/100 WBC (Bld) 23.8 % 19-41 [facility] Blood monocytes/100 leukocyt esOrdered By: Dr. Nazario on 07-27-2022 Monocytes/100 WBC (Bld) 6.3 % 0-10 [facility] Blood platelet mean volumeOr dered By: Dr. Nazario on 07-27-2022 Platelet mean volume (Bld) [Entitic vol] 10.7 fL 6.2-12.0 [facility] Determination of erythrocyte mean corpuscular volume (MCV)Ordered By: Dr. Nazario on 07-27-2022 MCV (RBC) [Entitic vol] 96.5 fL 80-94 [facility] Hematocrit Auto (Bld) [Volum e fraction]Ordered By: Dr. Nazario on 07-27-2022 Hematocrit (Bld) [Volume fraction] 49.2 % 40-54 [facility] Laboratory - Chemistry and C hemistry - challengeOrdered By: Dr. Nazario on 07-27-2022 ALP [Catalytic activity/Vol] 78 U/L 45-117 [facility] ALT [Catalytic activity/Vol] 27 U/L 16-61 [facility] CO2 [Moles/Vol] 25.0 mmol/L 21.0-32.0 [facility] Globulin (S) [Mass/Vol] 2.6 g/dL 2.2-4.2 [facility] Urea nitrogen/Creatinine [Mass ratio] 11.6 mg/mg 10-20 [facility] Laboratory - Hematology and Cell countsOrdered By: Dr. Nazario on 07-27-2022 Erythrocyte distribution width (RBC) [Entitic vol] 47.8 fL 35.1-43.9 [facility] Erythrocyte distribution width (RBC) [Ratio] 13.3 % 11.6-14.6 [facility] Immature granulocytes/100 WBC (Bld) 0.300 % 0.0-0.9 [facility] Comment on above: IG% - Immature Granu locytes (promyelocytes, myelocytes and metamyelocytes) > 1% indicates that a LEFT SHIFT is Present. MCH (RBC) [Entitic mass] 31.6 pg 27.0-32.0 [facility] Nucleated RBC/100 WBC (Bld) [Ratio] 0 % 0-5 [facility] MCHC Auto (RBC) [Mass/Vol]Or dered By: Dr. Nazario on 07-27-2022 MCHC (RBC) [Mass/Vol] 32.7 g/dL 32-36 [facility] No Panel InformationOrdered By: Dr. Nazario on 07-27-2022 Estimated GFR (MDRD) Amer 71 mL/min >60 [facility] Comment on above: GFR Calc Estimated GFR (MDRD) Non-Af Amer 59 mL/min >60 [facility] Comment on above: Non- GFR Calc Thyroid Stimulating Hormone (TSH) 0.52 uIU/mL 0.358-3.74 [facility] Urine Microalbumin/Creatinine Ratio TNP [facility] Comment on above: Test not performed Platelets bldOrdered By: Dr. Nazario on 07-27-2022 Platelets (Bld) [#/Vol] 138 10*3/uL 150-450 [facility] Serum or plasma albumin radha urement (mass/volume)Ordered By: Dr. Nazario on 07-27-2022 Albumin [Mass/Vol] 3.6 g/dL 3.2-5.0 [facility] Serum or plasma albumin/glob ulin mass ratioOrdered By: Dr. Nazario on 07-27-2022 Albumin/Globulin [Mass ratio] 1.4 {ratio} 0.9-2.4 [facility] Serum or plasma calcium radha urement (mass/volume)Ordered By: Dr. Nazario on 07-27-2022 Calcium [Mass/Vol] 8.5 mg/dL 8.5-10.1 [facility] Serum or plasma cholesterol in HDL measurement (mass/volume)Ordered By: Dr. Nazario on 07-27-2022 Cholesterol in HDL [Mass/Vol] 45 mg/dL >40 [facility] Comment on above: The drugs N-Acetylcy steine and Metamizole may falsely depress this assay. Reference Range HDL <40 mg/dL Low HDL Cholesterol HDL >or= 60 mg/dL High HDL Cholesterol Serum or plasma cholesterol in VLDL measurement (mass/volume)Ordered By: Dr. Nazario on 07-27-2022 Cholesterol in VLDL [Mass/Vol] 49 mg/dL 5-40 [facility] Serum or plasma creatinine m easurement (mass/volume)Ordered By: Dr. Nazario on 07-27-2022 Creatinine [Mass/Vol] 1.29 mg/dL 0.70-1.30 [facility] Comment on above: The validity of the calculated GFR & GFRAA in patients over 70 years has not been determined. Clinical correlation is essential. Serum or plasma low density lipoprotein (LDL) cholesterol measurement (mass/volume)Ordered By: Dr. Nazario on 07-27-2022 Cholesterol in LDL [Mass/Vol] 74 mg/dL 0-130 [facility] Serum or plasma urea nitroge n measurement (mass/volume)Ordered By: Dr. Nazario on 07-27-2022 Urea nitrogen [Mass/Vol] 15 mg/dL 7-18 [facility] Thin prep Papanicolaou smear with manual screeningOrdered By: Dr. Nazario on 07-27-2022 Thin prep Papanicolaou smear with manual screening 28 U/L 15-37 [facility] Thin prep Papanicolaou smear with manual screening 7 5-15 [facility] Thin prep Papanicolaou smear with manual screening < 5.0 mg/L NO RANGE EST. [facility] Urine creatinine measurement (mass/volume)Ordered By: Dr. Nazario on 07-27-2022 Creatinine (U) [Mass/Vol] 51.90 mg/dL NO RANGE EST. [facility] [facility] Whole blood hemoglobin A1c/t otal hemoglobin ratio (mass fraction)Ordered By: Dr. Nazario on 07-27-2022 HbA1c (Bld) [Mass fraction] 6.9 % 3.8-5.6 [facility] Comment on above: Normal < 5.7 % Predi abetic 5.7 - 6.4 % Diabetic >or= 6.5 % Please note range changes. Laboratory - Hematology and Cell countson 07-26-2022 HbA1c (Bld) [Mass fraction] 6.8 % 4.2-6.3 [facility] Anti-thyroglobulin antibodyo n 06-14-2022 Interpretation and review of laboratory results Normal [facility] THYROBLOBULIN ANTIBODY [place] Lower limit of linearity for this assay is 3.00 IU/mL. [facility] TSHon 06-12-2022 TSH Qn 0.504 m[IU]/L [facility] TSH Qnon 06-12-2022 Interpretation and review of laboratory results Normal [facility] Laboratory - Hematology and Cell countson 04-20-2022 HbA1c (Bld) [Mass fraction] 7.3 % 4.2-6.3 [facility] Absolute lymphocyte counton 12-15-2021 Lymphocytes Auto (Unsp spec) [#/Vol] 1.48 10*3/uL 0.83-4.51 [facility] Work Phone: Basophil percentageon 2021 Basophil percentage 4.0 mg/dL 2.5-4.9 [facility] Work Phone: Basophils/100 WBC (Bld) 0.6 % 0-1 [facility] Work Phone: Chloride [Moles/Vol] 106 mmol/L 98-107 [facility] Work Phone: Eosinophils/100 WBC (Bld) 1.7 % 0-5 [facility] Work Phone: Glucose [Mass/Vol] 218 mg/dL 74-106 [facility] Work Phone: Comment on above: Glucose result great er than or equal to 200 mg/dLsuggests DIABETES MELLITUS per A.D.A. criteria. Neutrophils (Bld) [#/Vol] 3.1 10*3/uL 2.0-7.7 [facility] Work Phone: Neutrophils/100 WBC (Bld) 58.6 % 47-70 [facility] Work Phone: Potassium [Moles/Vol] 4.2 mmol/L 3.5-5.1 [facility] Work Phone: Sodium [Moles/Vol] 138 mmol/L 136-145 [facility] Work Phone: WBC (Bld) [#/Vol] 5.2 10*3/uL 4.4-11.0 [facility] Work Phone: Blood erythrocytes count (nu mber/volume)on 12-15-2021 RBC (Bld) [#/Vol] 5.42 10*6/uL 4.6-6.2 [facility] Work Phone: Blood hemoglobin measurement (mass/volume)on 12-15-2021 Hemoglobin (Bld) [Mass/Vol] 16.1 g/dL 13.0-16.5 [facility] Work Phone: Blood lymphocytes/100 leukoc yteson 12-15-2021 Lymphocytes/100 WBC (Bld) 28.5 % 19-41 [facility] Work Phone: Blood monocytes/100 leukocyt eson 12-15-2021 Monocytes/100 WBC (Bld) 9.8 % 0-10 [facility] Work Phone: Blood platelet mean volumeon 12-15-2021 Platelet mean volume (Bld) [Entitic vol] 10.8 fL 6.2-12.0 [facility] Work Phone: Determination of erythrocyte mean corpuscular volume (MCV)on 12-15-2021 MCV (RBC) [Entitic vol] 91.3 fL 80-94 [facility] Work Phone: Hematocrit Auto (Bld) [Volum e fraction]on 12-15-2021 Hematocrit (Bld) [Volume fraction] 49.5 % 40-54 [facility] Work Phone: Laboratory - Chemistry and C hemistry - challengeon 12-15-2021 CO2 [Moles/Vol] 27.0 mmol/L 21.0-32.0 [facility] Work Phone: Urea nitrogen/Creatinine [Mass ratio] 14.3 mg/mg 10-20 [facility] Work Phone: Laboratory - Hematology and Cell countson 12-15-2021 Erythrocyte distribution width (RBC) [Entitic vol] 49.0 fL 35.1-43.9 [facility] Work Phone: Erythrocyte distribution width (RBC) [Ratio] 14.5 % 11.6-14.6 [facility] Work Phone: [phone] Immature granulocytes/100 WBC (Bld) 0.800 % 0.0-0.9 [facility] Work Phone: Comment on above: IG% - Immature Granu locytes (promyelocytes, myelocytes and metamyelocytes) > 1% indicates that a LEFT SHIFT is Present. MCH (RBC) [Entitic mass] 29.7 pg 27.0-32.0 [facility] Work Phone: Nucleated RBC/100 WBC (Bld) [Ratio] 0 % 0-5 [facility] Work Phone: [phone] MCHC Auto (RBC) [Mass/Vol]on 12-15-2021 MCHC (RBC) [Mass/Vol] 32.5 g/dL 32-36 [facility] Work Phone: No Panel Informationon 12-15 Estimated GFR (MDRD) Amer 84 mL/min >60 [facility] Work Phone: Comment on above: GFR Calc Estimated GFR (MDRD) Non-Af Amer 69 mL/min >60 [facility] Work Phone: Comment on above: Non- GFR Calc Parathyroid Hormone (Intact) 42.8 pg/mL 18.4-80.1 [facility] Work Phone: [phone] Vitamin D 25-Hydroxy 45.6 ng/mL [facility] Work Phone: [phone] Comment on above: Vitamin D 25(OH) Sta tus Range Deficiency <20 ng/mL (50nmol/L) Insufficiency 20 - 30 ng/mL (50 - 75 nmol/L) Sufficiency 30 - 100 ng/mL (75 - 250 nmol/L) Toxicity >100 ng/mL (>250 nmol/L) Platelets bldon 12-15-2021 Platelets (Bld) [#/Vol] 125 10*3/uL 150-450 [facility] Work Phone: Serum or plasma albumin radha urement (mass/volume)on 12-15-2021 Albumin [Mass/Vol] 3.2 g/dL 3.2-5.0 [facility] Work Phone: [phone] Serum or plasma calcium radha urement (mass/volume)on 12-15-2021 Calcium [Mass/Vol] 8.6 mg/dL 8.5-10.1 [facility] Work Phone: [phone] Serum or plasma creatinine m easurement (mass/volume)on 12-15-2021 Creatinine [Mass/Vol] 1.12 mg/dL 0.70-1.30 [facility] Work Phone: Comment on above: The validity of the calculated GFR & GFRAA in patients over 70 years has not been determined. Clinical correlation is essential. Serum or plasma urea nitroge n measurement (mass/volume)on 12-15-2021 Urea nitrogen [Mass/Vol] 16 mg/dL 7-18 [facility] Work Phone: [phone] Urine creatinine measurement (mass/volume)on 12-15-2021 Creatinine (U) [Mass/Vol] 65.10 mg/dL NO RANGE EST. [facility] Work Phone: Urine protein measurement (m ass/volume)on 12-15-2021 Protein (U) [Mass/Vol] 9.5 mg/dL 0.0-11.8 [facility] Work Phone: [phone] Urine protein/creatinine mas s ratioon 12-15-2021 Protein/Creatinine (U) [Mass ratio] 146 mg/g CRE 0-200 [facility] Work Phone: Absolute lymphocyte counton 10-20-2021 Lymphocytes Auto (Unsp spec) [#/Vol] 1.63 10*3/uL 0.83-4.51 [facility] Work Phone: Basophil percentageon 2021 Basophils/100 WBC (Bld) 0.6 % 0-1 [facility] Work Phone: [phone] Bilirubin [Mass/Vol] 0.70 mg/dL 0.20-1.00 [facility] Work Phone: Comment on above: For patients on eltr ombopag therapy, use of Dimension [place] TBIL is not recommended. Chloride [Moles/Vol] 106 mmol/L 98-107 [facility] Work Phone: Cholesterol [Mass/Vol] 160 mg/dL <200 [facility] Work Phone: Comment on above: <200 mg/dL Desirable 200-240 mg/dL Borderline >240 mg/dL High Risk Eosinophils/100 WBC (Bld) 1.9 % 0-5 [facility] Work Phone: Glucose [Mass/Vol] 101 mg/dL 74-106 [facility] Work Phone: Comment on above: Fasting Glucose resu lt from 100 to 125 mg/dL suggests IMPAIRED HOMEOSTASIS per A.D.A. criteria. Neutrophils (Bld) [#/Vol] 3.1 10*3/uL 2.0-7.7 [facility] Work Phone: Neutrophils/100 WBC (Bld) 58.1 % 47-70 [facility] Work Phone: Potassium [Moles/Vol] 4.5 mmol/L 3.5-5.1 [facility] Work Phone: Protein [Mass/Vol] 6.4 g/dL 6.4-8.2 [facility] Work Phone: Sodium [Moles/Vol] 140 mmol/L 136-145 [facility] Work Phone: Triglyceride [Mass/Vol] 236 mg/dL <199 [facility] Work Phone: Comment on above: The drugs N-Acetylcy steine and Metamizole may falsely depress this assay.Serum Triglycerides Reference Interval Normal <150 mg/dL Borderline high 150 - 199 mg/dL High 200 - 499 mg/dL Very High > or = 500 mg/dL WBC (Bld) [#/Vol] 5.3 10*3/uL 4.4-11.0 [facility] Work Phone: Blood erythrocytes count (nu mber/volume)on 10-20-2021 RBC (Bld) [#/Vol] 5.45 10*6/uL 4.6-6.2 [facility] Work Phone: Blood hemoglobin measurement (mass/volume)on 10-20-2021 Hemoglobin (Bld) [Mass/Vol] 15.8 g/dL 13.0-16.5 [facility] Work Phone: [phone] Blood lymphocytes/100 leukoc yteson 10-20-2021 Lymphocytes/100 WBC (Bld) 31.0 % 19-41 [facility] Work Phone: [phone] Blood monocytes/100 leukocyt eson 10-20-2021 Monocytes/100 WBC (Bld) 8.2 % 0-10 [facility] Work Phone: Blood platelet mean volumeon 10-20-2021 Platelet mean volume (Bld) [Entitic vol] 10.5 fL 6.2-12.0 [facility] Work Phone: Determination of erythrocyte mean corpuscular volume (MCV)on 10-20-2021 MCV (RBC) [Entitic vol] 91.2 fL 80-94 [facility] Work Phone: Hematocrit Auto (Bld) [Volum e fraction]on 10-20-2021 Hematocrit (Bld) [Volume fraction] 49.7 % 40-54 [facility] Work Phone: Laboratory - Chemistry and C hemistry - challengeon 10-20-2021 ALP [Catalytic activity/Vol] 103 U/L 45-117 [facility] Work Phone: ALT [Catalytic activity/Vol] 28 U/L 16-61 [facility] Work Phone: [phone] CO2 [Moles/Vol] 28.0 mmol/L 21.0-32.0 [facility] Work Phone: Globulin (S) [Mass/Vol] 3.3 g/dL 2.2-4.2 [facility] Work Phone: [phone] Urea nitrogen/Creatinine [Mass ratio] 10.3 mg/mg 10-20 [facility] Work Phone: [phone] Laboratory - Hematology and Cell countson 10-20-2021 Erythrocyte distribution width (RBC) [Entitic vol] 49.9 fL 35.1-43.9 [facility] Work Phone: [phone] Erythrocyte distribution width (RBC) [Ratio] 15.2 % 11.6-14.6 [facility] Work Phone: [phone] Immature granulocytes/100 WBC (Bld) 0.200 % 0.0-0.9 [facility] Work Phone: [phone] Comment on above: IG% - Immature Granu locytes (promyelocytes, myelocytes and metamyelocytes) > 1% indicates that a LEFT SHIFT is Present. MCH (RBC) [Entitic mass] 29.0 pg 27.0-32.0 [facility] Work Phone: [phone] Nucleated RBC/100 WBC (Bld) [Ratio] 0 % 0-5 [facility] Work Phone: [phone] MCHC Auto (RBC) [Mass/Vol]on 10-20-2021 MCHC (RBC) [Mass/Vol] 31.8 g/dL 32-36 [facility] Work Phone: [phone] No Panel Informationon 10-20 Estimated GFR (MDRD) Amer 80 mL/min >60 [facility] Work Phone: [phone] Comment on above: GFR Calc Estimated GFR (MDRD) Non-Af Amer 66 mL/min >60 [facility] Work Phone: [phone] Comment on above: Non- GFR Calc Prostate Specific Antigen Screen 3.22 ng/mL 0.00-4.00 [facility] Work Phone: [phone] Comment on above: This test was perfor med using the TPSA assay method for the[employer] chemistry system. Values obtained with differentassay methods cannot be used interchangably.When changing PSA assays in the course of monitoring apatient, additional sequential testing should be carriedout to confirm baseline values. Platelets bldon 10-20-2021 Platelets (Bld) [#/Vol] 142 10*3/uL 150-450 [facility] Work Phone: Serum or plasma albumin radha urement (mass/volume)on 10-20-2021 Albumin [Mass/Vol] 3.1 g/dL 3.2-5.0 [facility] Work Phone: Serum or plasma albumin/glob ulin mass ratioon 10-20-2021 Albumin/Globulin [Mass ratio] 0.9 {ratio} 0.9-2.4 [facility] Work Phone: Serum or plasma calcium radha urement (mass/volume)on 10-20-2021 Calcium [Mass/Vol] 9.0 mg/dL 8.5-10.1 [facility] Work Phone: Serum or plasma cholesterol in HDL measurement (mass/volume)on 10-20-2021 Cholesterol in HDL [Mass/Vol] 43 mg/dL >40 [facility] Work Phone: Comment on above: The drugs N-Acetylcy steine and Metamizole may falsely depress this assay. Reference Range HDL <40 mg/dL Low HDL Cholesterol HDL >or= 60 mg/dL High HDL Cholesterol Serum or plasma cholesterol in VLDL measurement (mass/volume)on 10-20-2021 Cholesterol in VLDL [Mass/Vol] 47 mg/dL 5-40 [facility] Work Phone: Serum or plasma creatinine m easurement (mass/volume)on 10-20-2021 Creatinine [Mass/Vol] 1.16 mg/dL 0.70-1.30 [facility] Work Phone: Comment on above: The validity of the calculated GFR & GFRAA in patients over 70 years has not been determined. Clinical correlation is essential. Serum or plasma low density lipoprotein (LDL) cholesterol measurement (mass/volume)on 10-20-2021 Cholesterol in LDL [Mass/Vol] 70 mg/dL 0-130 [facility] Work Phone: Serum or plasma urea nitroge n measurement (mass/volume)on 10-20-2021 Urea nitrogen [Mass/Vol] 12 mg/dL 7-18 [facility] Work Phone: Thin prep Papanicolaou smear with manual screeningon 10-20-2021 Thin prep Papanicolaou smear with manual screening 27 U/L 15-37 [facility] Work Phone: Thin prep Papanicolaou smear with manual screening 6 5-15 [facility] Work Phone: Whole blood hemoglobin A1c/t otal hemoglobin ratio (mass fraction)on 10-20-2021 HbA1c (Bld) [Mass fraction] 7.9 % 3.8-5.6 [facility] Work Phone: Comment on above: Normal < 5.7 % Predi abetic 5.7 - 6.4 % Diabetic >or= 6.5 % Please note range changes. No Panel Informationon 10-06 Thyroid Stimulating Hormone (TSH) 0.51 uIU/mL 0.358-3.74 [facility] Work Phone: TSHon 07-26-2021 Interpretation and review of laboratory results Abnormal [facility] TSH Qn 0.349 u[IU]/mL Low 0.465 - 4.680 u[IU]/mL [facility] Test Performed by [facility], [address] LAB [facility] Thyroid Stim. Hormoneon Thyroid Stim. 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 AP, lateral and L5-S1 views and lumbar spine. Lateral views performed with flexion and extension also performed. Lumbar vertebral bodies are normal in height. 3 mm of retrolisthesis of L3 in reference to L4 similar on flexion and extension. 2 mm of anterolisthesis of L4 in reference L5 is similar on flexion and extension. Moderate to severe disc space narrowing at L2-L3, L3-L4, and L5-S1. Mild disc space narrowing at L4-L5. AP view shows mild curvature, convex to the left. Degenerative endplate and facet changes at the L2-S1 levels. IMPRESSION: Mild retrolisthesis of L3 in reference to L4 similar on flexion and extension. Mild anterolisthesis of L4 reference L5 is similar on flexion and extension. Multilevel degenerative disc, endplate and facet changes. 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 AP, lateral and L5-S1 views and lumbar spine. Lateral views performed with flexion and extension also performed. Lumbar vertebral bodies are normal in height. 3 mm of retrolisthesis of L3 in reference to L4 similar on flexion and extension. 2 mm of anterolisthesis of L4 in reference L5 is similar on flexion and extension. Moderate to severe disc space narrowing at L2-L3, L3-L4, and L5-S1. Mild disc space narrowing at L4-L5. AP view shows mild curvature, convex to the left. Degenerative endplate and facet changes at the L2-S1 levels. IMPRESSION: Mild retrolisthesis of L3 in reference to L4 similar on flexion and extension. Mild anterolisthesis of L4 reference L5 is similar on flexion and extension. Multilevel degenerative disc, endplate and facet changes. Report Dictated on --- Final --- Dictating Physician: MD MALLORY LAURA Signed Date and Time: 06/22/2021 4:38 pm Signed by: MD MALLORY LAURA Transcribed Date and Time: 06/22/2021 4:39 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 AP, lateral and L5-S1 views and lumbar spine. Lateral views performed with flexion and extension also performed. Lumbar vertebral bodies are normal in height. 3 mm of retrolisthesis of L3 in reference to L4 similar on flexion and extension. 2 mm of anterolisthesis of L4 in reference L5 is similar on flexion and extension. Moderate to severe disc space narrowing at L2-L3, L3-L4, and L5-S1. Mild disc space narrowing at L4-L5. AP view shows mild curvature, convex to the left. Degenerative endplate and facet changes at the L2-S1 levels. IMPRESSION: Mild retrolisthesis of L3 in reference to L4 similar on flexion and extension. Mild anterolisthesis of L4 reference L5 is similar on flexion and extension. Multilevel degenerative disc, endplate and facet changes. Report Dictated on --- Final --- Dictating Physician: MD MALLORY LAURA Signed Date and Time: 06/22/2021 4:38 pm Signed by: MD MALLORY LAURA Transcribed Date and Time: 06/22/2021 4:39 [facility] Work Phone: Radiology Study observation (narrative) [facility] Work Phone: XR LUMBAR SPINE (MIN 4 VIEWS )Ordered By: John Mallory on 06-22-2021 [facility] Work Phone: Calciumon 06-17-2021 Calcium [Mass/Vol] 9.2 mg/dL Normal 8.4-10.4 [facility] Comment on above: Performed By: #### T SH5, LIPD2, PSA3S, FT4M, HA1C2, HEMDF, CMP3 #### [facility] [address] [place] [address] Calcium [Mass/Vol] 9.2 mg/dL 8.4 - 10. 4 mg/dL [facility] Test Performed by [facility], [address] [facility] Calcium [Mass/Vol] 9.2 mg/dL Normal 8.4-10.4 [facility] Comment on above: Performed By: #### C A3 #### [facility] [address] [place] [address] Calcium [Mass/Vol] 9.2 mg/dL 8.4 - 10. 4 mg/dL [facility] Test Performed by [facility], [address] LAB [facility] Glucose,Bedsideon 06-17-2021 Glucose [Mass/Vol] 201 mg/dL High 70-100 [facility] Comment on above: Result Comment: Test performed by glucose meter. Results may be 10%-15% lower than serum/plasma values. (CLIA ID [id number]) Performed By: #### T SH5, LIPD2, PSA3S, FT4M, HA1C2, HEMDF, CMP3 #### [facility] [address] [place] [address] Glucose [Mass/Vol] 179 mg/dL High 70-100 [facility] Comment on above: Result Comment: Test performed by glucose meter. Results may be 10%-15% lower than serum/plasma values. (CLIA ID [id number]) Performed By: #### B GLU #### [facility] [address] [place] [address] POCT GlucoseOrdered By: Paul James on 06-17-2021 Glucose [Mass/Vol] 201 mg/dL High 70 - 100 mg/dL [facility] Comment on above: Test performed by gl ucose meter. Results may be 10%-15% lower than serum/plasma values. (CLIA ID [id number]) Interpretation and review of laboratory results Abnormal [facility] POCT Glucoseon 06-17-2021 Test Performed by [facility], [address] LAB Test Performed by [facility], [address] LAB POCT GlucoseOrdered By: Jacquie Ornelas on 06-17-2021 Glucose [Mass/Vol] 179 mg/dL High 70 - 100 mg/dL [facility] Comment on above: Test performed by gl ucose meter. Results may be 10%-15% lower than serum/plasma values. (CLIA ID [id number]) Interpretation and review of laboratory results Abnormal [facility] Glucose,Bedsideon 06-16-2021 Glucose [Mass/Vol] 156 mg/dL High 70-100 [facility] Comment on above: Result Comment: Test performed by glucose meter. Results may be 10%-15% lower than serum/plasma values. (CLIA ID [id number]) Performed By: #### B GLU #### [facility] [address] [place] [address] Glucose [Mass/Vol] 127 mg/dL High 70-100 [facility] Comment on above: Result Comment: Test performed by glucose meter. Results may be 10%-15% lower than serum/plasma values. (CLIA ID [id number]) Performed By: #### T SH5, LIPD2, PSA3S, FT4M, HA1C2, HEMDF, CMP3 #### [facility] [address] [place] [address] Glucose [Mass/Vol] 168 mg/dL High 70-100 [facility] Comment on above: Result Comment: Test performed by glucose meter. Results may be 10%-15% lower than serum/plasma values. (CLIA ID [id number]) Performed By: #### T SH5, LIPD2, PSA3S, FT4M, HA1C2, HEMDF, CMP3 #### [facility] [address] [place] [address] OPERATIVE REPORTon Ordered by an unspecified provider. [facility] Op Noteon 06-16-2021 Op Note PATIENT: DENIS LARKIN ADMISSION DATE: 06/16/2021 SURGERY DATE: 06/16/2021 DATE OF : 1950 AGE: 70 ADMITTING PHYSICIAN: Calli Waters D.O. ATTENDING PHYSICIAN: Calli Waters D.O. DICTATING PHYSICIAN: Calli Waters D.O. OPERATIVE RECORD PROCEDURE: TOTAL THYROIDECTOMY. PREOPERATIVE DIAGNOSIS: Neoplasm of uncertain behavior, thyroid gland. POSTOPERATIVE DIAGNOSIS: Neoplasm of uncertain behavior, thyroid gland. ANESTHESIA: General. COMPLICATIONS: None. SPONGE COUNT: Correct. ESTIMATED BLOOD LOSS: Minimal. GROSS FINDINGS: This patient presents with bilateral thyroid nodules, each measuring approximately 3 cm in size. Aspiration biopsies were previously performed revealing a follicular lesion on one side and atypia on the alternate side. Genetic sequence testing was also performed with each nodule having 50% risk of malignancy. The patient therefore presents for total thyroidectomy. At the time of surgery as expected, there were 3 cm nodules identified, one being in the right thyroid lobe and one within the left thyroid lobe occupying the majority of each thyroid lobe itself. There is no gross cervical lymphadenopathy. DESCRIPTION OF PROCEDURE: The patient was taken to surgical suite and given a general anesthetic per the Anesthesia Department. The patient was intubated with a SNAPCARDtronic endotracheal tube. Each electrode was connected to channel 1 and channel 2 of the nerve integrity monitor pot. In addition, stimulating and grounding electrodes were placed over the sternal area and also connected to the nerve integrity monitor pot. Proper placement and positioning of each electrode was confirmed. A support was placed beneath the shoulders for extension of the cervical region. A planned incision line was demarcated with skin surface running 1 cm inferior to the cricoid cartilage in a curvilinear fashion within the relaxed skin tension line. This was locally infiltrated using 1% lidocaine with 1:100,000 epinephrine. Several moments were allowed for vasoconstriction. During this time, the neck was prepped with a Betadine solution. The patient was then draped in usual sterile fashion. A #15 scalpel blade was taken. The curvilinear incision was made through the skin and into the subcutaneous tissues. Hemostasis was assured with electrocautery unit. The platysma muscles incised also using the electrocautery unit. The midline plane was identified. The midline plane was divided vertically using electrocautery. The dissection was carried deeper until the strap muscles were identified. The midline plane and the strap muscles were identified. We began on the left side. The left sternohyoid and sternothyroid muscles were reflected laterally to expose the left thyroid lobe. Blunt dissection performed around the circumferential left thyroid lobe until the major vessels were identified. From this point going forward, all dissection followed a very predictable and reproducible fashion, specifically the tissue was bluntly dissected with a curved hemostat. The tissues were then directly stimulated with nerve stimulator. Once there was confirmation that there was no nerve involvement with the stimulator as well as with direct visualization, then the intervening soft tissue was then divided with the Harmonic scalpel. First, the inferior pole vessels were identified. These were then dissected. The middle thyroid vein was then identified and divided. The superior pole vessels were also identified and divided. The left thyroid lobe was then elevated. It was bluntly dissected from its deep aspect. The superior and inferior parathyroid glands were bluntly dissected from the posterior aspect leaving neurovascular pedicle intact. The recurrent laryngeal nerve was then identified, were running within the tracheoesophageal groove superiorly. This was preserved. The left thyroid lobe was then dissected from the suspensory ligaments and it was then divided in the midline of the thyroid isthmus and submitted for separate specimen. The right cervical strap muscles were then identified including the sternohyoid and sternothyroid muscles. These were reflected and reflected laterally to expose the right thyroid lobe. Blunt dissection performed to free the fascia from the left right thyroid lobe along its borders. In similar fashion, the curved hemostat was taken to bluntly dissected tissues. Nerve stimulation was performed and then the tissues were then divided with Harmonic scalpel after there was confirmation of no nerve involvement. Once again, we began in the inferior thyroid triangle as the inferior pole vessels were divided dissection then proceeded laterally and superiorly as the middle thyroid vein was identified. Finally, the right superior vessels were also identified and divided. The right thyroid (more content not included)... Normal [facility] POCT GlucoseOrdered By: Jojo Manjarrez on 06-16-2021 Glucose [Mass/Vol] 156 mg/dL High 70 - 100 mg/dL [facility] Work Phone: Comment on above: Test performed by gl ucose meter. Results may be 10%-15% lower than serum/plasma values. (CLIA ID [id number]) Interpretation and review of laboratory results Abnormal [facility] Work Phone: [facility] Work Phone: POCT Glucoseon 06-16-2021 Test Performed by [facility], [address] LAB Glucose [Mass/Vol] 127 mg/dL High 70 - 100 mg/dL [facility] Comment on above: Test performed by gl ucose meter. Results may be 10%-15% lower than serum/plasma values. (CLIA ID [id number]) Interpretation and review of laboratory results Abnormal [facility] Test Performed by [facility], [address] LAB [facility] Glucose [Mass/Vol] 168 mg/dL High 70 - 100 mg/dL [facility] Comment on above: Test performed by gl ucose meter. Results may be 10%-15% lower than serum/plasma values. (CLIA ID [id number]) Interpretation and review of laboratory results Abnormal [facility] Test Performed by [facility], [address] LAB [facility] Surgical Pathologyon 022 Surgical Pathology [id number] [facility] PATHOLOGY AND LABORATORY MEDICINE [address] [place] [phone] Fax - FINAL SURGICAL PATHOLOGY REPORT ___ NAME: DOMINGA LARKIN : 1950 70 Y M BILLING NO.: [id number] LOCATION: [facility] 149 1 PROCEDURE 06/16/2021 DATE: SURGEON: CALLI WATERS DO RECEIVED 06/16/2021 DATE: ATTENDING: CALLI WATERS DO REPORT DATE: 06/22/2021 COPIES TO: ___ DIAGNOSIS: A. LEFT THYROID, LOBECTOMY - PAPILLARY THYROID CARCINOMA B. RIGHT THYROID, LOBECTOMY - PAPILLARY THYROID CARCINOMA SPECIMEN Procedure: Total thyroidectomy TUMOR Tumor Focality: Multifocal Tumor Characteristics Tumor Site: Right lobe, Left lobe Tumor Size: Greatest Dimension (Centimeters) - 2.0 cm (left), 1.7cm (right) Histologic Type: Papillary carcinoma, follicular variant, encapsulated / well demarcated, non-invasive Angioinvasion (vascular invasion): Not identified Lymphatic Invasion: Not identified Extrathyroidal Extension: Not identified Margin Status: All margins negative for carcinoma REGIONAL LYMPH NODES Regional Lymph Node Status: Not applicable (no regional lymph nodes submitted or found) PATHOLOGIC STAGE CLASSIFICATION (pTNM, AJCC 8th Edition) Reporting of pT, pN, and (when applicable) pM categories is based on information available to the pathologist at the time the report is issued. As per the AJCC (Chapter 1, 8th Ed.) it is the managing physician's responsibility to establish the final pathologic stage based upon all pertinent information, including but potentially not limited to this pathology report. pT Category: pT1b pN Category: pN not assigned (no nodes submitted or found) SPEECH THERAPIST TUMOR BLOCK(S): A4, B4 SMT/SMT Intradepartmental Consultation: LEONELA FERNANDEZ M.D.; Signature> S DOMINGA AYALA M.D. ___ CLINICAL INFORMATION: Neoplasm uncertain behavior thyroid gland. SPECIMEN: (A) THYROIDECTOMY (B) THYROIDECTOMY , right ___ GROSS DESCRIPTION: A. Received in formalin labeled "left thyroid lobe" is a lobe of thyroid measuring 4 x 1.8 x 1.5 cm. The specimen weighs 7 g. Capsular surface is somewhat roughened; however, it appears intact. The area of the isthmus is identified and painted orange. The remaining capsular surface is painted blue. Upon transection of the specimen, the upper lobe is occupied by an unencapsulated, somewhat ill-defined, meléndez-ku nodular mass which measures 2.1 x 1.4 x approximately 1.2 cm. The parenchyma of the lower pole is reddish-ku and grossly unremarkable. Multiple manufacturing sales representative sections including the entire nodule are submitted in six cassettes. B. Received in formalin labeled "right thyroid lobe" is an apparent lobe of thyroid measuring 2.8 x 2 x 1.5 cm. The specimen weighs 6 g. The capsular surface is somewhat roughened; however, it appears mostly intact. The specimen cannot be oriented. Resection surfaces of the specimen are painted black. Upon transection of the specimen, cut surfaces consist entirely of an unencapsulated meléndez-ku nodule. No uninvolved thyroid parenchyma is identified. The specimen is sectioned and entirely submitted in six cassettes. JCK/LS3 Disclaimer: The following statement applies to all immunohistochemistry, in situ hybridization, molecular studies, and immunofluorescence testing. The use of one or more reagents in the above tests is regulated as an analyte specific reagent (ASR). These tests were developed and their performance characteristics determined by the clinical laboratories of [facility]. They have not been cleared by the US Food and Drug Administration (FDA). The FDA has determined that such clearance or approval is not necessary. All the above immunostains were performed on paraffin embedded tissue. Appropriate positive and negative controls (where applicable) were run in parallel with the patient's specimen; these controls showed expected staining pattern, with acceptable intensity of staining. Immunohistochemical assays have not been validated on decalcified tissues. Results should be interpreted with caution given the raised possibility of false negativity on decalcified specimens. Case reviewed at [place] [address] [place] [address]. DEPARTMENT OF PATHOLOGY AND LABORATORY MEDICINE [place], [place] [address] [email or web address] Normal [facility] CBC with Auto Differentialon 05-23-2021 Absolute Baso # 0.0 10*3/uL 0.0 - 0.2 10*3/uL [facility] Absolute Neut # 4.5 10*3/uL 1.8 - 7.0 10*3/uL [facility] Basophils/100 WBC (Bld) 0.7 % 0.0 - 2.0 % [facility] Eosinophils (Bld) [#/Vol] 0.1 10*3/uL 0.0 - 0.5 10*3/uL [facility] Eosinophils/100 WBC (Bld) 1.6 % 1.0 - 6.0 % [facility] Granulocytes/100 WBC (Bld) 68.5 % 40.0 - 80.0 % [facility] Hematocrit (Bld) [Volume fraction] 48.4 % 40.0 - 52.0 % [facility] Hemoglobin.gastrointest inal spec 1 Ql (Stl) 15.8 g/dL 13.0 - 18.0 g/dL [facility] Interpretation and review of laboratory results Abnormal [facility] Lymphocytes (Bld) [#/Vol] 1.4 10*3/uL 1.0 - 4.3 10*3/uL [facility] Lymphocytes/100 WBC (Bld) 21.7 % 20.0 - 40.0 % [facility] MCH (RBC) [Entitic mass] 28.5 pg 26.0 - 34.0 pg [facility] MCHC (RBC) [Mass/Vol] 32.6 % 32.0 - 36.0 % [facility] MCV (RBC) [Entitic vol] 87.2 fL 80.0 - 98.0 fL [facility] Monocytes (Bld) [#/Vol] 0.5 10*3/uL 0.0 - 0.8 10*3/uL [facility] Monocytes/100 WBC (Bld) 7.5 % 2.0 - 10.0 % [facility] Platelet distribution width (Bld) [Ratio] 15.2 % High 11.5 - 14.5 % [facility] Platelet mean volume (Bld) [Entitic vol] 7.8 fL 7.4 - 10.4 fL [facility] Platelets (Bld) [#/Vol] 168 10*3/uL 140 - 440 10*3/uL [facility] RBC (Bld) [#/Vol] 5.55 10*6/uL 4.40 - 5.9 0 10*6/uL [facility] WBC (Bld) [#/Vol] 6.6 10*3/uL 3.6 - 10.7 10*3/uL [facility] Test Performed by [facility], [address] [facility] Comp Metabolic Panelon 05-23 ALT [Catalytic activity/Vol] 19 U/L Normal 0-49 [facility] Comment on above: Result Comment: The ALT test is performed by an updated assay method. Please note that the reference intervals have been changed and are now sex specific. Performed By: #### T SH5, LIPD2, PSA3S, FT4M, HA1C2, HEMDF, CMP3 #### [facility] [address] [place] [address] Calcium [Mass/Vol] 9.3 mg/dL Normal 8.4-10.4 [facility] Comment on above: Performed By: #### T SH5, LIPD2, PSA3S, FT4M, HA1C2, HEMDF, CMP3 #### [facility] [address] [place] [address] ALP [Catalytic activity/Vol] 87 U/L Normal 38-126 [facility] Comment on above: Performed By: #### T SH5, LIPD2, PSA3S, FT4M, HA1C2, HEMDF, CMP3 #### [facility] [address] [place] [address] Anion gap [Moles/Vol] 6 mmol/L Normal 3-13 [facility] Comment on above: Performed By: #### T SH5, LIPD2, PSA3S, FT4M, HA1C2, HEMDF, CMP3 #### [facility] [address] [place] [address] AST [Catalytic activity/Vol] 32 U/L Normal 15-46 [facility] Comment on above: Performed By: #### T SH5, LIPD2, PSA3S, FT4M, HA1C2, HEMDF, CMP3 #### [facility] [address] [place] [address] Bilirubin [Mass/Vol] 0.6 mg/dL Normal 0.2-1.3 [facility] Comment on above: Performed By: #### T SH5, LIPD2, PSA3S, FT4M, HA1C2, HEMDF, CMP3 #### [facility] [address] [place] [address] CO2 [Moles/Vol] 28 mmol/L Normal 22-30 [facility] Comment on above: Performed By: #### T SH5, LIPD2, PSA3S, FT4M, HA1C2, HEMDF, CMP3 #### [facility] [address] [place] [address] Creatinine [Mass/Vol] 1.24 mg/dL Normal 0.52-1.25 [facility] Comment on above: Performed By: #### T SH5, LIPD2, PSA3S, FT4M, HA1C2, HEMDF, CMP3 #### [facility] [address] [place] [address] GFR/1.73 sq M.predicted among blacks MDRD (S/P/Bld) [Vol rate/Area] 68.6 mL/min/{1.73_m2} Normal >60 [facility] Comment on above: Performed By: #### T SH5, LIPD2, PSA3S, FT4M, HA1C2, HEMDF, CMP3 #### [facility] [address] [place] [address] GFR/1.73 sq M.predicted among non-blacks MDRD (S/P/Bld) [Vol rate/Area] 59.2 mL/min/{1.73_m2} Abnormal >60 [facility] Comment on above: Result Comment: KDIG O guidelines provide the following GFR categories: Stage GFR(ml/min/1.73 m2) Terms G1 >=90 Normal or high G2 60-89 Mildly decreased* G3a 45-59 Mildly to moderately decreased G3b 30-44 Moderately to severely decreased G4 15-29 Severely decreased G5 <15 Kidney failure *Relative to young adult level. In the absence of evidence of kidney damage, neither GFR category G1 nor G2 fulfill the criteria for CKD. The CKD-EPI equation is validated in individuals 18 years of age and older. Currently the best equation for estimating glomerular filtration rate (GFR) from serum creatinine in children is the Bedside Simeon equation. It is less accurate in patients with extremes of muscle mass, restriction of dietary protein, ingestion of creatine, extra-renal metabolism of creatinine, or treatment with medications that affect renal tubular creatinine secretion. Performed By: #### T SH5, LIPD2, PSA3S, FT4M, HA1C2, HEMDF, CMP3 #### [facility] [address] [place] [address] Glucose [Mass/Vol] 72 mg/dL Normal 70-100 [facility] Comment on above: Performed By: #### T SH5, LIPD2, PSA3S, FT4M, HA1C2, HEMDF, CMP3 #### [facility] [address] [place] [address] Protein [Mass/Vol] 6.5 g/dL Normal 6.3-8.2 [facility] Comment on above: Performed By: #### T SH5, LIPD2, PSA3S, FT4M, HA1C2, HEMDF, CMP3 #### [facility] [address] [place] [address] Urea nitrogen [Mass/Vol] 13 mg/dL Normal 7-17 [facility] Comment on above: Performed By: #### T SH5, LIPD2, PSA3S, FT4M, HA1C2, HEMDF, CMP3 #### [facility] [address] [place] [address] Potassium [Moles/Vol] 4.5 mmol/L Normal 3.5-5.1 [facility] Comment on above: Performed By: #### T SH5, LIPD2, PSA3S, FT4M, HA1C2, HEMDF, CMP3 #### [facility] [address] [place] [address] Albumin [Mass/Vol] 3.9 g/dL Normal 3.5-5.0 [facility] Comment on above: Performed By: #### T SH5, LIPD2, PSA3S, FT4M, HA1C2, HEMDF, CMP3 #### [facility] [address] [place] [address] Chloride [Moles/Vol] 107 mmol/L Normal 98-107 [facility] Comment on above: Performed By: #### T SH5, LIPD2, PSA3S, FT4M, HA1C2, HEMDF, CMP3 #### [facility] [address] [place] [address] Sodium [Moles/Vol] 141 mmol/L Normal 135-145 [facility] Comment on above: Performed By: #### T SH5, LIPD2, PSA3S, FT4M, HA1C2, HEMDF, CMP3 #### [facility] [address] [place] [address] Comprehensive Metabolic Pane jim 05-23-2021 Albumin [Mass/Vol] 3.9 g/dL 3.5 - 5.0 g/dL [facility] ALP (Bld) [Catalytic activity/Vol] 87 U/L 38 - 126 U/L [facility] ALT [Catalytic activity/Vol] 19 U/L 0 - 49 U/L [facility] Comment on above: The ALT test is perf ormed by an updated assay method. Please note that the reference intervals have been changed and are now sex specific. Anion gap [Moles/Vol] 6 mmol/L 3 - 13 mmol/L [facility] AST [Catalytic activity/Vol] 32 U/L 15 - 46 U/L [facility] Bilirubin [Mass/Vol] 0.6 mg/dL 0.2 - 1 .3 mg/dL [facility] Calcium [Mass/Vol] 9.3 mg/dL 8.4 - 10. 4 mg/dL [facility] Chloride [Moles/Vol] 107 mmol/L 98 - 10 7 mmol/L [facility] CO2 [Moles/Vol] 28 mmol/L 22 - 30 mmol/L [facility] Creatinine [Mass/Vol] 1.24 mg/dL 0.52 - 1.25 mg/dL [facility] EGFR IF NonAfrican [place]er 59.2 mL/min Abnormal >60 [facility] Comment on above: KDIGO guidelines pro vide the following GFR categories: Stage GFR(ml/min/1.73 m2) Terms G1 >=90 Normal or high G2 60-89 Mildly decreased* G3a 45-59 Mildly to moderately decreased G3b 30-44 Moderately to severely decreased G4 15-29 Severely decreased G5 <15 Kidney failure *Relative to young adult level. In the absence of evidence of kidney damage, neither GFR category G1 nor G2 fulfill the criteria for CKD. The CKD-EPI equation is validated in individuals 18 years of age and older. Currently the best equation for estimating glomerular filtration rate (GFR) from serum creatinine in children is the Bedside Simeon equation. It is less accurate in patients with extremes of muscle mass, restriction of dietary protein, ingestion of creatine, extra-renal metabolism of creatinine, or treatment with medications that affect renal tubular creatinine secretion. Free PSA/Total PSA [Mass fraction] 6.5 g/dL 6.3 - 8.2 g/dL [facility] GFR/1.73 sq M.predicted among blacks MDRD (S/P/Bld) [Vol rate/Area] 68.6 mL/min/{1.73_m2} >60 [facility] Glucose [Mass/Vol] 72 mg/dL 70 - 100 mg/dL [facility] Potassium [Moles/Vol] 4.5 mmol/L 3.5 - 5.1 mmol/L [facility] Sodium [Moles/Vol] 141 mmol/L 135 - 145 mmol/L [facility] Urea nitrogen (BldV) [Mass/Vol] 13 mg/dL 7 - 17 mg/dL [facility] Free T4on 05-23-2021 Free T4 [Mass/Vol] 1.01 ng/dL Normal 0.78-2.19 [facility] Comment on above: Performed By: #### T SH5, LIPD2, PSA3S, FT4M, HA1C2, HEMDF, CMP3 #### [facility] [address] [place] [address] Hemoglobin A1Con 05-23-2021 Glucose [Mass/Vol] 183 mg/dL Normal [facility] Comment on above: Performed By: #### T SH5, LIPD2, PSA3S, FT4M, HA1C2, HEMDF, CMP3 #### [facility] [address] [place] [address] HbA1c (Bld) [Mass fraction] 8.0 % Abnormal [facility] Comment on above: Result Comment: Norm al less than 5.7% Prediabetes 5.7% to 6.4% Diabetes 6.5% or higher --HgbA1C levels may not be accurate in patients who have renal disease, received recent blood transfusions, are anemic, or who have dyshemoglobinemia. Performed By: #### T SH5, LIPD2, PSA3S, FT4M, HA1C2, HEMDF, CMP3 #### [facility] [address] [place] [address] eAG 183 mg/dL [facility] HbA1c (Bld) [Mass fraction] 8.0 % Abnormal [facility] Comment on above: Normal less than 5.7 % Prediabetes 5.7% to 6.4% Diabetes 6.5% or higher --HgbA1C levels may not be accurate in patients who have renal disease, received recent blood transfusions, are anemic, or who have dyshemoglobinemia. Hemogram w/ Autodiffon 05-23 Abs Baso Cnt 0.0 10*3/uL Normal 0.0-0.2 [facility] Comment on above: Performed By: #### T SH5, LIPD2, PSA3S, FT4M, HA1C2, HEMDF, CMP3 #### [facility] [address] [place] [address] Abs Neutrophile Cnt 4.5 10*3/uL Normal 1.8-7.0 [facility] Comment on above: Performed By: #### T SH5, LIPD2, PSA3S, FT4M, HA1C2, HEMDF, CMP3 #### [facility] [address] [place] [address] Basophils/100 WBC (Bld) 0.7 % Normal 0.0-2.0 [facility] Comment on above: Performed By: #### T SH5, LIPD2, PSA3S, FT4M, HA1C2, HEMDF, CMP3 #### [facility] [address] [place] [address] Eosinophils (Bld) [#/Vol] 0.1 10*3/uL Normal 0.0-0.5 [facility] Comment on above: Performed By: #### T SH5, LIPD2, PSA3S, FT4M, HA1C2, HEMDF, CMP3 #### [facility] [address] [place] [address] Eosinophils/100 WBC (Bld) 1.6 % Normal 1.0-6.0 [facility] Comment on above: Performed By: #### T SH5, LIPD2, PSA3S, FT4M, HA1C2, HEMDF, CMP3 #### [facility] [address] [place] [address] Erythrocyte distribution width (RBC) [Ratio] 15.2 % High 11.5-14.5 [facility] Comment on above: Performed By: #### T SH5, LIPD2, PSA3S, FT4M, HA1C2, HEMDF, CMP3 #### [facility] [address] [place] [address] Granulocytes/100 WBC (Bld) 68.5 % Normal 40.0-80.0 [facility] Comment on above: Performed By: #### T SH5, LIPD2, PSA3S, FT4M, HA1C2, HEMDF, CMP3 #### [facility] [address] [place] [address] Hematocrit (Bld) [Volume fraction] 48.4 % Normal 40.0-52.0 [facility] Comment on above: Performed By: #### T SH5, LIPD2, PSA3S, FT4M, HA1C2, HEMDF, CMP3 #### [facility] [address] [place] [address] Hemoglobin (Bld) [Mass/Vol] 15.8 g/dL Normal 13.0-18.0 [facility] Comment on above: Performed By: #### T SH5, LIPD2, PSA3S, FT4M, HA1C2, HEMDF, CMP3 #### [address] [place] [address] Lymphocytes (Bld) [#/Vol] 1.4 10*3/uL Normal 1.0-4.3 [facility] Comment on above: Performed By: #### T SH5, LIPD2, PSA3S, FT4M, HA1C2, HEMDF, CMP3 #### [address] [place] [address] Lymphocytes/100 WBC (Bld) 21.7 % Normal 20.0-40.0 [facility] Comment on above: Performed By: #### T SH5, LIPD2, PSA3S, FT4M, HA1C2, HEMDF, CMP3 #### [facility] [address] [place] [address] MCH (RBC) [Entitic mass] 28.5 pg Normal 26.0-34.0 [facility] Comment on above: Performed By: #### T SH5, LIPD2, PSA3S, FT4M, HA1C2, HEMDF, CMP3 #### [facility] [address] [place] [address] MCHC 32.6 % Normal 32.0-36.0 [facility] Comment on above: Performed By: #### T SH5, LIPD2, PSA3S, FT4M, HA1C2, HEMDF, CMP3 #### [facility] [address] [place] [address] MCV (RBC) [Entitic vol] 87.2 fL Normal 80.0-98.0 [facility] Comment on above: Performed By: #### T SH5, LIPD2, PSA3S, FT4M, HA1C2, HEMDF, CMP3 #### [facility] [address] [place] [address] Monocytes (Bld) [#/Vol] 0.5 10*3/uL Normal 0.0-0.8 [facility] Comment on above: Performed By: #### T SH5, LIPD2, PSA3S, FT4M, HA1C2, HEMDF, CMP3 #### [facility] [address] [place] [address] Monocytes/100 WBC (Bld) 7.5 % Normal 2.0-10.0 [facility] [place] Comment on above: Performed By: #### T SH5, LIPD2, PSA3S, FT4M, HA1C2, HEMDF, CMP3 #### [facility] [address] [place] [address] Platelet mean volume (Bld) [Entitic vol] 7.8 fL Normal 7.4-10.4 [facility] Comment on above: Performed By: #### T SH5, LIPD2, PSA3S, FT4M, HA1C2, HEMDF, CMP3 #### [facility] [address] [place] [address] Platelets (Bld) [#/Vol] 168 10*3/uL Normal 140-440 [facility] Comment on above: Performed By: #### T SH5, LIPD2, PSA3S, FT4M, HA1C2, HEMDF, CMP3 #### [facility] [address] [place] [address] RBC (Bld) [#/Vol] 5.55 10*6/uL Normal 4.40-5.90 [facility] Comment on above: Performed By: #### T SH5, LIPD2, PSA3S, FT4M, HA1C2, HEMDF, CMP3 #### [facility] [address] [place] [address] WBC (Bld) [#/Vol] 6.6 10*3/uL Normal 3.6-10.7 [facility] Comment on above: Performed By: #### T SH5, LIPD2, PSA3S, FT4M, HA1C2, HEMDF, CMP3 #### [facility] [address] [place] [address] Lipid Panelon 05-23-2021 Chol/HDL 4 Normal [facility] Comment on above: Result Comment: Ref Range: < 3 Low Risk for CHD 3-6 Mod Risk for CHD > 6 High Risk for CHD Performed By: #### T SH5, LIPD2, PSA3S, FT4M, HA1C2, HEMDF, CMP3 #### [facility] [address] [place] [address] Cholesterol in HDL [Mass/Vol] 40 mg/dL Normal 40-60 [facility] Comment on above: Performed By: #### T SH5, LIPD2, PSA3S, FT4M, HA1C2, HEMDF, CMP3 #### [facility] [address] [place] [address] Low Density Lipoprotein 68 mg/dL Normal <100 [facility] [place] Comment on above: Performed By: #### T SH5, LIPD2, PSA3S, FT4M, HA1C2, HEMDF, CMP3 #### [facility] [address] [place] [address] Triglyceride [Mass/Vol] 241 mg/dL Abnormal <150 [facility] [place] Comment on above: Performed By: #### T SH5, LIPD2, PSA3S, FT4M, HA1C2, HEMDF, CMP3 #### [facility] [address] [place] [address] Cholesterol [Mass/Vol] 156 mg/dL Normal < 200 [facility] Comment on above: Performed By: #### T SH5, LIPD2, PSA3S, FT4M, HA1C2, HEMDF, CMP3 #### [facility] [address] [place] [address] Cholesterol [Mass/Vol] 156 mg/dL <200 [facility] Cholesterol in HDL [Mass/Vol] 40 mg/dL 40 - 60 mg/dL [facility] Cholesterol in LDL [Mass/Vol] 68 mg/dL <100 [facility] Cholesterol.total/Deepti sterol in HDL [Mass ratio] 4 {ratio} [facility] Comment on above: Ref Range: < 3 Low Risk for CHD 3-6 Mod Risk for CHD > 6 High Risk for CHD Triglyceride [Mass/Vol] 241 mg/dL Abnormal <150 [facility] No Panel Informationon 05-23 Test Performed by [facility], [address] , [address] [facility] Interpretation and review of laboratory results Abnormal [facility] Test Performed by [facility], [address] , [address] [facility] Prostate Specific Ag Screeno n 05-23-2021 Prostate Specific Ag Screen 2.434 ng/mL Normal < 4.000 [facility] Comment on above: Result Comment: Test ing performed on the [employer] using an immunometric methodology. Results obtained by different methods should not be used interchangeably. Performed By: #### T SH5, LIPD2, PSA3S, FT4M, HA1C2, HEMDF, CMP3 #### [facility] [address] [place] [address] T4, Freeon 05-23-2021 Free T4 [Mass/Vol] 1.01 ng/dL 0.78 - 2. 19 ng/dL [facility] Test Performed by [facility], [address] , [address] LAB [facility] TSHon 05-23-2021 TSH Qn 1.811 u[IU]/mL 0.465 - 4.680 u[IU]/mL [facility] Thyroid Stim. Hormoneon 04-26 Thyroid Stim. Hormone 1.811 u[IU]/mL Normal 0.465-4.68 0 [facility] Comment on above: Performed By: #### T SH5, LIPD2, PSA3S, FT4M, HA1C2, HEMDF, CMP3 #### [facility] [address] [place] [address] CBC Auto DifferentialOrdered By: Pillo Ortiz on 11-30-2020 Absolute Baso # 0.0 10*3/uL 0.0 - 0.2 10*3/uL [facility] Work Phone: 1 Absolute Neut # 3.4 10*3/uL 1.8 - 7.0 10*3/uL [facility] Work Phone: Basophils/100 WBC (Bld) 0.5 % 0.0 - 2.0 % [facility] Work Phone: 1 Eosinophils (Bld) [#/Vol] 0.1 10*3/uL 0.0 - 0.5 10*3/uL [facility] Work Phone: Eosinophils/100 WBC (Bld) 2.0 % 1.0 - 6.0 % [employer] Work Phone: Granulocytes/100 WBC (Bld) 61.0 % 40.0 - 80.0 % [facility] Work Phone: Hematocrit (Bld) [Volume fraction] 46.7 % 40.0 - 52.0 % [facility] Work Phone: Hemoglobin.gastrointest inal spec 1 Ql (Stl) 15.0 g/dL 13.0 - 18.0 g/dL [facility] Work Phone: Interpretation and review of laboratory results Abnormal [employer] Work Phone: Lymphocytes (Bld) [#/Vol] 1.5 10*3/uL 1.0 - 4.3 10*3/uL [facility] Work Phone: Lymphocytes/100 WBC (Bld) 25.9 % 20.0 - 40.0 % [facility] Work Phone: MCH (RBC) [Entitic mass] 27.7 pg 26.0 - 34.0 pg [facility] Work Phone: MCHC (RBC) [Mass/Vol] 32.2 % 32.0 - 36.0 % [facility] Work Phone: MCV (RBC) [Entitic vol] 86.1 fL 80.0 - 98.0 fL [employer] Work Phone: 1 22 Monocytes (Bld) [#/Vol] 0.6 10*3/uL 0.0 - 0.8 10*3/uL [employer] Work Phone: 1) 22 Monocytes/100 WBC (Bld) 10.6 % High 2.0 - 10.0 % [facility] Work Phone: Platelet distribution width (Bld) [Ratio] 15.1 % High 11.5 - 14.5 % [employer] Work Phone: 1 Platelet mean volume (Bld) [Entitic vol] 7.9 fL 7.4 - 10.4 fL [employer] Work Phone: 1() Platelets (Bld) [#/Vol] 163 10*3/uL 140 - 440 10*3/uL [employer] Work Phone: ) RBC (Bld) [#/Vol] 5.42 10*6/uL 4.40 - 5.9 0 10*6/uL [employer] Work Phone: 1) 22 WBC (Bld) [#/Vol] 5.6 10*3/uL 3.6 - 10.7 10*3/uL [employer] Work Phone: 1 Test Performed by [facility], [address] , [place] [id number] Work Phone: 1 [facility] Work Phone: Creatinine, Random UrineOrde red By: Pillo Ortiz on 11-30-2020 Creatinine (U) [Mass/Vol] 88.4 mg/dL No Range [facility] Work Phone: 1 22 Creatinine, Ur Randomon 10-0 Creatinine, Ur Random 88.4 mg/dL Normal No Range [facility] Comment on above: Performed By: #### T SH5, LIPD2, PSA3S, FT4M, HA1C2, HEMDF, CMP3 #### [facility] [employer] [facility] [address] [place] [address] Hemogram w/ Autodiffon 11-30 Abs Baso Cnt 0.0 10*3/uL Normal 0.0-0.2 [facility] Comment on above: Performed By: #### T SH5, LIPD2, PSA3S, FT4M, HA1C2, HEMDF, CMP3 #### [facility] [address] [place] [address] Abs Neutrophile Cnt 3.4 10*3/uL Normal 1.8-7.0 [facility] Comment on above: Performed By: #### T SH5, LIPD2, PSA3S, FT4M, HA1C2, HEMDF, CMP3 #### [facility] [address] [place] [address] Basophils/100 WBC (Bld) 0.5 % Normal 0.0-2.0 [facility] Comment on above: Performed By: #### T SH5, LIPD2, PSA3S, FT4M, HA1C2, HEMDF, CMP3 #### [facility] [address] [place] [address] Eosinophils (Bld) [#/Vol] 0.1 10*3/uL Normal 0.0-0.5 [facility] Comment on above: Performed By: #### T SH5, LIPD2, PSA3S, FT4M, HA1C2, HEMDF, CMP3 #### [facility] [address] [place] [address] Eosinophils/100 WBC (Bld) 2.0 % Normal 1.0-6.0 [facility] Comment on above: Performed By: #### T SH5, LIPD2, PSA3S, FT4M, HA1C2, HEMDF, CMP3 #### [facility] [address] [place] [address] Erythrocyte distribution width (RBC) [Ratio] 15.1 % High 11.5-14.5 [facility] Comment on above: Performed By: #### T SH5, LIPD2, PSA3S, FT4M, HA1C2, HEMDF, CMP3 #### [facility] [address] [place] [address] Granulocytes/100 WBC (Bld) 61.0 % Normal 40.0-80.0 [facility] Comment on above: Performed By: #### T SH5, LIPD2, PSA3S, FT4M, HA1C2, HEMDF, CMP3 #### [facility] [address] [place] [address] Hematocrit (Bld) [Volume fraction] 46.7 % Normal 40.0-52.0 [facility] Comment on above: Performed By: #### T SH5, LIPD2, PSA3S, FT4M, HA1C2, HEMDF, CMP3 #### [facility] [address] [place] [address] Hemoglobin (Bld) [Mass/Vol] 15.0 g/dL Normal 13.0-18.0 [facility] Comment on above: Performed By: #### T SH5, LIPD2, PSA3S, FT4M, HA1C2, HEMDF, CMP3 #### [facility] [address] [place] [address] Lymphocytes (Bld) [#/Vol] 1.5 10*3/uL Normal 1.0-4.3 [facility] Comment on above: Performed By: #### T SH5, LIPD2, PSA3S, FT4M, HA1C2, HEMDF, CMP3 #### [facility] [address] [place] [address] Lymphocytes/100 WBC (Bld) 25.9 % Normal 20.0-40.0 [facility] Comment on above: Performed By: #### T SH5, LIPD2, PSA3S, FT4M, HA1C2, HEMDF, CMP3 #### [facility] [address] [place] [address] MCH (RBC) [Entitic mass] 27.7 pg Normal 26.0-34.0 [facility] Comment on above: Performed By: #### T SH5, LIPD2, PSA3S, FT4M, HA1C2, HEMDF, CMP3 #### [facility] [address] [place] [address] MCHC 32.2 % Normal 32.0-36.0 [facility] Comment on above: Performed By: #### T SH5, LIPD2, PSA3S, FT4M, HA1C2, HEMDF, CMP3 #### [facility] [address] [place] [address] MCV (RBC) [Entitic vol] 86.1 fL Normal 80.0-98.0 [facility] [place] Comment on above: Performed By: #### T SH5, LIPD2, PSA3S, FT4M, HA1C2, HEMDF, CMP3 #### [facility] [address] [place] [address] Monocytes (Bld) [#/Vol] 0.6 10*3/uL Normal 0.0-0.8 [facility] Comment on above: Performed By: #### T SH5, LIPD2, PSA3S, FT4M, HA1C2, HEMDF, CMP3 #### [facility] [address] [place] [address] Monocytes/100 WBC (Bld) 10.6 % High 2.0-10.0 [facility] [place] Comment on above: Performed By: #### T SH5, LIPD2, PSA3S, FT4M, HA1C2, HEMDF, CMP3 #### [facility] [address] [place] [address] Platelet mean volume (Bld) [Entitic vol] 7.9 fL Normal 7.4-10.4 [facility] Comment on above: Performed By: #### T SH5, LIPD2, PSA3S, FT4M, HA1C2, HEMDF, CMP3 #### [facility] [address] [place] [address] Platelets (Bld) [#/Vol] 163 10*3/uL Normal 140-440 [facility] Comment on above: Performed By: #### T SH5, LIPD2, PSA3S, FT4M, HA1C2, HEMDF, CMP3 #### [facility] [address] [place] [address] RBC (Bld) [#/Vol] 5.42 10*6/uL Normal 4.40-5.90 [facility] Comment on above: Performed By: #### T SH5, LIPD2, PSA3S, FT4M, HA1C2, HEMDF, CMP3 #### [facility] [address] [place] [address] WBC (Bld) [#/Vol] 5.6 10*3/uL Normal 3.6-10.7 [facility] Comment on above: Performed By: #### T SH5, LIPD2, PSA3S, FT4M, HA1C2, HEMDF, CMP3 #### [facility] [address] [place] [address] No Panel InformationOrdered By: Pillo Ortiz on 11-30-2020 Test Performed by [facility], [address] , [place], [place] [address] [facility] Work Phone: [phone] [facility] Work Phone: 1 PTH, Intacton 11-30-2020 PTH, Intact 41.2 pg/mL Normal 8.0-54.0 [facility] Comment on above: Performed By: #### T SH5, LIPD2, PSA3S, FT4M, HA1C2, HEMDF, CMP3 #### [facility] [address] [place] [address] PTH, IntactOrdered By: Jorge Silva on 11-30-2020 Pth Intact 41.2 pg/mL 8.0 - 54.0 pg/mL [facility] Work Phone: [phone] Test Performed by [facility], [address] [place], [place] [id number] [place], [place] [id number] Work Phone: 1 [facility] Work Phone: 1 Protein, Ur Randomon 021 Protein, Ur Random 9 mg/dL Normal No Range [facility] Comment on above: Performed By: #### T SH5, LIPD2, PSA3S, FT4M, HA1C2, HEMDF, CMP3 #### [facility] [address] [place] [address] Protein, urine, randomOrdere d By: Pillo Ortiz on 11-30-2020 Protein (U) [Mass/Vol] 9 mg/dL No Range [facility] Work Phone: Vit D 25-OH, Totalon 021 Vit D 25-OH, Total 49 ng/mL Normal 30-100 [facility] Comment on above: Result Comment: Ther apy is based on measurement of Total 25-OHD with the following classification levels: Less than 20 ng/mL: Indicative of Vit D deficiency 20-30 ng/mL: Suggests Vit D insufficiency Optimal: Greater than or equal to 30 ng/mL Test performed by [employer], measuring Total Vitamin D, not individual fractions. Performed By: #### T SH5, LIPD2, PSA3S, FT4M, HA1C2, HEMDF, CMP3 #### [facility] [employer] [facility] [address] [place] [address] Vitamin D 25 HydroxyOrdered By: Pillo Ortiz on 11-30-2020 Vit D, 25-Hydroxy 49 ng/mL 30 - 100 ng/mL [facility] Work Phone: Comment on above: Therapy is based on measurement of Total 25-OHD with the following classification levels: Less than 20 ng/mL: Indicative of Vit D deficiency 20-30 ng/mL: Suggests Vit D insufficiency Optimal: Greater than or equal to 30 ng/mL Test performed by [employer], measuring Total Vitamin D, not individual fractions. Test Performed by [facility], [address] [place], [place] [address] [facility] Work Phone: [facility] Work Phone: CNTHERAPYon 10-05-2020 CNTHERAPY OT/PT/Speech Visit (PTMCRM) DOMINGA LARKIN ([id number]) 1950 M Date Time Provider Department 8/11/21 9:30 AM JUSTICECAMILA Lambert PTMCRM Date Time Provider Department Center 10/05/2020 9:30 AM [id number] BLACKWELL [facility] Reason for Visit: PT Discharge [752] Primary Visit Diagnosis:Sacroiliitis (HCC) [M46.1] Other Visit Diagnoses:Neurogenic claudication [M48.062] Lumbar spondylosis [M47.816] Allergies As of Date: 10/05/2020 (Not on File) Date Reviewed: Never Reviewed Progress Notes: Camila Samson, PT 10/05/2020 10:49 AM Signed Episode Visit Count: 12 Therapist That Will Oversee The Plan Of Care: Camila Samson Start of Care Date: 08/02/20 Onset Date: 08/13/19 Plan of Care Certification Date: 09/05/20 Next Certification Due Date: 10/07/20 Patient Identified by Name and Date of : Yes REHABILITATION AND SPORTS THERAPY PHYSICAL THERAPY DISCONTINUANCE OF CARE PLAN OF CARE UPDATE: Assessment: Dominga Larkin is discontinued from Physical Therapy services due to Patient/Client declining further intervention.. Patient was seen for 12 visits from Start of Care Date: 08/02/20 to 10/05/2020 and treatment included: Therapeutic exercise, Aquatic PT and Patient/Family/Caregive r Education. Patient reports that he is feeling better overall and does not want to continue with PT due to financial reasons. He demonstrates increased fluidity of movement with transfers and gait. He demonstrates improved leg strength and postural awareness. He is attempting to get into the pool a couple of times per week. He is inquiring about doing some of the aquatic exercises on land. Informed patient that he can try to do some of the exercises on land as he tolerates. He continues to have difficulty with prolonged walking. Recently, his Lipitor medication has been adjusted and they are waiting to see if this helps his leg cramping. He does note not having to sit as much when he is walking. Improved flexibility noted. Patient has been given written HEP for aquatic exercises. See below for updated goal status. Patient to continue with exercises on his own at this time per his request. Continued improvement expected with regular performance of HEP. Goals for Episode of Care: created on 08/02/20 through 10/07/20: Updated 09/05/20; 10/05/20: Restore pain-free lumbar ROM to WNL for flexion and B rotation to allow for increased ease with functional activities (Progressing- met for rotation. Continues to have slight restriction for flexion) Stand / Walk 45-60 minutes without pain/symptoms (Not met- Maintain proper sitting posture throughout session (MET) Knowledgeable regarding prophylaxis. (Progressing- needs to be able to get into the pool more frequently) Patient will increase strength of hip flexors and extensors to 4+/5 to allow for increase tolerance for walking/yardwork. (Progressing- remains limited for hip extension) Patient will increase flexibility of B hip flexors and hamstrings to WNL to improve mechanics and decrease pain. (Not met- continues to have a lot of tightness in hip flexors) Aquatic Goal: Patient will be independent with aquatic program and transition to a community pool. (MET-has been coming to PT 2x/week) Improve postural awareness in sitting/standing to decrease strain on lower back. (MET- more upright posture noted) Patient demonstrates 5x sit<-->stand within norms for patients stated age group demonstrating increased strength and balance. (Not met- no change) Patient Goals: "Im not really sure"; rebuild mm mass in L shoulder blade SUBJECTIVE: Patient Reason for Visit: Patient reports that his significant other feels like he is doing better. Patient reports that he got a bill from the [facility] that he cannot pay at this time. He reports that he is going to cut the water therapy short because of his financial status. He reports that the aquatic PATCH MACHINE OPERATOR gave him his exercises in written format so that he can continue them. He reports feeling better overall.He is weaning down off of Lipitor to see if that will help his leg cramping. He reports that he feels like he is walking better. Pain: Pain Pain Level: 0 Pain Location: Sacrum Additional Pain Information : Location 2 Pain Level 2: 8 Pain Location 2: Leg - Right Description 2: Sore Frequency 2: Intermittent Post Treatment Pain Post Treatment Pain Level: No Change Post Treatment Pain Location: Sacrum PROMIS Scales T-scores: mean of general population = 50. 5 points is clinically meaningfully difference Percentiles provide an indication of how the patient's score ranks in relation to the general population. Higher percentile rankings indicate better function/quality of life. 50th percentile is the average of the general population and indicates half of respondent (more content not included)... [facility] CNPNon 09-30-2020 CNPN Telephone (PTMCRM) DOMINGA LARKIN ([id number]) 1950 M Date Time Provider Department 09/30/20 CAMILA SAMSON PTMCRM During your visit today, we recorded the following information about you: Hazel Navarro Data Pss 09/30/2020 12:19 PM Signed Left patient a message Pool is not ready to be open on 10-02-20 Need to cancel This appointment Allergies As of Date: 09/30/2020 (Not on File) Date Reviewed: Never Reviewed Reason for Visit: cancel appt. [Other] Problem List As Of Date 09/30/2020 Noted Resolved Sacroiliitis (HCC) [M46.1] 08/02/2020 Neurogenic claudication [M48.062] 08/02/2020 Lumbar spondylosis [M47.816] 08/02/2020 Encounter Status:Closed by SERA FOREMAN on 10/06/20 [facility] CNTHERAPYon 09-22-2020 CNTHERAPY OT/PT/Speech Visit (PTMCRM) DOMINGA LARKIN ([id number]) 1950 M Date Time Provider Department 09/22/20 12:30 PM JOHN HERRERA PTMCRM Date Time Provider Department Center 09/22/2020 12:30 PM [id number], LAURA PTMM [facility] Reason for Visit: Physical Therapy [503] Primary Visit Diagnosis:Sacroiliitis (HCC) [M46.1] Other Visit Diagnoses:Neurogenic claudication [M48.062] Lumbar spondylosis [M47.816] Allergies As of Date: 09/22/2020 (Not on File) Date Reviewed: Never Reviewed Progress Notes: John Herrera PTA 09/22/2020 2:41 PM Signed Episode Visit Count: 11 Therapist That Will Oversee The Plan Of Care: Camila Samson Start of Care Date: 08/02/20 Onset Date: 08/13/19 Plan of Care Certification Date: 09/05/20 Next Certification Due Date: 10/07/20 Patient Identified by Name and Date of : Yes REHABILITATION AND SPORTS THERAPY PHYSICAL THERAPY TREATMENT NOTE ASSESSMENT: Dominga Lewis Trae demonstrated increased hip and lumbar mobility. Less hand support pool wall with Sl squat and heel raise. PLAN FOR NEXT VISIT: continue SL balance SUBJECTIVE: Patient Reason for Visit: Pt reports right leg sore from test earlier this week. Pain intermittnet when walking. No sacrum pain today. Pain: Pain Pain Level: 0 Pain Location: Sacrum Additional Pain Information : Location 2 Pain Level 2: 10 Pain Location 2: Leg - Right Description 2: Aching Frequency 2: Intermittent Detailed Pain Score: (walking) Post Treatment Pain Post Treatment Pain Level: No Change OBJECTIVE MEASURES WITH LEVEL OF FUNCTION: Patient ambulates to/from locker room without device. Patient enters?/exited the pool via stairs, SBA. Patient accompanied by clinician in water throughout session, SBA unless otherwise noted TREATMENT: Aquatic Therapy: Footwear on pool deck pre-treatment: Yes, patient wearing appropriate footwear and appeared safe on pool deck Footwear on pool deck post-treatment: Yes, patient wearing appropriate footwear and appeared safe on pool deck Aquatic Therapy ([id number]): 1 1: See note below for exercises performed ?WATER DEPTH 3'6" -?4'0" (paddle level 5) - Giant dynamic steps forward/ retro,?shoulder alt flex/ext x 2 length each - Giant dynamic side step right/left,?B shoulder add/abd x 1 length - April with rows x 2 ?? WATER DEPTH 3'9"?-4'0" (light)(cuff 1) -Static stand, (2) kickboard push down x 15, r/L x 15 each -R/L trunk rotation with hands resting on kickboard, x15 each direction? -B horizontal shoulder abduction, paddle #5 x 15 ? ??WATER DEPTH 3'6"?(cuff 1) -R/L hamstring stretch 2 x?30 seconds each, back to pool wall ? -R/L hamstring curls x?15?each, 2 hand support at pool wall -Clockwise/counterclock rubio 'hoola hoop', tolerable range,?no?hands support at pool wall, 1 x 15 each direction? -SL R/L squat x?20 -hip R/L flexion/extension, abduction/adduction x 15 -LAQ R/L x 15?each -SL R/L heel raise 2 x 10 -SL balance Right/left 20 sec hold, 30 sec hold , intermittent UE support ? ??Skilled Intervention: Patient was educated in proper exercise technique and purpose for exercises. Skilled judgment was provided in selection of appropriate interventions. Skilled judgment used to assess appropriate program for balance and coordination activity. Patient education: ?Proper hydration following aquatic session Advised to rest as needed upon exiting pool [facility] to full weight bearing status Patient with good understanding. Billing: Aquatic Therapy Treatment Minutes: 40 Total Treatment Time Minutes (timed and untimed codes) : 43 John Herrera PTA [facility] CNTHERAPYon 09-19-2020 CNTHERAPY OT/PT/Speech Visit (PTMCRM) DOMINGA LARKIN ([id number]) 1950 M Date Time Provider Department 09/19/20 8:15 AM SHARON JOHN BLACKWELL Date Time Provider Department Center 09/19/2020 8:15 AM [id number], LAURA PTMSAMIRA [facility] Reason for Visit: Physical Therapy [503] Primary Visit Diagnosis:Sacroiliitis (HCC) [M46.1] Other Visit Diagnoses:Neurogenic claudication [M48.062] Lumbar spondylosis [M47.816] Allergies As of Date: 09/19/2020 (Not on File) Date Reviewed: Never Reviewed Progress Notes: John Herrera PTA 09/19/2020 10:57 AM Signed Episode Visit Count: 10 Therapist That Will Oversee The Plan Of Care: Camila Samson Start of Care Date: 08/02/20 Onset Date: 08/13/19 Plan of Care Certification Date: 09/05/20 Next Certification Due Date: 10/07/20 Patient Identified by Name and Date of : Yes REHABILITATION AND SPORTS THERAPY PHYSICAL THERAPY TREATMENT NOTE ASSESSMENT: Dominga Larkin demonstrated no right foot cramping with SL stance, improved from last visit. Noted decreased hamstring flexibility. LE fatigue with unilateral squats. Increased SL balance. No sacrum pain during therapy. PLAN FOR NEXT VISIT: add SL balance, continue unilateral squat SUBJECTIVE: Patient Reason for Visit: Pt reports intermittent sharp pain in sacrum 2x a day. Pain: Pain Pain Level: 10 Pain Location: Sacrum Description: Sharp Frequency: Intermittent Post Treatment Pain Post Treatment Pain Level: 0 OBJECTIVE MEASURES WITH LEVEL OF FUNCTION: Patient ambulates to/from locker room without device. Patient enters?/exited the pool via stairs, SBA. Patient accompanied by clinician in water throughout session, SBA unless otherwise noted TREATMENT: Aquatic Therapy: Footwear on pool deck pre-treatment: Yes, patient wearing appropriate footwear and appeared safe on pool deck Footwear on pool deck post-treatment: Yes, patient wearing appropriate footwear and appeared safe on pool deck Aquatic Therapy ([id number]): 1 1: See note below for exercises performed ?WATER DEPTH 3'6" -?4'0" (paddle level 5) - Giant dynamic steps forward/ retro,?shoulder alt flex/ext x 2 length each - Giant dynamic side step right/left,?B shoulder add/abd x 1 length -April with rows x 2 ?? WATER DEPTH 3'9"?-4'0" (light)(cuff 1, added this date) -Static stand, (2) kickboard push down x 15, r/L x 15 each -R/L trunk rotation with hands resting on kickboard, x15 each direction? -B horizontal shoulder abduction, paddle #5 x 15 ? ??WATER DEPTH 3'6"?(cuff 1) -R/L hamstring stretch 2 x?30 seconds each, back to pool wall ? -R/L hamstring curls x?15?each, 2 hand support at pool wall -Clockwise/counterclock rubio 'hoola hoop', tolerable range,?no?hands support at pool wall, 1 x 15 each direction? -SL R/L squat x?15 -hip R/L flexion/extension, abduction/adduction x 15 -LAQ R/L x 15?each -SL R/L heel raise 2 x 10 ? ??Skilled Intervention: Patient was educated in proper exercise technique and purpose for exercises. Skilled judgment was provided in selection of appropriate interventions. Skilled judgment used to assess appropriate program for balance and coordination activity. Patient education: ?Proper hydration following aquatic session Advised to rest as needed upon exiting pool prior to walking to locker room to re-acclimate to full weight bearing status Patient with good understanding. Billing: Aquatic Therapy Treatment Minutes: 38 Total Treatment Time Minutes (timed and untimed codes) : 40 John Herrera PTA [facility] CNTHERAPYon 09-08-2020 CNTHERAPY OT/PT/Speech Visit (PTMCRM) DOMINGA LARKIN ([id number]) 1950 M Date Time Provider Department 09/08/20 3:30 PM JOHN HERRERA Date Time Provider Department Center 09/08/2020 3:30 PM [id number] [facility] Reason for Visit: Physical Therapy [503] Primary Visit Diagnosis:Sacroiliitis (HCC) [M46.1] Other Visit Diagnoses:Neurogenic claudication [M48.062] Lumbar spondylosis [M47.816] Allergies As of Date: 09/08/2020 (Not on File) Date Reviewed: Never Reviewed Progress Notes: John Herrera PTA 09/08/2020 5:52 PM Signed Episode Visit Count: 9 Therapist That Will Oversee The Plan Of Care: Camila Samson Start of Care Date: 08/02/20 Onset Date: 08/13/19 Plan of Care Certification Date: 09/05/20 Next Certification Due Date: 10/07/20 Patient Identified by Name and Date of : Yes REHABILITATION AND SPORTS THERAPY PHYSICAL THERAPY TREATMENT NOTE ASSESSMENT: Dominga Larkin demonstrated increased endurance, posture and strength with increased repetitions. Noted decreased hamstring flexibility. Right foot cramping after single leg stance. Increased activity at home, rest breaks when needed. Discussed with patient sitting in hot tub and to be careful. PLAN FOR NEXT VISIT: add SL balance, SL squat , provide HEP SUBJECTIVE: Patient Reason for Visit: Patient reports will heart catheterization next week, will have to cancel appointment. Patient in hot tub 20 minutes prior to therapy. Came to pool on own once this week. Rode bike one this week, had to stopped to rest from fatigue. Pain: Pain Pain Level: 0 Post Treatment Pain Post Treatment Pain Level: 0 OBJECTIVE MEASURES WITH LEVEL OF FUNCTION: Patient ambulates to/from locker room without device. Patient enters?/exited the pool via stairs, SBA. Patient accompanied by clinician in water throughout session, SBA unless otherwise noted TREATMENT: Aquatic Therapy: Footwear on pool deck pre-treatment: Yes, patient wearing appropriate footwear and appeared safe on pool deck Footwear on pool deck post-treatment: Yes, patient wearing appropriate footwear and appeared safe on pool deck Aquatic Therapy ([id number]): 1 1: See note below for exercises performed ?WATER DEPTH 3'6" -?4'0" (paddle level 5) - Giant dynamic steps forward/ retro,?shoulder alt flex/ext x 2 length each - Giant dynamic side step right/left,?B shoulder add/abd x 2 length -April with rows x 2 ?? WATER DEPTH 3'9"?-4'0" (light) -Static stand, kickboard push down x 15, r/L x 15 each -R/L trunk rotation with hands resting on kickboard, x15 each direction? -B horizontal shoulder abduction, paddle #5 x 15 ? ??WATER DEPTH 3'6"?(cuff 1) -R/L hamstring stretch 2 x?30 seconds each, back to pool wall ? -R/L hamstring curls x?15?each, 2 hand support at pool wall -Clockwise/counterclock rubio 'hoola hoop', tolerable range,?no?hands support at pool wall, 1 x 15 each direction? -B squat x?15 -hip R/L flexion/extension x 15 -LAQ R/L x 15?each ? ??Skilled Intervention: Patient was educated in proper exercise technique and purpose for exercises. Skilled judgment was provided in selection of appropriate interventions. Skilled judgment used to assess appropriate program for balance and coordination activity. Patient education: ?Proper hydration following aquatic session Advised to rest as needed upon exiting pool prior to walking to locker room to re-acclimate to full weight bearing status Patient with good understanding. Billing: Alla: Aquatics ([id number]): 1:1 time: 3 units: 38-52 mins Total time / Length of visit: 40 minutes John Herrera PTA [facility] CNTHERAPYon 09-05-2020 CNTHERAPY OT/PT/Speech Visit (PTMCRM) DMOINGA LARKIN ([id number]) 1950 M Date Time Provider Department 09/05/20 9:30 AM CAMILA SAMSON Date Time Provider Department Center 09/05/2020 9:30 AM [id number] ASENCIO [facility] Reason for Visit: PT Progress Note [1596] Primary Visit Diagnosis:Sacroiliitis (HCC) [M46.1] Other Visit Diagnoses:Neurogenic claudication [M48.062] Lumbar spondylosis [M47.816] Allergies As of Date: 09/05/2020 (Not on File) Date Reviewed: Never Reviewed Progress Notes: Camila Samson, HOOD 09/05/2020 10:26 AM Addendum Episode Visit Count: 8 Therapist That Will Oversee The Plan Of Care: Camila Samson Start of Care Date: 08/02/20 Onset Date: 08/13/19 Plan of Care Certification Date: 09/05/20 Next Certification Due Date: 10/07/20 Patient Identified by Name and Date of : Yes REHABILITATION AND SPORTS THERAPY PHYSICAL THERAPY PROGRESS REPORT Addend: added aquatic noted dated this PLAN OF CARE UPDATE: Assessment: Dominga Larkin exhibits difficulty with posture/abdominal stabilization/flexibili ty and improvements in leg strength. He continues to be limited with standing and walking. He is progressing as expected towards his therapy goals as demonstrated by: pain levels, documented subjective information on progress, documented objective information regarding strength, range of motion and overall function and appointment compliance. He will benefit from continued skilled therapy requiring progression of core strengthening/stability in the aquatic environment to decrease strain on the lowerback in order to further improve patients standing and walking tolerance. See below for updated goal status. All goals remain appropriate at this time. See below for new goal for 5x sit<-->stand. Functional gains: Improved postural alignment Improved postural awareness Increased independence with HEP Increased strength Goals for Episode of Care: created on 08/02/20 through 10/07/20: Updated 09/05/20: Restore pain-free lumbar ROM to WNL for flexion and B rotation to allow for increased ease with functional activities (Not met- continues to have restricted ROM) Stand / Walk 45-60 minutes without pain/symptoms (Not met- reports continued symptoms after standing/walking for 5 minutes at a time) Maintain proper sitting posture throughout session (Progressing- sitting more upright in the chair) Knowledgeable regarding prophylaxis. (Progressing- needs to be able to get into the pool more frequently) Patient will increase strength of hip flexors and extensors to 4+/5 to allow for increase tolerance for walking/yardwork. (Progressing- remains limited for hip extension) Patient will increase flexibility of B hip flexors and hamstrings to WNL to improve mechanics and decrease pain. (Not met- continues to have a lot of tightness in the hamstrings and hip flexors) Aquatic Goal: Patient will be independent with aquatic program and transition to a community pool. (Progressing- has not been coming to pool much outside of PT sessions) Improve postural awareness in sitting/standing to decrease strain on lower back. (Progressing-more aware of posture in sitting) New goals as of 09/05/20: Patient demonstrates 5x sit<-->stand within norms for patients stated age group demonstrating increased strength and balance. Patient Goals: "Im not really sure"; rebuild mm mass in L shoulder blade Planned Interventions, Frequency, and Duration: 2x/week, 3 weeks Total Number of Visits Planned: 6 Patient to be seen for Therapeutic exercise ([id number]);Neuromuscular re-education (99514);Self-long-term management (46113);Aquatic PT ([id number]);Patient/Family/ Caregiver Education PLAN FOR NEXT VISIT: cont with core strengthening and balance; cont 2x/week x 3 weeks with aquatic therapy Prognosis: Good Good due to: current objective clinical presentation;positive past response to therapy;good support system/ coping skills;Prognosis may be limited Prognosis may be limited by: chronic nature of impairments SUBJECTIVE: Patient Reason for Visit: Patient reports that he is feeling better. He reports that he is getting better with the aquatics. He reports that he continues to lose his balance. He reports that it has taken him awhile to get the hang of the exercises. He reports that he rode his bike around his "park" and he has not been able to do this in over a year. Had difficulty going up a hill. He reports continued leg pain. Spine History Pain is Worse Always: Standing;Walking (yardwork) Pain is Better Always: Sitting Pain: Pain Pain Level: 0 (pain at worst 10/10) Pain Location: (low back ) Frequency: Intermittent Post Treatment Pain Post Treatment Pain Level: No Change Post Treatment Pain Location: (low back) PROMIS Scales T-scores: m (more content not included)... [facility] DOMINGA LARKIN ([id number]) 1950 M Date Time Provider Department 09/05/20 8:15 AM JOHN HERRERA Date Time Provider Department Center 09/05/2020 8:15 AM [id number], LAURA [facility] Reason for Visit: Physical Therapy [503] Primary Visit Diagnosis:Sacroiliitis (HCC) [M46.1] Allergies As of Date: 09/05/2020 (Not on File) Date Reviewed: Never Reviewed Progress Notes: John Herrera PTA 09/05/2020 3:08 PM Signed Episode Visit Count: Visit count could not be calculated. Make sure you are using a visit which is associated with an episode. Therapist That Will Oversee The Plan Of Care: Camila Samson Start of Care Date: 08/02/20 Onset Date: 08/13/19 Plan of Care Certification Date: 09/05/20 Next Certification Due Date: 10/07/20 Please see Physical Therapist note dated for today for aquatic therapy visit documentation for today's visit. [facility] CNTHERAPYon 09-01-2020 CNTHERAPY OT/PT/Speech Visit (PTMCRM) DOMINGA LARKIN ([id number]) 1950 M Date Time Provider Department 09/01/20 11:45 AM JOHN HERRERA [facility] Date Time Provider Department Center 09/01/2020 11:45 AM [id number], LAURA [facility] Reason for Visit: Physical Therapy [503] Primary Visit Diagnosis:Sacroiliitis (HCC) [M46.1] Other Visit Diagnoses:Neurogenic claudication [M48.062] Lumbar spondylosis [M47.816] Allergies As of Date: 09/01/2020 (Not on File) Date Reviewed: Never Reviewed Progress Notes: John Herrera PTA 09/01/2020 2:36 PM Signed Episode Visit Count: 7 Therapist That Will Oversee The Plan Of Care: Camila Samson Start of Care Date: 08/02/20 Onset Date: 08/13/19 Plan of Care Certification Date: 08/02/20 Next Certification Due Date: 09/23/20 Patient Identified by Name and Date of : Yes REHABILITATION AND SPORTS THERAPY PHYSICAL THERAPY TREATMENT NOTE ASSESSMENT: Dominga Larkin demonstrated decreased support pool wall with dynamic mobility. Right lumbar sore with rotation. Hamstring flexibility improved. Tactile cuing to correct lumbar flexion posture with exercises. PLAN FOR NEXT VISIT: progress core strength SUBJECTIVE: Patient Reason for Visit: Patient reports right arm to elbow hurts, not sure why. No increased soreness after last visit. Patient walked around park with walking stick, sat and rest after 30 minutes then continued another 30 minutes. Pain: Pain Pain Level: 3 Pain Location: Arm - Right Description: Aching Frequency: Continuous Post Treatment Pain Post Treatment Pain Level: No Change OBJECTIVE MEASURES WITH LEVEL OF FUNCTION: Patient ambulates to/from locker room without device. ?Patient enters?/exited the pool via stairs, SBA. Patient accompanied by clinician in water throughout session, SBA unless otherwise noted TREATMENT: Aquatic Therapy: Footwear on pool deck pre-treatment: Yes, patient wearing appropriate footwear and appeared safe on pool deck Footwear on pool deck post-treatment: Yes, patient wearing appropriate footwear and appeared safe on pool deck Aquatic Therapy ([id number]): 1 1: See note below for exercises performed WATER DEPTH 3'6" - 4'0" - Giant dynamic steps forward/ retro, intermittent support on pool wall x 2 length each - Giant dynamic side step right/left,?intermitten t?hand support x 2 length -April with rows paddle 3# x 2 WATER DEPTH 3'9" -4'0" (light) -Static stand, kickboard push down x 10 -R/L trunk rotation with hands resting on kickboard, x 10 each direction WATER DEPTH 3'6" (cuff 1) -R/L hamstring stretch 2 x?30 seconds each, back to pool wall ? -R/L hamstring curls x?15?each, 2 hand support at pool wall -Clockwise/counterclock rubio 'hoola hoop', tolerable range, no hands support at pool wall, 1 x 10 each direction? -B squat x?15 -hip R/L abd/ ext x 10 -LAQ R/L x 15 each ? ??Skilled Intervention: Patient was educated in proper exercise technique and purpose for exercises. Skilled judgment was provided in selection of appropriate interventions. Skilled judgment used to assess appropriate program for balance and coordination activity. Patient education: ?Proper hydration following aquatic session Advised to rest as needed upon exiting pool prior to walking to locker room to re-acclimate to full weight bearing status Patient with good understanding. Billing: Gold: Aquatics ([id number]): 1:1 time: 3 units: 38-52 mins Total time / Length of visit: 40 minutes John Herrera PTA [facility] CNTHERAPYon 08-24-2020 CNTHERAPY OT/PT/Speech Visit (PTMCRM) DOMINGA LARKIN ([id number]) 1950 M Date Time Provider Department 08/24/20 8:30 AM JOHN HERRERA Date Time Provider Department Center 08/24/2020 8:30 AM [id number], LAURA [facility] Reason for Visit: Physical Therapy [503] Primary Visit Diagnosis:Sacroiliitis (HCC) [M46.1] Other Visit Diagnoses:Neurogenic claudication [M48.062] Lumbar spondylosis [M47.816] Allergies As of Date: 08/24/2020 (Not on File) Date Reviewed: Never Reviewed Progress Notes: John Herrera PTA 08/24/2020 4:10 PM Signed Episode Visit Count: 6 Therapist That Will Oversee The Plan Of Care: Camila Samson Start of Care Date: 08/02/20 Onset Date: 08/13/19 Plan of Care Certification Date: 08/02/20 Next Certification Due Date: 09/23/20 Patient Identified by Name and Date of : Yes REHABILITATION AND SPORTS THERAPY PHYSICAL THERAPY TREATMENT NOTE ASSESSMENT: Dominga Larkin demonstrated improved balance requiring less hand support pool wall. Increased coordination and balance performing LE/UE dynamic movents simultaneously. Added buoyancy cuff 1 to stretches and strengthening, no difficulty. PLAN FOR NEXT VISIT: continue hip,lumbar flexibility and mobility SUBJECTIVE: Patient Reason for Visit: Pt reports muscle spasms in legs. No soreness after last visit, arm feeling better. Pt reports will see heart MD soon. also needs to work on tractor. Pain: Pain Pain Level: 6 Pain Location: Sacrum Description: Sharp Frequency: Intermittent Additional Pain Information : (5/10 right neck, sore) Post Treatment Pain Post Treatment Pain Level: No Change OBJECTIVE MEASURES WITH LEVEL OF FUNCTION: Patient ambulates to/from locker room without device.?(with partner rene)? ?Patient enters?/exited the pool via stairs, SBA. Patient accompanied by clinician in water throughout session, SBA unless otherwise noted. TREATMENT: Aquatic Therapy: Footwear on pool deck pre-treatment: Yes, patient wearing appropriate footwear and appeared safe on pool deck Footwear on pool deck post-treatment: Yes, patient wearing appropriate footwear and appeared safe on pool deck Aquatic Therapy ([id number]): 1 1: See note below for exercises performed WATER DEPTH 3'6" - 3'0"?(pool by water slide) - Giant dynamic steps forward/ retro, intermittent support on pool wall x 2 length each - Giant dynamic side step right/left,?intermitten t?hand support x 2 length -?dynamic march?x3 WATER DEPTH 3'6" - 3'0"?(pool by water slide)(cuff 1, added this date) SBA -dynamic step forward x 2 -April with rows paddle 3# x 1 ? WATER DEPTH 3'6" (cuuf 1, added this date) -R/L hamstring stretch 2 x?30 seconds each, back to pool wall ? -R/L hamstring curls x?15?each, 2 hand support at pool wall -Clockwise/counterclock rubio 'hoola hoop', tolerable range, no hands support at pool wall, 1 x 10 each direction? -B squat x 15 -hip R/L abd/ ext x 10 -LAQ R/L x 10 each ?Skilled Intervention: Patient was educated in proper exercise technique and purpose for exercises. Skilled judgment was provided in selection of appropriate interventions. Skilled judgment used to assess appropriate program for balance and coordination activity. Patient education: ?Proper hydration following aquatic session Expectation of fatigue/discomfort with exercise progressions and normal response Goal to gradually decrease water depth to tolerance in preparation for transition to land based physical therapy and daily living Advised to rest as needed upon exiting pool prior to walking to locker room to re-acclimate to full weight bearing status Patient with good understanding. Billing: Alla: Aquatics ([id number]): 1:1 time: 3 units: 38-52 mins Total time / Length of visit: 40 minutes John Herrera PTA [facility] CNTHERAPYon 08-22-2020 CNTHERAPY OT/PT/Speech Visit (PTMCRM) DOMINGA LARKIN ([id number]) 1950 M Date Time Provider Department 08/22/20 8:15 AM JOHN HERRERA Date Time Provider Department Center 08/22/2020 8:15 AM [id number], LAURA PTMM [facility] Reason for Visit: Physical Therapy [503] Primary Visit Diagnosis:Sacroiliitis (HCC) [M46.1] Other Visit Diagnoses:Neurogenic claudication [M48.062] Lumbar spondylosis [M47.816] Allergies As of Date: 08/22/2020 (Not on File) Date Reviewed: Never Reviewed Progress Notes: John Herrera PTA 08/22/2020 10:47 AM Signed Episode Visit Count: 5 Therapist That Will Oversee The Plan Of Care: Camila Samson Start of Care Date: 08/02/20 Onset Date: 08/13/19 Plan of Care Certification Date: 08/02/20 Next Certification Due Date: 09/23/20 Patient Identified by Name and Date of : Yes REHABILITATION AND SPORTS THERAPY PHYSICAL THERAPY TREATMENT NOTE ASSESSMENT: Dominga Lewis Trae demonstrated cuing to correct anterior rotated shoulders and lumbar flexion posture performing exercises. Progressed postural strength adding UE strength with paddle resulting in neck soreness. PLAN FOR NEXT VISIT: continue postural strength SUBJECTIVE: Patient Reason for Visit: Pt reports still gets intermittent sacrum and back pain standing from seated position. Sore after last visit for a day. Arms sore from mowing grass, turning wheel. Pain: Pain Pain Level: 6 Pain Location: Sacrum Description: Sharp Frequency: Intermittent Post Treatment Pain Post Treatment Pain Level: 8 Post Treatment Pain Location: Neck Post Treatment Pain Description: Sore OBJECTIVE MEASURES WITH LEVEL OF FUNCTION: Patient ambulates to/from locker room without device.?(with partner rene)? ?Patient enters?/exited the pool via stairs, SBA. Patient accompanied by clinician in water throughout session, SBA unless otherwise noted. TREATMENT: Aquatic Therapy: Footwear on pool deck pre-treatment: Yes, patient wearing appropriate footwear and appeared safe on pool deck Footwear on pool deck post-treatment: Yes, patient wearing appropriate footwear and appeared safe on pool deck Aquatic Therapy ([id number]): 1 1: See note below for exercises performed WATER DEPTH 3'6" - 4'0"?(SBA) - Giant dynamic steps forward/ retro, hand support on pool wall x 2 length each - Giant dynamic side step right/left,?2?hand support x 2 length -?dynamic march?with rows paddle #5 x2 ? WATER DEPTH 3'9" -R/L hamstring stretch 2 x?30 seconds each, back to pool wall ? -R/L hamstring curls x?15?each, 2 hand support at pool wall -Clockwise/counterclock rubio 'hoola hoop', tolerable range, with 2 hands support at pool wall, 1 x 10 each direction? -B squat x 10 WATER DEPTH 4'0" -static stand, push downs, center, right/left with noodle x 15 each -R/L alternating shoulder flexion/extension x 10, level 5 paddle -R/L alternating shoulder adduction/abduction x 10, level 5 paddle -R/L alternating shoulder horizontal adduction/abduction x 10, level 5 paddle ? ??Skilled Intervention: Patient was educated in proper exercise technique and purpose for exercises. Skilled judgment was provided in selection of appropriate interventions. Skilled judgment used to assess appropriate program for balance and coordination activity. Patient education: ?Proper hydration following aquatic session Expectation of fatigue/discomfort with exercise progressions and normal response Goal to gradually decrease water depth to tolerance in preparation for transition to land based physical therapy and daily living Advised to rest as needed upon exiting pool prior to walking to locker room to re-acclimate to full weight bearing status Patient with good understanding. Billing: Alla: [place] [employer] ([id number]): 1:1 time: 3 units: 38-52 mins Total time / Length of visit: 40 minutes John Herrera PTA [facility] CNTHERAPYon 08-18-2020 CNTHERAPY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 been sternotomy. There is mediastinal prominence probably vascular. There is no pleural effusion or other significant interval change. Report Dictated on --- Final --- Dictated: 11/13/2018 7:51 am Dictating Physician: MD MICHAEL AHMAD Signed Date and Time: 11/13/2018 7:52 am Signed by: MD MICHAEL AHMAD Transcribed Date and Time: 11/13/2018 7:51 [place], [place] Lars, [facility] Incoming Radiology Results From [facility] - 11/13/2018 7:54 AM EDT Patient Name: DOMINGA LARKIN ---Diagnostic Radiology--- Exam Date/Time 11/13/2018 06:25:45 EDT Exam CR Chest Portable Ordering Physician MD MCKEON KEVIN L. Accession Number [id number] CPT4 Codes 15707 () Reason For Exam POST OPEN HEART Report CHEST (Frontal View) History: Respiratory abnormality Comparison: 11/12/2018 Findings: Frontal portable chest view shows left and smaller right basilar linear atelectasis, decreased on the right compared to last exam. There are no acute infiltrate or congestion. The heart is mildly enlarged. There has been sternotomy. There is mediastinal prominence probably vascular. There is no pleural effusion or other significant interval change. Report Dictated on --- Final --- Dictated: 11/13/2018 7:51 am Dictating Physician: MD MICHAEL AHMAD Signed Date and Time: 11/13/2018 7:52 am Signed by: MD MICHAEL AHMAD Transcribed Date and Time: 11/13/2018 7:51 [facility] [place] [place] Basic Metabolic Panelon 10-26 Anion gap [Moles/Vol] 8 Normal [facility] Comment on above: Performed By: #### C /SA #### [place] [address] [place] [address] Calcium [Mass/Vol] 9.1 mg/dL Normal 8.4-10.4 [facility] Comment on above: Performed By: #### C /SA #### [place] [address] [place] [address] CO2 [Moles/Vol] 30 mmol/L Normal 22-30 [facility] Comment on above: Performed By: #### C /SA #### [place] [address] [place] [address] Glucose [Mass/Vol] 158 mg/dL High 70-100 [facility] Comment on above: Performed By: #### C /SA #### [facility] [address] [place] [address] Urea nitrogen [Mass/Vol] 20 mg/dL Normal 7-20 [facility] Comment on above: Performed By: #### C /SA #### [facility] [address] [place] [address] Creatinine [Mass/Vol] 1.03 mg/dL Normal 0.52-1.25 [facility] Comment on above: Performed By: #### C /SA #### [place] [address] [place] [address] GFR/1.73 sq M predicted among blacks MDRD (S/P/Bld) [Vol rate/Area] mL/min/{1.73_m2} Normal >60 [facility] Comment on above: Performed By: #### C /SA #### [facility] [address] [place] [address] GFR/1.73 sq M predicted among non-blacks MDRD (S/P/Bld) [Vol rate/Area] mL/min/{1.73_m2} Normal >60 [facility] Comment on above: Result Comment: Sour ce- MDRD equation with creatinine calibration to IDMS(NKDEP) eGFR not recommended for drug dose adjustment Performed By: #### C /SA #### [place] [address] [place] [address] Potassium [Moles/Vol] 4.2 mmol/L Normal 3.5-5.1 [facility] Comment on above: Performed By: #### C /SA #### [place] [address] [place] [address] Sodium [Moles/Vol] 138 mmol/L Normal 135-145 [facility] Comment on above: Performed By: #### C /SA #### [place] [address] [place] [address] Chloride [Moles/Vol] 100 mmol/L Normal 98-107 [facility] Comment on above: Performed By: #### C /SA #### [place] [address] [place] [address] Anion gap [Moles/Vol] 8 mmol/L [facility], [place] Calcium [Mass/Vol] 9.1 mg/dL 8.4 - 10. 4 mg/dL [facility], [place] Chloride [Moles/Vol] 100 mmol/L 98 - 10 7 mmol/L [facility], [place] CO2 [Moles/Vol] 30 mmol/L 22 - 30 mmol/L [facility], [place] Creatinine [Mass/Vol] 1.03 mg/dL 0.52 - 1.25 mg/dL [facility], [place] EGFR IF NonAfrican [place]er >60.0 >60 mL/min [place], [place] Comment on above: Source- MDRD equatio n with creatinine calibration to IDMS(NKDEP) eGFR not recommended for drug dose adjustment GFR/1.73 sq M predicted among blacks MDRD (S/P/Bld) [Vol rate/Area] mL/min/{1.73_m2} >60 mL/min [place], [place] Glucose [Mass/Vol] 158 mg/dL High 70 - 100 mg/dL [place] Interpretation and review of laboratory results Abnormal [place] Potassium [Moles/Vol] 4.2 mmol/L 3.5 - 5.1 mmol/L [place] Sodium [Moles/Vol] 138 mmol/L 135 - 145 mmol/L [place] Urea nitrogen [Mass/Vol] 20 mg/dL 7 - 20 mg/dL [place] Test Performed by [address] [address] [place], [place] CBCon 11-12-2018 Erythrocyte distribution width (RBC) [Ratio] 14.2 % 11.5 - 14.5 % [place] Hematocrit (Bld) [Volume fraction] 37.3 % Low 40 - 52 % [place] Hemoglobin (Bld) [Mass/Vol] 13.0 g/dL 13 - 18 g/dL [place] Interpretation and review of laboratory results Abnormal [place] MCH (RBC) [Entitic mass] 31.3 pg 26 - 34 pg [place] MCHC (RBC) [Mass/Vol] 34.8 % 32 - 36 % [place] MCV (RBC) [Entitic vol] 89.9 fL 80 - 98 fL [place], [place] Platelet mean volume (Bld) [Entitic vol] 9.0 fL 7.4 - 10.4 fL [place] Platelets (Bld) [#/Vol] 157 10*3/uL 140 - 440 10*3/uL [place] RBC (Bld) [#/Vol] 4.15 10*6/uL Low 4.4 - 5.9 10*6/uL [facility], [place] WBC (Bld) [#/Vol] 6.4 10*3/uL 3.6 - 10.7 10*3[facility]uL [facility] Test Performed by [facility], [address] [place] [address] [facility], [place] CR Chest Portableon 11-13-19 19 CR Chest Portable Patient Name: DOMINGA LARKIN Diagnostic Radiology Exam Date/Time 11/12/2018 06:48:36 EDT Exam CR Chest Portable Ordering Physician MD MIKE, JERRY Dorsey Accession Number [id number] CPT4 Codes 59131 () Reason For Exam POST OPEN HEART Report Clinical indications: Postop, open heart surgery FINDINGS: A single view is submitted and compared with a prior study from 11/11/2018. The cardiomediastinal silhouette is stable. 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 Minimal subsegmental atelectasis or scarring is present in the left lung base. There is no evidence of effusion, CHF or pneumothorax. IMPRESSION: No significant change when compared with prior study. Report Dictated on Final Dictated: 11/12/2018 9:11 am Dictating Physician: MD KELLY RUSSELL Signed Date and Time: 11/12/2018 9:14 am Signed by: MD KELLY RUSSELL Transcribed Date and Time: 11/12/2018 9:11 Normal [facility] EKG 12 Leadon 11-12-2018 Lars, [facility] Incoming Cardiology Results From [facility] - 11/12/2018 1:02 PM EDT [facility] Test Date: 2018-11-12 Pat Name: Dominga Larkin Department: 1AHLU Room: [facility] Gender: M Clinical Nurse Specialist: GRETA : 1950 Requested By: Order Number: [id number] Reading MD: Rahul Rodríguez Measurements Intervals [place] Rate: 89 P: 58 CA: 166 QRS: -6 QRSD: 95 T: -25 QT: 369 QTc: 515 Interpretive Statements Sinus rhythm NSVT, 4 beats, irregular rate A ventricular couplet and PVC noted Inferior infarct, age indeterminate Electronically Signed On 11-12-2018 13:01:44 EDT by Rahul Rodríguez [facility] Test Date: 2018-11-12 Pat Name: Dominga Larkin Department: [facility] Room: [facility] Gender: M Clinical Nurse Specialist: GRETA : 1950 Requested By: Order Number: [id number] Reading MD: Rahul Rodríguez Measurements Intervals [place] Rate: 89 P: 58 CA: 166 QRS: -6 QRSD: 95 T: -25 QT: 369 QTc: 515 Interpretive Statements Sinus rhythm NSVT, 4 beats, irregular rate A ventricular couplet and PVC noted Inferior infarct, age indeterminate Electronically Signed On 11-12-2018 13:01:44 EDT by Rahul Rodríguez [facility] Test Date: 2018-11-11 Pat Name: Dominga Larkin Department: [facility] Room: [facility] Gender: M Clinical Nurse Specialist: AALIYAH : 1950 Requested By: Order Number: [id number] Reading MD: Nina Mac Measurements Intervals [place] Rate: 82 P: 69 CA: 186 QRS: -10 QRSD: 99 T: -25 QT: 398 QTc: 465 Interpretive Statements Sinus rhythm Ventricular tachycardia, unsustained Inferior infarct, old Electronically Signed On 11-12-2018 11:22:57 EDT by Nina [facility] Incoming Cardiology Results From [facility] - 11/12/2018 11:24 AM EDT [facility] Test Date: 2018-11-11 Pat Name: Dominga Larkin Department: [facility] Room: 1[facility]U19 Gender: M Clinical Nurse Specialist: AALIYAH : 1950 Requested By: Order Number: [id number] Reading : Nina Mac Measurements Intervals [place] Rate: 82 P: 69 CA: 186 QRS: -10 QRSD: 99 T: -25 QT: 398 QTc: 465 Interpretive Statements Sinus rhythm Ventricular tachycardia, unsustained Inferior infarct, old Electronically Signed On 11-12-2018 11:22:57 EDT [facility] [place] [place] Glucose,Bedsideon 11-12-2018 Glucose [Mass/Vol] 107 mg/dL High 70-100 [facility] Comment on above: Result Comment: Test performed by glucose meter. Results may be 10%-15% lower than serum/plasma values. (CLIA ID [id number]) Performed By: #### B GLU #### [facility] [employer] [facility] [address], [place] Glucose [Mass/Vol] 242 mg/dL High 70-100 [facility] Comment on above: Result Comment: Test performed by glucose meter. Results may be 10%-15% lower than serum/plasma values. (CLIA ID [id number]) Performed By: #### C /SA #### [facility] [employer] [facility] [address], [place] Glucose [Mass/Vol] 215 mg/dL High 70-100 [facility] Comment on above: Result Comment: Test performed by glucose meter. Results may be 10%-15% lower than serum/plasma values. (CLIA ID [id number]) Performed By: #### C /SA #### [facility] [address], [place] Hemogramon 11-12-2018 Erythrocyte distribution width (RBC) [Ratio] 14.2 % Normal 11.5-14.5 [facility] Comment on above: Performed By: #### C /SA #### [facility] [employer] [facility] [address], [place] Hematocrit (Bld) [Volume fraction] 37.3 % Low 40.0-52.0 [facility] Comment on above: Performed By: #### C /SA #### [facility] [address], [place] Hemoglobin (Bld) [Mass/Vol] 13.0 g/dL Normal 13.0-18.0 [facility] Comment on above: Performed By: #### C /SA #### [facility] [address], [place] MCH (RBC) [Entitic mass] 31.3 pg Normal 26.0-34.0 [facility] Comment on above: Performed By: #### C /SA #### [facility] [address], [place] MCHC (RBC) [Mass/Vol] 34.8 % Normal 32.0-36.0 [facility] Comment on above: Performed By: #### C /SA #### [facility] [address], [place] MCV (RBC) [Entitic vol] 89.9 fL Normal 80.0-98.0 [facility] Comment on above: Performed By: #### C /SA #### [facility] [address], [place] Platelet mean volume (Bld) [Entitic vol] 9.0 fL Normal 7.4-10.4 [facility] Comment on above: Performed By: #### C /SA #### [facility] [address], [place] Platelets (Bld) [#/Vol] 157 10*3/uL Normal 140-440 [facility] Comment on above: Performed By: #### C /SA #### [facility] [address], [place] RBC (Bld) [#/Vol] 4.15 10*6/uL Low 4.40-5.90 [facility] Comment on above: Performed By: #### C /SA #### [facility] [address], [place] WBC (Bld) [#/Vol] 6.4 10*3/uL Normal 3.6-10.7 [facility] Comment on above: Performed By: #### C /SA #### [facility] [address], [place] POCT Glucoseon 11-12-2018 Glucose [Mass/Vol] 107 mg/dL High 70 - 100 mg/dL [facility] [employer] Comment on above: Test performed by ucose meter. Results may be 10%-15% lower than serum/plasma values. (CLIA ID [id number]) Interpretation and review of laboratory results Abnormal [facility] [place], [place] Test Performed by [facility], [facility] [address] [facility], [place] [address] [facility] [employer] [place], [place] Glucose [Mass/Vol] 242 mg/dL High 70 - 100 mg/dL [facility] [place], [place] Comment on above: Test performed by gl ucose meter. Results may be 10%-15% lower than serum/plasma values. (CLIA ID [id number]) Interpretation and review of laboratory results Abnormal [employer] [place], [place] Test Performed by [facility], [address] [facility] [place] [address] [facility] [place], [place] Glucose [Mass/Vol] 215 mg/dL High 70 - 100 mg/dL [facility] [employer] [place], [place] Comment on above: Test performed by gl ucose meter. Results may be 10%-15% lower than serum/plasma values. (CLIA ID [id number]) Interpretation and review of laboratory results Abnormal [employer], [place] Test Performed by [facility], [facility] [place] [address] [facility], [place] XR CHEST PORTABLEon 11-13-19 Patient Name: DOMINGA LARKIN ---Diagnostic Radiology--- Exam Date/Time 11/12/2018 06:48:36 EDT Exam CR Chest Portable Ordering Physician MD MIKE, JERRY Dorsey Accession Number [id number] CPT4 Codes 92886 () Reason For Exam POST OPEN HEART Report Clinical indications: Postop, open heart surgery FINDINGS: A single view is submitted and compared with a prior study from 11/11/2018. The cardiomediastinal silhouette is stable. 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 Minimal subsegmental atelectasis or scarring is present in the left lung base. There is no evidence of effusion, CHF or pneumothorax. IMPRESSION: No significant change when compared with prior study. Report Dictated on --- Final --- Dictated: 11/12/2018 9:11 am Dictating Physician: MD KELLY RUSSELL Signed Date and Time: 11/12/2018 9:14 am Signed by: MD KELLY RUSSELL Transcribed Date and Time: 11/12/2018 9:11 [place], [place] Lars, [facility] In[facility] Rad[facility] Results From [facility] - 11/12/2018 9:16 AM EDT Patient Name: DOMINGA LARKIN ---Diagnostic Radiology--- Exam Date/Time 11/12/2018 06:48:36 EDT Exam CR Chest Portable Ordering Physician MD MIKE, JERRY Dorsey Accession Number [id number] CPT4 Codes 92548 () Reason For Exam POST OPEN HEART Report Clinical indications: Postop, open heart surgery FINDINGS: A single view is submitted and compared with a prior study from 11/11/2018. The cardiomediastinal silhouette is stable. 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 Minimal subsegmental atelectasis or scarring is present in the left lung base. There is no evidence of effusion, CHF or pneumothorax. IMPRESSION: No significant change when compared with prior study. Report Dictated on --- Final --- Dictated: 11/12/2018 9:11 am Dictating Physician: MD KELLY RUSSELL Signed Date and Time: 11/12/2018 9:14 am Signed by: MD KELLY RUSSELL Transcribed Date and Time: 11/12/2018 9:11 [place], [place] Basic Metabolic Panelon 10-26 Anion gap [Moles/Vol] 4 Normal [facility] Comment on above: Performed By: #### C /SA #### [facility] [address] [place] [address] Calcium [Mass/Vol] 8.7 mg/dL Normal 8.4-10.4 [facility] Comment on above: Performed By: #### C /SA #### [facility] [address] [place] [address] CO2 [Moles/Vol] 32 mmol/L High 22-30 [facility] Comment on above: Performed By: #### C /SA #### [facility] [address] [place] [address] Glucose [Mass/Vol] 245 mg/dL High 70-100 [facility] Comment on above: Performed By: #### C /SA #### [facility] [address], [place] Urea nitrogen [Mass/Vol] 20 mg/dL Normal 7-20 [facility] Comment on above: Performed By: #### C /SA #### [place] [address] [place], [place] Creatinine [Mass/Vol] 1.01 mg/dL Normal 0.52-1.25 [facility] Comment on above: Performed By: #### C /SA #### [place] [address] [place], [place] GFR/1.73 sq M predicted among blacks MDRD (S/P/Bld) [Vol rate/Area] mL/min/{1.73_m2} Normal >60 [facility] Comment on above: Performed By: #### C /SA #### [place] [address] [place], [place] GFR/1.73 sq M predicted among non-blacks MDRD (S/P/Bld) [Vol rate/Area] mL/min/{1.73_m2} Normal >60 [facility] Comment on above: Result Comment: Sour ce- MDRD equation with creatinine calibration to IDMS(NKDEP) eGFR not recommended for drug dose adjustment Performed By: #### C /SA #### [place] [address] [place], [place] Potassium [Moles/Vol] 4.1 mmol/L Normal 3.5-5.1 [facility] Comment on above: Performed By: #### C /SA #### [place] [address] [place], [place] Sodium [Moles/Vol] 136 mmol/L Normal 135-145 [facility] Comment on above: Performed By: #### C /SA #### [address] [place], [place] Chloride [Moles/Vol] 99 mmol/L Normal 98-107 [facility] Comment on above: Performed By: #### C /SA #### [address] [place], [place] Anion gap [Moles/Vol] 4 mmol/L [place], [place] Calcium [Mass/Vol] 8.7 mg/dL 8.4 - 10. 4 mg/dL [place], [place] Chloride [Moles/Vol] 99 mmol/L 98 - 10 7 mmol/L [place] CO2 [Moles/Vol] 32 mmol/L High 22 - 30 mmol/L [place] Creatinine [Mass/Vol] 1.01 mg/dL 0.52 - 1.25 mg/dL [place], [place] EGFR IF NonAfrican [place]er >60.0 >60 mL/min [place] Comment on above: Source- MDRD equatio n with creatinine calibration to IDMS(NKDEP) eGFR not recommended for drug dose adjustment GFR/1.73 sq M predicted among blacks MDRD (S/P/Bld) [Vol rate/Area] mL/min/{1.73_m2} >60 mL/min [place] Glucose [Mass/Vol] 245 mg/dL High 70 - 100 mg/dL [place] Interpretation and review of laboratory results Abnormal [place] Potassium [Moles/Vol] 4.1 mmol/L 3.5 - 5.1 mmol/L [place] Sodium [Moles/Vol] 136 mmol/L 135 - 145 mmol/L [place] Urea nitrogen [Mass/Vol] 20 mg/dL 7 - 20 mg/dL [place] Anion gap [Moles/Vol] 8 Normal [facility] Comment on above: Performed By: #### H SHADIA KURTZ ####[address] [place] [address] Calcium [Mass/Vol] 8.5 mg/dL Normal 8.4-10.4 [facility] Comment on above: Performed By: #### H SHADIA KURTZ ####[facility] [place] [address] CO2 [Moles/Vol] 28 mmol/L Normal 22-30 [facility] Comment on above: Performed By: #### H SHADIA KURTZ ####[facility] [place] [address] Glucose [Mass/Vol] 204 mg/dL High 70-100 [facility] Comment on above: Performed By: #### H TESSIE BMP3 ####[facility] [employer] [id number] [facility] [place] [address] Urea nitrogen [Mass/Vol] 20 mg/dL Normal 7-20 [facility] Comment on above: Performed By: #### H TESSIE BMP3 ####[facility] [employer] [address] [place] [address] Creatinine [Mass/Vol] 1.01 mg/dL Normal 0.52-1.25 [facility] Comment on above: Performed By: #### H TESSIE BMP3 ####[facility] [employer] [id number] [facility] [place] [address] GFR/1.73 sq M predicted among blacks MDRD (S/P/Bld) [Vol rate/Area] mL/min/{1.73_m2} Normal >60 [facility] Comment on above: Performed By: #### H YASEMIN KURTZ3 ####[facility] [employer] [id number] [place] [address] GFR/1.73 sq M predicted among non-blacks MDRD (S/P/Bld) [Vol rate/Area] mL/min/{1.73_m2} Normal >60 [facility] Comment on above: Result Comment: Sour ce- MDRD equation with creatinine calibration to IDMS(NKDEP) eGFR not recommended for drug dose adjustment Performed By: #### H TESSIE BMP3 ####[facility] [employer] [id number] [place] [address] Potassium [Moles/Vol] 4.1 mmol/L Normal 3.5-5.1 [facility] Comment on above: Performed By: #### H TESSIE BMP3 ####[facility] [employer] [id number] [place] [address] Sodium [Moles/Vol] 135 mmol/L Normal 135-145 [facility] Comment on above: Performed By: #### Reba KURTZ BMP3 ####[address] [place] [address] Chloride [Moles/Vol] 99 mmol/L Normal 98-107 [facility] Comment on above: Performed By: #### H YASEMIN KURTZ3 ####[address] [place] [address] Anion gap [Moles/Vol] 8 mmol/L [place], [place] Calcium [Mass/Vol] 8.5 mg/dL 8.4 - 10. 4 mg/dL [place] Chloride [Moles/Vol] 99 mmol/L 98 - 10 7 mmol/L [place] CO2 [Moles/Vol] 28 mmol/L 22 - 30 mmol/L [place] Creatinine [Mass/Vol] 1.01 mg/dL 0.52 - 1.25 mg/dL [place] EGFR IF NonAfrican [place] >60.0 >60 mL/min [place] Comment on above: Source- MDRD equatio n with creatinine calibration to IDMS(NKDEP) eGFR not recommended for drug dose adjustment GFR/1.73 sq M predicted among blacks MDRD (S/P/Bld) [Vol rate/Area] mL/min/{1.73_m2} >60 mL/min [place] Glucose [Mass/Vol] 204 mg/dL High 70 - 100 mg/dL [place] Interpretation and review of laboratory results Abnormal [place] Potassium [Moles/Vol] 4.1 mmol/L 3.5 - 5.1 mmol/L [place] Sodium [Moles/Vol] 135 mmol/L 135 - 145 mmol/L [place] Urea nitrogen [Mass/Vol] 20 mg/dL 7 - 20 mg/dL [place] Test Performed by [facility], [facility] [place] [address] [place], [place] CBCon 11-11-2018 Erythrocyte distribution width (RBC) [Ratio] 14.2 % 11.5 - 14.5 % [place] Hematocrit (Bld) [Volume fraction] 33.0 % Low 40 - 52 % [place] Hemoglobin (Bld) [Mass/Vol] 11.2 g/dL Low 13 - 18 g/dL [place] Interpretation and review of laboratory results Abnormal [place] MCH (RBC) [Entitic mass] 30.2 pg 26 - 34 pg [place] MCHC (RBC) [Mass/Vol] 33.9 % 32 - 36 % Judy [place], [place] MCV (RBC) [Entitic vol] 88.9 fL 80 - 98 fL [place], [place] Platelet mean volume (Bld) [Entitic vol] 8.8 fL 7.4 - 10.4 fL [place] Platelets (Bld) [#/Vol] 134 10*3/uL Low 140 - 440 10*3/uL [place] RBC (Bld) [#/Vol] 3.72 10*6/uL Low 4.4 - 5.9 10*6/uL [place] WBC (Bld) [#/Vol] 6.3 10*3/uL 3.6 - 10.7 10*3/uL [place] Test Performed by [facility], [address] [place] [id number] [place] [address] CR Chest Portableon 11-12-19 19 CR Chest Portable Patient Name: DOMINAG LARKIN Diagnostic Radiology Exam Date/Time 11/11/2018 06:41:25 EDT Exam CR Chest Portable Ordering Physician MD MIKE, JERRY Dorsey Accession Number [id number] CPT4 Codes 20586 () Reason For Exam post open heart / sob Report PORTABLE CHEST X-RAY CLINICAL INDICATION: Status post open heart surgery A portable frontal view of the chest was obtained. COMPARISON: 11/10/2018 FINDINGS: Heart size is within normal limits. Sternotomy wires and right jugular sheath appear unchanged. There is mild bilateral basilar atelectasis, similar to the prior study. No new areas of consolidation are seen. There is no pleural effusion or pneumothorax. There are degenerative changes of the spine. IMPRESSION: No significant change when compared with the previous study. Report Dictated on Final Dictated: 11/11/2018 8:21 am Dictating Physician: MD GRIFFIN JONATHAN R Signed Date and Time: 11/11/2018 8:22 am Signed by: MD GRIFFIN JONATHAN R Transcribed Date and Time: 11/11/2018 8:21 Normal [facility] EKG 12 Leadon 11-11-2018 [facility] Test Date: 2018-11-10 Pat Name: Dominga Larkin Department: [facility] Room: 1H19 Gender: M Clinical Nurse Specialist: MR : 1950 Requested By: Order Number: [id number] Reading MD: Fili Phoenix Measurements Intervals [place] Rate: 93 P: 63 CA: 153 QRS: -10 QRSD: 98 T: -22 QT: 380 QTc: 473 Interpretive Statements Sinus rhythm Ventricular trigeminy Inferior infarct, age indeterminate Electronically Signed On 11-11-2018 8:10:20 EDT by [employer] [facility], [place] Lars, [facility] Incoming Cardiology Results From [facility] - 11/11/2018 8:11 AM EDT [facility] Test Date: 2018-11-10 Pat Name: Dominga Larkin Department: [facility] Room: [facility] Gender: M Clinical Nurse Specialist: : 1950 Requested By: Order Number: [id number] Reading MD: Fili Phoenix Measurements Intervals [place] Rate: 93 P: 63 CA: 153 QRS: -10 QRSD: 98 T: -22 QT: 380 QTc: 473 Interpretive Statements Sinus rhythm Ventricular trigeminy Inferior infarct, age indeterminate Electronically Signed On 11-11-2018 8:10:20 EDT by [employer] [facility], [place] Glucose,Bedsideon 11-11-2018 Glucose [Mass/Vol] 120 mg/dL High 70-100 [facility] Comment on above: Result Comment: Test performed by glucose meter. Results may be 10%-15% lower than serum/plasma values. (CLIA ID [id number]) Performed By: #### C /SA #### [address] [address] Glucose [Mass/Vol] 262 mg/dL High 70-100 [facility] Comment on above: Result Comment: Test performed by glucose meter. Results may be 10%-15% lower than serum/plasma values. (CLIA ID [id number]) Performed By: #### C /SA #### [facility] [address] [place], [place] Glucose [Mass/Vol] 295 mg/dL High 70-100 [facility] Comment on above: Result Comment: Test performed by glucose meter. Results may be 10%-15% lower than serum/plasma values. (CLIA ID [id number]) Performed By: #### B GLU ####[address] [place], [place] Hemogramon 11-11-2018 Erythrocyte distribution width (RBC) [Ratio] 14.2 % Normal 11.5-14.5 [facility] Comment on above: Performed By: #### H YASEMIN KURTZ3 ####[address] [place], [place] Hematocrit (Bld) [Volume fraction] 33.0 % Low 40.0-52.0 [facility] Comment on above: Performed By: #### YASEMIN HOWE3 ####[address] [place], [place] Hemoglobin (Bld) [Mass/Vol] 11.2 g/dL Low 13.0-18.0 [facility] Comment on above: Performed By: #### YASEMIN HOWE3 ####[address] [place], [place] MCH (RBC) [Entitic mass] 30.2 pg Normal 26.0-34.0 [facility] Comment on above: Performed By: #### H YASEMIN KURTZ3 ####[address] [place] MCHC (RBC) [Mass/Vol] 33.9 % Normal 32.0-36.0 [facility] Comment on above: Performed By: #### H YASEMIN KURTZ3 ####[address] [place] MCV (RBC) [Entitic vol] 88.9 fL Normal 80.0-98.0 [facility] Comment on above: Performed By: #### YASEMIN HOWE3 ####[facility] [place], [place] Platelet mean volume (Bld) [Entitic vol] 8.8 fL Normal 7.4-10.4 [facility] Comment on above: Performed By: #### YASEMIN HOWE3 ####[facility] [place], [place] Platelets (Bld) [#/Vol] 134 10*3/uL Low 140-440 [facility] Comment on above: Performed By: #### YASEMIN HOWE3 ####[facility] [place], [place] RBC (Bld) [#/Vol] 3.72 10*6/uL Low 4.40-5.90 [facility] Comment on above: Performed By: #### YASEMIN HOWE3 ####[facility] [place], [place] WBC (Bld) [#/Vol] 6.3 10*3/uL Normal 3.6-10.7 [facility] Comment on above: Performed By: #### YASEMIN HOWE3 ####[facility] [place] [address] Magnesiumon 11-11-2018 Magnesium [Mass/Vol] 2.2 mg/dL Normal 1.6-2.3 [facility] Comment on above: Performed By: #### C /SA #### [facility] [address] [place], [place] Magnesium [Mass/Vol] 2.2 mg/dL 1.6 - 2 .3 mg/dL [facility], [place] Otheron 11-11-2018 Test Performed by [facility], [address] [place] [address] [facility], [place] POCT Glucoseon 11-11-2018 Glucose [Mass/Vol] 120 mg/dL High 70 - 100 mg/dL [facility] [place], [place] Comment on above: Test performed by gl ucose meter. Results may be 10%-15% lower than serum/plasma values. (CLIA ID [id number]) Interpretation and review of laboratory results Abnormal [facility]- [place], [place] Test Performed by [facility], [address] [place] [address] [facility]- [place], [place] Glucose [Mass/Vol] 262 mg/dL High 70 - 100 mg/dL [facility] [employer]- [place], [place] Comment on above: Test performed by gl ucose meter. Results may be 10%-15% lower than serum/plasma values. (CLIA ID [id number]) Interpretation and review of laboratory results Abnormal [employer]- [place], [place] Test Performed by [facility], [address] [place] [address] [facility], [place] Glucose [Mass/Vol] 295 mg/dL High 70 - 100 mg/dL [facility] [employer] [place], [place] Comment on above: Test performed by gl ucose meter. Results may be 10%-15% lower than serum/plasma values. (CLIA ID [id number]) Interpretation and review of laboratory results Abnormal [facility]- [place], [place] Test Performed by [facility], [address] [place] [address] [facility] [employer] [place], [place] Phosphoruson 11-11-2018 Phosphate [Mass/Vol] 3.4 mg/dL Normal 2.5-4.5 [facility] Comment on above: Performed By: #### C /SA #### [facility] [place] [address] Phosphate [Mass/Vol] 3.4 mg/dL 2.5 - 4 .5 mg/dL [facility], [place] XR CHEST PORTABLEon 11-12-19 19 Patient Name: DOMINGA LARKIN ---Diagnostic Radiology--- Exam Date/Time 11/11/2018 06:41:25 EDT Exam CR Chest Portable Ordering Physician MD MIKE, JERRY Dorsey Accession Number [id number] CPT4 Codes 06869 () Reason For Exam post open heart / sob Report PORTABLE CHEST X-RAY CLINICAL INDICATION: Status post open heart surgery A portable frontal view of the chest was obtained. COMPARISON: 11/10/2018 FINDINGS: Heart size is within normal limits. Sternotomy wires and right jugular sheath appear unchanged. There is mild bilateral basilar atelectasis, similar to the prior study. No new areas of consolidation are seen. There is no pleural effusion or pneumothorax. There are degenerative changes of the spine. IMPRESSION: No significant change when compared with the previous study. Report Dictated on --- Final --- Dictated: 11/11/2018 8:21 am Dictating Physician: MD GRIFFIN JONATHAN R Signed Date and Time: 11/11/2018 8:22 am Signed by: MD GRIFFIN JONATHAN R Transcribed Date and Time: 11/11/2018 8:21 [place], [place] Lars, [employer] Incoming Radiology [facility] - 11/11/2018 8:23 AM EDT Patient Name: DOMINGA LARKIN ---Diagnostic Radiology--- Exam Date/Time 11/11/2018 06:41:25 EDT Exam CR Chest Portable Ordering Physician MD MIKE, JERRY Dorsey Accession Number [id number] CPT4 Codes 80340 () Reason For Exam post open heart / sob Report PORTABLE CHEST X-RAY CLINICAL INDICATION: Status post open heart surgery A portable frontal view of the chest was obtained. COMPARISON: 11/10/2018 FINDINGS: Heart size is within normal limits. Sternotomy wires and right jugular sheath appear unchanged. There is mild bilateral basilar atelectasis, similar to the prior study. No new areas of consolidation are seen. There is no pleural effusion or pneumothorax. There are degenerative changes of the spine. IMPRESSION: No significant change when compared with the previous study. Report Dictated on --- Final --- Dictated: 11/11/2018 8:21 am Dictating Physician: MD GRIFFIN JONATHAN R Signed Date and Time: 11/11/2018 8:22 am Signed by: MD GRIFFIN JONATHAN R Transcribed Date and Time: 11/11/2018 8:21 [facility], [place] Basic Metabolic Panelon 10-26 Anion gap [Moles/Vol] 8 Normal [facility] Comment on above: Performed By: #### H TESSIE, BMP3 ####[facility] [employer] [id number] [place], [place] Calcium [Mass/Vol] 9.0 mg/dL Normal 8.4-10.4 [facility] Comment on above: Performed By: #### H TESSIE, BMP3 ####[facility] [employer] [id number] [place], [place] CO2 [Moles/Vol] 27 mmol/L Normal 22-30 [facility] Comment on above: Performed By: #### H TESSIE, BMP3 ####[facility] [employer] [id number] [place], [place] Glucose [Mass/Vol] 190 mg/dL High 70-100 [facility] Comment on above: Performed By: #### H TESSIE, BMP3 ####[facility] [employer] [address] [place], [place] Urea nitrogen [Mass/Vol] 18 mg/dL Normal 7-20 [facility] Comment on above: Performed By: #### H TESSIE, BMP3 ####[facility] [employer] [id number] [place], [place] Creatinine [Mass/Vol] 0.89 mg/dL Normal 0.52-1.25 [facility] Comment on above: Performed By: #### H TESSIE, BMP3 ####[facility] [employer] [id number] [place], [place] GFR/1.73 sq M predicted among blacks MDRD (S/P/Bld) [Vol rate/Area] mL/min/{1.73_m2} Normal >60 [facility] Comment on above: Performed By: #### H TESSIE, BMP3 ####[facility] [employer] [id number] [place], [place] GFR/1.73 sq M predicted among non-blacks MDRD (S/P/Bld) [Vol rate/Area] mL/min/{1.73_m2} Normal >60 [facility] Comment on above: Result Comment: Sour ce- MDRD equation with creatinine calibration to IDMS(NKDEP) eGFR not recommended for drug dose adjustment Performed By: #### H TESSIE BMP3 ####[facility] [employer] [id number] [place] [address] Chloride [Moles/Vol] 101 mmol/L Normal 98-107 [facility] Comment on above: Performed By: #### H TESSIE, BMP3 ####[facility] [employer] [id number] [place], [place] Potassium [Moles/Vol] 3.7 mmol/L Normal 3.5-5.1 [facility] Comment on above: Performed By: #### H TESSIE BMP3 ####[facility] [employer] [id number] [place], [place] Sodium [Moles/Vol] 136 mmol/L Normal 135-145 [facility] Comment on above: Performed By: #### H TESSIE, BMP3 ####[facility] [employer] [id number] [place], [place] Anion gap [Moles/Vol] 8 mmol/L [place], [place] Calcium [Mass/Vol] 9.0 mg/dL 8.4 - 10. 4 mg/dL [place] Chloride [Moles/Vol] 101 mmol/L 98 - 10 7 mmol/L [place] CO2 [Moles/Vol] 27 mmol/L 22 - 30 mmol/L [place] Creatinine [Mass/Vol] 0.89 mg/dL 0.52 - 1.25 mg/dL [place] EGFR IF NonAfrican [place]er >60.0 >60 mL/min [place] Comment on above: Source- MDRD equatio n with creatinine calibration to IDMS(NKDEP) eGFR not recommended for drug dose adjustment GFR/1.73 sq M predicted among blacks MDRD (S/P/Bld) [Vol rate/Area] mL/min/{1.73_m2} >60 mL/min [place], [place] Glucose [Mass/Vol] 190 mg/dL High 70 - 100 mg/dL [place] Interpretation and review of laboratory results Abnormal [place], [place] Potassium [Moles/Vol] 3.7 mmol/L 3.5 - 5.1 mmol/L [place] Sodium [Moles/Vol] 136 mmol/L 135 - 145 mmol/L [place], [place] Urea nitrogen [Mass/Vol] 18 mg/dL 7 - 20 mg/dL [place] Test Performed by [address] [address] [place], [place] CBCon 11-10-2018 Erythrocyte distribution width (RBC) [Ratio] 14.2 % 11.5 - 14.5 % [place] Hematocrit (Bld) [Volume fraction] 35.5 % Low 40 - 52 % [place] Hemoglobin (Bld) [Mass/Vol] 12.1 g/dL Low 13 - 18 g/dL [place] Interpretation and review of laboratory results Abnormal [place] MCH (RBC) [Entitic mass] 30.2 pg 26 - 34 pg [place] MCHC (RBC) [Mass/Vol] 33.9 % 32 - 36 % Judy [place], [place] MCV (RBC) [Entitic vol] 89.0 fL 80 - 98 fL [place], [place] Platelet mean volume (Bld) [Entitic vol] 8.8 fL 7.4 - 10.4 fL [place], [place] Platelets (Bld) [#/Vol] 130 10*3/uL Low 140 - 440 10*3/uL [place] RBC (Bld) [#/Vol] 3.99 10*6/uL Low 4.4 - 5.9 10*6/uL [place] WBC (Bld) [#/Vol] 6.8 10*3/uL 3.6 - 10.7 10*3/uL [place] Test Performed by [address] [address] [place], [place] CR Chest Portableon 11-11-19 19 CR Chest Portable Patient Name: DOMINGA LARKIN Diagnostic Radiology Exam Date/Time 11/10/2018 06:24:33 EDT Exam CR Chest Portable Ordering Physician MD MIKE, JERRY [employer] Accession Number [id number] CPT4 Codes 27187 () Reason For Exam POST OPEN HEART Report Portable semiupright AP view of the chest, 11/10/2018. Reason for examination: Shortness of breath. COMPARISON: 11/09/2018. FINDINGS: Cardiac size is within normal limits. Pulmonary vasculature is normal. There is atherosclerotic calcification in the aorta. Sternotomy sutures are present. Lung volumes are relatively low. There is mild interstitial prominence which is similar to the prior study. No definite focal infiltrate is noted. No pleural effusion or pneumothorax is identified. Chest tubes and a possible mediastinal drainage catheter noted on the prior study are no longer clearly identified. There is a vascular sheath in the right internal jugular vein. IMPRESSION: Interval removal of chest tubes and possible mediastinal drainage catheter. Report Dictated on Final Dictated: 11/10/2018 6:09 am Dictating Physician: MD THOMAS JOE M Signed Date and Time: 11/10/2018 6:11 am Signed by: MD THOMAS JOE M Transcribed Date and Time: 11/10/2018 6:09 Normal [facility] EKG 12 Leadon 11-10-2018 [place], [facility] Incoming Cardiology Results From [facility] - 11/10/2018 5:47 AM EDT [facility] Test Date: 2018-11-08 Pat Name: [facility] Department: [facility] Room: [facility] Gender: M Clinical Nurse Specialist: GRETA : 1950 Requested By: Order Number: [id number] Reading MD: David Irizarry Measurements Intervals [place] Rate: 75 P: 23 CA: 135 QRS: 0 QRSD: 95 T: -11 QT: 400 QTc: 447 Interpretive Statements Sinus rhythm Inferior infarct, age indeterminate ST elevation, consider anterolateral injury Electronically Signed On 11-10-2018 5:46:55 EDT by David Irizarry [facility] Test Date: 2018-11-08 Pat Name: [facility] Room: [facility] Gender: M Clinical Nurse Specialist: GRETA : 1950 Requested By: Order Number: [id number] Reading MD: David Irizarry Measurements Intervals [place] Rate: 75 P: 23 CA: 135 QRS: 0 QRSD: 95 T: -11 QT: 400 QTc: 447 Interpretive Statements Sinus rhythm Inferior infarct, age indeterminate ST elevation, consider anterolateral injury Electronically Signed On 11-10-2018 5:46:55 EDT by David Irizarry [place], [place] Glucose,Bedsideon 11-10-2018 Glucose [Mass/Vol] 209 mg/dL [address] Comment on above: Result Comment: Test performed by glucose meter. Results may be 10%-15% lower than serum/plasma values. (CLIA ID [id number]) Performed By: #### B GLU ####[employer] [place] [address] Glucose [Mass/Vol] 243 mg/dL [facility] [address] Comment on above: Result Comment: Test performed by glucose meter. Results may be 10%-15% lower than serum/plasma values. (CLIA ID [id number]) Performed By: #### B GLU ####[employer] [place] [address] Glucose [Mass/Vol] 262 mg/dL [facility] [address] Comment on above: Result Comment: Test performed by glucose meter. Results may be 10%-15% lower than serum/plasma values. (CLIA ID [id number]) Performed By: #### B GLU ####[employer] [place] [address] Glucose [Mass/Vol] 242 mg/dL [facility] [address] Comment on above: Result Comment: Test performed by glucose meter. Results may be 10%-15% lower than serum/plasma values. (CLIA ID [id number]) Performed By: #### T SGL #### [facility] [employer] [address] [place] [address] #### LRC #### [facility] [address] [place] [address] Hemogramon 11-10-2018 Erythrocyte distribution width (RBC) [Ratio] 14.2 % Normal 11.5-14.5 [facility] Comment on above: Performed By: #### H YASEMIN KURTZ3 ####[address] [place], [place] Hematocrit (Bld) [Volume fraction] 35.5 % Low 40.0-52.0 [facility] Comment on above: Performed By: #### Reba KURTZ BMP3 ####[address] [place], [place] Hemoglobin (Bld) [Mass/Vol] 12.1 g/dL Low 13.0-18.0 [facility] Comment on above: Performed By: #### YASEMIN HOWE3 ####[address] [place], [place] MCH (RBC) [Entitic mass] 30.2 pg Normal 26.0-34.0 [facility] Comment on above: Performed By: #### YASEMIN HOWE3 ####[address] MCHC (RBC) [Mass/Vol] 33.9 % Normal 32.0-36.0 [facility] Comment on above: Performed By: #### YASEMIN HOWE3 ####[address] [place], [place] MCV (RBC) [Entitic vol] 89.0 fL Normal 80.0-98.0 [facility] Comment on above: Performed By: #### Reba KURTZ BMP3 ####[address] [place] Platelet mean volume (Bld) [Entitic vol] 8.8 fL Normal 7.4-10.4 [facility] Comment on above: Performed By: #### YASEMIN HOWE3 ####[address] [place] Platelets (Bld) [#/Vol] 130 10*3/uL Low 140-440 [facility] Comment on above: Performed By: #### Reba KURTZ BMP3 ####[address] [address] RBC (Bld) [#/Vol] 3.99 10*6/uL Low 4.40-5.90 [facility] Comment on above: Performed By: #### H YASEMIN KURTZ3 ####[address] [place] [address] WBC (Bld) [#/Vol] 6.8 10*3/uL Normal 3.6-10.7 [facility] Comment on above: Performed By: #### H YASEMIN KURTZ3 ####[address] [place] [address] Leukodepleted Red Cellson Leukodepleted Red Cells Leukodepleted Re d Cells: [id number] released 11/09/18 22:49 MSS1 Unit Blood Type: A Unit Blood Rh: POS Blood Product Code: AS1 Unit Number: [id number] Unit Status: released Barcoded Unit Number: =[id number] Barcoded Product Code: = Barcoded ABO/Rh: =%6200 Unit Expiration: [id number] Leukodepleted Red Cells: [id number] released 11/09/18 22:49 MSS1 Unit Blood Type: A Unit Blood Rh: POS Blood Product Code: AS1 Unit Number: [id number] Unit Status: released Barcoded Unit Number: =[id number] Barcoded Product Code: = Barcoded ABO/Rh: =%6200 Unit Expiration: [id number] Normal [facility] Comment on above: Performed By: #### T SGL #### [facility] [address] [place] [address] #### LRC #### [address] [place] [address] POCT Glucoseon 11-10-2018 Glucose [Mass/Vol] 209 mg/dL High 70 - 100 mg/dL [facility] [employer] Comment on above: Test performed by gl ucose meter. Results may be 10%-15% lower than serum/plasma values. (CLIA ID [id number]) Interpretation and review of laboratory results Abnormal [facility] [place], [place] Test Performed by [facility], [address], [place] [address] [facility] [place], [place] Glucose [Mass/Vol] 243 mg/dL High 70 - 100 mg/dL [facility] [employer]- [place], [place] Comment on above: Test performed by gl ucose meter. Results may be 10%-15% lower than serum/plasma values. (CLIA ID [id number]) Interpretation and review of laboratory results Abnormal [facility] [place], [place] Test Performed by [facility], [address] [place] [address] [facility] [place], [place] Glucose [Mass/Vol] 262 mg/dL High 70 - 100 mg/dL [facility] [place], [place] Comment on above: Test performed by gl ucose meter. Results may be 10%-15% lower than serum/plasma values. (CLIA ID [id number]) Interpretation and review of laboratory results Abnormal [employer] [place], [place] Test Performed by [facility], [place] [address] [facility] [place], [place] XR CHEST PORTABLEon 11-11-19 Patient Name: DOMINGA LARKIN ---Diagnostic Radiology--- Exam Date/Time 11/10/2018 06:24:33 EDT Exam CR Chest Portable Ordering Physician MD MIKE, JERRY Dorsey Accession Number [id number] CPT4 Codes 07468 () Reason For Exam POST OPEN HEART Report Portable semiupright AP view of the chest, 11/10/2018. Reason for examination: Shortness of breath. COMPARISON: 11/09/2018. FINDINGS: Cardiac size is within normal limits. Pulmonary vasculature is normal. There is atherosclerotic calcification in the aorta. Sternotomy sutures are present. Lung volumes are relatively low. There is mild interstitial prominence which is similar to the prior study. No definite focal infiltrate is noted. No pleural effusion or pneumothorax is identified. Chest tubes and a possible mediastinal drainage catheter noted on the prior study are no longer clearly identified. There is a vascular sheath in the right internal jugular vein. IMPRESSION: Interval removal of chest tubes and possible mediastinal drainage catheter. Report Dictated on --- Final --- Dictated: 11/10/2018 6:09 am Dictating Physician: MD THOMAS JOE M Signed Date and Time: 11/10/2018 6:11 am Signed by: MD THOMAS JOE M Transcribed Date and Time: 11/10/2018 6:09 [facility], [facility] Incoming Radiology Results From [employer] - 11/10/2018 6:25 AM EDT Patient Name: DOMINGA LARKIN ---Diagnostic Radiology--- Exam Date/Time 11/10/2018 06:24:33 EDT Exam CR Chest Portable Ordering Physician MD MCKEON KEVIN L. Accession Number [id number] CPT4 Codes 55986 () Reason For Exam POST OPEN HEART Report Portable semiupright AP view of the chest, 11/10/2018. Reason for examination: Shortness of breath. COMPARISON: 11/09/2018. FINDINGS: Cardiac size is within normal limits. Pulmonary vasculature is normal. There is atherosclerotic calcification in the aorta. Sternotomy sutures are present. Lung volumes are relatively low. There is mild interstitial prominence which is similar to the prior study. No definite focal infiltrate is noted. No pleural effusion or pneumothorax is identified. Chest tubes and a possible mediastinal drainage catheter noted on the prior study are no longer clearly identified. There is a vascular sheath in the right internal jugular vein. IMPRESSION: Interval removal of chest tubes and possible mediastinal drainage catheter. Report Dictated on --- Final --- Dictated: 11/10/2018 6:09 am Dictating Physician: MD THOMAS JOE M Signed Date and Time: 11/10/2018 6:11 am Signed by: MD THOMAS JOE M Transcribed Date and Time: 11/10/2018 6:09 [facility], [place] Basic Metabolic Panelon 10-26 Calcium [Mass/Vol] 8.5 mg/dL Normal 8.4-10.4 [facility] Comment on above: Performed By: #### T SGL #### [facility] [address] [place] [address] #### LRC #### [address] [place] [address] Glucose [Mass/Vol] 199 mg/dL High 70-100 [facility] Comment on above: Performed By: #### T SGL #### [facility] [address] [place] [address] #### LRC #### [address] [place] [address] Anion gap [Moles/Vol] 5 Normal [facility] Comment on above: Performed By: #### T SGL #### [facility] [address] [place] [facility] [address] #### LRC #### [address] [place] [address] CO2 [Moles/Vol] 28 mmol/L Normal 22-30 [facility] Comment on above: Performed By: #### T SGL #### [address] [place] [address] #### LRC #### [address] [place] [address] Creatinine [Mass/Vol] 0.98 mg/dL Normal 0.52-1.25 [facility] Comment on above: Performed By: #### T SGL #### [address] [place] [address] #### LRC #### [address] [place] [address] GFR/1.73 sq M predicted among blacks MDRD (S/P/Bld) [Vol rate/Area] mL/min/{1.73_m2} Normal >60 [facility] Comment on above: Performed By: #### T SGL #### [address] [place] [address] #### LRC #### [address] [place] [address] GFR/1.73 sq M predicted among non-blacks MDRD (S/P/Bld) [Vol rate/Area] mL/min/{1.73_m2} Normal >60 [facility] Comment on above: Result Comment: Sour ce- MDRD equation with creatinine calibration to IDMS(NKDEP) eGFR not recommended for drug dose adjustment Performed By: #### T SGL #### [facility] [address] [place] [address] #### LRC #### [facility] [address] [place] [address] Urea nitrogen [Mass/Vol] 23 mg/dL High 7-20 [facility] Comment on above: Performed By: #### T SGL #### [facility] [address] [place] [address] #### LRC #### [facility] [address] [place] [address] Chloride [Moles/Vol] 101 mmol/L Normal 98-107 [facility] Comment on above: Performed By: #### T SGL #### [facility] [address] [place] [address] #### LRC #### [address] [place] [address] Potassium [Moles/Vol] 3.8 mmol/L Normal 3.5-5.1 [facility] Comment on above: Performed By: #### T SGL #### [facility] [address] [place] [address] #### LRC #### [address] [place] [address] Sodium [Moles/Vol] 134 mmol/L Low 135-145 [facility] Comment on above: Performed By: #### T SGL #### [address] [place] [address] #### LRC #### [address] [place] [address] Anion gap [Moles/Vol] 5 mmol/L [place], [place] Calcium [Mass/Vol] 8.5 mg/dL 8.4 - 10. 4 mg/dL [place], [place] Chloride [Moles/Vol] 101 mmol/L 98 - 10 7 mmol/L [place] CO2 [Moles/Vol] 28 mmol/L 22 - 30 mmol/L [place] Creatinine [Mass/Vol] 0.98 mg/dL 0.52 - 1.25 mg/dL [place], [place] EGFR IF NonAfrican [place]er >60.0 >60 mL/min [place], [place] Comment on above: Source- MDRD equatio n with creatinine calibration to IDMS(NKDEP) eGFR not recommended for drug dose adjustment GFR/1.73 sq M predicted among blacks MDRD (S/P/Bld) [Vol rate/Area] mL/min/{1.73_m2} >60 mL/min [place] Glucose [Mass/Vol] 199 mg/dL High 70 - 100 mg/dL [place], [place] Interpretation and review of laboratory results Abnormal [place], [place] Potassium [Moles/Vol] 3.8 mmol/L 3.5 - 5.1 mmol/L [place] Sodium [Moles/Vol] 134 mmol/L Low 135 - 145 mmol/L [place] Urea nitrogen [Mass/Vol] 23 mg/dL High 7 - 20 mg/dL [place] CBCon 11-09-2018 Erythrocyte distribution width (RBC) [Ratio] 14.2 % 11.5 - 14.5 % [place] Hematocrit (Bld) [Volume fraction] 32.7 % Low 40 - 52 % [place] Hemoglobin (Bld) [Mass/Vol] 11.2 g/dL Low 13 - 18 g/dL [place] Interpretation and review of laboratory results Abnormal [place] MCH (RBC) [Entitic mass] 30.5 pg 26 - 34 pg [place] MCHC (RBC) [Mass/Vol] 34.2 % 32 - 36 % [place] MCV (RBC) [Entitic vol] 89.1 fL 80 - 98 fL [place], [place] Platelet mean volume (Bld) [Entitic vol] 8.7 fL 7.4 - 10.4 fL [place] Platelets (Bld) [#/Vol] 108 10*3/uL Low 140 - 440 10*3/uL [place] RBC (Bld) [#/Vol] 3.68 10*6/uL Low 4.4 - 5.9 10*6/uL [place] WBC (Bld) [#/Vol] 7.7 10*3/uL 3.6 - 10.7 10*3/uL [facility], [address] [place] [address] [facility] Chest Portableon 11-10-19 19 CR Chest Portable Patient Name: DOMINGA LARKIN Diagnostic Radiology Exam Date/Time 11/09/2018 06:13:51 EDT Exam CR Chest Portable Ordering Physician MD MIKE, JERRY Dorsey Accession Number [id number] CPT4 Codes 23518 () Reason For Exam post open heart Report PORTABLE CHEST: INDICATION: Postop COMPARISON: 11/08/2018 Obtained at 0527 hours. A single portable AP radiograph of the chest was obtained. The heart is normal in size. The mediastinal silhouette is normal. There are changes associated with recent open heart surgery. Bilateral chest tubes are present as is a mediastinal tube. There is no pneumothorax. There are no effusions or infiltrates. There is no pleural thickening. The osseous structures are unremarkable. IMPRESSION: Postoperative changes. No acute process Report Dictated on Workstation: [id number] Final Dictated: 11/09/2018 5:56 am Dictating Physician: DO GARCIA ALFRED Signed Date and Time: 11/09/2018 5:57 am Signed by: DO GARCIA ALFRED Transcribed Date and Time: 11/09/2018 5:56 Normal [facility] EKG 12 leadon 11-09-2018 [facility] Test Date: 2018-11-08 Pat Name: Dominga Larkin Department: 1AHLU Room: [facility] Gender: M Clinical Nurse Specialist: GRETA : 1950 Requested By: Order Number: [id number] Reading MD: David Irizarry Measurements Intervals [place] Rate: 124 P: CA: QRS: -29 QRSD: 153 T: 147 QT: 359 QTc: 516 Interpretive Statements Atrial fibrillation Multiple ventricular premature complexes Left bundle branch block Electronically Signed On 11-09-2018 19:39:55 EDT by David Irizarry [facility], [place] Lars, [facility] Incoming Cardiology Results From [facility] - 11/09/2018 7:40 PM EDT [facility] Test Date: 2018-11-08 Pat Name: Dominga Larkin Department: 1AHLU Room: [facility] Gender: M Clinical Nurse Specialist: GRETA : 1950 Requested By: Order Number: [id number] Reading MD: David Irizarry Measurements Intervals [place] Rate: 124 P: CA: QRS: -29 QRSD: 153 T: 147 QT: 359 QTc: 516 Interpretive Statements Atrial fibrillation Multiple ventricular premature complexes Left bundle branch block Electronically Signed On 11-09-2018 19:39:55 EDT by David Irizarry [place], [place] Glucose,Bedsideon 11-09-2018 Glucose [Mass/Vol] 203 mg/dL [facility] [address] [facility] Comment on above: Result Comment: Test performed by glucose meter. Results may be 10%-15% lower than serum/plasma values. (CLIA ID [id number]) Performed By: #### T SGL #### [facility] [address] [place] [address] #### LRC #### [address] [place] [address] Glucose [Mass/Vol] 257 mg/dL High [address] [facility] Comment on above: Result Comment: Test performed by glucose meter. Results may be 10%-15% lower than serum/plasma values. (CLIA ID [id number]) Performed By: #### T SGL #### [facility] [address] [place] [address] #### LRC #### [address] [place] [address] Glucose [Mass/Vol] 248 mg/dL High 70-100 [facility] Comment on above: Result Comment: Test performed by glucose meter. Results may be 10%-15% lower than serum/plasma values. (CLIA ID [id number]) Performed By: #### T SGL #### [facility] [address] [place] [address] #### LRC #### [address] [place] [address] Hematologyon 11-09-2018 ABO and Rh group Nom (Bld) 6200 [place], [place] Hemogramon 11-09-2018 Erythrocyte distribution width (RBC) [Ratio] 14.2 % Normal 11.5-14.5 [facility] Comment on above: Performed By: #### T SGL #### [facility] [address] [place] [address] #### LRC #### [address] [place] [address] Hematocrit (Bld) [Volume fraction] 32.7 % Low 40.0-52.0 [facility] Comment on above: Performed By: #### T SGL #### [address] [place] [address] #### LRC #### [address] [place] [address] Hemoglobin (Bld) [Mass/Vol] 11.2 g/dL Low 13.0-18.0 [facility] Comment on above: Performed By: #### T SGL #### [address] [place] [address] #### LRC #### [address] [place] [address] MCH (RBC) [Entitic mass] 30.5 pg Normal 26.0-34.0 [facility] Comment on above: Performed By: #### T SGL #### [address] [place] [address] #### LRC #### [address] [place] [address] MCHC (RBC) [Mass/Vol] 34.2 % Normal 32.0-36.0 [facility] Comment on above: Performed By: #### T SGL #### [address] [place] [address] #### LRC #### [address] [place] [address] MCV (RBC) [Entitic vol] 89.1 fL Normal 80.0-98.0 [facility] Comment on above: Performed By: #### T SGL #### [address] [place] [address] #### LRC #### [address] [place] [address] Platelet mean volume (Bld) [Entitic vol] 8.7 fL Normal 7.4-10.4 [facility] Comment on above: Performed By: #### T SGL #### [address] [place] [address] #### LRC #### [address] [facility] [place] [address] Platelets (Bld) [#/Vol] 108 10*3/uL Low 140-440 [facility] Comment on above: Performed By: #### T SGL #### [address] [place] [address] #### LRC #### [address] [place] [address] RBC (Bld) [#/Vol] 3.68 10*6/uL Low 4.40-5.90 [facility] Comment on above: Performed By: #### T SGL #### [address] [place] [address] #### LRC #### [address] [place] [address] WBC (Bld) [#/Vol] 7.7 10*3/uL Normal 3.6-10.7 [facility] Comment on above: Performed By: #### T SGL #### [address] [place] [address] #### LRC #### [address] [place] [address] Magnesiumon 11-09-2018 Magnesium [Mass/Vol] 2.2 mg/dL Normal 1.6-2.3 [facility] Comment on above: Performed By: #### T SGL #### [address] [place] [address] #### LRC #### [address] [place] [address] Magnesium [Mass/Vol] 2.2 mg/dL 1.6 - 2 .3 mg/dL [place], [place] Metabolic Panelon 11-09-2018 Sodium [Moles/Vol] released [place], [place] Sodium [Moles/Vol] [id number] [facility], [place] Otheron 11-09-2018 Test Performed by [facility] [facility], [address] [place] [address] [place], [place] POCT Glucoseon 11-09-2018 Glucose [Mass/Vol] 242 mg/dL High 70 - 100 mg/dL [place], [place] Comment on above: Test performed by gl ucose meter. Results may be 10%-15% lower than serum/plasma values. (CLIA ID [id number]) Interpretation and review of laboratory results Abnormal [facility] [place] Test Performed by [employer] [facility], [address] [place] [address] [place], [place] Glucose [Mass/Vol] 203 mg/dL High 70 - 100 mg/dL [place], [place] Comment on above: Test performed by gl ucose meter. Results may be 10%-15% lower than serum/plasma values. (CLIA ID [id number]) Interpretation and review of laboratory results Abnormal [facility] [place] Test Performed by [employer] [facility], [address] [place] [address] [place], [place] Glucose [Mass/Vol] 257 mg/dL High 70 - 100 mg/dL [place] Comment on above: Test performed by gl ucose meter. Results may be 10%-15% lower than serum/plasma values. (CLIA ID [id number]) Interpretation and review of laboratory results Abnormal [facility] [employer], [place] Test Performed by [employer] [facility], [address] [place] [address] [place], [place] Glucose [Mass/Vol] 248 mg/dL High 70 - 100 mg/dL [place] Comment on above: Test performed by gl ucose meter. Results may be 10%-15% lower than serum/plasma values. (CLIA ID [id number]) Interpretation and review of laboratory results Abnormal [facility] [employer] [place], [place] Test Performed by [employer] [facility], [address] [place] [place] [address] [place] PREPARE RBC (CROSSMATCH)on 0 11-09-2018 Blood product unit ID (Dose) [#] [id number] [place], [place] Blood product unit ID (Dose) [#] [id number] [place] Sodium [Moles/Vol] [id number] mmol/L [place] Sodium [Moles/Vol] [id number] mmol/L [place], [place] XR CHEST PORTABLEon 11-10-19 Patient Name: DOMINGA LARKIN ---Diagnostic Radiology--- Exam Date/Time 11/09/2018 06:13:51 EDT Exam CR Chest Portable Ordering Physician MD MCKEON KEVIN L. Accession Number [id number] CPT4 Codes 65469 () Reason For Exam post open heart Report PORTABLE CHEST: INDICATION: Postop COMPARISON: 11/08/2018 Obtained at 0527 hours. A single portable AP radiograph of the chest was obtained. The heart is normal in size. The mediastinal silhouette is normal. There are changes associated with recent open heart surgery. Bilateral chest tubes are present as is a mediastinal tube. There is no pneumothorax. There are no effusions or infiltrates. There is no pleural thickening. The osseous structures are unremarkable. IMPRESSION: Postoperative changes. No acute process Report Dictated on Workstation: [id number] --- Final --- Dictated: 11/09/2018 5:56 am Dictating Physician: DO GARCIA ALFRED Signed Date and Time: 11/09/2018 5:57 am Signed by: DO GARCIA ALFRED Transcribed Date and Time: 11/09/2018 5:56 [place], [place], [employer] Incoming Radiology [facility] From [facility] - 11/09/2018 6:14 AM EDT Patient Name: DOMINGA LARKIN ---Diagnostic Radiology--- Exam Date/Time 11/09/2018 06:13:51 EDT Exam CR Chest Portable Ordering Physician MD MCKEON KEVIN L. Accession Number [id number] CPT4 Codes 82941 () Reason For Exam post open heart Report PORTABLE CHEST: INDICATION: Postop COMPARISON: 11/08/2018 Obtained at 0527 hours. A single portable AP radiograph of the chest was obtained. The heart is normal in size. The mediastinal silhouette is normal. There are changes associated with recent open heart surgery. Bilateral chest tubes are present as is a mediastinal tube. There is no pneumothorax. There are no effusions or infiltrates. There is no pleural thickening. The osseous structures are unremarkable. IMPRESSION: Postoperative changes. No acute process Report Dictated on Workstation: [id number] --- Final --- Dictated: 11/09/2018 5:56 am Dictating Physician: DO GARCIA ALFRED Signed Date and Time: 11/09/2018 5:57 am Signed by: DO GARCIA ALFRED Transcribed Date and Time: 11/09/2018 5:56 [place], [place] Basic Metabolic Panelon 10-26 Anion gap [Moles/Vol] 7 mmol/L [place], [place] EGFR IF NonAfrican [place]er 56.8 mL/min >60 [place] Comment on above: Source- MDRD equatio n with creatinine calibration to IDMS(NKDEP) eGFR not recommended for drug dose adjustment Anion gap [Moles/Vol] 7 Normal [facility] Comment on above: Performed By: #### T SGL #### [address] [place] [address] #### LRC #### [address] [place] [address] Calcium [Mass/Vol] 8.4 mg/dL Normal 8.4-10.4 [place] Comment on above: Performed By: #### T SGL #### [facility] [address] [place] [address] #### LRC #### [facility] [address] [place] [address] CO2 [Moles/Vol] 25 mmol/L Normal 22-30 [place], [place] Comment on above: Performed By: #### T SGL #### [facility] [address] [place] [address] #### LRC #### [address] [place] [address] Glucose [Mass/Vol] 223 mg/dL High 70-100 [place], [place] Comment on above: Performed By: #### T SGL #### [address] [place] [address] #### LRC #### [facility] [address] [place] [address] Urea nitrogen [Mass/Vol] 26 mg/dL High 7-20 [place], [place] Comment on above: Performed By: #### T SGL #### [address] [place] [address] #### LRC #### [address] [place] [address] Creatinine [Mass/Vol] 1.27 mg/dL High 0.52-1.25 [place], [place] Comment on above: Performed By: #### T SGL #### [address] [place] [address] #### LRC #### [address] [place] [address] GFR/1.73 sq M predicted among blacks MDRD (S/P/Bld) [Vol rate/Area] mL/min/{1.73_m2} Normal >60 [place], [place] Comment on above: Performed By: #### T SGL #### [address] [place] [address] #### LRC #### [address] [place] [address] GFR/1.73 sq M predicted among non-blacks MDRD (S/P/Bld) [Vol rate/Area] 56.8 mL/min/{1.73_m2} Normal >60 [facility] Comment on above: Result Comment: Sour ce- MDRD equation with creatinine calibration to IDMS(NKDEP) eGFR not recommended for drug dose adjustment Performed By: #### T SGL #### [address] [place] [address] #### LRC #### [address] [place] [address] Chloride [Moles/Vol] 102 mmol/L Normal 98-107 [place], [place] Comment on above: Performed By: #### T SGL #### [address] [place] [address] #### LRC #### [address] [place] [address] Potassium [Moles/Vol] 4.3 mmol/L Normal 3.5-5.1 [place] Comment on above: Performed By: #### T SGL #### [facility] [address] [place] [address] #### LRC #### [address] [place] [address] Sodium [Moles/Vol] 135 mmol/L Normal 135-145 [place], [place] Comment on above: Performed By: #### T SGL #### [address] [place] [address] #### LRC #### [address] [place] [address] CBCon 11-08-2018 Erythrocyte distribution width (RBC) [Ratio] 14.7 % High 11.5 - 14.5 % [place] Hematocrit (Bld) [Volume fraction] 34.9 % Low 40 - 52 % [place] Hemoglobin (Bld) [Mass/Vol] 11.8 g/dL Low 13 - 18 g/dL [place] Interpretation and review of laboratory results Abnormal [place] MCH (RBC) [Entitic mass] 30.6 pg 26 - 34 pg [place] MCHC (RBC) [Mass/Vol] 33.9 % 32 - 36 % [place] MCV (RBC) [Entitic vol] 90.5 fL 80 - 98 fL [place], [place] Platelet mean volume (Bld) [Entitic vol] 8.8 fL 7.4 - 10.4 fL [place] Platelets (Bld) [#/Vol] 124 10*3/uL Low 140 - 440 10*3/uL [place] RBC (Bld) [#/Vol] 3.86 10*6/uL Low 4.4 - 5.9 10*6/uL [place] WBC (Bld) [#/Vol] 13.2 10*3/uL High 3.6 - 10.7 10*3/uL [place] Test Performed by [facility], [address] [place] [address] [place], [place] CR Chest Portableon 11-09-19 19 CR Chest Portable Patient Name: DOMINGA LARKIN Diagnostic Radiology Exam Date/Time 11/08/2018 07:42:48 EDT Exam CR Chest Portable Ordering Physician MD MCKEON KEVIN L. Accession Number [id number] CPT4 Codes 57543 () Reason For Exam short of breath Report Portable chest 11/08/2018: Clinical Information: Dyspnea. Findings: A single AP portable view of the chest was obtained at 657 hours. Comparison was made to the prior study prior day. The various lines and tubes are unchanged. There is minimal atelectasis in both lung bases. No pulmonary vascular congestion or consolidation is otherwise identified. 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: : 1950 Requested By: Order Number: [id number] Reading MD: David Irizarry Measurements Intervals [place] Rate: 68 P: 19 CA: 156 QRS: -13 QRSD: 97 T: -15 QT: 445 QTc: 474 Interpretive Statements Sinus rhythm Inferior infarct, age indeterminate Borderline ST elevation, anterolateral leads Electronically Signed On 11-08-2018 12:34:55 EDT by David Irizarry [facility] AYDEN Lars, [facility] Incoming Cardiology Results From [facility] - 11/08/2018 12:36 PM EDT [facility] Test Date: 2018-11-07 Pat Name: Dominga Larkin Department: 1AHLU Room: [facility] Gender: M Clinical Nurse Specialist: AALIYAH : 1950 Requested By: Order Number: [id number] Reading MD: David Irizarry Measurements Intervals [place] Rate: 68 P: 19 CA: 156 QRS: -13 QRSD: 97 T: -15 QT: 445 QTc: 474 Interpretive Statements Sinus rhythm Inferior infarct, age indeterminate Borderline ST elevation, anterolateral leads Electronically Signed On 11-08-2018 12:34:55 EDT by David Irizarry [place], [place] Glucose,Bedsideon 11-08-2018 Glucose [Mass/Vol] 237 mg/dL High [address] Comment on above: Result Comment: Test performed by glucose meter. Results may be 10%-15% lower than serum/plasma values. (CLIA ID [id number]) Performed By: #### T SGL #### [facility] [address] [place] [address] #### LRC #### [facility] [address] [place] [address] Glucose [Mass/Vol] 284 mg/dL [facility] [address] [facility] Comment on above: Result Comment: Test performed by glucose meter. Results may be 10%-15% lower than serum/plasma values. (CLIA ID [id number]) Performed By: #### T SGL #### [facility] [address] [place] [address] #### LRC #### [facility] [address] [place] [address] Glucose [Mass/Vol] 244 mg/dL High [address] [facility] Comment on above: Result Comment: Test performed by glucose meter. Results may be 10%-15% lower than serum/plasma values. (CLIA ID [id number]) Performed By: #### T SGL #### [facility] [address] [place] [address] #### LRC #### [facility] [address] [place] [address] Glucose [Mass/Vol] 229 mg/dL High 70-100 [facility] Comment on above: Result Comment: Test performed by glucose meter. Results may be 10%-15% lower than serum/plasma values. (CLIA ID [id number]) Performed By: #### T SGL #### [address] [place] [address] #### LRC #### [address] [place] [address] Hemogramon 11-08-2018 Erythrocyte distribution width (RBC) [Ratio] 14.7 % High 11.5-14.5 [facility] Comment on above: Performed By: #### T SGL #### [address] [place] [address] #### LRC #### [address] [place] [address] Hematocrit (Bld) [Volume fraction] 34.9 % Low 40.0-52.0 [facility] Comment on above: Performed By: #### T SGL #### [address] [place] [address] #### LRC #### [address] [place] [address] Hemoglobin (Bld) [Mass/Vol] 11.8 g/dL Low 13.0-18.0 [facility] Comment on above: Performed By: #### T SGL #### [address] [place] [address] #### LRC #### [address] [place] [address] MCH (RBC) [Entitic mass] 30.6 pg Normal 26.0-34.0 [facility] Comment on above: Performed By: #### T SGL #### [address] [place] [address] #### LRC #### [address] [place] [address] MCHC (RBC) [Mass/Vol] 33.9 % Normal 32.0-36.0 [facility] Comment on above: Performed By: #### T SGL #### [address] [place] [address] #### LRC #### [address] [place] [address] MCV (RBC) [Entitic vol] 90.5 fL Normal 80.0-98.0 [facility] Comment on above: Performed By: #### T SGL #### [address] [place] [address] #### LRC #### [address] [place] [address] Platelet mean volume (Bld) [Entitic vol] 8.8 fL Normal 7.4-10.4 [facility] Comment on above: Performed By: #### T SGL #### [address] [place] [address] #### LRC #### [address] [place] [address] Platelets (Bld) [#/Vol] 124 10*3/uL Low 140-440 [facility] Comment on above: Performed By: #### T SGL #### [address] [place] [address] #### LRC #### [address] [place] [address] RBC (Bld) [#/Vol] 3.86 10*6/uL Low 4.40-5.90 [facility] Comment on above: Performed By: #### T SGL #### [address] [place] [address] #### LRC #### [address] [place] [address] WBC (Bld) [#/Vol] 13.2 10*3/uL High 3.6-10.7 [facility] Comment on above: Performed By: #### T SGL #### [address] [place] [address] #### LRC #### [address] [place] [address] Magnesiumon 11-08-2018 Magnesium [Mass/Vol] 2.1 mg/dL Normal 1.6-2.3 [facility], [place] Comment on above: Performed By: #### T SGL #### [facility] [address] [place] [address] #### LRC #### [facility] [address] [place] [address] Otheron 11-08-2018 Interpretation and review of laboratory results Abnormal [facility] [employer] [place], [place] Test Performed by [facility], [address] [place] [address] [facility], [place] POCT Glucoseon 11-08-2018 Glucose [Mass/Vol] 237 mg/dL High 70 - 100 mg/dL [facility], [place] Comment on above: Test performed by gl ucose meter. Results may be 10%-15% lower than serum/plasma values. (CLIA ID [id number]) Interpretation and review of laboratory results Abnormal [employer] [place], [place] Test Performed by [employer] [facility], [address] [place] [address] [facility], [place] Glucose [Mass/Vol] 284 mg/dL High 70 - 100 mg/dL [facility], [place] Comment on above: Test performed by gl ucose meter. Results may be 10%-15% lower than serum/plasma values. (CLIA ID [id number]) Glucose [Mass/Vol] 244 mg/dL High 70 - 100 mg/dL [facility], [place] Comment on above: Test performed by gl ucose meter. Results may be 10%-15% lower than serum/plasma values. (CLIA ID [id number]) Interpretation and review of laboratory results Abnormal [facility] [employer], [place] Test Performed by [employer] [facility], [address] [place] [address] [place], [place] Glucose [Mass/Vol] 229 mg/dL High 70 - 100 mg/dL [facility], [place] Comment on above: Test performed by gl ucose meter. Results may be 10%-15% lower than serum/plasma values. (CLIA ID [id number]) Interpretation and review of laboratory results Abnormal [facility] [employer], [place] Test Performed by [employer] [facility], [address] [place] [address] [facility], [place] XR CHEST PORTABLEon 11-09-19 19 Lars, [facility] Incoming Radiology Results From [facility] - 11/08/2018 1:43 PM EDT Patient Name: DOMINGA LARKIN ---Diagnostic Radiology--- Exam Date/Time 11/08/2018 07:42:48 EDT Exam CR Chest Portable Ordering Physician MD MCKEON KEVIN L. Accession Number [id number] CPT4 Codes 64030 () Reason For Exam short of breath Report Portable chest 11/08/2018: Clinical Information: Dyspnea. Findings: A single AP portable view of the chest was obtained at 657 hours. Comparison was made to the prior study prior day. The various lines and tubes are unchanged. There is minimal atelectasis in both lung bases. No pulmonary vascular congestion or consolidation is otherwise identified. Report Dictated on --- Final --- Dictated: 11/08/2018 1:41 pm Dictating Physician: MD IRIZARRY RISA Signed Date and Time: 11/08/2018 1:42 pm Signed by: MD IRIZARRY RISA Transcribed Date and Time: 11/08/2018 1:41 [place], [place] Patient Name: DOMINGA LARKIN ---Diagnostic Radiology--- Exam Date/Time 11/08/2018 07:42:48 EDT Exam CR Chest Portable Ordering Physician MD MCKEON KEVIN L. Accession Number [id number] CPT4 Codes 08290 () Reason For Exam short of breath Report Portable chest 11/08/2018: Clinical Information: Dyspnea. Findings: A single AP portable view of the chest was obtained at 657 hours. Comparison was made to the prior study prior day. The various lines and tubes are unchanged. There is minimal atelectasis in both lung bases. No pulmonary vascular congestion or consolidation is otherwise identified. Report Dictated on --- Final --- Dictated: 11/08/2018 1:41 pm Dictating Physician: MD IRIZARRY RISA Signed Date and Time: 11/08/2018 1:42 pm Signed by: MD IRIZARRY RISA Transcribed Date and Time: 11/08/2018 1:41 [place], [place] Basic Metabolic Panelon - Calcium [Mass/Vol] 8.5 mg/dL Normal 8.4-10.4 [facility] Comment on above: Performed By: #### T SGL #### [facility] [address] [place] [address] #### LRC #### [facility] [address] [place] [address] Anion gap [Moles/Vol] 8 Normal [facility] Comment on above: Performed By: #### T SGL #### [facility] [address] [place] [address] #### LRC #### [address] [place] [address] CO2 [Moles/Vol] 23 mmol/L Normal 22-30 [facility] Comment on above: Performed By: #### T SGL #### [facility] [address] [place] [address] #### LRC #### [address] [place] [address] Creatinine [Mass/Vol] 1.31 mg/dL High 0.52-1.25 [facility] Comment on above: Performed By: #### T SGL #### [facility] [address] [place] [address] #### LRC #### [address] [place] [address] GFR/1.73 sq M predicted among blacks MDRD (S/P/Bld) [Vol rate/Area] mL/min/{1.73_m2} Normal >60 [facility] Comment on above: Performed By: #### T SGL #### [facility] [address] [place] [address] #### LRC #### [address] [place] [address] GFR/1.73 sq M predicted among non-blacks MDRD (S/P/Bld) [Vol rate/Area] 54.8 mL/min/{1.73_m2} Normal >60 [facility] Comment on above: Result Comment: Sour ce- MDRD equation with creatinine calibration to IDMS(NKDEP) eGFR not recommended for drug dose adjustment Performed By: #### T SGL #### [facility] [address] [place] [address] #### LRC #### [facility] [address] [place] [address] Glucose [Mass/Vol] 255 mg/dL High 70-100 [facility] Comment on above: Performed By: #### T SGL #### [address] [place] [address] #### LRC #### [facility] [address] [place] [address] Urea nitrogen [Mass/Vol] 28 mg/dL High 7-20 [facility] Comment on above: Performed By: #### T SGL #### [address] [place] [address] #### LRC #### [address] [place] [address] Chloride [Moles/Vol] 102 mmol/L Normal 98-107 [facility] Comment on above: Performed By: #### T SGL #### [address] [place] [address] #### LRC #### [address] [place] [address] Potassium [Moles/Vol] 4.3 mmol/L Normal 3.5-5.1 [facility] Comment on above: Performed By: #### T SGL #### [address] [place] [address] #### LRC #### [address] [place] [address] Sodium [Moles/Vol] 133 mmol/L Low 135-145 [facility] Comment on above: Performed By: #### T SGL #### [address] [place] [address] #### LRC #### [address] [place] [address] Anion gap [Moles/Vol] 8 mmol/L [facility], [place] Calcium [Mass/Vol] 8.5 mg/dL 8.4 - 10. 4 mg/dL [place] Chloride [Moles/Vol] 102 mmol/L 98 - 10 7 mmol/L [place] CO2 [Moles/Vol] 23 mmol/L 22 - 30 mmol/L [place] Creatinine [Mass/Vol] 1.31 mg/dL High 0.52 - 1.25 mg/dL [place], [place] EGFR IF NonAfrican [place]er 54.8 mL/min >60 [place], [place] Comment on above: Source- MDRD equatio n with creatinine calibration to IDMS(NKDEP) eGFR not recommended for drug dose adjustment GFR/1.73 sq M predicted among blacks MDRD (S/P/Bld) [Vol rate/Area] mL/min/{1.73_m2} >60 mL/min [place], [place] Glucose [Mass/Vol] 255 mg/dL High 70 - 100 mg/dL [place] Interpretation and review of laboratory results Abnormal [place] Potassium [Moles/Vol] 4.3 mmol/L 3.5 - 5.1 mmol/L [place] Sodium [Moles/Vol] 133 mmol/L Low 135 - 145 mmol/L [place], [place] Urea nitrogen [Mass/Vol] 28 mg/dL High 7 - 20 mg/dL [place] Calcium [Mass/Vol] 8.4 mg/dL Normal 8.4-10.4 [facility] Comment on above: Performed By: #### A PTT, PT, LFT3 #### [facility] [address] [place], [place] Anion gap [Moles/Vol] 7 Normal [facility] Comment on above: Performed By: #### A PTT, PT, LFT3 #### [facility] [address] [place], [place] CO2 [Moles/Vol] 23 mmol/L Normal 22-30 [facility] Comment on above: Performed By: #### A PTT, PT, LFT3 #### [facility] [address] [place], [place] Creatinine [Mass/Vol] 1.56 mg/dL High 0.52-1.25 [facility] Comment on above: Performed By: #### A PTT, PT, LFT3 #### [address] [place] [address] GFR/1.73 sq M predicted among blacks MDRD (S/P/Bld) [Vol rate/Area] 54.3 mL/min/{1.73_m2} Normal >60 [facility] Comment on above: Performed By: #### A PTT, PT, LFT3 #### [address] [place] [address] GFR/1.73 sq M predicted among non-blacks MDRD (S/P/Bld) [Vol rate/Area] 44.8 mL/min/{1.73_m2} Normal >60 [facility] Comment on above: Result Comment: Sour ce- MDRD equation with creatinine calibration to IDMS(NKDEP) eGFR not recommended for drug dose adjustment Performed By: #### A PTT, PT, LFT3 #### [address] [place], [place] Glucose [Mass/Vol] 75 mg/dL Normal 70-100 [facility] Comment on above: Performed By: #### A PTT, PT, LFT3 #### [address] [place], [place] Urea nitrogen [Mass/Vol] 28 mg/dL High 7-20 [facility] Comment on above: Performed By: #### A PTT, PT, LFT3 #### [address] [place] [address] Chloride [Moles/Vol] 110 mmol/L High 98-107 [facility] Comment on above: Performed By: #### A PTT, PT, LFT3 #### [address] [place] [address] Potassium [Moles/Vol] 4.2 mmol/L Normal 3.5-5.1 [facility] Comment on above: Performed By: #### A PTT, PT, LFT3 #### [address] [place] Sodium [Moles/Vol] 140 mmol/L Normal 135-145 [facility] Comment on above: Performed By: #### A PTT, PT, LFT3 #### [facility] [address] [place], [place] Anion gap [Moles/Vol] 7 mmol/L [place], [place] Calcium [Mass/Vol] 8.4 mg/dL 8.4 - 10. 4 mg/dL [place] Chloride [Moles/Vol] 110 mmol/L High 98 - 10 7 mmol/L [place] CO2 [Moles/Vol] 23 mmol/L 22 - 30 mmol/L [place] Creatinine [Mass/Vol] 1.56 mg/dL High 0.52 - 1.25 mg/dL [place] EGFR IF NonAfrican [place] 44.8 mL/min >60 [place] Comment on above: Source- MDRD equatio n with creatinine calibration to IDMS(NKDEP) eGFR not recommended for drug dose adjustment GFR/1.73 sq M predicted among blacks MDRD (S/P/Bld) [Vol rate/Area] 54.3 mL/min/{1.73_m2} >60 [place] Glucose [Mass/Vol] 75 mg/dL 70 - 100 mg/dL [place] Potassium [Moles/Vol] 4.2 mmol/L 3.5 - 5.1 mmol/L [place] Sodium [Moles/Vol] 140 mmol/L 135 - 145 mmol/L [place] Urea nitrogen [Mass/Vol] 28 mg/dL High 7 - 20 mg/dL [place] CBCon 11-07-2018 Erythrocyte distribution width (RBC) [Ratio] 14.0 % 11.5 - 14.5 % [place] Hematocrit (Bld) [Volume fraction] 33.5 % Low 40 - 52 % [place] Hemoglobin (Bld) [Mass/Vol] 11.5 g/dL Low 13 - 18 g/dL [place] Interpretation and review of laboratory results Abnormal [place] MCH (RBC) [Entitic mass] 30.8 pg 26 - 34 pg [place] MCHC (RBC) [Mass/Vol] 34.3 % 32 - 36 % [place], [place] MCV (RBC) [Entitic vol] 89.7 fL 80 - 98 fL [place], [place] Platelet mean volume (Bld) [Entitic vol] 8.4 fL 7.4 - 10.4 fL [place] Platelets (Bld) [#/Vol] 122 10*3/uL Low 140 - 440 10*3/uL [place] RBC (Bld) [#/Vol] 3.74 10*6/uL Low 4.4 - 5.9 10*6/uL [place] WBC (Bld) [#/Vol] 11.3 10*3/uL High 3.6 - 10.7 10*3/uL [place] Test Performed by [facility], [address] [place] [id number] [place] [address] CR Chest Portableon 11-08-19 19 CR Chest Portable Patient Name: DOMINGA LARKIN Diagnostic Radiology Exam Date/Time 11/07/2018 07:01:32 EDT Exam CR Chest Portable Ordering Physician MD MCKEON KEVIN L. Accession Number [id number] CPT4 Codes 87672 () Reason For Exam Post op open heart,Shortness of breath. Report CHEST (Frontal View) History: Respiratory abnormality Comparison: 11/06/2018 Findings: Frontal portable chest view shows cardiomegaly with mild pulmonary congestion. There is linear small right basilar atelectasis. There has been sternotomy. [place] catheter, tracheal and enteric tubes have been removed. The tip of right IJ catheter sheath overlies the SVC. Bilateral chest tubes are noted. There is no appreciable pneumothorax, pleural effusion, or other significant interval change. Report Dictated on Final Dictated: 11/07/2018 8:58 am Dictating Physician: MD ALEC, [facility] Signed Date and Time: 11/07/2018 9:00 am Signed by: MD ALEC, AHMAD Transcribed Date and Time: 11/07/2018 8:58 Normal [facility] Calcium, Ionizedon 9 Ionized Ca 4.40 mg/dL 4.3 - 5.2 mg/dL [place] pH (Bld) 7.34 [pH] [place] Test Performed by [facility], [address] [place] [id number] [place] [address] Calcium,Ionizedon 11-07-2018 Ionized Ca,Measured 4.40 mg/dL Normal 4.30-5.20 [facility] Comment on above: Performed By: #### A PTT, PT, LFT3 #### [address] [address] pH, Ionized Calcium 7.34 Normal 7.31-7.46 [facility] Comment on above: Performed By: #### A PTT, PT, LFT3 #### [address] [address] ECHO Transesophagealon 11-07 Lars, [facility] Incoming Cardiology Results From [facility] - 11/07/2018 3:23 PM EDT TRANSESOPHAGEAL ECHOCARDIOGRAM Intraoperative-Pre Pump Only PATIENT: Dominga Larkin STUDY DATE: 11/06/2018 : 1950 AGE: 67 HT/WT: 175.3 cm (69 92.7 kg (204 in) lb) GENDER: M BP: 105 / 60 LOCATION: [facility] PATIENT Inpatient [facility] STATUS: *ORDERING PHYSICIAN: * Jerry Mckeon *READING PHYSICIAN: * Mario Flores MD *INFORMATION OPERATOR: * Juana SZYMANSKI ------ --- INDICATIONS: CAD, Unspecified ([id number]). ------ --- CONCLUSIONS SUMMARY: 1. Pre: CABG patient as described below. all findings discussed with surgical team. ------ --- STUDY DATA: Operative transesophageal echocardiogram. Procedure: The procedure was performed with the patient intubated under general anesthesia on the operating table. A complete pre-operative DANIEL was performed. Image quality was goodA transesophageal probe was inserted by the anesthesiologistwithout difficulty. Complete 2D, complete spectral Doppler, and color flow Doppler images were acquired and archived for permanent storage and are available for subsequent review. Study status: Routine. Patient status: Inpatient. Location: Operating room. Administered medications: Etomidate. ------ --- FINDINGS LEFT VENTRICLE: The cavity size is normal. Systolic function is moderately decreased by visual assessment. RIGHT VENTRICLE: The cavity size is normal. Wall thickness is normal. Systolic function is normal. LEFT ATRIUM: The atrium is normal in size. ATRIAL SEPTUM: No evidence of patent foramen ovale or atrial septal defect. MITRAL VALVE: Normal (thickness) leaflets. Doppler: There is trivial, less than 1+ regurgitation. AORTIC VALVE: Trileaflet; mildly calcified leaflets. Doppler: There is no significant regurgitation. TRICUSPID VALVE: Normal thickness leaflets. Doppler: There is trivial, less than 1+ regurgitation. AORTA: The aorta is well visualized. There is moderate, diffuse atheromatous plaque in the distal aortic arch, extending to the distal descending aorta. Electronically signed by Mario Flores MD 11/07/2018 15:23 [place], [place] TRANSESOPHAGEAL ECHOCARDIOGRAM Intraoperative-Pre Pump Only PATIENT: Dominga Larkin STUDY DATE: 11/06/2018 : 1950 AGE: 67 HT/WT: 175.3 cm (69 92.7 kg (204 in) lb) GENDER: M BP: 105 / 60 LOCATION: [facility] PATIENT Inpatient [facility] STATUS: *ORDERING PHYSICIAN: * Jerry Mckeon *READING PHYSICIAN: * Mario Flores MD *INFORMATION OPERATOR: * Juana SZYMANSKI --------- INDICATIONS: CAD, Unspecified ([id number]). --------- CONCLUSIONS SUMMARY: 1. Pre: CABG patient as described below. all findings discussed with surgical team. --------- STUDY DATA: Operative transesophageal echocardiogram. Procedure: The procedure was performed with the patient intubated under general anesthesia on the operating table. A complete pre-operative DANIEL was performed. Image quality was goodA transesophageal probe was inserted by the anesthesiologistwithout difficulty. Complete 2D, complete spectral Doppler, and color flow Doppler images were acquired and archived for permanent storage and are available for subsequent review. Study status: Routine. Patient status: Inpatient. Location: Operating room. Administered medications: Etomidate. --------- FINDINGS LEFT VENTRICLE: The cavity size is normal. Systolic function is moderately decreased by visual assessment. RIGHT VENTRICLE: The cavity size is normal. Wall thickness is normal. Systolic function is normal. LEFT ATRIUM: The atrium is normal in size. ATRIAL SEPTUM: No evidence of patent foramen ovale or atrial septal defect. MITRAL VALVE: Normal (thickness) leaflets. Doppler: There is trivial, less than 1+ regurgitation. AORTIC VALVE: Trileaflet; mildly calcified leaflets. Doppler: There is no significant regurgitation. TRICUSPID VALVE: Normal thickness leaflets. Doppler: There is trivial, less than 1+ regurgitation. AORTA: The aorta is well visualized. There is moderate, diffuse atheromatous plaque in the distal aortic arch, extending to the distal descending aorta. Electronically signed by Mario Flores MD 11/07/2018 15:23 [place], [place] Glucose,Bedsideon 11-07-2018 Glucose [Mass/Vol] 227 mg/dL High 70-100 [facility] [employer] [facility] Comment on above: Result Comment: Test performed by glucose meter. Results may be 10%-15% lower than serum/plasma values. (CLIA ID [id number]) Performed By: #### T SGL #### [employer] [address] [place] [id number] #### LRC #### [place] [address] [place] [address] Glucose [Mass/Vol] 217 mg/dL High 70-100 [place], [place] Comment on above: Result Comment: Test performed by glucose meter. Results may be 10%-15% lower than serum/plasma values. (CLIA ID [id number]) Performed By: #### A PTT, PT, LFT3 #### [employer] [facility] [place] [address] Test performed by gl ucose meter. Results may be 10%-15% lower than serum/plasma values. (CLIA ID [id number]) Glucose [Mass/Vol] 122 mg/dL High 70-100 [facility] Comment on above: Result Comment: Test performed by glucose meter. Results may be 10%-15% lower than serum/plasma values. (CLIA ID [id number]) Performed By: #### A PTT, PT, LFT3 #### [facility] [address] [place] [address] Glucose [Mass/Vol] 108 mg/dL High 70-100 [facility] Comment on above: Result Comment: Test performed by glucose meter. Results may be 10%-15% lower than serum/plasma values. (CLIA ID [id number]) Performed By: #### A PTT, PT, LFT3 #### [facility] [address] [place] [address] Glucose [Mass/Vol] 93 mg/dL Normal 70-100 [facility] Comment on above: Result Comment: Test performed by glucose meter. Results may be 10%-15% lower than serum/plasma values. (CLIA ID [id number]) Performed By: #### A PTT, PT, LFT3 #### [employer] [facility] [address] [place] [address] Glucose [Mass/Vol] 114 mg/dL High 70-100 [facility] Comment on above: Result Comment: Test performed by glucose meter. Results may be 10%-15% lower than serum/plasma values. (CLIA ID [id number]) Performed By: #### A PTT, PT, LFT3 #### [facility] [address] [place] [address] Glucose [Mass/Vol] 119 mg/dL High 70-100 [facility] Comment on above: Result Comment: Test performed by glucose meter. Results may be 10%-15% lower than serum/plasma values. (CLIA ID [id number]) Performed By: #### A PTT, PT, LFT3 #### [facility] [address] [place] [address] Glucose [Mass/Vol] 130 mg/dL High 70-100 [facility] Comment on above: Result Comment: Test performed by glucose meter. Results may be 10%-15% lower than serum/plasma values. (CLIA ID [id number]) Performed By: #### A PTT, PT, LFT3 #### [facility] [address] [place] [address] Glucose [Mass/Vol] 122 mg/dL High 70-100 [facility] Comment on above: Result Comment: Test performed by glucose meter. Results may be 10%-15% lower than serum/plasma values. (CLIA ID [id number]) Performed By: #### A PTT, PT, LFT3 #### [facility] [employer] [facility] [address] [place] [address] Glucose [Mass/Vol] 79 mg/dL Normal 70-100 [facility] Comment on above: Result Comment: Test performed by glucose meter. Results may be 10%-15% lower than serum/plasma values. (CLIA ID [id number]) Performed By: #### A PTT, PT, LFT3 #### [facility] [employer] [facility] [address] [place] [address] Glucose [Mass/Vol] 93 mg/dL Normal 70-100 [facility] Comment on above: Result Comment: Test performed by glucose meter. Results may be 10%-15% lower than serum/plasma values. (CLIA ID [id number]) Performed By: #### A PTT, PT, LFT3 #### [facility] [employer] [facility] [address] [place] [address] Glucose [Mass/Vol] 103 mg/dL High 70-100 [facility] Comment on above: Result Comment: Test performed by glucose meter. Results may be 10%-15% lower than serum/plasma values. (CLIA ID [id number]) Performed By: #### A PTT, PT, LFT3 #### [facility] [address] [place] [address] Glucose [Mass/Vol] 77 mg/dL Normal 70-100 [facility] Comment on above: Result Comment: Test performed by glucose meter. Results may be 10%-15% lower than serum/plasma values. (CLIA ID [id number]) Performed By: #### A PTT, PT, LFT3 #### [place] [address] [address] [place], [place] Glucose [Mass/Vol] 101 mg/dL High 70-100 [facility] Comment on above: Result Comment: Test performed by glucose meter. Results may be 10%-15% lower than serum/plasma values. (CLIA ID [id number]) Performed By: #### A PTT, PT, LFT3 #### [place] [address] [address] [place], [place] Glucose [Mass/Vol] 126 mg/dL High 70-100 [facility] Comment on above: Result Comment: Test performed by glucose meter. Results may be 10%-15% lower than serum/plasma values. (CLIA ID [id number]) Performed By: #### A PTT, PT, LFT3 #### [place] [address] [address] [place], [place] Hemogramon 11-07-2018 Erythrocyte distribution width (RBC) [Ratio] 14.0 % Normal 11.5-14.5 [facility] Comment on above: Performed By: #### A PTT, PT, LFT3 #### [place] [address] [place], [place] Hematocrit (Bld) [Volume fraction] 33.5 % Low 40.0-52.0 [facility] Comment on above: Performed By: #### A PTT, PT, LFT3 #### [place] [address] [address] [place], [place] Hemoglobin (Bld) [Mass/Vol] 11.5 g/dL Low 13.0-18.0 [facility] Comment on above: Performed By: #### A PTT, PT, LFT3 #### [place] [address] [place], [place] MCH (RBC) [Entitic mass] 30.8 pg Normal 26.0-34.0 [facility] Comment on above: Performed By: #### A PTT, PT, LFT3 #### [place] [address] [place] MCHC (RBC) [Mass/Vol] 34.3 % Normal 32.0-36.0 [facility] Comment on above: Performed By: #### A PTT, PT, LFT3 #### [facility] [address] [place], [place] MCV (RBC) [Entitic vol] 89.7 fL Normal 80.0-98.0 [facility] Comment on above: Performed By: #### A PTT, PT, LFT3 #### [place] [address] [address] [place], [place] Platelet mean volume (Bld) [Entitic vol] 8.4 fL Normal 7.4-10.4 [facility] Comment on above: Performed By: #### A PTT, PT, LFT3 #### [place] [address] [address] [place], [place] Platelets (Bld) [#/Vol] 122 10*3/uL Low 140-440 [facility] Comment on above: Performed By: #### A PTT, PT, LFT3 #### [place] [address] [address] [place], [place] RBC (Bld) [#/Vol] 3.74 10*6/uL Low 4.40-5.90 [facility] Comment on above: Performed By: #### A PTT, PT, LFT3 #### [place] [address] [address] [place], [place] WBC (Bld) [#/Vol] 11.3 10*3/uL High 3.6-10.7 [facility] Comment on above: Performed By: #### A PTT, PT, LFT3 #### [place] [address] [address] [place], [place] Leukodepleted Red Cellson Leukodepleted Red Cells Leukodepleted Re d Cells: [id number] released 11/07/18 03:50 ERR Unit Blood Type: A Unit Blood Rh: POS Blood Product Code: AS1 Unit Number: [id number] Unit Status: released Barcoded Unit Number: =[id number] Barcoded Product Code: = Barcoded ABO/Rh: =%6200 Unit Expiration: Unit Volume Transfused: 0 Unit Transfusion Start Date/Time: Unit Transfusion End Date/Time: Leukodepleted Red Cells: [id number] released 11/07/18 03:50 ERR Unit Blood Type: A Unit Blood Rh: POS Blood Product Code: AS1 Unit Number: [id number] Unit Status: released Barcoded Unit Number: =[id number] Barcoded Product Code: = Barcoded ABO/Rh: =%6200 Unit Expiration: Normal [facility] Comment on above: Performed By: #### T SGL #### [address] [address] #### LRC #### [address] [address] Magnesiumon 11-07-2018 Magnesium [Mass/Vol] 2.2 mg/dL Normal 1.6-2.3 [facility] Comment on above: Performed By: #### T SGL #### [address] [address] #### LRC #### [address] [address] Magnesium [Mass/Vol] 2.2 mg/dL 1.6 - 2 .3 mg/dL [place], [place] Magnesium [Mass/Vol] 2.4 mg/dL High 1.6-2.3 [facility] Comment on above: Performed By: #### A PTT, PT, LFT3 #### [address] [address] Magnesium [Mass/Vol] 2.4 mg/dL High 1.6 - 2 .3 mg/dL [place], [place] Otheron 11-07-2018 Test Performed by [id number] [place] [address] Interpretation and review of laboratory results Abnormal [place], [place] Test Performed by [id number] [place] [address] POCT Glucoseon 11-07-2018 Glucose [Mass/Vol] 227 mg/dL High 70 - 100 mg/dL [facility] [place] Comment on above: Test performed by gl ucose meter. Results may be 10%-15% lower than serum/plasma values. (CLIA ID [id number]) Interpretation and review of laboratory results Abnormal [facility] [place] Test Performed by [facility], [address] [place] [address] [facility] [place] Interpretation and review of laboratory results Abnormal [facility] [place] Test Performed by [facility], [address] [place] [address] [facility] [place] Glucose [Mass/Vol] 122 mg/dL High 70 - 100 mg/dL [facility] [place] Comment on above: Test performed by gl ucose meter. Results may be 10%-15% lower than serum/plasma values. (CLIA ID [id number]) Interpretation and review of laboratory results Abnormal [facility] [place] Test Performed by [facility], [address] [place] [address] [facility] [place] Glucose [Mass/Vol] 108 mg/dL High 70 - 100 mg/dL [facility] [place] Comment on above: Test performed by gl ucose meter. Results may be 10%-15% lower than serum/plasma values. (CLIA ID [id number]) Interpretation and review of laboratory results Abnormal [facility] [place] Test Performed by [facility], [address] [place] [address] [facility] [place] Glucose [Mass/Vol] 93 mg/dL 70 - 100 mg/dL [facility] [place] Comment on above: Test performed by gl ucose meter. Results may be 10%-15% lower than serum/plasma values. (CLIA ID [id number]) Test Performed by [facility], [address] [place] [address] [facility] [place] Glucose [Mass/Vol] 114 mg/dL High 70 - 100 mg/dL [facility] [place] Comment on above: Test performed by gl ucose meter. Results may be 10%-15% lower than serum/plasma values. (CLIA ID [id number]) Interpretation and review of laboratory results Abnormal [facility] [place] Test Performed by [facility], [address] [place] [address] [facility] [place] Glucose [Mass/Vol] 119 mg/dL High 70 - 100 mg/dL [facility] [place] Comment on above: Test performed by gl ucose meter. Results may be 10%-15% lower than serum/plasma values. (CLIA ID [id number]) Interpretation and review of laboratory results Abnormal [facility] [place] Test Performed by [facility], [address] [place] [address] [facility] [place] Glucose [Mass/Vol] 130 mg/dL High 70 - 100 mg/dL [facility] [place] Comment on above: Test performed by gl ucose meter. Results may be 10%-15% lower than serum/plasma values. (CLIA ID [id number]) Interpretation and review of laboratory results Abnormal [facility] [place] Test Performed by [facility], [address] [place] [address] [facility] [place] Glucose [Mass/Vol] 122 mg/dL High 70 - 100 mg/dL [facility] [place] Comment on above: Test performed by gl ucose meter. Results may be 10%-15% lower than serum/plasma values. (CLIA ID [id number]) Interpretation and review of laboratory results Abnormal [facility] [place] Test Performed by [facility], [address] [place] [address] [facility] [place] Glucose [Mass/Vol] 79 mg/dL 70 - 100 mg/dL [facility] Comment on above: Test performed by gl ucose meter. Results may be 10%-15% lower than serum/plasma values. (CLIA ID [id number]) Test Performed by [facility], [address] [place] [address] [facility] [place] Glucose [Mass/Vol] 93 mg/dL 70 - 100 mg/dL [facility] [place] Comment on above: Test performed by gl ucose meter. Results may be 10%-15% lower than serum/plasma values. (CLIA ID [id number]) Test Performed by [facility], [address] [facility], [place] [address] [place] Glucose [Mass/Vol] 103 mg/dL High 70 - 100 mg/dL [place] Comment on above: Test performed by gl ucose meter. Results may be 10%-15% lower than serum/plasma values. (CLIA ID [id number]) Interpretation and review of laboratory results Abnormal [place] Test Performed by [facility], [address] [place] [address] [place] Glucose [Mass/Vol] 77 mg/dL 70 - 100 mg/dL [place] Comment on above: Test performed by gl ucose meter. Results may be 10%-15% lower than serum/plasma values. (CLIA ID [id number]) Test Performed by [facility], [facility] [address] [place] [address] [place] XR CHEST PORTABLEon 11-08-19 Patient Name: DOMINGA LARKIN ---Diagnostic Radiology--- Exam Date/Time 11/07/2018 07:01:32 EDT Exam CR Chest Portable Ordering Physician MD MIKE, JERRY Dorsey Accession Number [id number] CPT4 Codes 28191 () Reason For Exam Post op open heart,Shortness of breath. Report CHEST (Frontal View) History: Respiratory abnormality Comparison: 11/06/2018 Findings: Frontal portable chest view shows cardiomegaly with mild pulmonary congestion. There is linear small right basilar atelectasis. There has been sternotomy. [place]-Alex catheter, tracheal and enteric tubes have been removed. The tip of right IJ catheter sheath overlies the SVC. Bilateral chest tubes are noted. There is no appreciable pneumothorax, pleural effusion, or other significant interval change. Report Dictated on --- Final --- Dictated: 11/07/2018 8:58 am Dictating Physician: MD MICHAEL AHMAD Signed Date and Time: 11/07/2018 9:00 am Signed by: MD MICHAEL AHMAD Transcribed Date and Time: 11/07/2018 8:58 [place], [place] [facility], [facility] Results From [facility] - 11/07/2018 9:02 AM EDT Patient Name: DOIMNGA LARKIN ---Diagnostic Radiology--- Exam Date/Time 11/07/2018 07:01:32 EDT Exam CR Chest Portable Ordering Physician MD MIKE, JERRY Dorsey Accession Number [id number] CPT4 Codes 90346 () Reason For Exam Post op open heart,Shortness of breath. Report CHEST (Frontal View) History: Respiratory abnormality Comparison: 11/06/2018 Findings: Frontal portable chest view shows cardiomegaly with mild pulmonary congestion. There is linear small right basilar atelectasis. There has been sternotomy. [place]-Alex catheter, tracheal and enteric tubes have been removed. The tip of right IJ catheter sheath overlies the SVC. Bilateral chest tubes are noted. There is no appreciable pneumothorax, pleural effusion, or other significant interval change. Report Dictated on --- Final --- Dictated: 11/07/2018 8:58 am Dictating Physician: MD MICHAEL AHMAD Signed Date and Time: 11/07/2018 9:00 am Signed by: MD MICHAEL AHMAD Transcribed Date and Time: 11/07/2018 8:58 [place] Arterial Blood Gaseson 11-06 CO2 [Moles/Vol] 22.5 mmol/L Low 23.0-27.0 [facility] Comment on above: Performed By: #### C UA2 #### [address] [address] HCO3 (Bld) [Moles/Vol] 21.2 mmol/L Normal 21.0-25.0 [facility] Comment on above: Performed By: #### C UA2 #### [address] [address] Hemoglobin (Bld) [Mass/Vol] 11.6 g/dL Normal ScreenOnly [facility] Comment on above: Performed By: #### C UA2 #### [address], [place] Oxygen (Bld) [Partial pressure] 174.6 mm[Hg] High 80.0-100.0 [facility] Comment on above: Performed By: #### C UA2 #### [place] [address] [address] [place], [place] Oxygen saturation in Blood 98.5 % Normal 95.0-100.0 [facility] Comment on above: Performed By: #### C UA2 #### [place] [address] [address] [place], [place] pCO2 44.9 mm[Hg] Normal 35.0-45.0 [facility] Comment on above: Performed By: #### C UA2 #### [address] [place] [address] [place], [place] pH (Bld) 7.291 Low 7.350-7.450 [facility] Comment on above: Performed By: #### C UA2 #### [address] Std Base Excess -5.3 mmol/L Low -3.0-3.0 [facility] Comment on above: Performed By: #### C UA2 #### [place] [address] [place], [place] FIO2 No data Normal [facility] Comment on above: Performed By: #### C UA2 #### [place] [address] [place], [place] Basic Metabolic Panelon 10-26 Calcium [Mass/Vol] 8.8 mg/dL Normal 8.4-10.4 [facility] Comment on above: Performed By: #### A PTT, PT, LFT3 #### [address] [place] [address] [place] Glucose [Mass/Vol] 181 mg/dL High 70-100 [facility] Comment on above: Performed By: #### A PTT, PT, LFT3 #### [address] [place] [address] [place] Urea nitrogen [Mass/Vol] 28 mg/dL High 7-20 [facility] Comment on above: Performed By: #### A PTT, PT, LFT3 #### [facility] [address] [place], [place] Anion gap [Moles/Vol] 14 Normal [facility] Comment on above: Performed By: #### A PTT, PT, LFT3 #### [facility] [address] [place], [place] CO2 [Moles/Vol] 19 mmol/L Low 22-30 [facility] Comment on above: Performed By: #### A PTT, PT, LFT3 #### [place] [address] [address] [place], [place] Creatinine [Mass/Vol] 1.74 mg/dL High 0.52-1.25 [facility] Comment on above: Performed By: #### A PTT, PT, LFT3 #### [place] [address] [place], [place] GFR/1.73 sq M predicted among blacks MDRD (S/P/Bld) [Vol rate/Area] 47.8 mL/min/{1.73_m2} Normal >60 [facility] Comment on above: Performed By: #### A PTT, PT, LFT3 #### [place] [address] [place], [place] GFR/1.73 sq M predicted among non-blacks MDRD (S/P/Bld) [Vol rate/Area] 39.5 mL/min/{1.73_m2} Normal >60 [facility] Comment on above: Result Comment: Sour ce- MDRD equation with creatinine calibration to IDMS(NKDEP) eGFR not recommended for drug dose adjustment Performed By: #### A PTT, PT, LFT3 #### [place] [address] [place], [place] Potassium [Moles/Vol] 2.8 mmol/L Low 3.5-5.1 [facility] Comment on above: Performed By: #### A PTT, PT, LFT3 #### [place] [address] [place], [place] Chloride [Moles/Vol] 109 mmol/L High 98-107 [facility] Comment on above: Performed By: #### A PTT, PT, LFT3 #### [facility] [employer] [facility] [address] [place], [place] Sodium [Moles/Vol] 142 mmol/L Normal 135-145 [facility] Comment on above: Performed By: #### A PTT, PT, LFT3 #### [facility] [address] [place], [place] Anion gap [Moles/Vol] 14 mmol/L [facility], [place] Calcium [Mass/Vol] 8.8 mg/dL 8.4 - 10. 4 mg/dL [place], [place] Chloride [Moles/Vol] 109 mmol/L High 98 - 10 7 mmol/L [facility], [place] CO2 [Moles/Vol] 19 mmol/L Low 22 - 30 mmol/L [place] Creatinine [Mass/Vol] 1.74 mg/dL High 0.52 - 1.25 mg/dL [place] EGFR IF NonAfrican [place] 39.5 mL/min >60 [place] Comment on above: Source- MDRD equatio n with creatinine calibration to IDMS(NKDEP) eGFR not recommended for drug dose adjustment GFR/1.73 sq M predicted among blacks MDRD (S/P/Bld) [Vol rate/Area] 47.8 mL/min/{1.73_m2} >60 [place] Glucose [Mass/Vol] 181 mg/dL High 70 - 100 mg/dL [place] Potassium [Moles/Vol] 2.8 mmol/L Low 3.5 - 5.1 mmol/L [place] Sodium [Moles/Vol] 142 mmol/L 135 - 145 mmol/L [place] Urea nitrogen [Mass/Vol] 28 mg/dL High 7 - 20 mg/dL [place] Calcium [Mass/Vol] 9.0 mg/dL Normal 8.4-10.4 [facility] Comment on above: Performed By: #### C UA2 #### [facility] [address] [place], [place] Anion gap [Moles/Vol] 12 Normal [facility] Comment on above: Performed By: #### C UA2 #### [facility] [address] [place], [place] CO2 [Moles/Vol] 21 mmol/L Low 22-30 [facility] Comment on above: Performed By: #### C UA2 #### [facility] [address] [place], [place] Creatinine [Mass/Vol] 1.70 mg/dL High 0.52-1.25 [facility] Comment on above: Performed By: #### C UA2 #### [place] [address] [place], [place] GFR/1.73 sq M predicted among blacks MDRD (S/P/Bld) [Vol rate/Area] 49.1 mL/min/{1.73_m2} Normal >60 [facility] Comment on above: Performed By: #### C UA2 #### [place] [address] [place], [place] GFR/1.73 sq M predicted among non-blacks MDRD (S/P/Bld) [Vol rate/Area] 40.5 mL/min/{1.73_m2} Normal >60 [facility] Comment on above: Result Comment: Sour ce- MDRD equation with creatinine calibration to IDMS(NKDEP) eGFR not recommended for drug dose adjustment Performed By: #### C UA2 #### [facility] [address], [place] Glucose [Mass/Vol] 145 mg/dL High 70-100 [facility] Comment on above: Performed By: #### C UA2 #### [place] [address] [place], [place] Urea nitrogen [Mass/Vol] 32 mg/dL High 7-20 [facility] Comment on above: Performed By: #### C UA2 #### [place] [address] [place], [place] Chloride [Moles/Vol] 106 mmol/L Normal 98-107 [facility] Comment on above: Performed By: #### C UA2 #### [facility] [employer] [facility] [address], [place] Potassium [Moles/Vol] 3.6 mmol/L Normal 3.5-5.1 [facility] Comment on above: Result Comment: Slig htly hemolysed, interpret with caution. Performed By: #### C UA2 #### [facility] [address], [place] Sodium [Moles/Vol] 139 mmol/L Normal 135-145 [facility] Comment on above: Performed By: #### C UA2 #### [facility] [address], [place] Anion gap [Moles/Vol] 12 mmol/L [facility] [place] Calcium [Mass/Vol] 9.0 mg/dL 8.4 - 10. 4 mg/dL [place], [place] Chloride [Moles/Vol] 106 mmol/L 98 - 10 7 mmol/L [place] CO2 [Moles/Vol] 21 mmol/L Low 22 - 30 mmol/L [place] Creatinine [Mass/Vol] 1.7 mg/dL High 0.52 - 1.25 mg/dL [place] EGFR IF NonAfrican [place]er 40.5 mL/min >60 [place] Comment on above: Source- MDRD equatio n with creatinine calibration to IDMS(NKDEP) eGFR not recommended for drug dose adjustment GFR/1.73 sq M predicted among blacks MDRD (S/P/Bld) [Vol rate/Area] 49.1 mL/min/{1.73_m2} >60 [place] Glucose [Mass/Vol] 145 mg/dL High 70 - 100 mg/dL [place] Potassium [Moles/Vol] 3.6 mmol/L 3.5 - 5.1 mmol/L [place] Comment on above: Slightly hemolysed, interpret with caution. Sodium [Moles/Vol] 139 mmol/L 135 - 145 mmol/L [place] Urea nitrogen [Mass/Vol] 32 mg/dL High 7 - 20 mg/dL [place] Blood Gas, Arterialon 2018 Base Excess, Arterial -5.3 mmol/L Low -3 - 3 mmol/L [place] HCO3, Arterial 21.2 mmol/L 21 - 25 mmol/L [place] Hemoglobin (Bld) [Mass/Vol] 11.6 g/dL ScreenOnly [place], [place] Oxygen saturation in Blood 98.5 % 95 - 100 % [place] pCO2, Arterial 44.9 mm[Hg] 35 - 45 mm[Hg] [place] pH, Arterial 7.291 Low [place] pO2, Arterial 174.6 mm[Hg] High 80 - 100 mm[Hg] [place] Sodium [Moles/Vol] No data [place] TCO2, Arterial 22.5 mmol/L Low 23 - 27 mmol/L [place] CBCon 11-06-2018 Erythrocyte distribution width (RBC) [Ratio] 14.0 % 11.5 - 14.5 % [place] Hematocrit (Bld) [Volume fraction] 36.5 % Low 40 - 52 % [place] Hemoglobin (Bld) [Mass/Vol] 12.2 g/dL Low 13 - 18 g/dL [place] Interpretation and review of laboratory results Abnormal [place] MCH (RBC) [Entitic mass] 30.3 pg 26 - 34 pg [place] MCHC (RBC) [Mass/Vol] 33.5 % 32 - 36 % [place], [place] MCV (RBC) [Entitic vol] 90.5 fL 80 - 98 fL [place], [place] Platelet mean volume (Bld) [Entitic vol] 8.0 fL 7.4 - 10.4 fL [place] Platelets (Bld) [#/Vol] 192 10*3/uL 140 - 440 10*3/uL [place] RBC (Bld) [#/Vol] 4.04 10*6/uL Low 4.4 - 5.9 10*6/uL [place] WBC (Bld) [#/Vol] 16.8 10*3/uL High 3.6 - 10.7 10*3/uL [place] Test Performed by [address] [address] [place] Erythrocyte distribution width (RBC) [Ratio] 14.0 % 11.5 - 14.5 % [place] Hematocrit (Bld) [Volume fraction] 32.4 % Low 40 - 52 % [place] Hemoglobin (Bld) [Mass/Vol] 11.1 g/dL Low 13 - 18 g/dL [place] Interpretation and review of laboratory results Abnormal [place] MCH (RBC) [Entitic mass] 30.7 pg 26 - 34 pg [place] MCHC (RBC) [Mass/Vol] 34.1 % 32 - 36 % [place] MCV (RBC) [Entitic vol] 89.8 fL 80 - 98 fL [place] Platelet mean volume (Bld) [Entitic vol] 8.3 fL 7.4 - 10.4 fL [place] Platelets (Bld) [#/Vol] 218 10*3/uL 140 - 440 10*3/uL [place] RBC (Bld) [#/Vol] 3.61 10*6/uL Low 4.4 - 5.9 10*6/uL [place] WBC (Bld) [#/Vol] 18.6 10*3/uL High 3.6 - 10.7 10*3/uL [place] Test Performed by [facility], [address] [place] [address] [place], [place] CR Chest Portableon 11-07-19 19 CR Chest Portable Patient Name: DOMINGA LARKIN Diagnostic Radiology Exam Date/Time 11/06/2018 14:11:54 EDT Exam CR Chest Portable Ordering Physician MD MIKE, JERRY Dorsey Accession Number [id number] CPT4 Codes 51948 () Reason For Exam ETT placement Report CHEST (Frontal View) History: Postop, respiratory abnormality Comparison: 11/04/2018 Findings: Frontal portable chest view shows status post sternotomy with surgical wires. The heart is mildly enlarged. There is mild pulmonary congestion with interstitial prominence and small linear atelectasis bilaterally. Tip of tracheal tube is 3.7 cm above the jordon. Tip of Nashville-Alex catheter overlies the tip of the pulmonary trunk. Enteric tube extends below the diaphragm. There are bilateral chest tubes. There is no appreciable pneumothorax, pleural effusion, or other significant or change. Report Dictated on Final Dictated: 11/06/2018 1:45 pm Dictating Physician: MD MICHAEL AHMAD Signed Date and Time: 11/06/2018 1:46 pm Signed by: MD MICHAEL AHMAD Transcribed Date and Time: 11/06/2018 1:45 Normal [facility] Calcium, Ionizedon 9 Ionized Ca 4.90 mg/dL 4.3 - 5.2 mg/dL [place] pH (Bld) 7.29 [pH] Low [place] Calcium,Ionizedon 11-06-2018 pH, Ionized Calcium 7.29 Low 7.31-7.46 [facility] Comment on above: Performed By: #### C UA2 #### [address] [address] Ionized Ca,Measured 4.90 mg/dL Normal 4.30-5.20 [facility] Comment on above: Performed By: #### C UA2 #### [address] [address] Echo 2D/3D DANIEL w/wo Contrast on 11-06-2018 Echo 2D/3D DANIEL w/wo Contrast Patient Name: DOMINGA LARKIN Ultrasound Exam Date/Time 11/06/2018 11:45:18 EDT Exam Echo 2D/3D DANIEL w/wo Contrast Ordering Physician MD MIKE, EJRRY Dorsey Accession Number [id number] Reason For Exam cad cabg Report TRANSESOPHAGEAL ECHOCARDIOGRAM Intraoperative-Pre Pump Only PATIENT: Dominga Larkin STUDY DATE: 11/06/2018 : 1950 AGE: 67 HT/WT: 175.3 cm (69 92.7 kg (204 in) lb) GENDER: M BP: 105 / 60 LOCATION: [facility] PATIENT Inpatient [facility] STATUS: *ORDERING PHYSICIAN: * Jerry Mckeon *READING PHYSICIAN: * Mario Flores MD *INFORMATION OPERATOR: Mili Concepcion RCS ------ --- INDICATIONS: CAD, Unspecified (I2510). ------ --- CONCLUSIONS SUMMARY: 1. Pre: CABG patient as described below. all findings discussed with surgical team. ------ --- STUDY DATA: Operative transesophageal echocardiogram. Procedure: The procedure was performed with the patient intubated under general anesthesia on the operating table. A complete pre-operative DANIEL was performed. Image quality was goodA transesophageal probe was inserted by the anesthesiologistwithout difficulty. Complete 2D, complete spectral Doppler, and color flow Doppler images were acquired and archived for permanent storage and are available for subsequent review. Study status: Routine. Patient status: Inpatient. Location: Operating room. Administered medications: Etomidate. ------ --- FINDINGS LEFT VENTRICLE: The cavity size is normal. Systolic function is moderately decreased by visual assessment. RIGHT VENTRICLE: The cavity size is normal. Wall thickness is normal. Systolic function is normal. LEFT ATRIUM: The atrium is normal in size. ATRIAL SEPTUM: No evidence of patent foramen ovale or atrial septal defect. MITRAL VALVE: Normal (thickness) leaflets. Doppler: There is trivial, less than 1+ regurgitation. AORTIC VALVE: Trileaflet; mildly calcified leaflets. Doppler: There is no significant regurgitation. TRICUSPID VALVE: Normal thickness leaflets. Doppler: There is trivial, less than 1+ regurgitation. AORTA: The aorta is well visualized. There is moderate, diffuse atheromatous plaque in the distal aortic arch, extending to the distal descending aorta. Electronically signed by Mario Flores MD 11/07/2018 15:23 Final Dictated: 11/07/2018 3:23 pm Dictating Physician: MD MUNOZ ANTHONY Signed Date and Time: 11/07/2018 3:23 pm Signed by: MD MUNOZ ANTHONY Normal [facility] Glucose,Bedsideon 11-06-2018 Glucose [Mass/Vol] 138 mg/dL High 70-100 [facility] Comment on above: Result Comment: Test performed by glucose meter. Results may be 10%-15% lower than serum/plasma values. (CLIA ID [id number]) Performed By: #### A PTT, PT, LFT3 #### [facility] [employer] [facility] [address] [place] [address] Glucose [Mass/Vol] 153 mg/dL High 70-100 [facility] Comment on above: Result Comment: Test performed by glucose meter. Results may be 10%-15% lower than serum/plasma values. (CLIA ID [id number]) Performed By: #### A PTT, PT, LFT3 #### [facility] [employer] [facility] [address] [place] [address] Glucose [Mass/Vol] 178 mg/dL High 70-100 [facility] Comment on above: Result Comment: Test performed by glucose meter. Results may be 10%-15% lower than serum/plasma values. (CLIA ID [id number]) Performed By: #### A PTT, PT, LFT3 #### [facility] [employer] [facility] [address] [place] [address] Glucose [Mass/Vol] 190 mg/dL [place] [address] Comment on above: Result Comment: Test performed by glucose meter. Results may be 10%-15% lower than serum/plasma values. (CLIA ID [id number]) Performed By: #### A PTT, PT, LFT3 #### [facility] [address] [place] [address] Glucose [Mass/Vol] 187 mg/dL High [address] Comment on above: Result Comment: Test performed by glucose meter. Results may be 10%-15% lower than serum/plasma values. (CLIA ID [id number]) Performed By: #### A PTT, PT, LFT3 #### [facility] [employer] [facility] [address] [place] [address] Glucose [Mass/Vol] 175 mg/dL High [address] Comment on above: Result Comment: Test performed by glucose meter. Results may be 10%-15% lower than serum/plasma values. (CLIA ID [id number]) Performed By: #### A PTT, PT, LFT3 #### [facility] [employer] [place] [address] [place] [address] Glucose [Mass/Vol] 180 mg/dL High [address] Comment on above: Result Comment: Test performed by glucose meter. Results may be 10%-15% lower than serum/plasma values. (CLIA ID [id number]) Performed By: #### C UA2 #### [place] [address] [place] [address] Glucose [Mass/Vol] 188 mg/dL High [address] Comment on above: Result Comment: Test performed by glucose meter. Results may be 10%-15% lower than serum/plasma values. (CLIA ID [id number]) Performed By: #### B GLU #### [place] [address] [place], [place] Hemogramon 11-06-2018 Erythrocyte distribution width (RBC) [Ratio] 14.0 % Normal 11.5-14.5 [facility] Comment on above: Performed By: #### A PTT, PT, LFT3 #### [place] [address] [place], [place] Hematocrit (Bld) [Volume fraction] 36.5 % Low 40.0-52.0 [facility] Comment on above: Performed By: #### A PTT, PT, LFT3 #### [place] [address] [place], [place] Hemoglobin (Bld) [Mass/Vol] 12.2 g/dL Low 13.0-18.0 [facility] Comment on above: Performed By: #### A PTT, PT, LFT3 #### [place] [address] [place], [place] MCH (RBC) [Entitic mass] 30.3 pg Normal 26.0-34.0 [facility] Comment on above: Performed By: #### A PTT, PT, LFT3 #### [place] [address] [place], [place] MCHC (RBC) [Mass/Vol] 33.5 % Normal 32.0-36.0 [facility] Comment on above: Performed By: #### A PTT, PT, LFT3 #### [place] [address] [place], [place] MCV (RBC) [Entitic vol] 90.5 fL Normal 80.0-98.0 [facility] Comment on above: Performed By: #### A PTT, PT, LFT3 #### [place] [address] [place], [place] Platelet mean volume (Bld) [Entitic vol] 8.0 fL Normal 7.4-10.4 [facility] Comment on above: Performed By: #### A PTT, PT, LFT3 #### [place] [address] [place], [place] Platelets (Bld) [#/Vol] 192 10*3/uL Normal 140-440 [facility] Comment on above: Performed By: #### A PTT, PT, LFT3 #### [place] [address] [place], [place] RBC (Bld) [#/Vol] 4.04 10*6/uL Low 4.40-5.90 [facility] Comment on above: Performed By: #### A PTT, PT, LFT3 #### [place] [address] [place], [place] WBC (Bld) [#/Vol] 16.8 10*3/uL High 3.6-10.7 [facility] Comment on above: Performed By: #### A PTT, PT, LFT3 #### [address] Erythrocyte distribution width (RBC) [Ratio] 14.0 % Normal 11.5-14.5 [facility] Comment on above: Performed By: #### C UA2 #### [place] [address] [place], [place] Hematocrit (Bld) [Volume fraction] 32.4 % Low 40.0-52.0 [facility] Comment on above: Performed By: #### C UA2 #### [place] [address] [place], [place] Hemoglobin (Bld) [Mass/Vol] 11.1 g/dL Low 13.0-18.0 [facility] Comment on above: Performed By: #### C UA2 #### [place] [address] [place], [place] MCH (RBC) [Entitic mass] 30.7 pg Normal 26.0-34.0 [facility] Comment on above: Performed By: #### C UA2 #### [address] [place], [place] MCHC (RBC) [Mass/Vol] 34.1 % Normal 32.0-36.0 [facility] Comment on above: Performed By: #### C UA2 #### [place] [address] [place], [place] MCV (RBC) [Entitic vol] 89.8 fL Normal 80.0-98.0 [facility] Comment on above: Performed By: #### C UA2 #### [place] [address] [place], [place] Platelet mean volume (Bld) [Entitic vol] 8.3 fL Normal 7.4-10.4 [facility] Comment on above: Performed By: #### C UA2 #### [place] [address] [place], [place] Platelets (Bld) [#/Vol] 218 10*3/uL Normal 140-440 [facility] Comment on above: Performed By: #### C UA2 #### [place] [address] [place], [place] RBC (Bld) [#/Vol] 3.61 10*6/uL Low 4.40-5.90 [facility] Comment on above: Performed By: #### C UA2 #### [place] [address] [place], [place] WBC (Bld) [#/Vol] 18.6 10*3/uL High 3.6-10.7 [facility] Comment on above: Performed By: #### C UA2 #### [place] [address] [place], [place] Lipaseon 11-06-2018 Lipase [Catalytic activity/Vol] 111 U/L Normal 23-300 [facility] Comment on above: Performed By: #### C UA2 #### [place] [address] [place], [place] Lipase [Catalytic activity/Vol] 111 U/L 23 - 300 U/L [facility], [place] Magnesiumon 11-06-2018 Magnesium [Mass/Vol] 2.8 mg/dL High 1.6-2.3 [facility] Comment on above: Performed By: #### A PTT, PT, LFT3 #### [place] [address] [place], [place] Magnesium [Mass/Vol] 2.8 mg/dL High 1.6 - 2 .3 mg/dL [facility], [place] Magnesium [Mass/Vol] 3.7 mg/dL High 1.6-2.3 [facility] Comment on above: Result Comment: Mandy htly hemolysed, interpret with caution. Performed By: #### C UA2 #### [facility] [address] [place] [address] Magnesium [Mass/Vol] 3.7 mg/dL High 1.6 - 2 .3 mg/dL [facility], [place] Comment on above: Slightly hemolysed, interpret with caution. Op Noteon 11-06-2018 Op Note PATIENT: DENIS LARKIN ADMISSION DATE: 11/06/2018 SURGERY DATE: 11/06/2018 DATE OF : 1950 AGE: 67 ADMITTING PHYSICIAN: Jerry Mckeon MD ATTENDING PHYSICIAN: Jerry Mckeon MD DICTATING PHYSICIAN: Jerry Mckeon MD OPERATIVE RECORD PRIMARY CARE PHYSICIAN: Doug Love M.D. Procedures: 1. CABG X3; (1) JUÁREZ TO MID LAD, (2) AORTA TO FIRST OBTUSE MARGINAL WITH REVERSE SAPHENOUS VEIN GRAFT, (3) AORTA TO RCA PDA WITH REVERSE SAPHENOUS VEIN GRAFT. 2. LEFT LEG ENDOSCOPIC VEIN HARVEST. Preoperative Diagnosis: Coronary artery disease. Postoperative Diagnosis: Coronary artery disease with left ventricular ejection fraction 30% by transesophageal echocardiography. Anesthesia: General endotracheal. Complications: None. Indications for Procedure: The patient is a 67-year-old male referred with severe 3-vessel CAD for coronary artery bypass surgery. Description of Procedure: The patient was positioned on the operating table in supine position and general endotracheal anesthesia was induced. A right IJ Cordis [place]-Alex catheter and radial arterial line were placed by the anesthesiologist. The patient was fully prepped and draped in usual sterile fashion. The greater saphenous vein was harvested from the left leg. The vein was of excellent quality and somewhat small in diameter measuring about 4 mm. The leg incision was irrigated with antibiotic irrigation solution and closed with Vicryl in the soft tissues and Monocryl was used to close skin in a subcuticular fashion. Dermabond, Steri-Strips, dry dressing, and Luan wrap applied to the left leg. A median sternotomy was performed. The JUÁREZ was dissected as a pedicle graft from the left anterior chest wall. The patient was systemically heparinized with 3.5 mg/kg intravenous heparin. After 3 minutes elapsed since heparinization, the JUÁREZ pedicle was ligated and divided and fashioned for bypass. The pericardium was incised. Aortic and right atrial pursestrings were placed. The patient was cannulated and placed on cardiopulmonary bypass and cooled to 34 degrees Celsius. Antegrade and retrograde blood cardioplegia were delivered per protocol using a warm induction, cold maintenance, and warm reperfusion algorithm. Please refer to the perfusion record for detail. I was pleased with cardiac arrest and decompression throughout the case. A single clamp technique was used on the aorta. The aortic wall was somewhat friable, which was notable when I placed the cannula as well as perform the aortotomies for the proximal. Attention was initially directed to grafting the RCA PDA. The vessel measured about 2 mm in diameter and was free of disease in the anastomotic region. Reverse saphenous vein to RCA PDA was done with a running 7-0 Prolene and the proximal aorta with a running 6-0 Prolene. The first obtuse marginal, which had a stent in proximally was grafted beyond the stent. The vessel measured about 2 mm in diameter and had mild atherosclerosis at the site. Reverse saphenous vein to OM1 was done with running 7-0 Prolene and the proximal with running 6-0 Prolene. After each proximal, the vein graft and aorta were de-aired in the usual fashion. The patient was progressively warmed to 37.6 degrees Celsius and in the interim, the JUÁREZ was brought through a hole in the anterolateral aspect of the pericardium for direct course to the mid LAD which was grafted. The LAD was heavily atherosclerotic. I did graft an area that was mildly atherosclerotic in the midportion. The vessel measured about 2 mm in diameter. JUÁREZ to LAD was done with the running 7-0 Prolene and a tacking suture of 6-0 Prolene was used to anchor the fascial pedicle to the epicardium. The hot kettle tender cardioplegia dosage was delivered and the cross-clamp removed. The lungs were subsequently reinflated. Having re-warmed the patient fully to 37.6 degrees Celsius with the lungs inflated 7 minutes after cross-clamp removal, the patient was then weaned from cardiopulmonary bypass without incident and ultimately noted to be in normal sinus rhythm off cardiopulmonary bypass on low-dose epinephrine. Each pleural cavity was opened. A 19-American Yunior was placed in the anterior mediastinum and 24-American Blakes in each pleural cavity respectively. The temporary pacing wire was placed at base of the right ventricle and the ground wire in the upper abdominal wall. Protamine was given to reverse the systemic effects of heparin. Having successfully weaned from bypass, the patient was decannulated. After hemostasis was assured, vancomycin paste was applied to the sternal edges and the sternum was closed with stainless steel wire in an interrupted fashion. The presternal fascia was closed with a running #1 PDS. Vicryl and Monocryl were used to close soft tissues and skin respectively in layers and a Dermabond dressing applied. The patient was transferred stable, intubated, in sinus rhythm to ICU. [employer] Job ID: [id number] Jerry Mckeon MD DOD:11/06/2018 04:08 P EBENEZER/jasson DOT:11/06/2018 05:09 P Job Number: [id number] Document Number: [id number] cc: Doug Love MD [address] [place] [address] Jerry Mckeon MD [facility] [address] [place] [address] [address] [address] Normal [facility] Otheron 11-06-2018 Interpretation and review of laboratory results Abnormal [facility], [place] Test Performed by [facility], [address] [place] [address] Interpretation and review of laboratory results Abnormal [facility], [place] Test Performed by [facility], [address] [place] [id number] [place] [address] Interpretation and review of laboratory results Abnormal [facility] [place] [place] Test Performed by [facility], [address] [place] [id number] [place] [address] POCT Glucoseon 11-06-2018 Glucose [Mass/Vol] 101 mg/dL High 70 - 100 mg/dL [place] Comment on above: Test performed by gl ucose meter. Results may be 10%-15% lower than serum/plasma values. (CLIA ID [id number]) Interpretation and review of laboratory results Abnormal [facility] [place] [place] Test Performed by [facility], [address] [place] [address] [facility] [place] Glucose [Mass/Vol] 126 mg/dL High 70 - 100 mg/dL [facility] [place] Comment on above: Test performed by gl ucose meter. Results may be 10%-15% lower than serum/plasma values. (CLIA ID [id number]) Interpretation and review of laboratory results Abnormal [facility] [place] Test Performed by [facility], [address] [place] [address] [facility] [place] Glucose [Mass/Vol] 138 mg/dL High 70 - 100 mg/dL [facility] [place] Comment on above: Test performed by gl ucose meter. Results may be 10%-15% lower than serum/plasma values. (CLIA ID [id number]) Interpretation and review of laboratory results Abnormal [facility] [place] Test Performed by [facility], [address] [place] [address] [facility] [place] Glucose [Mass/Vol] 153 mg/dL High 70 - 100 mg/dL [facility] [place] Comment on above: Test performed by gl ucose meter. Results may be 10%-15% lower than serum/plasma values. (CLIA ID [id number]) Interpretation and review of laboratory results Abnormal [facility] [place] Test Performed by [facility], [address] [place] [address] [facility] [place] Glucose [Mass/Vol] 178 mg/dL High 70 - 100 mg/dL [facility] [place] Comment on above: Test performed by gl ucose meter. Results may be 10%-15% lower than serum/plasma values. (CLIA ID [id number]) Interpretation and review of laboratory results Abnormal [facility] [place] Test Performed by [facility], [address] [place] [address] [facility] [place] Glucose [Mass/Vol] 190 mg/dL High 70 - 100 mg/dL [facility] [place] Comment on above: Test performed by gl ucose meter. Results may be 10%-15% lower than serum/plasma values. (CLIA ID [id number]) Interpretation and review of laboratory results Abnormal [facility] [place] Test Performed by [employer] [facility], [address] [place] [address] [facility] [place] Glucose [Mass/Vol] 187 mg/dL High 70 - 100 mg/dL [facility] [place] Comment on above: Test performed by gl ucose meter. Results may be 10%-15% lower than serum/plasma values. (CLIA ID [id number]) Interpretation and review of laboratory results Abnormal [facility] [place] Test Performed by [facility] [employer] [facility], [address] [place] [address] [facility] [place] Glucose [Mass/Vol] 175 mg/dL High 70 - 100 mg/dL [facility] [place] Comment on above: Test performed by gl ucose meter. Results may be 10%-15% lower than serum/plasma values. (CLIA ID [id number]) Interpretation and review of laboratory results Abnormal [facility] [place] Test Performed by [employer], [address] [place] [address] [facility] [place] Glucose [Mass/Vol] 180 mg/dL High 70 - 100 mg/dL [facility] [place] Comment on above: Test performed by gl ucose meter. Results may be 10%-15% lower than serum/plasma values. (CLIA ID [id number]) Interpretation and review of laboratory results Abnormal [facility] [place] Test Performed by [employer] [facility], [address] [place] [address] [facility] [place] Glucose [Mass/Vol] 188 mg/dL High 70 - 100 mg/dL [facility] [place] Comment on above: Test performed by gl ucose meter. Results may be 10%-15% lower than serum/plasma values. (CLIA ID [id number]) Interpretation and review of laboratory results Abnormal [facility] [place] Test Performed by [employer] [facility], [address] [place] [address] [facility] [place] Phosphoruson 11-06-2018 Phosphate [Mass/Vol] 3.6 mg/dL Normal 2.5-4.5 [facility] Comment on above: Result Comment: Slig htly hemolysed, interpret with caution. Performed By: #### C UA2 #### [place] [place] [address] Phosphate [Mass/Vol] 3.6 mg/dL 2.5 - 4 .5 mg/dL [place], [place] Comment on above: Slightly hemolysed, interpret with caution. Protime AND APTTon 9 INR Coag (PPP) [Relative time] 1.1 Normal 0.9-1.1 [facility] Comment on above: Result Comment: Escobar mmended Anticoagulant Therapy: SEE BELOW ----- INR of 2.0 - 3.0 : - Prophylaxis of Venous Thrombosis (high-risk surgery) - Treatment of Venous Thrombosis - Treatment of Pulmonary Embolism (Includes tissue heart valves, Acute Myocardial Infarction to prevent systemic embolism, Valvular Heart Disease, and Atrial Fibrillation) ----- INR of 2.5 - 3.5 : - Mechanical Prosthetic Valves (high risk) - If oral anticoagulant therapy is used to prevent Myocardial Infarction Performed By: #### C UA2 #### [facility] [address] [place] [address] PT Coag (PPP) [Time] 11.8 s Normal 9.0-12.0 [facility] Comment on above: Result Comment: . Performed By: #### C UA2 #### [facility] [address] [place] [address] aPTT Coag (Bld) [Time] 21.1 s Normal 20.0-30.5 [facility] Comment on above: Result Comment: NOTE : The therapeutic time for Heparin anticoagulation, based on Xa activity inhibition, is an APTT of 46-80 seconds. Performed By: #### C UA2 #### [facility] [address] [place] [address] Protime/INR & PTTon 11-07-19 19 aPTT Coag (Bld) [Time] 21.1 s 20 - 30.5 s [place], [place] Comment on above: NOTE: The therapeuti c time for Heparin anticoagulation, based on Xa activity inhibition, is an APTT of 46-80 seconds. INR Coag (PPP) [Relative time] 1.1 {INR} [place], [place] Comment on above: Recommended Anticoag ulant Therapy: SEE BELOW ----- INR of 2.0 - 3.0 : - Prophylaxis of Venous Thrombosis (high-risk surgery) - Treatment of Venous Thrombosis - Treatment of Pulmonary Embolism (Includes tissue heart valves, Acute Myocardial Infarction to prevent systemic embolism, Valvular Heart Disease, and Atrial Fibrillation) ----- INR of 2.5 - 3.5 : - Mechanical Prosthetic Valves (high risk) - If oral anticoagulant therapy is used to prevent Myocardial Infarction PT Coag (PPP) [Time] 11.8 s 9 - 12 s [place], [place] Comment on above: . Test Performed by [id number] [place] [address] XR CHEST PORTABLEon 11-07-19 Patient Name: DOMINGA LARKIN ---Diagnostic Radiology--- Exam Date/Time 11/06/2018 14:11:54 EDT Exam CR Chest Portable Ordering Physician MD MCKEON KEVIN L. Accession Number [id number] CPT4 Codes 81563 () Reason For Exam ETT placement Report CHEST (Frontal View) History: Postop, respiratory abnormality Comparison: 11/04/2018 Findings: Frontal portable chest view shows status post sternotomy with surgical wires. The heart is mildly enlarged. There is mild pulmonary congestion with interstitial prominence and small linear atelectasis bilaterally. Tip of tracheal tube is 3.7 cm above the jordon. Tip of [place] catheter overlies the tip of the pulmonary trunk. Enteric tube extends below the diaphragm. There are bilateral chest tubes. There is no appreciable pneumothorax, pleural effusion, or other significant or change. Report Dictated on --- Final --- Dictated: 11/06/2018 1:45 pm Dictating Physician: MD MICHAEL AHMAD Signed Date and Time: 11/06/2018 1:46 pm Signed by: MD MICHAEL AHMAD Transcribed Date and Time: 11/06/2018 1:45 [place], [place] Lars, Isreala Incoming Radiology Results From [facility] - 11/06/2018 2:12 PM EDT Patient Name: DOMINGA LARKIN ---Diagnostic Radiology--- Exam Date/Time 11/06/2018 14:11:54 EDT Exam CR Chest Portable Ordering Physician MD MCKEON KEVIN L. Accession Number [id number] CPT4 Codes 44049 () Reason For Exam ETT placement Report CHEST (Frontal View) History: Postop, respiratory abnormality Comparison: 11/04/2018 Findings: Frontal portable chest view shows status post sternotomy with surgical wires. The heart is mildly enlarged. There is mild pulmonary congestion with interstitial prominence and small linear atelectasis bilaterally. Tip of tracheal tube is 3.7 cm above the jordon. Tip of [place]-Alex catheter overlies the tip of the pulmonary trunk. Enteric tube extends below the diaphragm. There are bilateral chest tubes. There is no appreciable pneumothorax, pleural effusion, or other significant or change. Report Dictated on --- Final --- Dictated: 11/06/2018 1:45 pm Dictating Physician: MD MICHAEL AHMAD Signed Date and Time: 11/06/2018 1:46 pm Signed by: MD MICHAEL AHMAD Transcribed Date and Time: 11/06/2018 1:45 [place], [place] CR Chest PA/LATon 11-05-2018 CR Chest PA/LAT Patient Name: DOMINGA LARKIN Diagnostic Radiology Exam Date/Time 11/04/2018 17:31:30 EDT Exam CR Chest PA/LAT Ordering Physician TRACIE CRUZ JAN C Accession Number [id number] CPT4 Codes 26978 () Reason For Exam Atherosclerotic heart disease of [place] coronary artery without angina pectoris Report EXAMINATION: PA and Lateral Chest. COMPARISON: 12/12/2015. REASON FOR STUDY: Atherosclerotic heart disease of [place] coronary artery. FINDINGS: The cardiac silhouette is normal in size. The aorta is atherosclerotic. The lungs are well-aerated. No abnormal pleuroparenchymal opacity is observed. Osseous structures appear intact. CONCLUSION(S): No evidence of acute cardiopulmonary disease. Report Dictated on Final Dictated: 11/05/2018 7:23 am Dictating Physician: MD WINSTON B NELSON Signed Date and Time: 11/05/2018 7:24 am Signed by: MD WINSTON B NELSON Transcribed Date and Time: 11/05/2018 7:23 Normal [facility] CULTURE STAPH AUREUSon 11-05 CULTURE STAPH AUREUS 1 Organism Staphylococcus aureus Moderate Negative for PBP2a (MSSA). Normal [facility] Comment on above: Order Comment: Speci men Source Comment:Nasal Performed By: #### C /SA #### [facility] [address], [place] APTTon 11-04-2018 aPTT Coag (Bld) [Time] 22.1 s Normal 20.0-30.5 [facility] Comment on above: Result Comment: NOTE : The therapeutic time for Heparin anticoagulation, based on Xa activity inhibition, is an APTT of 46-80 seconds. Performed By: #### A PTT, PT, LFT3 #### [address] [place], [place] aPTT Coag (Bld) [Time] 22.1 s 20 - 30.5 s [facility], [place] Comment on above: NOTE: The therapeuti c time for Heparin anticoagulation, based on Xa activity inhibition, is an APTT of 46-80 seconds. Complete Urinalysison 2018 Appearance (U) Clear Normal [facility] Comment on above: Result Comment: Refe rence Range: Clear Performed By: #### C UA2 #### [address] [place], [place] Bilirubin,Urine Negative Normal [facility] Comment on above: Result Comment: Refe rence Range: Negative Performed By: #### C UA2 #### [address] [place], [place] Color (U) Light-Yellow Normal [facility] Comment on above: Result Comment: Refe rence Range: Lt. Yellow Performed By: #### C UA2 #### [address] [place], [place] Glucose Ql (U) Normal Normal [facility] Comment on above: Result Comment: Refe rence Range: Normal (<70) Performed By: #### C UA2 #### [address] [place], [place] Ketone,Urine Negative Normal [facility] Comment on above: Result Comment: Refe rence Range: Negative Performed By: #### C UA2 #### [address] [place], [place] Leukocytes,Urine Negative Normal [facility] Comment on above: Result Comment: Refe rence Range: Negative Performed By: #### C UA2 #### [address] [place], [place] Nitrites,Urine Negative Normal [facility] Comment on above: Result Comment: Refe rence Range: Negative Performed By: #### C UA2 #### [address] [place], [place] Occult Blood,Urine Negative Normal [facility] Comment on above: Result Comment: Refe rence Range: Negative Performed By: #### C UA2 #### [address] [place], [place] pH (U) 6.5 Normal 5.0-8.0 [facility] Comment on above: Performed By: #### C UA2 #### [address] [place], [place] Protein (U) [Mass/Vol] Negative Normal [facility] Comment on above: Result Comment: Refe rence Range: Negative Performed By: #### C UA2 #### [address] [place], [place] Specific [place],Urine 1.022 Normal 1.005-1.030 [facility] Comment on above: Performed By: #### C UA2 #### [address] [place], [place] Urobilinogen,Urine 2 mg/dL Normal [facility] Comment on above: Result Comment: Refe rence Range: Normal (0-1) Performed By: #### C UA2 #### [facility] [address], [place] Hepatic Functionon 9 ALP [Catalytic activity/Vol] 85 U/L Normal 38-126 [facility] Comment on above: Result Comment: Slig htly hemolysed, interpret with caution. Performed By: #### A PTT, PT, LFT3 #### [facility] [address], [place] ALT [Catalytic activity/Vol] 16 U/L Normal 13-69 [facility] Comment on above: Result Comment: Slig htly hemolysed, interpret with caution. Performed By: #### A PTT, PT, LFT3 #### [address] [place], [place] AST [Catalytic activity/Vol] 34 U/L Normal 15-46 [facility] Comment on above: Result Comment: Slig htly hemolysed, interpret with caution. Performed By: #### A PTT, PT, LFT3 #### [address] [place], [place] Bilirubin [Mass/Vol] 0.8 mg/dL Normal 0.2-1.3 [facility] Comment on above: Performed By: #### A PTT, PT, LFT3 #### [facility] [address] [place], [place] Protein [Mass/Vol] 7.0 g/dL Normal 6.3-8.2 [facility] Comment on above: Result Comment: Slig htly hemolysed, interpret with caution. Performed By: #### A PTT, PT, LFT3 #### [facility] [address], [place] Bilirubin.direct [Mass/Vol] 0.0 mg/dL Normal 0.0-0.3 [facility] Comment on above: Performed By: #### A PTT, PT, LFT3 #### [facility] [address] [place], [place] Albumin [Mass/Vol] 4.1 g/dL Normal 3.5-5.0 [facility] Comment on above: Result Comment: Slig htly hemolysed, interpret with caution. Performed By: #### A PTT, PT, LFT3 #### [address] [address] Hepatic function panelon Albumin [Mass/Vol] 4.1 g/dL 3.5 - 5 g/dL [place], [place] Comment on above: Slightly hemolysed, interpret with caution. ALP [Catalytic activity/Vol] 85 U/L 38 - 126 U/L [place] Comment on above: Slightly hemolysed, interpret with caution. ALT [Catalytic activity/Vol] 16 U/L 13 - 69 U/L [place] Comment on above: Slightly hemolysed, interpret with caution. AST [Catalytic activity/Vol] 34 U/L 15 - 46 U/L [place] Comment on above: Slightly hemolysed, interpret with caution. Bilirubin Ql (U) 0.8 mg/dL 0.2 - 1.3 mg/dL [place] Bilirubin.direct [Mass/Vol] 0.0 mg/dL 0 - 0.3 mg/dL [place] Protein [Mass/Vol] 7.0 g/dL 6.3 - 8.2 g/dL [place] Comment on above: Slightly hemolysed, interpret with caution. Test Performed by [facility], [address] [place] [address] Otheron 11-04-2018 Test Performed by [address] Prothrombin Timeon 9 INR Coag (PPP) [Relative time] 0.9 Normal 0.9-1.1 [facility] Comment on above: Result Comment: Escobar mmended Anticoagulant Therapy: SEE BELOW ----- INR of 2.0 - 3.0 : - Prophylaxis of Venous Thrombosis (high-risk surgery) - Treatment of Venous Thrombosis - Treatment of Pulmonary Embolism (Includes tissue heart valves, Acute Myocardial Infarction to prevent systemic embolism, Valvular Heart Disease, and Atrial Fibrillation) ----- INR of 2.5 - 3.5 : - Mechanical Prosthetic Valves (high risk) - If oral anticoagulant therapy is used to prevent Myocardial Infarction Performed By: #### A PTT, PT, LFT3 #### [facility] [address] [place] [address] PT Coag (PPP) [Time] 9.8 s Normal 9.0-12.0 [facility] Comment on above: Result Comment: . Performed By: #### A PTT, PT, LFT3 #### [facility] [address] [place] [address] Protime-INRon 11-04-2018 INR Coag (PPP) [Relative time] 0.9 {INR} [place], [place] Comment on above: Recommended Anticoag ulant Therapy: SEE BELOW ----- INR of 2.0 - 3.0 : - Prophylaxis of Venous Thrombosis (high-risk surgery) - Treatment of Venous Thrombosis - Treatment of Pulmonary Embolism (Includes tissue heart valves, Acute Myocardial Infarction to prevent systemic embolism, Valvular Heart Disease, and Atrial Fibrillation) ----- INR of 2.5 - 3.5 : - Mechanical Prosthetic Valves (high risk) - If oral anticoagulant therapy is used to prevent Myocardial Infarction PT Coag (PPP) [Time] 9.8 s 9 - 12 s [place], [place] Comment on above: . TS GELon 11-04-2018 TS GEL ABO Group: A Rh, Gel: POS Antibody Screen Gel: NEG Normal [facility] Comment on above: Performed By: #### T SGL #### [address] [place] [address] #### LRC #### [place] [place] [address] TYPE AND SCREENon 11-04-2018 Sodium [Moles/Vol] A [place], [place] Sodium [Moles/Vol] Negative [place] Comment on above: Test Performed by [facility], [place] [address] Sodium [Moles/Vol] Positive [place], [place] Comment on above: Test Performed by [facility], [place] [address] Test Performed by [facility], [address] [place] [id number] [place] [address] Urinalysison 11-04-2018 Appearance (U) Clear [place], [place] Comment on above: Reference Range: [place] Bilirubin Urine Negative mg/dL [place], [place] Comment on above: Reference Range: Neg ative Color (U) Light-Yellow [place], [place] Comment on above: Reference Range: Lt. Yellow Glucose, Ur Normal mg/dL [place], [place] Comment on above: Reference Range: Nor mal (<70) Ketones Ql (U) Negative mg/dL [place], [place] Comment on above: Reference Range: Neg ative LEUKOCYTES, UA Negative Scott/uL [place] Comment on above: Reference Range: Neg ative Nitrite, Urine Negative [place], [place] Comment on above: Reference Range: Neg ative Occult Blood,Urine Negative mg/dL [place] Comment on above: Reference Range: Neg ative pH (U) 6.5 [pH] [place], [place] Protein (U) [Mass/Vol] Negative mg/dL [place] Comment on above: Reference Range: Neg ative Specific [place], Urine 1.022 M [place], [place] Urobilinogen, Urine 2 mg/dL [place] Comment on above: Reference Range: Nor mal (0-1) Test Performed by [facility], [address] [place] [id number] [place] [address] VL PRE OP VEIN MAPPINGon [facility] --------- Bilateral LE Vein Mapping For Bypass Report Patient Name: Dominga Larkin : 1950 Study Date: 11/04/2018 (67yrs) Age: 67 Account: [id number] Gender: M Loc: BP: Ordering: Seth Cruz Technologist: Ordering Physician: Seth Cruz Mail Carrier: Valeria Armendariz Ailyn, [facility] Interpreting Physician: Fabiana Pérez --------- Location: [address] --------- INDICATIONS: Preop CABG. --------- CONCLUSIONS 1. Vein mapping as below --------- IMPRESSIONS: - The right greater saphenous vein is patent with measurements listed below. - The left greater saphenous vein is patent with measurements listed below. --------- HISTORY: Risk factors: Former tobacco use. Hypertension. --------- STUDY DATA: Bilateral lower extremity vein mapping. Birthdate: Patient birthdate: 1950. Age: Patient is 67 yr old. Sex: Gender: male. Ethnicity: Ethnicity: white. Meléndez scale imaging. Patient status: Outpatient. Procedure: A vascular evaluation was performed. The images were obtained using a [employer] E9 vascular ultrasound machine. --------- Vein measurement table: + +--- ----+ +------- --------+ !Location !AP !Transverse!Comments ! + +--- ----+ +------- --------+ !Right greater saphenous (femoral !5.97 mm!6.60 mm ! ! !junction) ! ! ! ! + +--- ----+ +------- --------+ !Proximal right greater saphenous (thigh) !2.64 mm!3.70 mm ! ! + +--- ----+ +------- --------+ !Mid right greater saphenous (thigh) !2.64 mm!3.40 mm ! ! + +--- ----+ +------- --------+ !Distal right greater saphenous (thigh) !2.80 mm!3.80 mm ! ! + +--- ----+ +------- --------+ !Right greater saphenous (knee) !2.55 mm!3.20 mm ! ! + +--- ----+ +------- --------+ !Proximal right greater saphenous (calf) !2.49 mm!2.60 mm ! ! + +--- ----+ +------- --------+ !Mid right greater saphenous (calf) !1.25 mm!1.70 mm ! ! + +--- ----+ +------- --------+ !Distal right greater saphenous (calf) !0.80 mm!1.10 mm ! ! + +--- ----+ +------- --------+ !Left greater saphenous (femoral junction)!5.58 mm!5.80 mm ! ! + +--- ----+ +------- --------+ !Proximal left greater saphenous (thigh) !2.85 mm!3.00 mm ! ! + +--- ----+ +------- --------+ !Mid left greater saphenous (thigh) !1.97 mm!2.50 mm !branching seen.! + +--- ----+ +------- --------+ !Distal left greater saphenous (thigh) !2.03 mm!2.50 mm !branching seen.! + +--- ----+ +------- --------+ !Left greater saphenous (knee) !3.16 mm!3.20 mm ! ! + +--- ----+ +------- --------+ !Proximal left greater saphenous (calf) !2.18 mm!2.40 mm ! ! + +--- ----+ +------- --------+ !Mid left greater saphenous (calf) !2.85 mm!4.10 mm ! ! + +--- ----+ +------- --------+ !Distal left greater saphenous (calf) !3.01 mm!4.00 mm ! ! + +--- ----+ +------- --------+ Electronically signed by: Fabiana Pérez [id number] [facility], [place] Lars, [facility] Incoming Cardiology Results From [facility] - 11/04/2018 4:28 PM EDT [facility] ------ --- Bilateral LE Vein Mapping For Bypass Report Patient Name: Dominga Larkin : 1950 Study Date: 11/04/2018 (67yrs) Age: 67 Account: [id number] Gender: M Loc: BP: Ordering: Seth Cruz Technologist: Ordering Physician: Seth Cruz Mail Carrier: Valeria Armendariz RVT, [facility] Interpreting Physician: Fabiana Pérez ------ --- Location: [place] [address] ------ --- INDICATIONS: Preop CABG. ------ --- CONCLUSIONS 1. Vein mapping as below ------ --- IMPRESSIONS: - The right greater saphenous vein is patent with measurements listed below. - The left greater saphenous vein is patent with measurements listed below. ------ --- HISTORY: Risk factors: Former tobacco use. Hypertension. ------ --- STUDY DATA: Bilateral lower extremity vein mapping. Birthdate: Patient birthdate: 1950. Age: Patient is 67 yr old. Sex: Gender: male. Ethnicity: Ethnicity: white. Meléndez scale imaging. Patient status: Outpatient. Procedure: A vascular evaluation was performed. The images were obtained using a [employer] E9 vascular ultrasound machine. ------ --- Vein measurement table: + +--- ----+ +------- ------ --+ !Location !AP !Transverse!Comments ! + +--- ----+ +------- ------ --+ !Right greater saphenous (femoral !5.97 mm!6.60 mm ! ! !junction) ! ! ! ! + +--- ----+ +------- ------ --+ !Proximal right greater saphenous (thigh) !2.64 mm!3.70 mm ! ! + +--- ----+ +------- ------ --+ !Mid right greater saphenous (thigh) !2.64 mm!3.40 mm ! ! + +--- ----+ +------- ------ --+ !Distal right greater saphenous (thigh) !2.80 mm!3.80 mm ! ! + +--- ----+ +------- ------ --+ !Right greater saphenous (knee) !2.55 mm!3.20 mm ! ! + +--- ----+ +------- ------ --+ !Proximal right greater saphenous (calf) !2.49 mm!2.60 mm ! ! + +--- ----+ +------- ------ --+ !Mid right greater saphenous (calf) !1.25 mm!1.70 mm ! ! + +--- ----+ +------- ------ --+ !Distal right greater saphenous (calf) !0.80 mm!1.10 mm ! ! + +--- ----+ +------- ------ --+ !Left greater saphenous (femoral junction)!5.58 mm!5.80 mm ! ! + +--- ----+ +------- ------ --+ !Proximal left greater saphenous (thigh) !2.85 mm!3.00 mm ! ! + +--- ----+ +------- ------ --+ !Mid left greater saphenous (thigh) !1.97 mm!2.50 mm !branching seen.! + +--- ----+ +------- ------ --+ !Distal left greater saphenous (thigh) !2.03 mm!2.50 mm !branching seen.! + +--- ----+ +------- ------ --+ !Left greater saphenous (knee) !3.16 mm!3.20 mm ! ! + +--- ----+ +------- ------ --+ !Proximal left greater saphenous (calf) !2.18 mm!2.40 mm ! ! + +--- ----+ +------- ------ --+ !Mid left greater saphenous (calf) !2.85 mm!4.10 mm ! ! + +--- ----+ +------- ------ --+ !Distal left greater saphenous (calf) !3.01 mm!4.00 mm ! ! + +--- ----+ +------- ------ --+ Electronically signed by: Fabiana Pérez [id number] [place], [place] VL Vein Map for Preop Bypass [place] 11-04-2018 VL Vein Map for Preop Bypass [place] Patient Name: DOMINGA LARKIN Ultrasound Exam Date/Time 11/04/2018 15:11:40 EDT Exam VL Vein Map for Preop Bypass [place] Ordering Physician TRACIE CRUZ JAN C Accession Number [id number] CPT4 Codes 37614 () Reason For Exam pre op CABG surgery Report [facility] ------ --- Bilateral LE Vein Mapping For Bypass Report Patient Name: Dominga Larkin : 1950 Study Date: 11/04/2018 (67yrs) Age: 67 Account: [id number] Gender: M Loc: BP: Ordering: Seth Cruz Technologist: Ordering Physician: Seth Cruz Mail Carrier: Valeria Armendariz RVT, RDMS Interpreting Physician: Fabiana Pérez ------ --- Location: [address] ------ --- INDICATIONS: Preop CABG. ------ --- CONCLUSIONS 1. Vein mapping as below ------ --- IMPRESSIONS: - The right greater saphenous vein is patent with measurements listed below. - The left greater saphenous vein is patent with measurements listed below. ------ --- HISTORY: Risk factors: Former tobacco use. Hypertension. ------ --- STUDY DATA: Bilateral lower extremity vein mapping. Birthdate: Patient birthdate: 1950. Age: Patient is 67 yr old. Sex: Gender: male. Ethnicity: Ethnicity: white. Meléndez scale imaging. Patient status: Outpatient. Procedure: A vascular evaluation was performed. The images were obtained using a [employer] E9 vascular ultrasound machine. ------ --- Vein measurement table: + +--- ----+ +------- ------ --+ !Location !AP !Transverse!Comments ! + +--- ----+ +------- ------ --+ !Right greater saphenous (femoral !5.97 mm!6.60 mm ! --! !junction) ! ! ! ! + +--- ----+ +------- ------ --+ !Proximal right greater saphenous (thigh) !2.64 mm!3.70 mm ! --! + +--- ----+ +------- ------ --+ !Mid right greater saphenous (thigh) !2.64 mm!3.40 mm ! --! + +--- ----+ +------- ------ --+ !Distal right greater saphenous (thigh) !2.80 mm!3.80 mm ! --! + +--- ----+ +------- ------ --+ !Right greater saphenous (knee) !2.55 mm!3.20 mm ! --! + +--- ----+ +------- ------ --+ !Proximal right greater saphenous (calf) !2.49 mm!2.60 mm ! --! + +--- ----+ +------- ------ --+ !Mid right greater saphenous (calf) !1.25 mm!1.70 mm ! --! + +--- ----+ +------- ------ --+ !Distal right greater saphenous (calf) !0.80 mm!1.10 mm ! --! + +--- ----+ +------- ------ --+ !Left greater saphenous (femoral junction)!5.58 mm!5.80 mm ! --! + +--- ----+ +------- ------ --+ !Proximal left greater saphenous (thigh) !2.85 mm!3.00 mm ! --! + +--- ----+ +------- ------ --+ !Mid left greater saphenous (thigh) !1.97 mm!2.50 mm !branching seen.! + +--- ----+ +------- ------ --+ !Distal left greater saphenous (thigh) !2.03 mm!2.50 mm !branching seen.! + +--- ----+ +------- ------ --+ !Left greater saphenous (knee) !3.16 mm!3.20 mm ! --! + +--- ----+ +------- ------ --+ !Proximal left greater saphenous (calf) !2.18 mm!2.40 mm ! --! + +--- ----+ +------- ------ --+ !Mid left greater saphenous (calf) !2.85 mm!4.10 mm ! --! + +--- ----+ +------- ------ --+ !Distal left greater saphenous (calf) !3.01 mm!4.00 mm ! --! + +--- ----+ +------- ------ --+ Electronically signed by: Fabiana Pérez [id number] Final Dictated: 11/04/2018 4:28 pm Dictating Physician: FABIANA PÉREZ Signed Date and Time: 11/04/2018 4:27 pm Signed by: FABIANA PÉREZ [facility] CT HEAD WO CONTRASTon 2018 Patient Name: DOMINGA LARKIN ---CT--- Exam Date/Time 10/31/2018 13:27:[address] Head or Brain w/o Contrast Ordering Physician MD MANDY, DOUG Britton Accession Number [id number] CPT4 Codes 71366 () Reason For Exam SUBDURAL HEMATOMA Report CLINICAL INFORMATION: Headache and dizziness. Prior history of subdural hematoma. Unenhanced CT images of the head from skull base to vertex were obtained. Coronal and sagittal reconstructed CT images of the head were also obtained. Comparison was made to the study dated 05/15/2018. The previously seen right subdural hygroma and small amount of pneumocephalus have resolved. There is mild atrophy. The ventricles and sulci are otherwise within normal limits for the patient's age. There is no evidence of hemorrhage, mass or large acute infarct. There is no mass effect or significant shift of the midline structures. There are no extraaxial or posterior fossa masses or fluid collections. Atherosclerotic calcifications of the carotid and vertebral arteries are visualized. No significant abnormalities are noted in the region of the sella turcica. No significant abnormalities of the visualized portions of the paranasal sinuses or orbits are noted. The mastoid air cells are clear. Again identified is a right frontal foreign hole. IMPRESSION: 1. No definite evidence of an acute intracranial process. Resolution of the previously seen right subdural hygroma. Mild atrophy. Report Dictated on --- Final --- Dictating Physician: DO HAINES ANTHONY Signed Date and Time: 10/31/2018 2:17 pm Signed by: DO HAINES ANTHONY Transcribed Date and Time: 10/31/2018 2:19 [place], [place], [facility] Incoming Radiology Results From [facility] - 10/31/2018 2:19 PM EDT Patient Name: DOMINGA LARKIN ---CT--- Exam Date/Time 10/31/2018 13:27:[address] Head or Brain w/o Contrast Ordering Physician MD MANDY, DOUG Britton Accession Number [id number] CPT4 Codes 90536 () Reason For Exam SUBDURAL HEMATOMA Report CLINICAL INFORMATION: Headache and dizziness. Prior history of subdural hematoma. Unenhanced CT images of the head from skull base to vertex were obtained. Coronal and sagittal reconstructed CT images of the head were also obtained. Comparison was made to the study dated 05/15/2018. The previously seen right subdural hygroma and small amount of pneumocephalus have resolved. There is mild atrophy. The ventricles and sulci are otherwise within normal limits for the patient's age. There is no evidence of hemorrhage, mass or large acute infarct. There is no mass effect or significant shift of the midline structures. There are no extraaxial or posterior fossa masses or fluid collections. Atherosclerotic calcifications of the carotid and vertebral arteries are visualized. No significant abnormalities are noted in the region of the sella turcica. No significant abnormalities of the visualized portions of the paranasal sinuses or orbits are noted. The mastoid air cells are clear. Again identified is a right frontal foreign hole. IMPRESSION: 1. No definite evidence of an acute intracranial process. Resolution of the previously seen right subdural hygroma. Mild atrophy. Report Dictated on --- Final --- Dictating Physician: DO HAINES ANTHONY Signed Date and Time: 10/31/2018 2:17 pm Signed by: DO HAINES ANTHONY Transcribed Date and Time: 10/31/2018 2:19 [facility], [place] CBC Auto Differentialon 09 Basophils/100 WBC (Bld) 0.6 % 0 - 2 % [place] Basophils/100 WBC (Bld) 0.7 % 0 - 2 % [place] Eosinophils/100 WBC (Bld) 2.7 % 1 - 6 % [place] Eosinophils/100 WBC (Bld) 2.3 % 1 - 6 % [place] Erythrocyte distribution width (RBC) [Ratio] 13.9 % 11.5 - 14.5 % [place] Erythrocyte distribution width (RBC) [Ratio] 14.2 % 11.5 - 14.5 % [place] Hematocrit (Bld) [Volume fraction] 41.1 % 40 - 52 % [place] Hematocrit (Bld) [Volume fraction] 41.9 % 40 - 52 % [place] Lymphocytes/100 WBC (Bld) 23.3 % 20 - 40 % [place] Lymphocytes/100 WBC (Bld) 22.7 % 20 - 40 % [place] MCH (RBC) [Entitic mass] 30.5 pg 26 - 34 pg [place] MCH (RBC) [Entitic mass] 30.3 pg 26 - 34 pg [place] MCHC (RBC) [Mass/Vol] 34.5 % 32 - 36 % [place] MCHC (RBC) [Mass/Vol] 33.9 % 32 - 36 % [place] MCV (RBC) [Entitic vol] 88.5 fL 80 - 98 fL [place] MCV (RBC) [Entitic vol] 89.2 fL 80 - 98 fL [place] Monocytes/100 WBC (Bld) 8.5 % 2 - 10 % [place] Monocytes/100 WBC (Bld) 9.4 % 2 - 10 % [place] Platelet mean volume (Bld) [Entitic vol] 8.5 fL 7.4 - 10.4 fL [place] Platelet mean volume (Bld) [Entitic vol] 8.6 fL 7.4 - 10.4 fL [place] Platelets (Bld) [#/Vol] 150 10*3/uL 140 - 440 10*3/uL [place] Platelets (Bld) [#/Vol] 145 10*3/uL 140 - 440 10*3/uL [place] RBC (Bld) [#/Vol] 4.65 10*6/uL 4.4 - 5.9 10*6/uL [place] RBC (Bld) [#/Vol] 4.70 10*6/uL 4.4 - 5.9 10*6/uL [place] Comprehensive Metabolic Pane jim 10-29-2018 Albumin [Mass/Vol] 3.6 g/dL 3.5 - 5 g/dL [place] ALP [Catalytic activity/Vol] 97 U/L 38 - 126 U/L [place] ALT [Catalytic activity/Vol] 40 U/L 13 - 69 U/L [place] Anion gap [Moles/Vol] 9 mmol/L [place] AST [Catalytic activity/Vol] 36 U/L 15 - 46 U/L [place] Bilirubin Ql (U) 0.6 mg/dL 0.2 - 1.3 mg/dL [place] Calcium [Mass/Vol] 9.4 mg/dL 8.4 - 10. 4 mg/dL [place] Chloride [Moles/Vol] 100 mmol/L 98 - 10 7 mmol/L [place] CO2 [Moles/Vol] 28 mmol/L 22 - 30 mmol/L [place] Creatinine [Mass/Vol] 1.16 mg/dL 0.52 - 1.25 mg/dL [place] EGFR IF NonAfrican [place] >60.0 >60 mL/min [place] Comment on above: Source- MDRD equatio n with creatinine calibration to IDMS(NKDEP) eGFR not recommended for drug dose adjustment GFR/1.73 sq M predicted among blacks MDRD (S/P/Bld) [Vol rate/Area] mL/min/{1.73_m2} >60 mL/min [place] Glucose [Mass/Vol] 252 mg/dL High 70 - 100 mg/dL [place] Potassium [Moles/Vol] 4.0 mmol/L 3.5 - 5.1 mmol/L [place] Protein [Mass/Vol] 6.0 g/dL Low 6.3 - 8.2 g/dL [place] Sodium [Moles/Vol] 137 mmol/L 135 - 145 mmol/L [place] Urea nitrogen [Mass/Vol] 22 mg/dL High 7 - 20 mg/dL [place] Creatinine, Random Urineon 0 10-29-2018 Creatinine (U) [Mass/Vol] 103.7 mg/dL No Range [place] Hematologyon 10-29-2018 Eosinophils (Bld) [#/Vol] 0.1 10*3/uL 0 - 0.5 10*3/uL [place] Hemoglobin (Bld) [Mass/Vol] 14.2 g/dL 13 - 18 g/dL [place] Lymphocytes (Bld) [#/Vol] 1.1 10*3/uL 1 - 4.3 10*3/uL [place] Monocytes (Bld) [#/Vol] 0.4 10*3/uL 0 - 0.8 10*3/uL [place] WBC (Bld) [#/Vol] 4.7 10*3/uL 3.6 - 10.7 10*3/uL [place] Hemoglobin A1Con 10-29-2018 eAG 237 mg/dL [place] HbA1c (Bld) [Mass fraction] 9.9 % High 4 - 5.7 % [place] Comment on above: --HgbA1C levels may not be accurate in patients who have renal disease, received recent blood transfusions, are anemic, or who have dyshemoglobinemia. Interpretation and review of laboratory results Abnormal [place] Test Performed by [facility], [address] , [place], [place] [address] [place] Lipid Panelon 10-29-2018 Cholesterol [Mass/Vol] 154 mg/dL <200 [place] Cholesterol in HDL [Mass/Vol] 40 mg/dL 40 - 60 mg/dL [place] Cholesterol in LDL [Mass/Vol] 77 mg/dL <100 [place] Cholesterol.total/Deepti sterol in HDL [Mass ratio] 4 {ratio} [place] Comment on above: Ref Range: < 3 Low Risk for CHD 3-6 Mod Risk for CHD > 6 High Risk for CHD Triglyceride [Mass/Vol] 184 mg/dL Abnormal <150 [place] Otheron 10-29-2018 Interpretation and review of laboratory results Abnormal [place] Test Performed by [facility], [address] , [address] Test Performed by [facility], [address] , [address] Absolute Baso # 0.0 10*3/uL 0 - 0.2 10*3/uL [place] Absolute Neut # 3.0 10*3/uL 1.8 - 7 10*3/uL [place] Granulocytes/100 WBC (Bld) 64.9 % 40 - 80 % [place] Test Performed by [facility], [address] , [address] PTH, [place] 10-29-2018 Pth Intact 26.5 pg/mL 15 - 63 pg/mL [place] Test Performed by [facility], [address] [place], [place], [place] [id number] [place] [address] Protein, urine, randomon Protein (U) [Mass/Vol] 8 mg/dL No Range [place], [place] Renal Function Panelon 10-29 Albumin [Mass/Vol] 3.7 g/dL 3.5 - 5 g/dL [place] Anion gap [Moles/Vol] 11 mmol/L [place] Calcium [Mass/Vol] 9.5 mg/dL 8.4 - 10. 4 mg/dL [place] Chloride [Moles/Vol] 100 mmol/L 98 - 10 7 mmol/L [place] CO2 [Moles/Vol] 26 mmol/L 22 - 30 mmol/L [place] Creatinine [Mass/Vol] 1.17 mg/dL 0.52 - 1.25 mg/dL [place] EGFR IF NonAfrican [place] >60.0 >60 mL/min [place] Comment on above: Source- MDRD equatio n with creatinine calibration to IDMS(NKDEP) eGFR not recommended for drug dose adjustment GFR/1.73 sq M predicted among blacks MDRD (S/P/Bld) [Vol rate/Area] mL/min/{1.73_m2} >60 mL/min [place] Glucose [Mass/Vol] 254 mg/dL High 70 - 100 mg/dL [place] Interpretation and review of laboratory results Abnormal [place] Phosphate [Mass/Vol] 4.0 mg/dL 2.5 - 4 .5 mg/dL [place] Potassium [Moles/Vol] 4.4 mmol/L 3.5 - 5.1 mmol/L [place] Sodium [Moles/Vol] 138 mmol/L 135 - 145 mmol/L [place] Urea nitrogen [Mass/Vol] 22 mg/dL High 7 - 20 mg/dL [place] Test Performed by [facility], [facility] [address] TSH without Reflexon 019 TSH Qn 2.157 u[IU]/mL 0.465 - 4.68 u[IU]/mL [place] Test Performed by [facility], [facility] Kenneth Lorenzo. [address] Vitamin D 25 Hydroxyon 10-29 Vit D, 25-Hydroxy 43 ng/mL 30 - 100 ng/mL [place] Comment on above: Therapy is based on measurement of Total 25-OHD with the following classification levels: Less than 20 ng/mL: Indicative of Vit D deficiency 20-30 ng/mL: Suggests Vit D insufficiency Optimal: Greater than or equal to 30 ng/mL Test performed by [employer] Immunoassay, measuring Total Vitamin D, not individual fractions. Test Performed by [facility], [address] [place], [place] [id number] [place] [address], [place] Vital Signs Date Time Vital Sign Value Performing Clinician Facility 12-18-2024 14:41-0400 Body height 172.[address] Shan Nazario MD Work Phone: [facility] 12-18-2024 14:41-0400 Body mass index (BMI) [Ratio] 36.2 kg/m2 Dr. Shan Nazario MD Work Phone: [facility] 12-18-2024 14:41-0400 Body temperature 97.8 [degF] Dr. Shan Nazario MD Work Phone: [facility] 12-18-2024 14:41-0400 Body weight 108.[address] Shan Nazario MD Work Phone: [facility] 12-18-2024 14:41-0400 Diastolic blood pressure 78 mm[Hg] Dr. Shan Nazario MD Work Phone: [facility] 12-18-2024 14:41-0400 Heart rate 56 /min Dr. Shan Nazario MD Work Phone: [facility] 12-18-2024 14:41-0400 Respiratory rate 18 /min Dr. Shan Nazario MD Work Phone: [facility] 12-18-2024 14:41-0400 SaO2% (BldA) [Mass fraction] 96 % Dr. Shan Nazario MD Work Phone: [facility] 12-18-2024 14:41-0400 Systolic blood pressure 130 mm[Hg] Dr. Shan Nazario MD Work Phone: [facility] 12-03-2024 13:58-0400 Body mass index (BMI) [Ratio] 35.7 kg/m2 Dr. Shan Nazario MD Work Phone: [facility] 12-03-2024 13:58-0400 Body temperature 98 [degF] Dr. Shan Nazario MD Work Phone: [facility] 12-03-2024 13:58-0400 Body weight 106.[address] Shan Nazario MD Work Phone: [facility] 12-03-2024 13:58-0400 Diastolic blood pressure 78 mm[Hg] Dr. Shan Nazario MD Work Phone: [facility] 12-03-2024 13:58-0400 Heart rate 52 /min Dr. Shan Nazario MD Work Phone: [facility] 12-03-2024 13:58-0400 Respiratory rate 18 /min Dr. Shan Nazario MD Work Phone: [facility] 12-03-2024 13:58-0400 SaO2% (BldA) [Mass fraction] 98 % Dr. Shan Nazario MD Work Phone: [facility] 12-03-2024 13:58-0400 Systolic blood pressure 125 mm[Hg] Dr. Shan Nazario MD Work Phone: [facility] 10-28-2024 14:09-0400 Body height 172.[address] Shan Nazario MD Work Phone: [facility] 10-28-2024 14:09-0400 Body mass index (BMI) [Ratio] 35.9 kg/m2 Dr. Shan Nazario MD Work Phone: [facility] 10-28-2024 14:09-0400 Body weight 107.[address] Shan Nazario MD Work Phone: [facility] 10-28-2024 14:09-0400 Diastolic blood pressure 83 mm[Hg] Dr. Shan Nazario MD Work Phone: [facility] 10-28-2024 14:09-0400 Heart rate 57 /min Dr. Shan Nazario MD Work Phone: [facility] 10-28-2024 14:09-0400 Respiratory rate 20 /min Dr. Shan Nazario MD Work Phone: [facility] 10-28-2024 14:09-0400 Systolic blood pressure 141 mm[Hg] Dr. Shan Nazario MD Work Phone: [facility] 09-09-2024 14:52-0400 Body height 172.[address] Shan Nazario MD Work Phone: [facility] 09-09-2024 14:52-0400 Body mass index (BMI) [Ratio] 35.1 kg/m2 Dr. Shan Nazario MD Work Phone: [facility] 09-09-2024 14:52-0400 Body temperature 96.7 [degF] Dr. Shan Nazario MD Work Phone: [facility] 09-09-2024 14:52-0400 Body weight 104.[address] Shan Nazario MD Work Phone: [facility] 09-09-2024 14:52-0400 Diastolic blood pressure 78 mm[Hg] Dr. Shan Nazario MD Work Phone: [facility] 09-09-2024 14:52-0400 Heart rate 66 /min Dr. Shan Nazario MD Work Phone: [facility] 09-09-2024 14:52-0400 Respiratory rate 16 /min Dr. Shan Nazario MD Work Phone: [facility] 09-09-2024 14:52-0400 SaO2% (BldA) [Mass fraction] 94 % Dr. Shan Nazario MD Work Phone: [facility] 09-09-2024 14:52-0400 Systolic blood pressure 124 mm[Hg] Dr. Shan Nazario MD Work Phone: [facility] 06-03-2024 13:02-0400 Body mass index (BMI) [Ratio] 34.7 kg/m2 Dr. Shan Nazario MD Work Phone: [facility] 06-03-2024 13:02-0400 Body temperature 96.2 [degF] Dr. Shan Nazario MD Work Phone: [facility] 06-03-2024 13:02-0400 Body weight 103.[address] Shan Nazario MD Work Phone: [facility] 06-03-2024 13:02-0400 Diastolic blood pressure 68 mm[Hg] Dr. Shan Nazario MD Work Phone: [facility] 06-03-2024 13:02-0400 Heart rate 74 /min Dr. Shan Nazario MD Work Phone: [facility] 06-03-2024 13:02-0400 Respiratory rate 16 /min Dr. Shan Nazario MD Work Phone: [facility] 06-03-2024 13:02-0400 SaO2% (BldA) [Mass fraction] 94 % Dr. Shan Nazario MD Work Phone: [facility] 06-03-2024 13:02-0400 Systolic blood pressure 108 mm[Hg] Dr. Shan Nazario MD Work Phone: [facility] 05-13-2024 08:25-0400 Body mass index (BMI) [Ratio] 34.2 kg/m2 Dr. Shan Nazario MD Work Phone: [facility] 05-13-2024 08:25-0400 Body weight 102.[address] Shan Nazario MD Work Phone: [facility] 05-13-2024 08:25-0400 Diastolic blood pressure 80 mm[Hg] Dr. Shan Nazario MD Work Phone: [facility] 05-13-2024 08:25-0400 Heart rate 60 /min Dr. Shan Nazario MD Work Phone: [facility] 05-13-2024 08:25-0400 Respiratory rate 18 /min Dr. Shan Nazario MD Work Phone: [facility] 05-13-2024 08:25-0400 Systolic blood pressure 134 mm[Hg] Dr. Shan Nazario MD Work Phone: [facility] 05-29-2023 14:08-0400 Body height 172.[address] Shan Nazario Work Phone: [facility] 05-29-2023 14:08-0400 Body mass index (BMI) [Ratio] 36 kg/m2 Dr. Shan Nazario Work Phone: [facility] 05-29-2023 14:08-0400 Body temperature 98.3 [degF] Dr. Shan Nazario Work Phone: [facility] 05-29-2023 14:08-0400 Body weight 107.[address] Shan Nazario Work Phone: [facility] 05-29-2023 14:08-0400 Diastolic blood pressure 74 mm[Hg] Dr. Shan Nazario Work Phone: [facility] 05-29-2023 14:08-0400 Heart rate 60 /min Dr. Shan Nazario Work Phone: [facility] 05-29-2023 14:08-0400 Respiratory rate 14 /min Dr. Shan Nazario Work Phone: [facility] 05-29-2023 14:08-0400 SaO2% (BldA) [Mass fraction] 98 % Dr. Shan Nazario Work Phone: [facility] 05-29-2023 14:08-0400 Systolic blood pressure 112 mm[Hg] Dr. Shan Nazario Work Phone: [facility] 03-11-2023 14:19-0500 Body height 172.[address] Shan Nazario Work Phone: [facility] 03-11-2023 14:19-0500 Body mass index (BMI) [Ratio] 36.3 kg/m2 Dr. Shan Nazario Work Phone: [facility] 03-11-2023 14:19-0500 Body temperature 98 [degF] Dr. Shan Nazario Work Phone: [facility] 03-11-2023 14:19-0500 Body weight 108.[address] Shan Nazario Work Phone: [facility] 03-11-2023 14:19-0500 Diastolic blood pressure 78 mm[Hg] Dr. Shan Nazario Work Phone: [facility] 03-11-2023 14:19-0500 Heart rate 58 /min Dr. Shan Nazario Work Phone: [facility] 03-11-2023 14:19-0500 Respiratory rate 17 /min Dr. Shan Nazario Work Phone: [facility] 03-11-2023 14:19-0500 SaO2% (BldA) [Mass fraction] 96 % Dr. Shan Nazario Work Phone: [facility] 03-11-2023 14:19-0500 Systolic blood pressure 130 mm[Hg] Dr. Shan Nazario Work Phone: [facility] 03-09-2023 22:52-0500 Diastolic blood pressure 88 mm[Hg] Dr. Shan Nazario Work Phone: [facility] 03-09-2023 22:52-0500 Heart rate 77 /min Dr. Shan Nazario Work Phone: [facility] 03-09-2023 22:52-0500 SaO2% (BldA) [Mass fraction] 96 % Dr. Shan Nazario Work Phone: [facility] 03-09-2023 22:52-0500 Systolic blood pressure 144 mm[Hg] Dr. Shan Nazario Work Phone: [facility] 03-09-2023 22:51-0500 Respiratory rate 18 /min Dr. Shan Nazario Work Phone: [facility] 03-09-2023 20:45-0500 Body height 172.[address] Shan Nazario Work Phone: [facility] 03-09-2023 20:45-0500 Body mass index (BMI) [Ratio] 37.4 kg/m2 Dr. Shan Nazario Work Phone: [facility] 03-09-2023 20:45-0500 Body temperature 97 [degF] Dr. Shan Nazario Work Phone: [facility] 03-09-2023 20:45-0500 Body weight 111.[address] Shan Nazario Work Phone: [facility] 02-27-2023 14:23-0500 Body height 172.[address] Shan Nazario Work Phone: [facility] 02-27-2023 14:23-0500 Body mass index (BMI) [Ratio] 36.9 kg/m2 Dr. Shan Nazario Work Phone: [facility] 02-27-2023 14:23-0500 Body temperature 97.9 [degF] Dr. Shan Nazario Work Phone: [facility] 02-27-2023 14:23-0500 Body weight 110.[address] Shan Nazario Work Phone: [facility] 02-27-2023 14:23-0500 Diastolic blood pressure 84 mm[Hg] Dr. Shan Nazario Work Phone: [facility] 02-27-2023 14:23-0500 Heart rate 66 /min Dr. Shan Nazario Work Phone: [facility] 02-27-2023 14:23-0500 Respiratory rate 16 /min Dr. Shan Nazario Work Phone: [facility] 02-27-2023 14:23-0500 SaO2% (BldA) [Mass fraction] 93 % Dr. Shan Nazario Work Phone: [facility] 02-27-2023 14:23-0500 Systolic blood pressure 118 mm[Hg] Dr. Shan Nazario Work Phone: [facility] 11-14-2022 13:52-0400 Body height 172.[address] Shan Nazario Work Phone: [facility] 11-14-2022 13:52-0400 Body mass index (BMI) [Ratio] 36.3 kg/m2 Dr. Shan Nazario Work Phone: [facility] 11-14-2022 13:52-0400 Body temperature 97.7 [degF] Dr. Shan Nazario Work Phone: [facility] 11-14-2022 13:52-0400 Body weight 108.[address] Shan Nazario Work Phone: [facility] 11-14-2022 13:52-0400 Diastolic blood pressure 88 mm[Hg] Dr. Shan Nazario Work Phone: [facility] 11-14-2022 13:52-0400 Heart rate 64 /min Dr. Shan Nazario Work Phone: [facility] 11-14-2022 13:52-0400 Respiratory rate 18 /min Dr. Shan Nazario Work Phone: [facility] 11-14-2022 13:52-0400 SaO2% (BldA) [Mass fraction] 97 % Dr. Shan Nazario Work Phone: [facility] 11-14-2022 13:52-0400 Systolic blood pressure 126 mm[Hg] Dr. Shan Nazario Work Phone: [facility] 11-14-2022 11:38-0400 Body temperature 98.4 [degF] Dr. Shan Nazario Work Phone: [facility] 11-14-2022 11:38-0400 Diastolic blood pressure 65 mm[Hg] Dr. Shan Nazario Work Phone: [facility] 11-14-2022 11:38-0400 Heart rate 56 /min Dr. Shan Nazario Work Phone: [facility] 11-14-2022 11:38-0400 Respiratory rate 18 /min Dr. Shan Nazario Work Phone: [facility] 11-14-2022 11:38-0400 SaO2% (BldA) [Mass fraction] 97 % Dr. Shan Nazario Work Phone: [facility] 11-14-2022 11:38-0400 Systolic blood pressure 120 mm[Hg] Dr. Shan Nazario Work Phone: [facility] 11-06-2022 13:27-0400 Body mass index (BMI) [Ratio] 36.3 kg/m2 Dr. Shan Nazario Work Phone: [facility] 11-06-2022 13:27-0400 Body temperature 98.2 [degF] Dr. Shan Nazario Work Phone: [facility] 11-06-2022 13:27-0400 Body weight 108.[address] Shan Nazario Work Phone: [facility] 11-06-2022 13:27-0400 Diastolic blood pressure 60 mm[Hg] Dr. Shan Nazario Work Phone: [facility] 11-06-2022 13:27-0400 Heart rate 71 /min Dr. Shan Nazario Work Phone: [facility] 11-06-2022 13:27-0400 Respiratory rate 17 /min Dr. Shan Nazario Work Phone: [facility] 11-06-2022 13:27-0400 SaO2% (BldA) [Mass fraction] 96 % Dr. Shan Nazario Work Phone: [facility] 11-06-2022 13:27-0400 Systolic blood pressure 110 mm[Hg] Dr. Shan Nazario Work Phone: [facility] 10-03-2022 09:10-0400 Body temperature 98.2 [degF] Dr. Shan Nazario Work Phone: [facility] 10-03-2022 09:10-0400 Body weight 107.[address] Shan Nazario Work Phone: [facility] 10-03-2022 09:10-0400 Diastolic blood pressure 66 mm[Hg] Dr. Shan Nazario Work Phone: [facility] 10-03-2022 09:10-0400 Heart rate 65 /min Dr. Shan Nazario Work Phone: [facility] 10-03-2022 09:10-0400 Respiratory rate 18 /min Dr. Shan Nazario Work Phone: [facility] 10-03-2022 09:10-0400 SaO2% (BldA) [Mass fraction] 95 % Dr. Shan Nazario Work Phone: [facility] 10-03-2022 09:10-0400 Systolic blood pressure 99 mm[Hg] Dr. Shan Nazario Work Phone: [facility] 09-13-2022 13:22-0400 Body mass index (BMI) [Ratio] 35.9 kg/m2 Dr. Shan Nazario Work Phone: [facility] 09-13-2022 13:22-0400 Diastolic blood pressure 75 mm[Hg] Dr. Shan Nazario Work Phone: [facility] 09-13-2022 13:22-0400 Systolic blood pressure 125 mm[Hg] Dr. Shan Nazario Work Phone: [facility] 09-13-2022 13:18-0400 Body weight 107.[address] Shan Nazario Work Phone: [facility] 09-13-2022 13:18-0400 Heart rate 54 /min Dr. Shan Nazario Work Phone: [facility] 09-13-2022 13:18-0400 Respiratory rate 18 /min Dr. Shan Nazario Work Phone: [facility] 09-13-2022 13:18-0400 SaO2% (BldA) [Mass fraction] 95 % Dr. Shan Nazario Work Phone: [facility] 07-26-2022 14:36-0400 Body height 172.[address] Shan Nazario Work Phone: [facility] 07-26-2022 14:36-0400 Body mass index (BMI) [Ratio] 35.6 kg/m2 Dr. Shan Nazario Work Phone: [facility] 07-26-2022 14:36-0400 Body temperature 96.6 [degF] Dr. Shan Nazario Work Phone: [facility] 07-26-2022 14:36-0400 Body weight 106.[address] Shan Nazario Work Phone: [facility] 07-26-2022 14:36-0400 Diastolic blood pressure 68 mm[Hg] Dr. Shan Nazario Work Phone: [facility] 07-26-2022 14:36-0400 Heart rate 55 /min Dr. Shan Nazario Work Phone: [facility] 07-26-2022 14:36-0400 Respiratory rate 18 /min Dr. Shan Nazario Work Phone: [facility] 07-26-2022 14:36-0400 SaO2% (BldA) [Mass fraction] 96 % Dr. Shan Nazario Work Phone: [facility] 07-26-2022 14:36-0400 Systolic blood pressure 118 mm[Hg] Dr. Shan Nazario Work Phone: [facility] 07-10-2022 11:00-0400 Body mass index (BMI) [Ratio] 35.6 kg/m2 Dr. Shan Nazario Work Phone: [facility] 07-10-2022 11:00-0400 Body temperature 98.6 [degF] Dr. Shan Nazario Work Phone: [facility] 07-10-2022 11:00-0400 Body weight 106.[address] Shan Nazario Work Phone: [facility] 07-10-2022 11:00-0400 Diastolic blood pressure 68 mm[Hg] Dr. Shan Nazario Work Phone: [facility] 07-10-2022 11:00-0400 Heart rate 76 /min Dr. Shan Nazario Work Phone: [facility] 07-10-2022 11:00-0400 Respiratory rate 17 /min Dr. Shan Nazario Work Phone: [facility] 07-10-2022 11:00-0400 SaO2% (BldA) [Mass fraction] 95 % Dr. Shan Nazario Work Phone: [facility] 07-10-2022 11:00-0400 Systolic blood pressure 124 mm[Hg] Dr. Shan Nazario Work Phone: [facility] 04-20-2022 14:48-0500 Body height 172.[address] Doug Love Work Phone: [facility] 04-20-2022 14:48-0500 Body mass index (BMI) [Ratio] 36.1 kg/m2 Dr. Doug Love Work Phone: [facility] 04-20-2022 14:48-0500 Body temperature 96.8 [degF] Dr. Doug Love Work Phone: [facility] 04-20-2022 14:48-0500 Body weight 107.[address] Doug Love Work Phone: [facility] 04-20-2022 14:48-0500 Diastolic blood pressure 74 mm[Hg] Dr. Doug Love Work Phone: [facility] 04-20-2022 14:48-0500 Heart rate 68 /min Dr. Doug Love Work Phone: [facility] 04-20-2022 14:48-0500 Respiratory rate 18 /min Dr. Doug Love Work Phone: [facility] 04-20-2022 14:48-0500 SaO2% (BldA) [Mass fraction] 98 % Dr. Doug Love Work Phone: [facility] 04-20-2022 14:48-0500 Systolic blood pressure 134 mm[Hg] Dr. Doug Love Work Phone: [facility] 03-12-2022 10:36-0500 Diastolic blood pressure 60 mm[Hg] Dr. Doug Love Work Phone: [facility] 03-12-2022 10:36-0500 Systolic blood pressure 110 mm[Hg] Dr. Doug Love Work Phone: [facility] 03-12-2022 08:11-0500 Body mass index (BMI) [Ratio] 35.7 kg/m2 Dr. Doug Love Work Phone: [facility] 03-12-2022 08:11-0500 Body weight 106.[address] Doug Love Work Phone: [facility] 03-12-2022 08:11-0500 Heart rate 54 /min Dr. Doug Love Work Phone: [facility] 03-12-2022 08:11-0500 Respiratory rate 18 /min Dr. Doug Love Work Phone: [facility] 03-12-2022 08:11-0500 SaO2% (BldA) [Mass fraction] 95 % Dr. Doug Love Work Phone: [facility] 11-16-2021 16:07-0400 Body mass index (BMI) [Ratio] 31.9 kg/m2 Dr. Doug Love Work Phone: [facility] Work Phone: 11-16-2021 16:07-0400 Diastolic blood pressure 58 mm[Hg] Dr. Doug Love Work Phone: [facility] Work Phone: 11-16-2021 16:07-0400 Systolic blood pressure 107 mm[Hg] Dr. Doug Love Work Phone: [facility] Work Phone: 11-16-2021 13:00-0400 Body height 172.[address] Doug Love Work Phone: [facility] Work Phone: 11-16-2021 13:00-0400 Body temperature 98 [degF] Dr. Doug Love Work Phone: [facility] Work Phone: 11-16-2021 13:00-0400 Body weight 95.[address] Doug Love Work Phone: [facility] Work Phone: 11-16-2021 13:00-0400 Heart rate 54 /min Dr. Doug Love Work Phone: [facility] Work Phone: 11-16-2021 13:00-0400 Respiratory rate 20 /min Dr. Doug Love Work Phone: [facility] Work Phone: 11-16-2021 13:00-0400 SaO2% (BldA) [Mass fraction] 96 % Dr. Doug Love Work Phone: [facility] Work Phone: 10-20-2021 14:36-0400 Body height 175.[address] Doug Love Work Phone: [facility] Work Phone: 10-20-2021 14:36-0400 Body mass index (BMI) [Ratio] 31.3 kg/m2 Dr. Doug Love Work Phone: [facility] Work Phone: 10-20-2021 14:36-0400 Body temperature 97.4 [degF] Dr. Doug Love Work Phone: [facility] Work Phone: 10-20-2021 14:36-0400 Body weight 96.[address] Doug Love Work Phone: [facility] Work Phone: 10-20-2021 14:36-0400 Diastolic blood pressure 64 mm[Hg] Dr. Doug Love Work Phone: [facility] Work Phone: 10-20-2021 14:36-0400 Heart rate 69 /min Dr. Doug Love Work Phone: [facility] Work Phone: 10-20-2021 14:36-0400 Respiratory rate 16 /min Dr. Doug Love Work Phone: [facility] Work Phone: 10-20-2021 14:36-0400 SaO2% (BldA) [Mass fraction] 95 % Dr. Doug Love Work Phone: [facility] Work Phone: 10-20-2021 14:36-0400 Systolic blood pressure 98 mm[Hg] Dr. Doug Love Work Phone: [facility] Work Phone: 09-06-2021 10:28-0400 Body height 175.[address] Doug Love Work Phone: [facility] Work Phone: 09-06-2021 10:28-0400 Body mass index (BMI) [Ratio] 33 kg/m2 Dr. Doug Love Work Phone: [facility] Work Phone: 09-06-2021 10:28-0400 Body weight 101.[address] Doug Love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 Jerry Mckeon Work Phone: Start: 11-11-2018 Blood count complete automated Jerry Mckeon Work Phone: Start: 11-10-2018 Gluc bld gluc mntr d ev cleared fda spec home use Jerry Mckeon Work Phone: Start: 11-10-2018 Gluc bld gluc mntr d ev cleared fda spec home use Jerry Mckeon Work Phone: Start: 11-10-2018 Gluc bld gluc mntr d ev cleared fda spec home use Jerry Mckeon Work Phone: Start: 11-10-2018 Ecg routine ecg w/le ast 12 lds w/i&r Seth Cruz Work Phone: Start: 11-10-2018 Radiologic exam ches t single view Jerry Mckeon Work Phone: Start: 11-10-2018 Basic metabolic pane l calcium total Jerry Mckeon Work Phone: Start: 11-10-2018 Blood count complete automated Jerry Mckeon Work Phone: Start: 11-09-2018 Gluc bld gluc mntr d ev cleared fda spec home use Jerry Mckeon Work Phone: Start: 11-09-2018 Gluc bld gluc mntr d ev cleared fda spec home use Jerry Mckeon Work Phone: Start: 11-09-2018 Gluc bld gluc mntr d ev cleared fda spec home use Jerry Mckeon Work Phone: Start: 11-09-2018 Gluc bld gluc mntr d ev cleared fda spec home use Jerry Mckeon Work Phone: Start: 11-09-2018 Radiologic exam ches t single view Jerry Mckeon Work Phone: Start: 11-09-2018 Assay of magnesium Joeli n Work Phone: Start: 11-09-2018 Basic metabolic pane l calcium total Jerry Mckeon Work Phone: Start: 11-09-2018 Blood count complete automated Jerry Mckeon Work Phone: Start: 11-08-2018 Gluc bld gluc mntr d ev cleared fda spec home use Jerry Mckeon Work Phone: Start: 11-08-2018 Gluc bld gluc mntr d ev cleared fda spec home use Jerry Mckeon Work Phone: Start: 11-08-2018 Gluc bld gluc mntr d ev cleared fda spec home use Jerry Mckeon Work Phone: Start: 11-08-2018 Gluc bld gluc mntr d ev cleared fda spec home use Jerry Mckeon Work Phone: Start: 11-08-2018 Ecg routine ecg w/le ast 12 lds w/i&r Dominga Le Work Phone: Start: 11-08-2018 Radiologic exam ches t single view Jerry Mckeon Work Phone: Start: 11-08-2018 Ecg routine ecg w/le ast 12 lds w/i&r Jerry Mckeon Work Phone: Start: 11-08-2018 Assay of magnesium Joeli n Work Phone: Start: 11-08-2018 Basic metabolic pane l calcium total Jerry Mckeon Work Phone: Start: 11-08-2018 Blood count complete automated Jerry Mckeon Work Phone: Start: 11-07-2018 Gluc bld gluc mntr d ev cleared fda spec home use Jerry Mckeon Work Phone: Start: 11-07-2018 Assay of magnesium Densi Le Work Phone: Start: 11-07-2018 Basic metabolic pane l calcium total Dominga Le Work Phone: Start: 11-07-2018 Calcium ionized Dominga Le Work Phone: Start: 11-07-2018 Gluc bld gluc mntr d ev cleared fda spec home use Jerry Mckeon Work Phone: Start: 11-07-2018 History of coronary artery bypass grafting S/P CABG x 3 Pillo Ortiz MD Work Phone: Start: 11-07-2018 Gluc bld gluc mntr d ev cleared fda spec home use Jerry Mckeon Work Phone: Start: 11-07-2018 OPERATIVE REPORT 3m Sca nning Start: 11-07-2018 End: 11-07-2018 Gluc bld gluc mntr dev cleared fda spec home use Jerry Mckeon Work Phone: Start: 11-07-2018 Gluc bld gluc mntr d ev cleared fda spec home use Jerry Mckeon Work Phone: Start: 11-07-2018 Ecg routine ecg w/le ast 12 lds w/i&r Jerry Mckeon Work Phone: Start: 11-07-2018 Radiologic exam ches t single view Jerry Mckeon Work Phone: Start: 11-07-2018 End: 11-07-2018 Gluc bld gluc mntr dev cleared fda spec home use Jerry Mckeon Work Phone: Start: 11-07-2018 End: 11-07-2018 Gluc bld gluc mntr dev cleared fda spec home use Jerry Mckeon Work Phone: Start: 11-07-2018 Assay of magnesium Christy Mckeon Work Phone: Start: 11-07-2018 Basic metabolic pane l calcium total Jerry Mckeon Work Phone: Start: 11-07-2018 Blood count complete automated Jerry Mckeon Work Phone: Start: 11-07-2018 End: 11-07-2018 Gluc bld gluc mntr dev cleared fda spec home use Jerry Mckeon Work Phone: Start: 11-06-2018 End: 11-06-2018 Gluc bld gluc mntr dev cleared fda spec home use Jerry Mckeon Work Phone: Start: 11-06-2018 End: 11-06-2018 Gluc bld gluc mntr dev cleared fda spec home use Jerry Mckeon Work Phone: Start: 11-06-2018 Gluc bld gluc mntr d ev cleared fda spec home use Jerry Mckeon Work Phone: Start: 11-06-2018 Assay of magnesium Joeli n Work Phone: Start: 11-06-2018 Basic metabolic pane l calcium total Jerry Mckeon Work Phone: Start: 11-06-2018 Blood count complete automated Jerry Mckeon Work Phone: Start: 11-06-2018 End: 11-06-2018 Gluc bld gluc mntr dev cleared fda spec home use Jerry Mckeon Work Phone: Start: 11-06-2018 End: 11-06-2018 Gluc bld gluc mntr dev cleared fda spec home use Jerry Mckeon Work Phone: Start: 11-06-2018 Radiologic exam ches t single view Jerry Mckeon Work Phone: Start: 11-06-2018 Assay of lipase Jerry M oxana Work Phone: Start: 11-06-2018 Assay of magnesium Joeli n Work Phone: Start: 11-06-2018 Assay of phosphorus inorganic Jerry Mckeon Work Phone: Start: 11-06-2018 Basic metabolic pane l calcium total Jerry Mckeon Work Phone: Start: 11-06-2018 Blood count complete automated Jerry Mckeon Work Phone: Start: 11-06-2018 BLOOD GAS, ARTERIAL Joel in Work Phone: Start: 11-06-2018 Calcium ionized Jerry daigle Work Phone: Start: 11-06-2018 PROTIME/INR & PTT Jerry Mckeon Work Phone: Start: 11-06-2018 ECHOCARDIOGRAM TRANSESOPHAGEAL Jerry Mckeon Work Phone: Start: 11-06-2018 Blood typing serolog ic abo Unknown Provider Result Start: 11-06-2018 Gluc bld gluc mntr d ev cleared fda spec home use Jerry Mckeon Work Phone: Start: 11-04-2018 Blood typing serolog ic abo Seth Cruz Work Phone: Start: 11-04-2018 Hepatic function panel Seth Cruz Work Phone: Start: 11-04-2018 Prothrombin time Alicja Hanson Work Phone: Start: 11-04-2018 Thromboplastin time partial plasma/whole blood Alicja Hanson Work Phone: Start: 11-04-2018 Urnls dip stick/tabl et rgnt auto w/o microscopy Seth Cruz Work Phone: Start: 11-04-2018 Ecg routine ecg w/le ast 12 lds w/i&r Seth Cruz Work Phone: Start: 11-04-2018 Dup-scan xtr veins unilateral/limited study Seth Cruz Work Phone: Start: 10-31-2018 Ct head/brain w/o contrast material Doug Love Work Phone: Start: 10-29-2018 25 hydroxy includes fractions if performed [employer] Phone: Start: 10-29-2018 Assay of parathormone D [employer] Work Phone: Start: 10-29-2018 End: 10-29-2018 Blood count complete auto&auto difrntl wbc [employer] Work Phone: Start: 10-29-2018 Creatinine other source [employer] Work Phone: Start: 10-29-2018 Protein total xcpt refractometry urine Pillo Ortiz Work Phone: Start: 10-29-2018 Renal function panel Da rosa Ortiz Work Phone: Start: 10-29-2018 Assay of thyroid stimulating hormone tsh Doug Love Work Phone: Start: 10-29-2018 Comprehensive metabo lic panel Doug Love Work Phone: Start: 10-29-2018 Hemoglobin glycosyla corine a1c Doug Love Work Phone: Start: 10-29-2018 Lipid panel Doug green Work Phone: Start: 10-26-2018 History of coronary artery bypass grafting History of coronary artery bypass graft Dr. Doug Love Work Phone: Comment on above: CABG X [address] [facility] [address] Mckeon JUÁREZ to mid LAD, SVG to OM1, SVG to right PDA Start: 02-16-2014 Colonoscopy Doug green MD Work Phone: History of tonsillectomy Hx of tonsillect tian Dr. Doug Love Work Phone: Plan of Treatment Date Care Activity Detail Author Start: 08-17-2025 Thyroid stimulating hormone measurement TSH Level [facility] [employer] Start: 12-18-2024 End: 12-18-2024 Patient encounter procedure CAD (coronary artery disease) -[facility] Work Phone: Start: 10-26-2024 COVID-19 Vaccine ( season) COVID-19 Vaccine ( season) [facility] Start: 10-26-2024 Influenza vaccination Influenza Vacc ine (#1) [facility] Start: 07-23-2024 Thyroid Cancer Ultrasound Thyroid Ca ncer Ultrasound [facility] Start: 07-08-2024 Thyroid stimulating hormone measurement [facility] [facility] Start: 04-03-2024 Thyroid stimulating hormone measurement TSH Level [facility] Start: 02-17-2024 Colon cancer screen colonoscopy Colon cancer screen colonoscopy [facility], [place] Start: 02-17-2024 Screening for malign ant neoplasm of colon [facility] Start: 10-27-2023 COVID-19 Vaccine ( season) COVID-19 Vaccine ( season) [facility] Start: 10-27-2023 Influenza vaccination [facility] Start: 06-13-2023 Thyroid stimulating hormone measurement TSH Level [facility] Start: 04-03-2023 Patient referral [facility] Work Phone: Start: 03-09-2023 [facility] Start: 12-26-2022 Pneumococcal Vaccine : 50+ Years (3 of 3 - PCV20 or PCV21) Pneumococcal Vaccine: 50+ Years (3 of 3 - PCV20 or PCV21) [facility] Start: 12-14-2022 Pneumococcal 65+ yea rs Vaccine (2 of 2 - PPSV23) Pneumococcal 65+ years Vaccine (2 of 2 - PPSV23) [facility] Start: 12-14-2022 Pneumococcal 65+ yea rs Vaccine (3 - PPSV23 or PCV20) Pneumococcal 65+ years Vaccine (3 - PPSV23 or PCV20) [facility] Start: 12-14-2022 Pneumococcal Vaccine : 65+ Years (3 - PPSV23 if available, else PCV20) Pneumococcal Vaccine: 65+ Years (3 - PPSV23 if available, else PCV20) [facility] Start: 12-14-2022 Pneumococcal Vaccine : 65+ Years (3 of 3 - PPSV23 or PCV20) Pneumococcal Vaccine: 65+ Years (3 of 3 - PPSV23 or PCV20) [facility] Start: 11-14-2022 Patient referral [facility] Work Phone: Start: 10-26-2022 COVID-19 Vaccine ( season) COVID-19 Vaccine ( season) [facility] Start: 10-26-2022 Influenza vaccination [facility] Start: 09-13-2022 Patient referral [facility] Work Phone: Start: 05-23-2022 Creatinine measurement [facility] Start: 05-23-2022 Diabetes: Estimated Glomerular Filtration Rate for [facility] Diabetes: Estimated Glomerular Filtration Rate for [facility] Health [facility] Start: 05-23-2022 Hemoglobin A1c measurement [facility] Start: 05-23-2022 Lipid panel [facility] Start: 05-23-2022 Potassium measurement Potassium Leve l [facility] Start: 05-23-2022 Potassium monitoring Potassium monit oring [facility] Start: 05-23-2022 Prostate specific an tigen measurement Prostate Specific Antigen (PSA) Screening [facility] Start: 05-23-2022 Thyroid stimulating hormone measurement TSH testing [facility] Start: 08-23-2021 Hemoglobin A1c measurement Diabetes: Hemoglobin A1C [facility] Start: 06-16-2021 Subsequent hospital visit by physician 06/16/2021 Hospital Encounter General Surgery Jt, Calli Espinosa, DO [address] [place] [address] B General Surgery Start: 12-17-2020 Creatinine measurement Creatinine mo nitoring [facility] Start: 12-17-2020 Potassium monitoring Potassium monit oring [facility] Start: 10-26-2020 Influenza vaccination [facility] Start: 08-14-2020 Thyroid stimulating hormone measurement TSH [facility] Start: 08-14-2020 TSH Qn TSH testing [place] Start: 08-13-2020 [place] Start: 08-13-2020 Potassium monitoring Pot[place] monit [place], [place] Start: 10-30-2019 Creatinine monitoring Creatinine mon [place] Start: 10-30-2019 HbA1c (Bld) [Mass fraction] A1C test (Diabetic or Prediabetic) [place], [place] Start: 10-30-2019 Hemoglobin A1c measurement A1C test (Diabetic or Prediabetic) [facility] Start: 10-30-2019 Lipid panel Lipid screen [facility] Start: 10-30-2019 Lipid screen Lipid screen [place] Start: 10-30-2019 Potassium monitoring Pot[place] monit [place] Start: 10-30-2019 TSH testing TSH testing [place] Start: 10-30-2019 Urine screening for protein Diabetic microalbuminuria test [facility] Start: 10-27-2019 Influenza vaccination M [place], [place] Start: 05-16-2019 Creatinine monitoring Creatinine mon [place] Start: 05-16-2019 Potassium monitoring Pot[place] monit [place] Start: 04-03-2019 Lipid screen Lipid screen [place] Start: 01-28-2019 A1C test (Diabetic o r Prediabetic) A1C test (Diabetic or Prediabetic) [place] Start: 12-26-2018 Pneumococcal 65+ yea rs Vaccine (2 of 2 - PPSV23) Pneumococcal 65+ years Vaccine (2 of 2 - PPSV23) [place] Start: 11-20-2018 End: 11-20-2018 Office Visit 11/20/2018 Office Visit Cardiothoracic Surgery Seth Cruz, LALY - INFRASTRUCTURE CONSULTANT [address] [place] [address] [phone] [facility] Start: 11-06-2018 End: 11-06-2018 Hospital Encounter [facility] Start: 11-04-2018 End: 11-04-2018 Appointment [facility] [address] [facility] Start: 10-30-2018 End: 10-30-2018 Office Visit 10/30/2018 Office Visit Cardiothoracic Surgery Jerry Mckeon MD [address] [place] [address] [phone] [facility] Start: 10-26-2018 Influenza vaccination Flu vaccine (# 1) [place] Start: 08-17-2018 Annual Wellness Visi t (AWV) Annual Wellness Visit (AWV) [facility] Start: 08-06-2018 A1C test (Diabetic o r Prediabetic) A1C test (Diabetic or Prediabetic) [place] Start: 2017 ADVANCE DIRECTIVE DISCUSSION ADVANCE DIRECTIVE DISCUSSION [facility] Start: 2017 PNEUMOVAX AGE 65 AND OVER WITH 5YR LOOKBACK (#1) PNEUMOVAX AGE 65 AND OVER WITH 5YR LOOKBACK (#1) [facility] Start: 12-21-2015 Annual Wellness Visi t (AWV) Annual Wellness Visit (AWV) [place] Start: 2012 RSV Immunization age d 60 or older (1 - 1-dose 60+ series) RSV Immunization aged 60 or older (1 - 1-dose 60+ series) [facility] Start: 2012 RSV Immunization for Adults (1 - Risk 60-74 years 1-dose series) RSV Immunization for Adults (1 - Risk 60-74 years 1-dose series) [facility] Start: 12-21-2007 PROSTATE CANCER SCRE ENING DISCUSSION PROSTATE CANCER SCREENING DISCUSSION [facility] Start: 2002 Screening for malign ant neoplasm of colon [facility] Start: 2002 Shingles Vaccine (1 of 2) Shingles V accine (1 of 2) [facility] Start: 2002 SHINGRIX VACCINE (1 of 2) SHINGRIX V ACCINE (1 of 2) [facility] Start: 2002 Zoster Vaccines (1 of 2) Zoster Vacc rima (1 of 2) [facility] Start: 1997 DIABETES SCREEN DIABETES SCREEN [facility] Start: 1997 Screening for malign ant neoplasm of colon [facility] Start: 12-21-1987 LIPID SCREEN LIPID SCREEN [facility] Start: 12-21-1971 DTaP/Tdap/Td vaccine (1 - Tdap) DTaP/Tdap/Td vaccine (1 - Tdap) [facility] Start: 12-21-1971 DTaP/Tdap/Td Vaccine s (1 - Tdap) DTaP/Tdap/Td Vaccines (1 - Tdap) [facility] Start: 12-21-1971 Urine microalbumin profile DTAP,TDAP,TD (1 - Tdap) [facility] Start: 12-21-1971 Urine screening for protein Diabetes: Urine Protein Screening [facility] Start: 1970 Diabetes: Urine Albumin-Creatinine Ratio for Kidney Health Diabetes: Urine Albumin-Creatinine Ratio for Kidney Health [facility] Start: 1970 Diabetic microalbumi tricia test Diabetic microalbuminuria test [place] Start: 1970 Diabetic retinal exam Diabetic retin al exam [facility] Start: 1970 HEPATITIS C SCREENING HEPATITIS C SC REENING [facility] Start: 1970 Hepatitis C screening [facility] Start: 1970 Urine screening for protein Diabetic microalbuminuria test [facility] Start: 12-21-1967 HIV screen HIV screen [place] Start: 1964 Adult depression screening assessment DEPRESSION SCREENING [facility] Start: 1964 COVID-19 VACCINE (1) COVID-19 VACCIN E (1) [facility] Start: 1964 Depression Screen Depression Screen [facility] Start: 1962 [object Object] Diabetic foot exam [place] Start: 1962 Diabetic foot examination [facility] Start: 1962 Diabetic retinal exam Diabetic retin al exam [place] Start: 1962 Glaucoma screening Diabetes: R etinopathy Screening [facility] Start: 1962 Preventive dental service Diabetes: Dental Exam [facility] Start: 1957 COVID-19 Vaccine (1) COVID-19 Vaccin e (1) [facility] Start: 06-20-1953 COVID-19 Vaccine (#1) COVID-19 Vacci ne (#1) [facility] Start: 1952 AAA screen AAA screen [place], [place] Start: 1952 Annual Wellness Visi t (AWV) Annual Wellness Visit (AWV) [facility] Start: 1952 Echocardiography Echocardiogram [facility] Start: 1952 Hepatitis B Vaccines (1 of 3 - 3-dose series) Hepatitis B Vaccines (1 of 3 - 3-dose series) [facility] Start: 1952 Hepatitis C screen Hepatitis C scree [place] Start: 1952 Hepatitis C screening Hepatitis C sc reen [facility] Start: 1952 Screening for malign ant neoplasm of colon [facility] Start: 1952 Thyroglobulin Test Thyroglobulin Carmen t [facility] Start: 1952 Thyroid Cancer Ultrasound Thyroid Ca ncer Ultrasound [facility] Acapella Acapella Respira tory Care Routine Every 2hr while awake until discontinued starting 11/06/2018 [place] Comment on above: Every 2hr while awak e until discontinued starting 11/06/2018 Ankle brachial press ure index [facility] Basic metabolic 2000 panel Basic Metabolic Panel Lab Routine Daily until discontinued starting 11/06/2018, 8 completed [place] Comment on above: Daily until disconti nued starting 11/06/2018, 8 completed Basic metabolic 2007 panel with ionized calcium - Serum or Plasma [facility] Basic metabolic 2008 panel with ionized calcium - Serum or Plasma [facility] CBC CBC Lab Routine Daily until discontinued starting 11/06/2018, 8 [facility] Comment on above: Daily until disconti nued starting 11/06/2018, 8 completed CBC W Auto Different ial panel - Blood [facility] CBC W Auto Different ial panel - Blood [facility] Comprehensive metabo lic 2000 panel - Serum or Plasma [facility] End: 11-04-2018 Culture, Staph Aureus Culture, Staph Aureus Microbiology Routine One Time for 1 Occurrences starting 11/04/2018 until 11/04/2018 [facility] Comment on above: One Time for 1 Occur rences starting 11/04/2018 until 11/04/2018 Culture, Staph Aureus Culture, S taph Aureus Microbiology Routine 11/04/2018 4:59 PM EDT [facility] E[facility] 12 lead EKG 12 lead ECG Routine CAD, multiple vessel Pre-op testing 11/04/2018 4:46 PM EDT [facility] EKG 12 Lead EKG 12 Lead ECG Routine 06/09/2021 1:[address] [facility] Work Phone: Glucose [Mass/volume ] in Serum or Plasma [facility] Work Phone: Comment on above: 4X Daily (AC & HS) u ntil discontinued starting 06/16/2021 As Needed until disc ontinued starting 06/16/2021 Hemoglobin A1c/Hemoglobin.total in Blood [facility] HHN Treatment HHN Treatment Re spiratory Care Routine 0800, 1200, 1600, 2000 (respiratory use only) until discontinued starting 11/06/2018 [facility] Comment on above: 0800, 1200, 1600, 20 00 (respiratory use only) until discontinued starting 11/06/2018 End: 11-04-2018 Incentive spirometry Incentive spirometry Respiratory Care Routine CAD, multiple vessel Pre-op testing 1 Occurrences starting 11/04/2018 until 11/04/2018 [facility] Comment on above: 1 Occurrences starti ng 11/04/2018 until 11/04/2018 Incentive spirometry [facility] Comment on above: Daily until disconti nued starting 08/13/2019 Every 1hr while awak e until discontinued starting 11/06/2018 Initiate Oxygen Ther apy Protocol [facility] Comment on above: Daily until disconti nued starting 08/13/2019 Daily until disconti nued starting 11/06/2018 Lipid 1996 panel - S nino or Plasma [facility] Lipid 1996 panel - S nino or Plasma [facility] MR Lumbar spine [facility] End: 11-04-2018 MRSA culture MRSA culture Microbiology Routine CAD, multiple vessel Pre-op testing 1 Occurrences starting 11/04/2018 until 11/04/2018 [facility] Comment on above: 1 Occurrences starti ng 11/04/2018 until 11/04/2018 OUTSIDE PROCEDURE SCAN OUTSIDE P ROCEDURE SCAN Procedures Ordered: 06/12/2022 [facility] Comment on above: Ordered: 06/12/2022 OUTSIDE PROCEDURE SCAN OUTSIDE P ROCEDURE SCAN Procedures Ordered: 04/03/2023 [facility] Comment on above: Ordered: 04/03/2023 OUTSIDE PROCEDURE SCAN OUTSIDE P ROCEDURE SCAN Procedures Ordered: 07/23/2023 [facility] Comment on above: Ordered: 07/23/2023 OUTSIDE PROCEDURE SCAN OUTSIDE P ROCEDURE SCAN Procedures Ordered: 07/09/2023 [facility] Comment on above: Ordered: 07/09/2023 OUTSIDE PROCEDURE SCAN OUTSIDE P ROCEDURE SCAN Procedures Ordered: 08/17/2024 [facility] Comment on above: Ordered: 08/17/2024 Oxygen therapy [[facility] Data Set] Initiate Oxygen Therapy Protocol Respiratory Care Routine As Needed until discontinued starting 06/16/2021 [facility] Work Phone: Comment on above: As Needed until disc ontinued starting 06/16/2021 Patient Education ED Chest Pain, Uncertain Cause [facility] Work Phone: Patient referral [facility] Work Phone: End: 08-14-2019 POCT Glucose POCT Glucose Point of Care Testing Timed Every 2 Hours (Lab) for 24 Hours starting 08/13/2019 until 08/14/2019 [facility] Comment on above: Every 2 Hours (Lab) for 24 Hours starting 08/13/2019 until 08/14/2019 POCT Glucose [facility] AYDEN Britton Comment on above: 4X Daily until disco ntinued starting 08/14/2019 As Needed until disc ontinued starting 08/13/2019 As Needed until disc ontinued starting 11/06/2018 End: 11-13-2018 POCT glucose POCT glucose Point of Care Testing Routine 4X Daily (AC & HS) for 25 Occurrences starting 11/07/2018 until 11/13/2018 [place] Comment on above: 4X Daily (AC & HS) f or 25 Occurrences starting 11/07/2018 until 11/13/2018 PREPARE RBC (CROSSMA [facility]CH), 2 Units PREPARE RBC (CROSSMATCH), 2 Units Blood Bank Routine CAD, multiple vessel Pre-op testing 11/04/2018 4:59 PM EDT [place] Prostate specific an tigen measurement [facility] End: 06-16-2021 [facility] Work Phone: Comment on above: Once for 1 Occurrenc es starting 06/16/2021 until 06/16/2021 Thyroid stimulating hormone measurement [facility] Thyroid stimulating hormone measurement [facility] End: 08-14-2019 Troponin I.cardiac [Mass/Vol] Troponin Lab Timed Tomorrow AM for 1 Occurrences starting 08/14/2019 until 08/14/2019 [place] Comment on above: Tomorrow AM for 1 Oc currences starting 08/14/2019 until 08/14/2019 Troponin I.cardiac [Mass/Vol] Troponin Lab Timed 08/14/2019 3:38 AM EDT [place] End: 08-13-2019 Urinalysis Urinalysis Lab STAT Once for 1 Occurrences starting 08/13/2019 until 08/13/2019 [place] Comment on above: Once for 1 Occurrenc es starting 08/13/2019 until 08/13/2019 End: 08-13-2019 Urine Drug Screen Urine Drug Screen Lab STAT Once for 1 Occurrences starting 08/13/2019 until 08/13/2019 [place] Comment on above: Once for 1 Occurrenc es starting 08/13/2019 until 08/13/2019 Urine microalbumin/creatinine ratio measurement [facility] Urine microalbumin/creatinine ratio measurement [facility] End: 08-05-2024 US Thyroid gland [facility] [employer] Work Phone: Comment on above: Once for 1 Occurrenc es starting 08/05/2024 until 08/05/2024 End: 11-04-2018 X-ray chest PA and lateral X-ray chest PA and lateral Imaging Routine CAD, multiple vessel Pre-op testing 1 Occurrences starting 11/04/2018 until 11/04/2018 [place] Comment on above: 1 Occurrences starti ng 11/04/2018 until 11/04/2018 XR CHEST PORTABLE XR CHEST EVAN BLE Imaging Routine Daily until discontinued starting 11/07/2018, 7 completed [place] Comment on above: Daily until disconti nued starting 11/07/2018, 7 completed XR CHEST STANDARD (2 VW) XR CHES T STANDARD (2 VW) Imaging Routine CAD, multiple vessel Pre-op testing 11/04/2018 5:25 PM EDT [facility] Immunizations Immunization Date Immunization Notes Care Provider Fa [facility] 11-11-2023 Pneumococcal Vaccine PCV20 (Prevnar 20) Dr. Shan Nazario MD Work Phone: [facility] 11-03-2023 influenza, high dose seasonal, preservative-free Dr. Shan Nazario MD Work Phone: [facility] 11-03-2023 influenza virus vaccine, unspecified formulation [facility] Work Phone: [facility] 11-23-2022 Influenza High-Dose Quadrivalent Dr. Shan Nazario MD Work Phone: [facility] 11-08-2020 Influenza High-Dose Quadrivalent Dr. Shan Nazario MD Work Phone: [facility] 11-08-2020 influenza virus vaccine, unspecified formulation [facility] Drawstation [facility] 12-26-2017 influenza, high dose seasonal, preservative-free [facility] 12-26-2017 pneumococcal conjuga te vaccine, 13 valent [place] 12-14-2017 influenza, injectabl e, quadrivalent, preservative free Dr. Shan Nazario Work Phone: [facility] 12-14-2017 influenza, seasonal, injectable Dr. Doug Love Work Phone: [facility] 12-14-2017 pneumococcal polysaccharide vaccine, [address] Doug Love Work Phone: [facility] Payers Date Payer Category Payer Self-pay [id number] 2020 Medicare supplementa l policy (as second payer) MMO MEDICARE SUPPLEMENT Member Subscriber Plan / Payer (Effective 2020-Present) Name: Dominga Larkin Joshua Relation to Subscriber: Self Name: Dominga Larkin Payer ID: Not on file Type: Supplement Address: [address] [place] [id number] 2020 Unknown [employer] M MO MEDICARE SUPPLEMENT [id number] 2020-Present [address] [place] [address] Supplement [id number] 2018 Medicare MEDICARE MEDICAR E PART A AND B xxxxxxxxxxx 2018-Present [phone] [address] [address] [place] [address] xxxxxxxxxxx [id number] 2018 Unknown [employer]ICAL M[employer] M [employer]ICAL M[employer]UAL [address] xxxxxxxxxxxx 2018-Present [phone] [address] [place] [address]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 artery bypass graft (~11/23/18) History of left heart catheterization (09/13/20) History of eye surgery History of appendectomy History of foreign hole surgery (05/05/18) Stented coronary artery (01/22/18) Family History Father Negative for ASCVD Mother Negative for ASCVD Social History household members: spouse housing: house current occupational status: retired sexually active: No Smoking Status: Former smoker Tobacco: How many years used: 20 how long ago did patient quit smokin years ago alcohol intake: never substance use type: does not use caffeine: Yes Type: coffee Number of servings: 3 what type of physical activity do you participate in: none pita/shinto: Rastafarian seatbelt use: sometimes do you feel safe at home: Yes Clinical Quality Measures Falls Risk Screening/Assistive Devices Have you fallen in the past year?: No Coding Level of Care Code Off vis,est,level 3 Diagnoses Muscle cramps R25.2 History of subdural hematoma Z86.79 Chronic low back pain, unspecified back pain laterality, unspecified whether sciatica present M54.50; G89.29 Back pain laterality: unspecified Chronicity: chronic Sciatica presence: unspecified whether sciatica present 12/03/24 1811 <Electronically signed by Lg scott MD> Date _ Lg Langford MD [facility] Signature: Date (if applicable) CC: ~ [place] [employer] Work Phone: [phone] 128-601209-03-2025 [facility] [address] [place] [address]. [address] [place], [place] [address] OFFICE VISIT Date of Service: 10/28/24 MR#: [id number] Acct: [id number] Name: DOMINGA LARKIN Rep #: [id number] : 1950 Provider: Dr. Gerber Yeboah MD Age/Sex: 73/M Location[place] [facility] Status: Signed HPI HPI History of Present Illness Details: This gentleman with history of coronary artery disease status post CABG, ischemic cardiomyopathy, hypertension, dyslipidemia and diabetes mellitus is here for follow-up visit. Denies any complaints today. No chest pains. No shortness of breath. No orthopnea or PND. Occasional ankle edema. Intake Vital Signs 09/09/24 14:52 10/28/24 14:09 Height 5 ft 8 in 5 ft 8 in Weight: 231 lb 236 lb BMI 35.1 35.9 BP 124/78 H 141/83 H Blood Pressure Location Lt brachial Lt brachial Position Sitting Sitting Respiration 16 20 H Pulse 66 57 L Pulse Source Monitor Monitor Temp 96.7 F L Pulse Oximetry (%) 94 Oxygen Delivery Method room air Intake Visit Reasons: 6 M FU Steam Cleaner Required: No Is patient in pain?: No Allergies lisinopril Adverse Reaction (Intermediate, Verified 10/28/24 14:09) COUGH Medications ?Medication ?Instructions ?Recorded ?Confirmed ?Type lansoprazole 15 mg delayed 15 mg PO DAILY reflux 12/2310/07/24 History release,disintegrating tablet cholecalciferol (vitamin D3) 50 2,000 unit PO DAILY vi tamin 12/11/18 10/07/24 History mcg (2,000 unit) capsule (Vitamin D3) Lactobacillus acidophilus 100 mg PO DAILY 10/20/21 History (Acidophilus capsule) psyllium husk 0.4 gram capsule 0.4 g PO DAILY 10/20/21 10/07/24 History (Daily Fiber) Handicap Placard #1 ea 09/05/22 10/07/24 Rx levothyroxine 100 mcg tablet 100 mcg PO DAILY #90 tabs 04/02/23 10/07/24 Rx blood-glucose meter #1 ea 04/03/23 10/07/24 Rx lancets 30 gauge (Unilet Lancets) #100 ea 05/29/23 Rx blood sugar diagnostic (True #100 ea 07/17/23 10/07/24 Rx Metrix Glucose Test Strip) pen needle, diabetic 32 gauge x #200 ea 07/17/2310/07 Rx 1/4" (Unifine Pentips) amlodipine 5 mg tablet 5 mg PO DAILY blood pressure #90 01/13/24 10/07/24 Rx tabs blood pressure monitor #1 ea 02/03/24 10/07/24 Rx carvedilol 12.5 mg tablet 12.5 mg PO BID #180 tabs 10/07/24 Rx tizanidine 4 mg tablet 12 mg (3 x 4 mg) PO QHS musc le 04/02/24 10/07/24 Rx spasticity/cramps #90 tabs sacubitril 49 mg-valsartan 51 mg 1 tab PO BID #180 tab s 05/13/24 10/07/24 Rx tablet (Entresto) insulin lispro 100 unit/mL 13 unit (0.13 mL) subcut TI D 3 07/30/24 10/07/24 Rx subcutaneous pen (Humalog KwikPen months #35.1 mL (U-100) Insulin) flash glucose scanning reader #1 ea 09/09/24 10/07/24 Rx (FreeStyle Ynes 2 [place]) flash glucose sensor (FreeStyle #1 ea 09/09/24 5 Rx Ynes 2 Sensor kit) Jardiance 25 mg tablet 25 mg PO DAILY diabetes #90 tabs 10/01/24 10/07/24 Rx (empagliflozin) atorvastatin 80 mg tablet See Rx Instructions .Route 0 10/13/24 10/28/24 Rx .COMPLEX #90 tabs insulin glargine 100 unit/mL (3 60 unit (0.6 mL) subcu t DAILY 3 10/22/24 10/28/24 Rx mL) subcutaneous pen (Lantus months #54 mL Solostar U-100 Insulin) Ejection fraction %: 35 Have you fallen in the past year?: No PFSH Medical History Sweats, sweating, excessive Upper respiratory infection CAD (coronary artery disease) Bilateral knee pain Hypothyroidism Insulin dependent diabetes mellitus Health care maintenance BPH (benign prostatic hyperplasia) Wears glasses Hx of thyroid disease Hx of kidney disease Hx of irritable bowel syndrome History of high cholesterol Hx of essential hypertension Hx of hearing loss Hx of diabetes mellitus History of cataract History of back problems Hx of chronic arthritis Thyroid cancer Headache History of subdural hematoma Cardiomyopathy Abnormal findings on diagnostic imaging of heart and coronary circulation Postoperative atrial fibrillation Pure hypercholesterolemia Bronchitis Type 2 diabetes mellitus Balance problem Stroke Diarrhea Chest pain headaches Fatigue SOB (shortness of breath) History of hypertension Essential hypertension Atrial flutter Bradycardia Subdural hematoma (05/05/18) 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/23/17) History of acute inferior wall NH (12/23/17) GERD (gastroesophageal reflux disease) Diabetes mellitus, type II Surgical History Hx of tonsillectomy Hx of craniotomy History of thyroidectomy History of coronary artery bypass graft (~11/23/18) History of left heart catheterization (09/13/20) History of eye surgery History of appendectomy History of foreign hole surgery (05/05/18) Stented coronary artery (01/22/18) Family History Father Negative for ASCVD Mother Negative for ASCVD Social History household members: spouse housing: house current occupational status: retired sexually active: No Smoking Status: Former smoker Tobacco: How many years used: 20 how long ago did patient quit smokin years ago alcohol intake: never substance use type: does not use caffeine: Yes Type: coffee Number of servings: 3 what type of physical activity do you participate in: none pita/shinto: Rastafarian seatbelt use: sometimes do you feel safe at home: Yes ROS Const Const: Negative for fatigue or weakness Eyes Eyes: Negative for change in vision ENT ENT: Positive for balance problems (slight); Negative for dizziness Cardio Chest Pain: No Palpitations: No Edema: None Resp Respiratory: Positive for SOB with activity; Negative for SOB at rest or SOB orthopnea\\SOB lying down GI GI: Negative nausea or heartburn Musc Musc: Positive for balance problems (slight) Neuro Neuro: Positive for lightheadedness (getting up to quick); Negative for dizziness, near syncope, syncope or weakness Endo Endo: Negative for fatigue Cardiology Exam Const Appearance: comfortable and no acute distress Nutritional Appearance: well nourished and obese Neck Neck: no JVD Carotids: Negative bruit Chest Auscultation: Bilateral: Clear to Auscultation Cardio Rate: regular rate Rhythm: regular rhythm Heart sounds: S1 normal and S2 normal GI GI: obese Neuro General: patient alert, patient awake and patient oriented x3 Extremities Lower Extremity Edema: +1: Bilateral Supplemental Info Supplemental Information Labs: HDL Cholesterol 44 mg/dL (40-) Cholesterol 183 mg/dL (<=200) Triglycerides 242 mg/dL (-199) H Diagnostics: Electrocardiogram Echocardiogram Pulmonary: No Data to Display Past Visits: Cardiology Visit 10/28/24 Assessment and Plan Assessment and Plan (1) CAD (coronary artery disease): Status: Chronic Comment: History of CABG. Plan: Continue medical management. Beta-blockers. Amlodipine. Statins. Per patient, he has had spontaneous subdural hematomas before while on aspirin. According to him, he has been told never to take any antiplatelet agents ever. (2) Hypertension: Status: Chronic Plan: Carvedilol, Entresto, amlodipine. Increase Entresto to 97/103 mg twice daily. Start on furosemide. (3) History of subdural hematoma: Status: Resolved Plan: As per neurology. (4) Cardiomyopathy: Status: Chronic Plan: On Entresto, beta-blockers, Jardiance. Increase Entresto to 97/103 mg twice daily. EF 35% on echocardiogram. Referred to EP for consideration for ICD. (5) Diabetes: Status: Chronic Plan: As per PCP. (6) Peripheral arterial disease: Status: Chronic Plan: Patient has significant bilateral peripheral arterial disease of his lower extremities. Complains of bilateral calf claudication with exertion. However the issue is that any interventional work wouldentail him being on antiplateletagents at least for a few weeks. Counseled regarding exercise therapy. (7) Dyslipidemia: Status: Chronic Plan: Atorvastatin. Plan Details Follow Up: 6 Months Coding Level of Care Code Off vis,est,level 4 Diagnoses CAD (coronary artery disease) I25.10 Hypertension I10 History of subdural hematoma Z86.79 Cardiomyopathy I42.9 Diabetes E11.9 Peripheral arterial disease I73.9 Dyslipidemia E78.5 Coding Level of Care Code Off vis,est,level 4 Diagnoses CAD (coronary artery disease) I25.10 Hypertension I10 History of subdural hematoma Z86.79 Cardiomyopathy I42.9 Diabetes E11.9 Peripheral arterial disease I73.9 Dyslipidemia E78.5 Clinical Quality Measures Falls Risk Screening/Assistive Devices Have you fallen in the past year?: No Cardiac Ejection fraction %: 35 10/28/24 1451 MD> Date _ Esteban Yeboah MD Cosigner Signature: Date (if applicable) CC: Dr. Shan Nazario MD ~ [facility] [id number] Progress note Author Esteban Yeboah [facility] Note Date/Time October 28, 2024 2:51pm [facility] [address] [place], [place] [address]. [address] [place] [address] OFFICE VISIT Date of Service: 10/28/24 MR#: [id number] Acct: [id number] Name: DOMINGA LARKIN Rep #: [id number] : 1950 Provider: Dr. Gerber Yeboah MD Age/Sex: 73/M Location: [facility] Status: Signed HPI HPI History of Present Illness Details: This gentleman with history of coronary artery disease status post CABG, ischemic cardiomyopathy, hypertension, dyslipidemia and diabetes mellitus is here for follow-up visit. Denies any complaints today. No chest pains. No shortness of breath. No orthopnea or PND. Occasional ankle edema. Intake Vital Signs 09/09/24 14:52 10/28/24 14:09 Height 5 ft 8 in 5 ft 8 in Weight: 231 lb 236 lb BMI 35.1 35.9 BP 124/78 H 141/83 H Blood Pressure Location Lt brachial Lt brachial Position Sitting Sitting Respiration 16 20 H Pulse 66 57 L Pulse Source Monitor Monitor Temp 96.7 F L Pulse Oximetry (%) 94 Oxygen Delivery Method room air Intake Visit Reasons: 6 M FU Steam Cleaner Required: No Is patient in pain?: No Allergies lisinopril Adverse Reaction (Intermediate, Verified 10/28/24 14:09) COUGH Medications ?Medication ?Instructions ?Recorded ?Confirmed ?Type lansoprazole 15 mg delayed 15 mg PO DAILY reflux 12/2310/07/24 History release,disintegrating tablet cholecalciferol (vitamin D3) 50 2,000 unit PO DAILY vi tamin 12/11/18 10/07/24 History mcg (2,000 unit) capsule (Vitamin D3) Lactobacillus acidophilus 100 mg PO DAILY 10/20/21 History (Acidophilus capsule) psyllium husk 0.4 gram capsule 0.4 g PO DAILY 10/20/21 10/07/24 History (Daily Fiber) Handicap Placard #1 ea 09/05/22 10/07/24 Rx levothyroxine 100 mcg tablet 100 mcg PO DAILY #90 tabs 04/02/23 10/07/24 Rx blood-glucose meter #1 ea 04/03/23 10/07/24 Rx lancets 30 gauge (Unilet Lancets) #100 ea 05/29/23 Rx blood sugar diagnostic (True #100 ea 07/17/23 10/07/24 Rx Metrix Glucose Test Strip) pen needle, diabetic 32 gauge x #200 ea 07/17/2310/07 Rx 1/4" (Unifine Pentips) amlodipine 5 mg tablet 5 mg PO DAILY blood pressure #90 01/13/24 10/07/24 Rx tabs blood pressure monitor #1 ea 02/03/24 10/07/24 Rx carvedilol 12.5 mg tablet 12.5 mg PO BID #180 tabs 10/07/24 Rx tizanidine 4 mg tablet 12 mg (3 x 4 mg) PO QHS musc le 04/02/24 10/07/24 Rx spasticity/cramps #90 tabs sacubitril 49 mg-valsartan 51 mg 1 tab PO BID #180 tab s 05/13/24 10/07/24 Rx tablet (Entresto) insulin lispro 100 unit/mL 13 unit (0.13 mL) subcut TI D 3 07/30/24 10/07/24 Rx subcutaneous pen (Humalog KwikPen months #35.1 mL (U-100) Insulin) flash glucose scanning reader #1 ea 09/09/24 10/07/24 Rx (FreeStyle Ynse 2 Savanna) flash glucose sensor (FreeStyle #1 ea 09/09/24 5 Rx Ynes 2 Sensor kit) Jardiance 25 mg tablet 25 mg PO DAILY diabetes #90 tabs 10/01/24 10/07/24 Rx (empagliflozin) atorvastatin 80 mg tablet See Rx Instructions .Route 0 10/13/24 10/28/24 Rx .COMPLEX #90 tabs insulin glargine 100 unit/mL (3 60 unit (0.6 mL) subcu t DAILY 3 10/22/24 10/28/24 Rx mL) subcutaneous pen (Lantus months #54 mL Solostar U-100 Insulin) Ejection fraction %: 35 Have you fallen in the past year?: No PFSH Medical History Sweats, sweating, excessive Upper respiratory infection CAD (coronary artery disease) Bilateral knee pain Hypothyroidism Insulin dependent diabetes mellitus Health care maintenance BPH (benign prostatic hyperplasia) Wears glasses Hx of thyroid disease Hx of kidney disease Hx of irritable bowel syndrome History of high cholesterol Hx of essential hypertension Hx of hearing loss Hx of diabetes mellitus History of cataract History of back problems Hx of chronic arthritis Thyroid cancer Headache History of subdural hematoma Cardiomyopathy Abnormal findings on diagnostic imaging of heart and coronary circulation Postoperative atrial fibrillation Pure hypercholesterolemia Bronchitis Type 2 diabetes mellitus Balance problem Stroke Diarrhea Chest pain headaches Fatigue SOB (shortness of breath) History of hypertension Essential hypertension Atrial flutter Bradycardia Subdural hematoma (05/05/18) 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/23/17) History of acute inferior wall NH (12/23/17) GERD (gastroesophageal reflux disease) Diabetes mellitus, type II Surgical History Hx of tonsillectomy Hx of craniotomy History of thyroidectomy History of coronary artery bypass graft (~11/23/18) History of left heart catheterization (09/13/20) History of eye surgery History of appendectomy History of foreign hole surgery (05/05/18) Stented coronary artery (01/22/18) Family History Father Negative for ASCVD Mother Negative for ASCVD Social History household members: spouse housing: house current occupational status: retired sexually active: No Smoking Status: Former smoker Tobacco: How many years used: 20 how long ago did patient quit smokin years ago alcohol intake: never substance use type: does not use caffeine: Yes Type: coffee Number of servings: 3 what type of physical activity do you participate in: none pita/shinto: Rastafarian seatbelt use: sometimes do you feel safe at home: Yes ROS Const Const: Negative for fatigue or weakness Eyes Eyes: Negative for change in vision ENT ENT: Positive for balance problems (slight); Negative for dizziness Cardio Chest Pain: No Palpitations: No Edema: None Resp Respiratory: Positive for SOB with activity; Negative for SOB at rest or SOB orthopnea\\SOB lying down GI GI: Negative nausea or heartburn Musc Musc: Positive for balance problems (slight) Neuro Neuro: Positive for lightheadedness (getting up to quick); Negative for dizziness, near syncope, syncope or weakness Endo Endo: Negative for fatigue Cardiology Exam Const Appearance: comfortable and no acute distress Nutritional Appearance: well nourished and obese Neck Neck: no JVD Carotids: Negative bruit Chest Auscultation: Bilateral: Clear to Auscultation Cardio Rate: regular rate Rhythm: regular rhythm Heart sounds: S1 normal and S2 normal GI GI: obese Neuro General: patient alert, patient awake and patient oriented x3 Extremities Lower Extremity Edema: +1: Bilateral Supplemental Info Supplemental Information Labs: HDL Cholesterol 44 mg/dL (40-) Cholesterol 183 mg/dL (<=200) Triglycerides 242 mg/dL (-199) H Diagnostics: Electrocardiogram Echocardiogram Pulmonary: No Data to Display Past Visits: Cardiology Visit 10/28/24 Assessment and Plan Assessment and Plan (1) CAD (coronary artery disease): Status: Chronic Comment: History of CABG. Plan: Continue medical management. Beta-blockers. Amlodipine. Statins. Per patient, he has had spontaneous subdural hematomas before while on aspirin. According to him, he has been told never to take any antiplatelet agents ever. (2) Hypertension: Status: Chronic Plan: Carvedilol, Entresto, amlodipine. Increase Entresto to 97/103 mg twice daily. Start on furosemide. (3) History of subdural hematoma: Status: Resolved Plan: As per neurology. (4) Cardiomyopathy: Status: Chronic Plan: On Entresto, beta-blockers, Jardiance. Increase Entresto to 97/103 mg twice daily. EF 35% on echocardiogram. Referred to EP for consideration for ICD. (5) Diabetes: Status: Chronic Plan: As per PCP. (6) Peripheral arterial disease: Status: Chronic Plan: Patient has significant bilateral peripheral arterial disease of his lower extremities. Complains of bilateral calf claudication with exertion. However the issue is that any interventional work would entail him being on antiplateletagents at least for a few weeks. Counseled regarding exercise therapy. (7) Dyslipidemia: Status: Chronic Plan: Atorvastatin. Plan Details Follow Up: 6 Months Coding Level of Care Code Off vis,est,level 4 Diagnoses CAD (coronary artery disease) I25.10 Hypertension I10 History of subdural hematoma Z86.79 Cardiomyopathy I42.9 Diabetes E11.9 Peripheral arterial disease I73.9 Dyslipidemia E78.5 Coding Level of Care Code Off vis,est,level 4 Diagnoses CAD (coronary artery disease) I25.10 Hypertension I10 History of subdural hematoma Z86.79 Cardiomyopathy I42.9 Diabetes E11.9 Peripheral arterial disease I73.9 Dyslipidemia E78.5 Clinical Quality Measures Falls Risk Screening/Assistive Devices Have you fallen in the past year?: No Cardiac Ejection fraction %: 35 10/28/24 1451 <Electronically signed by Esteban Yeboah MD> Date _ Esteban Yeboah MD Cosigner Signature: Date (if applicable) CC: Dr. Shan Nazario MD ~ [facility] Work Phone: 1(389) 304-899807-16-2025 Evaluation note* Diagnosis Onset Date Resolution Status Admit Date Sweats, sweating, excessive acute September 09, 2024 2:44pm BPH (benign prostatic hyperplasia) chronic September 09, 2024 2:44pm Hypertension chronic September 09, 2 025 2:44pm Hypothyroidism chronic September 09, 2024 2:44pm Type 2 diabetes mellitus chronic September 09, 2024 2:44pm CAD (coronary artery disease) chroni c October 28, 2024 1:28pm Cardiomyopathy chronic October 28, 2024 1:28pm Diabetes chronic October 28, 2024 1:28pm Dyslipidemia chronic October 1:28pm Hypertension chronic October 1:28pm Peripheral arterial disease chronic October 28, 2024 1:28pm History of subdural hematoma resolve d October 28, 2024 1:28pm [facility] Work Phone: 1(257) 861-702907-16-2025 Evaluation note* Diagnosis Onset Date Resolution Status Admit Date Sweats, sweating, excessive acute September 09, 2024 2:44pm BPH (benign prostatic hyperplasia) chronic September 09, 2024 2:44pm Hypertension chronic September 09, 2 025 2:44pm Hypothyroidism chronic September 09, 2024 2:44pm Type 2 diabetes mellitus chronic September 09, 2024 2:44pm CAD (coronary artery disease) chroni c October 28, 2024 1:28pm Cardiomyopathy chronic October 28, 2024 1:28pm Diabetes chronic October 28, 2024 1:28pm Dyslipidemia chronic October 1:28pm Hypertension chronic October 1:28pm Peripheral arterial disease chronic October 28, 2024 1:28pm History of subdural hematoma resolve d October 28, 2024 1:28pm Muscle cramps acute November 1:32pm Low back pain chronic November 1:32pm History of subdural hematoma resolve d December 03, 2024 1:32pm CAD (coronary artery disease) chroni c December 18, 2024 2:02pm Chronic back pain chronic December 18, 2024 2:02pm Hypertension chronic November 2:02pm Hypothyroidism chronic December 182024 2:02pm Leg wound, right chronic December 18, 2024 2:02pm Type 2 diabetes mellitus chronic December 18, 2024 2:02pm [facility] Work Phone: 1(295) 568-596204-09-2025 Evaluation note* Diagnosis Onset Date Resolution Status Admit Date BPH (benign prostatic hyperplasia) chronic June 03, 2024 12:57pm CAD (coronary artery disease) chroni c June 03, 2024 12:57pm Essential hypertension chronic Ap 2024 12:57pm Hypothyroidism chronic June 03, 2024 12:57pm Type 2 diabetes mellitus chronic June 03, 2024 12:57pm Sweats, sweating, excessive acute September 09, 2024 2:44pm BPH (benign prostatic hyperplasia) chronic September 09, 2024 2:44pm Hypertension chronic September 09, 2 025 2:44pm Hypothyroidism chronic September 09, 2024 2:44pm Type 2 diabetes mellitus chronic September 09, 2024 2:44pm [facility] Work Phone: 1(808) 603-525303-19-2025 Evaluation note* Diagnosis Onset Date Resolution Status Admit Date Bradycardia chronic May 13, 2 025 12:53pm CAD (coronary artery disease) chroni c May 13, 2024 12:53pm Cardiomyopathy chronic April 12:53pm Diabetes chronic May 13 12:53pm Dyslipidemia chronic May 13, 2024 12:53pm Hypertension chronic May 13, 2024 12:53pm Peripheral arterial disease chronic May 13, 2024 12:53pm History of subdural hematoma resolve d May 13, 2024 12:53pm BPH (benign prostatic hyperplasia) chronic June 03, 2024 12:57pm CAD (coronary artery disease) chroni c June 03, 2024 12:57pm Essential hypertension chronic Ap 2024 12:57pm Hypothyroidism chronic June 03, 2024 12:57pm Type 2 diabetes mellitus chronic June 03, 2024 12:57pm [facility] Work Phone: 1([phone]) 140-352904-11-2023 Discharge summary Author Mike Green [facility] June 05, 2022 10:18am Note Date/Time June 01, 2022 2:18 pm [facility] Physical Therapy [facility] [address] [place] [address] / REHABILITATION SERVICES DISCHARGE SUMMARY MR#: [id number] Acct: [id number] Name: DOMINGA LARKIN Rep #: [id number] : 1950 71 From: Cert. KATT IsraelT, OCS Referring Dr.: OUT OF TOWN DOCTOR Status: REG RCR Insurance: MEDICARE PART A B [facility] It has been my pleasure to treat DOMINGA LARKIN referred by CHE SMITH, with the diagnosis of SPONDYLOSIS WITHOUT MYELOPATHY OR RADICULAOPTHY ,[place]ALGIA for a total of 18 visit(s). Discharge Date: Please see the following information for a summary of their discharge status. Subjective: PATIENT SEEMS TO BE BETTER..ABLE TO WALK FURTHER Bilateral Back Pain Intensity (Out of 10): 3 Bilateral Lower Extremity Pain Intensity (Out of 10): 3 % Improvement: 50 Objective/Function: POSTURE: mild forward posture. GAIT: reciprocal pattern mild forward posture. LUMBAR ROM: flexion min loss ,extension min loss .side glides min/mod loss. MMT: quads/hams 4/5 ,hip flexion 4-/5 ,ankle 4/5 Goal 1:: [id number] to be I with Aquatic Therapy program for community based program Goal Progress: Goal Met Goal 2:: Patient improve posture/body mechanics for ADLS' Goal Progress: Goal Met Goal 3:: Patient to improve lumbar ROM for function of recovery for ADLS Goal Progress: Goal Met Goal 4:: Patient to improve lumbar ROM for function of recovery to be able to tie shoes Goal Progress: Goal Met Goal 5:: Patient to improve back oswestry score by 5 points to improve QOL Goal Progress: Goal Met Plan: D/C TO OWN ON AQUATIC THERAPY If there are questions or concerns regarding this patient's physical therapy, please feel free to call me at [phone]. Thank you for the referral of thispatient. Sincerely, Mike Green, PT, Cert MDT, OCS Balance/Gait/Functional tests - Balance/Special Test Scores Oswestry Low Back Score: 18 <Electronically signed by Mike Green PT, Cert. MDT, OCS> 06/05/22 1018 CC: CHE SMITH; Dr. Shan Nazario MD ~ [facility] Signed [facility] Work Phone: 1(190) 120-263804-22-2022 History of Present illness Narrative* Lourdes Jacobs RN - 06/16/2021 7:01 PM EDT Pt's room clean, report to Billie cheung, pt denies pain or SOB. drsg D&I, pt's family @ bedside * Colleen Card RN - 06/16/2021 6:33 PM EDT Meds to Bed gave meds to Deanne * Lourdes Jacobs RN - 06/16/2021 6:32 PM EDT Report from Colleen cheung, pt denies pain or nausea. Speech clear, pt waiting for his room to be cleaned, drsg D&I documented in this [facility] Work Phone: 1([phone]) 487-872304-22-2022 Hospital Discharge instructions* Instructions* Calli Waters DO - 06/16/[address] Calli Waters 1. Keep the area clean and dry. 2. Avoid any heavy lifting, straining, or exertion. This will prevent bleeding. 3. A cold compress may be applied to the area to minimize swelling and bruising. 4. Maintain the steri-strip dressing. 5. If the steri-strips fall off prematurely, then you should begin routine wound care until your first follow-up appointment: A. Clean the area twice daily using warm soap water and then gently pat dry. Do not use peroxide for cleaning. B. Liberally apply Bacitracin Ointment directly to the area to protect it from drying and crusting. C. You do not need to keep a dressing or bandage over the area unless there is potential for dirt or debris contacting it. D. You may shower or bathe directly over the area. 6. Resume all routine home medications unless instructed otherwise. If you have any further questions or concerns regarding comfort or care, please contact our office at any time. 1. If the surgical area develops any pain, redness, bleeding, or drainage 2. If you have any problems, questions, or concerns. OFFICE: [phone] IF YOU HAVE AN EMERGENCY, AND ARE UNABLE TO REACH THE DOCTOR AT THE ABOVE NUMBER, CALL OR GO TO [facility] EMERGENCY ROOM: [phone] documented in this [facility] Work Phone: 1(542) 856-547204-15-2022 Hospital Discharge instructions* Instructions* Laurie Iqbal, JOSHUA - 06/09/2021 PLEASE BE AWARE THAT VISITORS UNDER THE AGE OF 12 AND FOOD/DRINKS ARE NO LONGER PERMITTED IN THE SAME DAY SURGERY DEPARTMENT. IF YOU USE A CPAP MACHINE OR RESCUE INHALER AT HOME PLEASE BRING THESE ITEMS WITH YOU THE DAY OF SURGERY. MEDICATION INSTRUCTIONS PRIOR TO SURGERY PLEASE BRING PROVIDED LIST BACK WITH YOU THE DAY OF SURGERY WITH DATE/TIME LAST DOSE OF MEDICATIONSTAKEN. HOLD ALL INSULIN AM OF SURGERY hOLD LOSARTAN AND JARDIANCE AM OF SURGERY TAKE 16 UNITS OF INSULIN THE NIGHT BEFORE SURGERY PLEASE TAKE CARVEDILOL. AMIODARONE, AMLODIPINE AND IMDUR THE AM OF SURGERY HOLD IBUPROFEN FOR 24 HOURS PRIOR TO SURGERY MAY TAKE TYLENOL FOR PAIN * Attachments The following attachments cannot be sent through Care Everywhere. * Thyroidectomy: Pre-op ([place]) * Thyroidectomy: Post-op ([place]) [facility] Work Phone: [phone]) 807-549508-11-2021 NoteHNO ID: [id number] Author: Camila Samson, PT Service: ? Author Type: Physical Therapist Type: Progress Notes Filed: 10/05/2020 10:49 AM Note Text: Episode Visit Count: 12 Therapist That Will Oversee The Plan Of Care: Camila Samson Start of Care Date: 08/02/20 Onset Date: 08/13/19 Plan of Care Certification Date: 09/05/20 Next Certification Due Date: 10/07/20 Patient Identified by Name and Date of : Yes REHABILITATION AND SPORTS THERAPY PHYSICAL THERAPY DISCONTINUANCE OF CARE PLAN OF CARE UPDATE: Assessment: Dominga Larkin is discontinued from Physical Therapy services due to Patient/Client declining further intervention.. Patient was seen for 12 visits from Start of Care Date: 08/02/20 to 10/05/2020 and treatment included: Therapeutic exercise, Aquatic PT and Patient/Family/Caregiver Education. Patient reports that he is feeling better overall and does not want to continue with PT due to financial reasons. He demonstrates increased fluidity of movement with transfers and gait. He demonstrates improved leg strength and postural awareness. He is attempting to get into the pool a couple of times per week. He is inquiring about doing some of the aquatic exercises on land. Informed patient that he can try to do some of the exercises on land as he tolerates. He continues to have difficulty with prolonged walking. Recently, his Lipitor medication has been adjusted and they are waiting to see if this helps his leg cramping. He does note not having to sit as much when he is walking. Improved flexibility noted. Patient has been given written HEP for aquatic exercises. See below for updated goal status. Patient to continue with exercises on his own at this time per his request. Continued improvement expected with regular performance of HEP. Goals for Episode of Care: created on 08/02/20 through 10/07/20: Updated 09/05/20; 10/05/20: Restore pain-free lumbar ROM to WNL for flexion and B rotation to allow for increased ease with functional activities (Progressing- met for rotation. Continues to have slight restriction for flexion) Stand / Walk 45-60 minutes without pain/symptoms (Not met- Maintain proper sitting posture throughout session (MET) Knowledgeable regarding prophylaxis. (Progressing- needs to be able to get into the pool more frequently) Patient will increase strength of hip flexors and extensors to 4+/5 to allow for increase tolerance for walking/yardwork. (Progressing- remains limited for hip extension) Patient will increase flexibility of B hip flexors and hamstrings to WNL to improve mechanics and decrease pain. (Not met- continues to have a lot of tightness in hip flexors) Aquatic Goal: Patient will be independent with aquatic program and transition to a community pool. (MET-has been coming to PT 2x/week) Improve postural awareness in sitting/standing to decrease strain on lower back. (MET- more upright posture noted) Patient demonstrates 5x sit<-->stand within norms for patients stated age group demonstrating increased strength and balance. (Not met- no change) Patient Goals: "Im not really sure"; rebuild mm mass in L shoulder blade SUBJECTIVE: Patient Reason for Visit: Patient reports that his significant other feels like he is doing better. Patient reports that he got a bill from the [facility] that he cannot pay at this time. He reports that he is going to cut the water therapy short because of his financial status. He reports that the aquatic PATCH MACHINE OPERATOR gave him his exercises in written format so that he can continue them. He reports feeling better overall.He is weaning down off of Lipitor to see if that will help his leg cramping. He reports that he feels like he is walking better. Pain: Pain Pain Level: 0 Pain Location: Sacrum Additional Pain Information : Location 2 Pain Level 2: 8 Pain Location 2: Leg - Right Description 2: Sore Frequency 2: Intermittent Post Treatment Pain Post Treatment Pain Level: No Change Post Treatment Pain Location: Sacrum PROMIS Scales T-scores: mean of general population = 50. 5 points is clinically meaningfully difference Percentiles provide an indication of how the patient's score ranks in relation to the general population. Higher percentile rankings indicate better function/quality of life. 50th percentile is the average of the general population and indicates half of respondents had a worse score. T-scores: mean of general population = 50. 5 points is clinically meaningfully difference Percentiles provide an indication of how the patient's score ranks in relation to the general population. Higher percentile rankings indicate better function/quality of life. 50th percentile is the average of the general population and indicates half of respondents had a worse score. OBJECTIVE MEASURES WITH LEVEL OF FUNCTION: Posture / Alignment Posture: Forward head;Increased thoracic kyphosis;R (more content not included)...[id number] History of Present illness Narrative* Camila Samson, PT - 10/05/2020 10:36 AM EDT Episode Visit Count: 12 Therapist That Will Oversee The Plan Of Care: Camila Samson Start of Care Date: 08/02/20 Onset Date: 08/13/19 Plan of Care Certification Date: 09/05/20 Next Certification Due Date: 10/07/20 Patient Identified by Name and Date of : Yes REHABILITATION AND SPORTS THERAPY PHYSICAL THERAPY DISCONTINUANCE OF CARE PLAN OF CARE UPDATE: Assessment: Dominga Larkin is discontinued from Physical Therapy services due to Patient/Client declining further intervention.. Patient was seen for 12 visits from Start of Care Date: 08/02/20 to 10/05/2020 and treatment included: Therapeutic exercise, Aquatic PT and Patient/Family/Caregiver Education. Patient reports that he is feeling better overall and does not want to continue with PT due tofinancial reasons. He demonstrates increased fluidity of movement with transfers and gait. He demonstrates improved leg strength and postural awareness. He is attempting to get into the pool a coupleof times per week. He is inquiring about doing some of the aquatic exercises on land. Informed patient that he can try to do some of the exercises on land as he tolerates. He continues to have difficulty with prolonged walking. Recently, his Lipitor medication has been adjusted and they are waitingto see if this helps his leg cramping. He does note not having to sit as much when he is walking. Improved flexibility noted. Patient has been given written HEP for aquatic exercises. See below for updated goal status. Patient to continue with exercises on his own at this time per his request. Continued improvement expected with regular performance of HEP. Goals for Episode of Care: created on 08/02/20 through 10/07/20: Updated 09/05/20; 10/05/20: Restore pain-free lumbar ROM to WNL for flexion and B rotation to allow for increased ease with functional activities (Progressing- met for rotation. Continues to have slight restriction for flexion) Stand / Walk 45-60 minutes without pain/symptoms (Not met- Maintain proper sitting posture throughout session (MET) Knowledgeable regarding prophylaxis. (Progressing- needs to be able to get into the pool more frequently) Patient will increase strength of hip flexors and extensors to 4+/5 to allow for increase tolerance for walking/yardwork. (Progressing- remains limited for hip extension) Patient will increase flexibility of B hip flexors and hamstrings to WNL to improve mechanics and decrease pain. (Not met- continues to have a lot of tightness in hip flexors) Aquatic Goal: Patient will be independent with aquatic program and transition to a community pool. (MET-has been coming to PT 2x/week) Improve postural awareness in sitting/standing to decrease strain on lower back. (MET- more upright posture noted) Patient demonstrates 5x sit<-->stand within norms for patients stated age group demonstratingincreased strength and balance. (Not met- no change) Patient Goals: "Im not really sure"; rebuild mm mass in L shoulder blade SUBJECTIVE: Patient Reason for Visit: Patient reports that his significant other feels like he is doing better. Patient reports that he got a bill from the [facility] that he cannot pay at thistime. He reports that he is going to cut the water therapy short because of his financial status. He reports that the aquatic PATCH MACHINE OPERATOR gave him his exercises in written format so that he can continue them. He reports feeling better overall.He is weaning down off of Lipitor to see if that will help his leg cramping. He reports that he feels like he is walking better. Pain: Pain Pain Level: 0 Pain Location: Sacrum Additional Pain Information : Location 2 Pain Level 2: 8 Pain Location 2: Leg - Right Description 2: Sore Frequency 2: Intermittent Post Treatment Pain Post Treatment Pain Level: No Change Post Treatment Pain Location: Sacrum PROMIS Scales T-scores: mean of general population = 50. 5 points is clinically meaningfully difference Percentiles provide an indication of how the patient's score ranks in relation to the general population. Higher percentile rankings indicate better function/quality of life. 50th percentile is the average of the general population and indicates half of respondents had a worse score. T-scores: mean of general population = 50. 5 points is clinically meaningfully difference Percentiles provide an indication of how the patient's score ranks in relation to the general population. Higher percentile rankings indicate better function/quality of life. 50th percentile is the average of the general population and indicates half of respondents had a worse score. OBJECTIVE MEASURES WITH LEVEL OF FUNCTION: Posture / Alignment Posture: Forward head;Increased thoracic kyphosis;Rounded shoulders;Decreased lumbar lordosis Sitting Posture: Decreased lumbar lordosis;Fair Spine Observations R Lumbar Spine Palpation Tenderness: No tenderness noted L Lumbar Spine Palpation Tenderness: No tenderness noted Sensation - Lumbar Sensation: Grossly Intact Lumbar Spine AROM Lumbar Flexion: Minimal limitation Lumbar Extension: Normal Lumbar R Side-Bend: Normal Lumbar L Side-Bend: Normal Lumbar R Rotation: Normal Lumbar L Rotation: Normal LE Flexibility R Hamstring Flexibility: WFL L Hamstring Flexibility: WFL R Chente Test: + L Chente Test: + R Gastrocnemius Flexibility: WFL L Gastrocnemius Flexibility: WFL LE Strength R Hip Extension: 4/5 R Hip Flexion (L2): 5/5 R Hip ABduction: 5/5 R Knee Extension (L3): 5/5 R Knee Flexion: 5/5 L Hip Extension: 4/5 L Hip Flexion (L2): 5/5 L Hip ABduction: 5/5 L Knee Extension (L3): 5/5 L Knee Flexion: 5/5 Functional Strength Functional Strength: independent with bed mobility and transfers; ability to partially squat and recover with ue assistance. Gait Weight Bearing Status: FWB Gait: Independent Gait Distance (feet): 60 Gait Device: None Functional Performance Test Results 5 Times Sit to Stand Test : 14.9 sec TREATMENT: Therapeutic Exercise: 1: reassessment of status Skilled Intervention: Proper technique & skills to assess ROM & strength to properly adjustplan of care. Educated patient regarding progression of aquatic exercises to land exercises. Billing Therapeutic Exercise Treatment Minutes: 30 Total Treatment Time Minutes (timed and untimed codes) : 32 Camila Samson PT [facility] Miscellaneous Notes* Telephone Encounter - Hazel Chiang - 09/30/2020 12:16 PM EDT Left patient a message Pool is not ready to be open on 10-02-20 Need to cancel This appointment documented in [facility] encounterC[facility] NoteHNO ID: [id number] Author: John Herrera PTA Service: ? Author Type: Program Officer Type: Progress Notes Filed: 09/22/2020 2:41 PM Note Text: Episode Visit Count: 11 Therapist That Will Oversee The Plan Of Care: Camila Samson Start of Care Date: 08/02/20 Onset Date: 08/13/19 Plan of Care Certification Date: 09/05/20 Next Certification Due Date: 10/07/20 Patient Identified by Name and Date of : Yes REHABILITATION AND SPORTS THERAPY PHYSICAL THERAPY TREATMENT NOTE ASSESSMENT: Dominga Lewis Trae demonstrated increased hip and lumbar mobility. Less hand support pool wall with Sl squat and heel raise. PLAN FOR NEXT VISIT: continue SL balance SUBJECTIVE: Patient Reason for Visit: Pt reports right leg sore from test earlier this week. Pain intermittnet when walking. No sacrum pain today. Pain: Pain Pain Level: 0 Pain Location: Sacrum Additional Pain Information : Location 2 Pain Level 2: 10 Pain Location 2: Leg - Right Description 2: Aching Frequency 2: Intermittent Detailed Pain Score: (walking) Post Treatment Pain Post Treatment Pain Level: No Change OBJECTIVE MEASURES WITH LEVEL OF FUNCTION: Patient ambulates to/from locker room without device. Patient enters?/exited the pool via stairs, SBA. Patient accompanied by clinician in water throughout session, SBA unless otherwise noted TREATMENT: Aquatic Therapy: Footwear on pool deck pre-treatment: Yes, patient wearing appropriate footwear and appeared safe on pool deck Footwear on pool deck post-treatment: Yes, patient wearing appropriate footwear and appeared safe on pool deck Aquatic Therapy ([id number]): 1 1: See note below for exercises performed ?WATER DEPTH 3'6" -?4'0" (paddle level 5) - Giant dynamic steps forward/ retro,?shoulder alt flex/ext x 2 length each - Giant dynamic side step right/left,?B shoulder add/abd x 1 length - April with rows x 2 ?? WATER DEPTH 3'9"?-4'0" (light)(cuff 1) -Static stand, (2) kickboard push down x 15, r/L x 15 each -R/L trunk rotation with hands resting on kickboard, x15 each direction? -B horizontal shoulder abduction, paddle #5 x 15 ? ??WATER DEPTH 3'6"?(cuff 1) -R/L hamstring stretch 2 x?30 seconds each, back to pool wall ? -R/L hamstring curls x?15?each, 2 hand support at pool wall -Clockwise/counterclockwise 'hoola hoop', tolerable range,?no?hands support at pool wall, 1 x 15 each direction? -SL R/L squat x?20 -hip R/L flexion/extension, abduction/adduction x 15 -LAQ R/L x 15?each -SL R/L heel raise 2 x 10 -SL balance Right/left 20 sec hold, 30 sec hold , intermittent UE support ? ??Skilled Intervention: Patient was educated in proper exercise technique and purpose for exercises. Skilled judgment was provided in selection of appropriate interventions. Skilled judgment used to assess appropriate program for balance and coordination activity. Patient education: ?Proper hydration following aquatic session Advised to rest as needed upon exiting pool prior to walking to locker room to re-acclimate to full weight bearing status Patient with good understanding. Billing: Aquatic Therapy Treatment Minutes: 40 Total Treatment Time Minutes (timed and untimed codes) : 43 John Herrera [facility]07-29-2021 History of Present illness Narrative* John Herrera [facility] - 09/22/2020 2:32 PM EDT Episode Visit Count: 11 Therapist That Will Oversee The Plan Of Care: Camila Samson Start of Care Date: 08/02/20 Onset Date: 08/13/19 Plan of Care Certification Date: 09/05/20 Next Certification Due Date: 10/07/20 Patient Identified by Name and Date of : Yes REHABILITATION AND SPORTS THERAPY PHYSICAL THERAPY TREATMENT NOTE ASSESSMENT: Dominga Larkin demonstrated increased hip and lumbar mobility. Less hand support pool wall with Sl squat and heel raise. PLAN FOR NEXT VISIT: continue SL balance SUBJECTIVE: Patient Reason for Visit: Pt reports right leg sore from test earlier this week. Pain intermittnet when walking. No sacrum pain today. Pain: Pain Pain Level: 0 Pain Location: Sacrum Additional Pain Information : Location 2 Pain Level 2: 10 Pain Location 2: Leg - Right Description 2: Aching Frequency 2: Intermittent Detailed Pain Score: (walking) Post Treatment Pain Post Treatment Pain Level: No Change OBJECTIVE MEASURES WITH LEVEL OF FUNCTION: Patient ambulates to/from locker room without device. Patient enters /exited the pool via stairs, SBA. Patient accompanied by clinician in water throughout session, SBA unless otherwise noted TREATMENT: Aquatic Therapy: Footwear on pool deck pre-treatment: Yes, patient wearing appropriate footwear andappeared safe on pool deck Footwear on pool deck post-treatment: Yes, patient wearing appropriate footwear and appeared safe on pool deck Aquatic Therapy ([id number]): 1 1: See note below for exercises performed WATER DEPTH 3'6" - 4'0" (paddle level 5) - Giant dynamic steps forward/ retro, shoulder alt flex/ext x 2 length each - Giant dynamic side step right/left, B shoulder add/abd x 1 length - April with rows x 2 WATER DEPTH 3'9" -4'0" (light)(cuff 1) -Static stand, (2) kickboard push down x 15, r/L x 15 each -R/L trunk rotation with hands resting on kickboard, x15 each direction -B horizontal shoulder abduction, paddle #5 x 15 WATER DEPTH 3'6" (cuff 1) -R/L hamstring stretch 2 x 30 seconds each, back to pool wall -R/L hamstring curls x 15 each, 2 hand support at pool wall -Clockwise/counterclockwise 'hoola hoop', tolerable range, no hands support at pool wall, 1 x 15 each direction -SL R/L squat x 20 -hip R/L flexion/extension, abduction/adduction x 15 -LAQ R/L x 15 each -SL R/L heel raise 2 x 10 -SL balance Right/left 20 sec hold, 30 sec hold , intermittent UE support Skilled Intervention: Patient was educated in proper exercise technique and purpose for exercises. Skilled judgment was provided in selection of appropriate interventions. Skilled judgment used to assess appropriate program for balance and coordination activity. Patient education: Proper hydration following aquatic session Advised to rest as needed upon exiting pool prior to walking to locker room to re-acclimate to fullweight bearing status Patient with good understanding. Billing: Aquatic Therapy Treatment Minutes: 40 Total Treatment Time Minutes (timed and untimed codes) : 43 John Herrera PTA documented in this encounterC[facility] NoteHNO ID: [id number] Author: John Herrera PTA Service: ? Author Type: Program Officer Type: Progress Notes Filed: 09/19/2020 10:57 AM Note Text: Episode Visit Count: 10 Therapist That Will Oversee The Plan Of Care: Camila Samson Start of Care Date: 08/02/20 Onset Date: 08/13/19 Plan of Care Certification Date: 09/05/20 Next Certification Due Date: 10/07/20 Patient Identified by Name and Date of : Yes REHABILITATION AND SPORTS THERAPY PHYSICAL THERAPY TREATMENT NOTE ASSESSMENT: Dominga Larkin demonstrated no right foot cramping with SL stance, improved from last visit. Noted decreased hamstring flexibility. LE fatigue with unilateral squats. Increased SL balance. No sacrum pain during therapy. PLAN FOR NEXT VISIT: add SL balance, continue unilateral squat SUBJECTIVE: Patient Reason for Visit: Pt reports intermittent sharp pain in sacrum 2x a day. Pain: Pain Pain Level: 10 Pain Location: Sacrum Description: Sharp Frequency: Intermittent Post Treatment Pain Post Treatment Pain Level: 0 OBJECTIVE MEASURES WITH LEVEL OF FUNCTION: Patient ambulates to/from locker room without device. Patient enters?/exited the pool via stairs, SBA. Patient accompanied by clinician in water throughout session, SBA unless otherwise noted TREATMENT: Aquatic Therapy: Footwear on pool deck pre-treatment: Yes, patient wearing appropriate footwear and appeared safe on pool deck Footwear on pool deck post-treatment: Yes, patient wearing appropriate footwear and appeared safe on pool deck Aquatic Therapy ([id number]): 1 1: See note below for exercises performed ?WATER DEPTH 3'6" -?4'0" (paddle level 5) - Giant dynamic steps forward/ retro,?shoulder alt flex/ext x 2 length each - Giant dynamic side step right/left,?B shoulder add/abd x 1 length -April with rows x 2 ?? WATER DEPTH 3'9"?-4'0" (light)(cuff 1, added this date) -Static stand, (2) kickboard push down x 15, r/L x 15 each -R/L trunk rotation with hands resting on kickboard, x15 each direction? -B horizontal shoulder abduction, paddle #5 x 15 ? ??WATER DEPTH 3'6"?(cuff 1) -R/L hamstring stretch 2 x?30 seconds each, back to pool wall ? -R/L hamstring curls x?15?each, 2 hand support at pool wall -Clockwise/counterclockwise 'hoola hoop', tolerable range,?no?hands support at pool wall, 1 x 15 each direction? -SL R/L squat x?15 -hip R/L flexion/extension, abduction/adduction x 15 -LAQ R/L x 15?each -SL R/L heel raise 2 x 10 ? ??Skilled Intervention: Patient was educated in proper exercise technique and purpose for exercises. Skilled judgment was provided in selection of appropriate interventions. Skilled judgment used to assess appropriate program for balance and coordination activity. Patient education: ?Proper hydration following aquatic session Advised to rest as needed upon exiting pool prior to walking to locker room to re-acclimate to full weight bearing status Patient with good understanding. Billing: Aquatic Therapy Treatment Minutes: 38 Total Treatment Time Minutes (timed and untimed codes) : 40 [facility] History of Present illness Narrative* John Herrera [facility] - 09/19/2020 10:52 AM EDT Episode Visit Count: 10 Therapist That Will Oversee The Plan Of Care: Camila Samson Start of Care Date: 08/02/20 Onset Date: 08/13/19 Plan of Care Certification Date: 09/05/20 Next Certification Due Date: 10/07/20 Patient Identified by Name and Date of : Yes REHABILITATION AND SPORTS THERAPY PHYSICAL THERAPY TREATMENT NOTE ASSESSMENT: Dominga Larkin demonstrated no right foot cramping with SL stance, improved from last visit. Noted decreased hamstring flexibility. LE fatigue with unilateral squats. Increased SL balance. No sacrum pain during therapy. PLAN FOR NEXT VISIT: add SL balance, continue unilateral squat SUBJECTIVE: Patient Reason for Visit: Pt reports intermittent sharp pain in sacrum 2x a day. Pain: Pain Pain Level: 10 Pain Location: Sacrum Description: Sharp Frequency: Intermittent Post Treatment Pain Post Treatment Pain Level: 0 OBJECTIVE MEASURES WITH LEVEL OF FUNCTION: Patient ambulates to/from locker room without device. Patient enters /exited the pool via stairs, SBA. Patient accompanied by clinician in water throughout session, SBA unless otherwise noted TREATMENT: Aquatic Therapy: Footwear on pool deck pre-treatment: Yes, patient wearing appropriate footwear andappeared safe on pool deck Footwear on pool deck post-treatment: Yes, patient wearing appropriate footwear and appeared safe on pool deck Aquatic Therapy ([id number]): 1 1: See note below for exercises performed WATER DEPTH 3'6" - 4'0" (paddle level 5) - Giant dynamic steps forward/ retro, shoulder alt flex/ext x 2 length each - Giant dynamic side step right/left, B shoulder add/abd x 1 length -April with rows x 2 WATER DEPTH 3'9" -4'0" (light)(cuff 1, added this date) -Static stand, (2) kickboard push down x 15, r/L x 15 each -R/L trunk rotation with hands resting on kickboard, x15 each direction -B horizontal shoulder abduction, paddle #5 x 15 WATER DEPTH 3'6" (cuff 1) -R/L hamstring stretch 2 x 30 seconds each, back to pool wall -R/L hamstring curls x 15 each, 2 hand support at pool wall -Clockwise/counterclockwise 'hoola hoop', tolerable range, no hands support at pool wall, 1 x 15 each direction -SL R/L squat x 15 -hip R/L flexion/extension, abduction/adduction x 15 -LAQ R/L x 15 each -SL R/L heel raise 2 x 10 Skilled Intervention: Patient was educated in proper exercise technique and purpose for exercises. Skilled judgment was provided in selection of appropriate interventions. Skilled judgment used to assess appropriate program for balance and coordination activity. Patient education: Proper hydration following aquatic session Advised to rest as needed upon exiting pool prior to walking to locker room to re-acclimate to fullweight bearing status Patient with good understanding. Billing: Aquatic Therapy Treatment Minutes: 38 Total Treatment Time Minutes (timed and untimed codes) : 40 John Herrera PTA documented in this encounterC[facility]21 NoteHNO ID: [id number] Author: John Herrera PTA Service: ? Author Type: Program Officer Type: Progress Notes Filed: 09/08/2020 5:52 PM Note Text: Episode Visit Count: 9 Therapist That Will Oversee The Plan Of Care: Camila Samson Start of Care Date: 08/02/20 Onset Date: 08/13/19 Plan of Care Certification Date: 09/05/20 Next Certification Due Date: 10/07/20 Patient Identified by Name and Date of : Yes REHABILITATION AND SPORTS THERAPY PHYSICAL THERAPY TREATMENT NOTE ASSESSMENT: Dominga Larkin demonstrated increased endurance, posture and strength with increased repetitions. Noted decreased hamstring flexibility. Right foot cramping after single leg stance. Increased activity at home, rest breaks when needed. Discussed with patient sitting in hot tub and to be careful. PLAN FOR NEXT VISIT: add SL balance, SL squat , provide HEP SUBJECTIVE: Patient Reason for Visit: Patient reports will heart catheterization next week, will have to cancel appointment. Patient in hot tub 20 minutes prior to therapy. Came to pool on own once this week. Rode bike one this week, had to stopped to rest from fatigue. Pain: Pain Pain Level: 0 Post Treatment Pain Post Treatment Pain Level: 0 OBJECTIVE MEASURES WITH LEVEL OF FUNCTION: Patient ambulates to/from locker room without device. Patient enters?/exited the pool via stairs, SBA. Patient accompanied by clinician in water throughout session, SBA unless otherwise noted TREATMENT: Aquatic Therapy: Footwear on pool deck pre-treatment: Yes, patient wearing appropriate footwear and appeared safe on pool deck Footwear on pool deck post-treatment: Yes, patient wearing appropriate footwear and appeared safe on pool deck Aquatic Therapy (82653): 1 1: See note below for exercises performed ?WATER DEPTH 3'6" -?4'0" (paddle level 5) - Giant dynamic steps forward/ retro,?shoulder alt flex/ext x 2 length each - Giant dynamic side step right/left,?B shoulder add/abd x 2 length -April with rows x 2 ?? WATER DEPTH 3'9"?-4'0" (light) -Static stand, kickboard push down x 15, r/L x 15 each -R/L trunk rotation with hands resting on kickboard, x15 each direction? -B horizontal shoulder abduction, paddle #5 x 15 ? ??WATER DEPTH 3'6"?(cuff 1) -R/L hamstring stretch 2 x?30 seconds each, back to pool wall ? -R/L hamstring curls x?15?each, 2 hand support at pool wall -Clockwise/counterclockwise 'hoola hoop', tolerable range,?no?hands support at pool wall, 1 x 15 each direction? -B squat x?15 -hip R/L flexion/extension x 15 -LAQ R/L x 15?each ? ??Skilled Intervention: Patient was educated in proper exercise technique and purpose for exercises. Skilled judgment was provided in selection of appropriate interventions. Skilled judgment used to assess appropriate program for balance and coordination activity. Patient education: ?Proper hydration following aquatic session Advised to rest as needed upon exiting pool prior to walking to locker room to re-acclimate to full weight bearing status Patient with good understanding. Billing: Gold: [employer] ([id number]): 1:1 time: 3 units: 38-52 mins Total time / Length of visit: 40 minutes John Herrera PTAPeoples [id number] NoteHNO ID: [id number] Author: John Herrera PTA Service: ? Author Type: Program Officer Type: Progress Notes Filed: 09/05/2020 3:08 PM Note Text: Episode Visit Count: Visit count could not be calculated. Make sure you are using a visit which is associated with an episode. Therapist That Will Oversee The Plan Of Care: Camila Samson Start of Care Date: 08/02/20 Onset Date: 08/13/19 Plan of Care Certification Date: 09/05/20 Next Certification Due Date: 10/07/20 Please see Physical Therapist note dated for today for aquatic therapy visit documentation for today's visit.[facility] [id number] History of Present illness Narrative* John Herrera PTA - 09/05/2020 2:53 PM EDT Episode Visit Count: Visit count could not be calculated. Make sure you are using a visit which is associated with an episode. Therapist That Will Oversee The Plan Of Care: Camila Samson Start of Care Date: 08/02/20 Onset Date: 08/13/19 Plan of Care Certification Date: 09/05/20 Next Certification Due Date: 10/07/20 Please see Physical Therapist note dated for today for aquatic therapy visit documentation for today's visit. documented in [facility] NoteHNO ID: [id number] Author: Camila Samson, PT Service: ? Author Type: Physical Therapist Type: Progress Notes Filed: 09/05/2020 3:07 PM Note Text: Episode Visit Count: 8 Therapist That Will Oversee The Plan Of Care: Camila Samson Start of Care Date: 08/02/20 Onset Date: 08/13/19 Plan of Care Certification Date: 09/05/20 Next Certification Due Date: 10/07/20 Patient Identified by Name and Date of : Yes REHABILITATION AND SPORTS THERAPY PHYSICAL THERAPY PROGRESS REPORT Addend: added aquatic noted dated this date PLAN OF CARE UPDATE: Assessment: Dominga Larkin exhibits difficulty with posture/abdominal stabilization/flexibility and improvements in leg strength. He continues to be limited with standing and walking. He is progressing as expected towards his therapy goals as demonstrated by: pain levels, documented subjective information on progress, documented objective information regarding strength, range of motion and overall function and appointment compliance. He will benefit from continued skilled therapy requiring progression of core strengthening/stability in the aquatic environment to decrease strain on the lowerback in order to further improve patients standing and walking tolerance. See below for updated goal status. All goals remain appropriate at this time. See below for new goal for 5x sit<-->stand. Functional gains: Improved postural alignment Improved postural awareness Increased independence with HEP Increased strength Goals for Episode of Care: created on 08/02/20 through 10/07/20: Updated 09/05/20: Restore pain-free lumbar ROM to WNL for flexion and B rotation to allow for increased ease with functional activities (Not met- continues to have restricted ROM) Stand / Walk 45-60 minutes without pain/symptoms (Not met- reports continued symptoms after standing/walking for 5 minutes at a time) Maintain proper sitting posture throughout session (Progressing- sitting more upright in the chair) Knowledgeable regarding prophylaxis. (Progressing- needs to be able to get into the pool more frequently) Patient will increase strength of hip flexors and extensors to 4+/5 to allow for increase tolerance for walking/yardwork. (Progressing- remains limited for hip extension) Patient will increase flexibility of B hip flexors and hamstrings to WNL to improve mechanics and decrease pain. (Not met- continues to have a lot of tightness in the hamstrings and hip flexors) Aquatic Goal: Patient will be independent with aquatic program and transition to a community pool. (Progressing- has not been coming to pool much outside of PT sessions) Improve postural awareness in sitting/standing to decrease strain on lower back. (Progressing-more aware of posture in sitting) New goals as of 09/05/20: Patient demonstrates 5x sit<-->stand within norms for patients stated age group demonstrating increased strength and balance. Patient Goals: "Im not really sure"; rebuild mm mass in L shoulder blade Planned Interventions, Frequency, and Duration: 2x/week, 3 weeks Total Number of Visits Planned: 6 Patient to be seen for Therapeutic exercise (89636);Neuromuscular re-education (36334);Self-long-term management (70021);Aquatic PT ([id number]);Patient/Family/Caregiver Education PLAN FOR NEXT VISIT: cont with core strengthening and balance; cont 2x/week x 3 weeks with aquatic therapy Prognosis: Good Good due to: current objective clinical presentation;positive past response to therapy;good support system/ coping skills;Prognosis may be limited Prognosis may be limited by: chronic nature of impairments SUBJECTIVE: Patient Reason for Visit: Patient reports that he is feeling better. He reports that he is getting better with the aquatics. He reports that he continues to lose his balance. He reports that it has taken him awhile to get the hang of the exercises. He reports that he rode his bike around his "park" and he has not been able to do this in over a year. Had difficulty going up a hill. He reports continued leg pain. Spine History Pain is Worse Always: Standing;Walking (yardwork) Pain is Better Always: Sitting Pain: Pain Pain Level: 0 (pain at worst 10/10) Pain Location: (low back ) Frequency: Intermittent Post Treatment Pain Post Treatment Pain Level: No Change Post Treatment Pain Location: (low back) PROMIS Scales T-scores: mean of general population = 50. 5 points is clinically meaningfully difference Percentiles provide an indication of how the patient's score ranks in relation to the general population. Higher percentile rankings indicate better function/quality of life. 50th percentile is the average of the general population and indicates half of respondents had a worse score. T-scores: mean of general population = 50. 5 points is clinically meaningfully difference Percentiles provide an indication of how the patient's score ranks (more content not included)...[facility] [id number] History of Present illness Narrative * Camila Samson, PT - 09/05/2020 10:03 AM EDT Episode Visit Count: 8 Therapist That Will Oversee The Plan Of Care: Camila Samson Start of Care Date: 08/02/20 Onset Date: 08/13/19 Plan of Care Certification Date: 09/05/20 Next Certification Due Date: 10/07/20 Patient Identified by Name and Date of : Yes REHABILITATION AND SPORTS THERAPY PHYSICAL THERAPY PROGRESS REPORT PLAN OF CARE UPDATE: Assessment: Dominga Larkin exhibits difficulty with posture/abdominal stabilization/flexibility and improvements in leg strength. He continues to be limited with standing and walking. He is progressing as expected towards his therapy goals as demonstrated by: pain levels, documented subjective information on progress, documented objective information regarding strength, range of motion and overall function and appointment compliance. He will benefit from continued skilled therapy requiring progression of core strengthening/stability in the aquatic environment to decrease strain on the lowerback in order to further improve patients standing and walking tolerance. See below for updated goal status. All goals remain appropriate at this time. See below for new goal for 5x sit<-->stand. Functional gains: Improved postural alignment Improved postural awareness Increased independence with HEP Increased strength Goals for Episode of Care: created on 08/02/20 through 10/07/20: Updated 09/05/20: Restore pain-free lumbar ROM to WNL for flexion and B rotation to allow for increased ease with functional activities (Not met- continues to have restricted ROM) Stand / Walk 45-60 minutes without pain/symptoms (Not met- reports continued symptoms after standing/walking for 5 minutes at a time) Maintain proper sitting posture throughout session (Progressing- sitting more upright in the chair) Knowledgeable regarding prophylaxis. (Progressing- needs to be able to get into the pool more frequently) Patient will increase strength of hip flexors and extensors to 4+/5 to allow for increase tolerance for walking/yardwork. (Progressing- remains limited for hip extension) Patient will increase flexibility of B hip flexors and hamstrings to WNL to improve mechanics and decrease pain. (Not met- continues to have a lot of tightness in the hamstrings and hip flexors) Aquatic Goal: Patient will be independent with aquatic program and transition to a community pool. (Progressing- has not been coming to pool much outside of PT sessions) Improve postural awareness in sitting/standing to decrease strain on lower back. (Progressing-more aware of posture in sitting) New goals as of 09/05/20: Patient demonstrates 5x sit<-->stand within norms for patients stated age group demonstratingincreased strength and balance. Patient Goals: "Im not really sure"; rebuild mm mass in L shoulder blade Planned Interventions, Frequency, and Duration: 2x/week, 3 weeks Total Number of Visits Planned: 6 Patient to be seen for Therapeutic exercise ([id number]);Neuromuscular re-education (43309);Self-long-term management (78109);Aquatic PT ([id number]);Patient/Family/Caregiver Education PLAN FOR NEXT VISIT: cont with core strengthening and balance; cont 2x/week x 3 weeks with aquatic therapy Prognosis: Good Good due to: current objective clinical presentation;positive past response to therapy;good supportsystem/ coping skills;Prognosis may be limited Prognosis may be limited by: chronic nature of impairments SUBJECTIVE: Patient Reason for Visit: Patient reports that he is feeling better. He reports that heis getting better with the aquatics. He reports that he continues to lose his balance. He reports that it has taken him awhile to get the hang of the exercises. He reports that he rode his bike around his "park" and he has not been able to do this in over a year. Had difficulty going up a hill. He reports continued leg pain. Spine History Pain is Worse Always: Standing;Walking (yardwork) Pain is Better Always: Sitting Pain: Pain Pain Level: 0 (pain at worst 10/10) Pain Location: (low back ) Frequency: Intermittent Post Treatment Pain Post Treatment Pain Level: No Change Post Treatment Pain Location: (low back) PROMIS Scales T-scores: mean of general population = 50. 5 points is clinically meaningfully difference Percentiles provide an indication of how the patient's score ranks in relation to the general population. Higher percentile rankings indicate better function/quality of life. 50th percentile is the average of the general population and indicates half of respondents had a worse score. T-scores: mean of general population = 50. 5 points is clinically meaningfully difference Percentiles provide an indication of how the patient's score ranks in relation to the general population. Higher percentile rankings indicate better function/quality of life. 50th percentile is the average of the general population and indicates half of respondents had a worse score. OBJECTIVE MEASURES WITH LEVEL OF FUNCTION: Posture / Alignment Posture: Forward head;Increased thoracic kyphosis;Rounded shoulders;Decreased lumbar lordosis Sitting Posture: Decreased lumbar lordosis;Fair Spine Observations R Lumbar Spine Palpation Tenderness: No tenderness noted L Lumbar Spine Palpation Tenderness: No tenderness noted Sensation - Lumbar Sensation: (occ numbness&tingling in legs) Lumbar Spine AROM Lumbar Flexion: Minimal limitation Lumbar Extension: Normal Lumbar R Side-Bend: Normal Lumbar L Side-Bend: Normal Lumbar R Rotation: Minimal limitation Lumbar L Rotation: Minimal limitation LE Flexibility Flexibility: Hamstring Flexibility;Chente Test;Gastrocnemius Flexibility R Hamstring Flexibility: moderate tightness L Hamstring Flexibility: moderate tightness R Chente Test: + L Chente Test: + R Gastrocnemius Flexibility: mild tightness L Gastrocnemius Flexibility: mild tightness LE Strength R Hip Extension: 4-/5 R Hip Flexion (L2): 4+/5 R Hip ABduction: 4+/5 R Knee Extension (L3): 4+/5 R Knee Flexion: 4+/5 L Hip Extension: 4-/5 L Hip Flexion (L2): 4+/5 L Hip ABduction: 4+/5 L Knee Extension (L3): 4+/5 L Knee Flexion: 4+/5 Functional Strength Functional Strength: able to squat and recover with ue assistance; independent with bed mobility and transfers Gait Weight Bearing Status: FWB Gait: Independent Gait Distance (feet): 50 Gait Device: None Gait Observation: slow,steady gait pattern Stairs: ascends/descends stairs reciprocally Functional Performance Test Results 5 Times Sit to Stand Test : 14.9 sec Patient with improved postural awareness in sitting/standing. He continues to demonstrate decreased lordosis in sitting/standing. TREATMENT: Therapeutic Exercise: 1: reassessment of status Skilled Intervention: Proper technique & skills to assess ROM & strength to properly adjustplan of care. Billing: Alla: Therapeutic Exercise ([id number]): 1:1 time: 25 minutes (2 units: 23-37 mins) Total time / Length of visit: 30 minutes Camila Samson PT documented in [facility] NoteHNO ID: [id number] Author: John Herrera PTA Service: ? Author Type: Program Officer Type: Progress Notes Filed: 09/01/2020 2:36 PM Note Text: Episode Visit Count: 7 Therapist That Will Oversee The Plan Of Care: Camila Samson Start of Care Date: 08/02/20 Onset Date: 08/13/19 Plan of Care Certification Date: 08/02/20 Next Certification Due Date: 09/23/20 Patient Identified by Name and Date of : Yes REHABILITATION AND SPORTS THERAPY PHYSICAL THERAPY TREATMENT NOTE ASSESSMENT: Dominga Larkin demonstrated decreased support pool wall with dynamic mobility. Right lumbar sore with rotation. Hamstring flexibility improved. Tactile cuing to correct lumbar flexion posture with exercises. PLAN FOR NEXT VISIT: progress core strength SUBJECTIVE: Patient Reason for Visit: Patient reports right arm to elbow hurts, not sure why. No increased soreness after last visit. Patient walked around park with walking stick, sat and rest after 30 minutes then continued another 30 minutes. Pain: Pain Pain Level: 3 Pain Location: Arm - Right Description: Aching Frequency: Continuous Post Treatment Pain Post Treatment Pain Level: No Change OBJECTIVE MEASURES WITH LEVEL OF FUNCTION: Patient ambulates to/from locker room without device. ?Patient enters?/exited the pool via stairs, SBA. Patient accompanied by clinician in water throughout session, SBA unless otherwise noted TREATMENT: Aquatic Therapy: Footwear on pool deck pre-treatment: Yes, patient wearing appropriate footwear and appeared safe on pool deck Footwear on pool deck post-treatment: Yes, patient wearing appropriate footwear and appeared safe on pool deck Aquatic Therapy ([id number]): 1 1: See note below for exercises performed WATER DEPTH 3'6" - 4'0" - Giant dynamic steps forward/ retro, intermittent support on pool wall x 2 length each - Giant dynamic side step right/left,?intermittent?hand support x 2 length -April with rows paddle 3# x 2 WATER DEPTH 3'9" -4'0" (light) -Static stand, kickboard push down x 10 -R/L trunk rotation with hands resting on kickboard, x 10 each direction WATER DEPTH 3'6" (cuff 1) -R/L hamstring stretch 2 x?30 seconds each, back to pool wall ? -R/L hamstring curls x?15?each, 2 hand support at pool wall -Clockwise/counterclockwise 'hoola hoop', tolerable range, no hands support at pool wall, 1 x 10 each direction? -B squat x?15 -hip R/L abd/ ext x 10 -LAQ R/L x 15 each ? ??Skilled Intervention: Patient was educated in proper exercise technique and purpose for exercises. Skilled judgment was provided in selection of appropriate interventions. Skilled judgment used to assess appropriate program for balance and coordination activity. Patient education: ?Proper hydration following aquatic session Advised to rest as needed upon exiting pool prior to walking to locker room to re-acclimate to full weight bearing status Patient with good understanding. Billing: Alla: Aquatics ([id number]): 1:1 time: 3 units: 38-52 mins Total time / Length of visit: 40 minutes John Herrera PTAPeoples [id number] History of Present illness Narrative* John Herrera PTA - 09/01/2020 2:22 PM EDT Episode Visit Count: 7 Therapist That Will Oversee The Plan Of Care: Camila Samson Start of Care Date: 08/02/20 Onset Date: 08/13/19 Plan of Care Certification Date: 08/02/20 Next Certification Due Date: 09/23/20 Patient Identified by Name and Date of : Yes REHABILITATION AND SPORTS THERAPY PHYSICAL THERAPY TREATMENT NOTE ASSESSMENT: Dominga Larkin demonstrated decreased support pool wall with dynamic mobility. Right lumbar sore with rotation. Hamstring flexibility improved. Tactile cuing to correct lumbar flexion posture with exercises. PLAN FOR NEXT VISIT: progress core strength SUBJECTIVE: Patient Reason for Visit: Patient reports right arm to elbow hurts, not sure why. No increased soreness after last visit. Patient walked around park with walking stick, sat and rest after30 minutes then continued another 30 minutes. Pain: Pain Pain Level: 3 Pain Location: Arm - Right Description: Aching Frequency: Continuous Post Treatment Pain Post Treatment Pain Level: No Change OBJECTIVE MEASURES WITH LEVEL OF FUNCTION: Patient ambulates to/from locker room without device. Patient enters /exited the pool via stairs, SBA. Patient accompanied by clinician in water throughout session, SBA unless otherwise noted TREATMENT: Aquatic Therapy: Footwear on pool deck pre-treatment: Yes, patient wearing appropriate footwear andappeared safe on pool deck Footwear on pool deck post-treatment: Yes, patient wearing appropriate footwear and appeared safe on pool deck Aquatic Therapy ([id number]): 1 1: See note below for exercises performed WATER DEPTH 3'6" - 4'0" - Giant dynamic steps forward/ retro, intermittent support on pool wall x 2 length each - Giant dynamic side step right/left, intermittent hand support x 2 length -April with rows paddle 3# x 2 WATER DEPTH 3'9" -4'0" (light) -Static stand, kickboard push down x 10 -R/L trunk rotation with hands resting on kickboard, x 10 each direction WATER DEPTH 3'6" (cuff 1) -R/L hamstring stretch 2 x 30 seconds each, back to pool wall -R/L hamstring curls x 15 each, 2 hand support at pool wall -Clockwise/counterclockwise 'hoola hoop', tolerable range, no hands support at pool wall, 1 x 10 each direction -B squat x 15 -hip R/L abd/ ext x 10 -LAQ R/L x 15 each Skilled Intervention: Patient was educated in proper exercise technique and purpose for exercises. Skilled judgment was provided in selection of appropriate interventions. Skilled judgment used to assess appropriate program for balance and coordination activity. Patient education: Proper hydration following aquatic session Advised to rest as needed upon exiting pool prior to walking to locker room to re-acclimate to fullweight bearing status Patient with good understanding. Billing: [facility]: Aquatics ([id number]): 1:1 time: 3 units: 38-52 mins Total time / Length of visit: 40 minutes John Herrera PTA documented in this encounterC[facility]06-30-[facility]21 NoteHNO ID: [id number] Author: John Herrera PTA Service: ? Author Type: Program Officer Type: Progress Notes Filed: 08/24/2020 4:10 PM Note Text: Episode Visit Count: 6 Therapist That Will Oversee The Plan Of Care: Camila Samson Start of Care Date: 08/02/20 Onset Date: 08/13/19 Plan of Care Certification Date: 08/02/20 Next Certification Due Date: 09/23/20 Patient Identified by Name and Date of : Yes REHABILITATION AND SPORTS THERAPY PHYSICAL THERAPY TREATMENT NOTE ASSESSMENT: Dominga Lewis Fahadmarge demonstrated improved balance requiring less hand support pool wall. Increased coordination and balance performing LE/UE dynamic movents simultaneously. Added buoyancy cuff 1 to stretches and strengthening, no difficulty. PLAN FOR NEXT VISIT: continue hip,lumbar flexibility and mobility SUBJECTIVE: Patient Reason for Visit: Pt reports muscle spasms in legs. No soreness after last visit, arm feeling better. Pt reports will see heart MD soon. also needs to work on tractor. Pain: Pain Pain Level: 6 Pain Location: Sacrum Description: Sharp Frequency: Intermittent Additional Pain Information : (5/10 right neck, sore) Post Treatment Pain Post Treatment Pain Level: No Change OBJECTIVE MEASURES WITH LEVEL OF FUNCTION: Patient ambulates to/from locker room without device.?(with partner rene)? ?Patient enters?/exited the pool via stairs, SBA. Patient accompanied by clinician in water throughout session, SBA unless otherwise noted. TREATMENT: Aquatic Therapy: Footwear on pool deck pre-treatment: Yes, patient wearing appropriate footwear and appeared safe on pool deck Footwear on pool deck post-treatment: Yes, patient wearing appropriate footwear and appeared safe on pool deck Aquatic Therapy ([id number]): 1 1: See note below for exercises performed WATER DEPTH 3'6" - 3'0"?(pool by water slide) - Giant dynamic steps forward/ retro, intermittent support on pool wall x 2 length each - Giant dynamic side step right/left,?intermittent?hand support x 2 length -?dynamic march?x3 WATER DEPTH 3'6" - 3'0"?(pool by water slide)(cuff 1, added this date) SBA -dynamic step forward x 2 -April with rows paddle 3# x 1 ? WATER DEPTH 3'6" (cuuf 1, added this date) -R/L hamstring stretch 2 x?30 seconds each, back to pool wall ? -R/L hamstring curls x?15?each, 2 hand support at pool wall -Clockwise/counterclockwise 'hoola hoop', tolerable range, no hands support at pool wall, 1 x 10 each direction? -B squat x 15 -hip R/L abd/ ext x 10 -LAQ R/L x 10 each ?Skilled Intervention: Patient was educated in proper exercise technique and purpose for exercises. Skilled judgment was provided in selection of appropriate interventions. Skilled judgment used to assess appropriate program for balance and coordination activity. Patient education: ?Proper hydration following aquatic session Expectation of fatigue/discomfort with exercise progressions and normal response Goal to gradually decrease water depth to tolerance in preparation for transition to land based physical therapy and daily living Advised to rest as needed upon exiting pool prior to walking to locker room to re-acclimate to full weight bearing status Patient with good understanding. Billing: All[facility]: Aquatics ([id number]): 1:1 time: 3 units: 38-52 mins Total time / Length of visit: 40 minutes John Herrera PTAPeoples [id number] NoteHNO ID: [id number] Author: John Herrera PTA Service: ? Author Type: Program Officer Type: Progress Notes Filed: 08/22/2020 10:47 AM Note Text: Episode Visit Count: 5 Therapist That Will Oversee The Plan Of Care: Camila Samson Start of Care Date: 08/02/20 Onset Date: 08/13/19 Plan of Care Certification Date: 08/02/20 Next Certification Due Date: 09/23/20 Patient Identified by Name and Date of : Yes REHABILITATION AND SPORTS THERAPY PHYSICAL THERAPY TREATMENT NOTE ASSESSMENT: Dominga Lewis Fahadmarge demonstrated cuing to correct anterior rotated shoulders and lumbar flexion posture performing exercises. Progressed postural strength adding UE strength with paddle resulting in neck soreness. PLAN FOR NEXT VISIT: continue postural strength SUBJECTIVE: Patient Reason for Visit: Pt reports still gets intermittent sacrum and back pain standing from seated position. Sore after last visit for a day. Arms sore from mowing grass, turning wheel. Pain: Pain Pain Level: 6 Pain Location: Sacrum Description: Sharp Frequency: Intermittent Post Treatment Pain Post Treatment Pain Level: 8 Post Treatment Pain Location: Neck Post Treatment Pain Description: Sore OBJECTIVE MEASURES WITH LEVEL OF FUNCTION: Patient ambulates to/from locker room without device.?(with partner rene)? ?Patient enters?/exited the pool via stairs, SBA. Patient accompanied by clinician in water throughout session, SBA unless otherwise noted. TREATMENT: Aquatic Therapy: Footwear on pool deck pre-treatment: Yes, patient wearing appropriate footwear and appeared safe on pool deck Footwear on pool deck post-treatment: Yes, patient wearing appropriate footwear and appeared safe on pool deck Aquatic Therapy ([id number]): 1 1: See note below for exercises performed WATER DEPTH 3'6" - 4'0"?(SBA) - Giant dynamic steps forward/ retro, hand support on pool wall x 2 length each - Giant dynamic side step right/left,?2?hand support x 2 length -?dynamic march?with rows paddle #5 x2 ? WATER DEPTH 3'9" -R/L hamstring stretch 2 x?30 seconds each, back to pool wall ? -R/L hamstring curls x?15?each, 2 hand support at pool wall -Clockwise/counterclockwise 'hoola hoop', tolerable range, with 2 hands support at pool wall, 1 x 10 each direction? -B squat x 10 WATER DEPTH 4'0" -static stand, push downs, center, right/left with noodle x 15 each -R/L alternating shoulder flexion/extension x 10, level 5 paddle -R/L alternating shoulder adduction/abduction x 10, level 5 paddle -R/L alternating shoulder horizontal adduction/abduction x 10, level 5 paddle ? ??Skilled Intervention: Patient was educated in proper exercise technique and purpose for exercises. Skilled judgment was provided in selection of appropriate interventions. Skilled judgment used to assess appropriate program for balance and coordination activity. Patient education: ?Proper hydration following aquatic session Expectation of fatigue/discomfort with exercise progressions and normal response Goal to gradually decrease water depth to tolerance in preparation for transition to land based physical therapy and daily living Advised to rest as needed upon exiting pool prior to walking to locker room to re-acclimate to full weight bearing status Patient with good understanding. Billing: Gold: Aquatics ([id number]): 1:1 time: 3 units: 38-52 mins Total time / Length of visit: 40 minutes John Herrera [facility]06-28-2021 History of Present illness Narrative* John Herrera, [facility] - 08/22/2020 10:29 AM EDT Episode Visit Count: 5 Therapist That Will Oversee The Plan Of Care: Camila Samson Start of Care Date: 08/02/20 Onset Date: 08/13/19 Plan of Care Certification Date: 08/02/20 Next Certification Due Date: 09/23/20 Patient Identified by Name and Date of : Yes REHABILITATION AND SPORTS THERAPY PHYSICAL THERAPY TREATMENT NOTE ASSESSMENT: Dominga Larkin demonstrated cuing to correct anterior rotated shoulders and lumbar flexion posture performing exercises. Progressed postural strength adding UE strength with paddle resulting in neck soreness. PLAN FOR NEXT VISIT: continue postural strength SUBJECTIVE: Patient Reason for Visit: Pt reports still gets intermittent sacrum and back pain standing from seated position. Sore after last visit for a day. Arms sore from mowing grass, turning wheel. Pain: Pain Pain Level: 6 Pain Location: Sacrum Description: Sharp Frequency: Intermittent Post Treatment Pain Post Treatment Pain Level: 8 Post Treatment Pain Location: Neck Post Treatment Pain Description: Sore OBJECTIVE MEASURES WITH LEVEL OF FUNCTION: Patient ambulates to/from locker room without device. (with partner rene) Patient enters /exited the pool via stairs, SBA. Patient accompanied by clinician in water throughout session, SBA unless otherwise noted. TREATMENT: Aquatic Therapy: Footwear on pool deck pre-treatment: Yes, patient wearing appropriate footwear andappeared safe on pool deck Footwear on pool deck post-treatment: Yes, patient wearing appropriate footwear and appeared safe on pool deck Aquatic Therapy ([id number]): 1 1: See note below for exercises performed WATER DEPTH 3'6" - 4'0" (SBA) - Giant dynamic steps forward/ retro, hand support on pool wall x 2 length each - Giant dynamic side step right/left, 2 hand support x 2 length - dynamic march with rows paddle #5 x2 WATER DEPTH 3'9" -R/L hamstring stretch 2 x 30 seconds each, back to pool wall -R/L hamstring curls x 15 each, 2 hand support at pool wall -Clockwise/counterclockwise 'hoola hoop', tolerable range, with 2 hands support at pool wall, 1 x 10 each direction -B squat x 10 WATER DEPTH 4'0" -static stand, push downs, center, right/left with noodle x 15 each -R/L alternating shoulder flexion/extension x 10, level 5 paddle -R/L alternating shoulder adduction/abduction x 10, level 5 paddle -R/L alternating shoulder horizontal adduction/abduction x 10, level 5 paddle Skilled Intervention: Patient was educated in proper exercise technique and purpose for exercises. Skilled judgment was provided in selection of appropriate interventions. Skilled judgment used to assess appropriate program for balance and coordination activity. Patient education: Proper hydration following aquatic session Expectation of fatigue/discomfort with exercise progressions and normal response Goal to gradually decrease water depth to tolerance in preparation for transition to land based physical therapy and daily living Advised to rest as needed upon exiting pool prior to walking to locker room to re-acclimate to fullweight bearing status Patient with good understanding. Billing: Alla: Aquatics ([id number]): 1:1 time: 3 units: 38-52 mins Total time / Length of visit: 40 minutes [facility] Herrera PTA [facility] NoteHNO ID: [id number] Author: John Herrera PTA Service: ? Author Type: Program Officer Type: Progress Notes Filed: 08/18/2020 6:58 PM Note Text: Episode Visit Count: 4 Therapist That Will Oversee The Plan Of Care: Camila Samson Start of Care Date: 08/02/20 Onset Date: 08/13/19 Plan of Care Certification Date: 08/02/20 Next Certification Due Date: 09/23/20 Patient Identified by Name and Date of : Yes REHABILITATION AND SPORTS THERAPY PHYSICAL THERAPY TREATMENT NOTE ASSESSMENT: Dominga Larkin demonstrated improved hamstring flexibility. Increased back pain performing single leg stance. Decreased balance, hand support on pool wall. Increased activity without increased pain at end of therapy. PLAN FOR NEXT VISIT: continue hip,lumbar flexibility and mobility SUBJECTIVE: Patient Reason for Visit: Pt reports less palvic pain after last visit. sore legs and sacrum today. Pt tired up early for MD appointment this morning. Pain: Pain Pain Level: 6 Pain Location: Sacrum Description: Sharp Frequency: Intermittent Post Treatment Pain Post Treatment Pain Level: 4 Post Treatment Pain Location: Back Post Treatment Pain Description: Sore OBJECTIVE MEASURES WITH LEVEL OF FUNCTION: Patient ambulates to/from locker room without device.?(with partner rene)? ?Patient enters /exited the pool via stairs, SBA. Patient accompanied by clinician in water throughout session, SBA unless otherwise noted. TREATMENT: Aquatic Therapy: Footwear on pool deck pre-treatment: Yes, patient wearing appropriate footwear and appeared safe on pool deck Footwear on pool deck post-treatment: Yes, patient wearing appropriate footwear and appeared safe on pool deck Aquatic Therapy ([id number]): 1 1: See note below for exercises performed WATER DEPTH 3'6" - 4'0"?(SBA) - Giant dynamic steps forward/ retro, hand support on pool wall x 2 length each - Giant dynamic side step right/left,?2?hand support x 2 length -?dynamic april x2, one hand support? ? WATER DEPTH 3'9" -R/L hamstring stretch 2 x 30 seconds each, back to pool wall ? -R/L hamstring curls x 15 each, 2 hand support at pool wall -R/L LAQ's x7 each with back to pool wall, cues for ankle DF on end range extension -R/L SLR flex/extend, abd/add x10?each, 1-2 hand support at pool wall -Clockwise/counterclockwise 'hoola hoop', tolerable range, with 2 hands support at pool wall, 1 x 10 each direction -static stand, rows with noodle x 15 -static stand, push downs, center, right/left with noodle x 15 each -B squat x 7 Skilled Intervention: Patient was educated in proper exercise technique and purpose for exercises. Skilled judgment was provided in selection of appropriate interventions. Skilled judgment used to assess appropriate program for balance and coordination activity. Patient education: ?Proper hydration following aquatic session Expectation of fatigue/discomfort with exercise progressions and normal response Goal to gradually decrease water depth to tolerance in preparation for transition to land based physical therapy and daily living Advised to rest as needed upon exiting pool prior to walking to locker room to re-acclimate to full weight bearing status Patient with good understanding. Billing: Gold: Aquatics ([id number]): 1:1 time: 3 units: 38-52 mins Total time / Length of visit: 40 minutes John Herrera [facility]06-24-2021 History of Present illness Narrative* John Herrera, [facility] 08/18/2020 6:51 PM EDT Episode Visit Count: 4 Therapist That Will Oversee The Plan Of Care: Camila Samson Start of Care Date: 08/02/20 Onset Date: 08/13/19 Plan of Care Certification Date: 08/02/20 Next Certification Due Date: 09/23/20 Patient Identified by Name and Date of : Yes REHABILITATION AND SPORTS THERAPY PHYSICAL THERAPY TREATMENT NOTE ASSESSMENT: Dominga Lewis Trae demonstrated improved hamstring flexibility. Increased back pain performing single leg stance. Decreased balance, hand support on pool wall. Increased activity without increased pain at end of therapy. PLAN FOR NEXT VISIT: continue hip,lumbar flexibility and mobility SUBJECTIVE: Patient Reason for Visit: Pt reports less palvic pain after last visit. sore legs and sacrum today. Pt tired up early for MD appointment this morning. Pain: Pain Pain Level: 6 Pain Location: Sacrum Description: Sharp Frequency: Intermittent Post Treatment Pain Post Treatment Pain Level: 4 Post Treatment Pain Location: Back Post Treatment Pain Description: Sore OBJECTIVE MEASURES WITH LEVEL OF FUNCTION: Patient ambulates to/from locker room without device. (with partner rene) Patient enters /exited the pool via stairs, SBA. Patient accompanied by clinician in water throughout session, SBA unless otherwise noted. TREATMENT: Aquatic Therapy: Footwear on pool deck pre-treatment: Yes, patient wearing appropriate footwear andappeared safe on pool deck Footwear on pool deck post-treatment: Yes, patient wearing appropriate footwear and appeared safe on pool deck Aquatic Therapy ([id number]): 1 1: See note below for exercises performed WATER DEPTH 3'6" - 4'0" (SBA) - Giant dynamic steps forward/ retro, hand support on pool wall x 2 length each - Giant dynamic side step right/left, 2 hand support x 2 length - dynamic april x2, one hand support WATER DEPTH 3'9" -R/L hamstring stretch 2 x 30 seconds each, back to pool wall -R/L hamstring curls x 15 each, 2 hand support at pool wall -R/L LAQ's x7 each with back to pool wall, cues for ankle DF on end range extension -R/L SLR flex/extend, abd/add x10 each, 1-2 hand support at pool wall -Clockwise/counterclockwise 'hoola hoop', tolerable range, with 2 hands support at pool wall, 1 x 10 each direction -static stand, rows with noodle x 15 -static stand, push downs, center, right/left with noodle x 15 each -B squat x 7 Skilled Intervention: Patient was educated in proper exercise technique and purpose for exercises. Skilled judgment was provided in selection of appropriate interventions. Skilled judgment used to assess appropriate program for balance and coordination activity. Patient education: Proper hydration following aquatic session Expectation of fatigue/discomfort with exercise progressions and normal response Goal to gradually decrease water depth to tolerance in preparation for transition to land based physical therapy and daily living Advised to rest as needed upon exiting pool prior to walking to locker room to re-acclimate to fullweight bearing status Patient with good understanding. Billing: Gold: Aquatics ([id number]): 1:1 time: 3 units: 38-52 mins Total time / Length of visit: 40 minutes John Herrera PTA documented [facility] NoteHNO ID: [id number] Author: John Herrera PTA Service: ? Author Type: Program Officer Type: Progress Notes Filed: 08/15/2020 1:20 PM Note Text: Episode Visit Count: 3 Therapist That Will Oversee The Plan Of Care: Camila Samson Start of Care Date: 08/02/20 Onset Date: 08/13/19 Plan of Care Certification Date: 08/02/20 Next Certification Due Date: 09/23/20 Patient Identified by Name and Date of : Yes REHABILITATION AND SPORTS THERAPY PHYSICAL THERAPY TREATMENT NOTE ASSESSMENT: Dominga Larkin demonstrated improved balance and hip mobility. Decreased activity per patients subjective report of increased pelvic pain after last visit. Tactile cuing to correct anterior rotated shoulder and facilitate upright posture. PLAN FOR NEXT VISIT: monitor soreness, progress exercise reps SUBJECTIVE: Patient Reason for Visit: Patient reports groin, sacrum sore after last visit, did too much. Rene, partner confirms. Notes decreased balance, no falls. Pain: Pain Pain Level: 6 Pain Location: Sacrum Description: Sharp Frequency: Intermittent Additional Pain Information : (no numbness LE) Post Treatment Pain Post Treatment Pain Level: No Change OBJECTIVE MEASURES WITH LEVEL OF FUNCTION: Patient ambulates to/from locker room without device. (with partner rene) ?Patient enters pool sitting on edge of pool /exited the pool via stairs, SBA. Patient accompanied by clinician in water throughout session, SBA unless otherwise noted. TREATMENT: Aquatic Therapy: Footwear on pool deck pre-treatment: Yes, patient wearing appropriate footwear and appeared safe on pool deck Footwear on pool deck post-treatment: Yes, patient wearing appropriate footwear and appeared safe on pool deck Aquatic Therapy ([id number]): 1 1: See note below for exercises performed WATER DEPTH 3'6" - 4'0" (SBA) - Giant dynamic steps forward/ retro, hand support on pool wall x 2 length each - Giant dynamic side step right/left, 2 hand support x 2 length - dynamic april x2, one hand support ? WATER DEPTH 3'9" -R/L hamstring stretch 2 x 30 seconds each, back to pool wall -R/L hamstring curls x 10 each, 2 hand support at pool wall -R/L LAQ's x7 each with back to pool wall, cues for ankle DF on end range extension -R/L SLR flex/extend, abd/add x10 each, 1-2 hand support at pool wall -Clockwise/counterclockwise 'hoola hoop', tolerable range, with 2 hands support at pool wall, 1 x 10 each direction -static stand, rows with noodle x 10 -static stand, push downs with noodle x 10 Skilled Intervention: Patient was educated in proper exercise technique and purpose for exercises. Skilled judgment was provided in selection of appropriate interventions. Skilled judgment used to assess appropriate program for balance and coordination activity. Patient education: Proper hydration following aquatic session Expectation of fatigue/discomfort with exercise progressions and normal response Goal to gradually decrease water depth to tolerance in preparation for transition to land based physical therapy and daily living Advised to rest as needed upon exiting pool prior to walking to locker room to re-acclimate to full weight bearing status Patient with good understanding. Billing: Gold: Aquatics ([id number]): 1:1 time: 3 units: 38-52 mins Total time / Length of visit: 40 minutes [id number] NoteHNO ID: [id number] Author: John Herrera PTA Service: ? Author Type: Program Officer Type: Progress Notes Filed: 08/11/2020 7:28 PM Note Text: Episode Visit Count: 2 Therapist That Will Oversee The Plan Of Care: Camila Samson Start of Care Date: 08/02/20 Onset Date: 08/13/19 Plan of Care Certification Date: 08/02/20 Next Certification Due Date: 09/23/20 Patient Identified by Name and Date of : Yes REHABILITATION AND SPORTS THERAPY PHYSICAL THERAPY TREATMENT NOTE ASSESSMENT: Dominga Larkin demonstrated decreased balance, SBA and hand support pool wall. Noted decreased hamstring flexibility. Excessive lumbar flex and big movement patterns. No LE numbness during therapy. Low back pain in deep water. PLAN FOR NEXT VISIT: continue hip flexibility, core and LE strength SUBJECTIVE: Patient Reason for Visit: PT reports both legs go numb when walking too long, shopping. No falls Pain: Pain Pain Level: 0 Pain Location: Sacrum Description: Sore Frequency: Intermittent Detailed Pain Score: (B LE numbness with walking) Post Treatment Pain Post Treatment Pain Level: 0 OBJECTIVE MEASURES WITH LEVEL OF FUNCTION: Patient ambulates to/from locker room without device. (with partner rene) Patient enters/exited the pool via stairs, SBA. Patient accompanied by clinician in water throughout session, SBA unless otherwise noted. TREATMENT: Aquatic Therapy: Footwear on pool deck pre-treatment: Yes, patient wearing appropriate footwear and appeared safe on pool deck Footwear on pool deck post-treatment: Yes, patient wearing appropriate footwear and appeared safe on pool deck Aquatic Therapy ([id number]): 1 1: See note below for exercises performed WATER DEPTH 3'6" - 4'0" (SBA) - Giant dynamic steps forward/ retro, hand support on pool wall x 2 length each - Giant dynamic side step right/left, 2 hand support x 2 length - dynamic march, one hand support WATER DEPTH 3'9" -R/L gastroc stretch 2 x 20 seconds each, 2 hand support at pool wall -R/L hamstring stretch 2 x 20 seconds each, back to pool wall -R/L hamstring curls x 10 each, 2 hand support at pool wall -R/L LAQ's x10 each with back to pool wall, cues for ankle DF on end range extension -Bilateral heel and toe raises x10 each, 2 support at pool wall -R/L SLR flex/extend, abd/add x10 each, 1-2 hand support at pool wall -Clockwise/counterclockwise 'hoola hoop', tolerable range, with 2 hands support at pool wall, 1 x 10 each direction Water Depth 5'0" (noodle under arms, SBA/CGA): Lower extremity exercises performed mindful of dynamic lumber stabilization, posture and forward visual gaze: -R/L alternating hip Flexion/extension 'flutter kick' x30 seconds each, 2 hand support at pool wall -Bilateral hip abduction/adduction 'jumping elida legs' x30 seconds each, 2 support at pool wall -Bilateral bike (forward) x30 seconds each, 2 hand support at pool wall -Bilateral knees to chest x 30 seconds, 2 hand support at pool wall -Dangling float for decompression x 3 minutes spread before, in between and after above deep water exercises. Cues/education for dynamic lumbar stabilization Skilled Intervention: Patient was educated in proper exercise technique and purpose for exercises. Skilled judgment was provided in selection of appropriate interventions. Skilled judgment used to assess appropriate program for balance and coordination activity. Patient education: Proper hydration following aquatic session Expectation of fatigue/discomfort with exercise progressions and normal response Goal to gradually decrease water depth to tolerance in preparation for transition to land based physical therapy and daily living Advised to rest as needed upon exiting pool prior to walking to locker room to re-acclimate to full weight bearing status Patient with good understanding. Billing: Alla: Aquatics ([id number]): 1:1 time: 3 units: 38-52 mins Total time / Length of visit: 40 minutes John Sharon [facility]06-17-2021 History of Present illness Narrative* John Herrera, [employer] - 08/11/2020 7:11 PM EDT Episode Visit Count: 2 Therapist That Will Oversee The Plan Of Care: Camila Samson Start of Care Date: 08/02/20 Onset Date: 08/13/19 Plan of Care Certification Date: 08/02/20 Next Certification Due Date: 09/23/20 Patient Identified by Name and Date of : Yes REHABILITATION AND SPORTS THERAPY PHYSICAL THERAPY TREATMENT NOTE ASSESSMENT: Dominga Larkin demonstrated decreased balance, SBA and hand support pool wall. Noted decreased hamstring flexibility. Excessive lumbar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 0702 11/09/18 1254 11/09/18 1633 11/09/18 2223 11/10/18 0806 11/10/18 1149 11/10/18 1701 11/11/18 0819 POCGLU 248* 257* 203* 242* 262* 243* 209* 295* HgbA1C: No results for input(s): LABA1C in the last 72 hours. Hepatic: No results for input(s): ALKPHOS, ALT, AST, PROT, BILITOT, BILIDIR, LABALBU in the last 72 hours. Lipids: No results for input(s): CHOL, TRIG, HDL, LDLCALC in the last 72 hours. Invalid input(s): LDL Physical Exam: Vitals: BP 115/82 Pulse 79 Temp 97.8 F (36.6 C) Resp 18 Ht 5' 8" (1.727 m) Wt 218 lb 4.1 oz (99 kg) SpO2 98% BMI 33.19 kg/m 24 hour intake/output: Intake/Output Summary (Last 24 hours) at 11/11/2018 1201 Last data filed at 11/11/2018 0900 Gross per 24 hour Intake 200 ml Output Net 200 ml Physical Exam Constitutional: He is oriented to person, place, and time. He appears well- developed and well-nourished. No distress. HENT: Head: Normocephalic. Mouth/Throat: Oropharynx is clear and moist. Eyes: Conjunctivae are normal. Neck: Normal range of motion. No thyromegaly present. Cardiovascular: Normal heart sounds and intact distal pulses. An irregularly irregular rhythm present. Tachycardia present. Sternal incision clean and dry Pulmonary/Chest: Effort normal and breath sounds normal. No respiratory distress. He has no wheezes. Abdominal: Soft. Bowel sounds are normal. He exhibits no distension. There is no tenderness. Musculoskeletal: Normal range of motion. He exhibits no edema. Lymphadenopathy: He has no cervical adenopathy. Neurological: He is alert and oriented to person, place, and time. Skin: Skin is warm and dry. Psychiatric: He has a normal mood and affect. His behavior is normal. His speech is rapid and/or pressured and tangential. Assessment: Uncontrolled DM2 with mcfp use of insulin Stress hyperglycemia s/p CABG x 3 Plan: Continue Lantus 12 units daily Increase Humalog to 7 units plus low dose SS TID with meals. POCT ac and hs Carb controlled diet Meds to beds for d/c medication needs Will monitor. Home going Plan: Pt would need insulin Basal/Bolus regimen at d/c. Doses TBD. Cost is a concern, so he may need N/R depending on coverage. Discussed with patient possible discharge plan. Time spent with patient 35 minutes with more than 50% of that time in direct face to face counseling as documented in note. I have reviewed previous records and previous workup. Associated attestation - Mayra Harley MD - 11/11/2018 4:52 PM EDT I performed a history and physical examination of the patient and discussed the management with theNP/resident. I reviewed the patient's chart including pertinent history, medications, labs, radiology, and other reports. I reviewed the HOSPITAL AIDE/resident's note and agree with the documented findings and plan of care (with summary/modifications noted if any). Pt eating well. BG are higher >200. I discussed overall plan with his insulin regimen. Pt had a lot of questions and concerns. Addressed these today. Records reviewed. PE: BP 115/82 Pulse 79 Temp 97.8 F (36.6 C) Resp 18 Ht 5' 8" (1.727 m) Wt 218 lb 4.1 oz (99 kg) SpO2 94% BMI 33.19 kg/m awake, alert, not in distress; irregular rhythm, chest incision intact, good pulses, clear breath sounds, abdomen soft, non-tender, + mild edema, no focal deficits, tangential. Dx: Type 2 DM, with complications, on long-term insulin. CAD s/p CABG. Plan: - will increase insulin doses to Lantus 16 and Humalog 7 units TID with meals - change Humalog medium dose sliding scale insulin 3 times a day with meals - monitor blood glucose QAC and HS - carb control diet - counseled patient regarding DM management - discussed insulin regimen - discussed complications of uncontrolled DM - management of hypoglycemia per protocol - discussed importance of compliance - checked with [employer] regarding cost of insulin: Basaglar and Humalog pens would be $47 per month each - pt states that he still has both Novolog and Humalog pens at home - he can afford Basaglar pens Anticipated homegoing regimen: Basaglar pen QAM and Humalog pen Pt will FU with Endo on discharge. Anticipated homegoing regimen: Basaglar/Humalog pens with current doses Time spent with patient over 51% total time 15 minutes which includes review of records, counseling, management, and coordination of care as documented in note. * Seth Cruz, LALY - INFRASTRUCTURE CONSULTANT - 11/11/2018 8:40 AM EDT Cardiothoracic Surgery Progress Note 11/11/2018 Subjective: Admit Date: 11/06/2018 Interval History: S/P CABG x 3 on 11/06/18 POD#5-NSR with BBB irregular. No issues overnight Subjective: Up in room and in hallway. No complaints. States having surgery today at 12noon. Objective: Vitals: BP 115/82 Pulse 79 Temp 97.8 F (36.6 C) Resp 18 Ht 5' 8" (1.727 m) Wt 218 lb 4.1 oz (99 kg) SpO2 98% BMI 33.19 kg/m I/O: Weights: Patient Vitals for the past 96 hrs (Last 3 readings): Weight 11/10/18 0430 218 lb 4.1 oz (99 kg) 11/09/18 0700 203 lb 11.3 oz (92.4 kg) Labs: BMP: Recent Labs 11/09/18 0455 11/10/18 0125 11/11/18 0029 NA 134* 136 135 K 3.8 3.7 4.1 CL 101 101 99 CO2 28 27 28 BUN 23* 18 20 CREATININE 0.98 0.89 1.01 GLUCOSE 199* 190* 204* . CBC: Recent Labs 11/10/18 0125 11/11/18 0029 WBC 6.8 6.3 HGB 12.1* 11.2* PLT 130* 134* Hepatic: No results for input(s): AST, ALT, ALB, BILITOT, ALKPHOS in the last 72 hours. INR: Lab Results Component Value Date PROTIME 11.8 11/06/2018 INR 1.1 11/06/2018 Films: CXR portable: Reviewed Physical Exam: Physical Exam Constitutional: He is oriented to person, place, and time. He appears well- developed and well-nourished. No distress. HENT: Head: Normocephalic and atraumatic. Eyes: Pupils are equal, round, and reactive to light. Neck: Normal range of motion. Neck supple. No JVD present. Cardiovascular: Normal rate, S1 normal, S2 normal, normal heart sounds and intact distal pulses. Anirregular rhythm present. Exam reveals no gallop and no friction rub. No murmur heard. Pulses: Dorsalis pedis pulses are 2+ on the right side, and 2+ on the left side. Pulmonary/Chest: Effort normal and breath sounds normal. No stridor. No respiratory distress. Abdominal: Soft. Bowel sounds are normal. He exhibits no distension. There is no tenderness. Musculoskeletal: Normal range of motion. He exhibits no edema or tenderness. Neurological: He is alert and oriented to person, place, and time. Skin: Skin is warm and dry. He is not diaphoretic. Mid sternal incision intact with no signs of infection L-Leg incisions intact with no signs of infection Epicardial wires capped. Psychiatric: He has a normal mood and affect. His behavior is normal. Judgment and thought content normal. Medications: Scheduled Meds: carvedilol 6.25 mg Oral BID WC insulin glargine 12 Units Subcutaneous QAM insulin lispro 4 Units Subcutaneous TID WC pantoprazole 40 mg Oral QAM AC insulin lispro 0-6 Units Subcutaneous TID WC aspirin 325 mg Oral Daily ipratropium-albuterol 1 ampule Inhalation BID sodium chloride flush 10 mL Intravenous 2 times per day sennosides-docusate sodium 1 tablet Oral BID polyethylene glycol 17 g Oral Daily atorvastatin 80 mg Oral Nightly Continuous Infusions: Home Meds: Prior to Admission medications Medication Sig Start Date End Date Taking? Authorizing Provider Insulin Aspart (NOVOLOG FLEXPEN SC) Inject into the skin 4 times daily (before meals and nightly) SSI Yes Historical Provider, amLODIPine (NORVASC) 5 MG tablet Take 5 mg by mouth daily Yes Historical Provider, Cholecalciferol (D3-50 PO) Take by mouth daily Yes Historical Provider, amiodarone (CORDARONE) 200 MG tablet Take 200 mg by mouth daily Yes Historical Provider, losartan (COZAAR) 25 MG tablet Take 25 mg by mouth daily Yes Historical Provider, atorvastatin (LIPITOR) 80 MG tablet TAKE 1 TABLET EVERY DAY Patient taking differently: nightly 08/11/18 Yes Rahul Virgen MD glipiZIDE (GLUCOTROL) 5 MG tablet Take 5 mg by mouth daily 05/23/18 Yes Historical Provider, carvedilol (COREG) 3.125 MG tablet Take 3.125 mg by mouth 2 times daily (with meals) Yes HistoricalProviMD quynh chlorthalidone (HYGROTON) 25 MG tablet TAKE 1 TABLET BY MOUTH EVERY DAY 12/18/17 Yes Rahul Virgen MD lansoprazole (PREVACID) 15 MG delayed release capsule TAKE 1 CAPSULE BY MOUTH DAILY 05/20/17 Yes Lexie Tariq APRN - DIRECTOR MOTION PICTURE aspirin 81 MG tablet Take 81 mg by mouth daily Yes Historical Provider, Psyllium 500 MG CAPS Take by mouth daily Yes Historical Provider, Lactobacillus (ACIDOPHILUS PO) Take by mouth Yes Historical Provider, chlorhexidine (PERIDEX) 0.12 % solution Swish and spit 15mL the night prior to surgery 11/02/18 Alina Mcclendon APRN - INFRASTRUCTURE CONSULTANT docusate sodium (COLACE, DULCOLAX) 100 MG CAPS Take 100 mg by mouth daily 05/16/18 Matt Anthony MD nitroGLYCERIN (NITROSTAT) 0.[address] 1 tablet under the tongue every 5 minutes as needed for Chest pain 03/27/16 Rahul Virgen MD Diet: Dietary Nutrition Supplements: Other Oral Supplement (see comment) DIET CARDIAC; Carb Control: 4 carb choices (60 gms)/meal Problem List: Principal Problem: S/P CABG x 3 Active Problems: Uncontrolled type 2 diabetes mellitus with complication (HCC) CAD in bois forte artery Resolved Problems: * No resolved hospital problems. * Assessment and Plan: 1. CAD: Status post on CABGx3 (JUÁREZ-LAD, Ao-OM1 w/RSVG, Ao-RCA-PDA w/ RSVG, L- EVH) on 11/06/18 -EF: Normal systolic function on DANIEL -Core Medication: [x]ASA [x]BB [x] Statin [] ACEi/ARB-off home losartan -Anticoagulation: n/a -Invasive Lines:Central Line: Day #5- IJ introducer-discontinue today 2. Resp Insufficiency (normal post op course): on RA-98%. CXR: Reviewed by Dr. Mckeon during rounds.Continue C&DB, Enc use of IS. 3. Blood loss Anemia: Hgb:11.2 Stable. No s/s bleeding. Continue to monitor CBC 4. Consumptive Thrombocytopenia: Platelets:134 slowly trending up. No s/s bleeding. Continue to monitor labs 5. AFib vs ST: Remains NSR 70-80's with BBB, occasional PAC. On BB 6. Hx Hypertension: SBP 90-120's. Controlled on coreg 6.25 mg BID. Off home losartan 7. 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 DM-II/Stress Hyperglycemia: Insulin per endocrine 9. Post op pain: Continue prn's-if needed. 10. GI/DVT prophylaxis: PPI/SCD/Teds-ambulating frequently 11. Social issues: Pt lives with his who is having surgery today with tentative discharge on . He doesn't have anyone to stay with him until she discharged. I discussed with Dr. Mckeon yesterday and he is okay with pt staying. 12. Disposition: Continue progressive care in [facility]- plan discharge to home in a few days if remains stable. Blood Conservation Initiative Log: -none noted to day * Neema Sims APRN - CNS - 11/10/2018 12:45 PM EDT ENDOCRINOLOGY PROGRESS NOTE Patient: Dominga Larkin Unit/Bed:[id number] Date of : 1950 Admit date: 11/06/2018 Patient Seen,Chart, Consults notes, Labs, Radiology studies reviewed. Subjective: The patient is being followed for: DM2 with stress hyperglycemia S/p CABG x 3 11/06/18 All other ROSnegative except noted in HPI. Past, Family, Social History unchanged from admission. HPI: Patient admitted for scheduled CABG Patient takes glipizide BID (unsure of dose) and Novolog SS 4 times a day Patient's Hgba1c was 6.6% 05/06/18 but 10/29/18 up to 9.9% Patient has erratic schedule for meals--1-3 a day Patient reports BG at home 200-400 PCP manages diabetes Takes Novolog and glipizide but not always before meals, when he remembers or if out and about might not have supplies with him so when he can Cost of insulin is an issue Today: Patient sitting up in chair, girlfriend at the bedside Patient states pain is manageable Patient has been up walking in the halls Patient denies VCP, N/V Patient states appetite still decreased Only had a few bits of meatloaf and mashed potatoes for lunch but will finish coffee, SF jello and lemon ice Trying to eat more Currently on Lantus 6 units q am and Humalog 2 units plus low dose SS BG 190-262 Diet: Dietary Nutrition Supplements: Other Oral Supplement (see comment) DIET CARDIAC; Carb Control: 4 carb choices (60 gms)/meal Medications: Scheduled Meds: carvedilol 6.25 mg Oral BID WC insulin glargine 6 Units Subcutaneous QAM insulin lispro 2 Units Subcutaneous TID WC pantoprazole 40 mg Oral QAM AC insulin lispro 0-6 Units Subcutaneous TID WC aspirin 325 mg Oral Daily ipratropium-albuterol 1 ampule Inhalation BID sodium chloride flush 10 mL Intravenous 2 times per day sennosides-docusate sodium 1 tablet Oral BID polyethylene glycol 17 g Oral Daily atorvastatin 80 mg Oral Nightly Continuous Infusions: nitroprusside (NIPRIDE) 50 mg in D5W infusion dextrose PRN Meds:metoprolol, sodium chloride flush, potassium chloride, magnesium sulfate, calcium gluconate IVPB, acetaminophen, oxyCODONE-acetaminophen OR oxyCODONE-acetaminophen, bisacodyl, ondansetron, potassium chloride, nitroprusside (NIPRIDE) 50 mg in D5W infusion, glucose, dextrose, glucagon (rD NA), dextrose Objective: BMP: Recent Labs 11/08/18 0118 11/09/18 0455 11/10/18 0125 NA 135 134* 136 K 4.3 3.8 3.7 CL 102 101 101 CO2 25 28 27 BUN 26* 23* 18 CREATININE 1.27* 0.98 0.89 GLUCOSE 223* 199* 190* Glucose: Recent Labs 11/08/18 1649 11/08/18 2009 11/09/18 0702 11/09/18 1254 11/09/18 1633 11/09/18 2223 11/10/18 0806 11/10/18 1149 POCGLU 284* 237* 248* 257* 203* 242* 262* 243* HgbA1C: No results for input(s): LABA1C in the last 72 hours. Hepatic: No results for input(s): ALKPHOS, ALT, AST, PROT, BILITOT, BILIDIR, LABALBU in the last 72 hours. Lipids: No results for input(s): CHOL, TRIG, HDL, LDLCALC in the last 72 hours. Invalid input(s): LDL Physical Exam: Vitals: BP 121/89 Pulse 97 Temp 97.6 F (36.4 C) Resp 18 Ht 5' 8" (1.727 m) Wt 218 lb 4.1 oz (99 kg) SpO2 97% BMI 33.19 kg/m 24 hour intake/output: Intake/Output Summary (Last 24 hours) at 11/10/2018 1246 Last data filed at 11/10/2018 0900 Gross per 24 hour Intake 700 ml Output 650 ml Net 50 ml Physical Exam Constitutional: He is oriented to person, place, and time. He appears well- developed and well-nourished. No distress. Pleasant, talkative obese male HENT: Head: Normocephalic. Eyes: Pupils are equal, round, and reactive to light. Neck: Normal range of motion. Cardiovascular: Normal rate, regular rhythm, normal heart sounds and intact distal pulses. Pulmonary/Chest: Effort normal and breath sounds normal. No respiratory distress. He has no wheezes. Abdominal: Soft. Bowel sounds are normal. Musculoskeletal: Normal range of motion. He exhibits no edema. Neurological: He is alert and oriented to person, place, and time. Skin: Skin is warm and dry. Sternal incision clean and dry Psychiatric: He has a normal mood and affect. His behavior is normal. Assessment: Uncontrolled DM2 with mcfp use of insulin Stress hyperglycemia s/p CABG x 3 Plan: Continue Lantus 6 units daily Continue Humalog 2 units plus low dose SS TID ac POCT ac and hs Carb controlled diet Meds to beds for d/c medication needs Discussed with patient possible discharge plan Patient refuses Metformin because of what he has read Patient agreeable to restarting glipizide at discharge Will continue to monitor if patient may need to continue basal insulin or if another plan can be developed depending on how well he is eating and what his insulin needs are. Patient is counseled about plan Patient is counseled about blood sugar target Patient is counseled about effects of stress and surgery on blood sugar Patient is counseled about importance of DM control. Patient is counseled about risk of complications associatedwith uncontrolled Diabetes Patient is counseled about BS targets and A1C target. Patient is counseled about importance of diet, including eating consistent carbohydrate and protein Patient is counseled about importance of checking BS regularly and when to check Patient is counseled about risk and management of hypoglycemia Time spent with patient 45 minutes with more than 50% of that time in direct face to face counseling as documented in note. I have reviewed previous records and previous workup. Electronically signed by Gisela Sims MSN,RN,ACNS-BC, CDE Clinical Nurse Specialist and special educator on 11/10/2018 12:46 PM * Seth Cruz APRN - CNS - 11/10/2018 10:21 AM EDT Cardiothoracic Surgery Progress Note 11/10/2018 Subjective: Admit Date: 11/06/2018 Interval History: S/P CABG x 3 on 11/06/18 POD#4-rapid heart rate 130-140's this am resolved after BB increased. Subjective: Up in hallway moving side to side like he was dancing earlier. Worried about going homesince his is having surgery tomorrow and he won't have anyone with him at home. Objective: Vitals: BP 123/74 Pulse 92 Temp 98.4 F (36.9 C) Resp 18 Ht 5' 8" (1.727 m) Wt 218 lb 4.1 oz (99 kg) SpO2 98% BMI 33.19 kg/m I/O: Date 11/10/18 0000 - 11/10/18 2359 Shift 7983-8627 1714-7199 7533-4236 24 Hour Total INTAKE P.O. 400 400 Shift Total(mL/kg) 400(4) 400(4) OUTPUT Urine(mL/kg/hr) 400(0.5) 400 Shift Total(mL/kg) 400(4) 400(4) Weight (kg) 99 99 99 99 Weights: Patient Vitals for the past 96 hrs (Last 3 readings): Weight 11/10/18 0430 218 lb 4.1 oz (99 kg) 11/09/18 0700 203 lb 11.3 oz (92.4 kg) Labs: BMP: Recent Labs 11/08/18 0118 11/09/18 0455 11/10/18 0125 NA 135 134* 136 K 4.3 3.8 3.7 CL 102 101 101 CO2 25 28 27 BUN 26* 23* 18 CREATININE 1.27* 0.98 0.89 GLUCOSE 223* 199* 190* . CBC: Recent Labs 11/09/18 0455 11/10/18 0125 WBC 7.7 6.8 HGB 11.2* 12.1* PLT 108* 130* Hepatic: No results for input(s): AST, ALT, ALB, BILITOT, ALKPHOS in the last 72 hours. INR: Lab Results Component Value Date PROTIME 11.8 11/06/2018 INR 1.1 11/06/2018 Films: CXR portable: Reviewed Physical Exam: Physical Exam Constitutional: He is oriented to person, place, and time. He appears well- developed and well-nourished. No distress. HENT: Head: Normocephalic and atraumatic. Eyes: Pupils are equal, round, and reactive to light. Neck: Normal range of motion. Neck supple. No JVD present. Cardiovascular: Normal rate, S1 normal, S2 normal, normal heart sounds and intact distal pulses. Anirregular rhythm present. Exam reveals no gallop and no friction rub. No murmur heard. Pulses: Dorsalis pedis pulses are 2+ on the right side, and 2+ on the left side. Pulmonary/Chest: Effort normal and breath sounds normal. No stridor. No respiratory distress. Abdominal: Soft. Bowel sounds are normal. He exhibits no distension. There is no tenderness. Musculoskeletal: Normal range of motion. He exhibits no edema or tenderness. Neurological: He is alert and oriented to person, place, and time. Skin: Skin is warm and dry. He is not diaphoretic. Mid sternal incision intact with no signs of infection L-Leg incisions intact with no signs of infection Epicardial wires capped. Psychiatric: He has a normal mood and affect. His behavior is normal. Judgment and thought content normal. Medications: Scheduled Meds: carvedilol 6.25 mg Oral BID WC insulin lispro 2 Units Subcutaneous TID WC pantoprazole 40 mg Oral QAM AC insulin lispro 0-6 Units Subcutaneous TID WC aspirin 325 mg Oral Daily ipratropium-albuterol 1 ampule Inhalation BID sodium chloride flush 10 mL Intravenous 2 times per day sennosides-docusate sodium 1 tablet Oral BID polyethylene glycol 17 g Oral Daily atorvastatin 80 mg Oral Nightly Continuous Infusions: nitroprusside (NIPRIDE) 50 mg in D5W infusion dextrose Home Meds: Prior to Admission medications Medication Sig Start Date End Date Taking? Authorizing Provider Insulin Aspart (NOVOLOG FLEXPEN SC) Inject into the skin 4 times daily (before meals and nightly) SSI Yes Historical Provider, amLODIPine (NORVASC) 5 MG tablet Take 5 mg by mouth daily Yes Historical Provider, Cholecalciferol (D3-50 PO) Take by mouth daily Yes Historical Provider, amiodarone (CORDARONE) 200 MG tablet Take 200 mg by mouth daily Yes Historical Provider, losartan (COZAAR) 25 MG tablet Take 25 mg by mouth daily Yes Historical Provider, atorvastatin (LIPITOR) 80 MG tablet TAKE 1 TABLET EVERY DAY Patient taking differently: nightly 08/11/18 Yes Rahul Virgen MD glipiZIDE (GLUCOTROL) 5 MG tablet Take 5 mg by mouth daily 05/23/18 Yes Historical Provider, carvedilol (COREG) 3.125 MG tablet Take 3.125 mg by mouth 2 times daily (with meals) Yes HistoricalMD Eron chlorthalidone (HYGROTON) 25 MG tablet TAKE 1 TABLET BY MOUTH EVERY DAY 12/18/17 Yes Rahul Virgen MD lansoprazole (PREVACID) 15 MG delayed release capsule TAKE 1 CAPSULE BY MOUTH DAILY 05/20/17 Yes Lexie Tariq APRN - DIRECTOR MOTION PICTURE aspirin 81 MG tablet Take 81 mg by mouth daily Yes Historical Provider, Psyllium 500 MG CAPS Take by mouth daily Yes Historical Provider, Lactobacillus (ACIDOPHILUS PO) Take by mouth Yes Historical Provider, chlorhexidine (PERIDEX) 0.12 % solution Swish and spit 15mL the night prior to surgery 11/02/18 Alina Mcclendon APRN - INFRASTRUCTURE CONSULTANT docusate sodium (COLACE, DULCOLAX) 100 MG CAPS Take 100 mg by mouth daily 05/16/18 Matt Anthony MD nitroGLYCERIN (NITROSTAT) 0.[address] 1 tablet under the tongue every 5 minutes as needed for Chest pain 03/27/16 Rahul Virgen MD Diet: Dietary Nutrition Supplements: Other Oral Supplement (see comment) DIET CARDIAC; Carb Control: 4 carb choices (60 gms)/meal Problem List: Principal Problem: S/P CABG x 3 Active Problems: Uncontrolled type 2 diabetes mellitus with complication (HCC) CAD in bo[place] artery Resolved Problems: * No resolved hospital problems. * Assessment and Plan: 1. CAD: Status post on CABGx3 (JUÁREZ-LAD, Ao-OM1 w/RSVG, Ao-RCA-PDA w/ RSVG, L- EVH) on 11/06/18 -EF: Normal systolic function on DANIEL -Core Medication: [x]ASA [x]BB [x] Statin [] ACEi/ARB-off home losartan -Anticoagulation: n/a -Invasive Lines:Central Line: Day #4- IJ introducer 2. Resp Insufficiency (normal post op course): on RA-100%. CXR: Reviewed by Dr. Mckeon during rounds. Continue C&DB, Enc use of IS. 3. MATTIE: Cr 0.89. Resolved. Voiding. 4. Blood loss Anemia: Hgb:12.1 Stable. No s/s bleeding. Continue to monitor CBC 5. Consumptive Thrombocytopenia: Platelets:130 slowly trending up. No s/s bleeding. Continue to monitor labs 6. AFib vs ST: HR 130-140's after ambulating today. EKG shows SR-ST 90's. BB increased. Resolved after BB increaded. 7. Hx Hypertension: SBP 90-130's. Home coreg 3.125 mg BID increased to 6.25 mg 8. DM-II/Stress Hyperglycemia: Insulin per endocrine 9. Post op pain: Continue prn's-if needed. 10. GI/DVT prophylaxis: PPI/Teds-ambulating frequently 11. Social issues: Pt lives with his who is having surgery tomorrow with tentative discharge on . He doesn't have anyone to stay with him until she discharged. I discussed with Dr. Mercado he is okay with pt staying. 12. Disposition: Continue progressive care in [facility]- plan discharge to home in a few days if remains stable. Blood Conservation Initiative Log: -none noted to day * Jeni Garcia, JOSHUA - 11/10/2018 6:36 AM EDT Pt walked up and down the [place] this AM. After walk, pt HR was 130's. Heart monitor reads AFIB. loss control technician called for stat EKG. * Kalhil Roy, PT - 11/09/2018 3:51 PM EDT Physical Therapy Facility/Department: [facility] Daily Treatment Note NAME: Dominga Larkin : 1950 Date of Service: 11/09/2018 Discharge Recommendations: Home with Home health PT Assessment Body structures, Functions, Activity limitations: Decreased functional mobility ;Decreased ROM;Decreased endurance;Increased Pain Assessment: Pt admits poor frequency of spirometry. Transfer however supv and amb 226' supv (HR increased 92-120s). Ramp not available, however, pt completed 4 stairs with minimal difficulty. With P&C ex, cues to increase flex on D2 flexion and chops. Pt with poor location of pillow holding during splinting for cough (too much on abdomen). Expect disch to home--again home health vs. family for support will be kumar issue Prognosis: Good REQUIRES PT FOLLOW UP: Yes Activity Tolerance Activity Tolerance: Patient limited by endurance;Treatment limited secondary to medical complications (free text) Patient Diagnosis(es): There were no encounter diagnoses. has a past medical history of Arthritis, CAD (coronary artery disease), Cerebral artery occlusion with cerebral infarction ([facility]), DM type 2 (diabetes mellitus, type 2) ([facility]), GERD (gastroesophageal reflux disease), Heart attack ([facility]), Hyperlipidemia, Hypertension, Irritable bowel syndrome, and NSTEMI (non-ST elevated myocardial infarction) ([facility]). has a past surgical history that includes Cardiac catheterization; eye surgery; Appendectomy; Coronary angioplasty (04/2012); Diagnostic Cardiac Vendor Management Associate Procedure (10/2014); and brain surgery. Restrictions Restrictions/Precautions Restrictions/Precautions: Weight Bearing, Surgical Protocols, Fall Risk Required Braces or Orthoses?: No Upper Extremity Weight Bearing Restrictions Other: STERNAL PRECAUTIONS Position Activity Restriction Sternal Precautions: No Pushing, No Pulling, 10# Lifting Restrictions Sternal Precautions: YES Other position/activity restrictions: Subjective General Chart Reviewed: Yes Family / Caregiver Present: No Subjective Subjective: Pt in bed, admits he has done little with spirometry but has taken two walks today. Didnot mention spine issues today. General Comment Comments: telemetry Pain Screening Patient Currently in Pain: Denies Vital Signs Patient Currently in Pain: Denies Orientation Orientation Overall Orientation Status: Within Normal Limits Cognition Cognition Overall Cognitive Status: WNL Cognition Comment: Cues for not violating sternal precautions with bed mobility, several cues for UE position during splinting in cough Objective Bed mobility Supine to Sit: Minimal assistance Comment: Attempted to use LUE to assist with torso elevation--tactile cues to avoid. Min for torso elevation Transfers Sit to Stand: Contact guard assistance Stand to sit: Supervision Comment: toilet transfer supv Ambulation Ambulation?: Yes Ambulation 1 Surface: level tile Device: No Device Assistance: Supervision Distance: 225' Comments: Pt w/o diaphoresis today, but c/o fatigue. HR increased from 92 to 120s and with two-peaked QRS (RN alerted-worried pt may be trying to convert to A-fib)-would have runs of normal QRS, thenbi-peaked with what appeared to A-fib. Stairs/Curb Stairs?: Yes Stairs # Steps : 4 Stairs Height: 6" Rails: Left ascending Assistance: Contact guard assistance Comment: good with LUE for balance only; reciprocal pattern; took approx 45 sec to complete Balance Posture: Good Sitting - Static: Good Sitting - Dynamic: Good;- Standing - Static: Good;- Standing - Dynamic: Fair;+ Exercises Comments: P&C ex 1-9, 10 reps each, cues on jerry D2 flex and on chops to increase shldr flex. Spirometer 700 cc (RN notes that's actually better than previously) G-Code OutComes Score AM-PAC Score AM-[facility] Inpatient Mobility Raw Score : 11 (11/07/181038) AM-[facility] Inpatient T-Scale Score : 33.86 (11/07/181038) Mobility Inpatient CMS 0-100% Score: 72.57 (11/07/181038) Mobility Inpatient CMS G-Code Modifier : CL (11/07/181038) Goals Short term goals Time Frame for Short term goals: 10 days Short term goal 1: Bed mobility supv-progressing Short term goal 2: Transfer modif indep-progressing Short term goal 3: Amb 400' or minutes, w/o device, indep, RPE 1 or lower, back pain 3/10 or lower-progressing Short term goal 4: Indep P&C ex-progressing Short term goal 5: Indep managing secretions/ home walking program-progressing Short term goal 6: If logistically available, recommend amb 30' of 03/08 ramp, rail for balance only, supv Patient Goals Patient goals : be able to ride on my tractor soon Plan Plan Times per week: 5-6 Plan weeks: 10 days Current Treatment Recommendations: ROM, Balance Training, Gait Training, Transfer Training, Functional Mobility Training, Home Exercise Program Plan Comment: OK for stairs if necessary Safety Devices Type of devices: (left on toilet, RN aware) Therapy Time Individual Concurrent Group Co-treatment Time In 1508 Time Out 1536 Minutes 28 Kahlil Roy PT * Ralph Casas DO - 11/09/2018 1:57 PM EDT Department of Internal Medicine Section of Endocrinology Attending Progress Note SUBJECTIVE: Admit date: 11/06/2018 Admitted w/: No chief complaint on file. Original Endocrine Consult date: 11/06/18 OutPt Band Tumbler: none Lab Results Component Value Date LABA1C 9.9 (H) 10/29/2018 Lab Results Component Value Date EAG 237 10/29/2018 Lab Results Component Value Date CREATININE 0.98 11/09/2018 Pre-Admission Home DM regimen: Glipizide BID novolog SS 4x/day (randomly) Since last inpatient Endocrine encounter patient reports: Voices no complaints during today's encounter Current Insulin regimen: Humalog low SS qAC Insulin gtt DC'd on: 11/07/18 Inpt glucocorticoid use: [] YES [x] NO Glucose and Insulin Review: As per EMR Hypoglycemia Event(s) in the past 24 hrs: [] Yes [x] No Other notes in EMR reviewed: [x]YES, [] NO Tolerating PO intake: [x] Yes [] No PO intake: More than at home []; Same as at home []; Less than at home [x] cardiac diet and Carb controlled 60 g limit no juice Current Inpatient Medications Current Facility-Administered Medications: metoprolol (LOPRESSOR) injection 5 mg, 5 mg, Intravenous, Q6H PRN pantoprazole (PROTONIX) tablet 40 mg, 40 mg, Oral, QAM AC insulin lispro (HUMALOG) injection vial 0-6 Units, 0-6 Units, Subcutaneous, TID WC aspirin EC tablet 325 mg, 325 mg, Oral, Daily carvedilol (COREG) tablet 3.125 mg, 3.125 mg, Oral, BID ipratropium-albuterol (DUONEB) nebulizer solution 1 ampule, 1 ampule, Inhalation, BID sodium chloride flush 0.9 % injection 10 mL, 10 mL, Intravenous, 2 times per day sodium chloride flush 0.9 % injection 10 mL, 10 mL, Intravenous, PRN potassium chloride 20 mEq/50 mL IVPB (Central Line), 20 mEq, Intravenous, PRN magnesium sulfate 2 g in 50 mL IVPB premix, 2 g, Intravenous, PRN calcium gluconate 2 g in sodium chloride 0.9 % 100 mL IVPB, 2 g, Intravenous, PRN acetaminophen (TYLENOL) tablet 500 mg, 500 mg, Oral, Q4H PRN oxyCODONE-acetaminophen (PERCOCET) 5-325 MG per tablet 1 tablet, 1 tablet, Oral, Q6H PRN OR oxyCODONE-acetaminophen (PERCOCET) 5-325 MG per tablet 2 tablet, 2 tablet, Oral, Q6H PRN sennosides-docusate sodium (SENOKOT-S) 8.6-50 MG tablet 1 tablet, 1 tablet, Oral, BID polyethylene glycol (GLYCOLAX) packet 17 g, 17 g, Oral, Daily bisacodyl (DULCOLAX) suppository 10 mg, 10 mg, Rectal, Daily PRN ondansetron (ZOFRAN) injection 4 mg, 4 mg, Intravenous, Q8H PRN mupirocin (BACTROBAN) 2 % ointment, , Nasal, BID potassium chloride (KLOR-CON M) extended release tablet 20 mEq, 20 mEq, Oral, PRN atorvastatin (LIPITOR) tablet 80 mg, 80 mg, Oral, Nightly nitroPRUSSide (NIPRIDE) 50 mg in dextrose 5 % 250 mL infusion, 0.1 mcg/kg/min, Intravenous, Continuous PRN glucose (GLUTOSE) 40 % oral gel 15 g, 15 g, Oral, PRN dextrose 50 % IV solution, 12.5 g, Intravenous, PRN glucagon (rDNA) injection 1 mg, 1 mg, Intramuscular, PRN dextrose 5 % solution, 100 mL/hr, Intravenous, PRN Subjective: Review of Systems All other systems reviewed and are negative. Inpt ROS: [] FULTON [] diaphoresis [] tremor [] CP [] chest pressure [] palpitation [] SOB [] Abd pain [] Nausea [] Emesis [] Other: (Legend: [x] if present; [] if not present) Objective: Physical VITALS: BP 133/74 Pulse 89 Temp 98.8 F (37.1 C) Resp 18 Ht 5' 8" (1.727 m) Wt 204 lb (92.5 kg) SpO2 96% BMI 31.02 kg/m Physical Exam Constitutional: He is oriented to person, place, and time. He appears well- developed and well-nourished. No distress. Adult male appears his stated age. Pleasant and answering questions appropriately. HENT: Head: Normocephalic and atraumatic. Right Ear: External ear normal. Left Ear: External ear normal. Nose: Nose normal. Eyes: Conjunctivae are normal. Right eye exhibits no discharge. Left eye exhibits no discharge. No scleral icterus. Cardiovascular: Normal rate and regular rhythm. Pulmonary/Chest: Effort normal. No respiratory distress. Neurological: He is alert and oriented to person, place, and time. Skin: Skin is warm. He is not diaphoretic. Psychiatric: He has a normal mood and affect. His behavior is normal. Vitals reviewed. DATA Impression: I reviewed: [x] laboratory results [] radiographic results At the time oftoday's encounter. Pt was advised of the results. ASSESSMENT: Type 2 diabetes uncontrolled with complication Coronary artery disease status post coronary artery bypass graft Hyperglycemia Stress hyperglycemia Morbid obesity BMI 31.1. PLAN: The inpt antihyperglycemic regimen will be as follows: Lantus 6 units Humalog 2/2/2 Sliding scale before meals only Continue carb controlled diet Inpt GMF glucose goal 150. Inpt ICU glucose goal 150. Outpt goal A1C = 7%. Insulin is necessary for ongoing inpt mgmt. FSBS to occur qAC/HS/PRN for s/s of hyper-/hypoglycemia. FSBS data will be used to determine the next steps in antihyperglycemic medication titration duringhospital stay. If hypoglycemia were to occur itshould be treated per hospital protocol. Diet recommendation: cardiac carb controlled 60 g limit no juice w/ trays If the pt is to bedischarged from the hospital I recommend: Too soon to make recs. Expect at least PO meds. Please page the on-call Band Tumbler if there arequestions regarding Endocrine DC recommendations. If there are any questions or concerns related to the info in this progress note please page the oncall student union consultant directly. On-Call information can be found in the [facility] Directory. We appreciate the opportunity to participate in this pt's ongoing medical care. I spent 25 minutes with the pt which involved more than 51% of the time in coordination of care, medicalevaluation, review of records, and/or counseling of the pt regarding her condition/disease state/prognosis on the date of this note. Portions of the information within this encounter were entered using an electronic dictation system. Best attempts were made to edit/proofread the information prior to note completion. Despite the review of information, some errors may remain. If there are questions related to the information contained within the note please contact the signing physician directly. * Rahul Lundy - 11/09/2018 12:25 PM EDT Occupational Therapy Facility/Department: [facility] Daily Treatment Note NAME: Dominga Larkin : 1950 Date of Service: 11/09/2018 Discharge Recommendations: Home with Home health OT, Home with hospital aide Assessment Assessment: Pt is progressing well with OT. Pt had chest tubes removed and is able to ambulate in room with FWW with cga with min safety cues. Pt does require cues for following sternal precautions with transfers. Overall pt is at a CGA and if keep progressing will be fine to D/C home with home OT and nursing aides to assist with ADL's. REQUIRES OT FOLLOW UP: Yes Safety Devices Safety Devices in place: Yes Type of devices: All fall risk precautions in place;Call light within reach;Nurse notified;Left in chair;Patient at risk for falls Patient Diagnosis(es): There were no encounter diagnoses. has a past medical history of Arthritis, CAD (coronary artery disease), Cerebral artery occlusion with cerebral infarction ([facility]), DM type 2 (diabetes mellitus, type 2) ([facility]), GERD (gastroesophageal reflux disease), Heart attack ([facility]), Hyperlipidemia, Hypertension, Irritable bowel syndrome, and NSTEMI (non-ST elevated myocardial infarction) ([facility]). has a past surgical history that includes Cardiac catheterization; eye surgery; Appendectomy; Coronary angioplasty (04/2012); Diagnostic Cardiac Vendor Management Associate Procedure (10/2014); and brain surgery. Restrictions Restrictions/Precautions Restrictions/Precautions: Weight Bearing, Surgical Protocols, Modified Diet, Fall Risk Required Braces or Orthoses?: No Upper Extremity Weight Bearing Restrictions Other: STERNAL PRECAUTIONS Position Activity Restriction Sternal Precautions: No Pushing, No Pulling, 10# Lifting Restrictions Sternal Precautions: YES Other position/activity restrictions: o2 2L Subjective General Chart Reviewed: Yes Patient assessed for rehabilitation services?: Yes Additional Pertinent Hx: left rotator cuff strain 4-5 years ago Family / Caregiver Present: No Diagnosis: CABG x3 on 11-06-[address] Mckeon Subjective Subjective: Pt supine in bed and agreeable to OT tx. General Comment Comments: Pt had chest tubes removed, OK for therapy per nursing Vital Signs Patient Currently in Pain: Denies Orientation Orientation Overall Orientation Status: Within Functional Limits Objective ADL Grooming: Contact guard assistance(standing at sink) LE Dressing: Contact guard assistance Toileting: Contact guard assistance Additional Comments: Pt completed LB dressing while seated in recliner with extended time for processing Balance Sitting Balance: Supervision Standing Balance: Contact guard assistance Functional Mobility Functional - Mobility Device: Rolling Walker Activity: To/from bathroom;Retrieve items Assist Level: Contact guard assistance Toilet Transfers Toilet - Technique: Ambulating Equipment Used: Standard toilet Toilet Transfer: Contact guard assistance Toilet Transfers Comments: cues to cross arms when sitting and standing opposed to using grab bar Bed mobility Rolling to Left: Contact guard assistance Sit to Supine: Contact guard assistance Scooting: Contact guard assistance Comment: bed flat and cues for tech with extended time to perform and sequence Transfers Sit to stand: Contact guard assistance Stand to sit: Contact guard assistance Transfer Comments: cues for not using hands with transfers but to hold pillow Plan Plan Times per week: 5 Current Treatment Recommendations: Functional Mobility Training, Cognitive Reorientation, Patient/Caregiver Education & Training, Home Management Training, Endurance Training, Equipment Evaluation, Education, & procurement, Balance Training, Safety Education & Training, Self-Care / ADL Plan Comment: cont OT tx per POC Goals Short term goals Time Frame for Short term goals: 2 weeks Short term goal 1: LE dressing - modif. indep. with AE prn-progressing Short term goal 2: Toilet transfers and toiileting - modif. indep. -progressing Short term goal 3: Bed mobility from flat bed -indep. -progressing Short term goal 4: Complete dynamci ambulatory simulated IADL task - modifr. indep. -progressing Short term goal 5: Verbalize and follow through with sternal precautions 100% of time -progressing Patient Goals Patient goals : go home Therapy Time Individual Concurrent Group Co-treatment Time In 1141 Time Out 1225 Minutes 44 Timed Code Treatment Minutes: 44 Minutes(3 ADL) Rahul Lundy * Kvng Gonsalez, MAKEUP EDITOR - DIRECTOR MOTION PICTURE - 11/09/2018 11:35 AM EDT Cardiothoracic Surgery Progress Note 11/09/2018 Admit Date: 11/06/2018 PCP: Doug Love MD Length of Stay: 3 HPI-Interval: No acute events noted on rounds. Slept most of night. Subjective: Resting in bed stated that he has some "chest discomfort" but otherwise is feeling good. No other needs at this time. May try MOM or mag citrate if unable to have BM today. Objective: Physical Exam Constitutional: He is oriented to person, place, and time. He appears well- developed and well-nourished. He is active and cooperative. No distress. Nasal cannula in place. HENT: Head: Normocephalic and atraumatic. Right Ear: Hearing and external ear normal. Left Ear: Hearing and external ear normal. Nose: Nose normal. Mouth/Throat: Uvula is midline, oropharynx is clear and moist and mucous membranes are normal. No oropharyngeal exudate. Eyes: Pupils are equal, round, and reactive to light. Conjunctivae, EOM and lids are normal. Right eye exhibits no discharge. Left eye exhibits no discharge. No scleral icterus. Neck: Trachea normal and full passive range of motion without pain. No JVD present. No tracheal deviation present. No thyroid mass and no thyromegaly present. Cardiovascular: Normal rate, regular rhythm, S1 normal, S2 normal and normal heart sounds. Exam reveals no S3 and no S4. No murmur heard. Pulses: Radial pulses are 2+ on the right side, and 2+ on the left side. Dorsalis pedis pulses are 2+ on the right side, and 2+ on the left side. Posterior tibial pulses are 2+ on the right side, and 2+ on the left side. Pulmonary/Chest: Effort normal and breath sounds normal. No accessory muscle usage or stridor. He has no decreased breath sounds. He has no wheezes. He has no rhonchi. He has no rales. Chest wall is not dull to percussion. He exhibits no mass, no tenderness and no crepitus. Breasts are symmetrical. Abdominal: Soft. Normal appearance and bowel sounds are normal. He exhibits no shifting dullness, no distension and no mass. There is no tenderness. There is no rigidity, no rebound, no guarding, no tenderness at McBurney's point and negative Puentes's sign. Musculoskeletal: He exhibits no edema. Lymphadenopathy: He has no cervical adenopathy. Neurological: He is alert and oriented to person, place, and time. No cranial nerve deficit or sensory deficit. Skin: Skin is warm, dry and intact. Capillary refill takes less than 2 seconds. No rash noted. He is not diaphoretic. No cyanosis or erythema. No pallor. Nails show no clubbing. Color normal for ethnicity. Nails are clean and free from pitting bilaterally. Midsternal incision clean dry and intact Psychiatric: He has a normal mood and affect. His speech is normal and behavior is normal. Thought content normal. Nursing note and vitals reviewed. Vitals: BP (!) 132/94 Pulse 82 Temp 98.6 F (37 C) Resp 20 Ht 5' 8" (1.727 m) Wt 204 lb (92.5 kg) SpO2 98% BMI 31.02 kg/m Labs and Diagnostics: Reviewed CXR Portable: CXR image and interpretation reviewed Medications: Reviewed Assessment/Plan: CAD/HTN/HLP-S/P CABGx3 (JUÁREZ to mid LAD, Ao to RCA-PDA, Ao to OM1) on 11/06/: POD #3: hemodynamically stable; minimal chest tube output. No changes made to medications. OOB; encourage pulm hygiene and PO intake. Wean O2 as able. Chest tubes assessed: no air leak, subcutaneous air noted. Chest tubes removed without difficulty and dressing applied. Patient tolerated well. Patient and nurse educated on possible complications toobserve for. Will continue to monitor. Core Medication: ASA, statin, BB, no ACEi-renal function/normal EF Invasive Lines: Central Line: Day #3 DVT prohy: SCDs/TEDs PT/OT recs: anticipate home with home assist. Disposition: D/c chest tubes; increase activity; encourage PO intake-->no BM hold additional agent currently. POAF: x1 episode; converted with BB IVP: not on amio only on BB. Currently SR with rates in 80's. MATTIE: resolved SCr--> downtrending. 0.98 from high of 1.74. Avoid hypotensive events/nephrotoxic agents. Continue to monitor him labs/urine output. Held lasix yesterday and today; -fluid balance. DM type II/Stress hyperglycemia: HgA1C 9.9: Insulin management per Endocrinology, on subcutaneous regimen GERD: PPI Initial Post op RBC Transfusion (Blood conservation log): -none noted to date LALY Hu CNP * Ralph Casas, DO - 11/08/2018 9:43 AM EDT Department of Internal Medicine Section of Endocrinology Attending Progress Note SUBJECTIVE: Admit date: 11/06/2018 Admitted w/: No chief complaint on file. Original Endocrine Consult date: 11/06/18 OutPt Band Tumbler: none Lab Results Component Value Date LABA1C 9.9 (H) 10/29/2018 Lab Results Component Value Date EAG 237 10/29/2018 Lab Results Component Value Date CREATININE 1.27 (H) 11/08/2018 Pre-Admission Home DM regimen: Glipizide BID novolog SS 4x/day (randomly) Since last inpatient Endocrine encounter patient reports: Patient has no specific complaints at today's encounter. Current Insulin regimen: Humalog low SS qAC Insulin gtt DC'd on: 11/07/18 Inpt glucocorticoid use: [] YES [x] NO Glucose and Insulin Review: As per EMR Hypoglycemia Event(s) in the past 24 hrs: [] Yes [x] No Other notes in EMR reviewed: [x]YES, [] NO Tolerating PO intake: [x] Yes [] No PO intake: More than at home []; Same as at home []; Less than at home [x] cardiac diet Current Inpatient Medications Current Facility-Administered Medications: metoprolol (LOPRESSOR) injection 5 mg, 5 mg, Intravenous, Q6H PRN pantoprazole (PROTONIX) tablet 40 mg, 40 mg, Oral, QAM AC insulin glargine (LANTUS) injection vial 6 Units, 6 Units, Subcutaneous, Once insulin lispro (HUMALOG) injection vial 0-6 Units, 0-6 Units, Subcutaneous, TID WC aspirin EC tablet 325 mg, 325 mg, Oral, Daily carvedilol (COREG) tablet 3.125 mg, 3.125 mg, Oral, BID WC ipratropium-albuterol (DUONEB) nebulizer solution 1 ampule, 1 ampule, Inhalation, BID sodium chloride flush 0.9 % injection 10 mL, 10 mL, Intravenous, 2 times per day sodium chloride flush 0.9 % injection 10 mL, 10 mL, Intravenous, PRN potassium chloride 20 mEq/50 mL IVPB (Central Line), 20 mEq, Intravenous, PRN magnesium sulfate 2 g in 50 mL IVPB premix, 2 g, Intravenous, PRN calcium gluconate 2 g in sodium chloride 0.9 % 100 mL IVPB, 2 g, Intravenous, PRN acetaminophen (TYLENOL) tablet 500 mg, 500 mg, Oral, Q4H PRN oxyCODONE-acetaminophen (PERCOCET) 5-325 MG per tablet 1 tablet, 1 tablet, Oral, Q6H PRN OR oxyCODONE-acetaminophen (PERCOCET) 5-325 MG per tablet 2 tablet, 2 tablet, Oral, Q6H PRN morphine (PF) injection 2 mg, 2 mg, Intravenous, Q2H PRN OR morphine (PF) injection 4 mg, 4 mg,Intravenous, Q2H PRN sennosides-docusate sodium (SENOKOT-S) 8.6-50 MG tablet 1 tablet, 1 tablet, Oral, BID polyethylene glycol (GLYCOLAX) packet 17 g, 17 g, Oral, Daily bisacodyl (DULCOLAX) suppository 10 mg, 10 mg, Rectal, Daily PRN ondansetron (ZOFRAN) injection 4 mg, 4 mg, Intravenous, Q8H PRN mupirocin (BACTROBAN) 2 % ointment, , Nasal, BID potassium chloride (KLOR-CON M) extended release tablet 20 mEq, 20 mEq, Oral, PRN atorvastatin (LIPITOR) tablet 80 mg, 80 mg, Oral, Nightly 0.9 % sodium chloride bolus, 250 mL, Intravenous, PRN nitroPRUSSide (NIPRIDE) 50 mg in dextrose 5 % 250 mL infusion, 0.1 mcg/kg/min, Intravenous, Continuous PRN glucose (GLUTOSE) 40 % oral gel 15 g, 15 g, Oral, PRN dextrose 50 % IV solution, 12.5 g, Intravenous, PRN glucagon (rDNA) injection 1 mg, 1 mg, Intramuscular, PRN dextrose 5 % solution, 100 mL/hr, Intravenous, PRN Subjective: Review of Systems Inpt ROS: [] FULTON [] diaphoresis [] tremor [] CP [] chest pressure [] palpitation [] SOB [] Abd pain [] Nausea [] Emesis [] Other: (Legend: [x] if present; [] if not present) Objective: Physical VITALS: BP 91/62 Pulse 67 Temp 98.1 F (36.7 C) Resp 8 Ht 5' 8" (1.727 m) Wt 204 lb (92.5 kg) SpO2 92% BMI 31.02 kg/m Physical Exam Constitutional: He is oriented to person, place, and time. He appears well- developed and well-nourished. No distress. Adult male appears his stated age. Pleasant and answering questions appropriately. HENT: Head: Normocephalic and atraumatic. Right Ear: External ear normal. Left Ear: External ear normal. Nose: Nose normal. Eyes: Conjunctivae are normal. Right eye exhibits no discharge. Left eye exhibits no discharge. No scleral icterus. Cardiovascular: Normal rate and regular rhythm. Pulmonary/Chest: Effort normal. No respiratory distress. Neurological: He is alert and oriented to person, place, and time. Skin: Skin is warm. He is not diaphoretic. Psychiatric: He has a normal mood and affect. His behavior is normal. Vitals reviewed. DATA Impression: I reviewed: [x] laboratory results [] radiographic results At the time oftoday's encounter. Pt was advised of the results. ASSESSMENT: Type 2 diabetes uncontrolled with complication Coronary artery disease status post coronary artery bypass graft Hyperglycemia Stress hyperglycemia Morbid obesity BMI 31.1. PLAN: The inpt antihyperglycemic regimen will be as follows: One dose of lantus 6 units Change diet to include carb controlled Plan was discussed with the patient and his family member who was at the bedside. Inpt GMF glucose goal 150. Inpt ICU glucose goal 150. Outpt goal A1C = 7%. Insulin is necessary for ongoing inpt mgmt. FSBS to occur qAC/HS/PRN for s/s of hyper-/hypoglycemia. FSBS data will be used to determine the next steps in antihyperglycemic medication titration duringhospital stay. If hypoglycemia were to occur itshould be treated per hospital protocol. Diet recommendation: cardiac carb controlled 60 g limit no juice w/ trays If the pt is to bedischarged from the hospital I recommend: Too soon to make recs. Expect at least PO meds. Please page the on-call Band Tumbler if there arequestions regarding Endocrine DC recommendations. If there are any questions or concerns related to the info in this progress note please page the oncall student union consultant directly. On-Call information can be found in the [facility] Directory. We appreciate the opportunity to participate in this pt's ongoing medical care. I spent 35 minutes with the pt which involved more than 51% of the time in coordination of care, medicalevaluation, review of records, and/or counseling of the pt regarding her condition/disease state/prognosis on the date of this note. Portions of the information within this encounter were entered using an electronic dictation system. Best attempts were made to edit/proofread the information prior to note completion. Despite the review of information, some errors may remain. If there are questions related to the information contained within the note please contact the signing physician directly. * GonsalezKvng tavares, MAKEUP EDITOR - DIRECTOR MOTION PICTURE - 11/08/2018 9:03 AM EDT Cardiothoracic Surgery Progress Note 11/08/2018 Admit Date: 11/06/2018 PCP: Doug Love MD Length of Stay: 2 HPI-Interval: Afib-->converted with IVP lopressor. No amio/bolus or gtt initiated. -1.6L for stay. Subjective: Patient is up in chair at bedside. Mr. Mitchell stated that he is doing well. Denies any chest pain shortness of breath or palpitations currently. No needs at this time. Objective: Physical Exam Constitutional: He is oriented to person, place, and time. He appears well- developed and well-nourished. He is active and cooperative. No distress. Nasal cannula in place. HENT: Head: Normocephalic and atraumatic. Right Ear: Hearing and external ear normal. Left Ear: Hearing and external ear normal. Nose: Nose normal. Mouth/Throat: Uvula is midline, oropharynx is clear and moist and mucous membranes are normal. No oropharyngeal exudate. Eyes: Pupils are equal, round, and reactive to light. Conjunctivae, EOM and lids are normal. Right eye exhibits no discharge. Left eye exhibits no discharge. No scleral icterus. Neck: Trachea normal and full passive range of motion without pain. No JVD present. No tracheal deviation present. No thyroid mass and no thyromegaly present. Cardiovascular: Normal rate, regular rhythm, S1 normal, S2 normal and normal heart sounds. Exam reveals no S3 and no S4. No murmur heard. Pulses: Radial pulses are 2+ on the right side, and 2+ on the left side. Dorsalis pedis pulses are 2+ on the right side, and 2+ on the left side. Posterior tibial pulses are 2+ on the right side, and 2+ on the left side. Pulmonary/Chest: Effort normal and breath sounds normal. No accessory muscle usage or stridor. He has no decreased breath sounds. He has no wheezes. He has no rhonchi. He has no rales. Chest wall is not dull to percussion. He exhibits no mass, no tenderness and no crepitus. Breasts are symmetrical. Abdominal: Soft. Normal appearance and bowel sounds are normal. He exhibits no shifting dullness, no distension and no mass. There is no tenderness. There is no rigidity, no rebound, no guarding, no tenderness at McBurney's point and negative Puentes's sign. Musculoskeletal: He exhibits no edema. Lymphadenopathy: He has no cervical adenopathy. Neurological: He is alert and oriented to person, place, and time. No cranial nerve deficit or sensory deficit. Skin: Skin is warm, dry and intact. Capillary refill takes less than 2 seconds. No rash noted. He is not diaphoretic. No cyanosis or erythema. No pallor. Nails show no clubbing. Color normal for ethnicity. Nails are clean and free from pitting bilaterally. Midsternal incision clean dry and intact Psychiatric: He has a normal mood and affect. His speech is normal and behavior is normal. Thought content normal. Nursing note and vitals reviewed. Vitals: BP 91/62 Pulse 67 Temp 98.1 F (36.7 C) Resp 8 Ht 5' 8" (1.727 m) Wt 204 lb (92.5 kg) SpO2 96% BMI 31.02 kg/m Labs and Diagnostics: Reviewed CXR Portable: CXR image and interpretation reviewed Medications: Reviewed Assessment/Plan: CAD/HTN/HLP-S/P CABGx3 (JUÁREZ to mid LAD, Ao to RCA-PDA, Ao to OM1) on 11/06/18: POD #2: CXR reviewed, Stopped IV Lasix if patient has low urine output may consider p.o. Lasix later today- 2.9 liters UO/24hrs. No other changes currently to medications. Chest tubes with 210 mL output no air leak or fluctuation noted okay to switch to waterseal. OOB, increase activity, encourage p.o. Intake. Core Medication: ASA, statin, BB, no ACEi-renal function/normal EF Invasive Lines: Central Line: Day #2 Ritchie: Day #2 DVT prohy: SCDs/TEDs PT/OT recs: anticipate home with home assist. Disposition: Chest tubes waterseal maintained today OOB for meals increase activity encourage p.o. Intake MATTIE: SCr--> downtrending. 1.27 from high of 1.74. Avoid hypotensive events/nephrotoxic agents. Continue to monitor him labs/urine output DM type II/Stress hyperglycemia: HgA1C 9.9: Insulin management per Endocrinology, on subcutaneous regimen GERD: PPI Initial Post op RBC Transfusion (Blood conservation log): -none noted to date LALY Hu CNP * Angelica Lawson OTR/Sagrario - 11/07/2018 1:20 PM EDT Occupational Therapy Occupational Therapy Initial Assessment Date: 11/07/2018 Patient Name: Dominga Larkin : 1950 Date of Service: 11/07/2018 Discharge Recommendations: (facility based therapy if patient is unable to perform all ADL's and basic IADL's independently athome at time of actual discharge from hospital or if patient progresses nicely, may be able to go home with home health OT. ) OT Equipment Recommendations Equipment Needed: Yes Other: use of toilet riser and shower chair Assessment Performance deficits / Impairments: Decreased functional mobility ;Decreased endurance;Decreased ADL status;Decreased safe awareness;Decreased high-level IADLs;Decreased balance;Decreased cognition Assessment: OT eval completed. Patient presents with impairments in above stated performance areas.Demonstrating need for a lot of physical assist at this time. Patient's SO will not be able to provide assistance at home as she is having surgery on 11-11-18. No support is available to either one (per both of their reports). Depending on patient's progress while inpatient, may need facility based therapy to increase functional independence prior to going home where there will be no assist available or he may progress enough to go home with home health OT. Prognosis: Fair Decision Making: Low Complexity REQUIRES OT FOLLOW UP: Yes Safety Devices Safety Devices in place: Yes Type of devices: Patient at risk for falls;Left in bed;Call light within reach(SO in room ) Patient Diagnosis(es): There were no encounter diagnoses. has a past medical history of Arthritis, CAD (coronary artery disease), Cerebral artery occlusion with cerebral infarction ([facility]), DM type 2 (diabetes mellitus, type 2) ([facility]), GERD (gastroesophageal reflux disease), Heart attack ([facility]), Hyperlipidemia, Hypertension, Irritable bowel syndrome, and NSTEMI (non-ST elevated myocardial infarction) ([facility]). has a past surgical history that includes Cardiac catheterization; eye surgery; Appendectomy; Coronary angioplasty (04/2012); Diagnostic Cardiac Vendor Management Associate Procedure (10/2014); and brain surgery. Restrictions Restrictions/Precautions: Weight Bearing, Surgical Protocols, Modified Diet, Fall Risk(cardiac diet, CORINE hose daily, falls risk, up as tolerated, +O2 2L NC, + ritchie, + chest tubes, sternal precautions, + tele) Other: STERNAL PRECAUTIONS Sternal Precautions: No Pushing, No Pulling, 10# Lifting Restrictions Sternal Precautions: YES Subjective General Chart Reviewed: Yes Patient assessed for rehabilitation services?: Yes Additional Pertinent Hx: left rotator cuff strain 4-5 years ago Family / Caregiver Present: Yes(girlfriend Rene in room ) Diagnosis: CABG x3 on 11-06-[address] Mckeon Subjective Subjective: Patient in bed, awake, ageeable to OT. Girlfriend, Rene, is in room. Patient prefers to be called Carlos. General Comment Comments: Patient presented for scheduled CABG x3 by Dr. Mckeon on 11-06-18 Patient Currently in Pain: No(states it is only "discomfort" in chest right now) Social/Functional History Social/Functional History Lives With: Significant other(Rene ) Type of Home: Mobile home Home Layout: One level Home Access: Ramped entrance Bathroom Shower/Tub: Tub/Shower unit, Curtain Bathroom Toilet: Standard(2nd bathroom that SO uses does have a toilet riser on it. ) Bathroom Equipment: Shower chair, Hand-held shower(SO reports she has a shower chair in storage that patient has used before and can get it out. 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 SO is having surgery herself on the and will not be able to provide assist to patient for some amount of time. Patient and SO report thereis no one else that can help them with shopping, laundry, etc. Objective Orientation Overall Orientation Status: Within Functional Limits Functional Mobility Functional Mobility Comments: 8 minute treatment: Completed static standing with min assist progressing to contact guard while RN replaced/fized some EKG leads on chest. Performed lateral weight shifts with min assist. Took steps along side bed up and down with min assist. Completed unilateral UE reaching task within fucntional arm length with min assist and several losses of balance needed assist to correct. Stand to sit on bed was min assist. Sit to supine was max assist. ADL LE Dressing: Minimal assistance(to sit on edge of bed and doff then kristi slipper socks. ) Bed mobility Rolling to Left: Minimal assistance Sit to Supine: Maximum assistance Scooting: Minimal assistance Comment: bed flat and no use of rail Transfers Sit to stand: Minimal assistance Stand to sit: Minimal assistance Vision - Basic Assessment Prior Vision: Wears glasses all the time Oculo Motor Control: WNL Cognition Overall Cognitive Status: WNL Cognition Comment: Grossly intact though needed cues throughout session to follow sternal precautions, was able to verbalize them but not always follow through with them during tasks. Sensation Overall Sensation Status: WFL UE AROM/PROM: WFL UE Strength Comment: Defer MMT due to sternal precautions, at least 3/5, golf club head inspector good and equal Hand Dominance: Left Plan Plan Times per week: 5 Current Treatment Recommendations: Functional Mobility Training, Cognitive Reorientation, Patient/Caregiver Education & Training, Home Management Training, Endurance Training, Equipment Evaluation, Education, & procurement, Balance Training, Safety Education & Training, Self-Care / ADL Goals and/or treatment plan was established in collaboration with patient/family/other representatives. Patient's Occupational Therapy [facility] AM-PAC Score AM-PAC Inpatient Daily Activity Raw Score: 18 (11/07/181335) AM-PAC Inpatient ADL T-Scale Score : 38.66 (11/07/181335) ADL Inpatient CMS 0-100% Score: 46.65 (11/07/181335) ADL Inpatient CMS G-Code Modifier : CK (11/07/181335) Goals Short term goals Time Frame for Short term goals: 2 weeks Short term goal 1: LE dressing - modif. indep. with AE prn Short term goal 2: Toilet transfers and toiileting - modif. indep. Short term goal 3: Bed mobility from flat bed -indep. Short term goal 4: Complete dynamci ambulatory simulated IADL task - modifr. indep. Short term goal 5: Verbalize and follow through with sternal precautions 100% of time Patient Goals Patient goals : go home Therapy Time Individual Concurrent Group Co-treatment Time In 1250 Time Out 1320 Minutes 30 Timed Code Treatment Minutes: 8 Minutes(1 self care ) DAPHNE Fuentes * Neema Sims APRN - INFRASTRUCTURE CONSULTANT - 11/07/2018 11:36 AM EDT ENDOCRINOLOGY PROGRESS NOTE Patient: Dominga Larkin Unit/Bed:[id number] Date of : 1950 Admit date: 11/06/2018 Patient Seen,Chart, Consults notes, Labs, Radiology studies reviewed. Subjective: The patient is being followed for: DM2 with stress hyperglycemia S/p CABG x 3 11/06/18 All other ROSnegative except noted in HPI. Past, Family, Social History unchanged from admission. HPI: Patient admitted for scheduled CABG Girlfriend at the bedside Patient takes glipizide BID (unsure of dose) and Novolog SS 4 times a day Patient's Hgba1c was 6.6% 05/06/18 but 10/29/18 up to 9.9% Patient has erratic schedule for meals--1-3 a day Patient reports BG at home 200-400 PCP manages diabetes Takes Novolog and glipizide but not always before meals, when he remembers or if out and about might not have supplies with him so when he can Patient states his insurance does not cover Lantus Cost of insulin is an issue Currently on insulin drip at 4 units/hr BG 75-122 Diet: DIET CARDIAC; Medications: Scheduled Meds: aspirin 325 mg Oral Daily furosemide 20 mg Intravenous Q12H carvedilol 3.125 mg Oral BID WC ipratropium-albuterol 1 ampule Inhalation BID sodium chloride flush 10 mL Intravenous 2 times per day ceFAZolin (ANCEF) IVPB 2 g Intravenous Q8H sennosides-docusate sodium 1 tablet Oral BID polyethylene glycol 17 g Oral Daily pantoprazole 40 mg Intravenous Daily And sodium chloride (PF) 10 mL Intravenous Daily chlorhexidine 15 mL Mouth/Throat BID mupirocin Nasal BID atorvastatin 80 mg Oral Nightly Continuous Infusions: sodium chloride 50 mL/hr at 11/06/18 0606 sodium chloride 20 mL/hr at 11/06/18 1413 propofol Stopped (11/06/18 1415) nitroprusside (NIPRIDE) 50 mg in D5W infusion insulin (HUMAN R) non-weight based infusion 4 Units/hr (11/07/18 1000) dextrose EPINEPHrine infusion Stopped (11/06/18 8969) phenylephrine (KAYLEIGH-SYNEPHRINE) 50mg/250mL infusion Stopped (11/06/18 1414) PRN Meds:sodium chloride flush, potassium chloride, magnesium sulfate, calcium gluconate IVPB, acetaminophen, oxyCODONE-acetaminophen OR oxyCODONE- acetaminophen, morphine OR morphine, bisacodyl, ondansetron, potassium chloride, sodium chloride, nitroprusside (NIPRIDE) 50 mg in D5W infusion, glucose, dextrose, glucagon (rDNA), dextrose, insulin regular Objective: BMP: Recent Labs 11/06/18 1233 11/06/18 1739 11/07/18 0007 NA 139 142 140 K 3.6 2.8* 4.2 CL 106 109* 110* CO2 21* 19* 23 BUN 32* 28* 28* CREATININE 1.70* 1.74* 1.56* GLUCOSE 145* 181* 75 Glucose: Recent Labs 11/07/18 0203 11/07/18 0259 11/07/18 0407 11/07/18 0456 11/07/18 0600 11/07/18 0702 11/07/18 0917 11/07/18 1010 POCGLU 93 79 122* 130* 119* 114* 93 108* HgbA1C: No results for input(s): LABA1C in the last 72 hours. Hepatic: Recent Labs 11/04/18 1659 ALKPHOS 85 ALT 16 AST 34 PROT 7.0 BILITOT 0.8 BILIDIR 0.0 LABALBU 4.1 Lipids: No results for input(s): CHOL, TRIG, HDL, LDLCALC in the last 72 hours. Invalid input(s): LDL Physical Exam: Vitals: BP 110/71 Pulse 64 Temp 97.7 F (36.5 C) (Temporal) Resp 15 Ht 5' 8" (1.727 m) Wt 204 lb (92.5 kg) SpO2 95% BMI 31.02 kg/m 24 hour intake/output: Intake/Output Summary (Last 24 hours) at 11/07/2018 1136 Last data filed at 11/07/2018 0700 Gross per 24 hour Intake 2656 ml Output 1460 ml Net 1196 ml Physical Exam Constitutional: He is oriented to person, place, and time. He appears well- developed and well-nourished. No distress. Pleasant obese male HENT: Head: Normocephalic. Eyes: Pupils are equal, round, and reactive to light. Neck: Normal range of motion. Cardiovascular: Normal rate, regular rhythm, normal heart sounds and intact distal pulses. Pulmonary/Chest: Effort normal and breath sounds normal. O2 per NC Abdominal: Soft. Bowel sounds are normal. He exhibits no distension. Musculoskeletal: Normal range of motion. He exhibits no edema. Neurological: He is alert and oriented to person, place, and time. Skin: Skin is warm and dry. Sternal incision clean and dry Psychiatric: He has a normal mood and affect. His behavior is normal. Assessment: Uncontrolled DM2 with roasterman use of insulin Stress hyperglycemia s/p CABG x 3 Plan: Discontinue insulin drip Start Humalog low dose SS TID ac POCT ac and hs Carb controlled diet Meds to beds for d/c medication needs Patient is counseled about plan Patient is counseled about blood sugar target Patient is counseled about effects of stress and surgery on blood sugar Patient is counseled about importance of DM control. Patient is counseled about risk of complications associatedwith uncontrolled Diabetes Patient is counseled about BS targets and A1C target. Patient is counseled about importance of diet, including eating consistent carbohydrate and protein Patient is counseled about importance of checking BS regularly and when to check Patient is counseled about risk and management of hypoglycemia Time spent with patient 45 minutes with more than 50% of that time in direct face to face counseling as documented in note. I have reviewed previous records and previous workup. Electronically signed by Gisela Sims MSN,RN,ACNS-BC, CDE Clinical Nurse Specialist and special educator on 11/07/2018 11:58 AM * Miguel Quintero, [facility] - 11/07/2018 11:21 AM EDT Patient Evaluation Form The patient is currently receiving Duoneb Q4WA Points 0 1 2 3 4 Points Totals Pulmonary Status (-/+) History Smoking history < 20 pack years Smoking history > 20 pack years Pulmonary Disorder (acute or chronic) Severe or Chronic with Exacerbation 2 Surgical Status No Surgery Trach PEG General Surgery Lower Abdominal Thoracic or Upper Abdominal Thoracic with Pulmonary Disorder 3 Chest X-ray Clear None Ordered Chronic Changes CXR results Pending Infiltrates, atelectasis, pleural effusion, or edema Infiltrates in more than one lobe Infiltrate + Atelectasis, &/or pleural effusion 2 Respiratory Pattern Regular, RR = 12-20 Increased, RR = 21-25 REEDER, irregular, or RR = 26-30 Decreased FEV1 or RR = 31-35 Severe SOB, used of of accessory muscles, or RR = > 35 0 Mental Status Alert, oriented, cooperative Confused, but follows commands Lethargic or un-able to follow commands Obtunded Comatose 0 Breath Sounds Clear to auscultation Decreased unilaterally or in bases only Decreased bilaterally Crackles or intermittent wheezes Wheezes 1 Cough Strong, spontaneous, & nonproductive Strong, spontaneous, & productive Weak, nonproductive Weak, productive or with wheezes No spontaneous cough or may require suctioning 0 Level of Activity Ambulatory Ambulatory with Assist Non-ambulatroy Paraplegic Quadriplegic 1 Triage 1 > 20 pts Triage 2 16-20 pts Triage 3 11- 15 pts Triage 4 6 - 10 pts Triage 5 0 - 5 pts TOTAL POINTS = 9 Triage Score = 4 PEF: 150 FVC: na FEV1: na FVE1/FVC: na Patient instructed and returned demonstration on use of MDI (with spacer, as appropriate) No Changing Therapy to Duoneb BID * Kahlil Roy, PT - 11/07/2018 10:57 AM EDT Physical Therapy Facility/Department: [facility] Initial Assessment NAME: Dominga Larkin : 1950 Date of Service: 11/07/2018 Discharge Recommendations: (anticipae need for home health as S.O. to have surgery next week and will be unable to asisst withIADLs) PT Equipment Recommendations Equipment Needed: No Assessment Body structures, Functions, Activity limitations: Decreased functional mobility ;Decreased ROM;Decreased endurance;Increased Pain Assessment: Pt with very good effort. Kumar limitation is inspiratory volume/ chest wall excursion. UE ROM good (including scapulae). Sit to stand min and amb 86' min. Supine to sit max as is often normal for POD #1. Good support from S.O., however she is to have surgery on Saturday. Suspect functionally that pt will be able to manage at home, but anticipate need for outside assistance (home health vs. family) Prognosis: Good Decision Making: Medium Complexity PT Education: Goals;PT Role;Plan of Care;Precautions Patient Education: functional limitations of sternal precautions REQUIRES PT FOLLOW UP: Yes Activity Tolerance Activity Tolerance: Patient limited by endurance;Treatment limited secondary to medical complications (free text) Patient Diagnosis(es): There were no encounter diagnoses. has a past medical history of Arthritis, CAD (coronary artery disease), Cerebral artery occlusion with cerebral infarction ([facility]), DM type 2 (diabetes mellitus, type 2) ([facility]), GERD (gastroesophageal reflux disease), Heart attack ([facility]), Hyperlipidemia, Hypertension, Irritable bowel syndrome, and NSTEMI (non-ST elevated myocardial infarction) ([facility]). has a past surgical history that includes Cardiac catheterization; eye surgery; Appendectomy; Coronary angioplasty (04/2012); Diagnostic Cardiac Vendor Management Associate Procedure (10/2014); and brain surgery. Restrictions Restrictions/Precautions Restrictions/Precautions: Weight Bearing, Surgical Protocols Required Braces or Orthoses?: No Upper Extremity Weight Bearing Restrictions Other: sternal precautions Position Activity Restriction Sternal Precautions: No Pushing, No Pulling, 10# Lifting Restrictions Sternal Precautions: yes Vision/Hearing Vision: Within Functional Limits(glasses) Hearing: Within functional limits Subjective General Chart Reviewed: Yes Patient assessed for rehabilitation services?: Yes Family / Caregiver Present: Yes("girlfriend" Rene) Diagnosis: CABGx3 Follows Commands: Within Functional Limits General Comment Comments: chest tube x1, Ritchie, 3L O2, IV infuser, telemetry Subjective Subjective: Pt in chair, generally good spirits. Notes he has marked limitation in function due to L4 "pinched nerve". S.O. present as well-she is in w/c and notes she is having surgery on 11/11 Pain Screening Patient Currently in Pain: Yes Pain Assessment Pain Assessment: 0-10 Pain Level: 6 Pain Type: (acute at chest-pt notes when he is still, his back pain is minimal. ) Vital Signs Patient Currently in Pain: Yes Orientation Orientation Overall Orientation Status: Within Normal Limits Social/Functional History Social/Functional History Lives With: Significant other(Rene) Type of Home: Mobile home Home Layout: One level Home Access: Ramped entrance Home Equipment: Rolling walker, Wheelchair-manual Receives Help From: Friend(s) ADL Assistance: Independent Homemaking Assistance: Needs assistance Homemaking Responsibilities: (pt states he does some IADLs, then is corrected by S.O. that she doesalmost everything.) Ambulation Assistance: Independent Transfer Assistance: Independent Active Personal Vehicle Advisor: Yes Mode of Transportation: Car Leisure & Hobbies: playing games on computer IADL Comments: S.O cooks, cleans. They both have w/c, but he usually walks in home. At store, uses motorized cart. Cognition Cognition Overall Cognitive Status: WNL Objective Observation/Palpation Posture: Fair Observation: spirometry 500 cc (last 50 in stoccato fashion) AROM RLE (degrees) RLE AROM: WFL AROM LLE (degrees) LLE AROM : WFL AROM RUE (degrees) RUE General AROM: limited shldr flex to 90 due to active infuser AROM LUE (degrees) LUE AROM : WFL Strength Other Other: hip extn isometrics good-, knee extn 4/, ankles 5/5, hip flex >3+/5, ABD good Motor Control Gross Motor?: WFL Sensation Overall Sensation Status: (L4 results in radicular pain, but no issue with numbness extending into R foot.) Bed mobility Sit to Supine: Maximum assistance Scooting: Minimal assistance Transfers Sit to Stand: Minimal Assistance Stand to sit: Contact guard assistance Comment: great forward weight shift Ambulation Ambulation?: Yes Ambulation 1 Surface: level tile Device: (Gypsy) Assistance: Contact guard assistance Distance: 86' Comments: slight diaphoresis, gait pattern itself rhythmical-limited steps to approx 10", but good heel strike. Balance Posture: Good Sitting - Static: Good Sitting - Dynamic: Good;- Standing - Static: Good;- Standing - Dynamic: Fair;+ Plan Plan Times per week: 5-6 Plan weeks: 10 days Current Treatment Recommendations: ROM, Balance Training, Gait Training, Transfer Training, Functional Mobility Training, Home Exercise Program Safety Devices Type of devices: Left in bed, Nurse notified, Call light within reach G-Code OutComes Score AM-PAC Score AM-PAC Inpatient Mobility Raw Score : 11 (11/07/181038) AM-PAC Inpatient T-Scale Score : 33.86 (11/07/181038) Mobility Inpatient CMS 0-100% Score: 72.57 (11/07/181038) Mobility Inpatient CMS G-Code Modifier : CL (11/07/181038) Goals Short term goals Time Frame for Short term goals: 10 days Short term goal 1: Bed mobility supv Short term goal 2: Transfer modif indep Short term goal 3: Amb 400' or minutes, w/o device, indep, RPE 1 or lower, back pain 3/10 or lower Short term goal 4: Indep P&C ex Short term goal 5: Indep managing secretions/ home walking program Short term goal 6: If logistically available, recommend amb 30' of 03/08 ramp, rail for balance only, supv Patient Goals Patient goals : be able to ride on my tractor soon Therapy Time Individual Concurrent Group Co-treatment Time In 958 Time Out 1037 Minutes 38 Patient s Physical Therapy Plan of Care supervision is transferred to [facility] Re[facility] Department Physical Therapist. Kahlil Roy PT * Lindsey Levy PA-C - 11/07/2018 10:35 AM EDT CRITICAL CARE DAILY PROGRESS NOTE Admit Date: 11/06/2018 PCP: Doug Love MD Subjective The patient is a 67 y.o. male with significant past medical history including prior NH, and CAD s/pDES 2017 who presented to [place] ED approximately 2 weeks ago with complaints of heart palpitations, and shortness of breath. He was found to be in atrial flutter, and further cardiac workup including a cardiac cath showed 3 vessel CAD. He was evaluated by CTS and is currently s/p CABG x3. He continues to be managed in the [facility] at this time. EVENTS OF LAST 24 HOURS: Patient is sitting up in the chair, awake and alert. He says he has no pain. He states he has some "pressure and discomfort" but it is tolerable. He denies SOB, and abdominalpain. INVASIVE LINES: CT x3 D# 1 Recent Labs 11/06/18 1233 PH 7.29* CVP: CVP (Mean): 14 mmHg IV: sodium chloride 50 mL/hr at 11/06/18 0606 sodium chloride 20 mL/hr at 11/06/18 1413 propofol Stopped (11/06/18 1415) nitroprusside (NIPRIDE) 50 mg in D5W infusion insulin (HUMAN R) non-weight based infusion 4 Units/hr (11/07/18 1000) dextrose EPINEPHrine infusion Stopped (11/06/18 7129) phenylephrine (KAYLEIGH-SYNEPHRINE) 50mg/250mL infusion Stopped (11/06/18 1414) MEDICATIONS Scheduled Meds: aspirin 325 mg Oral Daily furosemide 20 mg Intravenous Q12H carvedilol 3.125 mg Oral BID WC sodium chloride flush 10 mL Intravenous 2 times per day ceFAZolin (ANCEF) IVPB 2 g Intravenous Q8H sennosides-docusate sodium 1 tablet Oral BID polyethylene glycol 17 g Oral Daily pantoprazole 40 mg Intravenous Daily And sodium chloride (PF) 10 mL Intravenous Daily chlorhexidine 15 mL Mouth/Throat BID mupirocin Nasal BID atorvastatin 80 mg Oral Nightly ipratropium-albuterol 1 ampule Inhalation Q4H WA PRN meds: sodium chloride flush, potassium chloride, magnesium sulfate, calcium gluconate IVPB, acetaminophen, oxyCODONE-acetaminophen OR oxyCODONE-acetaminophen, morphine OR morphine, bisacodyl, ondansetron, potassium chloride, sodium chloride, nitroprusside (NIPRIDE) 50 mg in D5W infusion, glucose,dextrose, glucagon (rDNA), dextrose, insulin regular Objective PHYSICALEXAM: VITALS: BP 105/71 Pulse 65 Temp 97.7 F (36.5 C) (Temporal) Resp 17 Ht 5' 8" (1.727 m) Wt 204 lb (92.5 kg) SpO2 96% BMI 31.02 kg/m 24HRINTAKE/OUTPUT: Intake/Output Summary (Last 24 hours) at 11/07/2018 1035 Last data filed at 11/07/2018 0700 Gross per 24 hour Intake 2656 ml Output 1460 ml Net 1196 ml CURRENT PULSE OXIMETRY: SpO2: 96 % 24HR PULSE OXIMETRY RANGE: SpO2 Av.4 % Min: 90 % Max: 100 % Physical Exam Constitutional: He appears well-developed and well-nourished. No distress. Sitting up in chair, awake and alert HENT: Head: Normocephalic and atraumatic. Nose: Nose normal. Mouth/Throat: Oropharynx is clear and moist. No oropharyngeal exudate. Eyes: Pupils are equal, round, and reactive to light. Conjunctivae are normal. Right eye exhibits no discharge. Left eye exhibits no discharge. No scleral icterus. Cardiovascular: Normal rate. Exam reveals no gallop and no friction rub. No peripheral edema, DP pulses difficult to palpate Pulmonary/Chest: No stridor. No respiratory distress. He has no wheezes. No accessory muscle use, unlabored on nasal canula Abdominal: Soft. He exhibits no distension. There is no tenderness. Hypoactive bowel sounds, no obvious palpable hernias or HSM Musculoskeletal: No cyanosis, no clubbing, cap refill 2-3 seconds bilateral UE Skin: Skin is warm and dry. No rash noted. He is not diaphoretic. No erythema. No induration Psychiatric: He has a normal mood and affect. His behavior is normal. A&O x3 Vitals reviewed. Recent Labs 11/07/18 0456 11/07/18 0600 11/07/18 0702 11/07/18 0917 11/07/18 1010 POCGLU 130* 119* 114* 93 108* LABS: CBC: Recent Labs 11/06/18 1233 11/06/18173811/07/18 0007 WBC 18.6* 16.8* 11.3* HGB 11.1* 12.2* 11.5* HCT 32.4* 36.5* 33.5* MCV 89.8 90.5 89.7 PLT 218 192 122* BMP: Recent Labs 11/06/18 1233 11/06/18173811/07/18 0007 NA 139 142 140 K 3.6 2.8* 4.2 CL 106 109* 110* CO2 21* 19* 23 PHOS 3.6 -- -- BUN 32* 28* 28* CREATININE 1.70* 1.74* 1.56* MG 3.7* 2.8* 2.4* LIVER PROFILE: Recent Labs 11/04/18165811/06/18 1233 AST 34 -- ALT 16 -- LIPASE -- 111 BILIDIR 0.0 -- BILITOT 0.8 -- ALKPHOS 85 -- PT/INR: Recent Labs 11/04/18165811/06/18 1233 PROTIME 9.8 11.8 INR 0.9 1.1 APTT: Recent Labs 11/04/18165811/06/18 1233 APTT 22.1 21.1 UA: Recent Labs 11/04/181658 COLORU Light-Yellow LEUKOCYTESUR Negative UROBILINOGEN 2 BILIRUBINUR Negative GLUCOSEU Normal KETUA Negative RADIOLOGY: CXR Portable: Results for orders placed during the hospital encounter of 11/06/18 XR CHEST PORTABLE Narrative Patient Name: DOMINGA LARKIN ---Diagnostic Radiology--- Exam Date/Time 11/07/2018 07:01:32 EDT Exam CR Chest Portable Ordering Physician MD MIKE, JERRY Dorsey Accession Number [id number] CPT4 Codes 84676 () Reason For Exam Post op open heart,Shortness of breath. Report CHEST (Frontal View) History: Respiratory abnormality Comparison: 11/06/2018 Findings: Frontal portable chest view shows cardiomegaly with mild pulmonary congestion. There is linear small right basilar atelectasis. There has been sternotomy. [place]-Alex catheter, tracheal and enteric tubes have been removed. The tip of right IJ catheter sheath overlies the SVC. Bilateral chest tubes are noted. There is no appreciable pneumothorax, pleural effusion, or other significant interval change. Report Dictated on --- Final --- Dictated: 11/07/2018 8:58 am Dictating Physician: MD MICHAEL AHMAD Signed Date and Time: 11/07/2018 9:00 am Signed by: MD MICHAEL AHMAD Transcribed Date and Time: 11/07/2018 8:58 ASSESSMENT AND PLAN: Patient Active Problem List: Rotator cuff strain Coronary artery disease involving bo[place]te coronary artery of bo[place] heart without angina pectoris CAD (coronary artery disease) SDH (subdural hematoma) (HCC) Antiplatelet or antithrombotic long-term use Uncontrolled type 2 diabetes mellitus with complication (HCC) Bradycardia VT (ventricular tachycardia) (HCC) CAD in [place] artery 1. Multivessel CAD s/p CABG x3 on 11-06-18/ HTN/ HLD- CTS following, required epi immediate [id number] off, pain control, monitor CT output, continue ASA/ statin/ BB/ prophylactic ancef 2. Post-op vent management/ remote tobacco abuse- successfully extubated post-op and doing well on 3L NC- wean as tolerated, encourage deep breathing/ coughing/ use of IS/ duonebs, CXR shows pulm edema- scheduled lasix 3. Stress hyperglycemia/ Hx DM- blood glucose 108, endo following, insulin gtt with transition to SC insulin when appropriate, monitor blood glucose 4. Acute blood loss anemia- Hgb 11.5 <-- 12.2, monitor CT output/ H&H, no active bleeding, if Hgb < 7.5 transfuse PRBCs 5. Leukocytosis- likely reactive, WBC count 11.3 <-- 18.6, prophylactic ancef, monitor for S/ Sxof infection 6. FEN- cardiac diet, replace electrolytes PRN 7. DVT/ GI prophylaxis/ Hx GERD- SCDs, protonix Full Code Plan discussed and reviewed with Dr. Dominga Le Associated attestation - Dominga Le MD - 11/07/2018 5:04 PM EDT I have personally performed a face to face diagnostic evaluation on this patient along with ALEXEI. Labs, imaging studies and electronic medical record have been reviewed by me. This note documented by the ALEXEI reflects my history, exam and medical decision making as discussed with the ALEXEI . I have reviewed and agree with the care plan. Changes were made in the orders as necessary My history, exam, assessment and plan are as follows. Progressing nicely. No sig resp issues. Will follow peripherally. * Seth Cruz, MAKEUP EDITOR - INFRASTRUCTURE CONSULTANT - 11/07/2018 7:00 AM EDT Cardiothoracic Surgery Progress Note 11/07/2018 Subjective: Admit Date: 11/06/2018 Interval History: S/P CABG x 3 on 11/06/18 POD#1- no events over night-swan/a-line out already per nsg. Subjective: Up in chair. States having lots incisional chest pain with cough Objective: Vitals: BP 110/71 Pulse 64 Temp 97.7 F (36.5 C) (Temporal) Resp 15 Ht 5' 8" (1.727 m) Wt 204 lb (92.5 kg) SpO2 95% BMI 31.02 kg/m I/O: Date 11/07/18 0000 - 11/07/18 2352 Shift 9087-5961 6093-1862 5765-3360 24 Hour Total INTAKE P.O. 480 480 I.V.(mL/kg/hr) 902(1.2) 902 Shift Total(mL/kg) 1382(14.9) 1382(14.9) OUTPUT Urine(mL/kg/hr) 300(0.4) 300 Chest Tube 200 200 Shift Total(mL/kg) 500(5.4) 500(5.4) Weight (kg) 92.5 92.5 92.5 92.5 Weights: Patient Vitals for the past 96 hrs (Last 3 readings): Weight 11/06/18 0549 204 lb (92.5 kg) Labs: BMP: Recent Labs 11/06/18 1233 11/06/18 1739 11/07/18 0007 NA 139 142 140 K 3.6 2.8* 4.2 CL 106 109* 110* CO2 21* 19* 23 BUN 32* 28* 28* CREATININE 1.70* 1.74* 1.56* GLUCOSE 145* 181* 75 . CBC: Recent Labs 11/06/18 1739 11/07/18 0007 WBC 16.8* 11.3* HGB 12.2* 11.5* PLT 192 122* Hepatic: Recent Labs 11/04/18 1659 AST 34 ALT 16 BILITOT 0.8 ALKPHOS 85 INR: Lab Results Component Value Date PROTIME 11.8 11/06/2018 INR 1.1 11/06/2018 Films: CXR portable: Reviewed Physical Exam: Physical Exam Constitutional: He is oriented to person, place, and time. He appears well- developed and well-nourished. No distress. HENT: Head: Normocephalic and atraumatic. Eyes: Pupils are equal, round, and reactive to light. Neck: Normal range of motion. Neck supple. No JVD present. Cardiovascular: Normal rate, regular rhythm, normal heart sounds and intact distal pulses. Exam reveals no gallop and no friction rub. No murmur heard. Pulses: Dorsalis pedis pulses are 2+ on the right side, and 2+ on the left side. Pulmonary/Chest: Effort normal and breath sounds normal. No stridor. No respiratory distress. Pleural rub heard Abdominal: Soft. Bowel sounds are normal. He exhibits no distension. There is no tenderness. Musculoskeletal: Normal range of motion. He exhibits no edema or tenderness. Neurological: He is alert and oriented to person, place, and time. Skin: Skin is warm and dry. He is not diaphoretic. Mid sternal incision intact with no signs of infection Chest tube to -20 cm with serosang drainage. Ritchie to SD with clear debra urine. Psychiatric: He has a normal mood and affect. His behavior is normal. Judgment and thought content normal. Medications: Scheduled Meds: aspirin 325 mg Oral Daily furosemide 20 mg Intravenous Q12H carvedilol 3.125 mg Oral BID WC ipratropium-albuterol 1 ampule Inhalation BID insulin lispro 0-6 Units Subcutaneous TID WC sodium chloride flush 10 mL Intravenous 2 times per day ceFAZolin (ANCEF) IVPB 2 g Intravenous Q8H sennosides-docusate sodium 1 tablet Oral BID polyethylene glycol 17 g Oral Daily pantoprazole 40 mg Intravenous Daily And sodium chloride (PF) 10 mL Intravenous Daily chlorhexidine 15 mL Mouth/Throat BID mupirocin Nasal BID atorvastatin 80 mg Oral Nightly Continuous Infusions: sodium chloride 50 mL/hr at 11/06/18 0606 sodium chloride 20 mL/hr at 11/06/18 1413 propofol Stopped (11/06/18 1415) nitroprusside (NIPRIDE) 50 mg in D5W infusion dextrose EPINEPHrine infusion Stopped (11/06/18 6259) phenylephrine (KAYLEIGH-SYNEPHRINE) 50mg/250mL infusion Stopped (11/06/18 1414) Home Meds: Prior to Admission medications Medication Sig Start Date End Date Taking? Authorizing Provider Insulin Aspart (NOVOLOG FLEXPEN SC) Inject into the skin 4 times daily (before meals and nightly) SSI Yes Historical Provider, amLODIPine (NORVASC) 5 MG tablet Take 5 mg by mouth daily Yes Historical Provider, Cholecalciferol (D3-50 PO) Take by mouth daily Yes Historical Provider, amiodarone (CORDARONE) 200 MG tablet Take 200 mg by mouth daily Yes Historical Provider, losartan (COZAAR) 25 MG tablet Take 25 mg by mouth daily Yes Historical Provider, atorvastatin (LIPITOR) 80 MG tablet TAKE 1 TABLET EVERY DAY Patient taking differently: nightly 08/11/18 Yes Rahul Virgen MD glipiZIDE (GLUCOTROL) 5 MG tablet Take 5 mg by mouth daily 05/23/18 Yes Historical Provider, carvedilol (COREG) 3.125 MG tablet Take 3.125 mg by mouth 2 times daily (with meals) Yes HistoricalMD Eron chlorthalidone (HYGROTON) 25 MG tablet TAKE 1 TABLET BY MOUTH EVERY DAY 12/18/17 Yes Rahul Virgen MD lansoprazole (PREVACID) 15 MG delayed release capsule TAKE 1 CAPSULE BY MOUTH DAILY 05/20/17 Yes Lexie Tariq MAKEUP EDITOR - DIRECTOR MOTION PICTURE aspirin 81 MG tablet Take 81 mg by mouth daily Yes Historical Provider, Psyllium 500 MG CAPS Take by mouth daily Yes Historical Provider, Lactobacillus (ACIDOPHILUS PO) Take by mouth Yes Historical Provider, mupirocin (BACTROBAN) 2 % ointment Apply liberal amount of ointment on end of q tip and swab to each nostril the night before surgery 11/02/18 11/09/18 Claire Mcclendon, MAKEUP EDITOR - INFRASTRUCTURE CONSULTANT chlorhexidine (PERIDEX) 0.12 % solution Swish and spit 15mL the night prior to surgery 11/02/18 Alina Mcclendon APRN - INFRASTRUCTURE CONSULTANT docusate sodium (COLACE, DULCOLAX) 100 MG CAPS Take 100 mg by mouth daily 05/16/18 Matt Anthony MD nitroGLYCERIN (NITROSTAT) 0.[address] 1 tablet under the tongue every 5 minutes as needed for Chest pain 03/27/16 Rahul Virgen MD Diet: DIET CARDIAC; Problem List: Active Problems: Uncontrolled type 2 diabetes mellitus with complication (HCC) CAD in [place] artery Resolved Problems: * No resolved hospital problems. * Assessment and Plan: 1. CAD: Status post on CABGx3 (JUÁREZ-LAD, Ao-OM1 w/RSVG, Ao-RCA-PDA w/ RSVG, L- EVH) on 11/06/18 -EF: % pending DANIEL -Core Medication: [x]ASA [x]BB-added today [x] Statin [] ACEi/ARB-off home losartan -Anticoagulation: n/a -Invasive Lines:Central Line: Day #1- IJ introducer -swan and art line out already per nsg -Ritchie: Day# 1-discontinue later today 2. Resp Insufficiency (normal post op course): on 3-4 L NC-. CXR: Reviewed by Dr. Mckeon during rounds. Pulmonary congestion. Lasix 20 mg IVP BID started. Continue C&DB, Enc use of IS. Maintain chest tubes to waterseal 3. MATTIE: Cr 1.5 today trending down from 1.7. U/O 960 ml/last 24 hrs. Continue to monitor labs and I&O 4. Blood loss Anemia: Hgb:11.5 Stable. No s/s bleeding. Continue to monitor CBC 5. Consumptive Thrombocytopenia: Platelets:122 No s/s bleeding. Continue to monitor labs 6. Leukocytosis: WBC:11.3 Slowly trending down. Probable reactive. Afebrile. Continue to monitor labs 7. Hx Hypertension: SBP 100-113. Home coreg 3.125 mg BID started with parameters 8. DM-II/Stress Hyperglycemia: Insulin per endocrine 9. Post op pain: Continue prn's 10. GI/DVT prophylaxis: PPI/SCD/Teds 11. Disposition: Continue progressive care in [facility] Blood Conservation Initiative Log: -none noted to day * Sarah Juarez RCP - 11/06/2018 3:51 PM EDT [facility] Respiratory Care Department Progress Note Spontaneous Breathing Trial (SBT) Start: 2-3 min to Stabilize After 15 min After 30 min HR 82 78 SpO2 (%) 100 100 RR 26 24 VT (L) 578 678 Total RSBI (RR/VT in Liters) Pass SBT (RSBI must be?105 to pass) y NA y Comments (state reason if SBT failed): Additional data if requested: NIF = VC = Name of physician results were reported to: Dr Le Thank you for involving Respiratory in the care of this patient, * John Souza - 11/06/2018 3:05 PM EDT Occupational Therapy OT Hold Note OT eval and treat orders received. Pt had CABG x3 today and is still intubated and sedated. Will hold at this time and re-attempt as schedule permits. John Souza, S/OT documented in this encounter Hospital Course Note Discharge Summary Dominga Larkin : 1950 Age: 67 y.o. ADMIT DATE: 11/06/2018 DISCHARGE DATE: 11/13/2018 DISCHARGING SURGEON: Jerry Mckeon MD Office Number: [phone] PRIMARY CARE PHYSICIAN: Doug Love MD VISIT STATUS: Admission CODE STATUS: Full Code DISCHARGE DIAGNOSES: CAD in [place] artery mS/P CABG x 3 Uncontrolled type 2 diabetes mellitus with complication HOSPITAL COURSE: The patient 67 y.o. male who we were asked to see in consultation, was found to have CAD after a complete comprehensive medical workup. Based upon his presentation and comorbidities it was felt that he would benefit from surgical intervention. He was taken to the operating room for CABG (please see the operative note for specific details). It was performed in an uncomplicated manner and he was transferred to the Intensive Care Unit postoperatively where he was extubated within a relatively short period of time. Over the next couple of days his surgical tubes, lines, and catheters we (more content not included)... Chief Complaint and Reason for Visit Chief Complaint 9 M FU CLAUDICATION BILAT LOWER EXT, S/P CABG SPONDYLOLISTHESIS. RX HERE Reason for Visit Cardiomyopathy Postoperative atrial fibrillation Atherosclerotic heart disease of [place] coronary artery without angina pectoris Essential hypertension History of coronary artery bypass graft Pure hypercholesterolemia Stented coronary artery Chief Complaint 9 M FU CLAUDICATION BILAT LOWER EXT, S/P CABG SPONDYLOLISTHESIS. RX HERE HOSPITAL AIDE, EST. CARE, WHG PT, CONSENT ONLY Reason for Visit Cardiomyopathy Postoperative atrial fibrillation Atherosclerotic heart disease of [place] coronary artery without angina pectoris Essential hypertension History of coronary artery bypass graft Pure hypercholesterolemia Stented coronary artery Cardiomyopathy Health care maintenance BPH (benign prostatic hyperplasia) Essential hypertension Type 2 diabetes mellitus Chief Complaint 9 M FU CLAUDICATION BILAT LOWER EXT, S/P CABG SPONDYLOLISTHESIS. RX HERE HOSPITAL AIDE, EST. CARE, WHG PT, CONSENT ONLY ASHD Reason for Visit Cardiomyopathy Postoperative atrial fibrillation Atherosclerotic heart disease of [place] coronary artery without angina pectoris Essential hypertension History of coronary artery bypass graft Pure hypercholesterolemia Stented coronary artery Cardiomyopathy Health care maintenance BPH (benign prostatic hyperplasia) Essential hypertension Type 2 diabetes mellitus Chief Complaint 9 M FU CLAUDICATION BILAT LOWER EXT, S/P CABG SPONDYLOLISTHESIS. RX HERE HOSPITAL AIDE, EST. CARE, WHG PT, CONSENT ONLY ASHD 6 M FU CBC/VIT D Reason for Visit Cardiomyopathy Postoperative atrial fibrillation Atherosclerotic heart disease of [place] coronary artery without angina pectoris Essential hypertension History of coronary artery bypass graft Pure hypercholesterolemia Stented coronary artery Cardiomyopathy Health care maintenance BPH (benign prostatic hyperplasia) Essential hypertension Type 2 diabetes mellitus History of subdural hematoma Chief Complaint 6 M FU 3 M FU LUMBAR RX HERE Reason for Visit Cardiomyopathy Postoperative atrial fibrillation Atherosclerotic heart disease of [place] coronary artery without angina pectoris Essential hypertension History of coronary artery bypass graft Pure hypercholesterolemia Stented coronary artery Hypothyroidism Essential hypertension Type 2 diabetes mellitus Chief Complaint 6 M FU 3 M FU LUMBAR RX HERE MALIGNANT NEOPLASM OF THYROID GLAND Reason for Visit Cardiomyopathy Postoperative atrial fibrillation Atherosclerotic heart disease of [place] coronary artery without angina pectoris Essential hypertension History of coronary artery bypass graft Pure hypercholesterolemia Stented coronary artery Hypothyroidism Essential hypertension Type 2 diabetes mellitus Chief Complaint 3 M FU LUMBAR RX HERE MALIGNANT NEOPLASM OF THYROID GLAND 8 M FU 3 M FU Reason for Visit Essential hypertensi on Hypothyroidism Type 2 diabetes mellitus Claudication of calf muscles Low back pain History of subdural hematoma Essential hypertension Hypothyroidism Type 2 diabetes mellitus Chief Complaint 3 M FU BILATERAL CALF CLAUDICATION 6 M FU HEAD TRAUMA CONSULT-PERIPHERAL VASCULAR DISEASE 4 M FU 6 WEEK FU 3 M FU [facility]/PAIN IN BILAT KNEES BILATERAL KNEE PAIN RX HERE Reason for Visit Essential hypertensi on Hypothyroidism Type 2 diabetes mellitus Cardiomyopathy History of subdural hematoma Postoperative atrial fibrillation Atherosclerotic heart disease of [place] coronary artery without angina pectoris Claudication of calf muscles Essential hypertension History of coronary artery bypass graft Pure hypercholesterolemia Stented coronary artery Atherosclerosis of both lower extremities with intermittent claudication Claudication of calf muscles Low back pain Peripheral arterial disease History of subdural hematoma Atherosclerosis of both lower extremities with intermittent claudication Bilateral knee pain Essential hypertension Hypothyroidism Insulin dependent diabetes mellitus Chief Complaint 4 M FU 6 WEEK FU 3 M FU [facility]/PAIN IN BILAT KNEES Low back pain, unspecified BILATERAL KNEE PAIN RX HERE 3 M FU Reason for Visit Claudication of calf muscles Low back pain Peripheral arterial disease History of subdural hematoma Atherosclerosis of both lower extremities with intermittent claudication Bilateral knee pain Essential hypertension Hypothyroidism Insulin dependent diabetes mellitus Essential hypertension Hypothyroidism Type 2 diabetes mellitus Chief Complaint 6 WEEK FU 3 M FU [facility]/PAIN IN BILAT KNEES Low back pain, unspecified BILATERAL KNEE PAIN RX HERE 3 M FU CHEST PAIN OTHER Reason for Visit Atherosclerosis of b oth lower extremities with intermittent claudication Bilateral knee pain Essential hypertension Hypothyroidism Insulin dependent diabetes mellitus Essential hypertension Hypothyroidism Type 2 diabetes mellitus Chief Complaint BILATERAL KNEE PAIN RX HERE 3 M FU CHEST PAIN OTHER 4 M FU Reason for Visit Essential hypertensi on Hypothyroidism Type 2 diabetes mellitus Claudication of calf muscles Low back pain Peripheral arterial disease History of subdural hematoma Chief Complaint 3 M FU CHEST PAIN OTHER 4 M FU 3 m fu Reason for Visit Essential hypertensi on Hypothyroidism Type 2 diabetes mellitus Claudication of calf muscles Low back pain Peripheral arterial disease History of subdural hematoma Essential hypertension Hypothyroidism Type 2 diabetes mellitus Chief Complaint Admit Date 6 M FU May 13, 2024 12: 53pm 3 M FU June 03, 2024 12:5 7pm OTHER FORMS OF DYSPNEA June 12, 2024 12:13pm 3 M FU September 09, 2024 2:44 pm Reason for Visit Admit Date Bradycardia May 13, 2024 12: 53pm CAD (coronary artery disease) April 12:53pm Cardiomyopathy May 13, 2024 12: 53pm Diabetes May 13, 2024 12: 53pm Dyslipidemia May 13, 2024 12: 53pm Hypertension May 13, 2024 12: 53pm Peripheral arterial disease May 13, 2024 12:53pm History of subdural hematoma May 13, 2024 12:53pm BPH (benign prostatic hyperplasia) June 03, 2024 12:57pm CAD (coronary artery disease) June 03, 2024 12:57pm Essential hypertension June 03, 2024 1 2:57pm Hypothyroidism June 03, 2024 12:5 7pm Type 2 diabetes mellitus June 03, 2024 12:57pm Chief Complaint Admit Date 3 M FU June 03, 2024 12:5 7pm OTHER FORMS OF DYSPNEA June 12, 2024 12:13pm 3 M FU September 09, 2024 2:44 pm EORDERS September 11, 2024 2:02 pm Reason for Visit Admit Date BPH (benign prostatic hyperplasia) June 03, 2024 12:57pm CAD (coronary artery disease) June 03, 2024 12:57pm Essential hypertension June 03, 2024 1 2:57pm Hypothyroidism June 03, 2024 12:5 7pm Type 2 diabetes mellitus June 03, 2024 12:57pm Sweats, sweating, excessive September 09, 2 025 2:44pm BPH (benign prostatic hyperplasia) September 09, 2024 2:44pm Hypertension September 09, 2024 2:44 pm Hypothyroidism September 09, 2024 2:44 pm Type 2 diabetes mellitus September 09, 2024 2:44pm Chief Complaint Admit Date 3 M FU September 09, 2024 2:44 pm EORDERS September 11, 2024 2:02 pm 6 M FU October 28, 2024 1:28pm Reason for Visit Admit Date Sweats, sweating, excessive September 09, 2 025 2:44pm BPH (benign prostatic hyperplasia) September 09, 2024 2:44pm Hypertension September 09, 2024 2:44 pm Hypothyroidism September 09, 2024 2:44 pm Type 2 diabetes mellitus September 09, 2024 2:44pm CAD (coronary artery disease) October 28, 2024 1:28pm Cardiomyopathy October 28, 2024 1:28pm Diabetes October 28, 2024 1:28pm Dyslipidemia October 28, 2024 1:28pm Hypertension October 28, 2024 1:28pm Peripheral arterial disease October 1:28pm History of subdural hematoma October 282024 1:28pm Chief Complaint Admit Date 3 M FU September 09, 2024 2:44 pm EORDERS September 11, 2024 2:02 pm 6 M FU October 28, 2024 1:28pm INT LAB ORDER November 17, 2024 1:31pm Chief Complaint Admit Date 3 M FU September 09, 2024 2:44 pm EORDERS September 11, 2024 2:02 pm 6 M FU October 28, 2024 1:28pm INT LAB ORDER November 17, 2024 1:31pm 8 MO FU December 03, 2024 1: 32pm 3 M FU December 18, 2024 2 :02pm Reason for Visit Admit Date Sweats, sweating, excessive September 09, 2 025 2:44pm BPH (benign prostatic hyperplasia) September 09, 2024 2:44pm Hypertension September 09, 2024 2:44 pm Hypothyroidism September 09, 2024 2:44 pm Type 2 diabetes mellitus September 09, 2024 2:44pm CAD (coronary artery disease) October 28, 2024 1:28pm Cardiomyopathy October 28, 2024 1:28pm Diabetes October 28, 2024 1:28pm Dyslipidemia October 28, 2024 1:28pm Hypertension October 28, 2024 1:28pm Peripheral arterial disease October 1:28pm History of subdural hematoma October 282024 1:28pm Muscle cramps December 03, 2024 1: 32pm Low back pain December 03, 2024 1: 32pm History of subdural hematoma November 1:32pm CAD (coronary artery disease) December 182024 2:02pm Chronic back pain December 18, 2024 2 :02pm Hypertension December 18, 2024 2 :02pm Hypothyroidism December 18, 2024 2 :02pm Leg wound, right December 18, 2024 2 :02pm Type 2 diabetes mellitus December 18, 025 2:02pm Additional Source Comments (unrecognized sect ion and content) No Status Records FoundNo Status Records FoundNo Status Records FoundNo Status Records FoundNo Status Records FoundNo Status Records FoundNo Status Records FoundNo Status Records Found INFORMATION SOURCE (unrecogn ized section and content) DATE CREATED AUTHOR 05/06/2018 [facility] DATE CREATED AUTHOR AUTHOR'S ORGANIZ ATION 09/15/2019 [facility] DATE CREATED AUTHOR AUTHOR'S ORGANIZ ATION 09/16/2019 [facility] DATE CREATED AUTHOR AUTHOR'S ORGANIZ ATION 10/06/2020 [facility] DATE CREATED AUTHOR AUTHOR'S ORGANIZ ATION 08/07/2021 [facility] DATE CREATED AUTHOR AUTHOR'S ORGANIZ ATION 03/31/2022 [facility] DATE CREATED AUTHOR AUTHOR'S ORGANIZ ATION 08/22/2024 [facility] DATE CREATED AUTHOR AUTHOR'S ORGANIZ ATION 01/07/2025 [place] Reason for Visit (unrecogniz ed section and content) Reason Comments PT Discharge Status Reason Specialty Diagnoses / Procedures Referred By Contact Referred To Contact Authorized Physical Therapy / PHYSICAL THERAPY Diagnoses Aquatic Therapy PTHC Order Procedures NEW RS PT AQUATIC ORTHO WALK Allen Briceno [address] [place] [address] Camila Samson, PT [address] [place] [address] Reason Comments Physical Therapy Reason Comments PT Progress Note Reason Comments Trauma Reason Comments PT Eval Patient Education Reason Comments cancel appt. Source Comments (unrecognize d section and content) In the event this informatio n is protected by the Federal Confidentiality of Alcohol and Drug Abuse Patient Records regulations: The Federal rules restrict any use of the information to criminally investigate or prosecute any alcohol or drug abuse patient.[facility] the event this information is protected by the Federal Confidentiality of Alcohol and Drug Abuse Patient Records regulations: The Federal rules restrict any use of the information to criminally investigate or prosecute any alcohol or drug abuse patient.[facility] the event this information is protected by the Federal Confidentiality of Alcohol and Drug Abuse Patient Records regulations: The Federal rules restrict any use of the information to criminally investigate or prosecute any alcohol or drug abuse patient.[facility] the event this information is protected by the Federal Confidentiality of Alcohol and Drug Abuse Patient Records regulations: The Federal rules restrict any use of the information to criminally investigate or prosecute any alcohol or drug abuse patient.[facility] the event this information is protected by the Federal Confidentiality of Alcohol and Drug Abuse Patient Records regulations: The Federal rules restrict any use of the information to criminally investigate or prosecute any alcohol or drug abuse patient.[facility] the event this information is protected by the Federal Confidentiality of Alcohol and Drug Abuse Patient Records regulations: The Federal rules restrict any use of the information to criminally investigate or prosecute any alcohol or drug abuse patient.[facility] the event this information is protected by the Federal Confidentiality of Alcohol and Drug Abuse Patient Records regulations: The Federal rules restrict any use of the information to criminally investigate or prosecute any alcohol or drug abuse patient.[facility] the event this information is protected by the Federal Confidentiality of Alcohol and Drug Abuse Patient Records regulations: The Federal rules restrict any use of the information to criminally investigate or prosecute any alcohol or drug abuse patient.[facility] the event this information is protected by the Federal Confidentiality of Alcohol and Drug Abuse Patient Records regulations: The Federal rules restrict any use of the information to criminally investigate or prosecute any alcohol or drug abuse patient.[facility] the event this information is protected by the Federal Confidentiality of Alcohol and Drug Abuse Patient Records regulations: The Federal rules restrict any use of the information to criminally investigate or prosecute any alcohol or drug abuse patient.[facility] the event this information is protected by the Federal Confidentiality of Alcohol and Drug Abuse Patient Records regulations: The Federal rules restrict any use of the information to criminally investigate or prosecute any alcohol or drug abuse patient.[facility] the event this information is protected by the Federal Confidentiality of Alcohol and Drug Abuse Patient Records regulations: The Federal rules restrict any use of the information to criminally investigate or prosecute any alcohol or drug abuse patient.[facility] Care Teams (unrecognized sec tion and content) Worship Leader Relationship Specialty Start Date End Date Doug Love MD [address] [place] [id number] PCP - General Family Medicine 03/19/17 Worship Leader Relationship Specialty Start Date End Date Doug Love MD [address] [place] [phone] PCP - General Family Medicine 03/19/17 Worship Leader Relationship Specialty Start Date End Date Doug Love MD [address] [place] [id number] PCP - General Family Medicine 03/19/17 Worship Leader Relationship Specialty Start Date End Date Doug Love MD [address] [place] [id number] PCP - General Family Medicine 03/19/17 Worship Leader Relationship Specialty Start Date End Date Doug Love MD [address] [place] [id number] PCP - General Family Medicine 03/19/17 Team Status: Active Member Role Status Dates Dr. Doug Love MD Family Provider Active Dr. Shan Nazario MD Primary Care Provider Active Team Status: Inactive Member Role Status Dates Dr. Doug Love MD Referring Provider Active Sachi Burgos PA, PA Attending Provider Active Dr. Shan Nazario MD Primary Care Provider Active Team Status: Inactive Member Role Status Dates Dr. Shan Nazario MD Primary Care P rovider, Attending Provider, Referring Provider Active Team Status: Inactive Member Role Status Dates Dr. Shan Nazario MD Primary Care Provider Active LUIS BOLTON Attending Provider, Referring Provide r Active Team Status: Inactive Member Role Status Dates Dr. Shan Nazario MD Primary Care Provider Active ERIN JUAREZ Attending Provider, Referring Provide r Active Worship Leader Relationship Specialty Start Date End Date Doug Love MD [address] [place] [phone] PCP - General 03/19/17 Team Status: Inactive Member Role Status Dates Dr. Shan Nazario MD Primary Care Provider, Refer ring Provider Active Dr. Lg Langford MD Attending Provider Active Team Status: Inactive Member Role Status Dates Dr. Shan Nazario MD Primary Care Provider, Atten ding Provider Active Worship Leader Relationship Specialty Start Date End Date Doug Love MD [address] [place] [id number] PCP - General 03/19/17 Team Status: Inactive Member Role Status Dates Dr. Shan Nazario MD Primary Care Provider, Refer ring Provider Active Sachi Burgos PA, PA Attending Provider Active Team Status: Active Member Role Status Dates Dr. Shan Nazario MD Primary Care Provider Active Dr. Fabiana Pérez MD Attending Provider Active Dr. Lg Langford MD Referring Provider Active Team Status: Inactive Member Role Status Dates Dr. Shan Nazario MD Primary Care Provider, Refer ring Provider Active DELFINA Randolph Attending Provider Active Team Status: Inactive Member Role Status Dates Dr. Shan Nazario MD Primary Care Provider Active Dr. Lg Langford MD Attending Provider, Referring Provider Active Team Status: Active Member Role Status Dates Dr. Shan Nazario MD Primary Care P rovider, Attending Provider, Referring Provider Active Team Status: Inactive Member Role Status Dates Dr. Shan Nazario MD Primary Care Provider Active Sachi Burgos PA, PA Attending Provider, Referr ing Provider Active Team Status: Inactive Member Role Status Dates Dr. Shan Nazario MD Primary Care Provider Active Dr. Fabiana Hernández DO Emergency Provider Active Team Status: Inactive Member Role Status Dates Dr. Shan Nazario MD Primary Care Provider Active Dr. Fabiana Hernández , Attending Provider, Emergency P alphonso Active Worship Leader Relationship Specialty Start Date End Date Doug Love MD [address] [place] [id number] PCP - General 03/19/17 Worship Leader Relationship Specialty Start Date End Date PaulokyraShan capps [address] [place] [address] PCP - General Internal Medicine 07/19/23 Worship Leader Relationship Specialty Start Date End Date Doug Love MD [address] [place] [phone] PCP - General 03/19/17 07/18/23 PauloumaLuis Angeldilangorge Du [address] [place] [address] PCP - General Internal Medicine 07/19/23 Worship Leader Relationship Specialty Start Date End Date PauloumaShan [address] [place] [address] PCP - General Internal Medicine 07/19/23 Worship Leader Relationship Specialty Start Date End Date PaulokyraShan capps [address] [place] [address] PCP - General Internal Medicine 07/19/23 Team Status: Active Member Role/Relationship Status Dates Dr. Shan Nazario MD Primary Care Provider Active Team Status: Inactive Member Role/Relationship Status Dates Dr. Shan Nazario MD Primary Care Provider Active Start: May 13, 2024 End: May 13, 2024 Dr. Shan Nazario MD Referring Provider Active Start: May 13, 2024 End: May 13, 2024 Dr. Esteban Yeboah MD Attending Provider Active Start: May 13, 2024 End: May 13, 2024 Team Status: Inactive Member Role/Relationship Status Dates Dr. Shan Nazario MD Primary Care Provider Active Start: June 03, 2024 End: June 03, 2024 Dr. Shan Nazario MD Attending Provider Active Start: June 03, 2024 End: June 03, 2024 Dr. Shan Nazario MD Referring Provider Active Start: June 03, 2024 End: June 03, 2024 Team Status: Inactive Member Role/Relationship Status Dates Dr. Shan Nazario MD Primary Care Provider Active Start: June 12, 2024 End: June 12, 2024 Dr. Esteban Yeboah MD Attending Provider Active Start: June 12, 2024 End: June 12, 2024 Dr. Esteban Yeboah MD Referring Provider Active Start: June 12, 2024 End: June 12, 2024 Team Status: Active Member Role/Relationship Status Dates Dr. Shan Nazario MD Primary Care Provider Active Start: June 12, 2024 Dr. Esteban Yeboah MD Attending Provider Active Start: June 12, 2024 Team Status: Inactive Member Role/Relationship Status Dates Dr. Shan Nazario MD Primary Care Provider Active Start: September 09, 2024 End: September 09, 2024 Dr. Shan Nazario MD Attending Provider Active Start: September 09, 2024 End: September 09, 2024 Dr. Shan Nazario MD Referring Provider Active Start: September 09, 2024 End: September 09, 2024 Team Status: Inactive Member Role/Relationship Status Dates Dr. Shan Nazario MD Primary Care Provider Active Start: June 03, 2024 End: June 03, 2024 Dr. Shan Nazario MD Attending Provider Active Start: June 03, 2024 End: June 03, 2024 Dr. Shan Nazario MD Referring Provider Active Start: June 03, 2024 End: June 03, 2024 Team Status: Inactive Member Role/Relationship Status Dates Dr. Shan Nazario MD Primary Care Provider Active Start: June 12, 2024 End: June 12, 2024 Dr. Esteban Yeboah MD Attending Provider Active Start: June 12, 2024 End: June 12, 2024 Dr. Esteban Yeboah MD Referring Provider Active Start: June 12, 2024 End: June 12, 2024 Team Status: Active Member Role/Relationship Status Dates Dr. Shan Nazario MD Primary Care Provider Active Start: June 12, 2024 Dr. Esteban Yeboah MD Attending Provider Active Start: June 12, 2024 Team Status: Inactive Member Role/Relationship Status Dates Dr. Shan Nazario MD Primary Care Provider Active Start: September 09, 2024 End: September 09, 2024 Dr. Shan Nazario MD Attending Provider Active Start: September 09, 2024 End: September 09, 2024 Dr. Shan Nazario MD Referring Provider Active Start: September 09, 2024 End: September 09, 2024 Team Status: Inactive Member Role/Relationship Status Dates Dr. Shan Nazario MD Primary Care Provider Active Start: September 11, 2024 End: September 11, 2024 Dr. Shan Nazario MD Attending Provider Active Start: September 11, 2024 End: September 11, 2024 Dr. Shan Nazario MD Referring Provider Active Start: September 11, 2024 End: September 11, 2024 Team Status: Inactive Member Role/Relationship Status Dates Dr. Shan Nazario MD Primary Care Provider Active Start: September 09, 2024 End: September 09, 2024 Dr. Shan Nazario MD Attending Provider Active Start: September 09, 2024 End: September 09, 2024 Dr. Shan Nazario MD Referring Provider Active Start: September 09, 2024 End: September 09, 2024 Team Status: Inactive Member Role/Relationship Status Dates Dr. Shan Nazario MD Primary Care Provider Active Start: September 11, 2024 End: September 11, 2024 Dr. Shan Nazario MD Attending Provider Active Start: September 11, 2024 End: September 11, 2024 Dr. Shan Nazario MD Referring Provider Active Start: September 11, 2024 End: September 11, 2024 Team Status: Inactive Member Role/Relationship Status Dates Dr. Shan Nazario MD Primary Care Provider Active Start: October 28, 2024 End: October 28, 2024 Dr. Shan Nazario MD Referring Provider Active Start: October 28, 2024 End: October 28, 2024 Dr. Esteban Yeboah MD Attending Provider Active Start: October 28, 2024 End: October 28, 2024 Team Status: Active Member Role/Relationship Status Dates Dr. Shan Nazario MD Primary care physician Activ e Team Status: Inactive Member Role/Relationship Status Dates Dr. Shan Nazario MD Primary care physician Activ e Start: September 09, 2024 End: September 09, 2024 Dr. Shan Nazario MD Attending physician Active Start: September 09, 2024 End: September 09, 2024 Dr. Shan Nazario MD Referring Provider Active Start: September 09, 2024 End: September 09, 2024 Team Status: Inactive Member Role/Relationship Status Dates Dr. Shan Nazario MD Primary care physician Activ e Start: September 11, 2024 End: September 11, 2024 Dr. Shan Nazario MD Attending physician Active Start: September 11, 2024 End: September 11, 2024 Dr. Shan Nazario MD Referring Provider Active Start: September 11, 2024 End: September 11, 2024 Team Status: Inactive Member Role/Relationship Status Dates Dr. Shan Nazario MD Primary care physician Activ e Start: October 28, 2024 End: October 28, 2024 Dr. Shan Nazario MD Referring Provider Active Start: October 28, 2024 End: October 28, 2024 Dr. Esteban Yeboah MD Attending physician Active Start: October 28, 2024 End: October 28, 2024 Team Status: Inactive Member Role/Relationship Status Dates Dr. Shan Nazario MD Primary care physician Activ e Start: November 17, 2024 End: November 17, 2024 Dr. Esteban Yeboah MD Attending physician Active Start: November 17, 2024 End: November 17, 2024 Dr. Esteban Yeboah MD Referring Provider Active Start: November 17, 2024 End: November 17, 2024 Team Status: Inactive Member Role/Relationship Status Dates Dr. Shan Nazario MD Primary care physician Activ e Start: December 03, 2024 End: December 03, 2024 Dr. Shan Nazario MD Referring Provider Active Start: December 03, 2024 End: December 03, 2024 Dr. Lg Langford MD Attending physician Active Start: December 03, 2024 End: December 03, 2024 Team Status: Inactive Member Role/Relationship Status Dates Dr. Shan Nazario MD Primary care physician Activ e Start: December 18, 2024 End: December 18, 2024 Dr. Shan Nazario MD Attending physician Active Start: December 18, 2024 End: December 18, 2024 Dr. 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 20 tablet 0 06/16/2021 06/23/2021 Scheduled Active and Recently Administ ered Medications (unrecognized section and content) Medication Order 06/15/2021 06/16/2021 06/17/2021 acetaminophen (TYLENOL) tablet 1,000 mg (COMPLETED) 1,000 mg, Oral, ONCE, 1 dose, On Sat06/16/21 at 1200, Maximum dose of acetaminophen is 4000 mg from all sources in 24 hours. Do not administer if patient has taken tylenol <4 hours earlier. Do not give if contraindicated ie. patient has active liver disease or cirrhosis., Pre-op (day of surgery) 1243 (Given - Provider: Brittaney Yousif RN) acidophilus probiotic capsule 1 capsule 1 capsule, Oral, DAILY, First dose (after last reorder) on Sat06/17/21 at 0900, Until Discontinued 811 (Given - Provid er: Karrie Godinez RN) atorvastatin (LIPITOR) tablet 80 mg 80 mg, Oral, DAILY, First dose on Sat06/16/21 at 2014, Until Discontinued 2199 (Given - Provider: Kailyn Osman RN) 811 (Given - Provider: Karrie Godinez RN) carvedilol (COREG) tablet 6.25 mg 6.25 mg, Oral, 2 TIMES DAILY WITH MEALS, First dose on Sat06/16/21 at 2014, Until Discontinued, Administer with food to minimize the risk of orthostatic hypotension 2158 (Given - Provider: Kailyn Osman RN - Comment: BP:125/73 HR:62) 811 (Given - Provider: Karrie Godinez RN)1700 (Due) celecoxib (CELEBREX) capsule 400 mg (COMPLETED) 400 mg, Oral, ONCE, 1 dose, On Sat06/16/21 at 1200, Pre-op (day of surgery) 1243 (Given - Provider: Brittaney Yousif RN) empagliflozin (JARDIANCE) tablet TABS 10 mg 10 mg, Oral, DAILY BEFORE BREAKFAST, First dose on Sat06/17/21 at 0700, Patient own med. May use after verified by pharmacy. 0810 (Not Given - Provider: Karrie Godinez RN - Reason: Medication not available) famotidine (PEPCID) tablet 20 mg (COMPLETED) 20 mg, Oral, ONCE, 1 dose, On Sat06/16/21 at 1200, Pre-op (day of surgery) 1243 (Given - Provider: Brittaney Yousif RN) gabapentin (NEURONTIN) capsule 100 mg (COMPLETED) 100 mg, Oral, ONCE, 1 dose, On Sat06/16/21 at 1200, For Age >69, or Low GFR, Pre-op (day of surgery) 1243 (Given - Provider: Brittaney Yousif RN) insulin glargine (LANTUS) injection vial 20 Units 20 Units, SubCUTAneous, NIGHTLY, First dose on Sat06/16/21 at 2100, Until Discontinued 2199 (Given - Provider: Kailyn Osman RN - Comment: B) 2100 (Due) insulin lispro (HUMALOG) injection vial 9 Units 9 Units, SubCUTAneous, 3 TIMES DAILY WITH MEALS, First dose on 06/17/21 at 0800, Until Discontinued, Substituted for Insulin aspart (NOVOLOG). 0915 (Given - Provid er: Karrie Godinez RN)1042 (Given - Provider: Karrie Godinez RN)1700 (Due) isosorbide mononitrate (IMDUR) extended release tablet 60 mg 60 mg, Oral, DAILY BEFORE BREAKFAST, First dose on Sat06/17/21 at 0700, Until Discontinued, Do not crush or chew. 07 (Given - Provid er: Kailyn Osman RN - Comment: BP:152/90) pantoprazole (PROTONIX) tablet 20 mg 20 mg, Oral, DAILY BEFORE BREAKFAST, First dose on Sat06/16/21 at 2015, Until Discontinued, Do not crush or break. Substituted for Lansoprazole (PREVACID). 2199 (Given - Provider: Kailyn Osman RN) 0705 (Given - Provider: Kailyn Osman RN) sodium chloride flush 0.9 % injection 5-40 mL 5-40 mL, IntraVENous, EVERY 12 HOURS SCHEDULED (2 times per day), First dose on Sat06/16/21 at 2100, Until Discontinued, For Line Patency: Peripheral IV = 5 mL; Midline or Central Line = 10 mL/lumen. If following IV push medication, administer flush at same rate as the IV push. Flush volume is determined by type of infusion therapy being given. For non-viscous solutions use: Peripheral IV = 5 mL Midline or Central Line = 10 mL/lumen For viscous solutions (i.e. blood components, parenteral nutrition, contrast media, or after obtaining blood sample) use: Peripheral IV = 10 mL Midline or Central Line = 20 mL/lumen, Post-op 2201 (Given - Provider: Kailyn Osman RN) 0811 (Not Given - Provider: Karrie Godinez RN - Reason: Order parameters not met)2100 (Due) Continuous Medication Order 06/15/2021 06/16/2021 06/17/2021 dextrose 5 % and 0.45 % NaCl with KCl 20 mEq infusion IntraVENous, at 100 mL/hr, CONTINUOUS, Starting on Sat06/16/21 at 2015, Post-op 2158 (New Bag - Provider: Kailyn Osman RN) PRN Medication Order 06/15/2021 06/16/2021 06/17/2021 0.9 % sodium chloride infusion IntraVENous, at 5-250 mL/hr, PRN, if patient receiving piggyback infusions and maintenance fluids are not ordered OR KVO fluids to protect IV site / prevent frequent line interruptions/ long duration, Starting on Sat06/16/21 at 1950, For piggyback infusion, administer at same rate as piggyback for a total of 25 mL. Enter 25 mL into dose field and piggyback rate into rate field of order. If piggyback is infusing at a rate less than 100 mL/hr, enter 25 mL into dose field and 100 mL/hr into rate field of order. For KVO fluids, enter rate of 20 mL/hr or less into rate field of order., Post-op dextrose 5 % solution 100 mL/hr, IntraVENous, PRN, Low blood sugar, Starting on Sat06/16/21 at 1950, Start infusion following administration of dextrose 50% or glucagon. dextrose 50 % IV solution 12.5 g, IntraVENous, PRN, Starting on Sat06/16/21 at 1950, Until Discontinued, Low blood sugar, Blood glucose less than 70 mg/dL and patient NOT ALERT or NPO., If patient does not respond within 5 minutes, repeat dose x1. Start D5W at 100 mL/hour until ordering provider can be reached. Repeat blood glucose in 15 minutes. If blood glucose is less than 70 mg/dL, repeat treatment and recheck blood glucose in 15 minutes x2. If using Glucostabilizer, dose as instructed per system. glucagon (rDNA) injection 1 mg 1 mg, IntraMUSCular, PRN, Starting on Sat06/16/21 at 1950, Until Discontinued, Low blood sugar, Blood glucose less than 70 mg/dL and patient NOT ALERT or NPO and does not have IV access., After administration, attempt intravenous access and start D5W at 100 mL/hr. Repeat blood glucose in 15 minutes x2 and notify provider. glucose (GLUTOSE) 40 % oral gel 15 g 15 g, Oral, PRN, Starting on Sat06/16/21 at 1950, Until Discontinued, Low blood sugar, If blood glucose less than 50 mg/dL and patient ALERT and TOLERATING PO, give 2 tubes glucose gel. If blood glucose less than 70 mg/dL and patient ALERT and TOLERATING PO, give 1 tube glucose gel. Repeat blood glucose in 15 minutes. If blood glucose is less than 70 mg/dL, repeat treatment and recheck blood glucose in 15 minutes x2 and notify provider. sodium chloride flush 0.9 % injection 5-40 mL 5-40 mL, IntraVENous, PRN, Starting on Sat06/16/21 at 1950, Until Discontinued, Line Care, After every IV line use, For Line Patency: Peripheral IV = 5 mL; Midline or Central Line = 10 mL/lumen. If following IV push medication, administer flush at same rate as the IV push. Flush volume is determined by type of infusion therapy being given. For non-viscous solutions use: Peripheral IV = 5 mL Midline or Central Line = 10 mL/lumen For viscous solutions (i.e. blood components, parenteral nutrition, contrast media, or after obtaining blood sample) use: Peripheral IV = 10 mL Midline or Central Line = 20 mL/lumen, Post-op Goals (unrecognized section and content) Goals may be documented in a n alternate sectionGoals may be documented in an alternate sectionGoals may be documented in an alternate sectionGoals may be documented in an alternate sectionGoals may be documented in an alternate sectionGoals may be documented in an alternate sectionGoals may be documented in an alternate sectionGoals may be documented in an alternate sectionGoals may be documented in an alternate sectionGoals may be documented in an alternate sectionGoals may be documented in an alternate sectionGoals may be documented in an alternate sectionGoals may be documented in an alternate sectionGoals may be documented in an alternate sectionGoals may be documented in an alternate sectionGoals may be documented in an alternate sectionGoals may be documented in an alternate sectionGoals may be documented in an alternate section FOR RECORDS PERTAINING TO PATIENTS WHO ARE OR HAVE BEEN ENROLLED IN A CHEMICAL DEPENDENCY/SUBSTANCEABUSE PROGRAM, SOME INFORMATION MAY BE OMITTED. This clinical summary was aggregated from multiple sources. Caution should be exercised in using it in the provision of clinical care. This summary normalizes information from multiple sources, and as a consequence, information in this document may materially change the coding, format and clinical context of patient data. In addition, data may be omitted in some cases. CLINICAL DECISIONS SHOULD BE BASED ON THE PRIMARY CLINICAL RECORDS. [facility] [email or web address] [facility]. provides no warranty or guarantee of the accuracy or completeness of information in this document.
--- NOTE | 2025-01-28 10:04 | RAD_ITS ---
PROCEDURE: CHEST 1 VIEW (PORTABLE) 01/28/2025 REASON FOR EXAM: DO WITHIN 2-4 HOURS OF PROCEDURE TECHNIQUE: Frontal view of the chest. COMPARISON: None FINDINGS: Hardware: A left-sided unipolar pacemaker is seen. Heart: Prior midline sternotomy. Lungs: Elevation of the right hemidiaphragm. The lungs are clear. No evidence of pneumothorax. Bones: Degenerative changes are identified within the thoracic spine. RAD/Chest 1 View (Portable) IMPRESSION: Status post left-sided unipolar pacemaker insertion. No evidence of pneumothorax. Reading Location: [place] [id number]
--- NOTE | 2025-01-28 10:12 | EX.DEFIBPROC ---
Defibrillator Procedure Note Defibrillator Procedure Note Procedure: Successful single chamber ICD implantation. Indication: Primary Prevention Ischemic Cardiomyopathy NYHA Class II LVEF 35% Findings: The patient was brought to the EP LAB in the fasting well-hydrated state and prepped and draped in the usual sterile fashion. Local anesthesia with 2% lidocaine was used to achieve a numbing effect in the LEFT pectoral region. In addition, conscious sedation with iv versed/morphine was administered. I was present with the patient for the duration of moderate sedation and supervised staff who had no other duties and monitored the patient for the entire procedure. Details of monitoring are stored in laboratory flow sheet. An incision was made 2 fingerbreadths below the left clavicle and a pocket was made by blunt dissection. Bleeding vessels were coagulated using electrocautery. Using modified Seldinger technique, after a left upper extremity venogram, a guidewire was placed into the left axillary vein down to the low RA. Through a venous sheath the RV lead was passed into the RV apex. The active screw mechanism was extended. Adequate pacing and sensing thresholds were measured. Diaphragmatic stimulation was excluded with high output pacing. The introducer sheath was peeled away. The lead was secured in the pocket using 0-Ethibond with initial suture tie made to the pectoralis muscle and fascia, followed by wrapping around and tying securely to the lead sleeves. In addition, a purse string suture was tied around the lead entry site with 2-0 Vicryl for hemostasis. The leads were connected to the single chamber ICD generator. The pocket was irrigated with antibiotic solution. The pulse generator was placed into the pocket with redundant lead allowed to form a viviane coil behind the pulse generator. The pocket was irrigated with antibiotic solution. The pocket was closed in 2 layers with 2-0 and 3-0 Vicryl for the subcutaneous and subcuticular layers respectively. Hemostasis was achieved with manual pressure. Upon closure no bleeding was noted. A sterile dressing was applied. The patient was recovered and sent to their room in stable condition. Complications: none. Specimens: none. Estimated blood loss: 10mL. IMPLANTED DEVICES ICD [place] VR MRI DF4 Model # Serial # Interactive Video Technician Implant Date Implant Site Status Is Primary [id number] Med[employer]onic 01/28/2025 L Pect SQ Implanted Yes LEADS AND ADAPTERS Chamber Model # Length Serial # Interactive Video Technician Implant Date Implant Site Status Right Ventricle [id number] [employer] [place] [employer] 01/28/2025 RV-Septum Implanted STIMULATION THRESHOLD Not Applicable. IVCD (ms): 0 Diaphragmatic Stimulation: First Loss of Capture: Retrograde Conduction (ms): 0 DEVICE MEASURED DATA Pacing Threshold Chamber Pac P/R Wave (mV) Pacing Imp HVB Imp HVX Imp Test Shock V ms Right Ventricle 4.6 608 87 1.0 0.4 Note: Impedance given in Ohms MARGOT PARAMETER SETTINGS Pacing Mode: VVI Parameter Atrial RV LV Mode Switch: Off Amplitude (V): 3.5 Lower Rate:40 Pulse Width (ms): 0.4 Upper Tracking Rate: Sensitivity (mV): 0.3 Upper Activity Rate: Paced Polarity: Bipolar N/A Sense Polarity: Bipolar Capture Management: Paced A-V Interval:N/A Yes Ventricular Sense Response: Sensed A-V Interval:N/A Ventricular Pacing: Off Rate Adaptive A-V Interval:Off V to V Interval: N/A DETECTIONS PARAMETERS VF FVT VT Monitor Interval (ms) 320ms/188bpm 400ms/150bpm Initial (NID) 32 Redetect (NID) 02/09
[2025-01-28] MEDS: SACUBITRIL/VALSARTAN 97-103 MG TABLET 1 EACH PO (22:10)
[2025-01-29 03:24] VITALS: BP 94/64; PULSE 58; RESP 14; TEMP 36.7; O2SAT 95
--- NOTE | 2025-01-29 06:15 | RAD_ITS ---
PROCEDURE: CHEST 3 VIEW 01/29/2025 REASON FOR EXAM: POST PERMANANT ICD/PACEMAKER TECHNIQUE: Procedure Code: RADCXRPALATOB Modality: DX Procedure: CHEST 3 VIEW COMPARISON: 01.28.2025 report was reviewed. FINDINGS: Both lung el[place] are clear with no evidence of nodules or infiltrates. No pneumothorax or pleural effusion noted bilaterally. Heart size and its configuration appear to be within normal limits. Left-sided pacemaker is noted. Median sternotomy wires are again noted. Both the malcolm appear normal. Thoracic rib cage is intact. RAD/Chest 3 View IMPRESSION: No evidence of acute cardiopulmonary disease. Reading Location: [facility]
[2025-01-29 07:00] VITALS: BP 127/82; PULSE 66; RESP 17; TEMP 36.7; O2SAT 94
[2025-01-29] MEDS: Potassium Chloride Oral Tablet 10 MEQ PO (08:18)
--- NOTE | 2025-01-29 08:54 | DCINST_ITS ---
Discharge Instructions DC O2, CPAP, BIPAP needs Home O2 Discharge instructions: No Dressing / Incision Discharge Activity: Return to Normal Activity, May Drive and May Shower May resume sexual activity in: No Restrictions Dressing / Incision Call your doctor if you observe: Fever of 101 or Higher, Coldness, Increased Pain and Numbness or Tingling Change Dressing in: leave in place till F/U Follow Up Care Test Results: Test results from this visit will be discussed in further detail at your follow- up appointment, if applicable. Discharge Plan Admission Admit Date/Time: 01/28/25 10:03 Attending Provider: Porter Hale Primary Care Provider: Shan Nazario Discharge Orders/Prescriptions Prescriptions: No Action cholecalciferol (vitamin D3) [Vitamin D3] 2,000 unit capsule 2,000 unit PO DAILY psyllium husk [Daily Fiber] 0.4 gram capsule 0.4 g PO DAILY Acidophilus Capsule 100 mg PO DAILY (DME) lancets [Unilet Lancets] 30 gauge misc See Rx Instructions .Route Qty: 100 3RF Rx Instructions: Use 30-4x daily to monitor blood glucose for DMII tizanidine 4 mg tablet 12 mg PO QHS Qty: 90 10RF gabapentin 100 mg capsule 100 mg PO TID lansoprazole 15 MG tablet,disintegrat, delay rel 15 mg PO DAILY (DME) Handicap Placard See Rx Instructions .ROUTE .MEDSUPPLY Qty: 1 0RF Rx Instructions: As directed, length of time 3 years levothyroxine 100 mcg tablet 100 mcg PO DAILY Qty: 90 1RF (DME) blood-glucose meter Misc See Rx Instructions .Route Qty: 1 0RF Rx Instructions: Use 3-4x daily to monitor blood glucose for DMII (DME) True Metrix Glucose Test Strip Strip See Rx Instructions .Route Qty: 100 3RF Rx Instructions: Use 3-4x daily to monitor blood glucose for DMII (DME) pen needle, diabetic [Unifine Pentips] 32 gauge x 1/4" needle See Rx Instructions .Route Qty: 200 3RF Rx Instructions: use 4x daily to administer insulin as directed amlodipine 5 mg tablet 5 mg PO DAILY Qty: 90 3RF (DME) blood pressure monitor Kit See Rx Instructions .Route Qty: 1 0RF Rx Instructions: As directed carvedilol 12.5 mg tablet 12.5 mg PO BID Qty: 180 4RF Rx Instructions: must administer with a meal/food Jardiance 25 mg tablet 25 mg PO DAILY Qty: 90 1RF atorvastatin 80 mg tablet See Rx Instructions .ROUTE .COMPLEX Qty: 90 1RF Dose Instruction: TAKE 1 TABLET BY MOUTH EVERY DAY Rx Instructions: TAKE 1 TABLET BY MOUTH EVERY DAY insulin glargine [Lantus Solostar U-100 Insulin] 100 unit/mL (3 mL) insulin pen 60 unit subcut DAILY 90 Days Qty: 54 1RF Rx Instructions: Take 35 units at night 25 units in the AM sacubitril-valsartan 97-103 mg tablet 1 tab PO BID Qty: 180 3RF furosemide [Lasix] 20 mg tablet 20 mg PO QAM Qty: 30 3RF potassium chloride 10 mEq tablet,ER particles/crystals 10 meq PO QDAY Qty: 30 3RF (DME) FreeStyle Ynes 2 Sensor Kit See Rx Instructions .Route Qty: 1 6RF Rx Instructions: As directed (DME) FreeStyle Ynes 2 Plus Sensor Device See Rx Instructions .Route Qty: 2 4RF Rx Instructions: As directed to check blood glucose 2 times daily for DMII 2 boxes/month INSULIN DEPENDENT ICD: E11.9 insulin lispro [Humalog KwikPen Insulin] 100 unit/mL insulin pen 13 unit subcut TID 90 Days Qty: 35.1 1RF (DME) FreeStyle Ynes 2 [place] Misc See Rx Instructions .Route Qty: 1 3RF Rx Instructions: As directed; 3-4x daily to monitor blood glucose for DMII 2 boxes/month Referrals / Follow Up: Shan Nazario MD [Primary Care Provider, Internal Medicine]
--- NOTE | 2025-01-29 08:57 | PCM.DC ---
Discharge Instructions DC O2, CPAP, BIPAP needs Home O2 Discharge instructions: No Dressing / Incision Discharge Activity: May Not Drive May shower in (days): 2 May resume sexual activity in: No Restrictions Additional Activity Instructions:: May shower or bathe on [day 3]. Do not scrub the incision or soak in the tub. Just wash with soap and let the water run over the incision. Gently pat dry with towel. Medications: Take your pain medication as directed. Refer to your discharge instruction sheet for a list of medications you are to take. Dressing / Incision Call your doctor if your incision/area has: Continuous Slow Oozing, Sudden Increased Bleeding, Increased Pain/ Swelling, Increased Redness, Foul Smelling Discharge and Swelling at the incision site Call your doctor if you observe: Fever of 101 or Higher, Coldness, Increased Pain and Numbness or Tingling Suture Line Care: Avoid Pulling/Pushing and Avoid Pinching/Bending Additional Dressing/Incision Instructions:: When dressing is removed, wash and dry incision. Keep covered with a light bandage if it is rubbing against your clothing. Do not cover the incision with an airtight bandage. Change the bandage daily. Do not remove steri strips. The strips will fall off on their own. Follow Up Care Please Follow Up With: Tree Guido MD When: Pacer follow-up on as per office instructions Test Results: Test results from this visit will be discussed in further detail at your follow-up appointment, if applicable. Discharge Plan Admission Admit Date/Time: 01/28/25 10:03 Attending Provider: Porter Hale Primary Care Provider: Shan Nazario Discharge Orders/Prescriptions Prescriptions: Continued cholecalciferol (vitamin D3) [Vitamin D3] 2,000 unit capsule 2,000 unit PO DAILY psyllium husk [Daily Fiber] 0.4 gram capsule 0.4 g PO DAILY Acidophilus Capsule 100 mg PO DAILY (DME) lancets [Unilet Lancets] 30 gauge misc See Rx Instructions .Route Qty: 100 3RF Rx Instructions: Use 30-4x daily to monitor blood glucose for DMII tizanidine 4 mg tablet 12 mg PO QHS Qty: 90 10RF gabapentin 100 mg capsule 100 mg PO TID lansoprazole 15 MG tablet,disintegrat, delay rel 15 mg PO DAILY (DME) Handicap Placard See Rx Instructions .ROUTE .MEDSUPPLY Qty: 1 0RF Rx Instructions: As directed, length of time 3 years levothyroxine 100 mcg tablet 100 mcg PO DAILY Qty: 90 1RF (DME) blood-glucose meter Misc See Rx Instructions .Route Qty: 1 0RF Rx Instructions: Use 3-4x daily to monitor blood glucose for DMII (DME) True Metrix Glucose Test Strip Strip See Rx Instructions .Route Qty: 100 3RF Rx Instructions: Use 3-4x daily to monitor blood glucose for DMII (DME) pen needle, diabetic [Unifine Pentips] 32 gauge x 1/4" needle See Rx Instructions .Route Qty: 200 3RF Rx Instructions: use 4x daily to administer insulin as directed amlodipine 5 mg tablet 5 mg PO DAILY Qty: 90 3RF (DME) blood pressure monitor Kit See Rx Instructions .Route Qty: 1 0RF Rx Instructions: As directed carvedilol 12.5 mg tablet 12.5 mg PO BID Qty: 180 4RF Rx Instructions: must administer with a meal/food Jardiance 25 mg tablet 25 mg PO DAILY Qty: 90 1RF atorvastatin 80 mg tablet See Rx Instructions .ROUTE .COMPLEX Qty: 90 1RF Dose Instruction: TAKE 1 TABLET BY MOUTH EVERY DAY Rx Instructions: TAKE 1 TABLET BY MOUTH EVERY DAY insulin glargine [Lantus Solostar U-100 Insulin] 100 unit/mL (3 mL) insulin pen 60 unit subcut DAILY 90 Days Qty: 54 1RF Rx Instructions: Take 35 units at night 25 units in the AM sacubitril-valsartan 97-103 mg tablet 1 tab PO BID Qty: 180 3RF furosemide [Lasix] 20 mg tablet 20 mg PO QAM Qty: 30 3RF potassium chloride 10 mEq tablet,ER particles/crystals 10 meq PO QDAY Qty: 30 3RF (DME) FreeStyle Ynes 2 Sensor Kit See Rx Instructions .Route Qty: 1 6RF Rx Instructions: As directed (DME) FreeStyle Ynes 2 Plus Sensor Device See Rx Instructions .Route Qty: 2 4RF Rx Instructions: As directed to check blood glucose 2 times daily for DMII 2 boxes/month INSULIN DEPENDENT ICD: E11.9 insulin lispro [Humalog KwikPen Insulin] 100 unit/mL insulin pen 13 unit subcut TID 90 Days Qty: 35.1 1RF (DME) FreeStyle Ynes 2 [place] Misc See Rx Instructions .Route Qty: 1 3RF Rx Instructions: As directed; 3-4x daily to monitor blood glucose for DMII 2 boxes/month Referrals / Follow Up: Shan Nazario MD [Primary Care Provider, Internal Medicine] Disposition Disposition (needs filled in before D/C Order can be placed): Home, Self Care
--- NOTE | 2025-01-29 10:33 | CASEMGMT ---
Patient has order for discharge. RN CM in to discuss needs at discharge, at bedside. Patient denies needs or help at discharge. Patient had no further questions or concerns.
[2025-01-29] MEDS: SACUBITRIL/VALSARTAN 97-103 MG TABLET 1 EACH PO (10:47)
[2025-01-29] MEDS: Cholecalciferol (VIT D3) 25 MCG TABLET (1,000 UNITS) 50 MCG PO (10:49)
[2025-01-29] MEDS: Insulin Glargine-YFGN 100 UNIT/ML Pen 25 UNIT SC (10:52)
== END 2025-01-29 12:39 | disposition home or self-care (01) ==
LOC: PCU 10:22
PROVIDERS: Admitting Provider Internal Medicine Clinical Cardiac Electrophysiology; PCP Internal Medicine; Referring Provider Internal Medicine Clinical Cardiac Electrophysiology; Visit Provider Internal Medicine Clinical Cardiac Electrophysiology
DX: Z45.02 Encounter for adjustment and management of automatic implantable cardiac defibrillator (principal); I11.0 Hypertensive heart disease with heart failure; I50.22 Chronic systolic (congestive) heart failure; E11.9 Type 2 diabetes mellitus without complications; Z79.4 Long term (current) use of insulin; I25.5 Ischemic cardiomyopathy; R00.1 Bradycardia, unspecified; Z86.79 Personal history of other diseases of the circulatory system; R07.9 Chest pain, unspecified; I25.10 Atherosclerotic heart disease of native coronary artery without angina pectoris; Z95.1 Presence of aortocoronary bypass graft; Z95.5 Presence of coronary angioplasty implant and graft; E78.00 Pure hypercholesterolemia, unspecified; R94.31 Abnormal electrocardiogram [ECG] [EKG]; Z79.899 Other long term (current) drug therapy; E03.9 Hypothyroidism, unspecified; Z79.890 Hormone replacement therapy; Z87.891 Personal history of nicotine dependence
CPT/HCPCS: 33249; 36415; 71045; 71046; 71047; 80048; 81001; 82962; 85027; 99152; 99153; 99221; C1894; G0378

== ENCOUNTER → 2025-02-09 | Outpatient (CLI) | payer MEDICARE, OTHER, SELFPAY ==
[2020-06-09 15:37] VITALS: BMI 34.2
[2025-02-09 10:59] LABS: Hematocrit 46.9 % (40-54); Hemoglobin 15.2 g/dL (13.0-16.5); Immature Granulocytes Count 0.030 X10^3/uL (0.0-0.0); Mean Corp Hgb Conc 32.4 g/dL (32-36); Mean Corpuscular Volume 96.1 fL (80-94); Mean Platelet Vol. 10.4 fl (6.2-12.0); NRBC Flagged by Analyzer 0 % (0-5); Platelet Count 132 K/mm3 (150-450); RBC Distribution Width CV 14.0 % (11.6-14.6); RBC Distribution Width SD 49.5 fl (35.1-43.9); Red Blood Count 4.88 M/mm3 (4.6-6.2); White Blood Count 6.2 K/mm3 (4.4-11.0)
[2025-02-09 11:26] LABS: Anion Gap 12 (5-15); BUN 20 mg/dL (4-19); BUN/Creat Ratio 15.5 RATIO (10-20); Calcium,Total 9.2 mg/dL (7.6-11.0); Carbon Dioxide 23.5 mmol/L (21.0-32.0); Chloride 103 mmol/L (98-108); Glucose 171 mg/dL (70-99); Potassium 4.6 mmol/L (3.3-5.1); Pro- Brain NATRIURETIC PEPTIDE 558 pg/mL (<=900)
== END | disposition home or self-care (01) ==
LOC: LAB 09:36
PROVIDERS: PCP Internal Medicine; Referring Provider Nurse Practitioner Gerontology; Visit Provider Nurse Practitioner Gerontology
DX: R06.02 Shortness of breath (principal)
CPT/HCPCS: 36415; 80048; 83880; 85025

== ENCOUNTER → 2025-02-22 | Outpatient (CLI) | payer MEDICARE, OTHER, SELFPAY ==
[2020-06-09 15:37] VITALS: BMI 34.2
--- NOTE | 2025-02-22 09:15 | CDU_ITS ---
Reason For Study Reason For Study: Dizziness Rt. Velocities/BP Lt. Velocities/BP Prox CCA 65.5/12.6 cm/sec. Prox CCA 79/16.3 cm/sec. Mid CCA 60.7/12.6 cm/sec. Mid CCA 71.6/11.4 cm/sec. Dist CCA 60.7/12.6 cm/sec. Dist CCA 55.6/10.2 cm/sec. Prox ICA 53.2/15.1 cm/sec. Prox ICA 65.2/16.8 cm/sec. Mid ICA 82.6/24.9 cm/sec. Mid ICA 66.3/25.6 cm/sec. Dist ICA 77.7/26.2 cm/sec. Dist ICA 94.9/27.8 cm/sec. Rt. ICA/CCA = 1.36. Lt. ICA/CCA = 1.33. Prox ECA 106/17.6 cm/sec. Prox ECA 158.7/24.8 cm/sec. Rt. Vert. 55.6/15.1 cm/sec. Lt. Vert. 59.8/14.5 cm/sec. Right Extracranial There is intimal thickening but no significant atherosclerotic plaque noted in the right common carotid artery. There is heterogeneous, irregular atherosclerotic plaque noted in the right internal carotid artery. There is heterogeneous, irregular atherosclerotic plaque noted in the right external carotid artery. Antegrade flow is noted in the right vertebral artery. Left Extracranial There is intimal thickening but no significant atherosclerotic plaque noted in the left common carotid artery. There is heterogeneous, irregular atherosclerotic plaque noted in the left internal carotid artery. There is heterogeneous, irregular atherosclerotic plaque noted in the left external carotid artery. Antegrade flow is noted in the left vertebral artery. Procedure Carotid Duplex [id number]. This is a Carotid Duplex examination using B-mode, color flow and specral Doppler. Exam performed in department. VL/Carotid Duplex Ultrasound Interpretation Summary Mild (<50%) stenosis right extracranial internal carotid. Mild (<50%) stenosis left extracranial internal carotid. Patent and antegrade vertebrals bilaterally. Ordering Physician: Kaleigh Huerta Referring Physician: Shan Nazario Performed By: Larisa Jimenez RVT
== END | disposition home or self-care (01) ==
LOC: CVS 09:15
PROVIDERS: PCP Internal Medicine; Referring Provider Nurse Practitioner Gerontology; Visit Provider Nurse Practitioner Gerontology
DX: R42 Dizziness and giddiness (principal)
CPT/HCPCS: 93880